=== PATIENT | male | born 1960 | race Caucasian/White ===

== ENCOUNTER 2017-03-09 10:45 | Emergency (ER) | payer MEDICARE, MEDICAID, SELFPAY ==
[2017-03-09 10:49] VITALS: BMI 40.3
--- NOTE | 2017-03-09 10:55 | CT_ITS ---
CT head/brain wo con Ordering Physician: Aubrey Barry MD Patient Age: 56 years: Male HISTORY: ITS.REASON: pinpoint pupils and lethargic . Mental status change. Pinpoint pupils. Lethargic. TECHNIQUE: Routine Axial CT head without contrast, brain and bone windows performed and sent to PACS COMPARISON :CT head without contrast 05/24/2015 FINDINGS Large extra axial slice subdural collection diffusely overlying the left cerebral hemisphere. It measures up to 17 mm maximum thickness in some areas. Is seen diffusely over the left cerebral hemisphere but most pronounced at left temporal lobe and frontal lobe just above the sylvian fissure.. . There is also small amount acute hyperdense subdural blood left extending into the anterior falx. .. Overall this subdural collection is hyperdense reflecting primarily acute blood, but there are some less dense areas here which may reflect prior subdural bleeding as well The resulting Prominent mass effect compresses entire left cerebral hemisphere,. This obliterates the sulci throughout the left cerebral hemisphere. & yields over 11 mm midline shift reflecting the transfalcine herniation. The left temporal horn is compressed/ obliterated. The left lateral ventricle is significantly compressed.. The ambient cistern remains evident but becomes asymmetric as we follow continue superior to this level on left.. Right cerebral hemisphere on, with no additional acute findings other than the stated mass effect... A which may contribute to the relative dilatation of occipital horn right lateral ventricle on today's study.. Right temporal horn unchanged. Tiny old lacunar infarct at the head of caudate on right measuring 4 mm x 2 mm, no change since previous CT. Posterior fossa. No significant change. Again the generous CSF space posterior to the cerebellar hemisphere noted, most evident the left. Prominent mucosal thickening bilateral ethmoid air cells with mild mucosal thickening sphenoid sinus and at the partially imaged maxillary sinuses. No skull fracture evident. Text notifying me to read this study received at 1138 Critical result called to KELLY Jones on 03/09/2017 11:43PM. But he had already reviewed and initiated helicopter transport. IMPRESSION 1.... Large, extensive Acute Hyperdense Subdural Hematoma overlying the left cerebral hemisphere.. Acute subdural blood is also seen between and along the anterior falx This large subdural hematoma yields severe Mass Effect upon the left cerebral hemisphere With at least 11 mm midline shift/ transfalcine herniation. (ER reviewed immediately after study completed & promptly initiated helicopter transport)
--- NOTE | 2017-03-09 10:55 | XR_ITS ---
XR chest portable Ordering Physician: Aubrey Barry MD Patient Age: 56 years: Male HISTORY: ITS.REASON: pinpoint pupils and lethargic TECHNIQUE: AP portable upright chest 11:15 AM COMPARISON :Previous portable chest 12/11/2016 FINDINGS Less than optimal inspiration and slightly lordotic chest limits this study but I see no acute findings. Mild accentuation of markings at the medial right base and elevation right hemidiaphragm is again seen is similar to previous studies reflecting some minimal scarring and possibly atelectasis. The left lung is stable unchanged. Cardiomegaly is been ana and mediastinal structures some unchanged. IMPRESSION: ---- Stable portable chest with nothing definite acute. Mild elevation right hemidiaphragm withLikely minimal scarring & atelectasis at right lung base-unchanged since previous CXR November 2016 Cardiomegaly
--- NOTE | 2017-03-09 10:55 | HMH.EDGENADL ---
ED Disposition Clinical Impression: Acute subdural hematoma, Leucocytosis Disposition: Xfer Short-Term Hosp Condition on Discharge: Serious Instructions: DI for Altered Mental Status Referrals: Roney Travis MD [Primary Care Provider] - Forms: Transfer Record - ED - Critical Care Critical Care Time: No Attestation: On 03/09/17, the high probability of a clinically significant, sudden or life threatening deterioration of the following system(s) required my full and direct attention, intervention and personal management. The time I documented below is in addition to time spent performing reported procedures but includes the following listed in this critical care notation. Medical Decision Making Vital Signs: 03/09/17 11:00 03/09/17 11:29 Pulse Rate [Right Brachial] 117 H 98 H Respiratory Rate 24 24 Blood Pressure [Right Arm] 129/93 94/59 Blood Pressure Mean [Right Arm] 105 70 Blood Pressure Source [Right Arm] Automatic Cuff Automatic Cuff Blood Pressure Position [Right Arm] Sitting Sitting 02 Sat by Pulse Oximetry 99 95 Oxygen Delivery Method Non-Rebreather Nasal Cannula Oxygen Flow Rate (LPM) 3 - Lab Data Lab Results 03/09/17 11:10: WBC 15.2 H, RBC 3.27 L, Hgb 9.5 L, Hct 32.0 L, MCV 97.8 H, MCH 29.1, MCHC 29.7 L, RDW 16.2, Plt Count 468 H, MPV 7.4, Neut % (Auto) 75.7, Lymph % (Auto) 15.0, Lane % (Auto) 7.0, Eos % (Auto) 1.6, Baso % (Auto) 0.6, Neut # (Auto) 11.5 H, Lymph # (Auto) 2.3, Lane # (Auto) 1.1 H, Eos # (Auto) 0.3, Baso # (Auto) 0.1 Result diagrams: 03/09/17 11:10 Orders (Tests/Meds): ORDERS Category Date Time Status CT head/brain wo con Stat Cat Scan 03/09/17 10:55 Taken XR chest portable Stat Exams 03/09/17 10:55 Taken Acetaminophen Stat Lab 03/09/17 11:10 Received Cardiac Enzymes Stat Lab 03/09/17 11:10 Received Complete Blood Count Auto Diff Stat Lab 03/09/17 11:10 Results Comprehensive Metabolic Panel Stat Lab 03/09/17 11:10 Received Drug Screen,Urine Stat Lab 03/09/17 10:55 Ordered Salicylate Stat Lab 03/09/17 11:10 Received - CT Data CT Scan: Head Time Received: 11:[address] Reviewed: Yes: I have reviewed the patient's CT results, I discussed the CT results w/the radiologist Preliminary Findings: Abnormal Findings Narrative: Left acute subdural hemorrhage. X-rays cardiomegaly no acute findings. - ECG Data Tracing #1 I reviewed this ECG and interpreted as documented below: Normal sinus rhythm 95/min no acute findings ECG initial impression date: 03/09/17 - Gaudencio Inquiry Pt receiving controlled substance: No Gaudencio was queried for this patient: No Medical Decision Making Narrative: I reviewed Mr. quezada CT scan and was positive for left acute subdural hemorrhage. Chest x-ray was positive for cardiomegaly no acute. His EKG was 95 bpm normal sinus with nothing acute. I contacted at 1130 discussed with at 1136 accepted the patient to [facility]. The patient remained hemodynamically stable with BP 95/56 mmhg, sat 96% 3 L NC, HR 93/min RR 28/min with no focal neurologic deficits. He remained alert and communicative with the nursing staff. Dr. Gonzalez the radiologist contacted me and informing me of 11 mm midline shift. I relayed this information to at [facility]. Patient departed [place] ED in a stable condition with the helicopter crew. General Adult HPI - General Chief complaint: Altered Mental Status Stated complaint: unresponsive Mode of Arrival: EMS Source of Information: Patient Limitations: No Limitations - History of Present Illness HPI narrative: 56 years old white male with multiple medical problems was found unresponsive in bed by the custodial staff. EMS was contacted and upon arrival there was no report given. Obtain the following vitals from the EMS staff blood pressure was 152/86mmhg, sat is 98% on nonrebreather. Sugar is 238 twice. Pupils were pinpointed ,
--- NOTE | 2017-03-09 10:59 | ED_ITS ---
ED Disposition Clinical Impression: Acute subdural hematoma, Leucocytosis Disposition: Xfer Short-Term Hosp Condition on Discharge: Serious Instructions: DI for Altered Mental Status Referrals: Roney Travis MD [Primary Care Provider] - Forms: Transfer Record - ED - Critical Care Critical Care Time: No Attestation: On 03/09/17, the high probability of a clinically significant, sudden or life threatening deterioration of the following system(s) required my full and direct attention, intervention and personal management. The time I documented below is in addition to time spent performing reported procedures but includes the following listed in this critical care notation. Medical Decision Making Vital Signs: 03/09/17 11:00 03/09/17 11:29 Pulse Rate [Right Brachial] 117 H 98 H Respiratory Rate 24 24 Blood Pressure [Right Arm] 129/93 94/59 Blood Pressure Mean [Right Arm] 105 70 Blood Pressure Source [Right Arm] Automatic Cuff Automatic Cuff Blood Pressure Position [Right Arm] Sitting Sitting 02 Sat by Pulse Oximetry 99 95 Oxygen Delivery Method Non-Rebreather Nasal Cannula Oxygen Flow Rate (LPM) 3 - Lab Data Lab Results 03/09/17 11:10: WBC 15.2 H, RBC 3.27 L, Hgb 9.5 L, Hct 32.0 L, MCV 97.8 H, MCH 29.1, MCHC 29.7 L, RDW 16.2, Plt Count 468 H, MPV 7.4, Neut % (Auto) 75.7, Lymph % (Auto) 15.0, [place] % (Auto) 7.0, Eos % (Auto) 1.6, Baso % (Auto) 0.6, Neut # (Auto) 11.5 H, Lymph # (Auto) 2.3, [place] # (Auto) 1.1 H, Eos # (Auto) 0.3 , Baso # (Auto) 0.1 Result diagrams: 03/09/17 11:10 Orders (Tests/Meds): ORDERS Category Date Time Status CT head/brain wo con Stat Cat Scan 03/09/17 10:55 Taken XR chest portable Stat Exams 03/09/17 10:55 Taken Acetaminophen Stat Lab 03/09/17 11:10 Received Cardiac Enzymes Stat Lab 03/09/17 11:10 Received Complete Blood Count Auto Diff Stat Lab 03/09/17 11:10 Results Comprehensive Metabolic Panel Stat Lab 03/09/17 11:10 Received Drug Screen,Urine Stat Lab 03/09/17 10:55 Ordered Salicylate Stat Lab 03/09/17 11:10 Received - CT Data CT Scan: Head Time Received: 11:[address] Reviewed: Yes: I have reviewed the patient's CT results, I discussed the CT results w/the radiologist Preliminary Findings: Abnormal Findings Narrative: Left acute subdural hemorrhage. X-rays cardiomegaly no acute findings. - ECG Data Tracing #1 I reviewed this ECG and interpreted as documented below: Normal sinus rhythm 95/min no acute findings ECG initial impression date: 03/09/17 - Gaudencio Inquiry Pt receiving controlled substance: No Gaudencio was queried for this patient: No Medical Decision Making Narrative: I reviewed Mr. quezada CT scan and was positive for left acute subdural hemorrhage. Chest x-ray was positive for cardiomegaly no acute. His EKG was 95 bpm normal sinus with nothing acute. I contacted at 1130 discussed with at 1136 accepted the patient to [facility]. The patient remained hemodynamically stable with BP 95/56 mmhg, sat 96% 3 L NC, HR 93/min RR 28/min with no focal neurologic deficits. He remained alert and communicative with the nursing staff. Dr. Gonzalez the radiologist contacted me and informing me of 11 mm midline shift. I relayed this information to at [facility]. Patient departed [place] ED in a stable condition with the
[2017-03-09 11:00] VITALS: BP 129/93; PULSE 117; RESP 24; O2SAT 99; BMI 42.3
[2017-03-09 11:29] VITALS: BP 94/59; PULSE 98; RESP 24; O2SAT 95
--- NOTE | 2017-03-09 11:34 | PC.NURSE ---
1105- PT TO CT WITH NURSE AND CREDIT COLLECTIONS REP. 1123- PT BACK TO ED FROM CT.
--- NOTE | 2017-03-09 11:36 | PC.NURSE ---
1136- ON PHONE WITH FOR POSSIBLE TRANSFER.
--- NOTE | 2017-03-09 11:37 | PC.NURSE ---
1137- PT ACCEPTED BY AT [facility] ED.
[2017-03-09 11:42] LABS: Basophils # 0.1 K/mm3 (0-0.2); Basophils % 0.6 % (0.1-2.0); Eosinophils # 0.3 K/mm3 (0.0-0.4); Eosinophils % 1.6 % (0.1-12.0); Hemoglobin 9.5 g/dL (14.1-18.0); Lymphocytes # 2.3 K/mm3 (0.7-4.5); Mean Corpuscular HGB Conc 29.7 g/dL (31.8-35.4); Mean Corpuscular Hemoglobin 29.1 pg (27.0-31.2); Mean Corpuscular Volume 97.8 fl (80-94); Mean Platelet Volume 7.4 fl (7.4-10.4); Monocytes # 1.1 K/mm3 (0.1-1.0); Neutrophils # 11.5 K/mm3 (1.8-7.8); Neutrophils % 75.7 % (37.0-80.0); Platelet Count 468 K/mm3 (142-424); Red Blood Count 3.27 M/mm3 (4.60-6.20); Red Cell Distribution Width 16.2 % (11.5-17.5); White Blood Count 15.2 K/mm3 (4.8-10.8)
[2017-03-09 11:43] LABS: MANUAL DIFFERENTIAL MANUAL DIFFERENTIAL (MANUAL DIFF)
[2017-03-09 12:05] VITALS: BP 94/59; PULSE 98; RESP 24; O2SAT 95
[2017-03-09 12:07] LABS: Eosinophils % 3 % (0-3); Lymphocytes % 20 % (10-50); Monocytes % 9 % (2-9); Neutrophils % 68 % (42-76); Platelet Estimate Slight Increase; RBC Morphology Normal; Total Cells Counted 100
[2017-03-09 12:16] LABS: Alanine Aminotransferase 29 U/L (12-78); Albumin Level 3.1 gm/dL (3.4-5.0); Albumin/Globulin Ratio 0.6 (1.1-1.8); Alkaline Phosphatase 100 U/L (46-116); Anion Gap 16.4 mEq/L (5-15); Aspartate Amino Transferase 33 U/L (15-37); Bilirubin,Total 0.4 mg/dL (0.2-1.0); Blood Urea Nitrogen 12 mg/dL (7-18); CKMB Relative Index 2.3 U/L (0-4.0); Calcium 8.6 mg/dL (8.5-10.1); Carbon Dioxide 26 mmol/L (21.0-32.0); Chloride 96 mmol/L (98-107); Creatine Kinase 341 U/L (39-308); Creatinine Clearance Estimated 47 mL/min (0-300); Creatinine,Serum 1.32 mg/dL (0.70-1.30); Estimated Glomerular Filt Rate 56 ml/min (>60); GFR (African American) 67 ML/MIN (>60); Globulin 5.6 gm/dl (1.3-3.2); Glucose 243 mg/dL (74-106); Potassium 4.4 mmoL/L (3.5-5.1); Salicylate 1.5 mg/dL (2.8-20.0); Sodium 134 mmol/L (136-145); Total Protein,Serum 8.7 gm/dL (6.4-8.2); Troponin I < 0.02 ng/ml (0.00-0.06)
[2017-03-09 12:18] LABS: Acetaminophen 0 ug/mL (10-30)
== END 2017-03-09 11:58 | disposition short-term general hospital (02) ==
PROVIDERS: Emergency Provider Emergency Medicine; PCP Emergency Medicine
DX: I62.01 Nontraumatic acute subdural hemorrhage (principal); D72.829 Elevated white blood cell count, unspecified
CPT/HCPCS: 70450; 71045; 80053; 80329; 82550; 82553; 84484; 85007; 85025; 93005; 96372; 99284

== ENCOUNTER → 2017-03-25 14:13 | Outpatient (POV) | payer MEDICARE, MEDICAID, SELFPAY | PROVIDERS: PCP Emergency Medicine; Visit Provider Internal Medicine | DX: Z00.00 Encounter for general adult medical examination without abnormal findings (principal) ==

== ENCOUNTER → 2017-10-14 11:22 | Outpatient (POV) | payer MEDICARE, MEDICAID, SELFPAY | PROVIDERS: PCP Emergency Medicine; Visit Provider Internal Medicine | DX: Z00.00 Encounter for general adult medical examination without abnormal findings (principal) ==

== ENCOUNTER 2017-11-10 19:42 | Observation (INO) ==
[2017-11-10 20:04] LABS: Basophils # 0.1 K/mm3 (0-0.2); Basophils % 0.4 % (0.1-2.0); Eosinophils # 0.3 K/mm3 (0.0-0.4); Eosinophils % 1.8 % (0.1-12.0); Hematocrit 31.3 % (42.0-52.0); Hemoglobin 9.8 g/dL (14.1-18.0); Lymphocytes # 1.5 K/mm3 (0.7-4.5); Lymphocytes % 10.5 K/mm3 (10-50); Mean Corpuscular HGB Conc 31.2 g/dL (31.8-35.4); Mean Corpuscular Hemoglobin 30.6 pg (27.0-31.2); Mean Corpuscular Volume 98.2 fl (80-94); Mean Platelet Volume 7.9 fl (7.4-10.4); Monocytes # 0.8 K/mm3 (0.1-1.0); Monocytes % 5.4 % (1.7-9.3); Neutrophils % 81.9 % (37.0-80.0); Platelet Count 329 K/mm3 (142-424); Red Blood Count 3.19 M/mm3 (4.60-6.20); Red Cell Distribution Width 14.5 % (11.5-17.5); White Blood Count 14.7 K/mm3 (4.8-10.8)
[2017-11-10 20:28] LABS: Albumin Level 3.2 gm/dL (3.4-5.0); Albumin/Globulin Ratio 0.7 (1.1-1.8); Anion Gap 12.3 mEq/L (5-15); Bilirubin,Total 0.2 mg/dL (0.2-1.0); Globulin 4.8 gm/dl (1.3-3.2); Potassium 4.3 mmoL/L (3.5-5.1)
--- NOTE | 2017-11-10 20:53 | Emergency Department Note ---
ED Disposition Clinical Impression: Abdominal pain Qualifiers: Abdominal location: left lower quadrant Qualified Code(s): R10.32 - Left lower quadrant pain Leucocytosis Qualifiers: Leukocytosis type: unspecified Qualified Code(s): D72.829 - Elevated white blood cell count, unspecified Disposition: Admitted as Observation Condition on Discharge: Good Instructions: DI for Acute Abdomen Referrals: Roney Travis MD [Primary Care Provider] - - Critical Care Critical Care Time: No Attestation: On 11/10/17, the high probability of a clinically significant, sudden or life threatening deterioration of the following system(s) required my full and direct attention, intervention and personal management. The time I documented below is in addition to time spent performing reported procedures but includes the following listed in this critical care notation. Medical Decision Making - Medical Records Medical records reviewed: Yes: I reviewed the patient's medical records. - Gaudencio Inquiry Pt receiving controlled substance: No Vital Signs: 11/10/17 19:43 11/10/17 20:24 11/10/17 20:30 Temperature 98.8 F Temperature Source Rectal Pulse Rate [Right Brachial] 109 H 103 H 95 H Respiratory Rate 19 18 16 Blood Pressure [Right Arm] 89/56 87/65 102/51 Blood Pressure Mean [Right Arm] 67 72 68 02 Sat by Pulse Oximetry 100 99 97 Oxygen Delivery Method Nasal Cannula Nasal Cannula Oxygen Flow Rate (LPM) 2 2 11/10/17 21:30 Temperature 98.7 F Temperature Source Oral Pulse Rate [Right Brachial] 91 H Respiratory Rate 17 Blood Pressure [Right Arm] 100/63 Blood Pressure Mean [Right Arm] 75 02 Sat by Pulse Oximetry 97 Oxygen Delivery Method Oxygen Flow Rate (LPM) - Lab Data Lab results reviewed: Yes: I reviewed the patient's lab results. Lab Results 11/10/17 19:50: WBC 14.7 H, RBC 3.19 L, Hgb 9.8 L, Hct 31.3 L, MCV 98.2 H, MCH 30.6, MCHC 31.2 L, RDW 14.5, Plt Count 329, MPV 7.9, Neut % (Auto) 81.9 H, Lymph % (Auto) 10.5, [place] % (Auto) 5.4, Eos % (Auto) 1.8, Baso % (Auto) 0.4, Neut # (Auto) 12.0 H, Lymph # (Auto) 1.5, [place] # (Auto) 0.8, Eos # (Auto) 0.3, Baso # (Auto) 0.1 11/10/17 19:50: Sodium 137, Potassium 4.3, Chloride 101, Carbon Dioxide 28, Anion Gap 12.3, BUN 15, Creatinine 2.18 H, Estimated Creat Clear 31, Estimated GFR 31 L, Est GFR ( Amer) 38 L, Glucose 108 H, Calcium 9.0, Total Bilirubin 0.2, AST 8 L, ALT 16, Alkaline Phosphatase 86, Total Protein 8.0, Albumin 3.2 L, Globulin 4.8 H, Albumin/Globulin Ratio 0.7 L, Amylase 55, Lipase 345 11/10/17 19:50: Lactate 3.3 H 11/10/17 21:00: Urine Color Yellow, Urine Appearance Clear, Urine pH 5.5, Ur Specific [place] 1.025, Urine Protein Negative, Urine Glucose (UA) Negative, Urine Ketones Negative, Urine Blood Negative, Urine Nitrate Negative, Urine Bilirubin Negative, Urine Urobilinogen 0.2, Ur Leukocyte Esterase Negative, Urine RBC None, Urine WBC 3-5, Ur Squamous Epith Cells 5-10, Urine Bacteria 1+, Hyaline Casts 3-5 Result diagrams: 11/10/17 19:50 11/10/17 19:50 Orders (Tests/Meds): ED MEDICATIONS Generic Name Dose Route Start Last Admin Trade Name Freq PRN Reason Stop Dose Admin Sodium Chloride 1,000 mls @ 999 mls/hr 11/10/17 21:45 Sod Chlor 0.9% 1000ml Bag IV 11/10/17 22:45 .Q1H1M ANSON Discontinued Medications Generic Name Dose Route Start Last Admin Trade Name Freq PRN Reason Stop Dose Admin Sodium Chloride 1,000 mls @ 999 mls/hr 11/10/17 20:15 11/10/17 20:13 Sod Chlor 0.9% 1000ml Bag IV 11/10/17 21:15 999 mls/hr .Q1H1M ANSON Administration Ondansetron HCl 4 mg 11/10/17 20:11 11/10/17 20:13 Zofran 4mg/2ml Vial IV 11/10/17 20:12 4 mg ONCE ONE Administration ORDERS Category Date Time Status CT abdomen pelvis wo con Stat Cat Scan 11/10/17 19:52 Taken Lactic Acid Follow Up (RFLX 1) Stat Lab 11/10/17 20:31 Ordered Urinalysis and Microscopic Stat Lab 11/10/17 21:00 Ordered - CT Data CT Scan: Abdomen, Pelvis Time Received: 22:[address] Reviewed: Yes: I have viewed the radiologist's interpretation Preliminary Findings: Normal/NAD Nausea/Vomiting/Diarrhea HPI - General Chief complaint: Abdominal Pain Stated complaint: abd pain Time Seen by Provider: 11/10/17 20:30 Mode of Arrival: EMS Source of Information: Patient, EMS, Medical Record Limitations: Physical Limitations Description of Symptoms (Recalled from ER Triage Doc. by RN): Brought in by EMS from [place] for c/o LLQ pain since 399, also with diarrhea. NH reported that they gave him something for the diarrhea earlier today, no c/o nausea. Also stated pt has had low BP - History of Present Illness HPI Narrative: lt lower abd pain today with reported diarrhea with no fever but low bp from ecf -pt denied any specific c/o at this time MD complaint: diarrhea, abdominal pain Onset (ago): day(s) Associated Abdominal Pain: Yes Location of pain: LLQ Severity: moderate Associated symptoms: denies other symptoms - Related Data Home Medications Medication Instructions Recorded Confirmed aripiprazole 15 mg tablet 15 mg PO HS 03/24/17 11/10/17 aspirin 81 mg tablet,delayed 81 mg PO ONCE 03/24/17 11/10/17 release atorvastatin 40 mg tablet 40 mg PO HS 03/24/17 11/10/17 bupropion HCl SR 200 mg tablet,12 150 mg PO BID 03/24/17 11/10/17 hr sustained-release docusate sodium 250 mg capsule 250 mg PO DAILYP PRN 03/24/17 11/10/17 furosemide 80 mg tablet 80 mg PO BID tab 03/24/17 11/10/17 levothyroxine 100 mcg tablet 50 mcg PO DAILY tab 03/24/17 11/10/17 loratadine 10 mg tablet 10 mg PO DAILY 03/24/17 11/10/17 losartan 25 mg tablet 25 mg PO DAILY 03/24/17 11/10/17 metformin 1,000 mg tablet 1,000 mg PO BID 03/24/17 11/10/17 tamsulosin 0.4 mg capsule 0.4 mg PO DAILY 03/24/17 11/10/17 trazodone 100 mg tablet 100 mg PO BID tab 03/24/17 11/10/17 isosorbide mononitrate ER 30 mg 30 mg PO DAILY 04/11/17 11/10/17 tablet,extended release 24 hr folic acid 0.8 mg capsule 0.8 mg PO DAILY 09/30/17 11/10/17 loperamide 2 mg capsule 2 mg PO Q4H 09/30/17 11/10/17 magnesium oxide 400 mg capsule 400 mg PO DAILY cap 09/30/17 11/10/17 potassium chloride 20 mEq oral 40 meq PO BID packet 09/30/17 11/10/17 packet spironolactone 50 mg tablet 50 mg PO BID tab 09/30/17 11/10/17 vitamin B complex tablet 1 tab PO DAILY 09/30/17 11/10/17 Acetaminophen 500 mg PO Q4HP PRN 11/10/17 11/10/17 Linagliptin [Tradjenta 5mg tablet] 5 mg PO DAILY 11/10/17 11/10/17 Omeprazole [Omeprazole 20mg 20 mg PO DAILY 11/10/17 11/10/17 Capsule] Allergies Allergy/AdvReac Type Severity Reaction Status Date / Time morphine [MORPHINE] Allergy Mild "HURTS Verified 08/05/17 18:06 STOMACH" [facility] History I have reviewed the patient's past medical history: Yes Medical History: Reports:: Anxiety, Asthma, Congestive Heart Failure, Coronary Artery Disease, Depression, Diabetes Mellitus Type 2, Gastroesophageal Reflux Disease(GERD), Hyperlipidemia, Hypertension, Lung Disease Denies:: Diabetes Mellitus Type 1, Internal Pacemaker, Seizures Other Medical History: Reports: Anemia, Hypothyroidism, Thyroid Disease, Other Comment: subdural hematoma Laterality Cases: Bilateral: Carpal Tunnel Release Other Surgeries: Yes: No Previous Surgery, Coronary Stent, EGD, Hernia Repair, Other. No: Pacemaker Amputation: No Fractures: No - Social History Smoking Status: Former smoker Alcohol Intake: never Alcohol Intake Frequency:: other Substance Use Type: denies use - Psychiatric History Expresses thoughts of harming self/others: None Suicide Plan Description: No Plan Pschychiatric History:: Reports:: Anxiety, Depression Family Hx:: Hyperlipidemia, Diabetes, Heart Attack, Kidney Disease Comment: lung disease, ROS Obtained: Yes All systems reviewed & no additional complaints - Constitutional Constitutional: Denies fever(s) - Eyes Eyes: Denies change in vision - ENT Ears, Nose, Mouth, and Throat: Denies sore throat - Cardiovascular Cardiovascular: Denies chest pain - Respiratory Respiratory: No cough - Gastrointestinal Gastrointestingal: Reports: as per HPI, abdominal pain, diarrhea. Denies: vomiting - Genitourinary Male Genitourinary: Denies hematuria - Musculoskeletal Musculoskeletal: Denies joint pain - Integumentary/Breasts Skin/Breast: Denies rash - Neurologic Neurologic: Denies seizure-like activity Physical Exam - General General appearance: in no apparent distress, obese - Head Head exam: normocephalic - Eye Eye exam: Present: PERRL, EOMI - ENT ENT exam: Present: mucous membranes dry - Neck Neck exam: Present: trachea midline - Respiratory Respiratory exam: Present: other (dec bs bilat ) - Cardiovascular Cardiovascular exam: Present: regular rate, systolic murmur - Abdominal Exam Abdominal exam: Present: soft, tenderness Abdominal tenderness: Present: LLQ - Extremities Exam Extremities exam: Absent: calf tenderness - Neurological Exam Neurological exam: Present: alert, CN II-XII intact - Psychiatric Psychiatric exam: Present: normal affect - Skin Skin exam: Absent: rash
[2017-11-10 21:04] LABS: Microscopic, Urine URINE MICROSCOPIC (MICROSCOPIC)
[2017-11-10 21:24] LABS: Appearance,Urine CLEAR (Clear); Bilirubin,Urine Negative (Negative); Blood, Urine Negative (Negative); Color,Urine YELLOW (Yellow); Glucose,Urine (UA) Negative (Negative); Ketones,Urine Negative (Negative); Leukocyte Esterase,Urine Negative (Negative); PH,Urine 5.5 (5.0-8.5); Protein,Urine Negative (Negative); Specific Gravity, Urine 1.025 (1.005-1.030); Urobilinogen,Urine 0.2 EU/dl (0.2)
[2017-11-10 21:43] LABS: Bacteria,Urine 1+ /lpf
[2017-11-11 06:22] LABS: Basophils % 0.4 % (0.1-2.0); Eosinophils # 0.2 K/mm3 (0.0-0.4); Eosinophils % 2.4 % (0.1-12.0); Hematocrit 25.4 % (42.0-52.0); Lymphocytes # 1.9 K/mm3 (0.7-4.5); Lymphocytes % 19.4 K/mm3 (10-50); Mean Corpuscular HGB Conc 31.7 g/dL (31.8-35.4); Mean Corpuscular Hemoglobin 31.5 pg (27.0-31.2); Mean Corpuscular Volume 99.6 fl (80-94); Mean Platelet Volume 8.7 fl (7.4-10.4); Monocytes # 0.7 K/mm3 (0.1-1.0); Monocytes % 6.6 % (1.7-9.3); Neutrophils # 7.1 K/mm3 (1.8-7.8); Neutrophils % 71.2 % (37.0-80.0); Platelet Count 265 K/mm3 (142-424); Red Blood Count 2.55 M/mm3 (4.60-6.20); Red Cell Distribution Width 14.5 % (11.5-17.5)
[2017-11-11 06:41] LABS: Anion Gap 10.9 mEq/L (5-15); Potassium 3.9 mmoL/L (3.5-5.1)
[2017-11-11 06:47] LABS: Calcium 7.7 mg/dL (8.5-10.1)
--- NOTE | 2017-11-11 07:55 | Pharmacy Consult Notes ---
[facility] Pharmacy VTE Monitoring - Patient Demographics Admission date: 11/10/17 Report Date: 11/11/17 Time: 07:55 Allergies/Adverse Reactions: Patient Allergies morphine [MORPHINE] Allergy (Mild, Verified 08/05/17 18:06) "HURTS STOMACH" Height: 1.57 m Weight: 99.8 kg Patient Problems: Current Active Problems Leucocytosis (Acute) Abdominal pain (Acute) - VTE Risk Labs: VTE Related Lab Results Hgb 8.0 g/dL (14.1-18.0) L 11/11/17 06:15 Hct 25.4 % (42.0-52.0) L 11/11/17 06:15 Plt Count 265 K/mm3 (142-424) 11/11/17 06:15 BUN 12 mg/dL (7-18) 11/11/17 06:15 Creatinine 1.75 mg/dL (0.70-1.30) H 11/11/17 06:15 Estimated Creat Clear 65 mL/min (0-300) 11/11/17 06:15 Was VTE Risk Assessment Performed: Yes VTE Score: 8 VTE Risk Level: Moderate Risk - Prophylaxis VTE Prophylaxis Ordered?: Yes Types of VTE Prophylaxis: TEDS Knee High Location of Applied Device: Bilateral Lower Extremeties - VTE Diagnosis Confirmed Treatment or plan recommended: Continue Current Treatment
--- NOTE | 2017-11-11 09:04 | History & Physical Report ---
*Admission Date: 11/10/17 *Chief complaint: abd pain *History of present illness: pt with abd pain and low bp at [facility] and no vomiting and had an episode of diarrhea -pt with no fever - pt c/o of intermittant lower abd pain on left - pt was seen in the ed with inc wbc, sed rate and lactic acid - pt was admitted for ivf and given abx at this time [facility] History I have reviewed the patient's past medical history: Yes Medical History: Reports:: Anxiety, Asthma, Congestive Heart Failure, Coronary Artery Disease, Depression, Diabetes Mellitus Type 2, Gastroesophageal Reflux Disease(GERD), Hyperlipidemia, Hypertension, Lung Disease Denies:: Cancer, Diabetes Mellitus Type 1, Internal Pacemaker, Seizures Other Medical History: Reports: Anemia, Hypothyroidism, Thyroid Disease, Other Laterality Cases: Bilateral: Carpal Tunnel Release Other Surgeries: Yes: No Previous Surgery, Coronary Stent, EGD, Hernia Repair, Other. No: Pacemaker Amputation: No Fractures: No - *Social History Educational Level: Completed High School Smoking Status: Former smoker Tobacco Type: cigarettes Alcohol Intake: former Alcohol Intake Frequency:: other Substance Use Type: marijuana Occupational Status: disabled Housing: [facility] Household Members: other - Psychiatric History Expresses thoughts of harming self/others: None Suicide Plan Description: No Plan Pschychiatric History:: Reports:: Anxiety, Depression *Family Hx:: Hyperlipidemia, Diabetes, Heart Attack, Kidney Disease Review of Systems - Review of Systems Review of systems:: pertinent systems reviewed and negative unless documented below - Constitutional Denies fever(s) - Eyes Denies change in vision - ENT Denies sore throat - *Cardiovascular Denies chest pain at rest - *Respiratory Denies cough - *Gastrointestinal Reports abdominal pain, Denies bright, red blood in stools, Denies nausea, Denies vomiting - *Genitourinary Denies decreased urination - *Musculoskeletal Denies joint pain - Integumentary/Breasts Denies rash - *Neurologic Denies seizure-like activity Meds Home Medications Medication Instructions Recorded Confirmed Type aripiprazole 15 mg tablet 15 mg PO HS 03/24/17 11/10/17 History aspirin 81 mg tablet,delayed 81 mg PO DAILY 03/24/17 11/11/17 History release atorvastatin 40 mg tablet 40 mg PO HS 03/24/17 11/10/17 History bupropion HCl SR 200 mg tablet,12 150 mg PO BID 03/24/17 11/10/17 History hr sustained-release docusate sodium 250 mg capsule 250 mg PO DAILY 03/24/17 11/11/17 History furosemide 80 mg tablet 80 mg PO BID tab 03/24/17 11/10/17 History loratadine 10 mg tablet 10 mg PO DAILY 03/24/17 11/10/17 History losartan 25 mg tablet 25 mg PO DAILY 03/24/17 11/10/17 History metformin 1,000 mg tablet 1,000 mg PO BID 03/24/17 11/10/17 History isosorbide mononitrate ER 30 mg 30 mg PO DAILY 04/11/17 11/10/17 History tablet,extended release 24 hr folic acid 0.8 mg capsule 0.8 mg PO DAILY 09/30/17 11/10/17 History loperamide 2 mg capsule 2 mg PO Q4HP PRN 09/30/17 11/11/17 History magnesium oxide 400 mg capsule 400 mg PO HS cap 09/30/17 11/11/17 History spironolactone 50 mg tablet 50 mg PO BID tab 09/30/17 11/10/17 History Acetaminophen 500 mg PO Q4HP PRN 11/10/17 11/10/17 History Linagliptin [Tradjenta 5mg tablet] 5 mg PO DAILY 11/10/17 11/10/17 History Omeprazole [Omeprazole 20mg 20 mg PO Q48H 11/10/17 11/11/17 History Capsule] Cyanocobalamin (Vitamin B-12) 750 mcg PO DAILY 11/11/17 11/11/17 History [Vitamin B-12] Levothyroxine Sodium 50 mcg PO DAILY 11/11/17 11/11/17 History [Levothyroxine 50mcg (0.05mg) Tab] Olopatadine HCl [Patanol] 1 drop OP BID 11/11/17 11/11/17 History Potassium Chloride [Klor-con 20 40 meq PO BID 11/11/17 11/11/17 History mEq tablet] Tamsulosin HCl [Flomax 0.4mg 0.4 mg PO DAILY 11/11/17 11/11/17 History capsule] Trazodone HCl 100 mg PO HS 11/11/17 11/11/17 History Allergies Allergy/AdvReac Type Severity Reaction Status Date / Time morphine [MORPHINE] Allergy Mild "HURTS Verified 08/05/17 18:06 STOMACH" Exam Vital signs and Labs for Last 24 Hours: Temp Pulse Resp BP Pulse Ox 97.3 F L 78 16 108/53 98 11/11/17 08:00 11/11/17 08:00 11/11/17 08:00 11/11/17 08:00 11/11/17 08:00 Laboratory Results - last 24 hr 11/10/17 19:50: WBC 14.7 H, RBC 3.19 L, Hgb 9.8 L, Hct 31.3 L, MCV 98.2 H, MCH 30.6, MCHC 31.2 L, RDW 14.5, Plt Count 329, MPV 7.9, Neut % (Auto) 81.9 H, Lymph % (Auto) 10.5, [place] % (Auto) 5.4, Eos % (Auto) 1.8, Baso % (Auto) 0.4, Neut # (Auto) 12.0 H, Lymph # (Auto) 1.5, [place] # (Auto) 0.8, Eos # (Auto) 0.3, Baso # (Auto) 0.1 11/10/17 19:50: Sodium 137, Potassium 4.3, Chloride 101, Carbon Dioxide 28, Anion Gap 12.3, BUN 15, Creatinine 2.18 H, Estimated Creat Clear 31, Estimated GFR 31 L, Est GFR ( Amer) 38 L, Glucose 108 H, Calcium 9.0, Total Bilirubin 0.2, AST 8 L, ALT 16, Alkaline Phosphatase 86, Total Protein 8.0, Albumin 3.2 L, Globulin 4.8 H, Albumin/Globulin Ratio 0.7 L, Amylase 55, Lipase 345 11/10/17 19:50: Lactate 3.3 H 11/10/17 19:50: ESR > 120 H 11/10/17 19:50: C-Reactive Protein 3.2 H 11/10/17 21:00: Urine Color Yellow, Urine Appearance Clear, Urine pH 5.5, Ur Specific [place] 1.025, Urine Protein Negative, Urine Glucose (UA) Negative, Urine Ketones Negative, Urine Blood Negative, Urine Nitrate Negative, Urine Bilirubin Negative, Urine Urobilinogen 0.2, Ur Leukocyte Esterase Negative, Urine RBC None, Urine WBC 3-5, Ur Squamous Epith Cells 5-10, Urine Bacteria 1+, Hyaline Casts 3-5 11/10/17 23:53: Lactate 2.8 H 11/11/17 01:50: Lactate 2.2 H 11/11/17 05:08: POC Glucose 115 H 11/11/17 05:30: Stool Occult Blood Negative 11/11/17 06:15: WBC 10.0 D, RBC 2.55 L, Hgb 8.0 L, Hct 25.4 L, MCV 99.6 H, MCH 31.5 H, MCHC 31.7 L, RDW 14.5, Plt Count 265, MPV 8.7, Neut % (Auto) 71.2, Lymph % (Auto) 19.4, [place] % (Auto) 6.6, Eos % (Auto) 2.4, Baso % (Auto) 0.4, Neut # (Auto) 7.1, Lymph # (Auto) 1.9, [place] # (Auto) 0.7, Eos # (Auto) 0.2, Baso # (Auto) 0.0 11/11/17 06:15: Sodium 137, Potassium 3.9, Chloride 103, Carbon Dioxide 27, Anion Gap 10.9, BUN 12, Creatinine 1.75 H, Estimated Creat Clear 65, Estimated GFR 40 L, Est GFR ( Amer) 49 L D, Glucose 100, Calcium 7.7 L D I & O for Last 24 hours: Intake & Output 11/08/17 11/09/17 11/10/17 11/11/17 11:59 11:59 11:59 11:59 Intake Total 1999 / 1999 Output Total 1100 / 1100 Balance 900 / 900 Weight 220 lb 0.341 oz - Constitutional no acute distress, obese - *Routine HEENT Exam Head: Present: normocephalic Eye: Present: EOMI, PERRL ENT: Present: mucous membranes dry - *Routine Neck Exam Present: supple - *Routine Respiratory Exam Present: decreased breath sounds - *Routine Cardiovascular Exam Present: RRR, murmur - *Routine Abdominal Exam Present: soft, tenderness - *Routine Extremities Exam Present: edema - *Routine Skin Exam Present: intact - *Routine Neurological Exam Present: alert, CN II-XII intact - Routine Psychiatric Exam Present: unable to assess Assessment and Plan (1) Elevated erythrocyte sedimentation rate Current visit: Yes Status: Acute Category: Medical Code(s): R70.0 - Elevated erythrocyte sedimentation rate (2) Abdominal pain Current visit: Yes Status: Acute Qualifiers: Abdominal location: left lower quadrant Qualified Code(s): R10.32 - Left lower quadrant pain Category: Medical Code(s): R10.9 - Unspecified abdominal pain (3) Anemia Current visit: Yes Status: Acute Qualifiers: Anemia type: unspecified type Qualified Code(s): D64.9 - Anemia, unspecified Category: Medical Code(s): D64.9 - Anemia, unspecified (4) Obesity Current visit: Yes Status: Acute Qualifiers: Body mass index: BMI 40.0-44.9 Category: Medical Code(s): E66.9 - Obesity, unspecified
--- NOTE | 2017-11-11 10:56 | Consult Report ---
*Admission Date: 11/10/17 *Chief complaint: "Not feeling well" *History of present illness: Patient is a 56-year-old white male who is a [facility] patient. He has reported history of some cognitive impairment and psychological issue. He was brought to the emergency department yesterday evening with abdominal pain. Workup in the emergency department revealed a leukocytosis. He was found to have elevated sed rate and C-reactive protein and mild elevated lactate of 3.3. He underwent CT scan without any contrast whatsoever which revealed no acute findings. Reportedly the patient was complaining localizing the symptomatology of the left lower quadrant surgical consultation was obtained this morning. Patient localizes the symptoms more towards the right lower quadrant at this time. Review of Systems - Review of Systems Review of systems:: unable to obtain - *Neurologic Denies seizure-like activity [facility] History Medical History: Reports:: Anxiety, Asthma, Congestive Heart Failure, Coronary Artery Disease, Depression, Diabetes Mellitus Type 2, Gastroesophageal Reflux Disease(GERD), Hyperlipidemia, Hypertension, Lung Disease Denies:: Cancer, Diabetes Mellitus Type 1, Internal Pacemaker, Seizures Other Medical History: Reports: Anemia, Hypothyroidism, Thyroid Disease, Other Laterality Cases: Bilateral: Carpal Tunnel Release Other Surgeries: Yes: No Previous Surgery, Coronary Stent, EGD, Hernia Repair, Other. No: Pacemaker Amputation: No Fractures: No - *Social History Educational Level: Completed High School Smoking Status: Former smoker Tobacco Type: cigarettes Alcohol Intake: former Alcohol Intake Frequency:: other Substance Use Type: marijuana Occupational Status: disabled Housing: [facility] Household Members: other - Psychiatric History Expresses thoughts of harming self/others: None Suicide Plan Description: No Plan Pschychiatric History:: Reports:: Anxiety, Depression *Family Hx:: Hyperlipidemia, Diabetes, Heart Attack, Kidney Disease Meds Home Medications Medication Instructions Recorded Confirmed Type aripiprazole 15 mg tablet 15 mg PO HS 03/24/17 11/10/17 History aspirin 81 mg tablet,delayed 81 mg PO DAILY 03/24/17 11/11/17 History release atorvastatin 40 mg tablet 40 mg PO HS 03/24/17 11/10/17 History bupropion HCl SR 200 mg tablet,12 150 mg PO BID 03/24/17 11/10/17 History hr sustained-release docusate sodium 250 mg capsule 250 mg PO DAILY 03/24/17 11/11/17 History furosemide 80 mg tablet 80 mg PO BID tab 03/24/17 11/10/17 History loratadine 10 mg tablet 10 mg PO DAILY 03/24/17 11/10/17 History losartan 25 mg tablet 25 mg PO DAILY 03/24/17 11/10/17 History metformin 1,000 mg tablet 1,000 mg PO BID 03/24/17 11/10/17 History isosorbide mononitrate ER 30 mg 30 mg PO DAILY 04/11/17 11/10/17 History tablet,extended release 24 hr folic acid 0.8 mg capsule 0.8 mg PO DAILY 09/30/17 11/10/17 History loperamide 2 mg capsule 2 mg PO Q4HP PRN 09/30/17 11/11/17 History magnesium oxide 400 mg capsule 400 mg PO HS cap 09/30/17 11/11/17 History spironolactone 50 mg tablet 50 mg PO BID tab 09/30/17 11/10/17 History Acetaminophen 500 mg PO Q4HP PRN 11/10/17 11/10/17 History Linagliptin [Tradjenta 5mg tablet] 5 mg PO DAILY 11/10/17 11/10/17 History Omeprazole [Omeprazole 20mg 20 mg PO Q48H 11/10/17 11/11/17 History Capsule] Cyanocobalamin (Vitamin B-12) 750 mcg PO DAILY 11/11/17 11/11/17 History [Vitamin B-12] Levothyroxine Sodium 50 mcg PO DAILY 11/11/17 11/11/17 History [Levothyroxine 50mcg (0.05mg) Tab] Olopatadine HCl [Patanol] 1 drop OP BID 11/11/17 11/11/17 History Potassium Chloride [Klor-con 20 40 meq PO BID 11/11/17 11/11/17 History mEq tablet] Tamsulosin HCl [Flomax 0.4mg 0.4 mg PO DAILY 11/11/17 11/11/17 History capsule] Trazodone HCl 100 mg PO HS 11/11/17 11/11/17 History Allergies Allergy/AdvReac Type Severity Reaction Status Date / Time morphine [MORPHINE] Allergy Mild "HURTS Verified 08/05/17 18:06 STOMACH" Exam Vital signs and Labs for Last 24 Hours: Temp Pulse Resp BP Pulse Ox 97.3 F L 78 16 108/53 98 11/11/17 08:00 11/11/17 08:00 11/11/17 08:00 11/11/17 08:00 11/11/17 08:00 Laboratory Results - last 24 hr 11/10/17 19:50: WBC 14.7 H, RBC 3.19 L, Hgb 9.8 L, Hct 31.3 L, MCV 98.2 H, MCH 30.6, MCHC 31.2 L, RDW 14.5, Plt Count 329, MPV 7.9, Neut % (Auto) 81.9 H, Lymph % (Auto) 10.5, [place] % (Auto) 5.4, Eos % (Auto) 1.8, Baso % (Auto) 0.4, Neut # (Auto) 12.0 H, Lymph # (Auto) 1.5, [place] # (Auto) 0.8, Eos # (Auto) 0.3, Baso # (Auto) 0.1 11/10/17 19:50: Sodium 137, Potassium 4.3, Chloride 101, Carbon Dioxide 28, Anion Gap 12.3, BUN 15, Creatinine 2.18 H, Estimated Creat Clear 31, Estimated GFR 31 L, Est GFR ( Amer) 38 L, Glucose 108 H, Calcium 9.0, Total Bilirubin 0.2, AST 8 L, ALT 16, Alkaline Phosphatase 86, Total Protein 8.0, Albumin 3.2 L, Globulin 4.8 H, Albumin/Globulin Ratio 0.7 L, Amylase 55, Lipase 345 11/10/17 19:50: Lactate 3.3 H 11/10/17 19:50: ESR > 120 H 11/10/17 19:50: C-Reactive Protein 3.2 H 11/10/17 21:00: Urine Color Yellow, Urine Appearance Clear, Urine pH 5.5, Ur Specific [place] 1.025, Urine Protein Negative, Urine Glucose (UA) Negative, Urine Ketones Negative, Urine Blood Negative, Urine Nitrate Negative, Urine Bilirubin Negative, Urine Urobilinogen 0.2, Ur Leukocyte Esterase Negative, Urine RBC None, Urine WBC 3-5, Ur Squamous Epith Cells 5-10, Urine Bacteria 1+, Hyaline Casts 3-5 11/10/17 23:53: Lactate 2.8 H 11/11/17 01:50: Lactate 2.2 H 11/11/17 05:08: POC Glucose 115 H 11/11/17 05:30: Stool Occult Blood Negative 11/11/17 06:15: WBC 10.0 D, RBC 2.55 L, Hgb 8.0 L, Hct 25.4 L, MCV 99.6 H, MCH 31.5 H, MCHC 31.7 L, RDW 14.5, Plt Count 265, MPV 8.7, Neut % (Auto) 71.2, Lymph % (Auto) 19.4, [place] % (Auto) 6.6, Eos % (Auto) 2.4, Baso % (Auto) 0.4, Neut # (Auto) 7.1, Lymph # (Auto) 1.9, [place] # (Auto) 0.7, Eos # (Auto) 0.2, Baso # (Auto) 0.0 11/11/17 06:15: Sodium 137, Potassium 3.9, Chloride 103, Carbon Dioxide 27, Anion Gap 10.9, BUN 12, Creatinine 1.75 H, Estimated Creat Clear 65, Estimated GFR 40 L, Est GFR ( Amer) 49 L D, Glucose 100, Calcium 7.7 L D 11/11/17 09:50: Troponin I < 0.02 I & O for Last 24 hours: Intake & Output 11/08/17 11/09/17 11/10/17 11/11/17 11:59 11:59 11:59 11:59 Intake Total 2000 / 2000 Output Total 1100 / 1100 Balance 900 / 900 Weight 220 lb 0.341 oz - Constitutional no acute distress - *Routine HEENT Exam Head: Present: normocephalic - *Routine Respiratory Exam Present: distant breath sounds - *Routine Cardiovascular Exam Present: Normal S1, Normal S2 - *Routine Abdominal Exam Present: soft Comments: On examination patient's abdomen is soft. He has somewhat hyperactive bowel sounds. He seems to have some tenderness in the right lower quadrant with deep palpation without guarding or rebound. Results - Labs 11/11/17 06:15 11/11/17 06:15 Laboratory Results - last 24 hr 11/10/17 19:50: WBC 14.7 H, RBC 3.19 L, Hgb 9.8 L, Hct 31.3 L, MCV 98.2 H, MCH 30.6, MCHC 31.2 L, RDW 14.5, Plt Count 329, MPV 7.9, Neut % (Auto) 81.9 H, Lymph % (Auto) 10.5, [place] % (Auto) 5.4, Eos % (Auto) 1.8, Baso % (Auto) 0.4, Neut # (Auto) 12.0 H, Lymph # (Auto) 1.5, [place] # (Auto) 0.8, Eos # (Auto) 0.3, Baso # (Auto) 0.1 11/10/17 19:50: Sodium 137, Potassium 4.3, Chloride 101, Carbon Dioxide 28, Anion Gap 12.3, BUN 15, Creatinine 2.18 H, Estimated Creat Clear 31, Estimated GFR 31 L, Est GFR ( Amer) 38 L, Glucose 108 H, Calcium 9.0, Total Bilirubin 0.2, AST 8 L, ALT 16, Alkaline Phosphatase 86, Total Protein 8.0, Albumin 3.2 L, Globulin 4.8 H, Albumin/Globulin Ratio 0.7 L, Amylase 55, Lipase 345 11/10/17 19:50: Lactate 3.3 H 11/10/17 19:50: ESR > 120 H 11/10/17 19:50: C-Reactive Protein 3.2 H 11/10/17 21:00: Urine Color Yellow, Urine Appearance Clear, Urine pH 5.5, Ur Specific [place] 1.025, Urine Protein Negative, Urine Glucose (UA) Negative, Urine Ketones Negative, Urine Blood Negative, Urine Nitrate Negative, Urine Bilirubin Negative, Urine Urobilinogen 0.2, Ur Leukocyte Esterase Negative, Urine RBC None, Urine WBC 3-5, Ur Squamous Epith Cells 5-10, Urine Bacteria 1+, Hyaline Casts 3-5 11/10/17 23:53: Lactate 2.8 H 11/11/17 01:50: Lactate 2.2 H 11/11/17 05:08: POC Glucose 115 H 11/11/17 05:30: Stool Occult Blood Negative 11/11/17 06:15: WBC 10.0 D, RBC 2.55 L, Hgb 8.0 L, Hct 25.4 L, MCV 99.6 H, MCH 31.5 H, MCHC 31.7 L, RDW 14.5, Plt Count 265, MPV 8.7, Neut % (Auto) 71.2, Lymph % (Auto) 19.4, [place] % (Auto) 6.6, Eos % (Auto) 2.4, Baso % (Auto) 0.4, Neut # (Auto) 7.1, Lymph # (Auto) 1.9, [place] # (Auto) 0.7, Eos # (Auto) 0.2, Baso # (Auto) 0.0 11/11/17 06:15: Sodium 137, Potassium 3.9, Chloride 103, Carbon Dioxide 27, Anion Gap 10.9, BUN 12, Creatinine 1.75 H, Estimated Creat Clear 65, Estimated GFR 40 L, Est GFR ( Amer) 49 L D, Glucose 100, Calcium 7.7 L D 11/11/17 09:50: Troponin I < 0.02 Assessment and Plan (1) Elevated erythrocyte sedimentation rate Current visit: Yes Status: Acute Category: Medical Code(s): R70.0 - Elevated erythrocyte sedimentation rate (2) Abdominal pain Current visit: Yes Status: Acute Qualifiers: Abdominal location: left lower quadrant Qualified Code(s): R10.32 - Left lower quadrant pain Category: Medical Code(s): R10.9 - Unspecified abdominal pain (3) Anemia Current visit: Yes Status: Acute Qualifiers: Anemia type: unspecified type Qualified Code(s): D64.9 - Anemia, unspecified Category: Medical Code(s): D64.9 - Anemia, unspecified (4) Obesity Current visit: Yes Status: Acute Qualifiers: Body mass index: BMI 40.0-44.9 Category: Medical Code(s): E66.9 - Obesity, unspecified - Assessment and plan all Dx Assessment and Plan for all problems:: I Reviewed the CT scan in great detail with the radiologist. The appendix cannot be definitively identified. Interestingly, there also appears to be some surgical changes in the anterior pelvis of uncertain etiology. It is unclear as to the etiology of the patient's symptoms or laboratory findings. Although he presented with elevation of creatinine this has shown some improvement and therefore the best plan of action may be CT scan with actual contrast including IV and oral contrast for better evaluation for any acute process. This does carry some slight increased risk for renal insult however the alternative investigative procedure may be laparoscopy under general anesthesia which carries much greater morbidity.
[2017-11-12 06:25] LABS: Basophils % 0.5 % (0.1-2.0); Eosinophils # 0.4 K/mm3 (0.0-0.4); Hematocrit 26.7 % (42.0-52.0); Hemoglobin 8.6 g/dL (14.1-18.0); Lymphocytes # 1.2 K/mm3 (0.7-4.5); Lymphocytes % 14.2 K/mm3 (10-50); Mean Corpuscular HGB Conc 32.1 g/dL (31.8-35.4); Mean Corpuscular Hemoglobin 31.2 pg (27.0-31.2); Mean Corpuscular Volume 97.2 fl (80-94); Mean Platelet Volume 8.8 fl (7.4-10.4); Monocytes # 0.5 K/mm3 (0.1-1.0); Monocytes % 5.6 % (1.7-9.3); Neutrophils # 6.1 K/mm3 (1.8-7.8); Neutrophils % 74.7 % (37.0-80.0); Platelet Count 273 K/mm3 (142-424); Red Blood Count 2.75 M/mm3 (4.60-6.20); Red Cell Distribution Width 14.4 % (11.5-17.5); White Blood Count 8.2 K/mm3 (4.8-10.8)
[2017-11-12 06:30] LABS: Anion Gap 9.8 mEq/L (5-15); Calcium 8.1 mg/dL (8.5-10.1); Potassium 3.8 mmoL/L (3.5-5.1)
--- NOTE | 2017-11-12 06:58 | Progress Note ---
Subjective Narrative: Patient resting. Doesn't seem to have any appreciable complaints. CT with contrast yesterday revealed no acute findings. Clear liquids started. Exam Vital signs and Labs for Last 24 Hours: Temp Pulse Resp BP Pulse Ox 98.8 F 91 H 14 100/51 93 L 11/12/17 04:00 11/12/17 04:00 11/12/17 04:00 11/12/17 04:00 11/12/17 04:00 Laboratory Results - last 24 hr 11/11/17 09:50: Troponin I < 0.02 11/11/17 12:22: POC Glucose 98 11/11/17 16:53: POC Glucose 113 H 11/11/17 20:38: POC Glucose 84 11/12/17 06:03: POC Glucose 108 11/12/17 06:16: WBC 8.2, RBC 2.75 L, Hgb 8.6 L, Hct 26.7 L, MCV 97.2 H, MCH 31.2, MCHC 32.1, RDW 14.4, Plt Count 273, MPV 8.8, Neut % (Auto) 74.7, Lymph % (Auto) 14.2, [place] % (Auto) 5.6, Eos % (Auto) 5.0, Baso % (Auto) 0.5, Neut # (Auto) 6.1, Lymph # (Auto) 1.2, [place] # (Auto) 0.5, Eos # (Auto) 0.4, Baso # (Auto) 0.0 11/12/17 06:16: Sodium 140, Potassium 3.8, Chloride 107, Carbon Dioxide 27, Anion Gap 9.8, BUN 5 L D, Creatinine 1.01 D, Estimated Creat Clear 112, Estimated GFR 76, Est GFR ( Amer) 92 D, Glucose 99, Calcium 8.1 L I & O for Last 24 hours: Intake & Output 11/09/17 11/10/17 11/11/17 11/12/17 11:59 11:59 11:59 11:59 Intake Total 1999 / 1999 3103 / 3103 Output Total 1100 / 1100 3500 / 3500 Balance 900 / 900 -397 / -397 Weight 220 lb 0.341 oz 218 lb 4.122 oz - Constitutional Comments: Resting. - *Routine Abdominal Exam Present: soft. Absent: tenderness Progress Note: A&P (1) Elevated erythrocyte sedimentation rate Status: Acute Current Visit: Yes (2) Abdominal pain Status: Acute Current Visit: Yes (3) Anemia Status: Acute Current Visit: Yes (4) Obesity Status: Acute Current Visit: Yes Assessment and Plan for All Diagnoses:: Advance diet.
--- NOTE | 2017-11-12 09:40 | Discharge Summary ---
General - General Admission date:: 11/10/17 Discharge date: 11/12/17 HPI HPI: pt with abd pain and low bp at [facility] and no vomiting and had an episode of diarrhea -pt with no fever - pt c/o of intermittant lower abd pain on left - pt was seen in the ed with inc wbc, sed rate and lactic acid - pt was admitted for ivf and given abx at this time Hospital Course Hospital Course: ct abd pelvis:IMPRESSION: 1. 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 2. No evidence of bowel wall thickening that would indicate underlying acute inflammatory changes or ischemic changes of the small or large bowel. 3. Coronary artery disease surgery consult- see note chest x ray:IMPRESSION: Cardiomegaly, no change with no acute finding We will transfer back to [facility] continue soft bland diet. Remove Stephens cath Objective Vital signs: Temp Pulse Resp BP Pulse Ox 97.7 F 78 22 112/60 98 11/12/17 07:55 11/12/17 07:55 11/12/17 07:55 11/12/17 07:55 11/12/17 07:55 - *Routine HEENT Exam Head: Present: normocephalic Eye: Present: EOMI ENT: Present: mucous membranes moist - *Routine Neck Exam Present: full ROM - *Routine Respiratory Exam Present: CTA bilaterally - *Routine Cardiovascular Exam Present: RRR - *Routine Abdominal Exam Present: soft, normoactive bowel sounds. Absent: tenderness, distended, rebound, guarding - *Routine Exam Comments: Stephens cath in place - *Routine Extremities Exam Present: full ROM - Routine Back/Spine/Pelvis Exam Back/Spine: Present: full ROM - *Routine Skin Exam Present: intact - *Routine Neurological Exam Present: alert, oriented X3 - Routine Psychiatric Exam Present: normal affect Results Labs on day of discharge: Labs from last 24 hours 11/12/17 11/12/17 11/12/17 06:16 06:16 06:16 WBC 8.2 RBC 2.75 L Hgb 8.6 L Hct 26.7 L MCV 97.2 H MCH 31.2 MCHC 32.1 RDW 14.4 Plt Count 273 MPV 8.8 Neut % (Auto) 74.7 Lymph % (Auto) 14.2 [place] % (Auto) 5.6 Eos % (Auto) 5.0 Baso % (Auto) 0.5 Neut # (Auto) 6.1 Lymph # (Auto) 1.2 [place] # (Auto) 0.5 Eos # (Auto) 0.4 Baso # (Auto) 0.0 Sodium 140 Potassium 3.8 Chloride 107 Carbon Dioxide 27 Anion Gap 9.8 BUN 5 L D Creatinine 1.01 D Estimated Creat Clear 112 Estimated GFR 76 Est GFR ( Amer) 92 D Glucose 99 POC Glucose Calcium 8.1 L Troponin I Lipase 227 11/12/17 11/11/17 11/11/17 06:03 20:38 16:53 WBC RBC Hgb Hct MCV MCH MCHC RDW Plt Count MPV Neut % (Auto) Lymph % (Auto) [place] % (Auto) Eos % (Auto) Baso % (Auto) Neut # (Auto) Lymph # (Auto) [place] # (Auto) Eos # (Auto) Baso # (Auto) Sodium Potassium Chloride Carbon Dioxide Anion Gap BUN Creatinine Estimated Creat Clear Estimated GFR Est GFR ( Amer) Glucose POC Glucose 108 84 113 H Calcium Troponin I Lipase 11/11/17 11/11/17 12:22 09:50 WBC RBC Hgb Hct MCV MCH MCHC RDW Plt Count MPV Neut % (Auto) Lymph % (Auto) [place] % (Auto) Eos % (Auto) Baso % (Auto) Neut # (Auto) Lymph # (Auto) [place] # (Auto) Eos # (Auto) Baso # (Auto) Sodium Potassium Chloride Carbon Dioxide Anion Gap BUN Creatinine Estimated Creat Clear Estimated GFR Est GFR ( Amer) Glucose POC Glucose 98 Calcium Troponin I < 0.02 Lipase - Additional Comments Dr. Travis rounded earlier all orders per Dr. Travis. DS: Diagnosis - Discharge Diagnosis (1) Elevated erythrocyte sedimentation rate Status: Acute (2) Abdominal pain Status: Acute (3) Anemia Status: Acute (4) Obesity Status: Acute Discharge Plan - Patient Discharge Instructions ACTIVITY: Continue current activity DIET: continue same diet - Follow up Plan Follow up with: Nahum Arellano APRN [Advanced Practice Nurse] - Disposition: Xfer [facility] Home Medications: Home Medications Medication Instructions Recorded Confirmed Type aripiprazole 15 mg tablet 15 mg PO HS 03/24/17 11/10/17 History aspirin 81 mg tablet,delayed 81 mg PO DAILY 03/24/17 11/11/17 History release atorvastatin 40 mg tablet 40 mg PO HS 03/24/17 11/10/17 History bupropion HCl SR 200 mg tablet,12 150 mg PO BID 03/24/17 11/10/17 History hr sustained-release docusate sodium 250 mg capsule 250 mg PO DAILY 03/24/17 11/11/17 History furosemide 80 mg tablet 80 mg PO BID tab 03/24/17 11/10/17 History loratadine 10 mg tablet 10 mg PO DAILY 03/24/17 11/10/17 History losartan 25 mg tablet 25 mg PO DAILY 03/24/17 11/10/17 History metformin 1,000 mg tablet 1,000 mg PO BID 03/24/17 11/10/17 History isosorbide mononitrate ER 30 mg 30 mg PO DAILY 04/11/17 11/10/17 History tablet,extended release 24 hr folic acid 0.8 mg capsule 0.8 mg PO DAILY 09/30/17 11/10/17 History loperamide 2 mg capsule 2 mg PO Q4HP PRN 09/30/17 11/11/17 History magnesium oxide 400 mg capsule 400 mg PO HS cap 09/30/17 11/11/17 History spironolactone 50 mg tablet 50 mg PO BID tab 09/30/17 11/10/17 History Acetaminophen 500 mg PO Q4HP PRN 11/10/17 11/10/17 History Linagliptin [Tradjenta 5mg tablet] 5 mg PO DAILY 11/10/17 11/10/17 History Omeprazole [Omeprazole 20mg 20 mg PO Q48H 11/10/17 11/11/17 History Capsule] Cyanocobalamin (Vitamin B-12) 750 mcg PO DAILY 11/11/17 11/11/17 History [Vitamin B-12] Levothyroxine Sodium 50 mcg PO DAILY 11/11/17 11/11/17 History [Levothyroxine 50mcg (0.05mg) Tab] Olopatadine HCl [Patanol] 1 drop OP BID 11/11/17 11/11/17 History Potassium Chloride [Klor-con 20 40 meq PO BID 11/11/17 11/11/17 History mEq tablet] Tamsulosin HCl [Flomax 0.4mg 0.4 mg PO DAILY 11/11/17 11/11/17 History capsule] Trazodone HCl 100 mg PO HS 11/11/17 11/11/17 History Prescriptions/Medication Reconciliation: Continue aripiprazole 15 mg tablet 15 mg PO HS aspirin 81 mg tablet,delayed release 81 mg PO DAILY losartan 25 mg tablet 25 mg PO DAILY docusate sodium 250 mg capsule 250 mg PO DAILY metformin 1,000 mg tablet 1,000 mg PO BID furosemide 80 mg tablet 80 mg PO BID tab atorvastatin 40 mg tablet 40 mg PO HS bupropion HCl SR 200 mg tablet,12 hr sustained-release 150 mg PO BID spironolactone 50 mg tablet 50 mg PO BID tab loperamide 2 mg capsule 2 mg PO Q4HP PRN PRN Reason: Diarrhea magnesium oxide 400 mg capsule 400 mg PO HS cap loratadine 10 mg tablet 10 mg PO DAILY isosorbide mononitrate ER 30 mg tablet,extended release 24 hr 30 mg PO DAILY folic acid 0.8 mg capsule 0.8 mg PO DAILY Acetaminophen 500 mg PO Q4HP PRN PRN Reason: PAIN/FEVER Linagliptin [Tradjenta 5mg tablet] 5 mg PO DAILY Trazodone HCl 100 mg PO HS Olopatadine HCl [Patanol] 1 drop OP BID Levothyroxine Sodium [Levothyroxine 50mcg (0.05mg) Tab] 50 mcg PO DAILY Cyanocobalamin (Vitamin B-12) [Vitamin B-12] 750 mcg PO DAILY Omeprazole [Omeprazole 20mg Capsule] 20 mg PO Q48H Tamsulosin HCl [Flomax 0.4mg capsule] 0.4 mg PO DAILY Potassium Chloride [Klor-con 20 mEq tablet] 40 meq PO BID
== END 2017-11-12 14:00 ==
LOC: ER 19:42 → 2ND 19:42
PROVIDERS: ADMIT Emergency Medicine; ATTEND Emergency Medicine
CPT/HCPCS: 36415; 71010; 71045; 74176; 74177; 80048; 80053; 81001; 82150; 82272; 82962; 83605; 83690; 84484; 85025; 85651; 86140; 96365; 96366; 96375; 99285; G0328; G0378; J2405; Q9967

== ENCOUNTER → 2018-05-18 10:46 | Outpatient (CLI) | payer MEDICARE, MEDICAID, SELFPAY ==
[2018-05-18 10:48] LABS: Adenovirus F 40/41, stool Not Detected (NotDetected); Astrovirus Not Detected (NotDetected); Campylobacter Not Detected (NotDetected); Clostridium Difficile A/B, PCR Not Detected (NotDetected); Cryptosporidium Not Detected (NotDetected); Cyclospora Cayetanesis Not Detected (NotDetected); Entamoeba histolytica Not Detected (NotDetected); Enteroaggregative E coli Not Detected (NotDetected); Enteropathogenic E coli Not Detected (NotDetected); Enterotoxigenic E coli Not Detected (NotDetected); Giardia lamblia Not Detected (NotDetected); Norovirus Not Detected (NotDetected); Plesimonas Shigalloides, PCR Not Detected (NotDetected); Rotavirus A Not Detected (NotDetected); Salmonella, PCR Not Detected (NotDetected); Sapovirus Not Detected (NotDetected); Shiga-like toxin E coli Not Detected (NotDetected); Shigella Enterovasive E coli Not Detected (NotDetected); Vibrio Cholerae Not Detected (NotDetected); Vibrio, PCR Not Detected (NotDetected); Yersinia Entercolitica, PCR Not Detected (NotDetected)
== END ==
PROVIDERS: Visit Provider Emergency Medicine
DX: R19.7 Diarrhea, unspecified (principal)
CPT/HCPCS: 87506; 87507

== ENCOUNTER 2018-11-17 16:47 | Observation (INO) ==
[2018-11-17 17:36] LABS: Basophils # 0.1 K/mm3 (0-0.2); Basophils % 0.6 % (0.1-2.0); Eosinophils # 0.2 K/mm3 (0.0-0.4); Eosinophils % 1.7 % (0.1-12.0); Hematocrit 35.6 % (42.0-52.0); Hemoglobin 10.8 g/dL (14.1-18.0); Lymphocytes # 2.3 K/mm3 (0.7-4.5); Lymphocytes % 16.4 % (10-50); Mean Corpuscular HGB Conc 30.3 g/dL (31.8-35.4); Mean Corpuscular Volume 102.4 fl (80-94); Mean Platelet Volume 7.7 fl (7.4-10.4); Monocytes # 0.9 K/mm3 (0.1-1.0); Monocytes % 6.9 % (1.7-9.3); Neutrophils # 10.1 K/mm3 (1.8-7.8); Neutrophils % 74.4 % (37.0-80.0); Platelet Count 419 K/mm3 (142-424); Red Blood Count 3.48 M/mm3 (4.60-6.20); Red Cell Distribution Width 14.5 % (11.5-17.5); White Blood Count 13.6 K/mm3 (4.8-10.8)
[2018-11-17 17:46] LABS: Alanine Aminotransferase 18 U/L (12-78); Albumin Level 3.5 gm/dL (3.4-5.0); Albumin/Globulin Ratio 0.7 (1.1-1.8); Alkaline Phosphatase 79 U/L (46-116); Amylase 87 U/L (25-115); Anion Gap 12.7 mEq/L (5-15); Aspartate Amino Transferase 13 U/L (15-37); Bilirubin,Total 0.3 mg/dL (0.2-1.0); Blood Urea Nitrogen 24 mg/dL (7-18); Calcium 9.5 mg/dL (8.5-10.1); Carbon Dioxide 30 mmol/L (21.0-32.0); Chloride 96 mmol/L (98-107); Globulin 5.1 gm/dl (1.3-3.2); Glucose 128 mg/dL (74-106); Sodium 134 mmol/L (136-145); Total Protein,Serum 8.6 gm/dL (6.4-8.2)
--- NOTE | 2018-11-17 17:57 | Emergency Department Note ---
ED Disposition Clinical Impression: Chest pain, precordial Disposition: Admitted as Observation Condition on Discharge: Good Referrals: Provider,Referral, [Primary Care Provider] - - Critical Care Critical Care Time: No Attestation: On 11/17/18, the high probability of a clinically significant, sudden or life threatening deterioration of the following system(s) required my full and direct attention, intervention and personal management. The time I documented below is in addition to time spent performing reported procedures but includes the following listed in this critical care notation. Medical Decision Making - Gaudencio Inquiry Pt receiving controlled substance: No Vital Signs: 11/17/18 16:48 11/17/18 17:17 11/17/18 18:09 Temperature 98.1 F Temperature Source Oral Pulse Rate [Left Radial] 100 H 100 H 101 H Respiratory Rate 22 Blood Pressure [Right Arm] 119/72 119/74 110/68 Blood Pressure Mean [Right Arm] 87 89 82 Blood Pressure Source [Right Arm] Automatic Cuff Automatic Cuff Blood Pressure Position [Right Arm] Sitting Sitting Sitting 02 Sat by Pulse Oximetry 94 L 96 97 Oxygen Delivery Method Nasal Cannula Room Air Oxygen Flow Rate (LPM) 2 - Lab Data Lab Results 11/17/18 17:21: WBC 13.6 H, RBC 3.48 L, Hgb 10.8 L, Hct 35.6 L, MCV 102.4 H, MCH 31.0, MCHC 30.3 L, RDW 14.5, Plt Count 419, MPV 7.7, Neut % (Auto) 74.4, Lymph % (Auto) 16.4, [place] % (Auto) 6.9, Eos % (Auto) 1.7, Baso % (Auto) 0.6, Neut # (Auto) 10.1 H, Lymph # (Auto) 2.3, [place] # (Auto) 0.9, Eos # (Auto) 0.2, Baso # (Auto) 0.1 11/17/18 17:21: Sodium 134 L, Potassium 4.7, Chloride 96 L, Carbon Dioxide 30, Anion Gap 12.7, BUN 24 H, Creatinine 1.42 H, Estimated Creat Clear 65, Estimated GFR 51 L, Est GFR ( Amer) 62, Glucose 128 H, Calcium 9.5, Total Bilirubin 0.3, AST 13 L, ALT 18, Alkaline Phosphatase 79, Troponin I < 0.02, Total Protein 8.6 H, Albumin 3.5, Globulin 5.1 H, Albumin/Globulin Ratio 0.7 L, Amylase 87, Lipase 345 Result diagrams: 11/17/18 17:21 11/17/18 17:21 Orders (Tests/Meds): ORDERS Category Date Time Status XR chest portable Stat Exams 11/17/18 16:59 Taken - Radiology Data #1 Image(s): Chest Image Reviewed: Yes I reviewed the patient's radiology image Cardiomegaly, elevated right diaphragm. No acute process. No change from prior. - ECG Data Tracing #1 EKG interpreted by Wes Meza MD: Rhythm: sinus Rate: 100 [place]: normal Ectopy: none Conduction: normal ST Segment Changes: none T Wave Changes: Nonspecific Q Waves: none No evidence of acute ischemia or injury Baseline artifact present, but I consider the EKG adequate for accurate interpretation. Prior electrocardiagrams reviewed. No change from prior tracings. - Physician Consults Physician Consulted: Dave Travis Time: 18:28 Reason -: Admission Comment/Response: Agrees to admit the patient to the hospital. We discussed the patient's clinical information, including history, exam, laboratory and radiology results and ED course. Per hospital procedure, I will write temporary bridge inpatient orders on the patient. Specific orders requested by the admitting physician: Serial cardiac enzymes General Adult HPI - General Chief complaint: PAIN Stated complaint: chest pain Time Seen by Provider: 11/17/18 17:55 Mode of Arrival: EMS Limitations: Physical Limitations Description of Symptoms (Recalled from ER Triage Doc. by RN): c/o chest pain after eating, Pt points to the upper gastric area for his area of pain - Related Data Home Medications Medication Instructions Recorded Confirmed aspirin 81 mg tablet,delayed 81 mg PO DAILY 03/24/17 10/13/18 release atorvastatin 40 mg tablet 40 mg PO HS 03/24/17 10/13/18 docusate sodium 250 mg capsule 250 mg PO DAILY 03/24/17 10/13/18 furosemide 80 mg tablet 80 mg PO BID tab 03/24/17 10/13/18 loratadine 10 mg tablet 10 mg PO DAILY 03/24/17 10/13/18 isosorbide mononitrate ER 30 mg 30 mg PO DAILY 04/11/17 10/13/18 tablet,extended release 24 hr folic acid 0.8 mg capsule 0.8 mg PO DAILY 09/30/17 10/13/18 loperamide 2 mg capsule 2 mg PO Q4HP PRN 09/30/17 10/13/18 magnesium 400 mg (as magnesium 400 mg PO HS cap 09/30/17 10/13/18 oxide) capsule spironolactone 50 mg tablet 50 mg PO BID tab 09/30/17 10/13/18 Acetaminophen 500 mg PO Q4HP PRN 11/10/17 10/13/18 Omeprazole [Omeprazole 20mg 20 mg PO Q48H 11/10/17 10/13/18 Capsule] Cyanocobalamin (Vitamin B-12) 750 mcg PO DAILY 11/11/17 10/13/18 [Vitamin B-12] Levothyroxine Sodium 50 mcg PO DAILY 11/11/17 10/13/18 [Levothyroxine 50mcg (0.05mg) Tab] Olopatadine HCl [Patanol] 1 drp OP BID 11/11/17 10/13/18 Potassium Chloride [Klor-con 20 40 meq PO BID 11/11/17 10/13/18 mEq tablet] Tamsulosin HCl [Flomax 0.4mg 0.4 mg PO DAILY 11/11/17 10/13/18 capsule] Trazodone HCl 100 mg PO HS 11/11/17 10/13/18 linagliptin 5 mg tablet 5 mg PO DAILY 03/31/18 10/13/18 metformin 1,000 mg tablet 500 mg PO BID tab 03/31/18 10/13/18 tramadol 50 mg tablet 50 mg PO BID tab 03/31/18 10/13/18 aripiprazole 5 mg tablet 15 mg PO DAILY tab 09/29/18 10/13/18 duloxetine 30 mg capsule,delayed 90 mg PO DAILY cap 09/29/18 10/13/18 release losartan 25 mg tablet 12.5 mg PO DAILY tab 09/29/18 10/13/18 Allergies Allergy/AdvReac Type Severity Reaction Status Date / Time morphine [MORPHINE] Allergy Mild "HURTS Verified 11/04/18 03:38 STOMACH" [facility] History - Hepatitis A Screen Drug use history?: No High risk sexual behaviors?: No History of sexually transmitted infection?: No Currently employed?: No Childcare worker?: No Do you have indoor plumbing?: Yes Do you have electricity?: Yes Attestation statement:: This patient has been screened for Hepatitis A risk factors. Medical History: Reports:: Anxiety, Asthma, Atherosclerotic Heart Disease, Congestive Heart Failure, Coronary Artery Disease, Depression, Diabetes Mellitus Type 2, Gastroesophageal Reflux Disease(GERD), Home Oxygen, Hyperlipidemia, Hyp ertension, Lung Disease, Osteoporosis Denies:: Cancer, Diabetes Mellitus Type 1, Internal Pacemaker, Seizures Other Medical History: Reports: Anemia, Hypothyroidism, Osteoporosis, Thyroid Disease, Other Comment: subdural hematoma Laterality Cases: Bilateral: Carpal Tunnel Release Other Surgeries: Yes: No Previous Surgery, Coronary Stent, EGD, Hernia Repair, Other. No: Pacemaker Amputation: No Fractures: No Comment: impingement syndrome rt shoulder,cts,osteoarthritis,pica,schizoaffective dz,cad, - Social History Smoking Status: Former smoker Tobacco Type: cigarettes Alcohol Intake: never Alcohol Intake Frequency:: other Substance Use Type: marijuana Occupational Status: disabled Housing: assisted Household Members: other - Psychiatric History Pschychiatric History:: Reports:: Anxiety, Depression Family Hx:: Hyperlipidemia, Diabetes, Heart Attack, Kidney Disease Comment: lung disease, ROS Obtained: Yes All systems reviewed & no additional complaints - Constitutional Constitutional: Denies fever(s) - Cardiovascular Cardiovascular: Reports chest pain, Reports diaphoresis, Reports radiating jaw, neck or arm pain - Respiratory Respiratory: Yes dyspnea - Gastrointestinal Gastrointestingal: Reports: nausea. Denies: abdominal pain, diarrhea, vomiting Physical Exam - General General appearance: alert, in no apparent distress - Head Head exam: atraumatic, normocephalic - Eye Eye exam: Present: normal appearance, EOMI - ENT ENT exam: Present: mucous membranes moist - Neck Neck exam: Present: normal inspection, trachea midline - Chest Chest inspection: Present: normal inspection, symmetric chest wall rise. Absent: tenderness - Respiratory Respiratory exam: Present: normal lung sounds bilaterally. Absent: respiratory distress - Cardiovascular Cardiovascular exam: Present: regular rate, normal rhythm, normal heart sounds - Abdominal Exam Abdominal exam: Present: soft, normal bowel sounds. Absent: distention, tenderness, guarding - Extremities Exam Extremities exam: Present: normal inspection - Neurological Exam Neurological exam: Present: alert - Psychiatric Psychiatric exam: Present: flat affect - Skin Skin exam: Present: warm, dry
--- NOTE | 2018-11-17 21:11 | History & Physical Report ---
*Admission Date: 11/17/18 *Chief complaint: chest pain *History of present illness: this wm presented to ed with chest pain pt from [facility] -chest pain after eating, Pt points to the upper gastric area for his area of pain- pt is difficult historian and was admitted for card eval and serial enz [facility] History I have reviewed the patient's past medical history: Yes Medical History: Reports:: Anxiety, Asthma, Atherosclerotic Heart Disease, Congestive Heart Failure, Coronary Artery Disease, Depression, Diabetes Mellitus Type 2, Gastroesophageal Reflux Disease(GERD), Home Oxygen, Hyperlipidemia, Hypertension, Lung Disease, Osteoporosis Denies:: Cancer, Diabetes Mellitus Type 1, Internal Pacemaker, Seizures *Have you ever received a pneumonia vaccine?: No *Have you received a flu vaccine this season?: No Other Medical History: Reports: Anemia, Hypothyroidism, Osteoporosis, Thyroid Disease, Other Laterality Cases: Bilateral: Carpal Tunnel Release Other Surgeries: Yes: No Previous Surgery, Coronary Stent, EGD, Hernia Repair, Other. No: Pacemaker Amputation: No Fractures: No - *Social History Smoking Status: Former smoker Tobacco Type: cigarettes Alcohol Intake: never Alcohol Intake Frequency:: other Substance Use Type: marijuana *Occupational Status:: disabled Housing: prison Household Members: other *Travel in the last 8 weeks: None - Psychiatric History Pschychiatric History:: Reports:: Anxiety, Depression Family Hx:: Hyperlipidemia, Diabetes, Heart Attack, Kidney Disease Review of Systems - Review of Systems Review of systems:: pertinent systems reviewed and negative unless documented below - Constitutional Denies fever(s) - Eyes Denies change in vision - ENT Denies sore throat - *Cardiovascular Reports chest pain at rest, Reports shortness of breath - *Respiratory Denies cough - *Gastrointestinal Denies abdominal pain - *Genitourinary Denies blood in urine - *Musculoskeletal Denies joint swelling - Integumentary/Breasts Denies rash - *Neurologic Denies seizure-like activity - Psychiatric Denies confusion Meds Home Medications Medication Instructions Recorded Confirmed Type aspirin 81 mg tablet,delayed 81 mg PO DAILY 03/24/17 11/17/18 History release atorvastatin 40 mg tablet 40 mg PO HS 03/24/17 11/17/18 History docusate sodium 250 mg capsule 250 mg PO DAILYP PRN 03/24/17 11/17/18 History furosemide 80 mg tablet 80 mg PO BID tab 03/24/17 11/17/18 History loratadine 10 mg tablet 10 mg PO DAILY 03/24/17 11/17/18 History isosorbide mononitrate ER 30 mg 30 mg PO DAILY 04/11/17 11/17/18 History tablet,extended release 24 hr folic acid 0.8 mg capsule 0.8 mg PO DAILY 09/30/17 11/17/18 History magnesium 400 mg (as magnesium 400 mg PO HS cap 09/30/17 11/17/18 History oxide) capsule spironolactone 50 mg tablet 50 mg PO BID tab 09/30/17 11/17/18 History Acetaminophen 500 mg PO Q4HP PRN 11/10/17 11/17/18 History Omeprazole [Omeprazole 20mg 20 mg PO Q48H 11/10/17 11/17/18 History Capsule] Cyanocobalamin (Vitamin B-12) 750 mcg PO DAILY 11/11/17 11/17/18 History [Vitamin B-12] Levothyroxine Sodium 50 mcg PO DAILY 11/11/17 11/17/18 History [Levothyroxine 50mcg (0.05mg) Tab] Potassium Chloride [Klor-con 20 40 meq PO BID 11/11/17 11/17/18 History mEq tablet] Tamsulosin HCl [Flomax 0.4mg 0.4 mg PO DAILY 11/11/17 11/17/18 History capsule] Trazodone HCl 100 mg PO HS 11/11/17 11/17/18 History tramadol 50 mg tablet 50 mg PO BID tab 03/31/18 11/17/18 History losartan 25 mg tablet 12.5 mg PO DAILY tab 09/29/18 11/17/18 History Bisacodyl [Bisacodyl 10mg Supp] 10 mg RC DAILYP PRN 11/17/18 11/17/18 History Lactulose [Lactulose 10gm/15ml 20 gm PO DAILYP PRN 11/17/18 11/18/18 History Oral Soln] Linagliptin [Tradjenta 5mg tablet] 5 mg PO DAILY 11/17/18 11/17/18 History Mag Carb/Aluminum Hydrox/Algin 30 ml PO Q4HP PRN 11/17/18 11/18/18 History [Acid Gone Antacid Liquid] Multivitamin,Ther and Minerals 1 each PO DAILY 11/17/18 11/17/18 History [Vitamin and Minerals] ARIPiprazole [Aripiprazole 15mg 15 mg PO HS 11/18/18 11/18/18 History Tablet] Duloxetine HCl 120 mg PO DAILY 11/18/18 11/18/18 History Metformin HCl 500 mg PO BID 11/18/18 11/18/18 History Allergies Allergy/AdvReac Type Severity Reaction Status Date / Time morphine [MORPHINE] Allergy Mild "HURTS Verified 11/04/18 03:38 STOMACH" Exam Vital signs and Labs for Last 24 Hours: Temp Pulse Resp BP Pulse Ox 98.6 F 93 H 20 127/97 H 94 L 11/17/18 20:02 11/17/18 20:02 11/17/18 20:02 11/17/18 20:02 11/17/18 20:02 Laboratory Results - last 24 hr 11/17/18 17:21: WBC 13.6 H, RBC 3.48 L, Hgb 10.8 L, Hct 35.6 L, MCV 102.4 H, MCH 31.0, MCHC 30.3 L, RDW 14.5, Plt Count 419, MPV 7.7, Neut % (Auto) 74.4, Lymph % (Auto) 16.4, [place] % (Auto) 6.9, Eos % (Auto) 1.7, Baso % (Auto) 0.6, Neut # (Auto) 10.1 H, Lymph # (Auto) 2.3, [place] # (Auto) 0.9, Eos # (Auto) 0.2, Baso # (Auto) 0.1 11/17/18 17:21: Sodium 134 L, Potassium 4.7, Chloride 96 L, Carbon Dioxide 30, Anion Gap 12.7, BUN 24 H, Creatinine 1.42 H, Estimated Creat Clear 65, Estimated GFR 51 L, Est GFR ( Amer) 62, Glucose 128 H, Calcium 9.5, Total Bilirubin 0.3, AST 13 L, ALT 18, Alkaline Phosphatase 79, Troponin I < 0.02, Total Protein 8.6 H, Albumin 3.5, Globulin 5.1 H, Albumin/Globulin Ratio 0.7 L, Amylase 87, Lipase 345 I & O for Last 24 hours: Intake & Output 09/11/16/18 11/17/18 11/18/18 11:59 11:59 11:59 11:59 Intake Total 120 / 120 Balance 120 / 120 Weight 200 lb 2 oz - Constitutional no acute distress, obese - *Routine HEENT Exam Head: Present: normocephalic Eye: Present: EOMI, PERRL ENT: Present: mucous membranes dry - *Routine Neck Exam Absent: JVD - *Routine Respiratory Exam Present: decreased breath sounds - *Routine Cardiovascular Exam Present: RRR, murmur, S4 - *Routine Abdominal Exam Present: soft - *Routine Extremities Exam Absent: calf tenderness - *Routine Skin Exam Present: intact - *Routine Neurological Exam Present: alert, CN II-XII intact - Routine Psychiatric Exam Present: unable to assess Assessment and Plan (1) Obesity (BMI 30-39.9) Current visit: Yes Status: Acute Category: Medical Code(s): E66.9 - Obesity, unspecified (2) Chest pain, precordial Current visit: Yes Status: Acute Category: Medical Code(s): R07.2 - Precordial pain (3) Anemia Current visit: Yes Status: Acute Qualifiers: Anemia type: unspecified type Qualified Code(s): D64.9 - Anemia, unspecified Category: Medical Code(s): D64.9 - Anemia, unspecified (4) Renal insufficiency Current visit: Yes Status: Acute Category: Medical Code(s): N28.9 - Disorder of kidney and ureter, unspecified (5) HTN (hypertension) Current visit: Yes Status: Acute Qualifiers: Hypertension type: essential hypertension Qualified Code(s): I10 - Essential (primary) hypertension Category: Medical Code(s): I10 - Essential (primary) hypertension (6) Diabetes 1.5, managed as type 2 Current visit: Yes Status: Acute Category: Medical Code(s): E13.9 - Other specified diabetes mellitus without complications
--- NOTE | 2018-11-18 07:33 | Pharmacy Consult Notes ---
[facility] Pharmacy VTE Monitoring - Patient Demographics Admission date: 11/18/18 Report Date: 11/18/18 Time: 07:33 Allergies/Adverse Reactions: Patient Allergies morphine [MORPHINE] Allergy (Mild, Verified 11/04/18 03:38) "HURTS STOMACH" Height: 1.57 m Weight: 89.868 kg Patient Problems: Current Active Problems Chest pain, precordial (Acute) - VTE Risk Labs: VTE Related Lab Results Hgb 10.8 g/dL (14.1-18.0) L 11/17/18 17:21 Hct 35.6 % (42.0-52.0) L 11/17/18 17:21 Plt Count 419 K/mm3 (142-424) 11/17/18 17:21 BUN 24 mg/dL (7-18) H 11/17/18 17:21 Creatinine 1.42 mg/dL (0.70-1.30) H 11/17/18 17:21 Estimated Creat Clear 65 mL/min (50-200) 11/17/18 17:21 Was VTE Risk Assessment Performed: Yes VTE Score: 7 VTE Risk Level: Moderate Risk Clinical Trial Participant: No - Prophylaxis VTE Prophylaxis Ordered?: Yes Types of VTE Prophylaxis: TEDS Knee High
--- NOTE | 2018-11-18 08:59 | Consult Report ---
History of Present Illness Consult date: 11/18/18 Requesting physician: Roney Travis Consult reason: chest pain Chief complaint: Chest pain Additional Medical History:: 1. Coronary artery disease status post stenting 2. Hypertension 3. Hyperlipidemia 4. Congestive heart failure 5. Diabetes 6. Chronic lung disease History of present illness: This is a 57-year-old gentleman who presented to the emergency department with complaints of chest pain. He states that this started suddenly at rest after eating. The patient states that the pain was in the center of his chest. He reports that it radiates to his right arm. It is associated with shortness of breath, diaphoresis and nausea. He denies any vomiting. He states that the pain is a 10 out of 10 pain. It occurs at rest because the patient is not am bulatory. Nothing worsens or improves the pain. He states the pain has been constant since yesterday. He denies any fever, chills, vomiting, diarrhea, PND or orthopnea. He denies any edema. The patient has ruled out for an OH. This morning he reports that he is still having the chest pain. He states that his chest pain has somewhat improved since yesterday but is still present as described above except for the pain is now moderate instead of severe. [facility] History I have reviewed the patient's past medical history: Yes Medical History: Reports:: Anxiety, Asthma, Atherosclerotic Heart Disease, Congestive Heart Failure, Coronary Artery Disease, Depression, Diabetes Mellitus Type 2, Gastroesophageal Reflux Disease(GERD), Home Oxygen, Hyperlipidemia, Hypertension, Lung Disease, Osteoporosis Denies:: Cancer, Diabetes Mellitus Type 1, Internal Pacemaker, Seizures *Have you ever received a pneumonia vaccine?: Yes *Have you received a flu vaccine this season?: Yes Other Medical History: Reports: Anemia, Hypothyroidism, Osteoporosis, Thyroid Disease, Other Laterality Cases: Bilateral: Carpal Tunnel Release Other Surgeries: Yes: No Previous Surgery, Coronary Stent, EGD, Hernia Repair, Other. No: Pacemaker Amputation: No Fractures: No - *Social History Educational Level: Completed High School Smoking Status: Former smoker Tobacco Type: cigarettes Alcohol Intake: former Alcohol Intake Frequency:: holidays/special occasions only Substance Use Type: marijuana *Occupational Status:: disabled Housing: halfway Household Members: other *Travel in the last 8 weeks: None - Psychiatric History Pschychiatric History:: Reports:: Anxiety, Depression Family Hx:: Unable to obtain Meds Home Medications Medication Instructions Recorded Confirmed Type aspirin 81 mg tablet,delayed 81 mg PO DAILY 03/24/17 11/17/18 History release atorvastatin 40 mg tablet 40 mg PO HS 03/24/17 11/17/18 History docusate sodium 250 mg capsule 250 mg PO DAILYP PRN 03/24/17 11/17/18 History furosemide 80 mg tablet 80 mg PO BID tab 03/24/17 11/17/18 History loratadine 10 mg tablet 10 mg PO DAILY 03/24/17 11/17/18 History isosorbide mononitrate ER 30 mg 30 mg PO DAILY 04/11/17 11/17/18 History tablet,extended release 24 hr folic acid 0.8 mg capsule 0.8 mg PO DAILY 09/30/17 11/17/18 History loperamide 2 mg capsule 2 mg PO Q4HP PRN 09/30/17 11/17/18 History magnesium 400 mg (as magnesium 400 mg PO HS cap 09/30/17 11/17/18 History oxide) capsule spironolactone 50 mg tablet 50 mg PO BID tab 09/30/17 11/17/18 History Acetaminophen 500 mg PO Q4HP PRN 11/10/17 11/17/18 History Omeprazole [Omeprazole 20mg 20 mg PO Q48H 11/10/17 11/17/18 History Capsule] Cyanocobalamin (Vitamin B-12) 750 mcg PO DAILY 11/11/17 11/17/18 History [Vitamin B-12] Levothyroxine Sodium 50 mcg PO DAILY 11/11/17 11/17/18 History [Levothyroxine 50mcg (0.05mg) Tab] Olopatadine HCl [Patanol] 1 drp OP BID 11/11/17 11/17/18 History Potassium Chloride [Klor-con 20 40 meq PO BID 11/11/17 11/17/18 History mEq tablet] Tamsulosin HCl [Flomax 0.4mg 0.4 mg PO DAILY 11/11/17 11/17/18 History capsule] Trazodone HCl 100 mg PO HS 11/11/17 11/17/18 History metformin 1,000 mg tablet 500 mg PO BID tab 03/31/18 11/17/18 History tramadol 50 mg tablet 50 mg PO BID tab 03/31/18 11/17/18 History aripiprazole 5 mg tablet 15 mg PO HS tab 09/29/18 11/17/18 History duloxetine 30 mg capsule,delayed 60 mg PO DAILY cap 09/29/18 11/17/18 History release losartan 25 mg tablet 12.5 mg PO DAILY tab 09/29/18 11/17/18 History Bisacodyl [Bisacodyl 10mg Supp] 10 mg RC DAILYP PRN 11/17/18 11/17/18 History Lactulose [Lactulose 10gm/15ml 10 gm PO DAILYP PRN 11/17/18 11/17/18 History Oral Soln] Linagliptin [Tradjenta 5mg tablet] 5 mg PO DAILY 11/17/18 11/17/18 History Mag Carb/Aluminum Hydrox/Algin 355 ml PO DAILY 11/17/18 11/17/18 History [Acid Gone Antacid Liquid] Multivitamin,Ther and Minerals 1 each PO DAILY 11/17/18 11/17/18 History [Vitamin and Minerals] Allergies Allergy/AdvReac Type Severity Reaction Status Date / Time morphine [MORPHINE] Allergy Mild "HURTS Verified 11/04/18 03:38 STOMACH" Review of Systems - Review of Systems Review of systems:: pertinent systems reviewed and negative unless documented below - *Cardiovascular Reports chest pain, Reports chest pain at rest, Reports chest pain with activity, Reports excessive sweating, Reports shortness of breath, Reports shortness of breath with activity - *Respiratory Reports shortness of breath, Reports shortness of breath with activity - *Gastrointestinal Reports nausea Exam Vital signs and Labs for Last 24 Hours: Temp Pulse Resp BP Pulse Ox 98.0 F 88 18 103/67 L 93 L 11/18/18 08:00 11/18/18 08:00 11/18/18 08:00 11/18/18 08:00 11/18/18 08:00 Laboratory Results - last 24 hr 11/17/18 17:21: WBC 13.6 H, RBC 3.48 L, Hgb 10.8 L, Hct 35.6 L, MCV 102.4 H, MCH 31.0, MCHC 30.3 L, RDW 14.5, Plt Count 419, MPV 7.7, Neut % (Auto) 74.4, Lymph % (Auto) 16.4, [place] % (Auto) 6.9, Eos % (Auto) 1.7, Baso % (Auto) 0.6, Neut # (Auto) 10.1 H, Lymph # (Auto) 2.3, [place] # (Auto) 0.9, Eos # (Auto) 0.2, Baso # (Auto) 0.1 11/17/18 17:21: Sodium 134 L, Potassium 4.7, Chloride 96 L, Carbon Dioxide 30, Anion Gap 12.7, BUN 24 H, Creatinine 1.42 H, Estimated Creat Clear 65, Estimated GFR 51 L, Est GFR ( Amer) 62, Glucose 128 H, Calcium 9.5, Total Billy irubin 0.3, AST 13 L, ALT 18, Alkaline Phosphatase 79, Troponin I < 0.02, Total Protein 8.6 H, Albumin 3.5, Globulin 5.1 H, Albumin/Globulin Ratio 0.7 L, Amylase 87, Lipase 345 11/17/18 20:37: POC Glucose 101 11/17/18 22:40: Troponin I < 0.02 11/18/18 01:44: Troponin I < 0.02 11/18/18 06:02: POC Glucose 140 H I & O for Last 24 hours: Intake & Output 11/15/18 11/16/18 11/17/18 11/18/18 23:59 23:59 23:59 23:59 Intake Total 120 / 120 0 / 0 Balance 120 / 120 0 / 0 Weight 200 lb 2 oz 198 lb 2 oz Narrative: His EKG is sinus rhythm with nonspecific T wave abnormalities and a rate of 100. His telemetry strip today is sinus rhythm with a rate of 93. - Constitutional no acute distress, obese, chronically ill appearing - *Routine HEENT Exam Head: Present: normocephalic, atraumatic Eye: Present: EOMI, PERRL ENT: Present: mucous membranes moist - *Routine Neck Exam Present: supple, full ROM, normal carotid upstroke. Absent: JVD, carotid bruit, lymphadenopathy - *Routine Respiratory Exam Present: decreased breath sounds, CTA bilaterally - *Routine Cardiovascular Exam Present: RRR, Normal S1, Normal S2. Absent: murmur, gallop - *Routine Abdominal Exam Present: soft, normoactive bowel sounds. Absent: tenderness, distended - *Routine Extremities Exam Present: full ROM, pulses intact, normal capillary refill. Absent: cyanosis, clubbing, edema - *Routine Skin Exam Present: intact, warm. Absent: erythema, rash - *Routine Neurological Exam Present: alert, oriented X3, CN II-XII intact - Routine Psychiatric Exam Present: normal affect, normal thought process - Detailed Eye Exam Eyelids: Left normal inspection Assessment and Plan (1) Typical angina Current visit: Yes Status: Acute Category: Medical Code(s): I20.9 - Angina pectoris, unspecified (2) Abnormal EKG Current visit: Yes Status: Acute Category: Medical Code(s): R94.31 - Abnormal electrocardiogram [ECG] [EKG] (3) SOB (shortness of breath) Current visit: No Status: Acute Category: Medical Code(s): R06.02 - Shortness of breath (4) HLD (hyperlipidemia) Current visit: No Status: Chronic Qualifiers: Hyperlipidemia type: other hyperlipidemia Category: Medical Code(s): E78.5 - Hyperlipidemia, unspecified (5) HHD (hypertensive heart disease) Current visit: No Status: Chronic Qualifiers: Heart failure presence: unspecified whether heart failure present Qualified Code(s): I11.9 - Hypertensive heart disease without heart failure Category: Medical Code(s): I11.9 - Hypertensive heart disease without heart failure (6) CAD (coronary artery disease) Current visit: No Status: Chronic Qualifiers: Coronary Disease-Associated Artery/Lesion type: unspecified vessel or lesion type [place] vs. transplanted heart: unspecified whether [place] or transplanted heart Associated angina: angina presence unspecified Qualified Code(s): I25.10 - Atherosclerotic heart disease of [place] coronary artery without angina pectoris Category: Medical Code(s): I25.10 - Atherosclerotic heart disease of [place] coronary artery without angina pectoris (7) Schizoaffective disorder Current visit: No Status: Chronic Qualifiers: Schizoaffective disorder type: other Qualified Code(s): F25.8 - Other schizoaffective disorders Category: Medical Code(s): F25.9 - Schizoaffective disorder, unspecified (8) Type 2 diabetes mellitus with complications Current visit: No Status: Chronic Category: Medical Code(s): E11.8 - Type 2 diabetes mellitus with unspecified complications (9) Heart failure, unspecified Current visit: No Status: Chronic Qualifiers: Heart failure type: combined systolic and diastolic Heart failure chronicity: chronic Qualified Code(s): I50.42 - Chronic combined systolic (congestive) and diastolic (congestive) heart failure Category: Medical Code(s): I50.9 - Heart failure, unspecified - Assessment and plan all Dx Assessment and Plan for all problems:: Plan: 1. The patient was admitted to the hospital with chest pain. The patient is describing typical angina symptoms. He has ruled out for an OH. The patient does report that he has coronary artery disease with previous stenting. The patient is unable to tell me where he had those stents or when. We will set the patient up for a Lexiscan Myoview stress test to rule out ischemia. 2. Given his shortness of breath we will also proceed with an echocardiogram to evaluate his LV function. He does have a history of congestive heart failure. 3. Coronary artery disease is present. 4. His blood pressure is on the low side. But stable. 5. The patient is tachycardic. He should be on a beta-jessie. We will stop his irbesartan and switch him over to bisoprolol 5 mg today for better heart rate control. 6. The patient LDL goal is less than 55. We will get a lipid panel. 7. The patient is diabetic. He does need aggressive control of his diabetes. Will defer this to his primary care provider. 8. Further recommendations were made pending the results of his Lexiscan Myoview stress test and echocardiogram today. Thank you for the opportunity to help participate in the care of this patient.
--- NOTE | 2018-11-18 10:09 | Progress Note ---
Internal Medicine - PN: Subj *Date: 11/18/18 *Time: 10:07 Interval history: doing better - will see card and do stress test and echo Exam Vital signs and Labs for Last 24 Hours: Temp Pulse Resp BP Pulse Ox 98.0 F 88 18 103/67 L 93 L 11/18/18 08:00 11/18/18 08:00 11/18/18 08:00 11/18/18 08:00 11/18/18 08:00 Laboratory Results - last 24 hr 11/17/18 17:21: WBC 13.6 H, RBC 3.48 L, Hgb 10.8 L, Hct 35.6 L, MCV 102.4 H, MCH 31.0, MCHC 30.3 L, RDW 14.5, Plt Count 419, MPV 7.7, Neut % (Auto) 74.4, Lymph % (Auto) 16.4, [place] % (Auto) 6.9, Eos % (Auto) 1.7, Baso % (Auto) 0.6, Neut # (Auto) 10.1 H, Lymph # (Auto) 2.3, [place] # (Auto) 0.9, Eos # (Auto) 0.2, Baso # (Auto) 0.1 11/17/18 17:21: Sodium 134 L, Potassium 4.7, Chloride 96 L, Carbon Dioxide 30, Anion Gap 12.7, BUN 24 H, Creatinine 1.42 H, Estimated Creat Clear 65, Estimated GFR 51 L, Est GFR ( Amer) 62, Glucose 128 H, Calcium 9.5, Total Bilirubin 0.3, AST 13 L, ALT 18, Alkaline Phosphatase 79, Troponin I < 0.02, Total Protein 8.6 H, Albumin 3.5, Globulin 5.1 H, Albumin/Globulin Ratio 0.7 L, Amylase 87, Lipase 345 11/17/18 20:37: POC Glucose 101 11/17/18 22:40: Troponin I < 0.02 11/18/18 01:44: Troponin I < 0.02 11/18/18 01:44: Triglycerides 255 H, Cholesterol 155, LDL Cholesterol 53, VLDL Cholesterol 51 H, HDL Cholesterol 51, Cholesterol/HDL Ratio 3.0 11/18/18 06:02: POC Glucose 140 H I & O for Last 24 hours: Intake & Output 0911/16/18 11/17/18 11/18/18 11:59 11:59 11:59 11:59 Intake Total 120 / 120 Balance 120 / 120 Weight 198 lb 2 oz - Constitutional no acute distress, obese - *Routine HEENT Exam Head: Present: normocephalic Eye: Present: EOMI, PERRL ENT: Present: mucous membranes dry - *Routine Neck Exam Absent: JVD - *Routine Respiratory Exam Present: decreased breath sounds - *Routine Cardiovascular Exam Present: RRR, murmur - *Routine Abdominal Exam Present: soft - *Routine Extremities Exam Absent: calf tenderness - *Routine Skin Exam Present: intact - *Routine Neurological Exam Present: alert, CN II-XII intact - Routine Psychiatric Exam Present: unable to assess Assessment and Plan (1) Obesity (BMI 30-39.9) Current visit: Yes Status: Acute Category: Medical Code(s): E66.9 - Obesity, unspecified (2) Chest pain, precordial Current visit: Yes Status: Acute Category: Medical Code(s): R07.2 - Precordial pain (3) Anemia Current visit: Yes Status: Acute Qualifiers: Anemia type: unspecified type Qualified Code(s): D64.9 - Anemia, unspecified Category: Medical Code(s): D64.9 - Anemia, unspecified (4) Renal insufficiency Current visit: Yes Status: Acute Category: Medical Code(s): N28.9 - Disorder of kidney and ureter, unspecified (5) HTN (hypertension) Current visit: Yes Status: Acute Qualifiers: Hypertension type: essential hypertension Qualified Code(s): I10 - Essential (primary) hypertension Category: Medical Code(s): I10 - Essential (primary) hypertension (6) Diabetes 1.5, managed as type 2 Current visit: Yes Status: Acute Category: Medical Code(s): E13.9 - Other specified diabetes mellitus without complications
--- NOTE | 2018-11-18 13:43 | Electrocardiograph Report ---
APPROVED REPORT Exam: Resting ECG HR:100 bpm ECG Measurements Heart Rate 100 AXES SD 152 P 37 QRSd 82 QRS 63 QT 308 T51 QTc 397 <Conclusion> Normal sinus rhythm Nonspecific T wave abnormality Abnormal ECG Electronically signed by : Fritz Acosta, 11/18/2018 13:42:53
--- NOTE | 2018-11-18 19:50 | Cardiology Report ---
APPROVED REPORT Exam: Pharmacologic Technologist: Katherine Bangura Ht: 5 ft 2 in Wt: 198 lbs BSA: 1.90 m2 HR: 70 bpm BP: 96/55 mmHg Indications: Chest pain Stress Test Details Test: LEXISCAN HR Resting HR: 71 bpmMax Heart Rate (APMHR): 161 bpm Max HR Achieved: 86 bpmTarget HR (85% APMHR): 136 bpm % of APMHR: 53 Recovery HR: 72 bpm BP Resting BP: 96.0/55.0 mmHg Max BP: 105.0/54.0 mmHg Recovery BP: 105.0/56.0 mmHg ECG Clinical Exercise duration: 04:08 min Highest Stage Achieved: Exercise capacity: 1.0 METs Stress ECG Conclusion Resting ECG: Normal sinus rhythm, first degree AV block Symptoms: Mild malaise Arrhythmias/Ectopy: None ST-T Changes: No significant changes Conclusion: Unremarkable Lexiscan stress. Myoview images reported separately. Test Summary REST.......Sitting REST03:44..71.... Stage 101:00..79.... Stage 201:00..81.... Stage 301:00..78.... Stage 401:00..75.86/ 50.. Stage 401:08..76.86/ 50.Stop exercise at 04:08 WAXZZXMI90:00..74.98/ 47.. ZHDGSOOF08:00..76.98/ 47.. ZWRZLPUO92:00..77.105/ 54.. VXCFMVXY16:00..75.105/ 54.. CPAHXQHO46:00..73.105/ 54.. BYGMEUTC83:00..73.105/ 54.. TLZSOPRZ69:00..75.105/ 54.. WKHBCAWT69:00..72.105/ 54.. COWTYBLQ09:43..73.105/ 56.. Electronically signed by : Jackson Ramírez, 11/18/2018 19:50:01
--- NOTE | 2018-11-19 09:05 | Progress Note ---
Subjective Date: 11/19/18 Time: 08:59 Principal diagnosis: chest pain Interval history: 57 yo WM in bed in NAD. Still relates intermittent chest pain as if someone is sitting on his chest. Unable to add further meds due to hypotension. Already on BB and imdur. Curt Myoview showed normal LVEF without ischemia. History of MARILEE to prox LAD in 06/2015. Exam Vital signs and Labs for Last 24 Hours: Temp Pulse Resp BP Pulse Ox 98.0 F 103 H 20 88/48 L 92 L 11/19/18 08:00 11/19/18 08:00 11/19/18 08:00 11/19/18 08:00 11/19/18 08:00 Laboratory Results - last 24 hr 11/18/18 01:44: Triglycerides 255 H, Cholesterol 155, LDL Cholesterol 53, VLDL Cholesterol 51 H, HDL Cholesterol 51, Cholesterol/HDL Ratio 3.0 11/18/18 11:42: POC Glucose 167 H 11/18/18 16:35: POC Glucose 108 11/18/18 20:44: POC Glucose 145 H 11/19/18 06:07: POC Glucose 132 H I & O for Last 24 hours: Intake & Output 11/16/18 11/17/18 11/18/18 11/19/18 11:59 11:59 11:59 11:59 Intake Total 120 / 120 1201 / 1201 Balance 120 / 120 1201 / 1201 Weight 198 lb 2 oz 199 lb - *Routine HEENT Exam Head: Present: normocephalic Eye: Present: EOMI, PERRL ENT: Present: mucous membranes moist - *Routine Respiratory Exam Present: CTA bilaterally. Absent: accessory muscle use, rales, rhonchi, wheezes - *Routine Cardiovascular Exam Present: RRR. Absent: murmur, gallop, rubs Progress Note: A&P (1) Obesity (BMI 30-39.9) Status: Acute Current Visit: Yes (2) Chest pain, precordial Status: Acute Current Visit: Yes (3) Anemia Status: Acute Current Visit: Yes (4) Renal insufficiency Status: Acute Current Visit: Yes (5) HTN (hypertension) Status: Acute Current Visit: Yes (6) Diabetes 1.5, managed as type 2 Status: Acute Current Visit: Yes Assessment and Plan for All Diagnoses:: Will plan to proceed with [facility] today due to continued angina class 4 chest pain. Further recommendations to follow
--- NOTE | 2018-11-19 09:11 | Progress Note ---
Internal Medicine - PN: Subj *Date: 11/19/18 *Time: 09:09 Interval history: Patient sitting up in bed voiced no complaints at this time Exam Vital signs and Labs for Last 24 Hours: Temp Pulse Resp BP Pulse Ox 98.0 F 103 H 20 88/48 L 92 L 11/19/18 08:00 11/19/18 08:00 11/19/18 08:00 11/19/18 08:00 11/19/18 08:00 Laboratory Results - last 24 hr 11/18/18 01:44: Triglycerides 255 H, Cholesterol 155, LDL Cholesterol 53, VLDL Cholesterol 51 H, HDL Cholesterol 51, Cholesterol/HDL Ratio 3.0 11/18/18 11:42: POC Glucose 167 H 11/18/18 16:35: POC Glucose 108 11/18/18 20:44: POC Glucose 145 H 11/19/18 06:07: POC Glucose 132 H I & O for Last 24 hours: Intake & Output 11/16/18 11/17/18 11/18/18 11/19/18 11:59 11:59 11:59 11:59 Intake Total 120 / 120 1201 / 1201 Balance 120 / 120 1201 / 1201 Weight 198 lb 2 oz 199 lb - Constitutional no acute distress, obese - *Routine HEENT Exam Head: Present: normocephalic Eye: Present: PERRL ENT: Present: mucous membranes moist - *Routine Neck Exam Present: supple. Absent: lymphadenopathy - *Routine Respiratory Exam Present: CTA bilaterally - *Routine Cardiovascular Exam Present: RRR - *Routine Abdominal Exam Present: soft, normoactive bowel sounds. Absent: tenderness - *Routine Extremities Exam Present: full ROM. Absent: cyanosis, clubbing, edema - *Routine Skin Exam Present: intact, warm. Absent: rash - *Routine Neurological Exam Present: alert, oriented X3 - Routine Psychiatric Exam Present: normal affect Assessment and Plan (1) Obesity (BMI 30-39.9) Current visit: Yes Status: Acute Category: Medical Code(s): E66.9 - Obesity, unspecified (2) Chest pain, precordial Current visit: Yes Status: Acute Category: Medical Code(s): R07.2 - Precordial pain (3) Anemia Current visit: Yes Status: Acute Qualifiers: Anemia type: unspecified type Qualified Code(s): D64.9 - Anemia, unspecified Category: Medical Code(s): D64.9 - Anemia, unspecified (4) Renal insufficiency Current visit: Yes Status: Acute Category: Medical Code(s): N28.9 - Disorder of kidney and ureter, unspecified (5) HTN (hypertension) Current visit: Yes Status: Acute Qualifiers: Hypertension type: essential hypertension Qualified Code(s): I10 - Essential (primary) hypertension Category: Medical Code(s): I10 - Essential (primary) hypertension (6) Diabetes 1.5, managed as type 2 Current visit: Yes Status: Acute Category: Medical Code(s): E13.9 - Other specified diabetes mellitus without complications - Assessment and plan all Dx Assessment and Plan for all problems:: Rounded with Dr. Travis all orders per Angy
[2018-11-20 07:51] LABS: Basophils # 0.1 K/mm3 (0-0.2); Basophils % 0.5 % (0.1-2.0); Eosinophils # 0.2 K/mm3 (0.0-0.4); Eosinophils % 1.7 % (0.1-12.0); Hematocrit 36.9 % (42.0-52.0); Hemoglobin 11.7 g/dL (14.1-18.0); Lymphocytes # 1.6 K/mm3 (0.7-4.5); Lymphocytes % 13.4 % (10-50); Mean Corpuscular HGB Conc 31.7 g/dL (31.8-35.4); Mean Corpuscular Volume 100.6 fl (80-94); Mean Platelet Volume 8.4 fl (7.4-10.4); Monocytes # 0.6 K/mm3 (0.1-1.0); Neutrophils # 9.4 K/mm3 (1.8-7.8); Neutrophils % 79.4 % (37.0-80.0); Platelet Count 397 K/mm3 (142-424); Red Blood Count 3.67 M/mm3 (4.60-6.20); Red Cell Distribution Width 13.8 % (11.5-17.5); White Blood Count 11.8 K/mm3 (4.8-10.8)
[2018-11-20 07:54] LABS: Anion Gap 12.4 mEq/L (5-15); Calcium 9.5 mg/dL (8.5-10.1)
--- NOTE | 2018-11-20 08:08 | Progress Note ---
Subjective Date: 11/20/18 Time: 08:05 Principal diagnosis: chest pain Interval history: 57-year-old white male in bed in no acute distress but did not. Denies any chest pain or shortness of breath. Exam Vital signs and Labs for Last 24 Hours: Temp Pulse Resp BP Pulse Ox 98.3 F 88 17 108/60 L 94 L 11/20/18 04:00 11/20/18 04:00 11/20/18 04:00 11/20/18 04:00 11/20/18 04:00 Laboratory Results - last 24 hr 11/19/18 16:28: POC Glucose 122 H 11/19/18 20:22: POC Glucose 135 H 11/20/18 07:38: WBC 11.8 H, RBC 3.67 L, Hgb 11.7 L, Hct 36.9 L, MCV 100.6 H, MCH 31.9 H, MCHC 31.7 L, RDW 13.8, Plt Count 397, MPV 8.4, Neut % (Auto) 79.4, Lymph % (Auto) 13.4, [place] % (Auto) 5.0, Eos % (Auto) 1.7, Baso % (Auto) 0.5, Neut # (Auto) 9.4 H, Lymph # (Auto) 1.6, [place] # (Auto) 0.6, Eos # (Auto) 0.2, Baso # (Auto) 0.1 11/20/18 07:38: Sodium 138, Potassium 4.4, Chloride 100, Carbon Dioxide 30, Anion Gap 12.4, BUN 27 H, Creatinine 1.46 H, Estimated Creat Clear 68, Estimated GFR 49 L, Est GFR ( Amer) 60, Glucose 136 H, Calcium 9.5 I & O for Last 24 hours: Intake & Output 11/17/18 11/18/18 11/19/18 11/20/18 11:59 11:59 11:59 11:59 Intake Total 120 / 120 1201 / 1201 480 / 480 Balance 120 / 120 1201 / 1201 480 / 480 Weight 198 lb 2 oz 199 lb 195 lb 8 oz - *Routine Respiratory Exam Present: CTA bilaterally. Absent: accessory muscle use, rales, rhonchi, wheezes - *Routine Cardiovascular Exam Present: RRR. Absent: murmur, gallop, rubs - *Routine Neurological Exam Present: alert, oriented X3, moving all extremities Progress Note: A&P (1) Obesity (BMI 30-39.9) Status: Acute Current Visit: Yes (2) Chest pain, precordial Status: Acute Current Visit: Yes (3) Anemia Status: Acute Current Visit: Yes (4) Renal insufficiency Status: Acute Current Visit: Yes (5) HTN (hypertension) Status: Acute Current Visit: Yes (6) Diabetes 1.5, managed as type 2 Status: Acute Current Visit: Yes Assessment and Plan for All Diagnoses:: 1. Coronary artery disease, stable by cardiac cath yesterday. 2. Chronic kidney disease, stage II, stable 3. Diabetes mellitus 4. Anemia.
--- NOTE | 2018-11-20 08:47 | Discharge Summary ---
General - General Admission date:: 11/17/18 Discharge date: 11/20/18 HPI HPI: this wm presented to ed with chest pain pt from [facility] -chest pain after eating, Pt points to the upper gastric area for his area of pain- pt is difficult historian and was admitted for card eval and serial enz Hospital Course Hospital Course: stress test:Conclusion: 1. The EKG portion of the Lexiscan Myoview is nondiagnostic. 2. No scintigraphic evidence of reversible ischemia seen, computer derived ejection fraction is 65% with no regional wall motion abnormality, right ventricle is normal size and contractility. 3. Normal Lexiscan Myoview study heart cath:ANGIOGRAPHIC RESULTS The left main artery Has a smooth ostial 20 to 30% stenosis The left anterior descending artery Has a stent in the ostial proximal segment which is widely patent free of in-stent restenosis with excellent proximal distal transitioning. The remaining vessel is free of disease The circumflex artery Is a small caliber non-dominant vessel with mild 10 to 20% luminal irregularities The right coronary artery Is a dominant vessel with mid vessel 30% stenoses and a distal 30% [id number] stenosis The ECHEVARRIA ventriculogram reveals Normal 65% The left ventricular end-diastolic pressure 15 mmHg IMPRESSION Coronary arteries as described above Normal ejection fraction Mildly elevated LVEDP PLAN 1. Medical management 2. Risk factor modification Cardiology recommends: 1. Coronary artery disease, stable by cardiac cath yesterday. 2. Chronic kidney disease, stage II, stable 3. Diabetes mellitus 4. Anemia. chest x ray: FINDINGS: Cardiac silhouette is probably at the upper limits of normal considering technique and hypoaerated lungs. The lungs are clear without infiltrates, suspicious nodules, or pleural effusions. No acute bony abnormalities. IMPRESSION: No acute findings. Today patient sitting up in bed eating breakfast denies any chest pain or julio c rtness of breath. Will discharge back to [facility] with cardiology follow-up. Objective Vital signs: Temp Pulse Resp BP Pulse Ox 98.0 F 81 22 100/64 L 91 L 11/20/18 08:36 11/20/18 08:36 11/20/18 08:36 11/20/18 08:36 11/20/18 08:36 no acute distress, chronically ill appearing - *Routine HEENT Exam Head: Present: normocephalic Eye: Present: PERRL ENT: Present: mucous membranes moist - *Routine Respiratory Exam Present: CTA bilaterally - *Routine Cardiovascular Exam Present: RRR - *Routine Abdominal Exam Present: soft, normoactive bowel sounds. Absent: tenderness - *Routine Extremities Exam Present: full ROM. Absent: edema - *Routine Skin Exam Present: intact - *Routine Neurological Exam Present: alert, oriented X3 - Routine Psychiatric Exam Present: normal affect Results Labs on day of discharge: Labs from last 24 hours 11/20/18 11/20/18 11/19/18 07:38 07:38 20:22 WBC 11.8 H RBC 3.67 L Hgb 11.7 L Hct 36.9 L MCV 100.6 H MCH 31.9 H MCHC 31.7 L RDW 13.8 Plt Count 397 MPV 8.4 Neut % (Auto) 79.4 Lymph % (Auto) 13.4 [place] % (Auto) 5.0 Eos % (Auto) 1.7 Baso % (Auto) 0.5 Neut # (Auto) 9.4 H Lymph # (Auto) 1.6 [place] # (Auto) 0.6 Eos # (Auto) 0.2 Baso # (Auto) 0.1 Sodium 138 Potassium 4.4 Chloride 100 Carbon Dioxide 30 Anion Gap 12.4 BUN 27 H Creatinine 1.46 H Estimated Creat Clear 68 Estimated GFR 49 L Est GFR ( Amer) 60 Glucose 136 H POC Glucose 135 H Calcium 9.5 11/19/18 16:28 WBC RBC Hgb Hct MCV MCH MCHC RDW Plt Count MPV Neut % (Auto) Lymph % (Auto) [place] % (Auto) Eos % (Auto) Baso % (Auto) Neut # (Auto) Lymph # (Auto) [place] # (Auto) Eos # (Auto) Baso # (Auto) Sodium Potassium Chloride Carbon Dioxide Anion Gap BUN Creatinine Estimated Creat Clear Estimated GFR Est GFR ( Amer) Glucose POC Glucose 122 H Calcium - Additional Comments Rounded with Dr. Travis all orders per Angy DS: Diagnosis - Discharge Diagnosis (1) Obesity (BMI 30-39.9) Status: Acute (2) Chest pain, precordial Status: Acute (3) Anemia Status: Acute (4) Renal insufficiency Status: Acute (5) HTN (hypertension) Status: Acute (6) Diabetes 1.5, managed as type 2 Status: Acute Discharge Plan - Patient Discharge Instructions ACTIVITY: Continue current activity DIET: continue same diet Patient Instructions: Angina, DI for Angina, DI for Cardiac Catheterization, DI for Surgical Site Infection, DI for Chest Pain - Follow up Plan Follow up with: Kign Nina MD [Staff Physician] - 2 weeks Roney Travis MD [Staff Physician] - 1 week (will see at assisted) Disposition: Xfer SNF Home Medications: Home Medications Medication Instructions Recorded Confirmed Type aspirin 81 mg tablet,delayed 81 mg PO DAILY 03/24/17 11/17/18 History release atorvastatin 40 mg tablet 40 mg PO HS 03/24/17 11/17/18 History docusate sodium 250 mg capsule 250 mg PO DAILYP PRN 03/24/17 11/17/18 History furosemide 80 mg tablet 80 mg PO BID tab 03/24/17 11/17/18 History loratadine 10 mg tablet 10 mg PO DAILY 03/24/17 11/17/18 History isosorbide mononitrate ER 30 mg 30 mg PO DAILY 04/11/17 11/17/18 History tablet,extended release 24 hr folic acid 0.8 mg capsule 0.8 mg PO DAILY 09/30/17 11/17/18 History magnesium 400 mg (as magnesium 400 mg PO HS cap 09/30/17 11/17/18 History oxide) capsule spironolactone 50 mg tablet 50 mg PO BID tab 09/30/17 11/17/18 History Acetaminophen 500 mg PO Q4HP PRN 11/10/17 11/17/18 History Omeprazole [Omeprazole 20mg 20 mg PO Q48H 11/10/17 11/17/18 History Capsule] Cyanocobalamin (Vitamin B-12) 750 mcg PO DAILY 11/11/17 11/17/18 History [Vitamin B-12] Levothyroxine Sodium 50 mcg PO DAILY 11/11/17 11/17/18 History [Levothyroxine 50mcg (0.05mg) Tab] Potassium Chloride [Klor-con 20 40 meq PO BID 11/11/17 11/17/18 History mEq tablet] Tamsulosin HCl [Flomax 0.4mg 0.4 mg PO DAILY 11/11/17 11/17/18 History capsule] Trazodone HCl 100 mg PO HS 11/11/17 11/17/18 History tramadol 50 mg tablet 50 mg PO BID tab 03/31/18 11/17/18 History losartan 25 mg tablet 12.5 mg PO DAILY tab 09/29/18 11/17/18 History Bisacodyl [Bisacodyl 10mg Supp] 10 mg RC DAILYP PRN 11/17/18 11/17/18 History Lactulose [Lactulose 10gm/15ml 20 gm PO DAILYP PRN 11/17/18 11/18/18 History Oral Soln] Linagliptin [Tradjenta 5mg tablet] 5 mg PO DAILY 11/17/18 11/17/18 History Mag Carb/Aluminum Hydrox/Algin 30 ml PO Q4HP PRN 11/17/18 11/18/18 History [Acid Gone Antacid Liquid] Multivitamin,Ther and Minerals 1 each PO DAILY 11/17/18 11/17/18 History [Vitamin and Minerals] ARIPiprazole [Aripiprazole 15mg 15 mg PO HS 11/18/18 11/18/18 History Tablet] Duloxetine HCl 120 mg PO DAILY 11/18/18 11/18/18 History Metformin HCl 500 mg PO BID 11/18/18 11/18/18 History Prescriptions/Medication Reconciliation: Continued aspirin 81 mg tablet,delayed release 81 mg PO DAILY docusate sodium 250 mg capsule 250 mg PO DAILYP PRN PRN Reason: Constipation furosemide 80 mg tablet 80 mg PO BID tab atorvastatin 40 mg tablet 40 mg PO HS spironolactone 50 mg tablet 50 mg PO BID tab magnesium 400 mg (as magnesium oxide) capsule 400 mg PO HS cap tramadol 50 mg tablet 50 mg PO BID tab losartan 25 mg tablet 12.5 mg PO DAILY tab loratadine 10 mg tablet 10 mg PO DAILY isosorbide mononitrate ER 30 mg tablet,extended release 24 hr 30 mg PO DAILY folic acid 0.8 mg capsule 0.8 mg PO DAILY Acetaminophen 500 mg PO Q4HP PRN PRN Reason: PAIN/FEVER Trazodone HCl 100 mg PO HS Levothyroxine Sodium [Levothyroxine 50mcg (0.05mg) Tab] 50 mcg PO DAILY Cyanocobalamin (Vitamin B-12) [Vitamin B-12] 750 mcg PO DAILY Lactulose [Lactulose 10gm/15ml Oral Soln] 20 gm PO DAILYP PRN PRN Reason: Constipation Multivitamin,Ther and Minerals [Vitamin and Minerals] 1 each PO DAILY Linagliptin [Tradjenta 5mg tablet] 5 mg PO DAILY Duloxetine HCl 120 mg PO DAILY Metformin HCl 500 mg PO BID Omeprazole [Omeprazole 20mg Capsule] 20 mg PO Q48H Tamsulosin HCl [Flomax 0.4mg capsule] 0.4 mg PO DAILY Potassium Chloride [Klor-con 20 mEq tablet] 40 meq PO BID Mag Carb/Aluminum Hydrox/Algin [Acid Gone Antacid Liquid] 30 ml PO Q4HP PRN PRN Reason: Indigestion Bisacodyl [Bisacodyl 10mg Supp] 10 mg RC DAILYP PRN PRN Reason: Constipation ARIPiprazole [Aripiprazole 15mg Tablet] 15 mg PO HS - Problem Reconciliation Problems Reviewed?: Yes
== END 2018-11-20 11:09 ==
LOC: 2ND 16:47 → ER 16:47 → 2ND 19:58
PROVIDERS: ADMIT Internal Medicine Adolescent Medicine; ATTEND Emergency Medicine
CPT/HCPCS: 36415; 71010; 71045; 78452; 80048; 80053; 80061; 82150; 82962; 83690; 84484; 85025; 93005; 93017; 93458; 99152; 99284; A9502; C1725; C1769; G0378; J2785; Q9967

== ENCOUNTER → 2018-12-09 10:52 | Outpatient (CLI) | payer MEDICARE, MEDICAID, SELFPAY | PROVIDERS: PCP Emergency Medicine; Visit Provider Urology | DX: I50.9 Heart failure, unspecified (principal); R07.89 Other chest pain; I25.10 Atherosclerotic heart disease of native coronary artery without angina pectoris | CPT/HCPCS: 93306; 93308 ==

== ENCOUNTER 2019-01-24 18:30 | Inpatient (IN) ==
[2019-01-24 19:01] LABS: Basophils # 0.1 K/mm3 (0-0.2); Basophils % 0.4 % (0.1-2.0); Eosinophils # 0.3 K/mm3 (0.0-0.4); Hematocrit 33.6 % (42.0-52.0); Hemoglobin 10.8 g/dL (14.1-18.0); Lymphocytes % 12.3 % (10-50); Mean Corpuscular Volume 100.8 fl (80-94); Mean Platelet Volume 7.4 fl (7.4-10.4); Monocytes # 0.7 K/mm3 (0.1-1.0); Monocytes % 4.6 % (1.7-9.3); Neutrophils # 12.7 K/mm3 (1.8-7.8); Neutrophils % 80.7 % (37.0-80.0); Platelet Count 406 K/mm3 (142-424); Red Blood Count 3.33 M/mm3 (4.60-6.20); Red Cell Distribution Width 14.4 % (11.5-17.5); White Blood Count 15.7 K/mm3 (4.8-10.8)
[2019-01-24 19:16] LABS: Alanine Aminotransferase 19 U/L (12-78); Albumin Level 3.3 gm/dL (3.4-5.0); Alkaline Phosphatase 89 U/L (46-116); Anion Gap 17.1 mEq/L (5-15); Aspartate Amino Transferase 14 U/L (15-37); Bilirubin,Direct 0.1 mg/dL (0.0-0.2); Bilirubin,Indirect 0.2 mg/dL (0.0-0.9); Bilirubin,Total 0.3 mg/dL (0.2-1.0); Blood Urea Nitrogen 18 mg/dL (7-18); Calcium 8.6 mg/dL (8.5-10.1); Carbon Dioxide 25 mmol/L (21.0-32.0); Chloride 93 mmol/L (98-107); Glucose 150 mg/dL (74-106); Sodium 131 mmol/L (136-145); Total Protein,Serum 8.1 gm/dL (6.4-8.2)
[2019-01-24 19:50] LABS: Eosinophils % 2 % (0-3); Lymphocytes % 6 % (10-50); Macrocytosis 1+; Monocytes % 2 % (2-9); Neutrophils % 86 % (42-76); Total Cells Counted 100
--- NOTE | 2019-01-24 20:58 | Emergency Department Note ---
ED Disposition Clinical Impression: Severe sepsis with acute organ dysfunction, Obesity (BMI 30-39.9) Anemia Qualifiers: Anemia type: unspecified type Qualified Code(s): D64.9 - Anemia, unspecified Disposition: Admitted as Observation Condition on Discharge: Good Referrals: Roney Travis MD [Primary Care Provider] - - Critical Care Critical Care Time: No Attestation: On 01/24/19, the high probability of a clinically significant, sudden or life threatening deterioration of the following system(s) required my full and direct attention, intervention and personal management. The time I documented below is in addition to time spent performing reported procedures but includes the following listed in this critical care notation. Medical Decision Making - Medical Records Medical records reviewed: Yes: I reviewed the patient's medical records. - Gaudencio Inquiry Pt receiving controlled substance: No Vital Signs: 01/24/19 18:30 01/24/19 23:00 Temperature 98.5 F Temperature Source Oral Pulse Rate [Right Radial] 102 H 106 H Respiratory Rate 18 18 Blood Pressure [Right Arm] 103/56 L 104/47 L Blood Pressure Mean [Right Arm] 71 66 02 Sat by Pulse Oximetry 98 95 Oxygen Delivery Method Room Air Room Air - Lab Data Lab results reviewed: Yes: I reviewed the patient's lab results. Lab Results 01/24/19 18:45: WBC 15.7 H, RBC 3.33 L, Hgb 10.8 L, Hct 33.6 L, MCV 100.8 H, MCH 32.3 H, MCHC 32.0, RDW 14.4, Plt Count 406, MPV 7.4, Neut % (Auto) 80.7 H, Lymph % (Auto) 12.3, [place] % (Auto) 4.6, Eos % (Auto) 2.0, Baso % (Auto) 0.4, Neut # (Auto) 12.7 H, Lymph # (Auto) 2.0, [place] # (Auto) 0.7, Eos # (Auto) 0.3, Baso # (Auto) 0.1, Total Counted 100, Neutrophils % (Manual) 86 H, Band Neutrophils % 4.0, Lymphocytes % (Manual) 6 L, Monocytes % (Manual) 2, Eosinophils % (Manual) 2, Platelet Estimate Normal, RBC Morphology Not Reportable, Macrocytosis 1+ 01/24/19 18:45: Sodium 131 L, Potassium 4.1, Chloride 93 L, Carbon Dioxide 25, Anion Gap 17.1 H, BUN 18, Creatinine 1.77 H, Estimated Creat Clear 63, Estimated GFR 39 L, Est GFR ( Amer) 48 L, Glucose 150 H, Calcium 8.6, Total Bilirubin 0.3, Direct Bilirubin 0.1, Indirect Bilirubin 0.2, AST 14 L, ALT 19, Alkaline Phosphatase 89, Troponin I < 0.02, Total Protein 8.1, Albumin 3.3 L 01/24/19 18:45: Lactate 2.9 H 01/24/19 18:45: Amylase 79 01/24/19 18:45: Lipase 327 01/24/19 21:52: Troponin I < 0.02 01/24/19 21:52: Lactate 3.6 H 01/25/19 00:30: Urine Color Yellow, Urine Appearance Clear, Urine pH 5.5, Ur Specific [place] 1.015, Urine Protein Negative, Urine Glucose (UA) Negative, Urine Ketones Negative, Urine Blood Negative, Urine Nitrate Negative, Urine Bilirubin Negative, Urine Urobilinogen 0.2, Ur Leukocyte Esterase Negative, Amorphous Sediment Trace 01/25/19 00:30: Troponin I < 0.02 01/25/19 00:30: Lactate 5.1 H Result diagrams: 01/24/19 18:45 01/24/19 18:45 Orders (Tests/Meds): ED MEDICATIONS Generic Name Dose Route Start Last Admin Trade Name Freq PRN Reason Stop Dose Admin Ertapenem 1 gm/ Sodium 50 mls @ 100 mls/hr 01/24/19 22:45 01/24/19 22:57 Chloride IV 02/07/19 22:44 100 mls/hr Q24H ANSON Administration Protocol Discontinued Medications Generic Name Dose Route Start Last Admin Trade Name Freq PRN Reason Stop Dose Admin Aspirin 324 mg 01/24/19 18:37 01/24/19 18:54 Aspirin 81mg Chewable Tablet PO 01/24/19 18:38 324 mg ONCE ONE Administration Methylprednisolone Sodium Succinate 125 mg 01/24/19 18:37 01/24/19 18:54 Solu-Medrol 125mg/2ml Vial IV 01/24/19 18:38 125 mg ONCE ONE Administration ORDERS Category Date Time Status CT abdomen pelvis wo con Stat Cat Scan 01/25/19 00:01 Taken XR chest portable Stat Exams 01/24/19 18:36 Taken Blood Culture Stat Micro 01/24/19 18:45 Received - Radiology Data #1 Image(s): Chest Image Reviewed: Yes I reviewed the patient's radiology image Preliminary Findings: Normal/NAD (nonspecific) - CT Data CT Scan: Abdomen, Pelvis Time Received: 00:[address] Reviewed: Yes: I have viewed the radiologist's interpretation Preliminary Findings: Normal/NAD - ECG Data Tracing #1 Arrhythmias present: sinus tach Ischemic changes: non-specific ST-T wave changes Resp/SOB HPI - General Chief Complaint: Shortness of Breath/Dyspnea Stated Complaint: chest pain, shortness of breath Time Seen by Provider: 01/24/19 20:00 Mode of Arrival: EMS Source of Information: Patient, EMS, Medical Record Limitations: Physical Limitations Description of Symptoms (Recalled from ER Triage Doc. by RN): pt presents to ed with c/o right sided chest pain, shortness of breath and cough/congestion. - History of Present Illness wm sent from [facility] with cough and rt sided abd pain - no fever and no rash - MD Complaint: cough Onset (ago): day(s) Severity: moderate Associated symptoms: denies other symptoms - Related Data Home oxygen amount: none Home Medications Medication Instructions Recorded Confirmed aspirin 81 mg tablet,delayed 81 mg PO DAILY 03/24/17 01/24/19 release atorvastatin 40 mg tablet 40 mg PO HS 03/24/17 01/24/19 docusate sodium 250 mg capsule 250 mg PO DAILYP PRN 03/24/17 01/24/19 furosemide 80 mg tablet 80 mg PO BID tab 03/24/17 01/24/19 loratadine 10 mg tablet 10 mg PO DAILY 03/24/17 01/24/19 isosorbide mononitrate ER 30 mg 30 mg PO DAILY 04/11/17 01/24/19 tablet,extended release 24 hr folic acid 0.8 mg capsule 0.8 mg PO DAILY 09/30/17 01/24/19 magnesium 400 mg (as magnesium 400 mg PO HS cap 09/30/17 01/24/19 oxide) capsule spironolactone 50 mg tablet 50 mg PO BID tab 09/30/17 01/24/19 Acetaminophen 500 mg PO Q4HP PRN 11/10/17 01/24/19 Omeprazole [Omeprazole 20mg 20 mg PO Q48H 11/10/17 01/24/19 Capsule] Cyanocobalamin (Vitamin B-12) 750 mcg PO DAILY 11/11/17 01/24/19 [Vitamin B-12] Levothyroxine Sodium 50 mcg PO DAILY 11/11/17 01/24/19 [Levothyroxine 50mcg (0.05mg) Tab] Potassium Chloride [Klor-con 20 40 meq PO BID 11/11/17 01/24/19 mEq tablet] Tamsulosin HCl [Flomax 0.4mg 0.4 mg PO DAILY 11/11/17 01/24/19 capsule] Trazodone HCl 100 mg PO HS 11/11/17 01/24/19 tramadol 50 mg tablet 50 mg PO BID tab 03/31/18 01/24/19 losartan 25 mg tablet 12.5 mg PO DAILY tab 09/29/18 01/24/19 Bisacodyl [Bisacodyl 10mg Supp] 10 mg RC DAILYP PRN 11/17/18 01/24/19 Lactulose [Lactulose 10gm/15ml 20 gm PO DAILYP PRN 11/17/18 01/24/19 Oral Soln] Linagliptin [Tradjenta 5mg tablet] 5 mg PO DAILY 11/17/18 01/24/19 Mag Carb/Aluminum Hydrox/Algin 30 ml PO Q4HP PRN 11/17/18 01/24/19 [Acid Gone Antacid Liquid] Multivitamin,Ther and Minerals 1 each PO DAILY 11/17/18 01/24/19 [Vitamin and Minerals] ARIPiprazole [Aripiprazole 15mg 15 mg PO HS 11/18/18 01/24/19 Tablet] Duloxetine HCl 120 mg PO DAILY 11/18/18 01/24/19 Metformin HCl 500 mg PO BID 11/18/18 01/24/19 Olopatadine HCl [Patanol] 1 drp OU BID 01/24/19 01/24/19 Sennosides [Senna] 8.6 mg PO BID 01/24/19 01/24/19 Allergies Allergy/AdvReac Type Severity Reaction Status Date / Time morphine [MORPHINE] Allergy Mild "HURTS Verified 01/24/19 18:36 STOMACH" [facility] History - Hepatitis A Screen Drug use history?: No High risk sexual behaviors?: No History of sexually transmitted infection?: No Currently employed?: No Childcare worker?: No Do you have indoor plumbing?: Yes Do you have electricity?: Yes Attestation statement:: This patient has been screened for Hepatitis A risk factors. I have reviewed the patient's past medical history: Yes Medical History: Reports:: Anxiety, Asthma, Atherosclerotic Heart Disease, Congestive Heart Failure, Coronary Artery Disease, Depression, Diabetes Mellitus Type 2, Gastroesophageal Reflux Disease(GERD), Home Oxygen, Hyperlipidemia, Hypertension, Lung Disease, Osteoporosis Denies:: Cancer, Diabetes Mellitus Type 1, Internal Pacemaker, Seizures Other Medical History: Reports: Anemia, Hypothyroidism, Osteoporosis, Thyroid Disease, Other Comment: subdural hematoma Laterality Cases: Bilateral: Carpal Tunnel Release Other Surgeries: Yes: No Previous Surgery, Coronary Stent, EGD, Hernia Repair, Other. No: Pacemaker Amputation: No Fractures: No Comment: impingement syndrome rt shoulder, cts,osteoarthritis,pica,schizoaffective dz,cad, - Social History Smoking Status: Former smoker Tobacco Type: cigarettes Alcohol Intake: never Alcohol Intake Frequency:: holidays/special occasions only Substance Use Type: marijuana Occupational Status: disabled Housing: [facility] Household Members: other - Psychiatric History Pschychiatric History:: Reports:: Anxiety, Depression Family Hx:: Unable to obtain Comment: lung disease, ROS Obtained: Yes All systems reviewed & no additional complaints - Constitutional Constitutional: Denies fever(s) - Eyes Eyes: Denies change in vision - ENT Ears, Nose, Mouth, and Throat: Denies sore throat - Cardiovascular Cardiovascular: Denies chest pain - Respiratory Respiratory: Yes as per HPI, Yes cough - Gastrointestinal Gastrointestingal: Denies: abdominal pain, vomiting - Genitourinary Male Genitourinary: Denies hematuria - Musculoskeletal Musculoskeletal: Denies joint swelling - Integumentary/Breasts Skin/Breast: Denies rash - Neurologic Neurologic: Denies headache(s), Denies loss of vision Physical Exam - General General appearance: alert - Head Head exam: normocephalic - Eye Eye exam: Present: PERRL, EOMI. Absent: scleral icterus - ENT ENT exam: Present: mucous membranes dry - Neck Neck exam: Present: trachea midline - Respiratory Respiratory exam: Present: normal lung sounds bilaterally. Absent: respiratory distress - Cardiovascular Cardiovascular exam: Present: regular rate, systolic murmur - Abdominal Exam Abdominal exam: Present: soft, tenderness. Absent: guarding, rebound, rigidity Abdominal tenderness: Present: RUQ. Absent: moderate - Extremities Exam Extremities exam: Present: full ROM - Neurological Exam Neurological exam: Present: alert, CN II-XII intact - Psychiatric Psychiatric exam: Present: normal affect - Skin Skin exam: Absent: rash
[2019-01-25 00:45] LABS: Microscopic, Urine URINE MICROSCOPIC (MICROSCOPIC)
[2019-01-25 00:53] LABS: Appearance,Urine CLEAR (Clear); Bilirubin,Urine Negative (Negative); Blood, Urine Negative (Negative); Color,Urine YELLOW (Yellow); Glucose,Urine (UA) Negative (Negative); Ketones,Urine Negative (Negative); Leukocyte Esterase,Urine Negative (Negative); PH,Urine 5.5 (5.0-8.5); Protein,Urine Negative (Negative); Specific Gravity, Urine 1.015 (1.005-1.030); Urobilinogen,Urine 0.2 EU/dl (0.2)
[2019-01-25 01:16] LABS: Amorphous Sediment,Urine Trace /lpf
[2019-01-25 06:17] LABS: Lymphocytes # 0.9 K/mm3 (0.7-4.5); Monocytes # 0.4 K/mm3 (0.1-1.0)
[2019-01-25 06:18] LABS: Anion Gap 16.1 mEq/L (5-15); Calcium 8.2 mg/dL (8.5-10.1)
[2019-01-25 06:34] LABS: Basophils % 0.1 % (0.1-2.0); Hematocrit 30.4 % (42.0-52.0); Lymphocytes % 5.5 % (10-50); Mean Corpuscular HGB Conc 32.8 g/dL (31.8-35.4); Mean Corpuscular Volume 101.4 fl (80-94); Mean Platelet Volume 7.6 fl (7.4-10.4); Monocytes % 2.5 % (1.7-9.3); Neutrophils # 14.1 K/mm3 (1.8-7.8); Neutrophils % 91.8 % (37.0-80.0); Platelet Count 378 K/mm3 (142-424); Red Cell Distribution Width 14.3 % (11.5-17.5); White Blood Count 15.3 K/mm3 (4.8-10.8)
--- NOTE | 2019-01-25 07:43 | Pharmacy Consult Notes ---
[facility] Pharm[facility] VTE Monitoring - Patient Demographics Admission date: 01/24/19 Report Date: 01/25/19 Time: 07:43 Allergies/Adverse Reactions: Patient Allergies morphine [MORPHINE] Allergy (Mild, Verified 01/24/19 18:36) "HURTS STOMACH" nitroglycerin Allergy (Mild, Verified 01/25/19 03:04) Nausea Height: 1.63 m Weight: 99.79 kg Patient Problems: Current Active Problems Anemia (Acute) Severe sepsis with acute organ dysfunction (Acute) Obesity (BMI 30-39.9) (Chronic) - VTE Risk Labs: VTE Related Lab Results Hgb 10.0 g/dL (14.1-18.0) L 01/25/19 05:29 Hct 30.4 % (42.0-52.0) L 01/25/19 05:29 Plt Count 378 K/mm3 (142-424) 01/25/19 05:29 BUN 20 mg/dL (7-18) H 01/25/19 05:29 Creatinine 1.61 mg/dL (0.70-1.30) H 01/25/19 05:29 Estimated Creat Clear 69 mL/min (50-200) 01/25/19 05:29 VTE Score: 7 VTE Risk Level: Moderate Risk - Prophylaxis VTE Prophylaxis Ordered?: Yes Types of VTE Prophylaxis: TEDS Knee High Location of Applied Device: Bilateral Lower Extremeties - VTE Diagnosis Confirmed Treatment or plan recommended: Continue Current Treatment
[2019-01-25 08:49] LABS: Lymphocytes % 5 % (10-50); Monocytes % 2 % (2-9); Neutrophils % 93 % (42-76); Total Cells Counted 100
[2019-01-25 08:50] LABS: Anisocytosis 1+; Macrocytosis 1+
--- NOTE | 2019-01-25 09:42 | History & Physical Report ---
*Admission Date: 01/24/19 *Chief complaint: cough *History of present illness: this pt was sent from [facility] with not feeling well with slight nonproductive cough and rt sided abd pain - pt is a poor historian - pt was seen in the ed and meet criteria for severe sepsis with organ dysfunction and septic shock as lactate elevated - he was given ivf and [facility] History I have reviewed the patient's past medical history: Yes Medical History: Reports:: Anxiety, Asthma, Atherosclerotic Heart Disease, Congestive Heart Failure, Congenital Heart Disease, Coronary Artery Disease, Depression, Diabetes Mellitus Type 2, Gastroesophageal Reflux Disease(GERD), Home Oxygen, Hyperlipidemia, Hypertension, Lung Disease, Osteoporosis Denies:: Cancer, Diabetes Mellitus Type 1, Internal Pacemaker, Seizures *Have you ever received a pneumonia vaccine?: Yes *Have you received a flu vaccine this season?: No Other Medical History: Reports: Anemia, Hypothyroidism, Osteoporosis, Thyroid Di sease, Other Laterality Cases: Bilateral: Carpal Tunnel Release Other Surgeries: Yes: No Previous Surgery, Coronary Stent, EGD, Hernia Repair, Other. No: Pacemaker Amputation: No Fractures: No - *Social History Educational Level: Completed High School Smoking Status: Former smoker Tobacco Type: cigarettes Alcohol Intake: former Alcohol Intake Frequency:: 3 or more drinks per day Substance Use Type: marijuana *Occupational Status:: disabled Housing: longterm Household Members: other *Travel in the last 8 weeks: None - Psychiatric History Pschychiatric History:: Reports:: Anxiety, Depression Family Hx:: Unable to obtain Review of Systems - Review of Systems Review of systems:: pertinent systems reviewed and negative unless documented below - Constitutional Denies fever(s) - Eyes Denies change in vision - ENT Denies sore throat - *Cardiovascular Denies shortness of breath - *Respiratory Denies cough - *Gastrointestinal Denies abdominal pain, Denies vomiting - *Genitourinary Denies blood in urine - *Musculoskeletal Denies joint pain, Denies neck pain - Integumentary/Breasts Denies rash - *Neurologic Denies headache(s), Denies loss of vision - Psychiatric Denies anxiety Meds Home Medications Medication Instructions Recorded Confirmed Type atorvastatin 40 mg tablet 40 mg PO HS 03/24/17 01/25/19 History docusate sodium 250 mg capsule 250 mg PO DAILYP PRN 03/24/17 01/25/19 History furosemide 80 mg tablet 80 mg PO BID tab 03/24/17 01/25/19 History loratadine 10 mg tablet 10 mg PO DAILY 03/24/17 01/25/19 History isosorbide mononitrate ER 30 mg 30 mg PO DAILY 04/11/17 01/25/19 History tablet,extended release 24 hr folic acid 0.8 mg capsule 0.8 mg PO DAILY 09/30/17 01/25/19 History magnesium 400 mg (as magnesium 400 mg PO HS cap 09/30/17 01/25/19 History oxide) capsule spironolactone 50 mg tablet 50 mg PO BID tab 09/30/17 01/25/19 History Acetaminophen 500 mg PO Q4HP PRN 11/10/17 01/24/19 History Omeprazole [Omeprazole 20mg 20 mg PO Q48H 11/10/17 01/25/19 History Capsule] Cyanocobalamin (Vitamin B-12) 750 mcg PO DAILY 11/11/17 01/25/19 History [Vitamin B-12] Levothyroxine Sodium 50 mcg PO DAILY 11/11/17 01/25/19 History [Levothyroxine 50mcg (0.05mg) Tab] Potassium Chloride [Klor-con 20 40 meq PO BID 11/11/17 01/25/19 History mEq tablet] Tamsulosin HCl [Flomax 0.4mg 0.4 mg PO DAILY 11/11/17 01/25/19 History capsule] Trazodone HCl 100 mg PO HS 11/11/17 01/25/19 History tramadol 50 mg tablet 50 mg PO BID tab 03/31/18 01/25/19 History losartan 25 mg tablet 12.5 mg PO DAILY tab 09/29/18 01/25/19 History Bisacodyl [Bisacodyl 10mg Supp] 10 mg RC DAILYP PRN 11/17/18 01/24/19 History Lactulose [Lactulose 10gm/15ml 20 gm PO DAILYP PRN 11/17/18 01/25/19 History Oral Soln] Linagliptin [Tradjenta 5mg tablet] 5 mg PO DAILY 11/17/18 01/25/19 History Mag Carb/Aluminum Hydrox/Algin 30 ml PO Q4HP PRN 11/17/18 01/25/19 History [Acid Gone Antacid Liquid] Multivitamin,Ther and Minerals 1 each PO DAILY 11/17/18 01/25/19 History [Vitamin and Minerals] ARIPiprazole [Aripiprazole 15mg 15 mg PO HS 11/18/18 01/25/19 History Tablet] Duloxetine HCl 120 mg PO DAILY 11/18/18 01/25/19 History Metformin HCl 500 mg PO BIDWM 11/18/18 01/25/19 History Olopatadine HCl [Patanol] 1 drp OU BID 01/24/19 01/25/19 History Sennosides [Senna] 8.6 mg PO BID 01/24/19 01/25/19 History Aspirin [Aspirin 81mg chewable 81 mg PO DAILY 01/25/19 01/25/19 History tab] Loperamide HCl [Anti-Diarrheal] 2 mg PO Q4HP PRN 01/25/19 01/25/19 History Allergies Allergy/AdvReac Type Severity Reaction Status Date / Time morphine [MORPHINE] Allergy Mild "HURTS Verified 01/24/19 18:36 STOMACH" nitroglycerin Allergy Mild Nausea Verified 01/25/19 03:04 Exam Vital signs and Labs for Last 24 Hours: Temp Pulse Resp BP Pulse Ox 98.5 F 105 H 22 125/59 L 95 01/25/19 08:00 01/25/19 08:00 01/25/19 08:00 01/25/19 08:00 01/25/19 08:00 Laboratory Results - last 24 hr 01/24/19 18:45: WBC 15.7 H, RBC 3.33 L, Hgb 10.8 L, Hct 33.6 L, MCV 100.8 H, MCH 32.3 H, MCHC 32.0, RDW 14.4, Plt Count 406, MPV 7.4, Neut % (Auto) 80.7 H, Lymph % (Auto) 12.3, [place] % (Auto) 4.6, Eos % (Auto) 2.0, Baso % (Auto) 0.4, Neut # (Auto) 12.7 H, Lymph # (Auto) 2.0, [place] # (Auto) 0.7, Eos # (Auto) 0.3, Baso # (Auto) 0.1, Total Counted 100, Neutrophils % (Manual) 86 H, Band Neutrophils % 4.0, Lymphocytes % (Manual) 6 L, Monocytes % (Manual) 2, Eosinophils % (Manual) 2, Platelet Estimate Normal, RBC Morphology Not Reportable, Macrocytosis 1+ 01/24/19 18:45: Sodium 131 L, Potassium 4.1, Chloride 93 L, Carbon Dioxide 25, Anion Gap 17.1 H, BUN 18, Creatinine 1.77 H, Estimated Creat Clear 63, Estimated GFR 39 L, Est GFR ( Amer) 48 L, Glucose 150 H, Calcium 8.6, Total Bilirubin 0.3, Direct Bilirubin 0.1, Indirect Bilirubin 0.2, AST 14 L, ALT 19, Alkaline Phosphatase 89, Troponin I < 0.02, Total Protein 8.1, Albumin 3.3 L 01/24/19 18:45: Lactate 2.9 H 01/24/19 18:45: Amylase 79 01/24/19 18:45: Lipase 327 01/24/19 21:52: Troponin I < 0.02 01/24/19 21:52: Lactate 3.6 H 01/25/19 00:30: Urine Color Yellow, Urine Appearance Clear, Urine pH 5.5, Ur Specific [place] 1.015, Urine Protein Negative, Urine Glucose (UA) Negative, Urine Ketones Negative, Urine Blood Negative, Urine Nitrate Negative, Urine Bilirubin Negative, Urine Urobilinogen 0.2, Ur Leukocyte Esterase Negative, Amorphous Sediment Trace 01/25/19 00:30: Troponin I < 0.02 01/25/19 00:30: Lactate 5.1 H 01/25/19 05:29: WBC 15.3 H, RBC 3.00 L, Hgb 10.0 L, Hct 30.4 L, MCV 101.4 H, MCH 33.3 H, MCHC 32.8, RDW 14.3, Plt Count 378, MPV 7.6, Neut % (Auto) 91.8 H, Lymph % (Auto) 5.5 L, [place] % (Auto) 2.5, Eos % (Auto) 0.0 L, Baso % (Auto) 0.1, Neut # (Auto) 14.1 H, Lymph # (Auto) 0.9, [place] # (Auto) 0.4, Eos # (Auto) 0.0, Baso # (Auto) 0.0, Total Counted 100, Neutrophils % (Manual) 93 H, Lymphocytes % (Manual) 5 L, Monocytes % (Manual) 2, Platelet Estimate Normal, Anisocytosis 1+, Macrocytosis 1+ 01/25/19 05:29: Sodium 131 L, Potassium 5.1 D, Chloride 97 L, Carbon Dioxide 23, Anion Gap 16.1 H, BUN 20 H, Creatinine 1.61 H, Estimated Creat Clear 69, Estimated GFR 44 L, Est GFR ( Amer) 53 L, Glucose 155 H, Calcium 8.2 L, Magnesium 1.9 01/25/19 06:13: POC Glucose 154 H I & O for Last 24 hours: Intake & Output 01/22/19 01/23/19 01/24/19 01/25/19 11:59 11:59 11:59 11:59 Intake Total 0 / 0 Balance 0 / 0 Weight 220 lb - Constitutional no acute distress, obese - *Routine HEENT Exam Head: Present: normocephalic Eye: Present: EOMI, PERRL ENT: Present: mucous membranes dry - *Routine Neck Exam Present: supple. Absent: JVD - *Routine Respiratory Exam Present: decreased breath sounds - *Routine Cardiovascular Exam Present: RRR, murmur, S4 - *Routine Abdominal Exam Present: soft. Absent: tenderness, distended, rebound - *Routine Extremities Exam Absent: calf tenderness - *Routine Skin Exam Present: intact - *Routine Neurological Exam Present: alert, oriented X3, CN II-XII intact. Absent: motor deficit, altered mental status - Routine Psychiatric Exam Present: unable to assess Assessment and Plan (1) Septic shock Current visit: Yes Status: Acute Category: Medical Code(s): A41.9 - Sepsis, unspecified organism; R65.21 - Severe sepsis with septic shock (2) Anemia Current visit: Yes Status: Acute Qualifiers: Anemia type: unspecified type Qualified Code(s): D64.9 - Anemia, unspecified Category: Medical Code(s): D64.9 - Anemia, unspecified (3) Renal insufficiency Current visit: No Status: Acute Category: Medical Code(s): N28.9 - Disorder of kidney and ureter, unspecified (4) Severe sepsis with acute organ dysfunction Current visit: Yes Status: Acute Category: Medical Code(s): A41.9 - Sepsis, unspecified organism; R65.20 - Severe sepsis without septic shock (5) Obesity (BMI 30-39.9) Current visit: Yes Status: Chronic Category: Medical Code(s): E66.9 - Obesity, unspecified (6) Schizoaffective disorder Current visit: No Status: Chronic Qualifiers: Schizoaffective disorder type: other Qualified Code(s): F25.8 - Other schizoaffective disorders Category: Medical Code(s): F25.9 - Schizoaffective disorder, unspecified (7) Hypothyroidism, unspecified Current visit: No Status: Chronic Qualifiers: Hypothyroidism type: other Qualified Code(s): E03.8 - Other specified hypothyroidism Category: Medical Code(s): E03.9 - Hypothyroidism, unspecified
[2019-01-25 15:13] LABS: Basophils % 0.2 % (0.1-2.0); Eosinophils # 0.2 K/mm3 (0.0-0.4); Eosinophils % 0.7 % (0.1-12.0); Hemoglobin 8.1 g/dL (14.1-18.0); Lymphocytes # 2.3 K/mm3 (0.7-4.5); Lymphocytes % 11.3 % (10-50); Mean Corpuscular HGB Conc 31.1 g/dL (31.8-35.4); Mean Corpuscular Volume 104.2 fl (80-94); Monocytes # 1.4 K/mm3 (0.1-1.0); Monocytes % 6.9 % (1.7-9.3); Neutrophils # 16.1 K/mm3 (1.8-7.8); Neutrophils % 80.8 % (37.0-80.0); Platelet Count 374 K/mm3 (142-424); Red Blood Count 2.49 M/mm3 (4.60-6.20); Red Cell Distribution Width 14.3 % (11.5-17.5); White Blood Count 19.9 K/mm3 (4.8-10.8)
[2019-01-25 15:18] LABS: Anion Gap 17.3 mEq/L (5-15); Calcium 7.8 mg/dL (8.5-10.1)
[2019-01-25 15:33] LABS: ABG Base Excess -5.1 mmol/L (-2.4-2.3); ABG Oxygen Saturation 95 % (90-100); ABG PCO2 34.5 mmhg (35.0-45.0); ABG PH 7.38 mmol/L (7.35-7.45); ABG PO2 80.1 mmhg (80-100); ABG TCO2 21.1 mmhg (23-27)
[2019-01-25 15:35] LABS: Allen's Test ACCEPTABLE
[2019-01-25 15:48] LABS: Eosinophils % 2 % (0-3); Lymphocytes % 11 % (10-50); Macrocytosis 1+; Monocytes % 9 % (2-9); Neutrophils % 78 % (42-76); Total Cells Counted 100
[2019-01-25 21:51] LABS: Anion Gap 14.2 mEq/L (5-15)
[2019-01-25 22:09] LABS: Basophils # 0.1 K/mm3 (0-0.2); Basophils % 0.5 % (0.1-2.0); Eosinophils # 0.2 K/mm3 (0.0-0.4); Hematocrit 31.2 % (42.0-52.0); Lymphocytes # 3.2 K/mm3 (0.7-4.5); Lymphocytes % 14.5 % (10-50); Mean Corpuscular HGB Conc 30.4 g/dL (31.8-35.4); Mean Corpuscular Volume 105.2 fl (80-94); Mean Platelet Volume 7.4 fl (7.4-10.4); Monocytes # 1.3 K/mm3 (0.1-1.0); Monocytes % 5.8 % (1.7-9.3); Neutrophils # 17.2 K/mm3 (1.8-7.8); Neutrophils % 78.3 % (37.0-80.0); Platelet Count 401 K/mm3 (142-424); Red Blood Count 2.96 M/mm3 (4.60-6.20); Red Cell Distribution Width 14.4 % (11.5-17.5); White Blood Count 21.9 K/mm3 (4.8-10.8)
[2019-01-25 22:23] LABS: Hemoglobin 9.5 g/dL (14.1-18.0)
--- NOTE | 2019-01-26 08:32 | Progress Note ---
Internal Medicine - PN: Subj *Date: 01/26/19 *Time: 08:30 Interval history: pt sitting up in bed, voiced no c/o Exam Vital signs and Labs for Last 24 Hours: Temp Pulse Resp BP Pulse Ox 98.1 F 93 H 24 109/65 L 96 01/26/19 07:49 01/26/19 07:00 01/26/19 03:47 01/26/19 07:00 01/26/19 07:00 Laboratory Results - last 24 hr 01/25/19 05:29: Total Counted 100, Neutrophils % (Manual) 93 H, Lymphocytes % (Manual) 5 L, Monocytes % (Manual) 2, Platelet Estimate Normal, Anisocytosis 1+, Macrocytosis 1+ 01/25/19 10:44: Lactate 2.1 H 01/25/19 10:57: POC Glucose 150 H 01/25/19 14:49: POC Glucose 129 H 01/25/19 15:05: WBC 19.9 H D, RBC 2.49 L, Hgb 8.1 L D, Hct 26.0 L, MCV 104.2 H, MCH 32.4 H, MCHC 31.1 L, RDW 14.3, Plt Count 374, MPV 8.0, Neut % (Auto) 80.8 H, Lymph % (Auto) 11.3, [place] % (Auto) 6.9, Eos % (Auto) 0.7, Baso % (Auto) 0.2, Neut # (Auto) 16.1 H, Lymph # (Auto) 2.3, [place] # (Auto) 1.4 H, Eos # (Auto) 0.2, Baso # (Auto) 0.0, Total Counted 100, Neutrophils % (Manual) 78 H, Lymphocytes % (Manual) 11, Monocytes % (Manual) 9, Eosinophils % (Manual) 2, Platelet Estimate Normal, Macrocytosis 1+ 01/25/19 15:05: Sodium 136, Potassium 4.3, Chloride 100, Carbon Dioxide 23, Anion Gap 17.3 H, BUN 24 H, Creatinine 2.14 H D, Estimated Creat Clear 52, Estimated GFR 32 L, Est GFR ( Amer) 38 L D, Glucose 109 H D, Calcium 7.8 L 01/25/19 15:05: Troponin I < 0.02 01/25/19 15:20: Specimen Source Left brachial, ABG pH 7.38, ABG pCO2 34.5 L, ABG pO2 80.1, ABG HCO3 20.0 L, ABG Total CO2 21.1 L, ABG O2 Saturation 95, ABG Base Excess -5.1 L, [place] Test Acceptable 01/25/19 15:36: Lactate 2.8 H 01/25/19 17:50: Lactate 3.2 H 01/25/19 20:03: POC Glucose 166 H 01/25/19 21:30: WBC 21.9 H*, RBC 2.96 L, Hgb 9.5 L D, Hct 31.2 L, MCV 105.2 H, MCH 32.0 H, MCHC 30.4 L, RDW 14.4, Plt Count 401, MPV 7.4, Neut % (Auto) 78.3, Lymph % (Auto) 14.5, [place] % (Auto) 5.8, Eos % (Auto) 1.0, Baso % (Auto) 0.5, Neut # (Auto) 17.2 H, Lymph # (Auto) 3.2, [place] # (Auto) 1.3 H, Eos # (Auto) 0.2, Baso # (Auto) 0.1 01/25/19 21:30: Sodium 135 L, Potassium 4.2, Chloride 101, Carbon Dioxide 24, Anion Gap 14.2, BUN 26 H, Creatinine 1.84 H, Estimated Creat Clear 60, Estimated GFR 38 L, Est GFR ( Amer) 46 L D, Glucose 129 H, Calcium 8.0 L, Lipase 264 01/25/19 21:30: Lactate 0.9 01/26/19 06:09: POC Glucose 110 I & O for Last 24 hours: Intake & Output 01/23/19 01/24/19 01/25/19 01/26/19 11:59 11:59 11:59 11:59 Intake Total 0 / 0 4569 / 4569 Output Total 3570 / 3570 Balance 0 / 0 999 / 999 Weight 219 lb 15.988 oz 218 lb - Constitutional no acute distress, obese - *Routine HEENT Exam Head: Present: normocephalic Eye: Present: PERRL ENT: Present: mucous membranes moist - *Routine Neck Exam Present: supple, full ROM. Absent: lymphadenopathy - *Routine Respiratory Exam Present: wheezes - *Routine Cardiovascular Exam Present: RRR - *Routine Abdominal Exam Present: soft, normoactive bowel sounds, obese. Absent: tenderness - *Routine Extremities Exam Present: full ROM. Absent: cyanosis, clubbing, edema - *Routine Skin Exam Present: warm. Absent: rash - *Routine Neurological Exam Present: alert, oriented X3 - Routine Psychiatric Exam Present: normal affect Assessment and Plan (1) Septic shock Current visit: Yes Status: Acute Category: Medical Code(s): A41.9 - Sepsis, unspecified organism; R65.21 - Severe sepsis with septic shock (2) Anemia Current visit: Yes Status: Acute Qualifiers: Anemia type: unspecified type Qualified Code(s): D64.9 - Anemia, unspecified Category: Medical Code(s): D64.9 - Anemia, unspecified (3) Renal insufficiency Current visit: No Status: Acute Category: Medical Code(s): N28.9 - Disorder of kidney and ureter, unspecified (4) Severe sepsis with acute organ dysfunction Current visit: Yes Status: Acute Category: Medical Code(s): A41.9 - Sepsis, unspecified organism; R65.20 - Severe sepsis without septic shock (5) Obesity (BMI 30-39.9) Current visit: Yes Status: Chronic Category: Medical Code(s): E66.9 - Obesity, unspecified (6) Schizoaffective disorder Current visit: No Status: Chronic Qualifiers: Schizoaffective disorder type: other Qualified Code(s): F25.8 - Other schizoaffective disorders Category: Medical Code(s): F25.9 - Schizoaffective disorder, unspecified (7) Hypothyroidism, unspecified Current visit: No Status: Chronic Qualifiers: Hypothyroidism type: other Qualified Code(s): E03.8 - Other specified hypothyroidism Category: Medical Code(s): E03.9 - Hypothyroidism, unspecified - Assessment and plan all Dx Assessment and Plan for all problems:: Rounded with Dr Travis all orders per Dr Travis
[2019-01-26 09:03] LABS: Basophils # 0.1 K/mm3 (0-0.2); Basophils % 0.6 % (0.1-2.0); Eosinophils # 0.2 K/mm3 (0.0-0.4); Eosinophils % 1.3 % (0.1-12.0); Hematocrit 31.1 % (42.0-52.0); Hemoglobin 9.6 g/dL (14.1-18.0); Lymphocytes % 13.5 % (10-50); Mean Corpuscular HGB Conc 30.8 g/dL (31.8-35.4); Mean Corpuscular Volume 104.8 fl (80-94); Mean Platelet Volume 7.4 fl (7.4-10.4); Monocytes # 0.8 K/mm3 (0.1-1.0); Monocytes % 5.3 % (1.7-9.3); Neutrophils # 11.6 K/mm3 (1.8-7.8); Neutrophils % 79.3 % (37.0-80.0); Platelet Count 356 K/mm3 (142-424); Red Blood Count 2.97 M/mm3 (4.60-6.20); Red Cell Distribution Width 14.4 % (11.5-17.5); White Blood Count 14.6 K/mm3 (4.8-10.8)
[2019-01-26 09:05] LABS: Anion Gap 11.4 mEq/L (5-15)
--- NOTE | 2019-01-26 09:17 | Pharmacy Consult Notes ---
- Pharmacy Consult Date: 01/26/19 Time: 09:13 Referring provider: DR. GALARZA Reason for Consult:: VANCOMYCIN DOSING Allergies and ADEs:: Allergies Allergy/AdvReac Type Severity Reaction Status Date / Time morphine [MORPHINE] Allergy Mild "HURTS Verified 01/24/19 18:36 STOMACH" nitroglycerin Allergy Mild Nausea Verified 01/25/19 03:04 Home Medications:: Home Medications Medication Instructions Recorded Confirmed Type atorvastatin 40 mg tablet 40 mg PO HS 03/24/17 01/25/19 History docusate sodium 250 mg capsule 250 mg PO DAILYP PRN 03/24/17 01/25/19 History furosemide 80 mg tablet 80 mg PO BID tab 03/24/17 01/25/19 History loratadine 10 mg tablet 10 mg PO DAILY 03/24/17 01/25/19 History isosorbide mononitrate ER 30 mg 30 mg PO DAILY 04/11/17 01/25/19 History tablet,extended release 24 hr folic acid 0.8 mg capsule 0.8 mg PO DAILY 09/30/17 01/25/19 History magnesium 400 mg (as magnesium 400 mg PO HS cap 09/30/17 01/25/19 History oxide) capsule spironolactone 50 mg tablet 50 mg PO BID tab 09/30/17 01/25/19 History Acetaminophen 500 mg PO Q4HP PRN 11/10/17 01/24/19 History Omeprazole [Omeprazole 20mg 20 mg PO Q48H 11/10/17 01/25/19 History Capsule] Cyanocobalamin (Vitamin B-12) 750 mcg PO DAILY 11/11/17 01/25/19 History [Vitamin B-12] Levothyroxine Sodium 50 mcg PO DAILY 11/11/17 01/25/19 History [Levothyroxine 50mcg (0.05mg) Tab] Potassium Chloride [Klor-con 20 40 meq PO BID 11/11/17 01/25/19 History mEq tablet] Tamsulosin HCl [Flomax 0.4mg 0.4 mg PO DAILY 11/11/17 01/25/19 History capsule] Trazodone HCl 100 mg PO HS 11/11/17 01/25/19 History tramadol 50 mg tablet 50 mg PO BID tab 03/31/18 01/25/19 History losartan 25 mg tablet 12.5 mg PO DAILY tab 09/29/18 01/25/19 History Bisacodyl [Bisacodyl 10mg Supp] 10 mg RC DAILYP PRN 11/17/18 01/24/19 History Lactulose [Lactulose 10gm/15ml 20 gm PO DAILYP PRN 11/17/18 01/25/19 History Oral Soln] Linagliptin [Tradjenta 5mg tablet] 5 mg PO DAILY 11/17/18 01/25/19 History Mag Carb/Aluminum Hydrox/Algin 30 ml PO Q4HP PRN 11/17/18 01/25/19 History [Acid Gone Antacid Liquid] Multivitamin,Ther and Minerals 1 each PO DAILY 11/17/18 01/25/19 History [Vitamin and Minerals] ARIPiprazole [Aripiprazole 15mg 15 mg PO HS 11/18/18 01/25/19 History Tablet] Duloxetine HCl 120 mg PO DAILY 11/18/18 01/25/19 History Metformin HCl 500 mg PO BIDWM 11/18/18 01/25/19 History Olopatadine HCl [Patanol] 1 drp OU BID 01/24/19 01/25/19 History Sennosides [Senna] 8.6 mg PO BID 01/24/19 01/25/19 History Aspirin [Aspirin 81mg chewable 81 mg PO DAILY 01/25/19 01/25/19 History tab] Loperamide HCl [Anti-Diarrheal] 2 mg PO Q4HP PRN 01/25/19 01/25/19 History Height: 1.63 m Weight: 98.883 kg Laboratory Results:: Laboratory Results - last 24 hr 01/25/19 10:44: Lactate 2.1 H 01/25/19 10:57: POC Glucose 150 H 01/25/19 14:49: POC Glucose 129 H 01/25/19 15:05: WBC 19.9 H D, RBC 2.49 L, Hgb 8.1 L D, Hct 26.0 L, MCV 104.2 H, MCH 32.4 H, MCHC 31.1 L, RDW 14.3, Plt Count 374, MPV 8.0, Neut % (Auto) 80.8 H, Lymph % (Auto) 11.3, [place] % (Auto) 6.9, Eos % (Auto) 0.7, Baso % (Auto) 0.2, Neut # (Auto) 16.1 H, Lymph # (Auto) 2.3, [place] # (Auto) 1.4 H, Eos # (Auto) 0.2, Baso # (Auto) 0.0, Total Counted 100, Neutrophils % (Manual) 78 H, Lymphocytes % (Manual) 11, Monocytes % (Manual) 9, Eosinophils % (Manual) 2, Platelet Estimate Normal, Macrocytosis 1+ 01/25/19 15:05: Sodium 136, Potassium 4.3, Chloride 100, Carbon Dioxide 23, Anion Gap 17.3 H, BUN 24 H, Creatinine 2.14 H D, Estimated Creat Clear 52, Estimated GFR 32 L, Est GFR ( Amer) 38 L D, Glucose 109 H D, Calcium 7.8 L 01/25/19 15:05: Troponin I < 0.02 01/25/19 15:20: Specimen Source Left brachial, ABG pH 7.38, ABG pCO2 34.5 L, ABG pO2 80.1, ABG HCO3 20.0 L, ABG Total CO2 21.1 L, ABG O2 Saturation 95, ABG Base Excess -5.1 L, [place] Test Acceptable 01/25/19 15:36: Lactate 2.8 H 01/25/19 17:50: Lactate 3.2 H 01/25/19 20:03: POC Glucose 166 H 01/25/19 21:30: WBC 21.9 H*, RBC 2.96 L, Hgb 9.5 L D, Hct 31.2 L, MCV 105.2 H, MCH 32.0 H, MCHC 30.4 L, RDW 14.4, Plt Count 401, MPV 7.4, Neut % (Auto) 78.3, Lymph % (Auto) 14.5, [place] % (Auto) 5.8, Eos % (Auto) 1.0, Baso % (Auto) 0.5, Neut # (Auto) 17.2 H, Lymph # (Auto) 3.2, [place] # (Auto) 1.3 H, Eos # (Auto) 0.2, Baso # (Auto) 0.1 01/25/19 21:30: Sodium 135 L, Potassium 4.2, Chloride 101, Carbon Dioxide 24, Anion Gap 14.2, BUN 26 H, Creatinine 1.84 H, Estimated Creat Clear 60, Estimated GFR 38 L, Est GFR ( Amer) 46 L D, Glucose 129 H, Calcium 8.0 L, Lipase 264 01/25/19 21:30: Lactate 0.9 01/26/19 06:09: POC Glucose 110 01/26/19 08:45: WBC 14.6 H D, RBC 2.97 L, Hgb 9.6 L, Hct 31.1 L, MCV 104.8 H, MCH 32.3 H, MCHC 30.8 L, RDW 14.4, Plt Count 356, MPV 7.4, Neut % (Auto) 79.3, Lymph % (Auto) 13.5, [place] % (Auto) 5.3, Eos % (Auto) 1.3, Baso % (Auto) 0.6, Neut # (Auto) 11.6 H, Lymph # (Auto) 2.0, [place] # (Auto) 0.8, Eos # (Auto) 0.2, Baso # (Auto) 0.1 01/26/19 08:45: Sodium 137, Potassium 4.4, Chloride 102, Carbon Dioxide 28, Anion Gap 11.4, BUN 17 D, Creatinine 1.45 H D, Estimated Creat Clear 76, Estimated GFR 50 L, Est GFR ( Amer) 60 D, Glucose 105, Calcium 8.0 L Medical History: Reports:: Anxiety, Asthma, Atherosclerotic Heart Disease, Congestive Heart Failure, Congenital Heart Disease, Coronary Artery Disease, Depression, Diabetes Mellitus Type 2, Gastroesophageal Reflux Disease(GERD), Home Oxygen, Hyperlipidemia, Hypertension, Lung Disease, Osteoporosis Denies:: Cancer, Diabetes Mellitus Type 1, Internal Pacemaker, Seizures Assessment and Plan (1) Septic shock Current visit: Yes Status: Acute Category: Medical Code(s): A41.9 - Sepsis, unspecified organism; R65.21 - Severe sepsis with septic shock (2) Anemia Current visit: Yes Status: Acute Qualifiers: Anemia type: unspecified type Qualified Code(s): D64.9 - Anemia, unspecified Category: Medical Code(s): D64.9 - Anemia, unspecified (3) Renal insufficiency Current visit: No Status: Acute Category: Medical Code(s): N28.9 - Disorder of kidney and ureter, unspecified (4) Severe sepsis with acute organ dysfunction Current visit: Yes Status: Acute Category: Medical Code(s): A41.9 - Sepsis, unspecified organism; R65.20 - Severe sepsis without septic shock (5) Obesity (BMI 30-39.9) Current visit: Yes Status: Chronic Category: Medical Code(s): E66.9 - Obesity, unspecified (6) Schizoaffective disorder Current visit: No Status: Chronic Qualifiers: Schizoaffective disorder type: other Qualified Code(s): F25.8 - Other schizoaffective disorders Category: Medical Code(s): F25.9 - Schizoaffective disorder, unspecified (7) Hypothyroidism, unspecified Current visit: No Status: Chronic Qualifiers: Hypothyroidism type: other Qualified Code(s): E03.8 - Other specified hypothyroidism Category: Medical Code(s): E03.9 - Hypothyroidism, unspecified - Assessment and plan all Dx Assessment and Plan for all problems:: BASED ON PATIENT FACTORS, RECOMMEND VANCOMYCIN 1,750MG IV EVERY 24 HOURS. PHARMACY WILL CONTINUE TO MONITOR AND ADJUST DOSE APPROPRIATE. -MAINOR EDWARDS, JENNY
--- OUTSIDE RECORDS SUMMARY | 2019-01-26 15:21 | External Medical Summary | Continuity of Care Document ---
:1960 Author Organization [facility] Address [address] [address] [address] [place] [address] Phone Care Team Providers Name Role Phone Connor Travis Primary Care Provider Provider Primary Care Provider Unavailable Connor Travis Attending Provider Kelle Primary Care Provider Kelle Attending Provider Tegan Attending Provider Eileen Attending Provider Tegan Primary Care Provider Allergies, Adverse Reactions, Alerts Allergen Type Severity Reaction Last Verified Status Updated morphine Allergy Mild "HURTS Yes Active STOMACH" nitroglycerin Allergy Mild Nausea Yes Active Medications Medication Status Dose Units Route Sig Qty Days Start Date End Ins tructions Date Loratadine Active 10 MG Oral Daily March 24, 2017 3:03pm Docusate Sodium Active 250 MG Oral Daily as March 3:03pm Furosemide Active 80 MG Oral Twice a March 3:05pm Atorvastatin Active 40 MG Oral At March bedtime 2017 nightly 3:05pm Spironolactone Active 50 MG Oral Twice a September 9:35am Losartan Active 12.5 MG Oral Daily September 10:44am Magnesium Oxide Active 400 MG Oral At September bedtime 2017 nightly 9:36am Folic Acid Active 0.8 MG Oral Daily September 30, 2017 9:37am Tramadol Hcl Active 50 MG Oral Twice a March 11:09am Isosorbide Active 30 MG Oral Daily March 3:09pm Sennosides Active 8.6 MG Oral Twice a January 8:23pm Olopatadine Hcl Active 1 DRP BOTH Twice a January 8:25pm Aspirin Active 81 MG Oral Daily January 25, 2019 8:04am Loperamide Hcl Active 2 MG Oral Every 4 January hours as 2018 needed 8:04am Acetaminophen Active 500 MG Oral Every 4 October hours 2017 needed 7:49pm Omeprazole Active 20 MG Oral Q48H November 10, 2017 8:05pm Cyanocobalamin Active 750 MCG Oral Daily October (Vitamin B-12) 2017 8:34am Levothyroxine Active 50 MCG Oral Daily October 8:34am Tamsulosin Hcl Active 0.4 MG Oral Daily November 11, 2017 8:34am Trazodone Hcl Active 100 MG Oral At October nightly 8:34am Potassium Active 40 MEQ Oral Twice a October 8:50am Lactulose Active 20 GM Oral Daily as November 6:31pm Mag Active 30 ML Oral Every 20 November Carb/Aluminum hours as 2018 Hydrox/Algin needed 6:31pm Bisacodyl Active 10 MG RECTAL Daily as November 10:56pm Linagliptin Active 5 MG Oral Daily November 17, 2018 10:56pm Multivitamin,Th Active 1 EACH Oral Daily November er And Minerals 2018 10:56pm Aripiprazole Active 15 MG Oral At November bed2018 nightly 9:28am Duloxetine Hcl Active 120 MG Oral Daily November 18, 2018 9:28am Metformin Hcl Active 500 MG Oral Twice November with 9:28am meals Problems Active Problems Medical Problem Onset Date Status Acute subdural hematoma Active Active Impingement syndrome of right Active shoulder Unilateral primary osteoarthritis, Activ e right knee Carpal tunnel syndrome, unspecified Acti ve upper limb Other specified arthritis, multiple Acti ve sites Diabetes 1.5, managed as type 2 Active SOB (shortness of breath) Active Heart failure, unspecified Active Elevated erythrocyte sedimentation Activ e rate Soft tissue disorder, unspecified Active Angina, class II Active Severe sepsis with acute organ Active dysfunction CAD (coronary artery disease) Active Subdural hematoma due to concussion Acti ve Anemia Active Anemia Active Septic shock Active HLD (hyperlipidemia) Active Hypothyroidism, unspecified Active Atherosclerotic heart disease of Active [place] coronary artery without angina pectoris Leucocytosis Active 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 Atypical chest pain Active Muscle weakness (generalized) Active Renal insufficiency Active Schizoaffective disorder Active Typical angina Active Plica syndrome of right knee Active Abnormal EKG Active Chest pain, precordial Active Pain in left wrist Active Subdural hematoma Active Abdominal pain Active HTN (hypertension) Active HHD (hypertensive heart disease) Active Obesity Active Right corneal abrasion Active Obesity (BMI 30-39.9) Active Inactive/Resolved Problems Medical Problem Onset Date Status Rhabdomyolysis Resolved Procedures Procedure Date Performed Status XR chest portable January 24, 2019 completed ECG initial Familia January 24, [address] abdomen pelvis wo con January 25, 2019 completed US gallbladder January 25, 2019 completed XR chest portable January 25, 2019 completed ECG repeat same Familia January 25, 2019 completed Blood Culture January 24, 2019 active Relevant Diagnostic Tests and/or Laboratory Data Laboratory Results Test Date/Time Result Interpretation Reference Result Perfo rming Range Comment Site White Blood January 14.6 K/mm3 4.8-10.8 Delta: 21.9 [facility], [address] [place] [address] 36 E Count 2018 on [place] KHALIL [id number] 8:45am 01/25/19-2129 Red Blood January 2.97 M/mm3 4.60-6.20 [facility], [address] [place] [address] 36 E Count 2018 [place] [address] 8:45am Hemoglobin January 9.6 g/dL 14.1-18.[address] 36 E 2018 [place] K[place] [address] 8:45am Hematocrit Mick 31.1 % 42.0-52.0 [facility], [address] [place] [address] 36 E 2018 [place] K[place] [address] 8:45am Mean Mick 104.8 fl 80-94 [facility], [address] [place] [address] E Corpuscular 2018 Tanika K[place] [address] Volume 8:45am Mean Mick 32.3 pg 27.0-31.2 [facility], [address] [place] [address] E Corpuscular 2018 Tanika KHALIL [address]11 Hemoglobin 8:45am Mean Mick 30.8 g/dL 31.8-35.4 [facility], [address] [place] [address] E Corpuscular 2018 Tanika KHALIL 71823 Hemoglobin 8:45am Concent Red Cell January 14.4 % 11.5-17.5 [facility], [address] [place] [address] E Distribution 2018 [place] KHALIL 59068 Width 8:45am Platelet Count January 356 K/mm3 142-424 [facility], [address] [place] [address] 36 E 2018 [place] K[place] 00952 8:45am Mean Platelet Mick 7.4 fl 7.4-10.4 [facility], [address] [place] [address] E Volume 2018 [place] K[place]IL 40079 8:45am Neutrophils Mick 79.3 % 37.0-80.0 [facility], [address] [place] [address] 36 E (%) (Auto) 2018 Bob KHALIL 05911 8:45am Lymphocytes Mick 13.5 % 10-50 [facility], [address] [place] [address] E (%) (Auto) 2018 Bob KHAL[place] 67758 8:45am Monocytes (%) Mick 5.3 % 1.7-9.3 [facility], [address] [place] [address] 36 E (Auto) 2018 [place] K[place] 657[address] 8:45am Eosinophils Mick 1.3 % 0.1-12.0 [facility], [address] [place] [address] 36 E (%) (Auto) 2018 Bob KHALIL 74043 8:45am Basophils (%) Mick 0.6 % 0.1-2.0 [facility], [address] [place] [address] 36 E (Auto) 2018 [place] SIM[place]AN 67992 8:45am Neutrophils # Mick 11.6 K/mm3 1.8-7.8 [facility], [address] [place] [address] 36 E (Auto) 2018 [place] SIM[place]AN 21553 8:45am Lymphocytes # Mick 2.0 K/mm3 0.7-4.5 [facility], [address] [place] [address] 36 E (Auto) 2018 [place] SIM[place]AN 37222 8:45am Monocytes # Mick 0.8 K/mm3 0.1-1.0 [facility], [address] [place] [address] 36 E (Auto) 2018 [place] SIM[place]AN 59682 8:45am Eosinophils # Mick 0.2 K/mm3 0.0-0.4 [facility], [address] [place] [address] 36 E (Auto) 2018 [place] SIM[place]AN 47458 8:45am Basophils # Mick 0.1 K/mm3 0-0.2 [facility], [address] [place] [address] E (Auto) 2018 [place] SIMRAN 42937 8:45am Differential Mick 100 [facility], [address] [place] [address] 36 E Total Cells 2018 Bob KHALIL 81105 Counted 3:05pm Neutrophils % January 78 % 42-76 [facility], [address] [place] [address] E (Manual) 2018 [place] [address] 3:05pm Band Mick 4.0 0-8 [facility], [address] [place] [address] E Neutrophils % 2018 [place] KHALIL 55578 6:45pm Lymphocytes % Mick 11 % 10-50 [facility], [address] [place] [address] 36 E (Manual) 2018 [place] [address] 3:05pm Monocytes % Mick 9 % 2-9 [facility], [address] [place] [address] E (Manual) 2018 [place] [address] 3:05pm Eosinophils % Mick 2 % 0-3 [facility], [address] [place] [address] 36 E (Manual) 2018 [place] K[place] [address]135 3:05pm Platelet Mick Normal [facility], [address] [place] [address] 36 E Estimate 2018 [place] KHALIL 08703 3:05pm Red Blood Cell Mick Not [facility], [address] [place] [address] 36 E Morphology 2018 Reportable Kathrinsusan angelo SIMRAN [address] 6:45pm Anisocytosis January 17+ [facility], [address] [place] [address] 36 E 2018 [place] K[place]IL 28928 5:29am Macrocytosis January 17+ [facility], [address] [place] [address] 36 E 2018 [place] K[place] 59078 3:05pm Urine Color Mick Yellow Yellow [facility], [address] [place] [address] 36 E 2018 [place] 82141 12:30am Urine Mick Clear Clear [facility], [address] [place] [address] 36 E Appearance 2018 [place] K[place]IL 77904 12:30am Urine pH Mick 5.5 5.0-8.5 [facility], [address] [place] [address] 36 E 2018 [place] K[place] [address]5054 12:30am Urine Specific Mick 1.015 1.005-1.03 [facility], [address] [place] [address] 36 E [place] 2018 0 [place] KHALIL [address]109 12:30am Urine Protein Mick Negative Negative [facility], [address] [place] [address] 36 E 2018 [place] KHALIL 16424 12:30am Urine Glucose Mick Negative Negative [facility], [address] [place] [address] 36 E (UA) 2018 [place] K[place] 49246 12:30am Urine Ketones Mick Negative Negative [facility], [address] [place] [address] 36 E 2018 [place] K[place] 11214 12:30am Urine Blood Mick Negative Negative [facility], [address] [place] [address] 36 E 2018 [place] KHALIL 28926 12:30am Urine Nitrate Mick Negative Negative [facility], [address] [place] [address] 36 E 2018 [place] K[place] 87403 12:30am Urine Mick Negative Negative [facility], [address] [place] [address] 36 E Bilirubin 2018 [place] K[place] 39294 12:30am Urine Mick 0.2 EU/dl [facility], [address] [place] [address] 36 E Urobilinogen 2018 Tanika KHALIL 93551 12:30am Urine Mick Negative Negative [facility], [address] [place] [address] 36 E Leukocyte 2018 [place] K[place] [address]5215 Esterase 12:30am Urine Mick Trace /lpf None [facility], [address] [place] [address] 36 E Amorphous 2018 [place] K[place] 90993 Sediment 12:30am Troponin I January < 0.02 0.00-0.06 *ALERT* [facility], [address] [place] [address] 36 E 2018 ng/ml levels of [place] Jensen 3:05pm Biotin can falsely depress Troponin results.Many dietary supplements promoted for hair,skin, and nail benefits contain biotin levels up to 650 times the recommended daily intake of biotin. In additon to dietary supplements, Biotin is occasionally prescribed for medical conditions. Sodium Level January 137 mmol/L 136-145 [facility], [address] [place] [address] 36 E 2018 [place] K[place] 97477 8:45am Potassium January 4.4 mmoL/L 3.5-5.1 [facility], [address] [place] [address] E Level 2018 [place] KHALIL 11190 8:45am Chloride Level January 102 mmol/L 98-107 [facility], [address] [place] [address] 36 E 2018 [place] K[place] 93035 8:45am Carbon Dioxide January 28 mmol/L 21.0-32.0 [facility], [address] [place] [address] 36 E Level 2018 [place] KHALIL 38236 8:45am Anion Gap January 11.4 mEq/L 5-15 [facility], [address] [place] [address] 36 E 2018 [place] KHAL[place] 17683 8:45am Blood Urea January 17 mg/dL 7-18 Delta: 26 on [facility], [address] [place] [address] 36 E Nitrogen 201801/25/19 Kelli KHALIL 89109 8:45am Creatinine January 1.45 mg/dL 0.70-1.30 Delta: 1.84 [facility], [address] [place] [address] 36 E 2018 on [place] KHALIL 76221 8:45am 01/25/19 Estimated Mick 76 mL/min 0-300 [facility], [address] [place] [address] 36 E Creatinine 2018 Bob KHALIL 02939 Clearance 8:45am Estimated GFR January 60 ML/MIN >59 Delta: 46 on [facility], [address] [place] [address] [address] ( 201801/25/19-2129 Kathrinjenny wagnerantony KHALIL [address] Ethiopian) 8:45am Estimat January 50 ml/min >59 [facility], [address] [place] [address] 36 E Glomerular 2018 Kathrinsusan angelo SIMRAN 28340 Filtration 8:45am Rate Glucose Level January 105 mg/dL 74-106 [facility], [address] [place] [address] 36 E 2018 [place] KHALIL 39830 8:45am Bedside January 113 70-110 Point-of-C ar Glucose 2018 e (RALS) 11:01am Lactate January 0.9 mmol/L 0.4-2.0 [facility], [address] [place] [address] 36 E 2018 [place] K[place] 48474 9:30pm Calcium Level January 8.0 mg/dL 8.5-10.1 [facility], [address] [place] [address] 36 E 2018 Al[place]a KHALIL 97297 8:45am Magnesium January 1.9 mg/dL 1.4-2.2 [facility], [address] [place] [address] 36 E Level 2018 [place] K[place] 93229 5:29am Total Mick 0.3 mg/dL 0.2-1.0 [facility], [address] [place] [address] 36 E Bilirubin 2018 [place] K[place] 66623 6:45pm Direct Mick 0.1 mg/dL 0.0-0.2 [facility], [address] [place] [address] 36 E Bilirubin 2018 [place] K[place] 33642 6:45pm Indirect Mick 0.2 mg/dL 0.0-0.9 [facility], [address] [place] [address] 36 E Bilirubin 2018 [place] KHALIL 81004 6:45pm Aspartate January 14 U/L 15-37 [facility], [address] [place] [address] 36 E Amino Transf 2018 Tanika KHALIL 45375 (AST/SGOT) 6:45pm Alanine January 19 U/L 12-78 [facility], [address] [place] [address] 36 E Aminotransfera 2018 Kelli KHALIL 32901 se (ALT/SGPT) 6:45pm Total Protein January 8.1 gm/dL 6.4-8.2 [facility], [address] [place] [address] 36 E 2018 [place] KHAL[place] 77675 6:45pm Albumin January 3.3 gm/dL 3.4-5.0 [facility], [address] [place] [address] 36 E 2018 [place] KHALIL 08903 6:45pm Alkaline January 89 U/L 46-116 [facility], [address] [place] [address] E Phosphatase 2018 Bob KHALIL 37465 6:45pm Amylase Level January 79 U/L 25-115 [facility], [address] [place] [address] 36 E 2018 [place] KHALIL 59786 6:45pm Lipase January 264 u/L 73-393 [facility], [address] [place] [address] 36 E 2018 [place] KHALIL 89620 9:30pm Arterial Blood Mick 7.38 mmol/L 7.35-7.45 [facility], [address] [place] [address] E pH 2018 [place] SIMRAN 76732 3:20pm Arterial Blood Mick 34.5 mmhg 35.0-45.0 [facility], [address] [place] [address] E Partial 2018 [place] [address] Pressure CO2 3:20pm Arterial Blood Mick 80.1 mmhg 80-100 [facility], [address] [place] [address] E Partial 2018 [place] [address] Pressure O2 3:20pm Arterial Blood Mick 20.0 mmhg 22.0-26.0 [facility], [address] [place] [address] E HCO3 2018 [place] SIMRAN 28647 3:20pm Arterial Blood Mick 21.1 mmhg 23-27 [facility], [address] [place] [address] E Total CO2 2018 [place] SIMRAN 59646 3:20pm Arterial Blood Mick -5.1 mmol/L -2.4-2.3 [facility], [address] [place] [address] E Base Excess 2018 Bob angelo SIMRAN 08485 3:20pm Arterial Blood Mick 95 % 90-100 [facility], [address] [place] [address] E Oxygen 2018 [place] KHALIL 873[address] Saturation 3:20pm [place] Test January Acceptable [facility], [address] [place] [address] E 2018 [place] [address] 3:20pm Blood Gas January Left Respirator y Therapy, [address] [facility] 36 E Specimen 2018 [place] [address] Source 3:20pm Diagnostic Imaging Reports Report Dictated Date/Time Dictated By Status Radiology Report January 24, 2019 Edmar Sifuentes MD completed 6:57pm [address] [place] [id number] [facility] [address] [place] [address] XRay R eport Sig oz Patient: Lalito Blakely MR#: [id number] : 1960 Acct:[id number] Age/Sex: 58 / M ADM Date: 9 Loc: SD Attending Dr: Roney Travis MD Ordering Physician: Viky Lay MD Date of Service: 01/24/19 Procedure(s): XR chest portable Accession Number(s): [id number] cc: Edmar Sifuentes MD; Roney Travis MD~ PROCEDURE: XR CHEST PORTABLE CLINICAL HISTORY: shortness of breath, chest pain COMPARISON: [facility] CT CHEST W/O CONTRAST from 10/16/2016 CXR1VP XR chest portable from 8 CXR1VP XR chest portable from 9 XR CHEST PORTABLE from 11/17/2018 FINDINGS: Cardiomegaly with prominence of the med iastinum which may in part be due to the portable supine technique There is increased density of the left chest compared to the right the which may be technical in nature. No lobar consolidation or collapse. Right hemidiaphragm is sligh tly elevated. No acute bony abnormalities. IMPRESSION: No acute findings. Dictated by: Edmar Sifuentes MD 01/25/2019 04:37 Electronically signed by Edmar Sifuentes in [place] 01/25/2019 04:37 Radiology Report January 25, 2019 Edmar Sifuentes MD completed 12:07am [address] [place] [address] [address] Scan Report Sig oz Patient: Lalito Blakely MR#: [id number] : 1960 Acct:[id number] Age/Sex: 58 / M ADM Date: 9 Loc: 2ND 216SD- Attending Dr: Roney Travis MD Ordering Physician: Roney Travis MD Date of Service: 01/25/19 Procedure(s): CT abdomen pelvis wo con Accession Number(s): [id number] cc: Edmar Sifuentes MD; Roney Travis MD~ PROCEDURE: CT ABDOMEN PELVIS WO CON CLINICAL INDICATION: abd pain Right lower quadrant pain COMPARISON: ABDPELW CT abdomen pelvis w con from 11/11/2017 TECHNIQUE: Axial images obtained with sagittal and coronal reformats. All CT scans at the facility use one or more dose reduction, viz: automated exposure cont rol, ma/kV adjustment per patient size (including targeted exams where dose is matched to indication, i.e. head), or iterative re construction technique. FINDINGS: LOWER THORAX: There are coronary artery calcifications. ABDOMEN & PELVIS: The liver, spleen, pa ncreas, gallbladder, adrenal glands, and kidneys show no acute findi ng. No intestinal obstruction or free air. No evidence of appendicit is or diverticulitis. There is mild the distention the urinary blad whit. Abdominal wall tacks are present inferiorly. No acute bony find ings. There is thoracolumbar curvature convex right. IMPRESSION: Mild distention of the urinary bladder otherwise negative CT abdomen pelvis Dictated by: Edmar Sifuentes MD 01/25/2019 05:08 Electronically signed by Edmar Sifuentes in [place] 01/25/2019 05:08 Radiology Report January 25, 2019 Edmar Sifuentes MD completed 9:12am [facility] [address] [place] [facility] [address] [place] [address] Ultrasoun d Report Sig oz Patient: Lalito Blakely MR#: [id number] : 1960 Acct:[id number] Age/Sex: 58 / M ADM Date: 9 Loc: Attending Dr: Roney Travis MD Ordering Physician: Roney Travis MD Date of Service: 01/25/19 Procedure(s): US gallbladder Accession Number(s): [id number] cc: Edmar Sifuentes MD; Roney Travis MD~ PROCEDURE: US GALLBLADDER CLINICAL INDICATION: abd pain Abdominal pain with nausea COMPARISON: CT ABDOMEN PELVIS WO CON f rom 01/25/2019 FINDINGS: Pancreas: Unremarkable/Not well seen Liver: Fatty liver. No focal liver les ions demonstrated.. There is appropriate direction of blood flow wit hin a non dilated portal vein. Right kidney: Unremarkable appearing. N o hydronephrosis. Gallbladder: No stones are evident. Th ere is no gallbladder wall thickening. Common duct is normal in di ameter. IMPRESSION: Negative gallbladder ultrasound. No st ones evident. Dictated by: Edmar Sifuentes MD 01/25/2019 09:38 Electronically signed by Edmar Sifuentes in [place] 01/25/2019 09:38 Radiology Report January 25, 2019 Luke Chau MD completed 3:29pm [facility] [address] [place] [address] [place] [address] XRay R eport Sig oz Patient: Lalito Blakely MR#: [id number] : 1960 Acct:[id number] Age/Sex: 58 / M ADM Date: 9 Loc: 2ND 216SD-[address]: Roney Travis MD Ordering Physician: Roney Travis MD Date of Service: 01/25/19 Procedure(s): XR chest portable Accession Number(s): [id number] cc: Luke Chau MD; Roney Travis MD ~ PROCEDURE: XR CHEST PORTABLE CLINICAL HISTORY: Shortness of breath COMPARISON: [facility] CT CHEST W/O CONTRAST from 10/16/2016 CXR1VP XR chest portable from 9 XR CHEST PORTABLE from 11/17/2018 XR CHEST PORTABLE from 01/24/2019 FINDINGS: The cardiomediastinal silhouette and pu lmonary vascularity are within normal limits. The lungs are clear without infiltrates , suspicious nodules, or pleural effusions. No acute bony abnormalities. IMPRESSION: No acute findings. Dictated by: Luke Chau 01/25/2019 15:42 Electronically signed by Luke Chau in [place] 01/25/2019 15:42 Advance Directives Advance Directive Response Recorded Date/Time Living Will No November 17, 2018 8: 02pm Living Will No January 25, 2019 1 :51am Chief Complaint and Reason for Visit Chief Complaint eye pain chest pain cath f/u from second floor SOB r06.02 cws Monthly Check-up Yearly H&P 1 month Sepsis,Organ Dysfunction Reason for Visit Anemia Obesity (BMI 30-39.9) Abnormal EKG Chest pain, precordial Renal insufficiency Typical angina Diabetes 1.5, managed as typ e 2 HTN (hypertension) Anemia Septic shock Severe sepsis with acute org an dysfunction Obesity (BMI 30-39.9) Encounters Encounter Location(s) Arrival/Admit Date Discharge/Depart Date Provider(s) Departed [facility] Physician November 04, November 04, 2018 nu l Emergency Group-Emergency 2018 3:33am 4:02am Room Registered [facility] Physician November 17, 2018 Roney Ryan Inpatient Group-Primary 7:57pm MD Angy Care-Angy Registered [facility] Physician November 19, 2018 [facility]-Cardiology 11:59pm MD Kelle -[place] Departed [facility] Physician December 02, 2018 December 02, 2018 Jose Alejandro earl Physician/Provi Group-Cardiology 10:06am 3:30pm Ron Benítez whit Office -[place] , [employer]SERV[employer]LYST Visit Registered [facility] Physician December 09, 2018 [facility]-Respirator 10:52am Alfredo cook Therapy , [employer]Y ANALYST Registered [facility] Physician 2018 Nahum Arellano Inpatient Group-Nursing 11:59pm , [employer]SERV[employer]Y ANALYST [place] Registered [facility] Physician January 05, Roney Ryan Inpatient Group-Nursing 2018 11:59pm MD Angy [facility] Departed [facility] Physician January 06, January 06, 2019 Brad ornelas Physician/Provi Group-Cardiology 2018 10:37am 11:31am Ron Benítez whit Office -[place] , [employer]Y ANALYST Visit Admitted [facility] Physician January 25, 2019 Roney Ryan Inpatient Group-Second 5:00pm MD Angy Floor Registered [facility] Physician January 26, Roney Ryan Inpatient Group- 2019 2:58pm MD Angy Recent Diagnosis Onset Date Anemia Obesity (BMI 30-39.9) Abnormal EKG Chest pain, precordial Renal insufficiency Typical angina Diabetes 1.5, managed as type 2 HTN (hypertension) Anemia Septic shock Severe sepsis with acute organ dysfunction Obesity (BMI 30-39.9) Assessments See care plan goals Functional Status Observation Response Date Recorded Oral Care Ability With Assistance January 25, 2019 1 :51am Bathing Ability Assistance x2 January 25, 2019 1 :51am Eating (Feeding) Ability Independent January 25 019 1:51am Toileting Ability Assistance X2 January 25, 2019 1 :51am Ambulation Ability Total Dependance January 25, 2019 1 :51am Functional status high risk for fracture December 26 9 5:15pm Oral Care Ability Needs Supervision December 26, 2018 5 :15pm Bathing Ability Assistance x2 December 26, 2018 5 :15pm Eating (Feeding) Ability Independent December 26 2 019 5:15pm Toileting Ability Unable/Dependant December 26, 2018 5 :15pm Ambulation Ability Total Dependance December 26, 2018 5 :15pm Functional status ambulatory January 06, 2019 11:37am Functional status ambulatory December 02, 2018 3 :11pm Goals Acute Goals Nursing Diagnosis: Knowledge Deficit D isease/Condition Goal(s): Education of di sease process Instruction(s): Follow provider p ani/instructions (See attached discharge education) Follow/up with primary care provider as instructed in discharge packet Nursing Diagnosis: Knowledge Deficit D isease/Condition Goal(s): Education of di sease process Instruction(s): Follow provider p ani/instructions (See attached discharge education) Follow/up with primary care provider as instructed in discharge packet Ambulatory Goals Patient verbalizes understanding of dise ase process. Patient to follow plan of care. Education provided. Immunizations Immunization Event Date Not Given Dose Chief Technologist Lot Vac cine Reason Number Number Informatio n Statement (VIS) Deta il Fluzone Quad December 6-35 Months 2016 Influenza, December unspecified 2016 formulation Mental Status Observation Response Date Recorded Comprehension Ability No Impairment January 26 1:00pm Able to Read Yes January 25, 2019 1 :51am Able to Write Yes January 25, 2019 1 :51am Ability to Follow Directions Excellent January 1:51am Eye Contact Direct Eye Contact January 25, 2019 1 :51am Oral Expression Ability No Impairment January 25 1:51am Medical Equipment No Medical Equipment Information available Insurance Providers Guarantor Lalito Blakely Address [address] [place] [address] Contact Info. Home Phone: Payer Policy Id Coverage Id Subscriber's Subscriber Effective Expi ration Name Id Date Date Medicaid [id number] Lalito [id number] Reddy Medicare [id number] Lalito [id number] May 18 Theodosis 2009 Medicare B [id number] Lalito [id number] Theodosis Self Pay Self N/A Plan of Treatment Follow up as ordered by PCP continue all care Future Tests Future scheduled test information is unavailable Pending Tests Pending diagnostic test information is unavailable Future Visits Future appointment information is unavailable Referrals to Other Providers Reason for Referral Start Provider Provider Contact Provider Address Referral Date Information Admission to [facility] January [id number] [facility] [place] Work Phone: [phone] [place] [phone] Future Procedures Future procedure information is unavailable Future Medications Future medication information is unavailable Patient Instructions DI for Corneal Abrasion DI for Eye Pain Angina DI for Angina DI for Cardiac Catheterization DI for Surgical Site Infection DI for Chest Pain How to Take Care of Your Feet If You Hav e Diabetes High Triglycerides Chronic Obstructive Pulmonary Disease Heart Failure Coronary Artery Disease Essential Hypertension Heart-Healthy Diet Balanced Diet Fat-Restricted Diet Effectiveness of Diets for Weight Loss How to Count Respirations Respiratory Failure Osteoarthritis Kidney Failure Hypothyroidism High Triglycerides Type 2 Diabetes Heart Failure Coronary Artery Disease Anemia Essential Hypertension Heart-Healthy Diet Balanced Diet Fat-Restricted Diet Effectiveness of Diets for Weight Loss DI for Arthritis High Triglycerides Type 2 Diabetes Chronic Obstructive Pulmonary Disease Heart Failure Coronary Artery Disease Essential Hypertension Heart-Healthy Diet Balanced Diet Fat-Restricted Diet Effectiveness of Diets for Weight Loss How to Count Respirations Respiratory Failure Sepsis Septic Shock Anemia DI for Sepsis -- Adult Social History Assigned Sex Male Vital Signs Vital Reading Result Reference Range Collection Date/ Time Height 157.48 cm November 04, 2018 3:33am Weight 94.80 kg November 04, 2018 3:33am Body Temperature 97.9 [degF] 97.6-99.6 November 04, 2018 4:01am Heart Rate 91 /min 60-90 November 04, 2018 4:01am Respiratory rate 17 /min 12-24 November 04, 2018 4:01am Oxygen saturation by 99 % 95-100 October 182018 Pulse oximetry 3:33am BP Systolic 113 mm[Hg] 110-140 November 04, 2018 4:01am BP Diastolic 65 mm[Hg] 60-90 November 04, 2018 4:01am BMI (Body Mass Index) 38.2 kg/m2 November 04, 2018 3:33am Height 157 cm November 20 201 9 5:00am Weight 88.67 kg November 20 201 9 5:00am Body Temperature 98.0 [degF] 97.6-99.6 November 20 8:36am Heart Rate 81 /min -November 20, 201 9 8:36am Respiratory rate 22 /min -November 20 8:36am Oxygen saturation by 91 % 95-100 November Pulse oximetry 8:36am BP Systolic 100 mm[Hg] 110-140 November 20, 201 9 8:36am BP Diastolic 64 mm[Hg] 60-November 20, 9 8:36am BMI (Body Mass Index) 35.9 kg/m2 November 5:00am Height 154.94 cm December 02 11:04am Weight 92.07 kg December 02 11:04am Heart Rate 109 /min -December 02 11:04am Oxygen saturation by 96 % 95-100 November Pulse oximetry 11:04am BP Systolic 95 mm[Hg] 110-140 December 02 11:04am BP Diastolic 65 mm[Hg] 60-December 02 11:04am BMI (Body Mass Index) 38.3 kg/m2 December 022018 11:04am Height 154.94 cm January 06, 2 019 11:14am Weight 90.71 kg January 06, 019 11:14am Heart Rate 107 /min -January 06, 2 019 11:14am Oxygen saturation by 98 % 95-100 January 062018 Pulse oximetry 11:14am BP Systolic 105 mm[Hg] 110-140 January 06, 2 019 11:14am BP Diastolic 65 mm[Hg] 60-90 January 06, 2 019 11:14am BMI (Body Mass Index) 37.8 kg/m2 December 192018 11:14am Height 163 cm January 26, 2 019 5:00am Weight 98.88 kg January 26, 2 019 5:00am Body Temperature 98.1 [degF] 97.6-99.6 January 26, 2019 7:49am Heart Rate 91 /min January 26, 2 019 1:00pm Respiratory rate 20 /min 02-09January 26, 2019 1:00pm Oxygen saturation by 98 % 95-100 January 262018 Pulse oximetry 1:00pm BP Systolic 109 mm[Hg] 110-140 January 26 1:00pm BP Diastolic 59 mm[Hg] 60-90 January 26 1:00pm BMI (Body Mass Index) 37.2 kg/m2 January 172018 5:00am Hospital Discharge Instructions Additional Instructions Erythromycin ointment to right eye 3 times a day for 3 days. Follow-up with Dr. Travis if not improved in 1 to 2 days. Additional instructions for EYE PAIN or INJURY: Return to the emergency department or see an eye doctor if severe pain, loss of vision, pus drainage, severe swelling or redness of eyelids.
--- NOTE | 2019-01-26 17:41 | Electrocardiograph Report ---
APPROVED REPORT Exam: Resting ECG HR:94 bpm ECG Measurements Heart Rate 94 AXES MA 160 P 39 QRSd 80 QRS 72 QT 320 T45 QTc 400 <Conclusion> Normal sinus rhythm Low voltage QRS Borderline ECG Electronically signed by : Braulio Barbosa, 01/26/2019 17:40:54
--- NOTE | 2019-01-26 17:49 | Electrocardiograph Report ---
APPROVED REPORT Exam: Resting ECG HR:101 bpm ECG Measurements Heart Rate 101 AXES NJ 164 P 47 QRSd 82 QRS 80 QT 306 T20 QTc 396 <Conclusion> Sinus tachycardia Otherwise normal ECG Electronically signed by : Brualio Barbosa, 01/26/2019 17:48:54
--- NOTE | 2019-01-27 05:37 | Cardiology Report ---
APPROVED REPORT EXAM: Comprehensive 2D, Doppler, and color-flow Echocardiogram Laboratory Cureman: Heidi Gomez CRT Ht: 5 ft 4 in Wt: 219lbs BSA: 2.03 BP: 125/59 mmHg Indications: sepsis, sob, cough, asthma, chf, cad, gerd, home o2, stent, sleep apnea 2D Dimensions LVOT 2.16 cm (M/F) 1.5-2.5 M-Mode Dimensions RVDd 1.64 cm (0.9-2.6)LVDd 3.83 cm (3.5-5.7) LVDs 2.75 cm (3.5-5.7)IVSd 1.58 cm (0.6-1.1) PWd 0.75 cm (0.6-1.1)EF (Teich) 55.20% FS 28.20% EDV (Teich) 63.10 mL ESV (Teich) 28.30 mL LV Diastology E/A Ratio 1.43 Mitral Valve MV A Velocity 69.00 (40-130 cm/s) Left Ventricle Left atrium is mildly enlarged, left ventricle is normal size, mild concentric left ventricular hypertrophy, visually estimated ejection fraction 50% with no regional wall motion abnormality, endocardial surfaces are very poorly visualized, repeat a study with Definity contrast is recommended. Diastolic parameters are inconclusive. Right Ventricle Right atrium and right ventricular normal size and contractility. Aortic Valve Aortic valve is minimally thickened and fibrosed, there is no aortic stenosis or aortic insufficiency. Mitral Valve Mitral valve is grossly normal, there is no mitral stenosis, there is mild mitral regurgitation. Tricuspid Valve Tricuspid valve is grossly normal, there is mild tricuspid regurgitation. Tricuspid regurgitation jet velocity is inadequate for calculation of the right ventricular systolic pressure. Pulmonic Valve Pulmonic valve is poorly visualized. Great Vessels Aortic root is normal size. Pericardium No significant pericardial effusion noted. Conclusion 1. Mildly enlarged left atrium, normal left ventricular size, mild concentric left ventricular hypertrophy, visually estimated ejection fraction 50% with no regional wall motion abnormality, diastolic parameters are inconclusive. Endocardial surfaces are very poorly visualized, repeat study with Definity contrast is recommended. 2. Mild mitral and tricuspid regurgitation. 3. No significant pericardial effusion noted. Electronically signed by : Jackson Ramírez, 01/27/2019 05:36:59
[2019-01-27 06:25] LABS: Basophils # 0.1 K/mm3 (0-0.2); Basophils % 0.5 % (0.1-2.0); Eosinophils # 0.3 K/mm3 (0.0-0.4); Hematocrit 30.8 % (42.0-52.0); Hemoglobin 9.8 g/dL (14.1-18.0); Lymphocytes # 2.1 K/mm3 (0.7-4.5); Lymphocytes % 14.6 % (10-50); Mean Corpuscular HGB Conc 31.9 g/dL (31.8-35.4); Mean Corpuscular Volume 103.2 fl (80-94); Mean Platelet Volume 8.3 fl (7.4-10.4); Monocytes # 0.8 K/mm3 (0.1-1.0); Monocytes % 5.4 % (1.7-9.3); Neutrophils # 11.2 K/mm3 (1.8-7.8); Neutrophils % 77.5 % (37.0-80.0); Platelet Count 350 K/mm3 (142-424); Red Blood Count 2.98 M/mm3 (4.60-6.20); Red Cell Distribution Width 14.4 % (11.5-17.5); White Blood Count 14.5 K/mm3 (4.8-10.8)
[2019-01-27 06:47] LABS: Anion Gap 11.9 mEq/L (5-15); Calcium 8.7 mg/dL (8.5-10.1)
--- NOTE | 2019-01-27 12:18 | Progress Note ---
Internal Medicine - PN: Subj *Date: 01/27/19 *Time: 08:30 Interval history: more alert - doing better Exam Vital signs and Labs for Last 24 Hours: Temp Pulse Resp BP Pulse Ox 98.1 F 91 H 20 86/56 L 98 01/27/19 12:00 01/27/19 12:00 01/27/19 12:00 01/27/19 12:00 01/27/19 12:00 Laboratory Results - last 24 hr 01/26/19 16:22: POC Glucose 149 H 01/26/19 21:58: POC Glucose 94 01/27/19 05:12: POC Glucose 108 01/27/19 05:50: WBC 14.5 H, RBC 2.98 L, Hgb 9.8 L, Hct 30.8 L, MCV 103.2 H, MCH 32.9 H, MCHC 31.9, RDW 14.4, Plt Count 350, MPV 8.3, Neut % (Auto) 77.5, Lymph % (Auto) 14.6, [place] % (Auto) 5.4, Eos % (Auto) 2.0, Baso % (Auto) 0.5, Neut # (Auto) 11.2 H, Lymph # (Auto) 2.1, [place] # (Auto) 0.8, Eos # (Auto) 0.3, Baso # (Auto) 0.1 01/27/19 05:50: Sodium 136, Potassium 3.9, Chloride 99, Carbon Dioxide 29, Anion Gap 11.9, BUN 14, Creatinine 1.26, Estimated Creat Clear 87, Estimated GFR 58 L, Est GFR ( Amer) 71, Glucose 101, Calcium 8.7 01/27/19 11:14: POC Glucose 118 H I & O for Last 24 hours: Intake & Output 01/25/19 01/26/19 01/27/19 01/28/19 11:59 11:59 11:59 11:59 Intake Total 0 / 0 4569 / 4569 1803 / 1803 Output Total 4170 / 4170 480 / 480 450 / 450 Balance 0 / 0 399 / 399 1323 / 1323 -450 / -450 Weight 219 lb 15.988 oz 218 lb 218 lb Microbiology Reports for the Last 24 Hours: Microbiology 01/24/19 18:45 Blood Blood Culture - Preliminary NO GROWTH AFTER 48 HOURS 01/24/19 18:45 Blood Blood Culture - Preliminary NO GROWTH AFTER 48 HOURS - Constitutional no acute distress - *Routine HEENT Exam Head: Present: normocephalic Eye: Present: EOMI, PERRL ENT: Present: mucous membranes dry - *Routine Neck Exam Absent: JVD - *Routine Respiratory Exam Present: decreased breath sounds - *Routine Cardiovascular Exam Present: RRR - *Routine Abdominal Exam Present: soft - *Routine Extremities Exam Present: full ROM - *Routine Skin Exam Present: intact - *Routine Neurological Exam Present: alert, oriented X3, CN II-XII intact - Routine Psychiatric Exam Present: normal affect Assessment and Plan (1) Septic shock Current visit: Yes Status: Acute Category: Medical Code(s): A41.9 - Sepsis, unspecified organism; R65.21 - Severe sepsis with septic shock (2) Anemia Current visit: Yes Status: Acute Qualifiers: Anemia type: unspecified type Qualified Code(s): D64.9 - Anemia, unspecified Category: Medical Code(s): D64.9 - Anemia, unspecified (3) Renal insufficiency Current visit: No Status: Acute Category: Medical Code(s): N28.9 - Disorder of kidney and ureter, unspecified (4) Severe sepsis with acute organ dysfunction Current visit: Yes Status: Acute Category: Medical Code(s): A41.9 - Sepsis, unspecified organism; R65.20 - Severe sepsis without septic shock (5) Obesity (BMI 30-39.9) Current visit: Yes Status: Chronic Category: Medical Code(s): E66.9 - Obesity, unspecified (6) Schizoaffective disorder Current visit: No Status: Chronic Qualifiers: Schizoaffective disorder type: other Qualified Code(s): F25.8 - Other schizoaffective disorders Category: Medical Code(s): F25.9 - Schizoaffective disorder, unspecified (7) Hypothyroidism, unspecified Current visit: No Status: Chronic Qualifiers: Hypothyroidism type: other Qualified Code(s): E03.8 - Other specified hypothyroidism Category: Medical Code(s): E03.9 - Hypothyroidism, unspecified
[2019-01-28 06:11] LABS: Basophils # 0.1 K/mm3 (0-0.2); Basophils % 0.4 % (0.1-2.0); Eosinophils # 0.3 K/mm3 (0.0-0.4); Eosinophils % 2.5 % (0.1-12.0); Hematocrit 30.1 % (42.0-52.0); Hemoglobin 9.7 g/dL (14.1-18.0); Lymphocytes # 1.6 K/mm3 (0.7-4.5); Lymphocytes % 11.8 % (10-50); Mean Corpuscular HGB Conc 32.3 g/dL (31.8-35.4); Mean Corpuscular Volume 99.6 fl (80-94); Monocytes # 0.5 K/mm3 (0.1-1.0); Monocytes % 3.9 % (1.7-9.3); Neutrophils % 81.5 % (37.0-80.0); Platelet Count 336 K/mm3 (142-424); Red Blood Count 3.03 M/mm3 (4.60-6.20); Red Cell Distribution Width 14.1 % (11.5-17.5); White Blood Count 13.5 K/mm3 (4.8-10.8)
[2019-01-28 08:13] LABS: Anion Gap 15.9 mEq/L (5-15); Calcium 8.2 mg/dL (8.5-10.1)
--- NOTE | 2019-01-28 09:40 | Discharge Summary ---
General - General Admission date:: 01/25/19 Discharge date: 01/28/19 HPI HPI: this pt was sent from [facility] with not feeling well with slight nonproductive cough and rt sided abd pain - pt is a poor historian - pt was seen in the ed and meet criteria for severe sepsis with organ dysfunction and septic shock as lactate elevated - he was given ivf and Hospital Course Hospital Course: 01/24:chest x ray:FINDINGS: Cardiomegaly with prominence of the mediastinum which may in part be due to the portable supine technique There is increased density of the left chest compared to the right the which may be technical in nature. No lobar consolidation or collapse. Right hemidiaphragm is slightly elevated. No acute bony abnormalities. IMPRESSION: No acute findings. ct abd pelvis:FINDINGS: LOWER THORAX: There are coronary artery calcifications. ABDOMEN & PELVIS: The liver, spleen, pancreas, gallbladder, adrenal glands, and kidneys show no acute finding. No intestinal obstruction or free air. No evidence of appendicitis or diverticulitis. There is mild the distention the urinary bladder. Abdominal wall tacks are present inferiorly. No acute bony findings. There is thoracolumbar curvature convex right. IMPRESSION: Mild distention of the urinary bladder otherwise negative CT abdomen pelvis gallbladder us: neg 01/26/19 chest x ray:FINDINGS: The cardiomediastinal silhouette and pulmonary vascularity are within normal limits. The lungs are clear without infiltrates, suspicious nodules, or pleural effusions. No acute bony abnormalities. IMPRESSION: No acute findings. echo:Conclusion 1. Mildly enlarged left atrium, normal left ventricular size, mild concentric left ventricular hypertrophy, visually estimated ejection fraction 50% with no regional wall motion abnormality, diastolic parameters are inconclusive. Endocardial surfaces are very poorly visualized, repeat study with Definity contrast is recommended. 2. Mild mitral and tricuspid regurgitation. 3. No significant pericardial effusion noted. Urine and blood cultures show no growth White blood cells continue to trend down. Patient will be discharged back to [facility] today and continue out Omnicef twice daily for 5 more days. Patient will remain on fluid restrictions while at [facility]. Today patient sitting up in bed states he feels well and eager to go back to [facility]. Objective Vital signs: Temp Pulse Resp BP Pulse Ox 98.0 F 85 18 102/52 L 98 01/28/19 07:46 01/28/19 07:46 01/28/19 07:46 01/28/19 07:46 01/28/19 07:46 no acute distress, morbidly obese, obese, chronically ill appearing - *Routine HEENT Exam Head: Present: normocephalic, scalp tenderness ENT: Present: mucous membranes moist - *Routine Neck Exam Present: full ROM - *Routine Respiratory Exam Present: decreased breath sounds, CTA bilaterally, wheezes - *Routine Cardiovascular Exam Present: RRR - *Routine Abdominal Exam Present: soft, normoactive bowel sounds, obese - *Routine Extremities Exam Present: full ROM - *Routine Skin Exam Present: intact - *Routine Neurological Exam Present: alert, oriented X3 - Routine Psychiatric Exam Present: normal affect Results Labs on day of discharge: Labs from last 24 hours 01/28/19 01/28/19 01/28/19 06:02 05:52 05:52 WBC 13.5 H RBC 3.03 L Hgb 9.7 L Hct 30.1 L MCV 99.6 H MCH 32.1 H MCHC 32.3 RDW 14.1 Plt Count 336 MPV 8.0 Neut % (Auto) 81.5 H Lymph % (Auto) 11.8 [place] % (Auto) 3.9 Eos % (Auto) 2.5 Baso % (Auto) 0.4 Neut # (Auto) 11.0 H Lymph # (Auto) 1.6 [place] # (Auto) 0.5 Eos # (Auto) 0.3 Baso # (Auto) 0.1 Sodium 137 Potassium 3.9 Chloride 98 Carbon Dioxide 27 Anion Gap 15.9 H BUN 19 H D Creatinine 1.33 H Estimated Creat Clear 77 Estimated GFR 55 L Est GFR ( Amer) 66 Glucose 103 POC Glucose 119 H Calcium 8.2 L 01/27/19 01/27/19 01/27/19 21:36 16:06 11:14 WBC RBC Hgb Hct MCV MCH MCHC RDW Plt Count MPV Neut % (Auto) Lymph % (Auto) [place] % (Auto) Eos % (Auto) Baso % (Auto) Neut # (Auto) Lymph # (Auto) [place] # (Auto) Eos # (Auto) Baso # (Auto) Sodium Potassium Chloride Carbon Dioxide Anion Gap BUN Creatinine Estimated Creat Clear Estimated GFR Est GFR ( Amer) Glucose POC Glucose 99 99 118 H Calcium Preliminary micro results at discharge 01/24/19 18:45 Blood Culture - Preliminary Blood NO GROWTH AFTER 48 HOURS 01/24/19 18:45 Blood Culture - Preliminary Blood NO GROWTH AFTER 48 HOURS - Additional Comments rounded with Dr Huerta all orders per Dr huerta DS: Diagnosis - Discharge Diagnosis (1) Septic shock Status: Acute (2) Anemia Status: Acute (3) Renal insufficiency Status: Acute (4) Severe sepsis with acute organ dysfunction Status: Acute (5) Obesity (BMI 30-39.9) Status: Chronic (6) Schizoaffective disorder Status: Chronic (7) Hypothyroidism, unspecified Status: Chronic Discharge Plan - Patient Discharge Instructions ACTIVITY: Continue current activity DIET: continue same diet Patient Instructions: Sepsis, Septic Shock, Anemia, DI for Sepsis -- Adult - Follow up Plan Disposition: [facility] Home Medications: Home Medications Medication Instructions Recorded Confirmed Type atorvastatin 40 mg tablet 40 mg PO HS 03/24/17 01/25/19 History docusate sodium 250 mg capsule 250 mg PO DAILYP PRN 03/24/17 01/25/19 History furosemide 80 mg tablet 80 mg PO BID tab 03/24/17 01/25/19 History loratadine 10 mg tablet 10 mg PO DAILY 03/24/17 01/25/19 History isosorbide mononitrate ER 30 mg 30 mg PO DAILY 04/11/17 01/25/19 History tablet,extended release 24 hr folic acid 0.8 mg capsule 0.8 mg PO DAILY 09/30/17 01/25/19 History magnesium 400 mg (as magnesium 400 mg PO HS cap 09/30/17 01/25/19 History oxide) capsule spironolactone 50 mg tablet 50 mg PO BID tab 09/30/17 01/25/19 History Acetaminophen 500 mg PO Q4HP PRN 11/10/17 01/24/19 History Omeprazole [Omeprazole 20mg 20 mg PO Q48H 11/10/17 01/25/19 History Capsule] Cyanocobalamin (Vitamin B-12) 750 mcg PO DAILY 11/11/17 01/25/19 History [Vitamin B-12] Levothyroxine Sodium 50 mcg PO DAILY 11/11/17 01/25/19 History [Levothyroxine 50mcg (0.05mg) Tab] Potassium Chloride [Klor-con 20 40 meq PO BID 11/11/17 01/25/19 History mEq tablet] Tamsulosin HCl [Flomax 0.4mg 0.4 mg PO DAILY 11/11/17 01/25/19 History capsule] Trazodone HCl 100 mg PO HS 11/11/17 01/25/19 History tramadol 50 mg tablet 50 mg PO BID tab 03/31/18 01/25/19 History losartan 25 mg tablet 12.5 mg PO DAILY tab 09/29/18 01/25/19 History Bisacodyl [Bisacodyl 10mg Supp] 10 mg RC DAILYP PRN 11/17/18 01/24/19 History Lactulose [Lactulose 10gm/15ml 20 gm PO DAILYP PRN 11/17/18 01/25/19 History Oral Soln] Linagliptin [Tradjenta 5mg tablet] 5 mg PO DAILY 11/17/18 01/25/19 History Mag Carb/Aluminum Hydrox/Algin 30 ml PO Q4HP PRN 11/17/18 01/25/19 History [Acid Gone Antacid Liquid] Multivitamin,Ther and Minerals 1 each PO DAILY 11/17/18 01/25/19 History [Vitamin and Minerals] ARIPiprazole [Aripiprazole 15mg 15 mg PO HS 11/18/18 01/25/19 History Tablet] Duloxetine HCl 120 mg PO DAILY 11/18/18 01/25/19 History Metformin HCl 500 mg PO BIDWM 11/18/18 01/25/19 History Olopatadine HCl [Patanol] 1 drp OU BID 01/24/19 01/25/19 History Sennosides [Senna] 8.6 mg PO BID 01/24/19 01/25/19 History Aspirin [Aspirin 81mg chewable 81 mg PO DAILY 01/25/19 01/25/19 History tab] Loperamide HCl [Anti-Diarrheal] 2 mg PO Q4HP PRN 01/25/19 01/25/19 History Cefdinir [Omnicef 300mg Capsule] 300 mg PO BID 5 Days #10 cap 01/28/19 Rx Prescriptions/Medication Reconciliation: New Cefdinir [Omnicef 300mg Capsule] 300 mg PO BID 5 Days #10 cap Continued docusate sodium 250 mg capsule 250 mg PO DAILYP PRN PRN Reason: Constipation furosemide 80 mg tablet 80 mg PO BID tab atorvastatin 40 mg tablet 40 mg PO HS spironolactone 50 mg tablet 50 mg PO BID tab magnesium 400 mg (as magnesium oxide) capsule 400 mg PO HS cap tramadol 50 mg tablet 50 mg PO BID tab losartan 25 mg tablet 12.5 mg PO DAILY tab loratadine 10 mg tablet 10 mg PO DAILY isosorbide mononitrate ER 30 mg tablet,extended release 24 hr 30 mg PO DAILY folic acid 0.8 mg capsule 0.8 mg PO DAILY Acetaminophen 500 mg PO Q4HP PRN PRN Reason: PAIN/FEVER Trazodone HCl 100 mg PO HS Levothyroxine Sodium [Levothyroxine 50mcg (0.05mg) Tab] 50 mcg PO DAILY Cyanocobalamin (Vitamin B-12) [Vitamin B-12] 750 mcg PO DAILY Lactulose [Lactulose 10gm/15ml Oral Soln] 20 gm PO DAILYP PRN PRN Reason: Constipation Multivitamin,Ther and Minerals [Vitamin and Minerals] 1 each PO DAILY Linagliptin [Tradjenta 5mg tablet] 5 mg PO DAILY Duloxetine HCl 120 mg PO DAILY Metformin HCl 500 mg PO BIDWM Aspirin [Aspirin 81mg chewable tab] 81 mg PO DAILY Loperamide HCl [Anti-Diarrheal] 2 mg PO Q4HP PRN PRN Reason: Diarrhea Omeprazole [Omeprazole 20mg Capsule] 20 mg PO Q48H Tamsulosin HCl [Flomax 0.4mg capsule] 0.4 mg PO DAILY Potassium Chloride [Klor-con 20 mEq tablet] 40 meq PO BID Mag Carb/Aluminum Hydrox/Algin [Acid Gone Antacid Liquid] 30 ml PO Q4HP PRN PRN Reason: Indigestion Bisacodyl [Bisacodyl 10mg Supp] 10 mg RC DAILYP PRN PRN Reason: Constipation ARIPiprazole [Aripiprazole 15mg Tablet] 15 mg PO HS Sennosides [Senna] 8.6 mg PO BID Olopatadine HCl [Patanol] 1 drp OU BID - Problem Reconciliation Problems Reviewed?: Yes
== END 2019-01-28 12:30 | DRG 871 ==
LOC: ER 18:30 → 2ND 18:30
PROVIDERS: ADMIT Emergency Medicine; ATTEND Emergency Medicine
CPT/HCPCS: 36415; 71010; 71045; 74176; 76705; 80048; 80076; 81001; 82150; 82803; 82962; 83605; 83690; 83735; 84484; 85007; 85025; 87040; 93005; 93306; 94640; 94761; 96365; 96366; 96375; 97162; 97530; 99285; J1335; J3370

== ENCOUNTER → 2019-11-12 08:19 | Outpatient (CLI) | payer MEDICARE, MEDICAID, SELFPAY ==
--- NOTE | 2019-11-12 08:25 | XR_ITS ---
PROCEDURE: XR SHOULDER LT MIN 2V CLINICAL INDICATION: Left shoulder pain COMPARISON: [id number] from 05/30/[address] CHEST W/O CONTRAST from 10/16/2016 CR XR CHEST PORTABLE from 01/25/2019 FINDINGS: There are mild osteoarthritic changes of the glenohumeral joint. No definite fracture or dislocation is evident. There is a small focus of increased density along the superior aspect of the glenoid suspicious for loose body measuring 7 mm. No fracture or dislocation. IMPRESSION: Osteoarthritis with suspected small loose body in the supra glenoid region Dictated by: Edmar Sifuentes MD 11/12/2019 16:35 Edmar Sifuentes MD in [place] 11/12/2019 16:35
== END ==
PROVIDERS: PCP Emergency Medicine; Visit Provider Orthopaedic Surgery
DX: M25.512 Pain in left shoulder (principal)
CPT/HCPCS: 73030

== ENCOUNTER 2020-01-22 06:15 | Emergency (ER) | payer MEDICARE, MEDICAID, SELFPAY ==
[2020-01-22 05:56] VITALS: BP 134/72; PULSE 89; RESP 17; TEMP 36.7; O2SAT 98; BMI 31.3
--- NOTE | 2020-01-22 06:02 | XR_ITS ---
PROCEDURE: XR CHEST PORTABLE CLINICAL HISTORY: fall Pain COMPARISON: CT [facility] CT CHEST W/O CONTRAST from 10/16/2016 CR XR CHEST PORTABLE from 11/17/2018 CR XR CHEST PORTABLE from 01/24/2019 CR XR CHEST PORTABLE from 01/25/2019 FINDINGS: There is prominence of the heart and mediastinum. There are low lung volumes. There is elevation the right hemidiaphragm. Coronary artery stent noted on the left. No acute bony abnormalities. IMPRESSION: Poor inspiration with enlarged heart and prominent mediastinum likely due to the poor inspiration. No definite acute finding Dictated by: Edmar Sifuentes MD 01/22/2020 07:06 Edmar Sifuentes MD in [place] 01/22/2020 07:06
--- NOTE | 2020-01-22 06:02 | XR_ITS ---
PROCEDURE: XR PELVIS 1-2V CLINICAL INDICATION: fall Posttraumatic pain COMPARISON: CR PELAP PELVIS AP ONLY from 07/17/2014 TECHNIQUE: XR Pelvis AP View FINDINGS: No fracture or dislocation is evident. No significant degenerative change. Sclerotic focus overlies the left ischial region and may be due to a bone island. Multiple surgical tacks are present in the lower abdominal area IMPRESSION: No acute findings. Dictated by: Edmar Sifuentes MD 01/22/2020 07:04 Edmar Sifuentes MD in [place] 01/22/2020 07:04
--- NOTE | 2020-01-22 06:02 | CT_ITS ---
PROCEDURE: CT HEAD/BRAIN WO CON CLINICAL INDICATION: unwitnessed fall Head injury with headache/pain, contusion, abrasion or hematoma COMPARISON: CT HDWO CT HEAD W/O CONTRAST from 06/03/[address] head/brain wo con from 03/09/2017 TECHNIQUE: Axial images obtained. All CT scans at the facility use one or more dose reduction, viz: automated exposure control, ma/kV adjustment per patient size (including targeted exams where dose is matched to indication, i.e. head), or iterative reconstruction technique. FINDINGS: No midline shift, mass effect, intracranial hemorrhage, hydrocephalus, or extra-axial fluid collection is evident. There is generalized atrophy with hypoattenuation of the periventricular white matter consistent with microangiopathic changes. There is prominence of the subdural space along the retro cerebellar region left greater than right consistent with subdural hygroma not significantly changed. No evidence of acute intracranial hemorrhage. The ventricles are somewhat prominent but may be related to the volume loss from the generalized atrophy. Normal pressure hydrocephalus is also consideration. The calvarium has an unremarkable appearance. No mastoid effusion. Mucosal thickening noted in the sphenoid sinus possibly due to retention cysts with an air-fluid level in the left aspect of the sphenoid sinus. IMPRESSION: 1. No acute intracranial findings. 2. Resolved left-sided subdural hematoma compared to 03/09/2017. 3. Subdural hygroma in the posterior fossa not significantly changed. 4. Ventriculomegaly possibly due to the volume loss/atrophy versus normal pressure hydrocephalus. Dictated by: Edmar Sifuentes MD 01/22/2020 06:50 Edmar Sifuentes MD in [facility] 01/22/2020 06:50
--- NOTE | 2020-01-22 06:02 | XR_ITS ---
PROCEDURE: XR FOOT RT MIN 3V CLINICAL INDICATION: fall Posttraumatic pain COMPARISON: No exams were available for comparison FINDINGS: There is diffuse osteopenia No obvious fracture or dislocation. Other findings:None. IMPRESSION: Diffuse osteopenia otherwise negative Dictated by: Edmar Sifuentes MD 01/22/2020 07:03 Edmar Sifuentes MD in [facility] 01/22/2020 07:03
--- NOTE | 2020-01-22 06:02 | CT_ITS ---
PROCEDURE: CT CERVICAL SPINE WO CON CLINICAL INDICATION: unwitnessed fall Neck injury with pain, contusion/abrasion or hematoma, cervical sprain/strain the COMPARISON: CT CSWO CT CERVICAL SPINE W/O CONT from 06/03/2015 TECHNIQUE: Axial images obtained with sagittal and coronal reformats. All CT scans at the facility use one or more dose reduction, viz: automated exposure control, ma/kV adjustment per patient size (including targeted exams where dose is matched to indication, i.e. head), or iterative reconstruction technique. Axial spiral CT scanning performed of the cervical spine beginning at the base of the skull and continuing to the upper T-spine. 3-D multiplanar reconstruction with 3-D manipulation of volumetric data set in image rendering was completed by the radiologist and/or technologist with the supervision of the radiologist on independent workstation. FINDINGS: Patient's head is tilted toward the right during image acquisition. There is reversal/straightening of the cervical lordosis. There is normal alignment. No acute fracture or dislocation. There is mild multilevel cervical spondylosis with degenerative disc disease at C5-C6 and C6-C7. There is near complete opacification of the sphenoid sinus on the right with an air-fluid level in the left sphenoid sinus. IMPRESSION: No acute fracture. Cervical spondylosis Sphenoid sinus disease Dictated by: Edmar Sifuentes MD 01/22/2020 06:53 Edmar Sifuentes MD in [facility] 01/22/2020 06:53
[2020-01-22 06:22] LABS: Basophils # 0.1 K/mm3 (0-0.2); Basophils % 0.6 % (0.1-2.0); Eosinophils # 0.3 K/mm3 (0.0-0.4); Hematocrit 36.9 % (42.0-52.0); Hemoglobin 11.6 g/dL (14.1-18.0); Lymphocytes # 1.8 K/mm3 (0.7-4.5); Lymphocytes % 10.8 % (10-50); Mean Corpuscular HGB Conc 31.3 g/dL (31.8-35.4); Mean Corpuscular Hemoglobin 31.3 pg (27.0-31.2); Mean Corpuscular Volume 99.9 fl (80-94); Monocytes # 0.7 K/mm3 (0.1-1.0); Monocytes % 4.4 % (1.7-9.3); Neutrophils # 13.9 K/mm3 (1.8-7.8); Neutrophils % 82.2 % (37.0-80.0); Platelet Count 419 K/mm3 (142-424); Red Blood Count 3.69 M/mm3 (4.60-6.20); Red Cell Distribution Width 15.5 % (11.5-17.5); White Blood Count 16.8 K/mm3 (4.8-10.8)
[2020-01-22 06:23] LABS: MANUAL DIFFERENTIAL MANUAL DIFFERENTIAL (MANUAL DIFF)
[2020-01-22 06:27] LABS: Chloride 97 mmol/L (98-107); Potassium 4.8 mmoL/L (3.5-5.1); Sodium 137 mmol/L (136-145)
--- NOTE | 2020-01-22 06:27 | PC.NURSE ---
pt to RAD
[2020-01-22 06:30] LABS: Alanine Aminotransferase 24 U/L (12-78); Albumin Level 4.5 g/dl (3.5-5.0); Albumin/Globulin Ratio 1.2 (1.1-1.8); Alkaline Phosphatase 119 U/L (38-126); Anion Gap 12.8 mEq/L (5-15); Aspartate Amino Transferase 24 U/L (17-59); Bilirubin,Total 0.4 mg/dl (0.2-1.3); Blood Urea Nitrogen 18 mg/dl (9-20); Calcium 9.9 mg/dl (8.4-10.2); Carbon Dioxide 32 mmol/L (22.0-30.0); Creatinine Clearance Estimated 77 mL/min (50-200); Estimated Glomerular Filt Rate 56 ml/min (>60); GFR (African American) 68 ML/MIN (>60); Globulin 3.8 g/dL (1.3-3.2); Glucose 142 mg/dl (74-100); Total Protein,Serum 8.3 g/dl (6.3-8.2)
[2020-01-22 06:53] LABS: Eosinophils % 6 % (0-3); Lymphocytes % 10 % (10-50); Monocytes % 8 % (2-9); Neutrophils % 75 % (42-76); Platelet Estimate Slight Increase; RBC Morphology Normal; Total Cells Counted 100
--- NOTE | 2020-01-22 06:53 | PC.NURSE ---
report given to rosey curtis
--- NOTE | 2020-01-22 07:29 | HMH.EDFALL ---
ED Disposition Clinical Impression: Obesity (BMI 30-39.9), Cervical spondylolysis, Subdural hygroma, Cerebral ventriculomegaly Fall Qualifiers: Encounter type: initial encounter Qualified Code(s): W19.XXXA - Unspecified fall, initial encounter Head contusion Qualifiers: Encounter type: initial encounter Contusion of head detail: scalp Qualified Code(s): S00.03XA - Contusion of scalp, initial encounter Cervical strain, acute Qualifiers: Encounter type: initial encounter Qualified Code(s): S16.1XXA - Strain of muscle, fascia and tendon at neck level, initial encounter Contusion of foot, right Qualifiers: Encounter type: initial encounter Qualified Code(s): S90.31XA - Contusion of right foot, initial encounter Leucocytosis Qualifiers: Leukocytosis type: unspecified Qualified Code(s): D72.829 - Elevated white blood cell count, unspecified Schizoaffective disorder Qualifiers: Schizoaffective disorder type: unspecified Qualified Code(s): F25.9 - Schizoaffective disorder, unspecified Sphenoid sinusitis Qualifiers: Chronicity: unspecified Qualified Code(s): J32.3 - Chronic sphenoidal sinusitis Osteopenia Qualifiers: Osteopenia location: foot Laterality: right Qualified Code(s): M85.871 - Other specified disorders of bone density and structure, right ankle and foot Atherosclerotic heart disease of [place] coronary artery without angina pectoris Qualifiers: [place] vs. transplanted heart: [place] heart Qualified Code(s): I25.10 - Atherosclerotic heart disease of [place] coronary artery without angina pectoris Disposition: Xfer SNF Condition on Discharge: Good Instructions: How to Prevent Falls Additional Instructions: resume prev orders Referrals: Roney Travis MD [Primary Care Provider] - - Critical Care Critical Care Time: No Attestation: On 01/22/20, the high probability of a clinically significant, sudden or life threatening deterioration of the following system(s) required my full and direct attention, intervention and personal management. The time I documented below is in addition to time spent performing reported procedures but includes the following listed in this critical care notation. Medical Decision Making - Medical Records Medical records reviewed: Yes: I reviewed the patient's medical records. - Gaudencio Inquiry Pt receiving controlled substance: No Vital Signs: 01/22/20 05:56 Temperature 98.1 F Temperature Source Oral Pulse Rate [Right Brachial] 89 Respiratory Rate 17 Blood Pressure [Right Arm] 134/72 Blood Pressure Mean [Right Arm] 92 Blood Pressure Source [Right Arm] Automatic Cuff Blood Pressure Position [Right Arm] Sitting 02 Sat by Pulse Oximetry 98 Oxygen Delivery Method Room Air - Lab Data Lab results reviewed: Yes: I reviewed the patient's lab results. Lab Results 01/22/20 06:15: WBC 16.8 H, RBC 3.69 L, Hgb 11.6 L, Hct 36.9 L, MCV 99.9 H, MCH 31.3 H, MCHC 31.3 L, RDW 15.5, Plt Count 419, MPV 8.0, Neut % (Auto) 82.2 H, Lymph % (Auto) 10.8, Banks % (Auto) 4.4, Eos % (Auto) 2.0, Baso % (Auto) 0.6, Neut # (Auto) 13.9 H, Lymph # (Auto) 1.8, [place] # (Auto) 0.7, Eos # (Auto) 0.3, Baso # (Auto) 0.1, Total Counted 100, Neutrophils % (Manual) 75, Band Neutrophils % 1.0, Lymphocytes % (Manual) 10, Monocytes % (Manual) 8, Eosinophils % (Manual) 6 H, Platelet Estimate Slight increase, RBC Morphology Normal 01/22/20 06:15: Sodium 137, Potassium 4.8, Chloride 97 L, Carbon Dioxide 32 H, Anion Gap 12.8, BUN 18, Creatinine 1.30 H, Estimated Creat Clear 77, Estimated GFR 56 L, Est GFR ( Amer) 68, Glucose 142 H, Calcium 9.9, Total Bilirubin 0.4, AST 24, ALT 24, Alkaline Phosphatase 119, Total Protein 8.3 H, Albumin 4.5, Globulin 3.8 H, Albumin/Globulin Ratio 1.2 Result diagrams: 01/22/20 06:15 01/22/20 06:15 Orders (Tests/Meds): ED MEDICATIONS Generic Name Dose Route Start Last Admin Trade Name Freq PRN Reason Stop Dose Admin Sodium Chloride 1,000 mls @ 999 mls/hr
[2020-01-22 07:32] VITALS: BP 139/79; PULSE 89; RESP 20; O2SAT 98
--- NOTE | 2020-01-22 08:09 | PC.NURSE ---
laure notified of transport back to [facility]
[2020-01-22 08:37] VITALS: BP 149/130; PULSE 59; RESP 22; O2SAT 94
--- NOTE | 2020-01-22 08:56 | PC.NURSE ---
called [facility] for transport , advised they would be on their way in a few minutes
[2020-01-22 09:14] VITALS: BP 134/88; PULSE 89; RESP 18; TEMP 36.6; O2SAT 98
== END 2020-01-22 09:15 ==
PROVIDERS: Emergency Provider Emergency Medicine; PCP Emergency Medicine
DX: S00.03XA Contusion of scalp, initial encounter (principal); S16.1XXA Strain of muscle, fascia and tendon at neck level, initial encounter; S90.31XA Contusion of right foot, initial encounter; W06.XXXA Fall from bed, initial encounter; Y92.129 Unspecified place in nursing home as the place of occurrence of the external cause; M43.02 Spondylolysis, cervical region; G96.08 Other cranial cerebrospinal fluid leak; G93.89 Other specified disorders of brain; M85.871 Other specified disorders of bone density and structure, right ankle and foot; F25.9 Schizoaffective disorder, unspecified; J32.3 Chronic sphenoidal sinusitis; Z87.891 Personal history of nicotine dependence; I25.10 Atherosclerotic heart disease of native coronary artery without angina pectoris; E11.9 Type 2 diabetes mellitus without complications; I10 Essential (primary) hypertension; K21.9 Gastro-esophageal reflux disease without esophagitis; E03.9 Hypothyroidism, unspecified; E78.5 Hyperlipidemia, unspecified; M81.0 Age-related osteoporosis without current pathological fracture; Z79.899 Other long term (current) drug therapy; Z88.5 Allergy status to narcotic agent
CPT/HCPCS: 70450; 71045; 72125; 72170; 73630; 80053; 85007; 85025; 96365; 99284

== ENCOUNTER 2020-02-23 11:37 | Inpatient (IN) | payer MEDICARE, MEDICAID, SELFPAY ==
[2020-02-23] VITALS (18 sets, daily range): BP systolic 102–134; BP diastolic 60–86; PULSE 94–111; RESP 18–32; TEMP 36.3–39.1; O2SAT 90–100; BMI 396412.7; BMI 39.6; BMI 33.2
--- NOTE | 2020-02-23 11:39 | ECG_ITS ---
APPROVED REPORT Exam: Resting ECG HR:111 bpm ECG Measurements Heart Rate 111 AXES NE 140 P 43 QRSd 74 QRS 74 QT 268 T 52 QTc 364 Conclusion Sinus tachycardia Otherwise normal ECG Electronically signed by : Fritz Acosta, 02/23/2020 17:10:07
--- NOTE | 2020-02-23 11:40 | XR_ITS ---
PROCEDURE: XR CHEST PORTABLE CLINICAL HISTORY: cough COMPARISON: CT CHWO CT CHEST W/O CONTRAST from 10/16/2016 CR XR CHEST PORTABLE from 01/24/2019 CR XR CHEST PORTABLE from 01/25/2019 CR XR CHEST PORTABLE from 01/22/2020 FINDINGS: Mild cardiomegaly without failure. Hypoventilation. No definite lobar consolidation or collapse. No acute bony abnormalities. IMPRESSION: Cardiomegaly with hypoventilation, no acute finding Dictated by: Edmar Sifuentes MD 02/23/2020 13:27 Edmar Sifuentes MD in [facility] 02/23/2020 13:27
--- NOTE | 2020-02-23 11:52 | HMH.EDGENADL ---
ED Disposition Clinical Impression: Hyperkalemia Acute renal failure Qualifiers: Acute renal failure type: unspecified Qualified Code(s): N17.9 - Acute kidney failure, unspecified Pneumonia Qualifiers: Pneumonia type: due to unspecified organism Laterality: unspecified laterality Lung location: unspecified part of lung Qualified Code(s): J18.9 - Pneumonia, unspecified organism Disposition: Admitted As Inpatient Condition on Discharge: Serious Referrals: PCP,No [Non-Staff] - Time of Disposition: 15:48 - Critical Care Critical Care Time: Yes Attestation: On , the high probability of a clinically significant, sudden or life threatening deterioration of the following system(s) required my full and direct attention, intervention and personal management. The time I documented below is in addition to time spent performing reported procedures but includes the following listed in this critical care notation. Total Critical Care Time: 40 Vital system(s) involved:: Metabolic Failure, Renal Failure My critical care processes included: Assessment & monitoring of V/S, Initial and Re-exams, Data Review/Interpretation, Coordinating Care, Medication Orders and management, Documentation Medical Decision Making - Medical Records Medical records reviewed: Yes: I reviewed the patient's medical records. - Gaudencio Inquiry Pt receiving controlled substance: No Vital Signs: 02/23/20 11:37 02/23/20 12:29 02/23/20 12:30 Temperature 102.3 F H Temperature Source Rectal Pulse Rate [Apical] 111 H 109 H 107 H Respiratory Rate 32 H Blood Pressure [Right Arm] 117/73 108/75 L 126/85 Blood Pressure Mean [Right Arm] 87 86 98 Blood Pressure Source [Right Arm] Automatic Cuff Automatic Cuff Automatic Cuff Blood Pressure Position [Right Arm] Sitting Sitting Sitting 02 Sat by Pulse Oximetry 95 95 97 Oxygen Delivery Method Nasal Cannula Room Air Room Air Oxygen Flow Rate (LPM) 2 02/23/20 13:00 02/23/20 13:28 02/23/20 14:00 Temperature Temperature Source Pulse Rate [Apical] 104 H 101 H 99 H Respiratory Rate Blood Pressure [Right Arm] 114/78 128/78 121/76 Blood Pressure Mean [Right Arm] 90 94 91 Blood Pressure Source [Right Arm] Automatic Cuff Automatic Cuff Automatic Cuff Blood Pressure Position [Right Arm] Sitting Sitting Sitting 02 Sat by Pulse Oximetry 96 92 L 90 L Oxygen Delivery Method Room Air Room Air Nasal Cannula Oxygen Flow Rate (LPM) 4 02/23/20 14:03 02/23/20 14:30 02/23/20 15:00 Temperature 99.5 F Temperature Source Oral Pulse Rate [Apical] 99 H 98 H Respiratory Rate Blood Pressure [Right Arm] 118/70 127/71 Blood Pressure Mean [Right Arm] 86 89 Blood Pressure Source [Right Arm] Automatic Cuff Automatic Cuff Blood Pressure Position [Right Arm] Sitting Sitting 02 Sat by Pulse Oximetry 97 Oxygen Delivery Method Nasal Cannula Oxygen Flow Rate (LPM) 2 02/23/20 15:30 Temperature Temperature Source Pulse Rate [Apical] 97 H Respiratory Rate Blood Pressure [Right Arm] 129/74 Blood Pressure Mean [Right Arm] 92 Blood Pressure Source [Right Arm] Automatic Cuff Blood Pressure Position [Right Arm] Sitting 02 Sat by Pulse Oximetry 98 Oxygen Delivery Method Nasal Cannula Oxygen Flow Rate (LPM) 2 - Lab Data Lab Results 02/23/20 11:40: WBC 15.6 H, RBC 3.82 L, Hgb 12.7 L, Hct 39.6 L, MCV 103.5 H, MCH 33.2 H, MCHC 32.0, RDW 14.5, Plt Count 414, MPV 8.3, Neut % (Auto) 83.4 H, Lymph % (Auto) 11.5, [place] % (Auto) 4.4, Eos % (Auto) 0.2, Baso % (Auto) 0.6, Neut # (Auto) 13.0 H, Lymph # (Auto) 1.8, [place] # (Auto) 0.7, Eos # (Auto) 0.0, Baso # (Auto) 0.1, Total Counted 100, Neutrophils % (Manual) 76, Band Neutrophils % 4.0, Lymphocytes % (Manual) 17, Monocytes % (Manual) 3, Platelet Estimate Normal, Anisocytosis 1+, Macrocytosis 1+ 02/23/20 11:40: VBG pH 7.34, VBG pCO2 49.0, VBG pO2 189.7 H, VBG HCO3 25.6, VBG Total CO2 27.1 H, VBG O2 Saturation 99.4 H, VBG Base Excess -0.2 02/23/20 11:40: Sodium 155
[2020-02-23 11:54] LABS: Basophils # 0.1 K/mm3 (0-0.2); Basophils % 0.6 % (0.1-2.0); Eosinophils % 0.2 % (0.1-12.0); Hematocrit 39.6 % (42.0-52.0); Hemoglobin 12.7 g/dL (14.1-18.0); Lymphocytes # 1.8 K/mm3 (0.7-4.5); Lymphocytes % 11.5 % (10-50); Mean Corpuscular Hemoglobin 33.2 pg (27.0-31.2); Mean Corpuscular Volume 103.5 fl (80-94); Mean Platelet Volume 8.3 fl (7.4-10.4); Monocytes # 0.7 K/mm3 (0.1-1.0); Monocytes % 4.4 % (1.7-9.3); Neutrophils % 83.4 % (37.0-80.0); Platelet Count 414 K/mm3 (142-424); Red Blood Count 3.82 M/mm3 (4.60-6.20); Red Cell Distribution Width 14.5 % (11.5-17.5); White Blood Count 15.6 K/mm3 (4.8-10.8)
[2020-02-23 11:57] LABS: MANUAL DIFFERENTIAL MANUAL DIFFERENTIAL (MANUAL DIFF)
[2020-02-23 12:00] LABS: Chloride 117 mmol/L (98-107)
[2020-02-23 12:03] LABS: Alanine Aminotransferase 18 U/L (12-78); Alkaline Phosphatase 93 U/L (38-126); Aspartate Amino Transferase 25 U/L (17-59); Bilirubin,Total 0.5 mg/dl (0.2-1.3); Blood Urea Nitrogen 51 mg/dl (9-20); Creatinine Clearance Estimated 32 mL/min (50-200); Estimated Glomerular Filt Rate 20 ml/min (>60); GFR (African American) 24 ML/MIN (>60)
[2020-02-23 12:04] LABS: Anion Gap 15.6 mEq/L (5-15); Calcium 10.9 mg/dl (8.4-10.2); Carbon Dioxide 29 mmol/L (22.0-30.0); Globulin 5.2 g/dL (1.3-3.2); Glucose 154 mg/dl (74-100); Lactic Acid 1.2 mmol/L (0.7-2.1); Total Protein,Serum 10.2 g/dl (6.3-8.2)
--- NOTE | 2020-02-23 12:05 | PC.NURSE ---
pt with rad
[2020-02-23 12:07] LABS: Anisocytosis 1+; Lymphocytes % 17 % (10-50); Macrocytosis 1+; Monocytes % 3 % (2-9); Neutrophils % 76 % (42-76); Platelet Estimate Normal; Total Cells Counted 100
[2020-02-23 12:09] LABS: Potassium 6.6 mmoL/L (3.5-5.1); Sodium 155 mmol/L (136-145)
--- NOTE | 2020-02-23 12:11 | PC.NURSE ---
KELLY MCMULLEN notified of critical Na and K
--- NOTE | 2020-02-23 12:12 | CT_ITS ---
PROCEDURE: CT HEAD/BRAIN WO CON CLINICAL INDICATION: AMS Altered mental status, altered level of consciousness, confusion, disorientation COMPARISON: CT CT HEAD/BRAIN WO CON from 01/22/2020 TECHNIQUE: Axial images obtained. All CT scans at the facility use one or more dose reduction, viz: automated exposure control, ma/kV adjustment per patient size (including targeted exams where dose is matched to indication, i.e. head), or iterative reconstruction technique. FINDINGS: No midline shift, mass effect, intracranial hemorrhage, hydrocephalus, or extra-axial fluid collection is evident. There is generalized atrophy with hypoattenuation of the periventricular white matter consistent with microangiopathic changes.. There is ventriculomegaly which may be due to ex vacuo dilatation from the atrophy. The calvarium has an unremarkable appearance. No mastoid effusion. No sinus air-fluid level. IMPRESSION: No acute intracranial finding Dictated by: Edmar Sifuentes MD 02/23/2020 12:32 Edmar Sifuentes MD in [facility] 02/23/2020 12:32
--- NOTE | 2020-02-23 12:14 | PC.NURSE ---
notified RT of VBG order
[2020-02-23 12:26] LABS: VBG Base Excess -0.2 mmol/L (-2.4-2.3); VBG HCO3 25.6 mmol/L (23-30); VBG Oxygen Saturation 99.4 % (50-70); VBG PH 7.34 mmol/L (7.31-7.41); VBG PO2 189.7 mmol/L (28-40); VBG Total CO2 27.1 mmol/L (23-27)
--- NOTE | 2020-02-23 12:27 | PC.NURSE ---
Pt returned from rad
[2020-02-23 12:30] LABS: Coronavirus 19 IgG Antibody Negative (Negative); Coronavirus 19 IgM Antibody Negative (Negative)
[2020-02-23 12:35] LABS: Procalcitonin 0.265 ng/mL (0.0-2.0)
--- NOTE | 2020-02-23 13:33 | CT_ITS ---
PROCEDURE: CT ABDOMEN PELVIS WO CON CLINICAL INDICATION: renal failure COMPARISON: CT CT ABDOMEN PELVIS WO CON from 01/25/2019 TECHNIQUE: Axial images obtained with sagittal and coronal reformats. All CT scans at the facility use one or more dose reduction, viz: automated exposure control, ma/kV adjustment per patient size (including targeted exams where dose is matched to indication, i.e. head), or iterative reconstruction technique. FINDINGS: LOWER THORAX: Coronary artery stent noted ABDOMEN & PELVIS: There is increased density within the posterior aspect of the gallbladder and may be due to stones and/or sludge. The liver, spleen, adrenal glands and pancreas have an unremarkable appearance. No renal or ureteral calculi. No hydronephrosis. The right lateral abdominal wall is incompletely included on the exam. No evidence of appendicitis. No intestinal obstruction or free air. Stephens catheter is present. Urinary bladder wall is thickened but may be due to nondistention. No acute bony findings. IMPRESSION: Stephens catheter is present within contracted urinary bladder with mildly thickened wall nonspecific. No hydronephrosis or other acute anomaly. Dictated by: Edmar Sifuentes MD 02/24/2020 10:00 Edmar Sifuentes MD in [facility] 02/24/2020 10:00
--- NOTE | 2020-02-23 14:00 | PC.NURSE ---
pt is more alert at this time, was able to answer yes/no questions. notified ER
[2020-02-23 14:01] LABS: Microscopic, Urine URINE MICROSCOPIC (MICROSCOPIC)
[2020-02-23 14:06] LABS: Appearance,Urine CLEAR (Clear); Bilirubin,Urine Negative (Negative); Blood, Urine 2+ (Negative); Color,Urine YELLOW (Yellow); Glucose,Urine (UA) Negative (Negative); Ketones,Urine Negative (Negative); Leukocyte Esterase,Urine Negative (Negative); Nitrate,Urine Negative (Negative); PH,Urine 5.5 (5.0-8.5); Protein,Urine 3+ (Negative); Specific Gravity, Urine >= 1.030 (1.005-1.030); Urobilinogen,Urine 0.2 EU/dl (0.2)
--- NOTE | 2020-02-23 14:23 | PC.NURSE ---
pt gone to radiology
[2020-02-23 14:41] LABS: Chloride 119 mmol/L (98-107)
[2020-02-23 14:45] LABS: Anion Gap 14.3 mEq/L (5-15); Blood Urea Nitrogen 51 mg/dl (9-20); Calcium 10.2 mg/dl (8.4-10.2); Carbon Dioxide 28 mmol/L (22.0-30.0); Creatinine Clearance Estimated 33 mL/min (50-200); Estimated Glomerular Filt Rate 21 ml/min (>60); GFR (African American) 25 ML/MIN (>60); Glucose 132 mg/dl (74-100)
[2020-02-23 14:48] LABS: Potassium 6.3 mmoL/L (3.5-5.1); Sodium 155 mmol/L (136-145)
--- NOTE | 2020-02-23 15:09 | PC.NURSE ---
critical lab values called to dr shine
--- NOTE | 2020-02-23 15:40 | PC.NURSE ---
dr shine speaking with dr huerta
--- NOTE | 2020-02-23 15:46 | PC.NURSE ---
no answer with care management, notified house builder of admission
--- NOTE | 2020-02-23 17:05 | PC.NURSE ---
notified second floor that pt is ready for admission
--- NOTE | 2020-02-23 17:43 | PC.NURSE ---
pt turned onto his R side at this time
--- NOTE | 2020-02-23 17:53 | PC.NURSE ---
report given to rosey best
--- NOTE | 2020-02-23 18:49 | PC.NURSE ---
admission was limited because patient mental status is not completely intact
--- NOTE | 2020-02-23 20:19 | PC.NURSE ---
patient did well upon arrival to floor at 1800. drank two glasses of water. oriented to place and name. able to voice discomfort. mumbled speech. requested chicken noodle soup. appear to be in no distress. kirby noted through out. on 2 l nasal cannula. bolus from er hung, and calcium gluconate was finishing up. no complaints vitals stable. report given to aung currie
[2020-02-23 23:09] LABS: Chloride 121 mmol/L (98-107); Potassium 5.8 mmoL/L (3.5-5.1)
[2020-02-23 23:12] LABS: Anion Gap 10.8 mEq/L (5-15); Blood Urea Nitrogen 42 mg/dl (9-20); Carbon Dioxide 29 mmol/L (22.0-30.0); Creatinine Clearance Estimated 37 mL/min (50-200); Estimated Glomerular Filt Rate 26 ml/min (>60); GFR (African American) 32 ML/MIN (>60)
[2020-02-23 23:13] LABS: Calcium 9.4 mg/dl (8.4-10.2); Glucose 114 mg/dl (74-100)
[2020-02-23 23:16] LABS: Sodium 155 mmol/L (136-145)
[2020-02-24] VITALS (7 sets, daily range): BP systolic 92–125; BP diastolic 48–79; PULSE 50–102; RESP 16–20; TEMP 36.8–37.2; O2SAT 93–100; BMI 33.3
--- NOTE | 2020-02-24 04:39 | PC.NURSE ---
no acute changes. pt refused to take HS meds. 2LNC in use at this time. iv patent and infusing per order. akers draining yellow urine. pt has slept through shift with no complaints. call light in reach. bed in lowest position. vss. will continue to monitor pt condition.
--- NOTE | 2020-02-24 07:51 | HMH.PHAVTE ---
[facility] Pharmacy VTE Monitoring - Patient Demographics Admission date: 02/23/20 Report Date: 02/24/20 Time: 07:51 Allergies/Adverse Reactions: Patient Allergies morphine [MORPHINE] Allergy (Mild, Verified 11/12/19 09:08) HURTS STOMACH nitroglycerin Allergy (Mild, Verified 11/12/19 09:08) Nausea Height: 1.6 m Weight: 85.139 kg Patient Problems: Current Active Problems Hyperkalemia (Acute) Acute renal failure (Acute) Pneumonia (Acute) - VTE Risk Labs: VTE Related Lab Results Hgb 12.7 g/dL (14.1-18.0) L 02/23/20 11:40 Hct 39.6 % (42.0-52.0) L 02/23/20 11:40 Plt Count 414 K/mm3 (142-424) 02/23/20 11:40 BUN 42 mg/dl (9-20) H 02/23/20 23:00 Creatinine 2.50 mg/dl (0.66-1.25) H 02/23/20 23:00 Estimated Creat Clear 37 mL/min (50-200) 02/23/20 23:00 Was VTE Risk Assessment Performed: Yes VTE Score: 5 VTE Risk Level: Low Risk - Prophylaxis VTE Prophylaxis Ordered?: Yes Types of VTE Prophylaxis: TEDS Knee High Location of Applied Device: Bilateral Lower Extremeties
--- NOTE | 2020-02-24 08:20 | CA_ITS ---
APPROVED REPORT EXAM: Comprehensive 2D, Doppler, and color-flow Echocardiogram Bacteriology Research Assistant: Ashli Abdalla RT(R) Ht: 5 ft 3 in Wt: 187lbs BSA: 1.88 BP: 117/73 mmHg Indications: ex smoker, HTN, hyperlipidemia, pneumonia, renal failure, fever, CAD, home o2, CHF, obesity 2D Dimensions LVOT 1.99 cm (M/F) 1.5-2.5 M-Mode Dimensions RVDd 2.22 cm (0.9-2.6) LA Diam 3.16 cm (1.9-4.0) LVDd 4.90 cm (3.5-5.7) Ao Diam 2.34 cm (2.0-3.7) LVDs 3.65 cm (3.5-5.7) IVSd 1.00 cm (0.6-1.1) PWd 0.91 cm (0.6-1.1) EF (Teich) 50.10% FS 25.50% EDV (Teich) 112.80 mL ESV (Teich) 56.30 mL LV Diastology E Decel Time 207.00 (160-240 msec) E/A Ratio 1.0 MED E' 9.20 (< 7 cm/sec) E'/MED E' Ratio 8.12 (>14) LAT E' 8.60 (<10 cm/sec) E/LAT E' Ratio 8.69 (>14) Mitral Valve MV E Max Antoine. 75.00 (40-130 cm/s) MV A Velocity 75.00 (40-130 cm/s) E/A Ratio 0.99 MV Decel. Time 207.00 (160-240 ms) MV PHT 61.00 ms Left Ventricle Left atrium is mildly enlarged, left ventricle is normal size, mild concentric left ventricular hypertrophy, visually estimated ejection fraction 55% with no regional wall motion abnormality, grade 1 diastolic dysfunction seen without tissue Doppler evidence of raise left atrial pressure. Right Ventricle Right atrium is normal size, right ventricle is mildly enlarged with normal contractility. Aortic Valve Aortic valve is minimally thickened and fibrosed, there is no aortic stenosis or aortic insufficiency. Mitral Valve Mitral valve is grossly normal, there is mild mitral regurgitation. Tricuspid Valve Tricuspid valve grossly normal, there is mild tricuspid regurgitation, tricuspid regurgitation jet velocity is inadequate for calculation of the right ventricular systolic pressure. Pulmonic Valve Pulmonic valve is poorly visualized. Great Vessels Aortic root is normal size. Pericardium No significant pericardial effusion noted. Conclusion 1. Normal left ventricular size, mild concentric left ventricular hypertrophy, visually estimated ejection fraction 55% with no regional wall motion abnormality, grade 1 diastolic dysfunction seen without tissue Doppler evidence of raise left atrial pressure. 2. Mildly enlarged right ventricle with normal contractility. 3. Mild mitral and tricuspid regurgitation. 4. No significant pericardial effusion noted. Electronically signed by : Jackson Ramírez, 02/24/2020 13:13:21
--- NOTE | 2020-02-24 09:17 | SW/DCPLANNER ---
Addendum entered by Stacy Hui 02/28/20 15:11: COVID is negative and has been faxed to [facility]. Addendum entered by Stacy Hui 02/28/20 10:04: I have informed Alena with [facility] that this patient will discharge back today once COVID results. Original Note: This patient currently resides at [facility]. I have spoke with Alena from [place] and she has stated that patient is [facility] level of care. I will continue to follow up with Alena until patient is medically stable for discharge.
--- NOTE | 2020-02-24 10:08 | HMH.HP ---
*Admission Date: 02/23/20 *Chief complaint: ams *History of present illness: 59-year-old male sent from [place] presenting to the emergency department with rhonchi, cough,and fever. Per nursing at group home he was not responding to questions when asked and seems he is off. nurse states he was just staring at her and was not answering. Per ed When EMS arrived he was febrile to 101. pt wears o2 at group home. Patient uses a wheelchair. Has a history of aspiration pneumonia and is noncompliant with diet. Pt admitted for more evaluation and cardiology consult for chf. [facility] History I have reviewed the patient's past medical history: Yes Medical History: Reports:: Anxiety, Asthma, Atherosclerotic Heart Disease, Congestive Heart Failure, Congenital Heart Disease, Coronary Artery Disease, Depression, Diabetes Mellitus Type 2, Gastroesophageal Reflux Disease(GERD), Home Oxygen, Hyperlipidemia, Hypertension, Lung Disease, Osteoporosis Denies:: Cancer, Diabetes Mellitus Type 1, Internal Pacemaker, Seizures *Have you ever received a pneumonia vaccine?: Yes *Have you received a flu vaccine this season?: Yes Other Medical History: Reports: Anemia, Hypothyroidism, Osteoporosis, Thyroid Disease, Other Laterality Cases: Bilateral: Carpal Tunnel Release Other Surgeries: Yes: No Previous Surgery, Colonoscopy, Coronary Stent, EGD, Hernia Repair, Other. No: Pacemaker Amputation: No Fractures: No - *Social History Smoking Status: Former smoker Tobacco Type: cigarettes Alcohol Intake: never Alcohol Intake Frequency:: 3 or more drinks per day Substance Use Type: marijuana *Occupational Status:: unemployed Housing: group home Household Members: other *Travel in the last 8 weeks: None - Psychiatric History Pschychiatric History:: Reports:: Anxiety, Depression Family Hx:: Unable to obtain Review of Systems - Review of Systems Review of systems:: pertinent systems reviewed and negative unless documented below - Constitutional Denies body ache(s) - Eyes Denies blurry vision - ENT Denies bleeding gums, Denies sore throat - *Cardiovascular Denies chest pain at rest - *Respiratory Reports chest congestion, Reports cough - *Gastrointestinal Denies abdominal pain - *Genitourinary Denies difficulty urinating - *Musculoskeletal Denies joint pain - Integumentary/Breasts Denies rash - *Neurologic Denies abnormal hearing - Psychiatric Denies lack of enjoyment - Endocrine Denies excessive sweating - Hematologic/Lymphatic Denies enlarged lymph nodes - Allergic/Immunologic Denies itchy eyes Meds Home Medications Medication Instructions Recorded Confirmed Type atorvastatin 40 mg tablet 40 mg PO HS 03/24/17 02/23/20 History docusate sodium 250 mg capsule 250 mg PO DAILYP PRN 03/24/17 02/23/20 History furosemide 80 mg tablet 80 mg PO BID tab 03/24/17 02/23/20 History loratadine 10 mg tablet 10 mg PO DAILY 03/24/17 02/23/20 History isosorbide mononitrate 30 mg 30 mg PO DAILY 04/11/17 02/23/20 History tablet,extended release 24 hr folic acid 0.8 mg capsule 0.8 mg PO DAILY 09/30/17 02/23/20 History magnesium oxide 400 mg PO HS cap 09/30/17 02/23/20 History spironolactone 50 mg tablet 50 mg PO BID tab 09/30/17 02/23/20 History Acetaminophen 500 mg PO Q4HP PRN 11/10/17 02/23/20 History Omeprazole [Omeprazole 20mg 20 mg PO Q48H 11/10/17 02/23/20 History Capsule] Cyanocobalamin (Vitamin B-12) 750 mcg PO DAILY 11/11/17 02/23/20 History [Vitamin B-12] Levothyroxine Sodium 50 mcg PO DAILY 11/11/17 02/23/20 History [Levothyroxine 50mcg (0.05mg) Tab] Potassium Chloride [Klor-con 20 40 meq PO BID 11/11/17 02/23/20 History mEq tablet] Tamsulosin HCl [Flomax 0.4mg 0.4 mg PO DAILY 11/11/17 02/23/20 History capsule] losartan 25 mg tablet 12.5 mg PO DAILY tab 09/29/18 02/23/20 History Bisacodyl [Bisacodyl 10mg Supp] 10 mg RC DAILYP PRN 11/17/18 02/23/20 History Lactulose [Lactulose 10gm/15ml
--- NOTE | 2020-02-24 10:27 | HMH.PHAINT ---
MEDICATION RECONCILIATION COMPLETED ON PATIENT USING MAR FROM CORRECTION. -MAINOR EDWARDS, MARCO AD
--- NOTE | 2020-02-24 11:17 | HMH.CNCARD ---
History of Present Illness Consult date: 02/24/20 Requesting physician: Narayan Velasco Consult reason: congestive heart failure Chief complaint: AMS, pneumonia, ARF, Hyperkalemia Additional Medical History:: 1. CAD A. [facility], 07/2014, 50-60% LAD lesion, 40% RCA lesion with medical therapy recommended. LVEDP is 20 mm Hg. Moderate to severe pulmonary hypertension with Pulmonary Artery Occlusion Pressure is 20 mm Hg. B. [facility] to LAD, 06/21/2015, [facility], Dr. Nina. On DAPT. Moderate to severe elevated LVEDP. C. [facility], 11/2018, ANGIOGRAPHIC RESULTS The left main artery Has a smooth ostial 20 to 30% stenosis The left anterior descending artery Has a stent in the ostial proximal segment which is widely patent free of in-stent restenosis with excellent proximal distal transitioning. The remaining vessel is free of disease The circumflex artery Is a small caliber non-dominant vessel with mild 10 to 20% luminal irregularities The right coronary artery Is a dominant vessel with mid vessel 30% stenoses and a distal 30% [id number] stenosis The ECHEVARRIA ventriculogram reveals Normal 65% The left ventricular end-diastolic pressure 15 mmHg IMPRESSION Coronary arteries as described above Normal ejection fraction Mildly elevated LVEDP 2. Obesity, morbid 3. COPD/cor pulmonale/pulmonary HTN/Pickwickian Syndrome A. Chronic oxygen therapy with CPAP use at night. 4. Hyperlipidemia 5. Schizoaffective Disorder 6. Diabetes History of present illness: In summary this is a 59-year-old male presenting to the emergency department with rhonchi and fever. Patient is awake and alert on arrival, however he is unable to respond appropriately to questions. Vital signs are stable. Tachycardic. Differential diagnoses include aspiration pneumonia, community-acquired pneumonia, sepsis. Will obtain CBC, CMP, chest x-ray, EKG, troponin profile, procalcitonin, venous lactic, Covid test, chest x-ray. Covered presumptively for aspiration pneumonia, given Rocephin and clindamycin. Receiving IV fluid bolus. Laboratory results remarkable for acute renal failure. Creatinine is 3.2, baseline within normal limits. Potassium is elevated at 6.6. No EKG changes. Patient has hypernatremia of 155. Receiving IV fluids. White blood cell count elevated at 15 K. Patient given 1 g of calcium gluconate. Given 10 units of regular insulin and [address] abdomen pelvis does not show urinary tract obstruction. Stephens catheter in place and patient has had output of greater than [address] Travis consulted for admission. He graciously excepted. On reassessment patient was clinically stable. The above per KELLY Rivers MD Patient initially sleeping upon entering the room but able to awaken with verbal and physical stimuli. Patient attempts to answer questions but responses are mumbled and largely unintelligible. [facility] History Medical History: Reports:: Anxiety, Asthma, Atherosclerotic Heart Disease, Congestive Heart Failure, Congenital Heart Disease, Coronary Artery Disease, Depression, Diabetes Mellitus Type 2, Gastroesophageal Reflux Disease(GERD), Home Oxygen, Hyperlipidemia, Hypertension, Lung Disease, Osteoporosis Denies:: Cancer, Diabetes Mellitus Type 1, Internal Pacemaker, Seizures *Have you ever received a pneumonia vaccine?: Yes *Have you received a flu vaccine this season?: Yes Other Medical History: Reports: Anemia, Hypothyroidism, Osteoporosis, Thyroid Disease, Other Laterality Cases: Bilateral: Carpal Tunnel Release Other Surgeries: Yes: No Previous Surgery, Colonoscopy, Coronary Stent, EGD, Hernia Repair, Other. No: Pacemaker Amputation: No Fractures: No - *Social History Smoking Status: Former smoker Tobacco Type: cigarettes Alcohol Intake: never Alcohol Intake Frequency:: 3 or more drinks per day Substance Use Type: marijuana *Occupational Status:: unemployed Housing: care home Household Members: other *Travel in the last 8 weeks: No
--- NOTE | 2020-02-24 20:06 | PC.NURSE ---
Pt is alert to self only. He has slept the majority of the shift. He was easy to arouse but would fall back asleep quickly. Stephens was removed. Urine was clear and pale. He has denied pain. No changes from morning assesment.
[2020-02-24 21:01] LABS: Chloride 117 mmol/L (98-107); Potassium 3.7 mmoL/L (3.5-5.1)
[2020-02-24 21:04] LABS: Anion Gap 10.7 mEq/L (5-15); Blood Urea Nitrogen 30 mg/dl (9-20); Carbon Dioxide 28 mmol/L (22.0-30.0); Creatinine Clearance Estimated 47 mL/min (50-200); Estimated Glomerular Filt Rate 34 ml/min (>60); GFR (African American) 41 ML/MIN (>60); Glucose 122 mg/dl (74-100)
[2020-02-24 21:07] LABS: Sodium 152 mmol/L (136-145)
[2020-02-25] VITALS: BP 98/62; PULSE 91; RESP 16; TEMP 37.3; O2SAT 96
[2020-02-25 04:00] VITALS: BP 108/48; PULSE 84; RESP 22; TEMP 36.9; O2SAT 100
--- NOTE | 2020-02-25 04:46 | PC.NURSE ---
new iv placed this shift. previous iv infiltrated and swelling to right hand noted. elevated extremity. using urinal to void. pt has slept off and on this shift. vss. 1 blood culture was positive for s.coccus with meca gene. placed in contact precautions related to results. call light in reach. will continue to monitor.
[2020-02-25 05:00] VITALS: BMI 33.7
--- NOTE | 2020-02-25 06:00 | XR_ITS ---
PROCEDURE: XR CHEST PORTABLE CLINICAL HISTORY: chf CHF COMPARISON: CT [facility] CT CHEST W/O CONTRAST from 10/16/2016 CR XR CHEST PORTABLE from 01/25/2019 CR XR CHEST PORTABLE from 01/22/2020 CR XR CHEST PORTABLE from 02/23/2020 FINDINGS: There is patient rotation with low lung volumes. There is mild cardiomegaly without failure. Increased density is present in the left hemithorax and may be related to overlying soft tissue attenuation. Non rotated exam may confirm. No acute bony abnormalities. IMPRESSION: Hypoventilation with cardiomegaly. Dictated by: Edmar Sifuentes MD 02/25/2020 06:13 Edmar Sifuentes MD in [place] 02/25/2020 06:13
[2020-02-25 06:31] LABS: Basophils % 0.4 % (0.1-2.0); Eosinophils # 0.3 K/mm3 (0.0-0.4); Eosinophils % 2.2 % (0.1-12.0); Hematocrit 30.7 % (42.0-52.0); Hemoglobin 9.6 g/dL (14.1-18.0); Lymphocytes # 1.5 K/mm3 (0.7-4.5); Lymphocytes % 13.2 % (10-50); Mean Corpuscular HGB Conc 31.2 g/dL (31.8-35.4); Mean Corpuscular Hemoglobin 32.6 pg (27.0-31.2); Mean Corpuscular Volume 104.5 fl (80-94); Mean Platelet Volume 8.7 fl (7.4-10.4); Monocytes # 0.7 K/mm3 (0.1-1.0); Monocytes % 5.9 % (1.7-9.3); Neutrophils # 9.1 K/mm3 (1.8-7.8); Neutrophils % 78.3 % (37.0-80.0); Platelet Count 256 K/mm3 (142-424); Red Blood Count 2.94 M/mm3 (4.60-6.20); Red Cell Distribution Width 14.4 % (11.5-17.5); White Blood Count 11.7 K/mm3 (4.8-10.8)
[2020-02-25 06:39] LABS: Alanine Aminotransferase 13 U/L (12-78); Albumin Level 3.8 g/dl (3.5-5.0); Albumin/Globulin Ratio 1.1 (1.1-1.8); Alkaline Phosphatase 64 U/L (38-126); Anion Gap 12.8 mEq/L (5-15); Aspartate Amino Transferase 23 U/L (17-59); Bilirubin,Total 0.6 mg/dl (0.2-1.3); Blood Urea Nitrogen 32 mg/dl (9-20); Carbon Dioxide 29 mmol/L (22.0-30.0); Chloride 114 mmol/L (98-107); Creatinine Clearance Estimated 47 mL/min (50-200); Estimated Glomerular Filt Rate 34 ml/min (>60); GFR (African American) 41 ML/MIN (>60); Globulin 3.6 g/dL (1.3-3.2); Glucose 106 mg/dl (74-100); Potassium 3.8 mmoL/L (3.5-5.1); Total Protein,Serum 7.4 g/dl (6.3-8.2)
[2020-02-25 06:44] LABS: Sodium 152 mmol/L (136-145)
[2020-02-25 08:00] VITALS: BP 90/42; PULSE 93; RESP 20; TEMP 37.3; O2SAT 93
--- NOTE | 2020-02-25 08:30 | PC.NURSE ---
DR GALARZA MADE AWARE OF SODIUM OF 152 AND LOW BP. NO NEW ORDERS RECEIVED.
--- NOTE | 2020-02-25 09:03 | HMH.PNCARD ---
Subjective Date: 02/25/20 Time: 09:03 Principal diagnosis: ARF, hyperkalemia, hypernatremia Interval history: 59-year-old white male in bed in no acute distress. He does complain of some left leg and right shoulder discomfort that improved with repositioning in the bed. Blood pressure remains around 100 mmHg systolic. Renal function is improving with IV fluids. Hyperkalemia, resolved Hypernatremia, improving Exam Vital signs and Labs for Last 24 Hours: Temp Pulse Resp BP Pulse Ox 99.2 F 93 H 20 90/42 L 93 L 02/25/20 08:00 02/25/20 08:00 02/25/20 08:00 02/25/20 08:00 02/25/20 08:00 Laboratory Results - last 24 hr 02/24/20 20:40: Sodium 152 H*, Potassium 3.7 D, Chloride 117 H, Carbon Dioxide 28, Anion Gap 10.7, BUN 30 H D, Creatinine 2.00 H, Estimated Creat Clear 47, Estimated GFR 34 L, Est GFR ( Amer) 41 L D, Glucose 122 H, Calcium 9.0 02/25/20 05:45: WBC 11.7 H, RBC 2.94 L, Hgb 9.6 L, Hct 30.7 L, MCV 104.5 H, MCH 32.6 H, MCHC 31.2 L, RDW 14.4, Plt Count 256 D, MPV 8.7, Neut % (Auto) 78.3, Lymph % (Auto) 13.2, [place] % (Auto) 5.9, Eos % (Auto) 2.2, Baso % (Auto) 0.4, Neut # (Auto) 9.1 H, Lymph # (Auto) 1.5, [place] # (Auto) 0.7, Eos # (Auto) 0.3, Baso # (Auto) 0.0 02/25/20 05:45: Sodium 152 H*, Potassium 3.8, Chloride 114 H, Carbon Dioxide 29, Anion Gap 12.8, BUN 32 H, Creatinine 2.00 H, Estimated Creat Clear 47, Estimated GFR 34 L, Est GFR ( Amer) 41 L, Glucose 106 H, Calcium 9.0, Total Bilirubin 0.6, AST 23, ALT 13 D, Alkaline Phosphatase 64, Total Protein 7.4 D, Albumin 3.8, Globulin 3.6 H, Albumin/Globulin Ratio 1.1 I & O for Last 24 hours: Intake & Output 02/22/20 02/23/20 02/24/20 02/25/20 11:59 11:59 11:59 11:59 Intake Total 2310 / 2310 1690 / 1690 Output Total 1200 / 1200 2100 / 2100 Balance 1110 / 1110 -410 / -410 Weight 203 lb 187 lb 11.19 oz 190 lb 4 oz Microbiology Reports for the Last 24 Hours: Microbiology 02/23/20 11:40 Blood Blood Culture - Preliminary - *Routine Respiratory Exam Present: CTA bilaterally - *Routine Cardiovascular Exam Present: RRR - *Routine Extremities Exam Absent: cyanosis, clubbing, edema - *Routine Neurological Exam Present: alert, oriented X3 Progress Note: A&P (1) Acute renal failure Status: Acute (2) Chronic heart failure with preserved ejection fraction (HFpEF) Status: Acute (3) Hyperkalemia Status: Acute (4) Hypernatremia Status: Acute (5) HHD (hypertensive heart disease) Status: Chronic (6) HLD (hyperlipidemia) Status: Chronic (7) Schizoaffective disorder Status: Chronic Assessment and Plan for All Diagnoses:: Cardiac status stable. Continue to hold diuretics and losartan until blood pressure consistently greater than 120 mmHg systolic. Then would begin reinstituting diuretics and losartan slowly if renal function has returned to baseline. Anemia, partly dilutional but consistent with patient's prior baseline. Nothing to add at this time. If patient still here on friday, then will visit again to adjust meds.
--- NOTE | 2020-02-25 09:19 | CT_ITS ---
PROCEDURE: CT CHEST WO CON CLINICAL INDICATION: chf/soa Shortness of air, congestive heart failure, acute renal failure COMPARISON: CT [facility] CT CHEST W/O CONTRAST from 10/16/2016 TECHNIQUE: Axial images obtained with sagittal and coronal reformats. All CT scans at the facility use one or more dose reduction, viz: automated exposure control, ma/kV adjustment per patient size (including targeted exams where dose is matched to indication, i.e. head), or iterative reconstruction technique. FINDINGS: HEART AND MEDIASTINAL STRUCTURES: Coronary artery stent is present. There is mild cardiomegaly. No evidence of aortic aneurysm. No mediastinal or hilar mass or adenopathy. LUNGS AND PLEURAL SPACES: There are low lung volumes with dependent changes in the lung bases. There is faint ground-glass attenuation in the upper lobes possibly due to underlying edema. Motion artifact also adds to this. No effusions. No dense lobar consolidation. There is semilunar appearance of the trachea with mild narrowing of the mainstem bronchi suggesting tracheal malacia BONY STRUCTURES: Mild wedging of T8 not significantly changed. UPPER ABDOMEN: Slight increased density within the gallbladder posteriorly and may be related to sludge and/or small stones. ADDITIONAL FINDINGS: There are low lung volumes which may also add to extension way elizabeth of the lung markings. IMPRESSION: Faint ground-glass attenuation in the upper lobes which could be related to edema and or faint infiltrate. This is felt to be accentuated by motion artifact. Possible tracheal bronchomalacia Possible sludge or gallstones. Dictated by: Edmar Sifuentes MD 02/25/2020 11:23 Edmar Sifuentes MD in [place] 02/25/2020 11:23
--- NOTE | 2020-02-25 09:21 | HMH.ACPN2 ---
Internal Medicine - PN: Subj *Date: 02/25/20 *Time: 09:21 Interval history: pt laying in bed Exam Vital signs and Labs for Last 24 Hours: Temp Pulse Resp BP Pulse Ox 99.2 F 93 H 20 90/42 L 93 L 02/25/20 08:00 02/25/20 08:00 02/25/20 08:00 02/25/20 08:00 02/25/20 08:00 Laboratory Results - last 24 hr 02/24/20 20:40: Sodium 152 H*, Potassium 3.7 D, Chloride 117 H, Carbon Dioxide 28, Anion Gap 10.7, BUN 30 H D, Creatinine 2.00 H, Estimated Creat Clear 47, Estimated GFR 34 L, Est GFR ( Amer) 41 L D, Glucose 122 H, Calcium 9.0 02/25/20 05:45: WBC 11.7 H, RBC 2.94 L, Hgb 9.6 L, Hct 30.7 L, MCV 104.5 H, MCH 32.6 H, MCHC 31.2 L, RDW 14.4, Plt Count 256 D, MPV 8.7, Neut % (Auto) 78.3, Lymph % (Auto) 13.2, [place] % (Auto) 5.9, Eos % (Auto) 2.2, Baso % (Auto) 0.4, Neut # (Auto) 9.1 H, Lymph # (Auto) 1.5, [place] # (Auto) 0.7, Eos # (Auto) 0.3, Baso # (Auto) 0.0 02/25/20 05:45: Sodium 152 H*, Potassium 3.8, Chloride 114 H, Carbon Dioxide 29, Anion Gap 12.8, BUN 32 H, Creatinine 2.00 H, Estimated Creat Clear 47, Estimated GFR 34 L, Est GFR ( Amer) 41 L, Glucose 106 H, Calcium 9.0, Total Bilirubin 0.6, AST 23, ALT 13 D, Alkaline Phosphatase 64, Total Protein 7.4 D, Albumin 3.8, Globulin 3.6 H, Albumin/Globulin Ratio 1.1 I & O for Last 24 hours: Intake & Output 02/22/20 02/23/20 02/24/20 02/25/20 11:59 11:59 11:59 11:59 Intake Total 2310 / 2310 1690 / 1690 Output Total 1200 / 1200 2100 / 2100 Balance 1110 / 1110 -410 / -410 Weight 203 lb 187 lb 11.19 oz 190 lb 4 oz Microbiology Reports for the Last 24 Hours: Microbiology 02/23/20 11:40 Blood Blood Culture - Preliminary - Constitutional no acute distress, morbidly obese - *Routine HEENT Exam Head: Present: normocephalic Eye: Present: PERRL ENT: Present: mucous membranes moist - *Routine Neck Exam Present: supple. Absent: lymphadenopathy - *Routine Respiratory Exam Present: rhonchi - *Routine Cardiovascular Exam Present: RRR - *Routine Abdominal Exam Present: soft, normoactive bowel sounds. Absent: tenderness - *Routine Extremities Exam Present: normal capillary refill. Absent: cyanosis, clubbing, edema - *Routine Skin Exam Present: warm. Absent: rash - *Routine Neurological Exam Present: alert - Routine Psychiatric Exam Present: normal affect Assessment and Plan (1) Acute renal failure Status: Acute Qualifiers: Acute renal failure type: unspecified Qualified Code(s): N17.9 - Acute kidney failure, unspecified Category: Medical Code(s): N17.9 - Acute kidney failure, unspecified (2) Chronic heart failure with preserved ejection fraction (HFpEF) Status: Acute Category: Medical Code(s): I50.32 - Chronic diastolic (congestive) heart failure (3) Hyperkalemia Status: Acute Category: Medical Code(s): E87.5 - Hyperkalemia (4) Hypernatremia Status: Acute Category: Medical Code(s): E87.0 - Hyperosmolality and hypernatremia (5) HHD (hypertensive heart disease) Status: Chronic Qualifiers: Heart failure presence: without heart failure Qualified Code(s): I11.9 - Hypertensive heart disease without heart failure Category: Medical Code(s): I11.9 - Hypertensive heart disease without heart failure (6) HLD (hyperlipidemia) Status: Chronic Qualifiers: Hyperlipidemia type: mixed hyperlipidemia Qualified Code(s): E78.2 - Mixed hyperlipidemia Category: Medical Code(s): E78.5 - Hyperlipidemia, unspecified (7) Schizoaffective disorder Status: Chronic Qualifiers: Schizoaffective disorder type: unspecified Qualified Code(s): F25.9 - Schizoaffective disorder, unspecified Category: Medical Code(s): F25.9 - Schizoaffective disorder, unspecified - Assessment and plan all Dx Assessment and Plan for all problems:: rounded with dr huerta all orders per dr huerta ct chest w/o contrast cardiology consult
[2020-02-25 13:32] VITALS: BMI 33.5
--- NOTE | 2020-02-25 13:51 | DIET.NUTRFU ---
Confirmed with Jean Paul pt is on mechanical soft diet with nectar thickened liquids there, altered dt dysphagia in the past few weeks. Pt with hx DM, appears to be well controlled. BG wnl-moderate- ~130. Will not add consistent carbohydrate diet at this time dt likely inadequate energy intakes with AMS and already restrictive diet. Diet altered to low sodium/soft mechanical/nectar thickened liquids with sugar free beverages/desserts. Note Aspiration precautions. Pt requires full assistance feeding. Cueing/encouragement and meal/supplement offers with meal refusals appreciated. Please note pt with schizoaffective disorder, no polydipsia noted at this time, will monitor. Weight is stable, renal function and electrolyte disturbances improving.
[2020-02-25 15:48] VITALS: BP 106/56; PULSE 79; RESP 18; TEMP 37.1; O2SAT 100
--- NOTE | 2020-02-25 19:00 | PC.NURSE ---
A&O TO NAME AND BIRTHDAY. PT HAS TOLERATED 2L NC WELL THROUGHOUT SHIFT. RESPIRATIONS REGULAR AND UNLABORED. LUNG SOUNDS DIMINISHED THROUGHOUT. ACTIVE BOWEL SOUNDS HEARD IN ALL 4 QUADRANTS. SOFT AND NONTENDER ABDOMEN. NO BM NOTED. PT VOIDS PER URINAL AT TIMES W CLEAR YELLOW URINE NOTED. NO EDEMA NOTED. [employer] EQUAL. +2 PULSES NOTED THROUGHOUT. NO REPORTS OF PAIN THROUGHOUT SHIFT. PT HAS RECEIVED SEVERAL ANTIBIOTICS TODAY AND TOLERATED THEM ALL WELL. BED ALARM IN PLACE TO PROMOTE SAFETY. CALL LIGHT WITHIN REACH. BED IN LOWEST POSITION. VSS. WILL CONTINUE TO MONITOR.
--- NOTE | 2020-02-26 00:29 | PC.NURSE ---
1100 -Pt c/o being unable to urinate, states I have peed all day . Pt abdomen large, unable to palpate distention of bladder. Bedside bladder scanner obtained and shows 466 cc of urine in bladder. Dr. Travis notified of this, states to insert akers and keep in over night. 1130 - 16 Fr Akers cath inserted using aseptic technique @ 1130, pt had 500 cc of clear yellow urine out at this time. 10 cc of sterile water instilled and tubing secured to pt's leg. Urine specimen sent to lab for collection per protocol.
[2020-02-26 01:34] LABS: Microscopic, Urine URINE MICROSCOPIC (MICROSCOPIC)
--- NOTE | 2020-02-26 01:34 | PC.NURSE ---
He is asleep. No signs of pain or distress.
[2020-02-26 01:37] LABS: Appearance,Urine CLEAR (Clear); Bilirubin,Urine Negative (Negative); Blood, Urine 1+ (Negative); Color,Urine YELLOW (Yellow); Glucose,Urine (UA) Negative (Negative); Ketones,Urine Negative (Negative); Leukocyte Esterase,Urine Negative (Negative); Nitrate,Urine Negative (Negative); PH,Urine 5.5 (5.0-8.5); Protein,Urine Negative (Negative); Specific Gravity, Urine 1.025 (1.005-1.030); Urobilinogen,Urine 0.2 EU/dl (0.2)
[2020-02-26 04:00] VITALS: BP 143/70; PULSE 91; RESP 19; TEMP 36.9; O2SAT 97
[2020-02-26 05:00] VITALS: BMI 34.7
--- NOTE | 2020-02-26 06:00 | XR_ITS ---
PROCEDURE: XR CHEST PORTABLE CLINICAL HISTORY: chf Congestive heart failure, renal failure COMPARISON: CR XR CHEST PORTABLE from 01/22/2020 CR XR CHEST PORTABLE from 02/23/[address] CHEST WO CON from 02/25/2020 CR XR CHEST PORTABLE from 02/25/2020 FINDINGS: Mild cardiomegaly without failure. Hypoventilation. There is prominence of the mediastinum consistent with mediastinal lipomatosis as seen on recent chest CT. The lungs are clear without infiltrates, suspicious nodules, or pleural effusions. No acute bony abnormalities. IMPRESSION: Low lung volumes with cardiomegaly. No change with no acute finding Dictated by: Edmar Sifuentes MD 02/26/2020 06:10 Edmar Sifuentes MD in [facility] 02/26/2020 06:10
[2020-02-26 06:06] LABS: Basophils % 0.4 % (0.1-2.0); Eosinophils # 0.3 K/mm3 (0.0-0.4); Hematocrit 30.6 % (42.0-52.0); Hemoglobin 9.4 g/dL (14.1-18.0); Lymphocytes # 1.3 K/mm3 (0.7-4.5); Lymphocytes % 12.6 % (10-50); Mean Corpuscular HGB Conc 30.6 g/dL (31.8-35.4); Mean Corpuscular Hemoglobin 32.8 pg (27.0-31.2); Mean Corpuscular Volume 107.1 fl (80-94); Mean Platelet Volume 8.7 fl (7.4-10.4); Monocytes # 0.5 K/mm3 (0.1-1.0); Monocytes % 4.5 % (1.7-9.3); Neutrophils # 8.1 K/mm3 (1.8-7.8); Neutrophils % 79.5 % (37.0-80.0); Platelet Count 216 K/mm3 (142-424); Red Blood Count 2.85 M/mm3 (4.60-6.20); Red Cell Distribution Width 14.3 % (11.5-17.5); White Blood Count 10.1 K/mm3 (4.8-10.8)
[2020-02-26 06:20] LABS: Anion Gap 10.8 mEq/L (5-15); Blood Urea Nitrogen 22 mg/dl (9-20); Calcium 8.6 mg/dl (8.4-10.2); Carbon Dioxide 30 mmol/L (22.0-30.0); Chloride 109 mmol/L (98-107); Creatinine Clearance Estimated 61 mL/min (50-200); Estimated Glomerular Filt Rate 44 ml/min (>60); GFR (African American) 53 ML/MIN (>60); Glucose 111 mg/dl (74-100); Potassium 3.8 mmoL/L (3.5-5.1); Sodium 146 mmol/L (136-145)
[2020-02-26 08:00] VITALS: BP 112/56; PULSE 90; RESP 20; TEMP 36.4; O2SAT 98
--- NOTE | 2020-02-26 09:41 | HMH.ACPN2 ---
Internal Medicine - PN: Subj *Date: 02/26/20 *Time: 09:41 Interval history: pt with slow improvement - more alert Exam Vital signs and Labs for Last 24 Hours: Temp Pulse Resp BP Pulse Ox 98.5 F 91 H 19 143/70 H 97 02/26/20 04:00 02/26/20 04:00 02/26/20 04:00 02/26/20 04:00 02/26/20 04:00 Laboratory Results - last 24 hr 02/26/20 01:28: Urine Color Yellow, Urine Appearance Clear, Urine pH 5.5, Ur Specific [place] 1.025, Urine Protein Negative, Urine Glucose (UA) Negative, Urine Ketones Negative, Urine Blood 1+, Urine Nitrate Negative, Urine Bilirubin Negative, Urine Urobilinogen 0.2, Ur Leukocyte Esterase Negative, Urine RBC 5-10, Urine WBC 5-10, Ur Renal Epithelial Cell 3-5 02/26/20 05:35: WBC 10.1, RBC 2.85 L, Hgb 9.4 L, Hct 30.6 L, MCV 107.1 H, MCH 32.8 H, MCHC 30.6 L, RDW 14.3, Plt Count 216, MPV 8.7, Neut % (Auto) 79.5, Lymph % (Auto) 12.6, [place] % (Auto) 4.5, Eos % (Auto) 3.0, Baso % (Auto) 0.4, Neut # (Auto) 8.1 H, Lymph # (Auto) 1.3, [place] # (Auto) 0.5, Eos # (Auto) 0.3, Baso # (Auto) 0.0 02/26/20 05:35: Sodium 146 H, Potassium 3.8, Chloride 109 H, Carbon Dioxide 30, Anion Gap 10.8, BUN 22 H D, Creatinine 1.60 H, Estimated Creat Clear 61, Estimated GFR 44 L, Est GFR ( Amer) 53 L D, Glucose 111 H, Calcium 8.6 I & O for Last 24 hours: Intake & Output 02/23/20 02/24/20 02/25/20 02/26/20 11:59 11:59 11:59 11:59 Intake Total 2310 / 2310 1840 / 1840 1705 / 1705 Output Total 1200 / 1200 2600 / 2600 1600 / 1600 Balance 1110 / 1110 -760 / -760 105 / 105 Weight 203 lb 187 lb 11.19 oz 190 lb 4 oz 196 lb 3.382 oz Microbiology Reports for the Last 24 Hours: Microbiology 02/23/20 11:40 Blood Blood Culture - Preliminary Gram Positive Cocci 02/23/20 11:40 Blood Blood Culture - Preliminary NO GROWTH AFTER 48 HOURS - Constitutional no acute distress, obese - *Routine HEENT Exam Head: Present: normocephalic Eye: Present: EOMI, PERRL ENT: Present: mucous membranes dry - *Routine Neck Exam Absent: JVD - *Routine Respiratory Exam Present: decreased breath sounds - *Routine Cardiovascular Exam Present: RRR - *Routine Abdominal Exam Present: soft - *Routine Extremities Exam Present: edema. Absent: calf tenderness - *Routine Skin Exam Present: intact - *Routine Neurological Exam Present: alert. Absent: altered mental status - Routine Psychiatric Exam Present: normal affect Assessment and Plan (1) Acute renal failure Status: Acute Qualifiers: Acute renal failure type: unspecified Qualified Code(s): N17.9 - Acute kidney failure, unspecified Category: Medical Code(s): N17.9 - Acute kidney failure, unspecified (2) Chronic heart failure with preserved ejection fraction (HFpEF) Status: Acute Category: Medical Code(s): I50.32 - Chronic diastolic (congestive) heart failure (3) Hyperkalemia Status: Acute Category: Medical Code(s): E87.5 - Hyperkalemia (4) Hypernatremia Status: Acute Category: Medical Code(s): E87.0 - Hyperosmolality and hypernatremia (5) HHD (hypertensive heart disease) Status: Chronic Qualifiers: Heart failure presence: without heart failure Qualified Code(s): I11.9 - Hypertensive heart disease without heart failure Category: Medical Code(s): I11.9 - Hypertensive heart disease without heart failure (6) HLD (hyperlipidemia) Status: Chronic Qualifiers: Hyperlipidemia type: mixed hyperlipidemia Qualified Code(s): E78.2 - Mixed hyperlipidemia Category: Medical Code(s): E78.5 - Hyperlipidemia, unspecified (7) Schizoaffective disorder Status: Chronic Qualifiers: Schizoaffective disorder type: unspecified Qualified Code(s): F25.9 - Schizoaffective disorder, unspecified Category: Medical Code(s): F25.9 - Schizoaffective disorder, unspecified (8) Anemia Status: Acute Qualifiers: Anemia type: unspecified
[2020-02-26 16:00] VITALS: BP 124/69; PULSE 78; RESP 19; TEMP 36.6; O2SAT 100
--- NOTE | 2020-02-26 17:46 | PC.NURSE ---
Pt has been pleasant and cooperative this shift. A&O X4. No complaints of pain or SOA. Pt is receiving O2 via NC @ 2 LPM with sats. >90%. Lungs CTA. Skin is C/D/I. No edema noted. Pt ambulates with stand-by assistance. F/C is patent and draining clear, yellow urine without issue. No BM this shift. 20 G peripheral IV in the RT forearm is patent and infusing 0.45% NS @ 75 ML/HR. VSS. Call light within reach. Will continue to monitor.
[2020-02-26 20:00] VITALS: BP 130/71; PULSE 98; RESP 20; TEMP 36.6; O2SAT 100
[2020-02-27 04:00] VITALS: BP 132/71; PULSE 96; RESP 18; TEMP 36.7; O2SAT 98
[2020-02-27 05:00] VITALS: BMI 34.7
--- NOTE | 2020-02-27 06:00 | XR_ITS ---
PROCEDURE: XR CHEST PORTABLE CLINICAL HISTORY: chf COMPARISON: CR XR CHEST PORTABLE from 02/23/[address] CHEST WO CON from 02/25/2020 CR XR CHEST PORTABLE from 02/25/2020 CR XR CHEST PORTABLE from 02/26/2020 FINDINGS: The patient is morbidly obese and this is a poor inspiratory effort. There are minimal left perihilar and infrahilar ill-defined opacities not definitely seen on the previous chest film. There is mild generalized cardiomegaly but there is no pulmonary congestion and there is no pleural fluid. IMPRESSION: Poor inspiration causing some crowding of vascular markings at the lung bases but there are more prominent opacities at the left base than seen on the previous chest film and early diffuse pneumonia cannot be excluded. There is no obvious evidence of congestive failure Dictated by: Dr. Lorenzo Baker MD 02/27/2020 09:30 Dr. Lorenzo Baker MD in [facility] 02/27/2020 09:30
[2020-02-27 06:17] LABS: Basophils % 0.3 % (0.1-2.0); Eosinophils # 0.3 K/mm3 (0.0-0.4); Eosinophils % 3.1 % (0.1-12.0); Hemoglobin 8.9 g/dL (14.1-18.0); Lymphocytes # 1.3 K/mm3 (0.7-4.5); Lymphocytes % 13.4 % (10-50); Mean Corpuscular HGB Conc 30.9 g/dL (31.8-35.4); Mean Corpuscular Hemoglobin 32.5 pg (27.0-31.2); Mean Corpuscular Volume 105.2 fl (80-94); Mean Platelet Volume 8.5 fl (7.4-10.4); Monocytes # 0.5 K/mm3 (0.1-1.0); Monocytes % 5.2 % (1.7-9.3); Neutrophils # 7.5 K/mm3 (1.8-7.8); Neutrophils % 77.9 % (37.0-80.0); Platelet Count 200 K/mm3 (142-424); Red Blood Count 2.73 M/mm3 (4.60-6.20); Red Cell Distribution Width 14.6 % (11.5-17.5); White Blood Count 9.6 K/mm3 (4.8-10.8)
[2020-02-27 06:27] LABS: Hematocrit 28.7 % (42.0-52.0)
[2020-02-27 06:36] LABS: Anion Gap 9.6 mEq/L (5-15); Blood Urea Nitrogen 13 mg/dl (9-20); Calcium 8.4 mg/dl (8.4-10.2); Carbon Dioxide 29 mmol/L (22.0-30.0); Chloride 108 mmol/L (98-107); Creatinine Clearance Estimated 75 mL/min (50-200); Estimated Glomerular Filt Rate 56 ml/min (>60); GFR (African American) 68 ML/MIN (>60); Glucose 109 mg/dl (74-100); Potassium 3.6 mmoL/L (3.5-5.1); Sodium 143 mmol/L (136-145)
--- NOTE | 2020-02-27 06:38 | PC.NURSE ---
No acute changes. Pt has not slept well. C/O constipation early in shift. Has had a medium BM since then. Pt remains on O2 2L NC. Lungs are diminished. Pt has been tachycardic this shift. Other VSS. Medications administered per apr. No other concerns at this time. Will continue to monitor.
[2020-02-27 08:00] VITALS: BP 135/79; PULSE 92; RESP 18; TEMP 36.4; O2SAT 100
--- NOTE | 2020-02-27 09:51 | HMH.ACPN2 ---
Internal Medicine - PN: Subj *Date: 02/27/20 *Time: 09:00 Interval history: doing ok and has improved renal function - sleeping Exam Vital signs and Labs for Last 24 Hours: Temp Pulse Resp BP Pulse Ox 97.5 F L 92 H 18 135/79 100 02/27/20 08:00 02/27/20 08:00 02/27/20 08:00 02/27/20 08:00 02/27/20 08:00 Laboratory Results - last 24 hr 02/27/20 05:45: WBC 9.6, RBC 2.73 L, Hgb 8.9 L, Hct 28.7 L, MCV 105.2 H, MCH 32.5 H, MCHC 30.9 L, RDW 14.6, Plt Count 200, MPV 8.5, Neut % (Auto) 77.9, Lymph % (Auto) 13.4, [place] % (Auto) 5.2, Eos % (Auto) 3.1, Baso % (Auto) 0.3, Neut # (Auto) 7.5, Lymph # (Auto) 1.3, [place] # (Auto) 0.5, Eos # (Auto) 0.3, Baso # (Auto) 0.0 02/27/20 05:45: Sodium 143, Potassium 3.6, Chloride 108 H, Carbon Dioxide 29, Anion Gap 9.6, BUN 13 D, Creatinine 1.30 H, Estimated Creat Clear 75, Estimated GFR 56 L, Est GFR ( Amer) 68 D, Glucose 109 H, Calcium 8.4 I & O for Last 24 hours: Intake & Output 02/24/20 02/25/20 02/26/20 02/27/20 11:59 11:59 11:59 11:59 Intake Total 2310 / 2310 1840 / 1840 2065 / 2065 2469 / 2469 Output Total 1200 / 1200 2600 / 2600 1600 / 1600 1300 / 1300 Balance 1110 / 1110 -760 / -760 465 / 465 1169 / 1169 Weight 187 lb 11.19 oz 190 lb 4 oz 196 lb 3.382 oz 196 lb 3.382 oz Microbiology Reports for the Last 24 Hours: Microbiology 02/23/20 11:40 Blood Blood Culture - Preliminary Aerococcus viridans - Constitutional no acute distress, obese - *Routine HEENT Exam Head: Present: normocephalic Eye: Present: EOMI, PERRL ENT: Present: mucous membranes dry - *Routine Neck Exam Present: supple - *Routine Respiratory Exam Present: decreased breath sounds - *Routine Cardiovascular Exam Present: RRR - *Routine Abdominal Exam Present: soft - *Routine Extremities Exam Absent: calf tenderness - *Routine Skin Exam Present: intact - *Routine Neurological Exam Present: alert, CN II-XII intact - Routine Psychiatric Exam Present: unable to assess Assessment and Plan (1) Acute renal failure Status: Acute Qualifiers: Acute renal failure type: unspecified Qualified Code(s): N17.9 - Acute kidney failure, unspecified Category: Medical Code(s): N17.9 - Acute kidney failure, unspecified (2) Chronic heart failure with preserved ejection fraction (HFpEF) Status: Acute Category: Medical Code(s): I50.32 - Chronic diastolic (congestive) heart failure (3) Hyperkalemia Status: Acute Category: Medical Code(s): E87.5 - Hyperkalemia (4) Hypernatremia Status: Acute Category: Medical Code(s): E87.0 - Hyperosmolality and hypernatremia (5) HHD (hypertensive heart disease) Status: Chronic Qualifiers: Heart failure presence: without heart failure Qualified Code(s): I11.9 - Hypertensive heart disease without heart failure Category: Medical Code(s): I11.9 - Hypertensive heart disease without heart failure (6) HLD (hyperlipidemia) Status: Chronic Qualifiers: Hyperlipidemia type: mixed hyperlipidemia Qualified Code(s): E78.2 - Mixed hyperlipidemia Category: Medical Code(s): E78.5 - Hyperlipidemia, unspecified (7) Schizoaffective disorder Status: Chronic Qualifiers: Schizoaffective disorder type: unspecified Qualified Code(s): F25.9 - Schizoaffective disorder, unspecified Category: Medical Code(s): F25.9 - Schizoaffective disorder, unspecified (8) Anemia Status: Acute Qualifiers: Anemia type: unspecified type Qualified Code(s): D64.9 - Anemia, unspecified Category: Medical Code(s): D64.9 - Anemia, unspecified
--- NOTE | 2020-02-27 11:24 | P.PN_ITS ---
Internal Medicine - PN: Subj *Date: 02/27/20 *Time: 11:24 Exam Vital signs and Labs for Last 24 Hours: Temp Pulse Resp BP Pulse Ox 97.5 F L 92 H 18 135/79 100 02/27/20 08:00 02/27/20 08:00 02/27/20 08:00 02/27/20 08:00 02/27/20 08:00 Laboratory Results - last 24 hr 02/27/20 05:45: WBC 9.6, RBC 2.73 L, Hgb 8.9 L, Hct 28.7 L, MCV 105.2 H, MCH 32.5 H, MCHC 30.9 L, RDW 14.6, Plt Count 200, MPV 8.5, Neut % (Auto) 77.9, Lymph % (Auto) 13.4, [place] % (Auto) 5.2, Eos % (Auto) 3.1, Baso % (Auto) 0.3, Neut # (Auto) 7.5, Lymph # (Auto) 1.3, [place] # (Auto) 0.5, Eos # (Auto) 0.3, Baso # (Auto) 0.0 02/27/20 05:45: Sodium 143, Potassium 3.6, Chloride 108 H, Carbon Dioxide 29, Anion Gap 9.6, BUN 13 D, Creatinine 1.30 H, Estimated Creat Clear 75, Estimated GFR 56 L, Est GFR ( Amer) 68 D, Glucose 109 H, Calcium 8.4 I & O for Last 24 hours: Intake & Output 02/24/20 02/25/20 02/26/20 02/27/20 23:59 23:59 23:59 23:59 Intake Total 3384 / 3640 2471 / 2471 2589 / 2589 240 / 240 Output Total 3300 / 3300 1000 / 1500 1100 / 1100 1300 / 1300 Balance 84 / 340 1471 / 971 1489 / 1489 -1060 / -1060 Weight 85.139 kg 86 kg 89 kg 89 kg Microbiology Reports for the Last 24 Hours: Microbiology 02/23/20 11:40 Blood Blood Culture - Preliminary Aerococcus viridans Assessment and Plan (1) Acute renal failure Status: Acute Qualifiers: Acute renal failure type: unspecified Qualified Code(s): N17.9 - Acute kidney failure, unspecified Category: Medical Code(s): N17.9 - Acute kidney failure, unspecified (2) Chronic heart failure with preserved ejection fraction (HFpEF) Status: Acute Category: Medical Code(s): I50.32 - Chronic diastolic (congestive) heart failure (3) Hyperkalemia Status: Acute Category: Medical Code(s): E87.5 - Hyperkalemia (4) Hypernatremia Status: Acute Category: Medical Code(s): E87.0 - Hyperosmolality and hypernatremia (5) HHD (hypertensive heart disease) Status: Chronic Qualifiers: Heart failure presence: without heart failure Qualified Code(s): I11.9 - Hypertensive heart disease without heart failure Category: Medical Code(s): I11.9 - Hypertensive heart disease without heart failure (6) HLD (hyperlipidemia) Status: Chronic Qualifiers: Hyperlipidemia type: mixed hyperlipidemia Qualified Code(s): E78.2 - Mixed hyperlipidemia Category: Medical Code(s): E78.5 - Hyperlipidemia, unspecified (7) Schizoaffective disorder Status: Chronic Qualifiers: Schizoaffective disorder type: unspecified Qualified Code(s): F25.9 - Schizoaffective disorder, unspecified Category: Medical Code(s): F25.9 - Schizoaffective disorder, unspecified (8) Anemia Status: Acute Qualifiers: Anemia type: unspecified type Qualified Code(s): D64.9 - Anemia, unspecified Category: Medical Code(s): D64.9 - Anemia, unspecified The patient's infection will respond to the chosen ABx?: Yes Is the patient receiving the right drug, dose, and route?: Yes Could a more targeted ABx be ordered?: No (AEROCOCCUS VIRIDANS IN 1 BLOOD CX. PATIENT AFEBRILE AND WBC DECREASED )
[2020-02-27 16:00] VITALS: BP 118/63; PULSE 82; RESP 18; TEMP 36.9; O2SAT 100
--- NOTE | 2020-02-27 17:59 | PC.NURSE ---
Pt has been pleasant and somewhat cooperative this shift. Pt is upset that he is receiving thickened liquids. A&O X4. No complaints of pain or SOA. Pt is receiving O2 via NC @ 2 LPM with sats. >90%. Lungs CTA. Skin is C/D/I. No edema noted. Pt ambulates with assistance X2 and pt sat on the side of the bed for a couple hours today. F/C is patent and draining clear, yellow urine without issue. No BM this shift. 20 G peripheral IV in the RT forearm was DC'd and a new 20 G peripheral IV was inserted in the LT AC. It is patent and infusing 0.45% NS @ 75 ML/HR. VSS. Call light within reach. Will continue to monitor.
[2020-02-27 20:00] VITALS: BP 108/58; PULSE 83; RESP 18; TEMP 36.8; O2SAT 96
[2020-02-28 04:00] VITALS: BP 110/62; PULSE 87; RESP 22; TEMP 36.9; O2SAT 94
--- NOTE | 2020-02-28 04:38 | PC.NURSE ---
no acute changes since prior assessment, pt has rested on and off this shift, has complained about his liquids having to be thickened, remains on 2L NC with O2 sats 94-96%, HR 83-87, no complaints of chest pain or SOA, lungs CTA, akers patent and draining clear yellow urine
[2020-02-28 05:00] VITALS: BMI 35.0
--- NOTE | 2020-02-28 06:00 | XR_ITS ---
PROCEDURE: XR CHEST PORTABLE CLINICAL HISTORY: chf Congestive heart failure COMPARISON: CT CT CHEST WO CON from 02/25/2020 CR XR CHEST PORTABLE from 02/25/2020 CR XR CHEST PORTABLE from 02/26/2020 CR XR CHEST PORTABLE from 02/27/2020 FINDINGS: Cardiomegaly with prominence of the mediastinum unchanged. The lungs are clear without infiltrates, suspicious nodules, or pleural effusions. No acute bony abnormalities. IMPRESSION: Cardiomegaly otherwise negative Dictated by: Edmar Sifuentes MD 02/28/2020 06:20 Edmar Sifuentes MD in [facility] 02/28/2020 06:20
--- NOTE | 2020-02-28 06:00 | PC.NURSE ---
pt refused to have labs drawn this morning
[2020-02-28 08:00] VITALS: BP 120/65; PULSE 87; RESP 18; TEMP 36.5; O2SAT 98
[2020-02-28 09:11] LABS: Basophils # 0.1 K/mm3 (0-0.2); Basophils % 0.4 % (0.1-2.0); Eosinophils # 0.3 K/mm3 (0.0-0.4); Eosinophils % 2.6 % (0.1-12.0); Hematocrit 31.2 % (42.0-52.0); Hemoglobin 9.8 g/dL (14.1-18.0); Lymphocytes # 1.1 K/mm3 (0.7-4.5); Lymphocytes % 9.5 % (10-50); Mean Corpuscular HGB Conc 31.2 g/dL (31.8-35.4); Mean Corpuscular Hemoglobin 33.6 pg (27.0-31.2); Mean Corpuscular Volume 107.5 fl (80-94); Mean Platelet Volume 8.5 fl (7.4-10.4); Monocytes # 0.4 K/mm3 (0.1-1.0); Monocytes % 3.3 % (1.7-9.3); Neutrophils # 9.8 K/mm3 (1.8-7.8); Neutrophils % 84.2 % (37.0-80.0); Platelet Count 192 K/mm3 (142-424); Red Cell Distribution Width 14.6 % (11.5-17.5); White Blood Count 11.6 K/mm3 (4.8-10.8)
--- NOTE | 2020-02-28 09:19 | HMH.DCSUM ---
General - General Admission date:: 02/23/20 Discharge date: 02/28/20 HPI HPI: 59-year-old male sent from [facility] [place] presenting to the emergency department with rhonchi, cough,and fever. [facility] he was not responding to questions when asked and seems he is off. nurse states he was just staring at her and was not answering. Per ed When EMS arrived he was febrile to 101. pt wears o2 at [facility]. Patient uses a wheelchair. Has a history of aspiration pneumonia and is noncompliant with diet. Pt admitted for more evaluation and cardiology consult for chf. Hospital Course Hospital Course: Laboratory Tests 02/23/20 02/23/20 02/23/20 11:40 11:40 11:40 WBC 15.6 H RBC 3.82 L Hgb 12.7 L Hct 39.6 L MCV 103.5 H MCH 33.2 H MCHC 32.0 RDW 14.5 Plt Count 414 MPV 8.3 Neut % (Auto) 83.4 H Lymph % (Auto) 11.5 [place] % (Auto) 4.4 Eos % (Auto) 0.2 Baso % (Auto) 0.6 Neut # (Auto) 13.0 H Lymph # (Auto) 1.8 [place] # (Auto) 0.7 Eos # (Auto) 0.0 Baso # (Auto) 0.1 Total Counted 100 Neutrophils % (Manual) 76 Band Neutrophils % 4.0 Lymphocytes % (Manual) 17 Monocytes % (Manual) 3 Platelet Estimate Normal Anisocytosis 1+ Macrocytosis 1+ VBG pH 7.34 VBG pCO2 49.0 VBG pO2 189.7 H VBG HCO3 25.6 VBG Total CO2 27.1 H VBG O2 Saturation 99.4 H VBG Base Excess -0.2 Sodium 155 H* Potassium 6.6 H* Chloride 117 H Carbon Dioxide 29 Anion Gap 15.6 H BUN 51 H Creatinine 3.20 H Estimated Creat Clear 32 Estimated GFR 20 L Est GFR ( Amer) 24 L Glucose 154 H Lactate Calcium 10.9 H Total Bilirubin 0.5 AST 25 ALT 18 Alkaline Phosphatase 93 Total Protein 10.2 H Albumin 5.0 Globulin 5.2 H Albumin/Globulin Ratio 1.0 L Procalcitonin 0.265 Urine Color Urine Appearance Urine pH Ur Specific [place] Urine Protein Urine Glucose (UA) Urine Ketones Urine Blood Urine Nitrate Urine Bilirubin Urine Urobilinogen Ur Leukocyte Esterase Urine RBC Urine WBC Ur Squamous Epith Cells Ur Renal Epithelial Cell SARS-CoV-2 IgG Ab (Rapid) SARS-CoV-2 IgM Ab (Rapid) 02/23/20 02/23/20 02/23/20 11:40 11:40 13:45 WBC RBC Hgb Hct MCV MCH MCHC RDW Plt Count MPV Neut % (Auto) Lymph % (Auto) [place] % (Auto) Eos % (Auto) Baso % (Auto) Neut # (Auto) Lymph # (Auto) [place] # (Auto) Eos # (Auto) Baso # (Auto) Total Counted Neutrophils % (Manual) Band Neutrophils % Lymphocytes % (Manual) Monocytes % (Manual) Platelet Estimate Anisocytosis Macrocytosis VBG pH VBG pCO2 VBG pO2 VBG HCO3 VBG Total CO2 VBG O2 Saturation VBG Base Excess Sodium Potassium Chloride Carbon Dioxide Anion Gap BUN Creatinine Estimated Creat Clear Estimated GFR Est GFR ( Amer) Glucose Lactate 1.2 Calcium Total Bilirubin AST ALT Alkaline Phosphatase Total Protein Albumin Globulin Albumin/Globulin Ratio Procalcitonin Urine Color Yellow Urine Appearance Clear Urine pH 5.5 Ur Specific [place] >= 1.030 Urine Protein 3+ Urine Glucose (UA) Negative Urine Ketones Negative Urine Blood 2+ Urine Nitrate Negative Urine Bilirubin Negative Urine Urobilinogen 0.2 Ur Leukocyte Esterase Negative Urine RBC 5-10 Urine WBC 3-5 Ur Squamous Epith Cells 3-5 Ur Renal Epithelial Cell SARS-CoV-2 IgG Ab (Rapid) Negative SARS-CoV-2 IgM Ab (Rapid) Negative 02/23/20 02/23/20 02/24/20 14:05 23:00 20:40 WBC RBC Hgb Hct MCV MCH MCHC RDW Plt Count MPV Neut % (Auto) Lymph % (Auto) [place] % (Auto) Eos % (Auto) Baso % (Auto) Neut # (Auto) Lymph
[2020-02-28 09:21] LABS: Chloride 109 mmol/L (98-107); Potassium 3.9 mmoL/L (3.5-5.1); Sodium 142 mmol/L (136-145)
[2020-02-28 09:24] LABS: Blood Urea Nitrogen 9 mg/dl (9-20); Carbon Dioxide 30 mmol/L (22.0-30.0); Creatinine Clearance Estimated 82 mL/min (50-200); Estimated Glomerular Filt Rate 62 ml/min (>60); GFR (African American) 74 ML/MIN (>60)
[2020-02-28 09:25] LABS: Calcium 8.7 mg/dl (8.4-10.2); Glucose 127 mg/dl (74-100)
--- NOTE | 2020-02-28 10:36 | HMH.PNCARD ---
Subjective Date: 02/28/20 Time: 10:20 Principal diagnosis: ARF, hyperkalemia, hypernatremia Interval history: This is a 59-year-old white gentleman who is in bed with no distress. He is sleeping soundly but does awaken easily. He denies any chest pain or pressure this morning. He states he is still short of breath but this is baseline for him. He denies any edema. He denies any fever, chills, nausea, vomiting, diarrhea, PND or orthopnea. His creatinine has improved significantly and is back to baseline. His hyperkalemia and hypernatremia have also improved. Blood pressure stable this morning and doing well. Exam Vital signs and Labs for Last 24 Hours: Temp Pulse Resp BP Pulse Ox 97.7 F 87 18 120/65 98 02/28/20 08:00 02/28/20 08:00 02/28/20 08:00 02/28/20 08:00 02/28/20 08:00 Laboratory Results - last 24 hr 02/28/20 08:50: WBC 11.6 H, RBC 2.90 L, Hgb 9.8 L, Hct 31.2 L, MCV 107.5 H, MCH 33.6 H, MCHC 31.2 L, RDW 14.6, Plt Count 192, MPV 8.5, Neut % (Auto) 84.2 H, Lymph % (Auto) 9.5 L, [place] % (Auto) 3.3, Eos % (Auto) 2.6, Baso % (Auto) 0.4, Neut # (Auto) 9.8 H, Lymph # (Auto) 1.1, [place] # (Auto) 0.4, Eos # (Auto) 0.3, Baso # (Auto) 0.1 02/28/20 08:50: Sodium 142, Potassium 3.9, Chloride 109 H, Carbon Dioxide 30, BUN 9 D, Creatinine 1.20, Estimated Creat Clear 82, Estimated GFR 62, Est GFR ( Amer) 74, Glucose 127 H, Calcium 8.7 I & O for Last 24 hours: Intake & Output 02/25/20 02/26/20 02/27/20 02/28/20 23:59 23:59 23:59 23:59 Intake Total 2471 / 2471 2589 / 2589 2952 / 2952 840 / 840 Output Total 1000 / 1500 1100 / 1100 2450 / 2450 600 / 600 Balance 1471 / 971 1489 / 1489 502 / 502 240 / 240 Weight 189 lb 9.561 oz 196 lb 3.382 oz 196 lb 3.382 oz 197 lb 12.074 oz Microbiology Reports for the Last 24 Hours: Microbiology 02/23/20 11:40 Blood Blood Culture - Preliminary Aerococcus viridans - Constitutional no acute distress, obese - *Routine HEENT Exam Head: Present: normocephalic, atraumatic Eye: Present: EOMI, PERRL ENT: Present: mucous membranes moist - *Routine Neck Exam Present: supple, full ROM, normal carotid upstroke. Absent: JVD, carotid bruit, lymphadenopathy - *Routine Respiratory Exam Present: CTA bilaterally - *Routine Cardiovascular Exam Present: RRR, Normal S1, Normal S2. Absent: murmur - *Routine Abdominal Exam Present: soft, normoactive bowel sounds. Absent: tenderness, distended - *Routine Extremities Exam Present: full ROM, pulses intact, normal capillary refill. Absent: cyanosis, clubbing, edema - *Routine Skin Exam Present: intact, warm. Absent: erythema, rash - *Routine Neurological Exam Present: alert, oriented X3, CN II-XII intact. Absent: sensory deficit, motor deficit Progress Note: A&P (1) Acute renal failure Status: Resolved (2) Chronic heart failure with preserved ejection fraction (HFpEF) Status: Acute (3) Hyperkalemia Status: Resolved (4) Hypernatremia Status: Resolved (5) HHD (hypertensive heart disease) Status: Chronic (6) HLD (hyperlipidemia) Status: Chronic (7) Schizoaffective disorder Status: Chronic (8) Anemia Status: Acute Assessment and Plan for All Diagnoses:: Plan: 1. The patient was admitted to the hospital and found to be in acute renal failure as well as having hyperkalemia and hypernatremia. His diuretics and losartan were discontinued. They have continued to be held at this time. His blood pressure has still been on the lower side and not above 120 systolic consistently. We will continue to hold his diuretics and losartan at discharge. Will try to restart these on an outpatient basis if his blood pressure will tolerate this and as long as his renal function stays stable. 2. His renal function has come back to baseline. His creatinine is down to 1.2 and stable. His hyper kalemia and hypernatremia have resolved. 3. His blood pressure is stable a
--- NOTE | 2020-02-28 18:42 | PC.NURSE ---
THIS RN REMOVED GIRON, PATIENT TOLERATED WELL. THIS RN PROVIDED D/C INFORMATION TO [facility] AT [facility]. NO NEW CONCERNS AT D/C.
== END 2020-02-28 17:34 | DRG 292 ==
LOC: ER 15:48 → 2ND 16:59
PROVIDERS: Family Medicine; Nurse Practitioner Family; Admitting Provider Emergency Medicine; Emergency Provider Emergency Medicine; PCP Emergency Medicine; Visit Provider Emergency Medicine
DX: I11.0 Hypertensive heart disease with heart failure (principal); E87.0 Hyperosmolality and hypernatremia; N17.9 Acute kidney failure, unspecified; E66.2 Morbid (severe) obesity with alveolar hypoventilation; I50.33 Acute on chronic diastolic (congestive) heart failure; I25.10 Atherosclerotic heart disease of native coronary artery without angina pectoris; Z95.5 Presence of coronary angioplasty implant and graft; J44.9 Chronic obstructive pulmonary disease, unspecified; Z99.81 Dependence on supplemental oxygen; E11.9 Type 2 diabetes mellitus without complications; Z79.84 Long term (current) use of oral hypoglycemic drugs; F03.90 Unspecified dementia, unspecified severity, without behavioral disturbance, psychotic disturbance, mood disturbance, and anxiety; D64.9 Anemia, unspecified; F25.9 Schizoaffective disorder, unspecified; E87.5 Hyperkalemia; Z87.891 Personal history of nicotine dependence; Z79.82 Long term (current) use of aspirin; Z88.8 Allergy status to other drugs, medicaments and biological substances; Z68.35 Body mass index [BMI] 35.0-35.9, adult
CPT/HCPCS: 36415; 70450; 71045; 71250; 74176; 80048; 80053; 81001; 82803; 83605; 84145; 85007; 85025; 86328; 87040; 87077; 87186; 93005; 93306; 94761; 96365; 96366; 96367; 96375; 99285; J0456; J0692; J1956; U0003

== ENCOUNTER 2020-04-07 02:51 | Inpatient (IN) | payer MEDICARE, MEDICAID, SELFPAY ==
[2020-04-07] VITALS (15 sets, daily range): BP systolic 102–137; BP diastolic 60–95; PULSE 85–110; RESP 16–22; TEMP 36.6–37.1; O2SAT 94–100; BMI 33.3; BMI 37.7; BMI 38.1
--- NOTE | 2020-04-07 02:52 | ECG_ITS ---
APPROVED REPORT Exam: Resting ECG HR:86 bpm ECG Measurements Heart Rate 86 AXES MO 152 P 93 QRSd 90 QRS 68 QT 348 T 41 QTc 416 Conclusion Normal sinus rhythm Normal ECG Electronically signed by : Fritz Acosta, 04/07/2020 14:54:37
--- NOTE | 2020-04-07 03:14 | CT_ITS ---
PROCEDURE: CT ABDOMEN PELVIS W CON CLINICAL INDICATION: LLQ pain COMPARISON: CT CT ABDOMEN PELVIS WO CON from 02/23/2020 TECHNIQUE: IV Contrast: 75ML Isovue 370 Oral Contrast None Axial images obtained with sagittal and coronal reformats. All CT scans at the facility use one or more dose reduction, viz: automated exposure control, ma/kV adjustment per patient size (including targeted exams where dose is matched to indication, i.e. head), or iterative reconstruction technique. Patient was unable to position optimally therefore significant bony artifact is noted. FINDINGS: LOWER THORAX: Presence of a coronary stent is visible. There are no acute cardiopulmonary CT findings. ABDOMEN & PELVIS: There is no intraperitoneal free air or free fluid. There are scattered surgical alan in the pelvis and within a prominent pannus. There is a 1.2 centimeter right renal cortical lesion with intermediate Hounsfield units. Renal ultrasound recommended for further evaluation. The solid abdominal organs have a normal appearance. There is a redundant sigmoid colon. The GI tract contains no intraluminal contrast which limits assessment, however there are no dilated loops of bowel to indicate small bowel obstruction. There is a redundant nondilated sigmoid colon. A right lower quadrant appendix is not identified as a separate structure however there are no secondary signs to suggest acute appendicitis. There is no abdominal or pelvic adenopathy. There are scattered atherosclerotic calcifications. There are focally prominent atherosclerotic calcifications at the origin of the celiac axis with suspected severe stenosis. There are scattered degenerative changes in the skeleton. 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 Indeterminate 1.2 centimeter right renal lesion. Renal ultrasound recommended. Otherwise unremarkable. Dictated by: Felicia Hay MD 04/07/2020 17:15 Felicia Hay MD in [facility] 04/07/2020 17:15
[2020-04-07 03:27] LABS: Chloride 92 mmol/L (98-107); Sodium 129 mmol/L (136-145)
[2020-04-07 03:28] LABS: Potassium 3.7 mmoL/L (3.5-5.1)
[2020-04-07 03:30] LABS: Alanine Aminotransferase 27 U/L (12-78); Alkaline Phosphatase 108 U/L (38-126); Amylase 72 U/L (30-110); Anion Gap 12.7 mEq/L (5-15); Aspartate Amino Transferase 25 U/L (17-59); Bilirubin,Total 0.4 mg/dl (0.2-1.3); Blood Urea Nitrogen 15 mg/dl (9-20); Calcium 9.3 mg/dl (8.4-10.2); Carbon Dioxide 28 mmol/L (22.0-30.0); Creatinine Clearance Estimated 71 mL/min (50-200); Estimated Glomerular Filt Rate 52 ml/min (>60); GFR (African American) 62 ML/MIN (>60); Glucose 187 mg/dl (74-100); Lipase 229 U/L (23-300)
[2020-04-07 03:31] LABS: Albumin Level 4.2 g/dl (3.5-5.0); Globulin 4.4 g/dL (1.3-3.2); Total Protein,Serum 8.6 g/dl (6.3-8.2)
[2020-04-07 03:36] LABS: Basophils # 0.2 K/mm3 (0-0.2); Basophils % 0.8 % (0.1-2.0); C-Reactive Protein 30.4 mg/L (0-4); Eosinophils # 0.4 K/mm3 (0.0-0.4); Eosinophils % 1.7 % (0.1-12.0); Hematocrit 32.7 % (42.0-52.0); Hemoglobin 10.2 g/dL (14.1-18.0); Lymphocytes # 2.2 K/mm3 (0.7-4.5); Lymphocytes % 10.8 % (10-50); Mean Corpuscular HGB Conc 31.2 g/dL (31.8-35.4); Mean Corpuscular Volume 102.4 fl (80-94); Mean Platelet Volume 7.3 fl (7.4-10.4); Monocytes % 4.7 % (1.7-9.3); Neutrophils # 16.7 K/mm3 (1.8-7.8); Platelet Count 423 K/mm3 (142-424); Red Blood Count 3.19 M/mm3 (4.60-6.20); Red Cell Distribution Width 15.4 % (11.5-17.5); White Blood Count 20.4 K/mm3 (4.8-10.8)
[2020-04-07 03:38] LABS: MANUAL DIFFERENTIAL MANUAL DIFFERENTIAL (MANUAL DIFF)
--- NOTE | 2020-04-07 03:42 | XR_ITS ---
PROCEDURE: XR CHEST AP CLINICAL HISTORY: chest pain Chest pain and congestion COMPARISON: CT CT CHEST WO CON from 02/25/2020 CR XR CHEST PORTABLE from 02/26/2020 CR XR CHEST PORTABLE from 02/27/2020 CR XR CHEST PORTABLE from 02/28/2020 FINDINGS: There are low lung volumes. There is increased prominence of the pulmonary vasculature. Cardiac and mediastinal silhouette remains enlarged but unchanged. This is consistent with prior CT finding of mediastinal lipomatosis. IMPRESSION: Pulmonary vascular congestion and low lung volumes. Dictated by: Felicia Hay MD 04/07/2020 10:49 Felicia Hya MD in [facility] 04/07/2020 10:49
[2020-04-07 03:44] LABS: Microscopic, Urine URINE MICROSCOPIC (MICROSCOPIC)
[2020-04-07 03:50] LABS: Troponin I < 0.01 ng/ml (0.00-0.034)
[2020-04-07 03:51] LABS: Procalcitonin 0.162 ng/mL (0.0-2.0)
[2020-04-07 03:53] LABS: Appearance,Urine CLEAR (Clear); Bilirubin,Urine Negative (Negative); Blood, Urine Negative (Negative); Color,Urine YELLOW (Yellow); Glucose,Urine (UA) TRACE (Negative); Ketones,Urine Negative (Negative); Leukocyte Esterase,Urine Negative (Negative); Nitrate,Urine Negative (Negative); Protein,Urine Negative (Negative); Specific Gravity, Urine 1.025 (1.005-1.030); Urobilinogen,Urine 0.2 EU/dl (0.2)
[2020-04-07 04:10] LABS: Erythrocyte Sedimentation Rate > 140 mm/hr (0-20)
[2020-04-07 04:25] LABS: Eosinophils % 1 % (0-3); Lymphocytes % 9 % (10-50); Monocytes % 8 % (2-9); Neutrophils % 79 % (42-76); Platelet Estimate Normal; Total Cells Counted 100
[2020-04-07 04:26] LABS: Macrocytosis 1+
[2020-04-07 04:33] LABS: Lactic Acid 2.6 mmol/L (0.7-2.1)
--- NOTE | 2020-04-07 04:39 | HMH.EDNVD ---
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 transplanted heart: [place] heart Qualified Code(s): I25.10 - Atherosclerotic heart disease of [place] coronary artery without angina pectoris Hypothyroidism, unspecified Qualifiers: Hypothyroidism type: acquired Qualified Code(s): E03.9 - Hypothyroidism, unspecified Schizoaffective disorder Qualifiers: Schizoaffective disorder type: unspecified Qualified Code(s): F25.9 - Schizoaffective disorder, unspecified Disposition: Admitted As Inpatient Condition on Discharge: Fair - Critical Care Critical Care Time: No Attestation: On 04/07/20, the high probability of a clinically significant, sudden or life threatening deterioration of the following system(s) required my full and direct attention, intervention and personal management. The time I documented below is in addition to time spent performing reported procedures but includes the following listed in this critical care notation. Medical Decision Making - Medical Records Medical records reviewed: Yes: I reviewed the patient's medical records. - Gaudencio Inquiry Pt receiving controlled substance: No Vital Signs: 04/07/20 02:52 04/07/20 02:56 04/07/20 03:22 Temperature 97.8 F Temperature Source Oral Pulse Rate [Right] 85 86 89 Respiratory Rate 16 16 Blood Pressure [Right Arm] 102/64 L 112/60 124/69 Blood Pressure Mean [Right Arm] 76 77 87 Blood Pressure Source [Right Arm] Automatic Cuff Blood Pressure Position [Right Arm] Sitting 02 Sat by Pulse Oximetry 97 100 96 Oxygen Delivery Method Nasal Cannula Oxygen Flow Rate (LPM) 2 04/07/20 03:52 04/07/20 04:22 04/07/20 04:30 Temperature Temperature Source Pulse Rate [Right] 90 90 92 H Respiratory Rate Blood Pressure [Right Arm] 111/62 109/70 L 109/70 L Blood Pressure Mean [Right Arm] 78 83 83 Blood Pressure Source [Right Arm] Blood Pressure Position [Right Arm] 02 Sat by Pulse Oximetry 96 97 97 Oxygen Delivery Method Nasal Cannula Oxygen Flow Rate (LPM) 2 04/07/20 05:00 04/07/20 05:30 04/07/20 06:00 Temperature Temperature Source Pulse Rate [Right] 93 H 91 H 90 Respiratory Rate Blood Pressure [Right Arm] 119/82 132/95 H 112/70 Blood Pressure Mean [Right Arm] 94 107 84 Blood Pressure Source [Right Arm] Blood Pressure Position [Right Arm] 02 Sat by Pulse Oximetry 94 L 97 97 Oxygen Delivery Method Nasal Cannula Nasal Cannula Nasal Cannula Oxygen Flow Rate (LPM) 2 2 04/07/20 06:30 Temperature Temperature Source Pulse Rate [Right] Respiratory Rate Blood Pressure [Right Arm] 128/74 Blood Pressure Mean [Right Arm] 92 Blood Pressure Source [Right Arm] Blood Pressure Position [Right Arm] 02 Sat by Pulse Oximetry Oxygen Delivery Method Oxygen Flow Rate (LPM) - Lab Data Lab results reviewed: Yes: I reviewed the patient's lab results. Lab Results 04/07/20 03:09: WBC 20.4 H*, RBC 3.19 L, Hgb 10.2 L, Hct 32.7 L, MCV 102.4 H, MCH 32.0 H, MCHC 31.2 L, RDW 15.4, Plt Count 423, MPV 7.3 L, Neut % (Auto) 82.0 H, Lymph % (Auto) 10.8, [place] % (Auto) 4.7, Eos % (Auto) 1.7, Baso % (Auto) 0.8, Neut # (Auto) 16.7 H, Lymph # (Auto) 2.2, [place] # (Auto) 1.0, Eos # (Auto) 0.4, Baso # (Auto) 0.2, Total Counted 100, Neutrophils % (Manual) 79 H, Lymphocytes % (Manual) 9 L, Monocytes % (Manual) 8, Eosinophils % (Manual) 1, Metamyelocytes % 2.0 H, Blast Cells % 1.0, Platelet Estimate Normal, RBC Morphology Not Reportable, Macrocytosis 1+, ESR > 140 H 04/07/20 03:09: Sodium 129 L, Potassium 3.7, Chloride 92 L, Carbon Dioxide 28, Anion Gap 12.7, BUN 15, Creatinine 1.40 H, Estimated Creat Clear 71, Estimated GFR 52 L, Est GFR ( Amer) 62, Glucose 187 H, Calcium 9.3, Total Bilirubin 0.4, AST 25, ALT 27, Alkaline Phosphatase 108, Troponin
[2020-04-07 04:40] LABS: Bacteria,Urine 1+ /lpf
[2020-04-07 06:09] LABS: ABG Base Excess -3.8 mmol/L (-2.4-2.3); ABG HCO3 21.6 mmhg (22.0-26.0); ABG Oxygen Saturation 98 % (90-100); ABG PH 7.36 mmol/L (7.35-7.45); ABG PO2 118.8 mmhg (80-100); ABG TCO2 22.8 mmhg (23-27)
[2020-04-07 06:10] LABS: Allen's Test Acceptable; Source Right Radial
--- NOTE | 2020-04-07 07:26 | HMH.PHAVTE ---
[facility] Pharmacy VTE Monitoring - Patient Demographics Admission date: 04/07/20 Report Date: 04/07/20 Time: 07:26 Allergies/Adverse Reactions: Patient Allergies morphine [MORPHINE] Allergy (Mild, Verified 03/04/20 15:19) HURTS STOMACH nitroglycerin Allergy (Mild, Verified 03/04/20 15:19) Nausea Height: 1.65 m Weight: 90.718 kg Patient Problems: Current Active Problems Severe sepsis with acute organ dysfunction (Acute) Obesity (BMI 30-39.9) (Chronic) Diabetes 1.5, managed as type 2 (Chronic) Schizoaffective disorder (Chronic) Hypothyroidism, unspecified (Chronic) Atherosclerotic heart disease of [place] coronary artery without angina pectoris (Chronic) - VTE Risk Labs: VTE Related Lab Results Hgb 10.2 g/dL (14.1-18.0) L 04/07/20 03:09 Hct 32.7 % (42.0-52.0) L 04/07/20 03:09 Plt Count 423 K/mm3 (142-424) 04/07/20 03:09 BUN 15 mg/dl (9-20) 04/07/20 03:09 Creatinine 1.40 mg/dl (0.66-1.25) H 04/07/20 03:09 Estimated Creat Clear 71 mL/min (50-200) 04/07/20 03:09 - Prophylaxis VTE Prophylaxis Ordered?: Yes Types of VTE Prophylaxis: TEDS Knee High Location of Applied Device: Bilateral Lower Extremeties
--- NOTE | 2020-04-07 07:29 | PC.NURSE ---
patient arrived to the floor
[2020-04-07 07:33] LABS: Troponin I < 0.01 ng/ml (0.00-0.034)
[2020-04-07 08:20] LABS: Reflex Lactic Add Lactic Reflex
--- NOTE | 2020-04-07 08:51 | SW/DCPLANNER ---
Addendum entered by Stacy [place] 04/10/20 10:29: Alena with [facility] has stated this patient does NOT need another COVID swab at this time: last COVID was negative on 04/07. Addendum entered by Stacy [place] 04/10/20 09:55: I have informed Alena with [facility] that there is a discharge order for this patient today. Addendum entered by Stacy [place] 04/10/20 09:37: I have updated Alena at [facility] regarding this patient: Cardiology will see this patient today then he could possibly discharge later this afternoon. Original Note: This patient currently resides at [facility]. I have spoke with Alena at [facility] and she has stated that patient is [facility] level of care. I will continue to follow up with Alena until patient is medically stable for discharge.
--- NOTE | 2020-04-07 08:52 | HMH.HP ---
*Admission Date: 04/07/20 *Chief complaint: ams *History of present illness: 59 yr old male presented to ed with c/o intermediate reports pt was unresponsive with crowe lips. Per ed note pt arrived A&O with O2 Sats 97%. Pt is sitting up c/o LLQ abd pain and CP earlier tonight. Labs show elevated wbc, elevated lact acid, and chest xray Pulmonary vascular congestion and low lung volumes.. pt admitted for further work up on ams and unresponsive. [facility] History I have reviewed the patient's past medical history: Yes Medical History: Reports:: Anxiety, Asthma, Atherosclerotic Heart Disease, Congestive Heart Failure, Congenital Heart Disease, Coronary Artery Disease, Depression, Diabetes Mellitus Type 2, Gastroesophageal Reflux Disease(GERD), Home Oxygen, Hyperlipidemia, Hypertension, Lung Disease, Osteoporosis Denies:: Cancer, Diabetes Mellitus Type 1, Internal Pacemaker, Seizures *Have you ever received a pneumonia vaccine?: Yes *Have you received a flu vaccine this season?: Yes Other Medical History: Reports: Anemia, Hypothyroidism, Osteoporosis, Thyroid Disease, Other Laterality Cases: Bilateral: Carpal Tunnel Release Other Surgeries: Yes: No Previous Surgery, Colonoscopy, Coronary Stent, EGD, Hernia Repair, Other. No: Pacemaker Amputation: No Fractures: No - *Social History Smoking Status: Former smoker Tobacco Type: cigarettes Alcohol Intake: never Alcohol Intake Frequency:: 3 or more drinks per day Substance Use Type: marijuana *Occupational Status:: disabled Housing: long-term Household Members: other *Travel in the last 8 weeks: None - Psychiatric History Pschychiatric History:: Reports:: Anxiety, Depression Family Hx:: Unable to obtain Review of Systems - Review of Systems Review of systems:: pertinent systems reviewed and negative unless documented below - Constitutional Denies excessive sweating - Eyes Denies blurry vision - ENT Reports difficulty swallowing, Denies change in voice - *Cardiovascular Reports chest pain, Denies shortness of breath - *Respiratory Denies chest congestion - *Gastrointestinal Denies heartburn - *Genitourinary Denies painful urination - *Musculoskeletal Denies back pain - Integumentary/Breasts Reports wounds, Denies nail changes, Denies rash - *Neurologic Denies localized weakness, Denies headache(s) - Psychiatric Denies anxiety - Endocrine Denies flushing - Hematologic/Lymphatic Denies enlarged lymph nodes Meds Home Medications Medication Instructions Recorded Confirmed Type atorvastatin 40 mg tablet 40 mg PO HS 03/24/17 04/07/20 History docusate sodium 250 mg capsule 250 mg PO DAILYP PRN 03/24/17 04/07/20 History furosemide 80 mg tablet 80 mg PO BID tab 03/24/17 04/07/20 History loratadine 10 mg tablet 10 mg PO DAILY 03/24/17 04/07/20 History isosorbide mononitrate 30 mg 30 mg PO DAILY 04/11/17 04/07/20 History tablet,extended release 24 hr folic acid 0.8 mg capsule 0.8 mg PO DAILY 09/30/17 04/07/20 History magnesium oxide 400 mg PO HS cap 09/30/17 04/07/20 History spironolactone 50 mg tablet 50 mg PO BID tab 09/30/17 04/07/20 History Acetaminophen 500 mg PO Q4HP PRN 11/10/17 04/07/20 History Omeprazole [Omeprazole 20mg 20 mg PO Q48H 11/10/17 04/07/20 History Capsule] Cyanocobalamin (Vitamin B-12) 750 mcg PO DAILY 11/11/17 04/07/20 History [Vitamin B-12] Levothyroxine Sodium 50 mcg PO DAILY 11/11/17 04/07/20 History [Levothyroxine 50mcg (0.05mg) Tab] Potassium Chloride [Klor-con 20 40 meq PO BID 11/11/17 04/07/20 History mEq tablet] Tamsulosin HCl [Flomax 0.4mg 0.4 mg PO DAILY 11/11/17 04/07/20 History capsule] losartan 25 mg tablet 12.5 mg PO DAILY tab 09/29/18 04/07/20 History Bisacodyl [Bisacodyl 10mg Supp] 10 mg RC DAILYP PRN 11/17/18 04/07/20 History Lactulose [Lactulose 10gm/15ml 20 gm PO DAILYP PRN 11/17/18 04/07/20 History Oral Soln] Mag Carb/Aluminum Hydrox/Algin 30 ml PO Q4HP PRN 11/17/18
--- NOTE | 2020-04-07 09:09 | HMH.PHAINT ---
MEDICATION RECONCILIATION COMPLETED ON PATIENT USING [facility] FROM [facility]. -MAINOR EDWARDS, MARCO AD
--- NOTE | 2020-04-07 09:14 | DIET.NUTRFU ---
This am on rounds pt with non-thickened milk, this RD thickened milk for pt and he became very upset. Pt voiced acknowledgement of his therapeutic diet at [facility] (soft mechanical with nectar thickened liquids) and stated but they dont mess with my milk and [facility]. Nahum Arellano APRN confirmed pt's statement is accurate and that he signed a waiver to be allowed thin liquids by request. Diet education provided to pt on aspiration risk, he voiced understanding. This RD observed pt drinking without s/s aspiration. Pt may have non-thickened milk and soda.
[2020-04-07 09:57] LABS: Troponin I < 0.01 ng/ml (0.00-0.034)
[2020-04-07 10:34] LABS: Lactic Acid Follow Up (RFLX 1) 2.8 mmol/L (0.7-2.1)
[2020-04-07 11:27] LABS: Reflex Lactic (2 hrs) Add Lactic Reflex
[2020-04-07 11:30] LABS: POC Glucose,Bedside 183 (70-110)
[2020-04-07 12:37] LABS: Lactic Acid Follow up (RFLX 2) 2.4 mmol/L (0.7-2.1)
[2020-04-07 15:53] LABS: POC Glucose,Bedside 139 (70-110)
--- NOTE | 2020-04-07 16:40 | PC.NURSE ---
Pt has been pleasant and cooperative this shift. A&O X4. No complaints of pain. Pt is currently on room air with sats. >90%. Pt has O2 via NC @ 2 LPM at bedside if needed. Lung sounds reveal inspiratory/expiratory wheezing. 1+ pitting edema noted to BLE. Skin is C/D/I. F/C is patent and draining clear, yellow urine at bedside to gravity. No BM thus far this shift. FSBS results have been 183 and 139. Telemetry reveals NSR. 20 G peripheral IV in the RT upper arm is patent and infusing NS @ 50 ML/HR. VSS. Call light within reach. Will continue to monitor.
[2020-04-07 22:49] LABS: POC Glucose,Bedside 124 (70-110)
[2020-04-08] VITALS (10 sets, daily range): BP systolic 92–122; BP diastolic 46–72; PULSE 61–110; RESP 16–18; TEMP 36.4–36.9; O2SAT 95–98; BMI 36.8
--- NOTE | 2020-04-08 06:11 | PC.NURSE ---
Pt is oriented to name and only. Pt has been a q2h turn this hisft. Pt has tolerated RA appropriately with 02 sats above 95. No other acute changes or complaints.
[2020-04-08 06:51] LABS: Basophils # 0.1 K/mm3 (0-0.2); Basophils % 0.7 % (0.1-2.0); Eosinophils # 0.3 K/mm3 (0.0-0.4); Eosinophils % 2.3 % (0.1-12.0); Hematocrit 30.3 % (42.0-52.0); Hemoglobin 9.3 g/dL (14.1-18.0); Lymphocytes # 2.1 K/mm3 (0.7-4.5); Lymphocytes % 13.8 % (10-50); Mean Corpuscular HGB Conc 30.8 g/dL (31.8-35.4); Mean Corpuscular Hemoglobin 31.8 pg (27.0-31.2); Mean Corpuscular Volume 103.4 fl (80-94); Mean Platelet Volume 7.6 fl (7.4-10.4); Monocytes # 0.7 K/mm3 (0.1-1.0); Monocytes % 4.9 % (1.7-9.3); Neutrophils # 11.7 K/mm3 (1.8-7.8); Neutrophils % 78.4 % (37.0-80.0); Platelet Count 359 K/mm3 (142-424); Red Blood Count 2.93 M/mm3 (4.60-6.20); Red Cell Distribution Width 15.4 % (11.5-17.5); White Blood Count 14.9 K/mm3 (4.8-10.8)
[2020-04-08 06:57] LABS: Chloride 103 mmol/L (98-107); Sodium 137 mmol/L (136-145)
[2020-04-08 06:58] LABS: Potassium 4.3 mmoL/L (3.5-5.1)
[2020-04-08 07:00] LABS: Blood Urea Nitrogen 12 mg/dl (9-20); Creatinine Clearance Estimated 91 mL/min (50-200); Estimated Glomerular Filt Rate 68 ml/min (>60); GFR (African American) 82 ML/MIN (>60)
[2020-04-08 07:01] LABS: Anion Gap 8.3 mEq/L (5-15); Calcium 8.8 mg/dl (8.4-10.2); Carbon Dioxide 30 mmol/L (22.0-30.0); Glucose 141 mg/dl (74-100)
--- NOTE | 2020-04-08 07:18 | PC.NURSE ---
[facility] called stating pt had an appointment scheduled for Friday w/ Kelle's office and Friday w/ Alyssa's office. Will pass this on to dayshift to pass on to case management
[2020-04-08 07:25] LABS: POC Glucose,Bedside 138 (70-110)
--- NOTE | 2020-04-08 09:35 | HMH.ACPN2 ---
Internal Medicine - PN: Subj *Date: 04/09/20 *Time: 07:08 Interval history: more alert today - has positive blood culture- reviewed labs and vital signs Exam Vital signs and Labs for Last 24 Hours: Temp Pulse Resp BP Pulse Ox 98.3 F 104 H 16 98/57 L 97 04/08/20 08:00 04/08/20 08:00 04/08/20 08:00 04/08/20 08:00 04/08/20 08:00 Laboratory Results - last 24 hr 04/07/20 09:08: Troponin I < 0.01 04/07/20 09:08: Lactate 2.8 H 04/07/20 11:23: POC Glucose 183 H 04/07/20 12:00: Lactate 2.4 H 04/07/20 15:38: POC Glucose 139 H 04/07/20 22:41: POC Glucose 124 H 04/08/20 06:27: WBC 14.9 H D, RBC 2.93 L, Hgb 9.3 L, Hct 30.3 L, MCV 103.4 H, MCH 31.8 H, MCHC 30.8 L, RDW 15.4, Plt Count 359, MPV 7.6, Neut % (Auto) 78.4, Lymph % (Auto) 13.8, [place] % (Auto) 4.9, Eos % (Auto) 2.3, Baso % (Auto) 0.7, Neut # (Auto) 11.7 H, Lymph # (Auto) 2.1, [place] # (Auto) 0.7, Eos # (Auto) 0.3, Baso # (Auto) 0.1 04/08/20 06:27: Sodium 137, Potassium 4.3, Chloride 103, Carbon Dioxide 30, Anion Gap 8.3, BUN 12, Creatinine 1.10 D, Estimated Creat Clear 91, Estimated GFR 68, Est GFR ( Amer) 82 D, Glucose 141 H, Calcium 8.8 04/08/20 06:32: POC Glucose 138 H I & O for Last 24 hours: Intake & Output 04/05/20 04/06/20 04/07/20 04/08/20 11:59 11:59 11:59 11:59 Intake Total 2150 / 2150 1853 / 1853 Output Total 4325 / 4325 Balance 2150 / 2150 -2472 / -2472 Weight 206 lb 6 oz 200 lb 5 oz Microbiology Reports for the Last 24 Hours: Microbiology 04/07/20 04:11 Blood Blood Culture - Preliminary 04/07/20 03:30 Urine,Catheterized Urine Culture - Preliminary NO GROWTH AFTER 24 HOURS 04/07/20 03:30 Nasopharyngeal Coronavirus COVID-19 PCR - Final - Constitutional obese - *Routine HEENT Exam Head: Present: normocephalic Eye: Present: EOMI, PERRL ENT: Present: mucous membranes dry - *Routine Neck Exam Absent: JVD - *Routine Respiratory Exam Present: decreased breath sounds - *Routine Cardiovascular Exam Present: RRR - *Routine Abdominal Exam Present: soft - *Routine Extremities Exam Absent: calf tenderness - *Routine Skin Exam Absent: rash - *Routine Neurological Exam Present: altered mental status - Routine Psychiatric Exam Present: unable to assess Assessment and Plan (1) Diabetes 1.5, managed as type 2 Status: Chronic Category: Medical Code(s): E13.9 - Other specified diabetes mellitus without complications (2) Obesity (BMI 30-39.9) Status: Chronic Category: Medical Code(s): E66.9 - Obesity, unspecified (3) Schizoaffective disorder Status: Chronic Qualifiers: Schizoaffective disorder type: unspecified Qualified Code(s): F25.9 - Schizoaffective disorder, unspecified Category: Medical Code(s): F25.9 - Schizoaffective disorder, unspecified (4) CAD (coronary artery disease) Status: Chronic Qualifiers: Coronary Disease-Associated Artery/Lesion type: [place] artery [place] vs. transplanted heart: [place] heart Associated angina: without angina Qualified Code(s): I25.10 - Atherosclerotic heart disease of [place] coronary artery without angina pectoris Category: Medical Code(s): I25.10 - Atherosclerotic heart disease of [place] coronary artery without angina pectoris (5) Coronary arteriosclerosis in [place] artery Status: Chronic Category: Medical Code(s): I25.10 - Atherosclerotic heart disease of [place] coronary artery without angina pectoris (6) HHD (hypertensive heart disease) Status: Chronic Qualifiers: Heart failure presence: without heart failure Qualified Code(s): I11.9 - Hypertensive heart disease without heart failure Category: Medical Code(s): I11.9 - Hypertensive heart disease without heart failure (7) HLD (hyperlipidemia) Status: Chronic Qualifiers: Hyperlipidemia type: mixed hyperlipidemia Qualified Code(s): E78.2 - Mixed hyperlipidemia Category: Medical Code(s):
--- NOTE | 2020-04-08 10:14 | HMH.PHACONS ---
- Pharmacy Consult Date: 04/08/20 Time: 10:14 Referring provider: DR. GALARZA Reason for Consult:: VANCOMYCIN DOSING Allergies and ADEs:: Allergies Allergy/AdvReac Type Severity Reaction Status Date / Time morphine [MORPHINE] Allergy Mild HURTS Verified 03/04/20 15:19 STOMACH nitroglycerin Allergy Mild Nausea Verified 03/04/20 15:19 Home Medications:: Home Medications Medication Instructions Recorded Confirmed Type atorvastatin 40 mg tablet 40 mg PO HS 03/24/17 04/07/20 History docusate sodium 250 mg capsule 250 mg PO DAILYP PRN 03/24/17 04/07/20 History furosemide 80 mg tablet 80 mg PO BID tab 03/24/17 04/07/20 History loratadine 10 mg tablet 10 mg PO DAILY 03/24/17 04/07/20 History isosorbide mononitrate 30 mg 30 mg PO DAILY 04/11/17 04/07/20 History tablet,extended release 24 hr folic acid 0.8 mg capsule 0.8 mg PO DAILY 09/30/17 04/07/20 History magnesium oxide 400 mg PO HS cap 09/30/17 04/07/20 History spironolactone 50 mg tablet 50 mg PO BID tab 09/30/17 04/07/20 History Acetaminophen 500 mg PO Q4HP PRN 11/10/17 04/07/20 History Omeprazole [Omeprazole 20mg 20 mg PO Q48H 11/10/17 04/07/20 History Capsule] Cyanocobalamin (Vitamin B-12) 750 mcg PO DAILY 11/11/17 04/07/20 History [Vitamin B-12] Levothyroxine Sodium 50 mcg PO DAILY 11/11/17 04/07/20 History [Levothyroxine 50mcg (0.05mg) Tab] Potassium Chloride [Klor-con 20 40 meq PO BID 11/11/17 04/07/20 History mEq tablet] Tamsulosin HCl [Flomax 0.4mg 0.4 mg PO DAILY 11/11/17 04/07/20 History capsule] losartan 25 mg tablet 12.5 mg PO DAILY tab 09/29/18 04/07/20 History Bisacodyl [Bisacodyl 10mg Supp] 10 mg RC DAILYP PRN 11/17/18 04/07/20 History Lactulose [Lactulose 10gm/15ml 20 gm PO DAILYP PRN 11/17/18 04/07/20 History Oral Soln] Mag Carb/Aluminum Hydrox/Algin 30 ml PO Q4HP PRN 11/17/18 04/07/20 History [Acid Gone Antacid Liquid] Multivitamin,Ther and Minerals 1 each PO DAILY 11/17/18 04/07/20 History [Vitamin and Minerals] ARIPiprazole [Aripiprazole 15mg 15 mg PO HS 11/18/18 04/07/20 History Tablet] Duloxetine HCl 120 mg PO DAILY 11/18/18 04/07/20 History Sennosides [Senna] 8.6 mg PO BID 01/24/19 04/07/20 History Aspirin [Aspirin 81mg chewable 81 mg PO DAILY 01/25/19 04/07/20 History tab] Loperamide HCl [Anti-Diarrheal] 2 mg PO Q4HP PRN 01/25/19 04/07/20 History tramadol 50 mg tablet 50 mg PO BID #60 tab 12/16/19 04/07/20 Rx Olopatadine HCl 1 drp OU BID 02/24/20 04/07/20 History Trazodone HCl 100 mg PO HS 02/24/20 04/07/20 History Albuterol Sulfate [Albuterol 2 puffs IH Q6HP PRN 04/07/20 04/07/20 History Sulfate Hfa] Insulin Regular, Human [Novolin R] 0 unit SQ ACHS 04/07/20 04/07/20 History Linagliptin [Tradjenta 5mg tablet] 5 mg PO DAILY 04/07/20 04/07/20 History clindamycin HCL [Clindamycin HCl] 300 mg PO BID 04/07/20 04/07/20 History Height: 1.57 m Weight: 90.86 kg Laboratory Results:: Laboratory Results - last 24 hr 04/07/20 09:08: Lactate 2.8 H 04/07/20 11:23: POC Glucose 183 H 04/07/20 12:00: Lactate 2.4 H 04/07/20 15:38: POC Glucose 139 H 04/07/20 22:41: POC Glucose 124 H 04/08/20 06:27: WBC 14.9 H D, RBC 2.93 L, Hgb 9.3 L, Hct 30.3 L, MCV 103.4 H, MCH 31.8 H, MCHC 30.8 L, RDW 15.4, Plt Count 359, MPV 7.6, Neut % (Auto) 78.4, Lymph % (Auto) 13.8, [place] % (Auto) 4.9, Eos % (Auto) 2.3, Baso % (Auto) 0.7, Neut # (Auto) 11.7 H, Lymph # (Auto) 2.1, [place] # (Auto) 0.7, Eos # (Auto) 0.3, Baso # (Auto) 0.1 04/08/20 06:27: Sodium 137, Potassium 4.3, Chloride 103, Carbon Dioxide 30, Anion Gap 8.3, BUN 12, Creatinine 1.10 D, Estimated Creat Clear 91, Estimated GFR 68, Est GFR ( Amer) 82 D, Glucose 141 H, Calcium 8.8 04/08/20 06:32: POC Glucose 138 H Medical History: Reports:: Anxiety, Asthma, Atherosclerotic Heart Disease, Congestive Heart Failure, Congenital Heart Disease, Coronary Artery Disease, Depression, Diabetes Mellitus Type 2, Gastroesophageal Reflux Disease(GERD), Home Oxygen,
[2020-04-08 10:59] LABS: POC Glucose,Bedside 125 (70-110)
[2020-04-08 16:02] LABS: POC Glucose,Bedside 112 (70-110)
--- NOTE | 2020-04-08 16:10 | PC.NURSE ---
Pt has been pleasant and cooperative this shift. A&O X4. No complaints of pain. Pt is currently on room air with sats. >90%. Pt has O2 via NC @ 2 LPM at bedside if needed. Lung sounds reveal inspiratory/expiratory wheezing. 1+ pitting edema noted to BLE. Skin is C/D/I. F/C is patent and draining clear, yellow urine at bedside to gravity. No BM thus far this shift. Pt has been turned/repositioned Q2H this shift. FSBS results have been 125 and 112. Telemetry reveals NSR. 20 G peripheral IV in the RT upper arm is patent and infusing NS @ 50 ML/HR. VSS. Call light within reach. Will continue to monitor.
[2020-04-08 22:47] LABS: POC Glucose,Bedside 130 (70-110)
[2020-04-09] VITALS: BP 121/68; PULSE 90; PULSE 91; RESP 17; TEMP 37.2; O2SAT 95
[2020-04-09 04:00] VITALS: BP 98/60; PULSE 100; PULSE 96; RESP 18; TEMP 37.3; O2SAT 94
--- NOTE | 2020-04-09 05:39 | PC.NURSE ---
Pt has been A&O this shift. Pt has been pleasant, but restless this shift. Pt has been a q2h turn and oral care this shift. Expiratory wheezing noted bilaterally t/o. Active bowel sounds in all 4 quads, no BM noted. Stephens cath is draining clear, bright yellow urine w/ a strong odor per gravity. No other acute changes or complaints at this time.
[2020-04-09 05:44] VITALS: BMI 37.5
[2020-04-09 06:42] LABS: POC Glucose,Bedside 132 (70-110)
[2020-04-09 08:00] VITALS: BP 95/88; PULSE 102; PULSE 110; RESP 16; TEMP 36.8; O2SAT 96
[2020-04-09 08:27] VITALS: PULSE 102; RESP 16; O2SAT 96
--- NOTE | 2020-04-09 08:48 | HMH.ACPN2 ---
Internal Medicine - PN: Subj *Date: 04/10/20 *Time: 06:21 Interval history: pt with more alert today- on abx - Exam Vital signs and Labs for Last 24 Hours: Temp Pulse Resp BP Pulse Ox 98.3 F 102 H 16 95/88 L 96 04/09/20 08:00 04/09/20 08:27 04/09/20 08:27 04/09/20 08:00 04/09/20 08:27 Laboratory Results - last 24 hr 04/08/20 10:46: POC Glucose 125 H 04/08/20 15:54: POC Glucose 112 H 04/08/20 21:18: POC Glucose 130 H 04/09/20 06:06: POC Glucose 132 H I & O for Last 24 hours: Intake & Output 04/06/20 04/07/20 04/08/20 04/09/20 11:59 11:59 11:59 11:59 Intake Total 2150 / 2150 1853 / 1853 2867 / 2867 Output Total 5525 / 5525 1950 / 1950 Balance 2150 / 2150 -3672 / -3672 917 / 917 Weight 206 lb 6 oz 200 lb 5 oz 204 lb 3 oz Microbiology Reports for the Last 24 Hours: Microbiology 04/07/20 04:11 Blood Blood Culture - Preliminary Gram Positive Cocci Gram Positive Cocci#2 04/07/20 03:30 Urine,Catheterized Urine Culture - Final NO GROWTH AFTER 48 HOURS 04/07/20 04:11 Blood Blood Culture - Preliminary NO GROWTH AFTER 48 HOURS - Constitutional obese - *Routine HEENT Exam Head: Present: normocephalic Eye: Present: EOMI, PERRL ENT: Present: mucous membranes dry - *Routine Neck Exam Absent: JVD - *Routine Respiratory Exam Present: decreased breath sounds - *Routine Cardiovascular Exam Present: RRR, murmur, S4 - *Routine Abdominal Exam Present: soft. Absent: tenderness - *Routine Extremities Exam Absent: calf tenderness - *Routine Skin Exam Present: intact - *Routine Neurological Exam Present: alert - Routine Psychiatric Exam Present: unable to assess Assessment and Plan (1) Diabetes 1.5, managed as type 2 Status: Chronic Category: Medical Code(s): E13.9 - Other specified diabetes mellitus without complications (2) Obesity (BMI 30-39.9) Status: Chronic Category: Medical Code(s): E66.9 - Obesity, unspecified (3) Schizoaffective disorder Status: Chronic Qualifiers: Schizoaffective disorder type: unspecified Qualified Code(s): F25.9 - Schizoaffective disorder, unspecified Category: Medical Code(s): F25.9 - Schizoaffective disorder, unspecified (4) CAD (coronary artery disease) Status: Chronic Qualifiers: Coronary Disease-Associated Artery/Lesion type: [place] artery [place] vs. transplanted heart: [place] heart Associated angina: without angina Qualified Code(s): I25.10 - Atherosclerotic heart disease of [place] coronary artery without angina pectoris Category: Medical Code(s): I25.10 - Atherosclerotic heart disease of [place] coronary artery without angina pectoris (5) Coronary arteriosclerosis in [place] artery Status: Chronic Category: Medical Code(s): I25.10 - Atherosclerotic heart disease of [place] coronary artery without angina pectoris (6) HHD (hypertensive heart disease) Status: Chronic Qualifiers: Heart failure presence: without heart failure Qualified Code(s): I11.9 - Hypertensive heart disease without heart failure Category: Medical Code(s): I11.9 - Hypertensive heart disease without heart failure (7) HLD (hyperlipidemia) Status: Chronic Qualifiers: Hyperlipidemia type: mixed hyperlipidemia Qualified Code(s): E78.2 - Mixed hyperlipidemia Category: Medical Code(s): E78.5 - Hyperlipidemia, unspecified (8) HTN (hypertension) Status: Chronic Qualifiers: Hypertension type: essential hypertension Qualified Code(s): I10 - Essential (primary) hypertension Category: Medical Code(s): I10 - Essential (primary) hypertension (9) Obesity Status: Chronic Qualifiers: Obesity type: due to excess calories Obesity classification: adult class 2 (BMI 35 - 39.9) Serious obesity comorbidity presence: unspecified whether serious comor
[2020-04-09 09:33] LABS: Basophils # 0.1 K/mm3 (0-0.2); Basophils % 0.6 % (0.1-2.0); Eosinophils # 0.3 K/mm3 (0.0-0.4); Eosinophils % 2.4 % (0.1-12.0); Hemoglobin 8.6 g/dL (14.1-18.0); Lymphocytes # 1.9 K/mm3 (0.7-4.5); Lymphocytes % 14.3 % (10-50); Mean Corpuscular HGB Conc 31.9 g/dL (31.8-35.4); Mean Corpuscular Hemoglobin 32.1 pg (27.0-31.2); Mean Corpuscular Volume 100.8 fl (80-94); Mean Platelet Volume 8.6 fl (7.4-10.4); Monocytes # 0.7 K/mm3 (0.1-1.0); Monocytes % 5.1 % (1.7-9.3); Neutrophils # 10.4 K/mm3 (1.8-7.8); Neutrophils % 77.6 % (37.0-80.0); Platelet Count 325 K/mm3 (142-424); Red Blood Count 2.68 M/mm3 (4.60-6.20); Red Cell Distribution Width 15.8 % (11.5-17.5); White Blood Count 13.4 K/mm3 (4.8-10.8)
[2020-04-09 10:09] LABS: Chloride 103 mmol/L (98-107); Potassium 4.3 mmoL/L (3.5-5.1); Sodium 133 mmol/L (136-145)
[2020-04-09 10:12] LABS: Anion Gap 7.3 mEq/L (5-15); Blood Urea Nitrogen 14 mg/dl (9-20); Calcium 8.7 mg/dl (8.4-10.2); Carbon Dioxide 27 mmol/L (22.0-30.0); Creatinine Clearance Estimated 78 mL/min (50-200); Estimated Glomerular Filt Rate 56 ml/min (>60); GFR (African American) 68 ML/MIN (>60); Glucose 144 mg/dl (74-100)
[2020-04-09 11:15] LABS: POC Glucose,Bedside 140 (70-110)
[2020-04-09 16:00] VITALS: BP 83/45; PULSE 102; RESP 20; TEMP 37.1; O2SAT 99
[2020-04-09 16:13] LABS: POC Glucose,Bedside 145 (70-110)
--- NOTE | 2020-04-09 16:23 | PC.NURSE ---
Pt has been pleasant and cooperative this shift. A&O X4. No complaints of pain. Pt is currently on room air with sats. >90%. Pt has O2 via NC @ 2 LPM at bedside if needed. Lung sounds reveal expiratory wheezing. No edema noted. Skin is C/D/I. F/C DC'd this shift. Pt uses the urinal to void clear, yellow urine without issue. Pt also uses the bedpan and had 1 large, soft, brown BM this shift. Pt has been turned/repositioned Q2H. FSBS results have been 140 and 145. Telemetry DC'd this shift. Pt got OOB with the mechanical lift today and sat up in the recliner for several hours. 20 G peripheral IV in the RT upper arm is patent and infusing NS @ 50 ML/HR. VSS. Call light within reach. Will continue to monitor.
[2020-04-09 20:00] VITALS: BP 122/57; PULSE 100; RESP 16; TEMP 37.3; O2SAT 98
[2020-04-09 20:40] LABS: POC Glucose,Bedside 132 (70-110)
[2020-04-10] VITALS: BP 110/56; PULSE 94; RESP 19; TEMP 36.9; O2SAT 91
--- NOTE | 2020-04-10 03:31 | PC.NURSE ---
Pt. able to state name, , and place; cannot state year. RA t/o shift with o2 sat low 90's. Intermittent nonproductive cough noted with inspiratory crackles to bilat lungs. C/o soa upon movement.
[2020-04-10 03:55] VITALS: BP 114/66; PULSE 91; RESP 18; TEMP 36.9; O2SAT 91
[2020-04-10 04:52] VITALS: BMI 37.0
[2020-04-10 05:17] LABS: POC Glucose,Bedside 158 (70-110)
[2020-04-10 07:08] LABS: Chloride 99 mmol/L (98-107); Sodium 136 mmol/L (136-145)
[2020-04-10 07:09] LABS: Basophils # 0.1 K/mm3 (0-0.2); Basophils % 0.5 % (0.1-2.0); Eosinophils # 0.4 K/mm3 (0.0-0.4); Eosinophils % 2.1 % (0.1-12.0); Hematocrit 31.2 % (42.0-52.0); Lymphocytes # 1.7 K/mm3 (0.7-4.5); Mean Corpuscular HGB Conc 31.6 g/dL (31.8-35.4); Mean Corpuscular Hemoglobin 32.5 pg (27.0-31.2); Mean Platelet Volume 7.6 fl (7.4-10.4); Monocytes # 0.9 K/mm3 (0.1-1.0); Monocytes % 5.5 % (1.7-9.3); Neutrophils # 13.6 K/mm3 (1.8-7.8); Neutrophils % 81.8 % (37.0-80.0); Platelet Count 359 K/mm3 (142-424); Red Blood Count 3.03 M/mm3 (4.60-6.20); Red Cell Distribution Width 15.6 % (11.5-17.5); White Blood Count 16.7 K/mm3 (4.8-10.8)
[2020-04-10 07:11] LABS: Blood Urea Nitrogen 12 mg/dl (9-20); Calcium 9.5 mg/dl (8.4-10.2); Carbon Dioxide 30 mmol/L (22.0-30.0); Creatinine Clearance Estimated 72 mL/min (50-200); Estimated Glomerular Filt Rate 52 ml/min (>60); GFR (African American) 62 ML/MIN (>60); Glucose 138 mg/dl (74-100)
[2020-04-10 07:12] LABS: Hemoglobin 9.9 g/dL (14.1-18.0); MANUAL DIFFERENTIAL MANUAL DIFFERENTIAL (MANUAL DIFF)
[2020-04-10 08:00] VITALS: BP 120/76; PULSE 105; RESP 18; TEMP 36.3; O2SAT 92
[2020-04-10 08:44] LABS: Eosinophils % 2 % (0-3); Lymphocytes % 14 % (10-50); Monocytes % 1 % (2-9); Neutrophils % 83 % (42-76); Platelet Estimate Normal; RBC Morphology Normal; Total Cells Counted 100
--- NOTE | 2020-04-10 09:41 | HMH.DCSUM ---
General - General Admission date:: 04/07/20 Discharge date: 04/10/20 HPI HPI: 59 yr old male presented to ed with c/o snf reports pt was unresponsive with crowe lips. Per ed note pt arrived A&O with O2 Sats 97%. Pt is sitting up c/o LLQ abd pain and CP earlier tonight. Labs show elevated wbc, elevated lact acid, and chest xray Pulmonary vascular congestion and low lung volumes.. pt admitted for further work up on ams and unresponsive. Hospital Course Hospital Course: Laboratory Tests 04/07/20 04/07/20 04/07/20 03:09 03:09 03:30 WBC 20.4 H* RBC 3.19 L Hgb 10.2 L Hct 32.7 L MCV 102.4 H MCH 32.0 H MCHC 31.2 L RDW 15.4 Plt Count 423 MPV 7.3 L Neut % (Auto) 82.0 H Lymph % (Auto) 10.8 [place] % (Auto) 4.7 Eos % (Auto) 1.7 Baso % (Auto) 0.8 Neut # (Auto) 16.7 H Lymph # (Auto) 2.2 [place] # (Auto) 1.0 Eos # (Auto) 0.4 Baso # (Auto) 0.2 Total Counted 100 Neutrophils % (Manual) 79 H Lymphocytes % (Manual) 9 L Monocytes % (Manual) 8 Eosinophils % (Manual) 1 Metamyelocytes % 2.0 H Blast Cells % 1.0 Platelet Estimate Normal RBC Morphology Not Reportable Macrocytosis 1+ ESR > 140 H Specimen Source O2 % ABG pH ABG pCO2 ABG pO2 ABG HCO3 ABG Total CO2 ABG O2 Saturation ABG Base Excess [place] Test Sodium 129 L Potassium 3.7 Chloride 92 L Carbon Dioxide 28 Anion Gap 12.7 BUN 15 Creatinine 1.40 H Estimated Creat Clear 71 Estimated GFR 52 L Est GFR ( Amer) 62 Glucose 187 H POC Glucose Lactate Calcium 9.3 Total Bilirubin 0.4 AST 25 ALT 27 Alkaline Phosphatase 108 Troponin I < 0.01 C-Reactive Protein 30.4 H Total Protein 8.6 H Albumin 4.2 Globulin 4.4 H Albumin/Globulin Ratio 1.0 L Amylase 72 Lipase 229 Procalcitonin 0.162 Urine Color Yellow Urine Appearance Clear Urine pH 6.0 Ur Specific [place] 1.025 Urine Protein Negative Urine Glucose (UA) Trace Urine Ketones Negative Urine Blood Negative Urine Nitrate Negative Urine Bilirubin Negative Urine Urobilinogen 0.2 Ur Leukocyte Esterase Negative Urine RBC None Urine WBC 5-10 Ur Squamous Epith Cells 5-10 Urine Bacteria 1+ 04/07/20 04/07/20 04/07/20 04:11 05:12 06:38 WBC RBC Hgb Hct MCV MCH MCHC RDW Plt Count MPV Neut % (Auto) Lymph % (Auto) [place] % (Auto) Eos % (Auto) Baso % (Auto) Neut # (Auto) Lymph # (Auto) [place] # (Auto) Eos # (Auto) Baso # (Auto) Total Counted Neutrophils % (Manual) Lymphocytes % (Manual) Monocytes % (Manual) Eosinophils % (Manual) Metamyelocytes % Blast Cells % Platelet Estimate RBC Morphology Macrocytosis ESR Specimen Source Right radial O2 % 2 lpm nc ABG pH 7.36 ABG pCO2 39.0 ABG pO2 118.8 H ABG HCO3 21.6 L ABG Total CO2 22.8 L ABG O2 Saturation 98 ABG Base Excess -3.8 L [place] Test Acceptable Sodium Potassium Chloride Carbon Dioxide Anion Gap BUN Creatinine Estimated Creat Clear Estimated GFR Est GFR ( Amer) Glucose POC Glucose Lactate 2.6 H Calcium Total Bilirubin AST ALT Alkaline Phosphatase Troponin I < 0.01 C-Reactive Protein Total Protein Albumin Globulin Albumin/Globulin Ratio Amylase Lipase Procalcitonin Urine Color Urine Appearance Urine pH Ur Specific [place] Urine Protein Urine Glucose (UA) Urine Ketones Urine Blood Urine Nitrate Urine Bilirubin Urine Urobilinogen Ur Leukocyte Esterase Urine RBC Urine WBC Ur Squamous Epith Cells Urine Bacteria 04/07/20 04/07/20 04/07/20 09:08 09:08 11:23 WBC RBC Hgb Hct MCV MCH
--- NOTE | 2020-04-10 10:07 | HMH.CNCARD ---
History of Present Illness Consult date: 04/10/20 Requesting physician: Roney Travis Consult reason: known to you Chief complaint: LLQ pain History of present illness: This is a 59-year-old white gentleman who was admitted to the hospital from the assisted with complaints that the patient was unresponsive with crowe lips. When the patient got to the emergency department he was alert and oriented with oxygen saturations at 97%. The patient did complain of left lower quadrant abdominal pain and chest pain per his H&P. He was then admitted for further work-up of his altered mental status and unresponsiveness. The patient had a CT of his abdomen which showed severe celiac artery stenosis. During my examination of the patient today he denies any chest pain or pressure. He denies any shortness of breath or edema. He denies any fever, chills, nausea, vomiting, diarrhea, PND or orthopnea. He denies any recent weight loss or early satiety. The patient's only complaint is that he is hungry and he really wants to eat. He states that he has not had any difficulty eating up until this point. Today the patient denies any abdominal pain. [facility] History I have reviewed the patient's past medical history: Yes Medical History: Reports:: Anxiety, Asthma, Atherosclerotic Heart Disease, Congestive Heart Failure, Congenital Heart Disease, Coronary Artery Disease, Depression, Diabetes Mellitus Type 2, Gastroesophageal Reflux Disease(GERD), Home Oxygen, Hyperlipidemia, Hypertension, Lung Disease, Osteoporosis Denies:: Cancer, Diabetes Mellitus Type 1, Internal Pacemaker, MRSA, Seizures *Have you ever received a pneumonia vaccine?: Yes *Have you received a flu vaccine this season?: Yes Other Medical History: Reports: Anemia, Arthritis, Cataracts, Hypothyroidism, Osteoporosis, Sinus Problems, Thyroid Disease, Other Laterality Cases: Bilateral: Carpal Tunnel Release, Cataract Other Surgeries: Yes: No Previous Surgery, Cardiac Catheterization, Colonoscopy, Coronary Stent, EGD, Hernia Repair, Other. No: Pacemaker Amputation: No Fractures: No - *Social History Smoking Status: Former smoker Tobacco Type: cigarettes Alcohol Intake: never Alcohol Intake Frequency:: 0-2 drinks per day Substance Use Type: marijuana *Occupational Status:: other Housing: assisted Household Members: other *Travel in the last 8 weeks: None - Psychiatric History Pschychiatric History:: Reports:: Anxiety, Depression Family Hx:: Unable to obtain Meds Home Medications Medication Instructions Recorded Confirmed Type atorvastatin 40 mg tablet 40 mg PO HS 03/24/17 04/07/20 History docusate sodium 250 mg capsule 250 mg PO DAILYP PRN 03/24/17 04/07/20 History furosemide 80 mg tablet 80 mg PO BID tab 03/24/17 04/07/20 History loratadine 10 mg tablet 10 mg PO DAILY 03/24/17 04/07/20 History isosorbide mononitrate 30 mg 30 mg PO DAILY 04/11/17 04/07/20 History tablet,extended release 24 hr folic acid 0.8 mg capsule 0.8 mg PO DAILY 09/30/17 04/07/20 History magnesium oxide 400 mg PO HS cap 09/30/17 04/07/20 History spironolactone 50 mg tablet 50 mg PO BID tab 09/30/17 04/07/20 History Acetaminophen 500 mg PO Q4HP PRN 11/10/17 04/07/20 History Omeprazole [Omeprazole 20mg 20 mg PO Q48H 11/10/17 04/07/20 History Capsule] Cyanocobalamin (Vitamin B-12) 750 mcg PO DAILY 11/11/17 04/07/20 History [Vitamin B-12] Levothyroxine Sodium 50 mcg PO DAILY 11/11/17 04/07/20 History [Levothyroxine 50mcg (0.05mg) Tab] Potassium Chloride [Klor-con 20 40 meq PO BID 11/11/17 04/07/20 History mEq tablet] Tamsulosin HCl [Flomax 0.4mg 0.4 mg PO DAILY 11/11/17 04/07/20 History capsule] losartan 25 mg tablet 12.5 mg PO DAILY tab 09/29/18 04/07/20 History Bisacodyl [Bisacodyl 10mg Supp] 10 mg RC DAILYP PRN 11/17/18 04/07/20 History Lactulose [Lactulose 10gm/15ml 20 gm PO DAILYP PRN 11/17/18 04/07/20 History Oral Soln] Mag Carb/Aluminum Hydrox/Algin 30 ml PO Q4HP PRN 10
[2020-04-10 12:13] LABS: POC Glucose,Bedside 155 (70-110)
== END 2020-04-10 12:37 | DRG 392 ==
LOC: ER 03:16 → 2ND 07:15
PROVIDERS: Admitting Provider Emergency Medicine; Emergency Provider Emergency Medicine; PCP Emergency Medicine; Visit Provider Emergency Medicine
DX: I77.4 Celiac artery compression syndrome (principal); E78.5 Hyperlipidemia, unspecified; I25.10 Atherosclerotic heart disease of native coronary artery without angina pectoris; I11.0 Hypertensive heart disease with heart failure; I50.9 Heart failure, unspecified; E03.9 Hypothyroidism, unspecified; Z99.81 Dependence on supplemental oxygen; D64.9 Anemia, unspecified; Z95.5 Presence of coronary angioplasty implant and graft; Z87.891 Personal history of nicotine dependence; F25.9 Schizoaffective disorder, unspecified; Z88.5 Allergy status to narcotic agent; Z88.8 Allergy status to other drugs, medicaments and biological substances; Z79.4 Long term (current) use of insulin; Z79.51 Long term (current) use of inhaled steroids; Z79.82 Long term (current) use of aspirin; E11.9 Type 2 diabetes mellitus without complications; M81.0 Age-related osteoporosis without current pathological fracture
CPT/HCPCS: 36415; 71045; 74177; 80048; 80053; 81001; 82150; 82803; 82962; 83605; 83690; 84145; 84484; 85007; 85025; 85651; 86140; 87040; 87077; 87086; 87186; 93005; 96365; 96366; 96367; 96375; 99285; J1956; J2405; J3370; Q9967; U0003

== ENCOUNTER → 2020-04-28 10:40 | Outpatient (CLI) | payer MEDICARE, MEDICAID, SELFPAY ==
--- NOTE | 2020-04-28 10:41 | US_ITS ---
PROCEDURE: US KIDNEY CLINICAL INDICATION: R93.5 - Abnormal findings on diagnostic imaging of other abdominal regions, including retroperitoneum COMPARISON: CT ABDPELW CT abdomen pelvis w con from 11/11/[address] ABDOMEN PELVIS WO CON from 01/25/[address] ABDOMEN PELVIS W CON from 04/07/2020 FINDINGS: The right kidney is 9 x 6 x 5 cm in the left kidney is 10 by by [address] scan demonstrated a new indeterminate 1.2 cm right renal lesion.. This area is not well delineated. The exam somewhat limited due to patient's body habitus. The region of interest does demonstrate an area of decreased echogenicity with a small focus of increased echogenicity anteriorly and may represent a complex cyst. Follow-up suggested to confirm stability. IMPRESSION: Previously noted renal lesion on the right is felt to be due to a complex cyst. The degree of certainty however is limited due to limitations of the exam. Would recommend a [address] follow-up with renal protocol without and with contrast to confirm short term stability Dictated by: Edmar Sifuentes MD 04/28/2020 17:25 Edmar Sifuentes MD in [place] 04/28/2020 17:25
== END ==
PROVIDERS: PCP Emergency Medicine; Visit Provider Nurse Practitioner Family
DX: R93.5 Abnormal findings on diagnostic imaging of other abdominal regions, including retroperitoneum (principal)
CPT/HCPCS: 76770

== ENCOUNTER 2020-06-01 11:17 | Emergency (ER) | payer MEDICARE, MEDICAID, SELFPAY ==
[2020-06-01] VITALS (9 sets, daily range): BP systolic 90–116; BP diastolic 50–77; PULSE 75–98; RESP 14–26; TEMP 36.8; O2SAT 91–99; BMI 36.6
--- NOTE | 2020-06-01 11:00 | ECG_ITS ---
APPROVED REPORT Exam: Resting ECG HR:101 bpm ECG Measurements Heart Rate 101 AXES FL 154 P 30 QRSd 86 QRS 78 QT 300 T 60 QTc 389 Conclusion Sinus tachycardia Otherwise normal ECG Electronically signed by : Fritz Acosta, 06/04/2020 07:35:13
--- NOTE | 2020-06-01 11:21 | XR_ITS ---
PROCEDURE: XR CHEST PORTABLE CLINICAL HISTORY: soa Shortness of breath COMPARISON: CT CT CHEST WO CON from 02/25/2020 CR XR CHEST PORTABLE from 02/27/2020 CR XR CHEST PORTABLE from 02/28/2020 CR XR CHEST AP from 04/07/2020 FINDINGS: Cardiomegaly without failure. Mildly prominent mediastinum. The lungs are clear without infiltrates, suspicious nodules, or pleural effusions. No acute bony abnormalities. IMPRESSION: No change with no acute finding Dictated by: Edmar Sifuentes MD 06/01/2020 12:13 Edmar Sifuentes MD in [place] 06/01/2020 12:13
[2020-06-01 11:33] LABS: Basophils # 0.1 K/mm3 (0-0.2); Basophils % 0.4 % (0.1-2.0); Eosinophils # 0.3 K/mm3 (0.0-0.4); Eosinophils % 1.9 % (0.1-12.0); Hematocrit 33.4 % (42.0-52.0); Hemoglobin 10.6 g/dL (14.1-18.0); Lymphocytes # 1.9 K/mm3 (0.7-4.5); Lymphocytes % 11.3 % (10-50); Mean Corpuscular HGB Conc 31.8 g/dL (31.8-35.4); Mean Corpuscular Hemoglobin 31.3 pg (27.0-31.2); Mean Corpuscular Volume 98.2 fl (80-94); Mean Platelet Volume 7.5 fl (7.4-10.4); Monocytes # 0.7 K/mm3 (0.1-1.0); Monocytes % 4.4 % (1.7-9.3); Neutrophils # 13.7 K/mm3 (1.8-7.8); Platelet Count 406 K/mm3 (142-424); Red Cell Distribution Width 14.5 % (11.5-17.5); White Blood Count 16.7 K/mm3 (4.8-10.8)
--- NOTE | 2020-06-01 11:33 | HMH.EDCP ---
ED Disposition Clinical Impression: Chest pain Disposition: Xfer [facility] Hospital Condition on Discharge: Good Referrals: PCP,No [Non-Staff] - - Critical Care Critical Care Time: No Attestation: On 06/01/20, the high probability of a clinically significant, sudden or life threatening deterioration of the following system(s) required my full and direct attention, intervention and personal management. The time I documented below is in addition to time spent performing reported procedures but includes the following listed in this critical care notation. Medical Decision Making - Medical Records Medical records reviewed: Yes: I reviewed the patient's medical records. - Gaudencio Inquiry Pt receiving controlled substance: No Vital Signs: 06/01/20 11:17 06/01/20 12:00 06/01/20 12:45 Temperature 98.3 F Temperature Source Oral Pulse Rate 95 H 92 H Pulse Rate [Right] 98 H Respiratory Rate 18 26 H 24 Blood Pressure 90/58 L 92/55 L Blood Pressure [Right Arm] 94/50 L Blood Pressure Mean [Right Arm] 64 02 Sat by Pulse Oximetry 97 91 L 92 L Oxygen Delivery Method Nasal Cannula Oxygen Flow Rate (LPM) 2 06/01/20 13:00 06/01/20 13:30 06/01/20 14:30 Temperature Temperature Source Pulse Rate 94 H 92 H 90 Pulse Rate [Right] Respiratory Rate 19 17 24 Blood Pressure 107/61 L 116/64 109/77 L Blood Pressure [Right Arm] Blood Pressure Mean [Right Arm] 02 Sat by Pulse Oximetry 99 95 98 Oxygen Delivery Method Oxygen Flow Rate (LPM) 06/01/20 15:00 Temperature Temperature Source Pulse Rate 92 H Pulse Rate [Right] Respiratory Rate 14 Blood Pressure 104/67 L Blood Pressure [Right Arm] Blood Pressure Mean [Right Arm] 02 Sat by Pulse Oximetry 97 Oxygen Delivery Method Oxygen Flow Rate (LPM) - Lab Data Lab Results 06/01/20 11:15: WBC 16.7 H, RBC 3.40 L, Hgb 10.6 L, Hct 33.4 L, MCV 98.2 H, MCH 31.3 H, MCHC 31.8, RDW 14.5, Plt Count 406, MPV 7.5, Neut % (Auto) 82.0 H, Lymph % (Auto) 11.3, [place] % (Auto) 4.4, Eos % (Auto) 1.9, Baso % (Auto) 0.4, Neut # (Auto) 13.7 H, Lymph # (Auto) 1.9, [place] # (Auto) 0.7, Eos # (Auto) 0.3, Baso # (Auto) 0.1, Total Counted 100, Neutrophils % (Manual) 78 H, Lymphocytes % (Manual) 13, Monocytes % (Manual) 8, Eosinophils % (Manual) 1, Platelet Estimate Normal, RBC Morphology Normal 06/01/20 11:15: Sodium 129 L, Potassium 4.6, Chloride 94 L, Carbon Dioxide 26, Anion Gap 13.6, BUN 22 H, Creatinine 1.50 H, Estimated Creat Clear 73, Estimated GFR 48 L, Est GFR ( Amer) 58 L, Glucose 165 H, Calcium 10.0, Magnesium 2.0, Troponin I < 0.01, NT-Pro-B Natriuret Pep 36.8 06/01/20 11:18: D-Dimer 0.61 H 06/01/20 11:22: VBG pH 7.34, VBG pCO2 46.7, VBG pO2 77.0 H, VBG HCO3 24.7, VBG Total CO2 26.1, VBG O2 Saturation 94.5 H, VBG Base Excess -1.1 06/01/20 14:40: Troponin I < 0.01 Result diagrams: 06/01/20 11:15 06/01/20 11:15 Orders (Tests/Meds): ORDERS Category Date Time Status Troponin I Q3H Lab 06/01/20 17:30 Ordered Medical Decision Narrative: 59-year-old male presents with chest pain as above. He is in no acute distress nontoxic-appearing comfortable in the bed. He is on his home oxygen requirement. EKG showed no evidence of ST or T wave changes. Cardiac work-up was initiated. I doubt pulmonary embolism aortic dissection pneumothorax or other emergent etiology. D-dimer was negative as well per years criteria and age-adjusted D-dimer criteria for pulmonary embolism Troponin was negative patient very stable in the emergency department. He does have history of hypotension and his blood pressure has been stable on multiple rechecks in the emergency department. It appears that he is mildly dehydrated recommended p.o. fluid replacement. I discussed case with his primary care physician and they are agreeable to recommend that he go back to the skilled nursing. Chest Pain HPI - General Chief Complaint: Chest Pain Stated Complaint: CHEST PAIN Ti
[2020-06-01 11:34] LABS: Chloride 94 mmol/L (98-107); Potassium 4.6 mmoL/L (3.5-5.1); Sodium 129 mmol/L (136-145)
[2020-06-01 11:37] LABS: Anion Gap 13.6 mEq/L (5-15); Blood Urea Nitrogen 22 mg/dl (9-20); Carbon Dioxide 26 mmol/L (22.0-30.0); Creatinine Clearance Estimated 73 mL/min (50-200); Estimated Glomerular Filt Rate 48 ml/min (>60); GFR (African American) 58 ML/MIN (>60); Glucose 165 mg/dl (74-100)
[2020-06-01 11:41] LABS: MANUAL DIFFERENTIAL MANUAL DIFFERENTIAL (MANUAL DIFF)
[2020-06-01 11:44] LABS: VBG Base Excess -1.1 mmol/L (-2.4-2.3); VBG HCO3 24.7 mmol/L (23-30); VBG Oxygen Saturation 94.5 % (50-70); VBG PCO2 46.7 mmol/L (35-51); VBG PH 7.34 mmol/L (7.31-7.41); VBG Total CO2 26.1 mmol/L (23-27)
[2020-06-01 11:47] LABS: NT Pro Brain Natriuretic Pep. 36.8 pg/mL (0-125)
[2020-06-01 11:50] LABS: Troponin I < 0.01 ng/ml (0.00-0.034)
[2020-06-01 11:56] LABS: Eosinophils % 1 % (0-3); Lymphocytes % 13 % (10-50); Monocytes % 8 % (2-9); Neutrophils % 78 % (42-76); Total Cells Counted 100
[2020-06-01 11:57] LABS: Platelet Estimate Normal; RBC Morphology Normal
[2020-06-01 12:13] LABS: D-Dimer 0.61 ug/mL (0.0-0.5)
--- NOTE | 2020-06-01 12:30 | PC.NURSE ---
Dr Newman speaking with Dr burt
[2020-06-01 15:17] LABS: Troponin I < 0.01 ng/ml (0.00-0.034)
--- NOTE | 2020-06-01 16:00 | PC.NURSE ---
KAMAR Betancourt calling report to [place] at this time.
--- NOTE | 2020-06-01 16:01 | PC.NURSE ---
[facility] called for transport back to [place].
--- NOTE | 2020-06-01 16:02 | PC.NURSE ---
REPORT CALLED TO [facility]
--- NOTE | 2020-06-01 16:20 | PC.NURSE ---
[facility] at bedside.
== END 2020-06-01 16:26 ==
PROVIDERS: Emergency Provider Emergency Medicine; PCP Emergency Medicine
DX: R07.9 Chest pain, unspecified (principal); F41.8 Other specified anxiety disorders; E11.65 Type 2 diabetes mellitus with hyperglycemia; K21.9 Gastro-esophageal reflux disease without esophagitis; E78.5 Hyperlipidemia, unspecified; I10 Essential (primary) hypertension; E03.9 Hypothyroidism, unspecified; Z87.891 Personal history of nicotine dependence; Z88.5 Allergy status to narcotic agent; Z79.899 Other long term (current) drug therapy; I50.9 Heart failure, unspecified
CPT/HCPCS: 71045; 80048; 82803; 83735; 83880; 84484; 85007; 85025; 85378; 93005; 99283

== ENCOUNTER → 2020-06-12 09:55 | Outpatient (CLI) | payer MEDICARE, MEDICAID, SELFPAY | PROVIDERS: PCP Emergency Medicine; Visit Provider Internal Medicine Pulmonary Disease | DX: R06.09 Other forms of dyspnea (principal) | CPT/HCPCS: 94010 ==

== ENCOUNTER → 2020-06-27 20:12 | Outpatient (CLI) | payer MEDICARE, MEDICAID, SELFPAY | PROVIDERS: PCP Emergency Medicine; Visit Provider Specialist | DX: G47.33 Obstructive sleep apnea (adult) (pediatric) (principal); R09.02 Hypoxemia | CPT/HCPCS: 95811 ==

== ENCOUNTER → 2020-08-03 09:43 | Outpatient (CLI) | payer MEDICARE, MEDICAID, SELFPAY ==
--- NOTE | 2020-08-03 09:57 | CT_ITS ---
PROCEDURE: CT ABDOMEN PELVIS WO/W CON CLINICAL INDICATION: Follow-up renal mass COMPARISON: CT CT ABDOMEN PELVIS W CON from 04/07/2020 TECHNIQUE: IV Contrast: 75ML Isovue 370 Oral Contrast None Axial images obtained with sagittal and coronal reformats. All CT scans at the facility use one or more dose reduction, viz: automated exposure control, ma/kV adjustment per patient size (including targeted exams where dose is matched to indication, i.e. head), or iterative reconstruction technique. FINDINGS: There is some scar versus atelectasis in the lung bases. Without IV contrast portion of the study shows no renal ureteral or bladder calculi. No CT evidence of obstructive uropathy. With IV contrast portion of the study shows mild diffuse fatty infiltration of the liver. No focal liver or splenic lesions. A few small calcifications again noted in the spleen. Gallbladder pancreas and adrenal glands are normal. 1.2 cm low-attenuation lesion on the upper pole of the right kidney again noted most consistent with a complex cyst. Repeat CT abdomen in 3 months recommended for continued close follow-up. Left kidney is normal. No upper abdominal lymphadenopathy. Some mild calcification of the abdominal aorta without aneurysm. There is no distended large or small bowel or bowel wall thickening. No free intraperitoneal air or fluid. Bladder is normal. Several surgical clips noted in the pelvis. Prostate gland and seminal vesicles appear normal. No inguinal or femoral hernia. No enlarged iliac or inguinal chain lymph nodes. Moderate amount of stool throughout the colon. Mild diffuse degenerative changes of the lumbar spine are present. No acute bony abnormality. IMPRESSION: Unchanged 1.2 cm complex cystic lesion on the upper pole of the right kidney, likely a complex cyst. Repeat CT abdomen in 3 months recommended for continued close follow-up. Some diffuse fatty infiltration of the liver. No free intraperitoneal air or fluid. Mild calcification of the abdominal aorta without aneurysm. Dictated by: Luis Villagomez MD 08/03/2020 12:18 Luis Villagomez MD in [place] 08/03/2020 12:18
[2020-08-03 10:48] LABS: Blood Urea Nitrogen 14 mg/dl (9-20); Estimated Glomerular Filt Rate 68 ml/min (>60); GFR (African American) 82 ML/MIN (>60)
== END ==
PROVIDERS: PCP Emergency Medicine; Visit Provider Physician Assistant
DX: E66.09 Other obesity due to excess calories (principal); E78.2 Mixed hyperlipidemia; I11.9 Hypertensive heart disease without heart failure; I25.10 Atherosclerotic heart disease of native coronary artery without angina pectoris; I73.9 Peripheral vascular disease, unspecified; I77.4 Celiac artery compression syndrome; N28.9 Disorder of kidney and ureter, unspecified; R06.02 Shortness of breath; Z68.35 Body mass index [BMI] 35.0-35.9, adult
CPT/HCPCS: 36415; 74178; 82565; 84520; Q9967

== ENCOUNTER → 2020-09-13 12:51 | Outpatient (CLI) | payer MEDICARE, MEDICAID, SELFPAY ==
--- NOTE | 2020-09-13 13:06 | FL_ITS ---
PROCEDURE: FL BARIUM SWALLOW MODIFIED CLINICAL INDICATION: DYSPHAGIA COMPARISON: No exams were available for comparison TECHNIQUE: Patient administered varying consistencies of barium contrast, while viewed in lateral position under real-time fluoroscopy with cine recording. FLUOROSCOPY TIME:2 minutes and 36 seconds The study was performed in conjunction with speech pathologist. Please see that report & recommendations. FINDINGS: Patient was given varying consistencies of barium. No obvious aspiration or penetration. The exam is somewhat limited secondary to patient's body habitus positioning with artifact from air within the sinuses.. IMPRESSION: Limited exam. No obvious aspiration or penetration. Please see speech pathologist report and recommendations. Dictated by: Edmar Sifuentes MD 09/13/2020 16:15 Edmar Sifuentes MD in [place] 09/13/2020 16:15
--- NOTE | 2020-09-13 14:22 | HMH.SLMBS2 ---
Speech & Language Evaluation Speech/Language Mod Barium Swallow Start: 09/13/20 13:56 Freq: once Status: Complete Protocol: Document 09/13/20 13:56 ASHLYN (Rec: 09/13/20 14:22 ASHLYN [id number]) General Information General Current Food Consistancy Regular,Chopped Meats,[place] Liquids Dentition Poor Dentition Oxygen Status Nasal Cannula Patient Orientation Person Ability to Follow Directions Good Communication Ability Mild Impairment MBS Recommendations Diet Dietary Recommendations Regular,Chopped Meats,Thin Liquids Treatment/Strategies Strategy/Precaution Recommend Sitting Upright (90 deg),No Straw,Small Bites and Sips, Alternate Liquids/Solids Mod Barium Swallow Impressions Summary and Impressions Oral Phase Impression No Impairment (WFL) Oral Phase Summary Mr. Blakely was given the following consistencies: nectar, thins via straw and open cup, pudding, mechanical soft, regular, and pill with thin wash. No oral phase impairments were noted. Pharyngeal Phase Impression Minimal Impairment Pharyngeal Phase Summary Penetration into laryngeal vestibule was noted with thin liquids via straw however no aspiration noted. Speech/Language MBS Assessment/Goals/Plan Assessment Date of Evaluation: 09/13/20 Evaluation Type Initial Certification Assessment/Problems Dysphagia Does Patient Qualify for Service No Qualify/Failure Comment Patient to follow up with VIDEO EDITING INTERN at SNF to determine ST needs. Plan Pt/Guardian verbally ack understanding Yes of dx/prognosis/goals G -code Required No Mod Barium Swallow Setup Exam Setup Radiologist Edmar Sifuentes Level of Consciousness Awake,Alert,Appropriate, Follows Commands Position (degrees) 90 Mod Barium Swallow-Lat View Textures Lateral View Food Presentation Thin Liquid via Cup,Thin Liquid via Straw,[place] Liquid via Cup,[place] Liquid via Straw,Ground Food- Regular, Barium Tablet,Regular Food, Pudding Oral Phase Labial Closure No Impairment (WFL) Bolus Formation Pooling L/R No Impairment (WFL) Bolus Formation under Tongue No Impairment (WFL) Bolus Formation Scatt
== END ==
PROVIDERS: PCP Emergency Medicine; Visit Provider Emergency Medicine
DX: R13.10 Dysphagia, unspecified (principal)
CPT/HCPCS: 70371; 92611

== ENCOUNTER 2020-10-12 05:21 | Emergency (ER) | payer MEDICARE, MEDICAID, SELFPAY ==
[2020-10-12] VITALS (7 sets, daily range): BP systolic 109–128; BP diastolic 73–82; PULSE 72–99; RESP 15–16; TEMP 36.6; O2SAT 85–98; BMI 35.2
--- NOTE | 2020-10-12 04:56 | PC.NURSE ---
RECEIVED REPORT FROM PAULINO AT [facility]
[2020-10-12 05:35] LABS: POC Glucose,Bedside 206 (70-110)
[2020-10-12 05:50] LABS: Basophils # 0.1 K/mm3 (0-0.2); Basophils % 0.7 % (0.1-2.0); Eosinophils # 0.3 K/mm3 (0.0-0.4); Eosinophils % 2.2 % (0.1-12.0); Hematocrit 36.6 % (42.0-52.0); Hemoglobin 11.6 g/dL (14.1-18.0); Lymphocytes # 1.9 K/mm3 (0.7-4.5); Lymphocytes % 13.4 % (10-50); Mean Corpuscular HGB Conc 31.7 g/dL (31.8-35.4); Mean Corpuscular Hemoglobin 31.8 pg (27.0-31.2); Mean Corpuscular Volume 100.4 fl (80-94); Mean Platelet Volume 8.5 fl (7.4-10.4); Monocytes # 0.6 K/mm3 (0.1-1.0); Monocytes % 4.1 % (1.7-9.3); Neutrophils # 11.1 K/mm3 (1.8-7.8); Neutrophils % 79.6 % (37.0-80.0); Platelet Count 382 K/mm3 (142-424); Red Blood Count 3.64 M/mm3 (4.60-6.20); Red Cell Distribution Width 15.5 % (11.5-17.5)
[2020-10-12 05:55] LABS: Alanine Aminotransferase 33 U/L (12-78); Albumin Level 4.1 g/dl (3.5-5.0); Alkaline Phosphatase 101 U/L (38-126); Anion Gap 16.2 mEq/L (5-15); Aspartate Amino Transferase 33 U/L (17-59); Bilirubin,Total 0.4 mg/dl (0.2-1.3); Blood Urea Nitrogen 18 mg/dl (9-20); Carbon Dioxide 33 mmol/L (22.0-30.0); Chloride 92 mmol/L (98-107); Creatinine Clearance Estimated 76 mL/min (50-200); Estimated Glomerular Filt Rate 56 ml/min (>60); GFR (African American) 68 ML/MIN (>60); Globulin 4.2 g/dL (1.3-3.2); Glucose 208 mg/dl (74-100); Potassium 4.2 mmoL/L (3.5-5.1); Sodium 137 mmol/L (136-145); Total Protein,Serum 8.3 g/dl (6.3-8.2)
[2020-10-12 06:05] LABS: Microscopic, Urine URINE MICROSCOPIC (MICROSCOPIC)
[2020-10-12 06:07] LABS: Troponin I < 0.01 ng/ml (0.00-0.034)
--- NOTE | 2020-10-12 06:07 | HMH.EDAMS ---
ED Disposition Clinical Impression: Altered mental status Qualifiers: Altered mental status type: unspecified Qualified Code(s): R41.82 - Altered mental status, unspecified Disposition: Home, Self-Care Condition on Discharge: Good Instructions: DI for Altered Mental Status Additional Instructions: resume prev orders Referrals: Provider,Referral, [Referring] - - Critical Care Critical Care Time: No Attestation: On 10/12/20, the high probability of a clinically significant, sudden or life threatening deterioration of the following system(s) required my full and direct attention, intervention and personal management. The time I documented below is in addition to time spent performing reported procedures but includes the following listed in this critical care notation. Medical Decision Making - Medical Records Medical records reviewed: Yes: I reviewed the patient's medical records. - Gaudencio Inquiry Pt receiving controlled substance: No Vital Signs: 10/12/20 04:56 10/12/20 05:25 10/12/20 05:30 Temperature 97.9 F Temperature Source Oral Pulse Rate 99 H 94 H Pulse Rate [Right Brachial] 72 Respiratory Rate 16 Blood Pressure 126/74 128/73 Blood Pressure [Right Arm] 128/73 Blood Pressure Mean 91 Blood Pressure Mean [Right Arm] 91 Blood Pressure Source Blood Pressure Source [Right Arm] Automatic Cuff Blood Pressure Position Blood Pressure Position [Right Arm] Sitting 02 Sat by Pulse Oximetry 96 95 85 L Oxygen Delivery Method Room Air 10/12/20 05:34 10/12/20 05:37 10/12/20 06:00 Temperature Temperature Source Pulse Rate 74 91 H 91 H Pulse Rate [Right Brachial] Respiratory Rate 15 Blood Pressure 126/74 109/76 L 118/82 Blood Pressure [Right Arm] Blood Pressure Mean 82 89 Blood Pressure Mean [Right Arm] Blood Pressure Source Automatic Cuff Blood Pressure Source [Right Arm] Blood Pressure Position Sitting Blood Pressure Position [Right Arm] 02 Sat by Pulse Oximetry 98 88 L 93 L Oxygen Delivery Method Room Air - Lab Data Lab results reviewed: Yes: I reviewed the patient's lab results. Lab Results 10/12/20 05:27: POC Glucose 206 H 10/12/20 05:30: WBC 14.0 H, RBC 3.64 L, Hgb 11.6 L, Hct 36.6 L, MCV 100.4 H, MCH 31.8 H, MCHC 31.7 L, RDW 15.5, Plt Count 382, MPV 8.5, Neut % (Auto) 79.6, Lymph % (Auto) 13.4, [place] % (Auto) 4.1, Eos % (Auto) 2.2, Baso % (Auto) 0.7, Neut # (Auto) 11.1 H, Lymph # (Auto) 1.9, [place] # (Auto) 0.6, Eos # (Auto) 0.3, Baso # (Auto) 0.1 10/12/20 05:30: Sodium 137, Potassium 4.2, Chloride 92 L, Carbon Dioxide 33 H, Anion Gap 16.2 H, BUN 18, Creatinine 1.30 H, Estimated Creat Clear 76, Estimated GFR 56 L, Est GFR ( Amer) 68, Glucose 208 H, Calcium 9.0, Total Bilirubin 0.4, AST 33, ALT 33, Alkaline Phosphatase 101, Troponin I < 0.01, Total Protein 8.3 H, Albumin 4.1, Globulin 4.2 H, Albumin/Globulin Ratio 1.0 L 10/12/20 05:47: Urine Color Yellow, Urine Appearance Clear, Urine pH 6.0, Ur Specific [place] 1.025, Urine Protein Negative, Urine Glucose (UA) Negative, Urine Ketones Negative, Urine Blood Trace-i, Urine Nitrate Negative, Urine Bilirubin Negative, Urine Urobilinogen 0.2, Ur Leukocyte Esterase Negative, Urine RBC Occasional, Urine WBC 3-5, Ur Squamous Epith Cells Occasional, Urine Bacteria None Result diagrams: 10/12/20 05:30 10/12/20 05:30 Orders (Tests/Meds): ORDERS Category Date Time Status Troponin I Q3H Lab 10/12/20 08:45 Ordered Troponin I Q3H Lab 10/12/20 11:45 Ordered Medical Decision Narrative: stable vital signs and exam with stable labs Altered Mental Status HPI - General Chief Complaint: Altered Mental Status Stated Complaint: altered mental status Time Seen by Provider: 10/12/20 05:25 Mode of Arrival: EMS Source of Information: Patient, EMS, Medical Record Limitations: Physical Limitations Description of Symptoms (Recalled from ER Triage Doc. by RN): PT SENT TO ED TO BE EVALUATED
[2020-10-12 06:12] LABS: Appearance,Urine CLEAR (Clear); Bilirubin,Urine Negative (Negative); Blood, Urine TRACE-I (Negative); Color,Urine YELLOW (Yellow); Glucose,Urine (UA) Negative (Negative); Ketones,Urine Negative (Negative); Leukocyte Esterase,Urine Negative (Negative); Nitrate,Urine Negative (Negative); Protein,Urine Negative (Negative); Specific Gravity, Urine 1.025 (1.005-1.030); Urobilinogen,Urine 0.2 EU/dl (0.2)
[2020-10-12 06:34] LABS: RBC,Urine Occasional #/hpf (0-3); Squamous Epithelial Cell,Urine Occasional #/hpf (0-5)
--- NOTE | 2020-10-12 07:09 | PC.NURSE ---
called dietary to order a breakfast tray
--- NOTE | 2020-10-12 08:05 | PC.NURSE ---
ATTEMPTED TO CALL REPORT TO [facility]. NO ANSWER FROM NURSE. UNIT SEC. STATES SHE WILL NOTIFY NURSE AND CALL BACK
--- NOTE | 2020-10-12 08:46 | PC.NURSE ---
D/TRISHA WITH INSTRUCTIONS TO [facility].
== END 2020-10-12 08:48 | disposition home or self-care (01) ==
PROVIDERS: Emergency Provider Emergency Medicine; PCP Emergency Medicine
DX: R41.82 Altered mental status, unspecified (principal); I25.10 Atherosclerotic heart disease of native coronary artery without angina pectoris; E11.9 Type 2 diabetes mellitus without complications; K21.9 Gastro-esophageal reflux disease without esophagitis; E78.5 Hyperlipidemia, unspecified; I10 Essential (primary) hypertension; E03.9 Hypothyroidism, unspecified; F41.9 Anxiety disorder, unspecified; M81.0 Age-related osteoporosis without current pathological fracture; Z88.5 Allergy status to narcotic agent; F25.9 Schizoaffective disorder, unspecified; Z79.899 Other long term (current) drug therapy
CPT/HCPCS: 80053; 81001; 82962; 84484; 85025; 99283

== ENCOUNTER → 2020-10-19 09:29 | Outpatient (CLI) | payer MEDICARE, MEDICAID, SELFPAY ==
--- NOTE | 2020-10-19 09:29 | CT_ITS ---
PROCEDURE: CT ABDOMEN PELVIS WO/W CON CLINICAL INDICATION: renal lesion Follow-up renal lesion COMPARISON: CT CTAC CTA-CHEST from 07/26/2015 MR ABC MRI-ABD W/WO from 12/27/[address] abdomen pelvis w con from 11/11/[address] ABDOMEN PELVIS W CON from 04/07/[address] ABDOMEN PELVIS WO/W CON from 08/03/2020 TECHNIQUE: IV Contrast: 75ML Isovue 370 Oral Contrast None Axial images obtained with sagittal and coronal reformats. All CT scans at the facility use one or more dose reduction, viz: automated exposure control, ma/kV adjustment per patient size (including targeted exams where dose is matched to indication, i.e. head), or iterative reconstruction technique. FINDINGS: LOWER THORAX: The right hemidiaphragm is elevated. Coronary artery calcifications and/or stents are noted. ABDOMEN & PELVIS: Diffuse fatty liver infiltration. Gallbladder is somewhat distended. No focal liver lesion apparent. The spleen pancreas, and adrenal glands have an unremarkable appearance. There is an exophytic I so density projecting off the anterior aspect of the right kidney measuring 11 mm. This is not significantly changed. No calcification of the nodule. No new abnormalities evident of the kidneys. No renal or ureteral calculi. No hydronephrosis. No intestinal obstruction or free air. No evidence of appendicitis or diverticulitis. There are few colonic diverticula. There is mild thickening of the urinary bladder wall. Postsurgical changes are present involving the abdominal wall. No acute bony anomalies. IMPRESSION: No interval change 11 mm right renal nodule suggesting a right renal cyst. Suggest 9 month follow-up to confirm 1 year continued stability. Dictated by: Edmar Sfiuentes MD 10/24/2020 09:20 Edmar Sifuentes MD in [place] 10/24/2020 09:20
== END ==
PROVIDERS: PCP Emergency Medicine; Visit Provider Physician Assistant
DX: E66.9 Obesity, unspecified (principal); E78.5 Hyperlipidemia, unspecified; I11.9 Hypertensive heart disease without heart failure; I25.10 Atherosclerotic heart disease of native coronary artery without angina pectoris; I73.9 Peripheral vascular disease, unspecified; I77.4 Celiac artery compression syndrome; N28.9 Disorder of kidney and ureter, unspecified; R06.02 Shortness of breath; Z68.35 Body mass index [BMI] 35.0-35.9, adult
CPT/HCPCS: 74178; Q9967

== ENCOUNTER 2021-02-08 10:44 | Inpatient (IN) | payer MEDICARE, MEDICAID, SELFPAY ==
[2021-02-08] VITALS (19 sets, daily range): BP systolic 112–127; BP diastolic 64–91; PULSE 87–112; RESP 15–20; TEMP 37.3–38.3; O2SAT 92–97; BMI 31.6; BMI 31.7
--- NOTE | 2021-02-08 10:51 | XR_ITS ---
PROCEDURE INFORMATION: Exam: XR Chest Exam date and time: 02/08/2021 10:51 AM Age: 60 years old Clinical indication: Other: AMS, weakness TECHNIQUE: Imaging protocol: XR of the chest. Views: 1 view. COMPARISON: CR XR CHEST PORTABLE 06/01/2020 11:49 AM FINDINGS: Lungs: Unremarkable. No consolidation. Pleural spaces: Unremarkable. No pleural effusion. No pneumothorax. Heart/Mediastinum: The heart is enlarged. Bones/joints: Unremarkable. IMPRESSION: 1. No acute findings. 2. Cardiomegaly.
--- NOTE | 2021-02-08 11:07 | ECG_ITS ---
APPROVED REPORT Exam: Resting ECG HR:110 bpm ECG Measurements Heart Rate 110 AXES DC 146 P 20 QRSd 76 QRS 83 QT 298 T 1 QTc 403 Conclusion Sinus tachycardia RSR' or QR pattern in V1 suggests right ventricular conduction delay T wave abnormality, consider inferior ischemia Abnormal ECG Electronically signed by : Fritz Acosta MD 02/09/2021 12:36:56
--- NOTE | 2021-02-08 11:13 | HMH.EDGENADL ---
ED Disposition Clinical Impression: Healthcare-associated pneumonia, Delirium, TAURUS (acute kidney injury) Sepsis Qualifiers: Sepsis type: sepsis due to unspecified organism Sepsis acute organ dysfunction status: with acute organ dysfunction Severe sepsis acute organ dysfunction type: acute renal failure Acute renal failure type: unspecified Severe sepsis shock status: without septic shock Qualified Code(s): A41.9 - Sepsis, unspecified organism Disposition: Admitted As Inpatient Condition on Discharge: Serious - Critical Care Critical Care Time: No Attestation: On 02/08/21, the high probability of a clinically significant, sudden or life threatening deterioration of the following system(s) required my full and direct attention, intervention and personal management. The time I documented below is in addition to time spent performing reported procedures but includes the following listed in this critical care notation. Medical Decision Making - Gaudencio Inquiry Pt receiving controlled substance: No Vital Signs: 02/08/21 10:44 02/08/21 11:00 02/08/21 11:30 Temperature 101.0 F H Temperature Source Axillary Pulse Rate 108 H 109 H Pulse Rate [Right] 101 H Respiratory Rate 20 15 Blood Pressure 119/83 119/73 Blood Pressure [Right Arm] 119/90 Blood Pressure Mean 92 88 Blood Pressure Mean [Right Arm] 99 Blood Pressure Source [Right Arm] Automatic Cuff Blood Pressure Position [Right Arm] Sitting 02 Sat by Pulse Oximetry 97 96 97 Oxygen Delivery Method Nasal Cannula Nasal Cannula Nasal Cannula Oxygen Flow Rate (LPM) 2 02/08/21 12:00 02/08/21 12:30 02/08/21 13:00 Temperature Temperature Source Pulse Rate 87 112 H 109 H Pulse Rate [Right] Respiratory Rate 16 15 Blood Pressure 119/90 126/82 121/83 Blood Pressure [Right Arm] Blood Pressure Mean 99 96 91 Blood Pressure Mean [Right Arm] Blood Pressure Source [Right Arm] Blood Pressure Position [Right Arm] 02 Sat by Pulse Oximetry 97 93 L 93 L Oxygen Delivery Method Nasal Cannula Nasal Cannula Nasal Cannula Oxygen Flow Rate (LPM) 02/08/21 13:30 02/08/21 14:00 02/08/21 14:30 Temperature Temperature Source Pulse Rate 109 H 108 H 105 H Pulse Rate [Right] Respiratory Rate 15 16 18 Blood Pressure 123/78 116/81 116/88 Blood Pressure [Right Arm] Blood Pressure Mean 84 92 94 Blood Pressure Mean [Right Arm] Blood Pressure Source [Right Arm] Blood Pressure Position [Right Arm] 02 Sat by Pulse Oximetry 95 96 96 Oxygen Delivery Method Nasal Cannula Nasal Cannula Oxygen Flow Rate (LPM) 02/08/21 15:00 02/08/21 15:31 02/08/21 16:00 Temperature Temperature Source Pulse Rate 104 H 107 H 108 H Pulse Rate [Right] Respiratory Rate 18 17 16 Blood Pressure 112/78 118/91 H 112/86 Blood Pressure [Right Arm] Blood Pressure Mean 87 100 92 Blood Pressure Mean [Right Arm] Blood Pressure Source [Right Arm] Blood Pressure Position [Right Arm] 02 Sat by Pulse Oximetry 97 96 96 Oxygen Delivery Method Nasal Cannula Nasal Cannula Oxygen Flow Rate (LPM) - Lab Data Lab Results 02/08/21 11:00: WBC 17.0 H, RBC 4.55 L, Hgb 14.5, Hct 47.6, MCV 104.6 H, MCH 31.9 H, MCHC 30.5 L, RDW 14.8, Plt Count 382, MPV 8.4, Neut % (Auto) 81.0 H, Lymph % (Auto) 11.6, [place] % (Auto) 5.7, Eos % (Auto) 0.9, Baso % (Auto) 0.9, Neut # (Auto) 13.8 H, Lymph # (Auto) 2.0, [place] # (Auto) 1.0, Eos # (Auto) 0.2, Baso # (Auto) 0.2, Total Counted 100, Neutrophils % (Manual) 84 H, Lymphocytes % (Manual) 13, Monocytes % (Manual) 3, Platelet Estimate Normal, Macrocytosis 1+ 02/08/21 11:00: Sodium 149 H, Potassium 5.1, Chloride 107, Carbon Dioxide 29, Anion Gap 18.1 H, BUN 77 H, Creatinine 2.80 H, Estimated Creat Clear 33, Estimated GFR 23 L, Est GFR ( Amer) 28 L, Glucose 187 H, Calcium 10.0, Total Bilirubin 0.8, AST 57, ALT 41, Alkaline Phosphatase 101, Troponin I 0.01, Total Protein 8.9 H, Albumin 4.8, Globulin 4.1 H, Albumin/
[2021-02-08 11:20] LABS: Coronavirus 19, PCR Not Detected (NotDetected); Influenza A, PCR Not Detected (NotDetected); Influenza B, PCR Not Detected (NotDetected)
[2021-02-08 11:30] LABS: Chloride 107 mmol/L (98-107); Potassium 5.1 mmoL/L (3.5-5.1); Sodium 149 mmol/L (136-145)
[2021-02-08 11:32] LABS: Microscopic, Urine URINE MICROSCOPIC (MICROSCOPIC)
[2021-02-08 11:32] LABS: Blood Urea Nitrogen 77 mg/dl (9-20); Creatinine Clearance Estimated 33 mL/min (50-200); Estimated Glomerular Filt Rate 23 ml/min (>60); GFR (African American) 28 ML/MIN (>60)
[2021-02-08 11:33] LABS: Appearance,Urine CLEAR (Clear); Blood, Urine TRACE-L (Negative); Color,Urine YELLOW (Yellow); Glucose,Urine (UA) Negative (Negative); Ketones,Urine Negative (Negative); Leukocyte Esterase,Urine 1+ (Negative); Nitrate,Urine Negative (Negative); PH,Urine 5.5 (5.0-8.5); Protein,Urine Negative (Negative); Specific Gravity, Urine >= 1.030 (1.005-1.030); Urobilinogen,Urine 0.2 EU/dl (0.2)
[2021-02-08 11:33] LABS: Alanine Aminotransferase 41 U/L (12-78); Albumin Level 4.8 g/dl (3.5-5.0); Albumin/Globulin Ratio 1.2 (1.1-1.8); Alkaline Phosphatase 101 U/L (38-126); Anion Gap 18.1 mEq/L (5-15); Aspartate Amino Transferase 57 U/L (17-59); Bilirubin,Total 0.8 mg/dl (0.2-1.3); Carbon Dioxide 29 mmol/L (22.0-30.0); Globulin 4.1 g/dL (1.3-3.2); Glucose 187 mg/dl (74-100); Total Protein,Serum 8.9 g/dl (6.3-8.2)
[2021-02-08 11:41] LABS: Basophils # 0.2 K/mm3 (0-0.2); Basophils % 0.9 % (0.1-2.0); Eosinophils # 0.2 K/mm3 (0.0-0.4); Eosinophils % 0.9 % (0.1-12.0); Hematocrit 47.6 % (42.0-52.0); Hemoglobin 14.5 g/dL (14.1-18.0); Lymphocytes % 11.6 % (10-50); Mean Corpuscular HGB Conc 30.5 g/dL (31.8-35.4); Mean Corpuscular Hemoglobin 31.9 pg (27.0-31.2); Mean Corpuscular Volume 104.6 fl (80-94); Mean Platelet Volume 8.4 fl (7.4-10.4); Monocytes % 5.7 % (1.7-9.3); Neutrophils # 13.8 K/mm3 (1.8-7.8); Platelet Count 382 K/mm3 (142-424); Red Blood Count 4.55 M/mm3 (4.60-6.20); Red Cell Distribution Width 14.8 % (11.5-17.5)
[2021-02-08 11:42] LABS: NT Pro Brain Natriuretic Pep. 432 pg/mL (0-125)
--- NOTE | 2021-02-08 11:43 | CT_ITS ---
PROCEDURE INFORMATION: Exam: CT Abdomen And Pelvis Without Contrast Exam date and time: 02/08/2021 11:43 AM Age: 60 years old Clinical indication: Abdominal pain; Other: Diffuse; Patient HX: Fever, abdo tenderness TECHNIQUE: Imaging protocol: Computed tomography of the abdomen and pelvis without contrast. Radiation optimization: All CT scans at this facility use at least one of these dose optimization techniques: automated exposure control; mA and/or kV adjustment per patient size (includes targeted exams where dose is matched to clinical indication); or iterative reconstruction. COMPARISON: CT ABDOMEN PELVIS WO/W CON 10/19/2020 10:19 AM FINDINGS: Liver: The liver is normal in appearance, without evidence of mass or intrahepatic bile duct dilatation. Gallbladder and bile ducts: The gallbladder is normal appearance, without evidence of gallbladder wall thickening or pericholecystic fluid. Pancreas: The pancreas is normal in appearance, without evidence of mass, cyst, peripancreatic inflammatory change, or pancreatic duct dilatation. Spleen: The spleen is normal in appearance. Adrenal glands: Both adrenal glands are normal in appearance, without evidence of mass or focal abnormality. Kidneys and ureters: There is bilateral renal atrophy. Otherwise, the kidneys are normal in appearance, without evidence of nephrolithiasis or hydronephrosis. Stomach and bowel: The stomach is normal in appearance, without evidence of mass or wall thickening. The small bowel is normal in appearance, without evidence of wall thickening, perienteric inflammatory change, or small bowel obstruction. There are several diverticula in the sigmoid colon. There is no evidence of diverticulitis. Appendix: No evidence of appendicitis. Intraperitoneal space: Unremarkable. No free air. No significant fluid collection. Vasculature: Unremarkable. No abdominal aortic aneurysm. Lymph nodes: Unremarkable. No enlarged lymph nodes. Urinary bladder: The urinary bladder is nondistended. There is a Stephens catheter in place. Reproductive: Unremarkable as visualized. Bones/joints: Unremarkable. No acute fracture. Soft tissues: Unremarkable. IMPRESSION: 1. No acute findings. 2. Diverticulosis, without evidence of acute diverticulitis.
--- NOTE | 2021-02-08 11:44 | CT_ITS ---
PROCEDURE INFORMATION: Exam: CT Head Without Contrast Exam date and time: 02/08/2021 11:44 AM Age: 60 years old Clinical indication: Altered mental status/memory loss. TECHNIQUE: Imaging protocol: Computed tomography of the head without contrast. Radiation optimization: All CT scans at this facility use at least one of these dose optimization techniques: automated exposure control; mA and/or kV adjustment per patient size (includes targeted exams where dose is matched to clinical indication); or iterative reconstruction. COMPARISON: CT HEAD/BRAIN WO CON 02/23/2020 12:11 PM FINDINGS: Brain: There is low attenuation abnormality in the periventricular white matter consistent with chronic microvascular ischemic changes. There are chronic lacunar infarcts. There is moderate cerebral atrophy. Cerebral ventricles: There is ventriculomegaly, similar to prior study. Paranasal sinuses: Visualized sinuses are unremarkable. No fluid levels. Mastoid air cells: Visualized mastoid air cells are well aerated. Bones/joints: Unremarkable. No acute fracture. Soft tissues: Unremarkable. IMPRESSION: 1. There is low attenuation abnormality in the periventricular white matter consistent with chronic microvascular ischemic changes. If an acute infarct is a clinical concern, follow-up MRI with diffusion imaging is recommended. 2. There are chronic lacunar infarcts. 3. There is ventriculomegaly, similar to prior study. Please correlate with any clinical symptoms of normal pressure hydrocephalus. 4. There is moderate cerebral atrophy.
[2021-02-08 11:45] LABS: MANUAL DIFFERENTIAL MANUAL DIFFERENTIAL (MANUAL DIFF)
[2021-02-08 11:49] LABS: Bilirubin,Urine 1+ (Negative)
[2021-02-08 11:50] LABS: Amorphous Sediment,Urine 1+ /lpf; Bacteria,Urine 1+ /lpf
[2021-02-08 11:56] LABS: Troponin I 0.01 ng/ml (0.00-0.034)
--- NOTE | 2021-02-08 12:06 | PC.NURSE ---
Pt to CT
[2021-02-08 12:08] LABS: Lymphocytes % 13 % (10-50); Macrocytosis 1+; Monocytes % 3 % (2-9); Neutrophils % 84 % (42-76); Total Cells Counted 100
[2021-02-08 12:09] LABS: Platelet Estimate Normal
--- NOTE | 2021-02-08 12:22 | PC.NURSE ---
Pt returned from CT
--- NOTE | 2021-02-08 12:34 | PC.NURSE ---
Rectal temp 101.3, reported to MD and pt medicated with tylenol supp. PT repositioned at this time also, heavy blankets removed and sheet placed on pt.
--- NOTE | 2021-02-08 12:36 | PC.NURSE ---
Notified resp of ABG
[2021-02-08 13:14] LABS: ABG Base Excess -3.6 mmol/L (-2.4-2.3); ABG HCO3 20.8 mmhg (22.0-26.0); ABG Oxygen Saturation 98 % (90-100); ABG PCO2 35.7 mmhg (35.0-45.0); ABG PH 7.38 mmol/L (7.35-7.45); ABG PO2 118.6 mmhg (80-100); ABG TCO2 21.9 mmhg (23-27); Allen's Test acceptable; Oxygen 3 lpm %
[2021-02-08 13:15] LABS: Source Right Radial
--- NOTE | 2021-02-08 13:17 | PC.NURSE ---
on the phone with Jey
--- NOTE | 2021-02-08 13:24 | CT_ITS ---
PROCEDURE INFORMATION: Exam: CT Chest Without Contrast; Diagnostic Exam date and time: 02/08/2021 1:24 PM Age: 60 years old Clinical indication: Patient HX: Fever, R/O pneumonia TECHNIQUE: Imaging protocol: Diagnostic computed tomography of the chest without contrast. Radiation optimization: All CT scans at this facility use at least one of these dose optimization techniques: automated exposure control; mA and/or kV adjustment per patient size (includes targeted exams where dose is matched to clinical indication); or iterative reconstruction. COMPARISON: CT CHEST WO CON 02/25/2020 9:41 AM FINDINGS: Lungs: Interstitial prominence, chronic granulomatous disease, and stable 2 mm noncalcified left lower lobe nodule. For patients at low risk (minimal or absent history of smoking and of other known risk factors), no routine follow-up is indicated. For patients at high risk (history of smoking or of other known risk factors), consider optional CT Chest at 12 months. (Reference: [facility]). Mild asymmetric lower lobe airspace disease, right greater than left. Pleural spaces: No pleural effusion. Heart: Coronary artery calcification. Aorta: Ectasia of the thoracic aorta. Lymph nodes: No pathologically enlarged lymph nodes. Diaphragm: Hypoinflation with asymmetric elevation of the right hemidiaphragm. Small hiatal hernia. Upper abdomen: Fatty infiltration of the liver. High attenuation bile in the gallbladder. Splenic granulomata. Questionable wall thickening in the nondistended stomach. Bones/joints: Osteopenia with chronic thoracic spine compression fractures. Degenerative change. Stable 13 x 9 mm periarticular calcification in the left shoulder. Soft tissues: Prominent mediastinal and epicardial fat. Gynecomastia. IMPRESSION: 1. Interstitial prominence , chronic granulomatous disease, and mild asymmetric lower lobe airspace disease. 2. Additional findings as described above.
--- NOTE | 2021-02-08 13:32 | PC.NURSE ---
spoke with Dr. Velasco. Going to obtain chest CT at this time
--- NOTE | 2021-02-08 13:41 | PC.NURSE ---
Pt to CT
[2021-02-08 15:02] LABS: Troponin I 0.01 ng/ml (0.00-0.034)
--- NOTE | 2021-02-08 15:56 | PC.NURSE ---
message left for DR Velasco to call back
--- NOTE | 2021-02-08 16:06 | PC.NURSE ---
Notified house of admission
--- NOTE | 2021-02-08 16:14 | HMH.PHACONS ---
- Pharmacy Consult Date: 02/08/21 Time: 16:15 Referring provider: DR. IRENE Reason for Consult:: VANCOMYCIN DOSING Allergies and ADEs:: Allergies Allergy/AdvReac Type Severity Reaction Status Date / Time morphine [MORPHINE] Allergy Mild HURTS Verified 01/25/21 14:16 STOMACH nitroglycerin Allergy Mild Nausea Verified 01/25/21 14:16 Home Medications:: Home Medications Medication Instructions Recorded Confirmed Type atorvastatin 40 mg tablet 40 mg PO HS 03/24/17 02/08/21 History docusate sodium 250 mg capsule 250 mg PO DAILYP PRN 03/24/17 02/08/21 History furosemide 80 mg tablet 80 mg PO BID tab 03/24/17 02/08/21 History loratadine 10 mg tablet 10 mg PO DAILY 03/24/17 02/08/21 History isosorbide mononitrate 30 mg 30 mg PO DAILY 04/11/17 02/08/21 History tablet,extended release 24 hr folic acid 0.8 mg capsule 0.8 mg PO DAILY 09/30/17 02/08/21 History magnesium oxide 400 mg PO HS cap 09/30/17 02/08/21 History spironolactone 50 mg tablet 50 mg PO BID tab 09/30/17 02/08/21 History Acetaminophen 500 mg PO Q4HP PRN 11/10/17 02/08/21 History Omeprazole [Omeprazole 20mg 20 mg PO Q48H 11/10/17 02/08/21 History Capsule] Cyanocobalamin (Vitamin B-12) 750 mcg PO DAILY 11/11/17 02/08/21 History [Vitamin B-12] Levothyroxine Sodium 50 mcg PO DAILY 11/11/17 02/08/21 History [Levothyroxine 50mcg (0.05mg) Tab] Potassium Chloride [Klor-con 20 40 meq PO BID 11/11/17 02/08/21 History mEq tablet] losartan 25 mg tablet 12.5 mg PO DAILY tab 09/29/18 02/08/21 History Bisacodyl [Bisacodyl 10mg Supp] 10 mg RC DAILYP PRN 11/17/18 02/08/21 History Lactulose [Lactulose 10gm/15ml 20 gm PO DAILYP PRN 11/17/18 02/08/21 History Oral Soln] Mag Carb/Aluminum Hydrox/Algin 30 ml PO Q4HP PRN 11/17/18 02/08/21 History [Acid Gone Antacid Liquid] Multivitamin,Ther and Minerals 1 each PO DAILY 11/17/18 02/08/21 History [Vitamin and Minerals] Duloxetine HCl 120 mg PO DAILY 11/18/18 02/08/21 History Sennosides [Senna] 8.6 mg PO BID 01/24/19 02/08/21 History Aspirin [Aspirin 81mg chewable 81 mg PO DAILY 01/25/19 02/08/21 History tab] Loperamide HCl [Anti-Diarrheal] 2 mg PO Q4HP PRN 01/25/19 02/08/21 History Olopatadine HCl 1 drp OU BID 02/24/20 02/08/21 History Trazodone HCl 100 mg PO HS 02/24/20 02/08/21 History Linagliptin [Tradjenta 5mg tablet] 5 mg PO DAILY 04/07/20 02/08/21 History tamsulosin 0.4 mg capsule 0.4 mg PO DAILY 04/24/20 02/08/21 History albuterol sulfate 90 mcg/actuation 1 inh INHALATION QID PRN #8.5 g 06/20/20 02/08/21 Rx aerosol inhaler Tiotropium [place] [Spiriva 2 puff INHALATION DAILY 10/12/20 02/08/21 History Respimat] metformin 500 mg tablet 500 mg PO BID 10/30/20 02/08/21 History gabapentin 100 mg capsule 100 mg PO TID #90 cap 11/24/20 02/08/21 Rx tramadol 50 mg tablet 50 mg PO TID #90 tab 12/01/20 02/08/21 Rx Height: 1.65 m Weight: 86.581 kg Laboratory Results:: Laboratory Results - last 24 hr 02/08/21 11:00: WBC 17.0 H, RBC 4.55 L, Hgb 14.5, Hct 47.6, MCV 104.6 H, MCH 31.9 H, MCHC 30.5 L, RDW 14.8, Plt Count 382, MPV 8.4, Neut % (Auto) 81.0 H, Lymph % (Auto) 11.6, [place] % (Auto) 5.7, Eos % (Auto) 0.9, Baso % (Auto) 0.9, Neut # (Auto) 13.8 H, Lymph # (Auto) 2.0, [place] # (Auto) 1.0, Eos # (Auto) 0.2, Baso # (Auto) 0.2, Total Counted 100, Neutrophils % (Manual) 84 H, Lymphocytes % (Manual) 13, Monocytes % (Manual) 3, Platelet Estimate Normal, Macrocytosis 1+ 02/08/21 11:00: Sodium 149 H, Potassium 5.1, Chloride 107, Carbon Dioxide 29, Anion Gap 18.1 H, BUN 77 H, Creatinine 2.80 H, Estimated Creat Clear 33, Estimated GFR 23 L, Est GFR ( Amer) 28 L, Glucose 187 H, Calcium 10.0, Total Bilirubin 0.8, AST 57, ALT 41, Alkaline Phosphatase 101, Troponin I 0.01, Total Protein 8.9 H, Albumin 4.8, Globulin 4.1 H, Albumin/Globulin Ratio 1.2 02/08/21 11:00: Lactate 1.0 02/08/21 11:00: SARS-CoV-2 (PCR) Not detected, Influenza A Untype (PCR) Not detected, Influenza Type B (PCR) Not detected
--- NOTE | 2021-02-08 16:36 | PC.NURSE ---
Called report to Katherine Walter RN
--- NOTE | 2021-02-08 16:45 | PC.NURSE ---
Fluids boluses not given per MD orders. Pt has not been hypotenisve.
--- NOTE | 2021-02-08 17:35 | PC.NURSE ---
pt arrived to the floor at this time
[2021-02-08 17:44] LABS: Troponin I < 0.01 ng/ml (0.00-0.034)
--- NOTE | 2021-02-08 18:00 | PC.WOUNDNOTE ---
Stage II noted to coccyx Rash noted to right side of back
[2021-02-08 18:31] LABS: POC Glucose,Bedside 152 (70-110)
--- NOTE | 2021-02-08 19:27 | PC.NURSE ---
PT IS RESTING IN BED. PT HAS NOT BEEN COHERENT SINCE ARRIVING TO THE FLOOR. PT WILL OPEN HIS EYES AND GIVE DIRECT EYE CONTACT BUT HAS NOT BEEN ANSWERING ANY QUESTIONS. RESPONSIVE TO PAIN. LUNG SOUNDS HAVE SCATTERED RHONCHI. ABDOMEN SOFT/NON TENDER WITH ACTIVE BOWEL SOUNDS. ORDERS GIVEN FROM TO HOLD DIURETICS THIS EVENING AND IF PT IS UNABLE TO TAKE PO MEDS HIS TYLENOL CAN BE ADMINISTERED RECTALLY FOR FEVER. REPORT HAND OFF TO FAITH SHORT RN.
--- NOTE | 2021-02-08 20:03 | HMH.HP ---
*Admission Date: 02/08/21 *Chief complaint: fever and pneumonia *History of present illness: Patient is a 60-year-old male, [facility] resident, knitted through the emergency room earlier today staff noted fever and altered mental status. Patient's work-up in the ER was as follows - Radiology Data #1 Image(s): Chest Image Reviewed: Yes I reviewed the patient's radiology image, Yes I have reviewed radiologist's interpretation PROCEDURE INFORMATION: Exam: XR Chest Exam date and time: 02/08/2021 10:51 AM Age: 60 years old Clinical indication: Other: AMS, weakness TECHNIQUE: Imaging protocol: XR of the chest. Views: 1 view. COMPARISON: CR XR CHEST PORTABLE 06/01/2020 11:49 AM FINDINGS: Lungs: Unremarkable. No consolidation. Pleural spaces: Unremarkable. No pleural effusion. No pneumothorax. Heart/Mediastinum: The heart is enlarged. Bones/joints: Unremarkable. IMPRESSION: 1. No acute findings. 2. Cardiomegaly. - CT Data CT Scan: Head, Abdomen, Pelvis Time Received: 13:[address] Reviewed: Yes: I have viewed the radiologist's interpretation Findings Narrative: PROCEDURE INFORMATION: Exam: CT Head Without Contrast Exam date and time: 02/08/2021 11:44 AM Age: 60 years old Clinical indication: Altered mental status/memory loss. TECHNIQUE: Imaging protocol: Computed tomography of the head without contrast. Radiation optimization: All CT scans at this facility use at least one of these dose optimization techniques: automated exposure control; mA and/or kV adjustment per patient size (includes targeted exams where dose is matched to clinical indication); or iterative reconstruction. COMPARISON: CT HEAD/BRAIN WO CON 02/23/2020 12:11 PM FINDINGS: Brain: There is low attenuation abnormality in the periventricular white matter consistent with chronic microvascular ischemic changes. There are chronic lacunar infarcts. There is moderate cerebral atrophy. Cerebral ventricles: There is ventriculomegaly, similar to prior study. Paranasal sinuses: Visualized sinuses are unremarkable. No fluid levels. Mastoid air cells: Visualized mastoid air cells are well aerated. Bones/joints: Unremarkable. No acute fracture. Soft tissues: Unremarkable. IMPRESSION: 1. There is low attenuation abnormality in the periventricular white matter consistent with chronic microvascular ischemic changes. If an acute infarct is a clinical concern, follow-up MRI with diffusion imaging is recommended. 2. There are chronic lacunar infarcts. 3. There is ventriculomegaly, similar to prior study. Please correlate with any clinical symptoms of normal pressure hydrocephalus. 4. There is moderate cerebral atrophy. Exam: CT Abdomen And Pelvis Without Contrast Exam date and time: 02/08/2021 11:43 AM COMPARISON: CT ABDOMEN PELVIS WO/W CON 10/19/2020 10:19 AM FINDINGS: Liver: The liver is normal in appearance, without evidence of mass or intrahepatic bile duct dilatation. Gallbladder and bile ducts: The gallbladder is normal appearance, without evidence of gallbladder wall thickening or pericholecystic fluid. Pancreas: The pancreas is normal in appearance, without evidence of mass, cyst, peripancreatic inflammatory change, or pancreatic duct dilatation. Spleen: The spleen is normal in appearance. Adrenal glands: Both adrenal glands are normal in appearance, without evidence of mass or focal abnormality. Kidneys and ureters: There is bilateral renal atrophy. Otherwise, the kidneys are normal in appearance, without evidence of nephrolithiasis or hydronephrosis. Stomach and bowel: The stomach is normal in appearance, without evidence of mass or wall thickening. The small bowel is normal in appearance, without evidence of wall thickening, perienteric inflammatory change, or small bowel ob
[2021-02-08 20:35] LABS: ABG Base Excess -2.8 mmol/L (-2.4-2.3); ABG Oxygen Saturation 98 % (90-100); ABG PCO2 36.4 mmhg (35.0-45.0); ABG PO2 96.1 mmhg (80-100); ABG TCO2 23.1 mmhg (23-27)
[2021-02-08 20:36] LABS: Allen's Test Acceptable; Oxygen 2 lpm %; Source Right Radial
[2021-02-08 21:31] LABS: Magnesium 3.6 mg/dl (1.6-2.3)
[2021-02-08 22:31] LABS: POC Glucose,Bedside 161 (70-110)
[2021-02-09] VITALS (10 sets, daily range): BP systolic 101–117; BP diastolic 61–71; PULSE 66–106; RESP 16–24; TEMP 37.5–38.5; O2SAT 92–98; BMI 28.3
--- NOTE | 2021-02-09 06:00 | XR_ITS ---
PROCEDURE INFORMATION: Exam: XR Chest Exam date and time: 02/09/2021 6:00 AM Age: 60 years old Clinical indication: Condition or disease; Lung condition and disease; Pneumonia TECHNIQUE: Imaging protocol: XR of the chest. Views: 1 view. COMPARISON: CT CHEST WO CON 02/08/2021 1:39 PM FINDINGS: Lungs: Unremarkable. No consolidation. Pleural spaces: Unremarkable. No pleural effusion. No pneumothorax. Heart/Mediastinum: Unremarkable. No cardiomegaly. Bones/joints: Unremarkable. IMPRESSION: No acute findings.
[2021-02-09 06:10] LABS: Basophils # 0.2 K/mm3 (0-0.2); Basophils % 0.8 % (0.1-2.0); Chloride 113 mmol/L (98-107); Eosinophils # 0.4 K/mm3 (0.0-0.4); Eosinophils % 1.8 % (0.1-12.0); Hematocrit 43.3 % (42.0-52.0); Lymphocytes # 2.1 K/mm3 (0.7-4.5); Lymphocytes % 9.9 % (10-50); Mean Corpuscular Hemoglobin 32.1 pg (27.0-31.2); Mean Platelet Volume 8.9 fl (7.4-10.4); Monocytes # 1.4 K/mm3 (0.1-1.0); Monocytes % 6.2 % (1.7-9.3); Neutrophils # 17.6 K/mm3 (1.8-7.8); Neutrophils % 81.3 % (37.0-80.0); Platelet Count 331 K/mm3 (142-424); Red Blood Count 4.04 M/mm3 (4.60-6.20); Red Cell Distribution Width 14.9 % (11.5-17.5); White Blood Count 21.7 K/mm3 (4.8-10.8)
[2021-02-09 06:11] LABS: Potassium 4.2 mmoL/L (3.5-5.1)
[2021-02-09 06:13] LABS: Blood Urea Nitrogen 75 mg/dl (9-20); Creatinine Clearance Estimated 38 mL/min (50-200); Estimated Glomerular Filt Rate 30 ml/min (>60); GFR (African American) 37 ML/MIN (>60)
[2021-02-09 06:14] LABS: Anion Gap 17.2 mEq/L (5-15); Carbon Dioxide 25 mmol/L (22.0-30.0); Glucose 163 mg/dl (74-100)
[2021-02-09 06:35] LABS: POC Glucose,Bedside 140 (70-110)
[2021-02-09 06:42] LABS: MANUAL DIFFERENTIAL MANUAL DIFFERENTIAL (MANUAL DIFF)
[2021-02-09 06:43] LABS: Thyroid Stimulating Hormone 1.08 uIU/mL (0.465-4.68)
[2021-02-09 06:51] LABS: Sodium 151 mmol/L (136-145)
[2021-02-09 07:19] LABS: Eosinophils % 2 % (0-3); Lymphocytes % 12 % (10-50); Monocytes % 5 % (2-9); Neutrophils % 81 % (42-76); Platelet Estimate Normal; Total Cells Counted 100
[2021-02-09 07:20] LABS: Hypochromasia 2+; Macrocytosis 2+
--- NOTE | 2021-02-09 07:49 | PC.NURSE ---
0654am sodium level called to Dr. Rubio with no new orders noted at this time repeated and verified.
--- NOTE | 2021-02-09 08:25 | PC.NURSE ---
pt unable to follow commands PO meds cannot be administered at this time.
--- NOTE | 2021-02-09 08:28 | HMH.PHAVTE ---
[facility] Pharmacy VTE Monitoring - Patient Demographics Admission date: 02/09/21 Report Date: 02/09/21 Time: 08:28 Allergies/Adverse Reactions: Patient Allergies morphine [MORPHINE] Allergy (Mild, Verified 01/25/21 14:16) HURTS STOMACH nitroglycerin Allergy (Mild, Verified 01/25/21 14:16) Nausea Height: 1.65 m Weight: 77.111 kg Patient Problems: Current Active Problems Altered mental status (Acute) Healthcare-associated pneumonia (Acute) Sepsis (Acute) Delirium (Acute) TAURUS (acute kidney injury) (Acute) Pneumonia (Acute) Hypertension with goal to be determined (Chronic) Extreme obesity (Chronic) Post-traumatic subdural hematoma (Chronic) Renal insufficiency (Chronic) HTN (hypertension) (Chronic) HLD (hyperlipidemia) (Chronic) HHD (hypertensive heart disease) (Chronic) CAD (coronary artery disease) (Chronic) Hypothyroidism, unspecified (Chronic) Muscle weakness (generalized) (Chronic) - VTE Risk Labs: VTE Related Lab Results Hgb 13.0 g/dL (14.1-18.0) L D 02/09/21 05:34 Hct 43.3 % (42.0-52.0) 02/09/21 05:34 Plt Count 331 K/mm3 (142-424) 02/09/21 05:34 BUN 75 mg/dl (9-20) H 02/09/21 05:34 Creatinine 2.20 mg/dl (0.66-1.25) H D 02/09/21 05:34 Estimated Creat Clear 38 mL/min (50-200) 02/09/21 05:34 Was VTE Risk Assessment Performed: Yes VTE Score: 6 VTE Risk Level: Moderate Risk Clinical Trial Participant: No - Prophylaxis VTE Prophylaxis Ordered?: Yes Types of VTE Prophylaxis: TEDS Knee High Location of Applied Device: Not Applicable
--- NOTE | 2021-02-09 09:15 | HMH.ACPN2 ---
Internal Medicine - PN: Subj *Date: 02/10/21 *Time: 06:38 Interval history: doing better - more alert - labs better Exam Vital signs and Labs for Last 24 Hours: Temp Pulse Resp BP Pulse Ox 99.5 F 101 H 17 105/62 L 94 L 02/09/21 08:00 02/09/21 08:00 02/09/21 08:00 02/09/21 08:00 02/09/21 08:00 Laboratory Results - last 24 hr 02/08/21 11:00: WBC 17.0 H, RBC 4.55 L, Hgb 14.5, Hct 47.6, MCV 104.6 H, MCH 31.9 H, MCHC 30.5 L, RDW 14.8, Plt Count 382, MPV 8.4, Neut % (Auto) 81.0 H, Lymph % (Auto) 11.6, [place] % (Auto) 5.7, Eos % (Auto) 0.9, Baso % (Auto) 0.9, Neut # (Auto) 13.8 H, Lymph # (Auto) 2.0, [place] # (Auto) 1.0, Eos # (Auto) 0.2, Baso # (Auto) 0.2, Total Counted 100, Neutrophils % (Manual) 84 H, Lymphocytes % (Manual) 13, Monocytes % (Manual) 3, Platelet Estimate Normal, Macrocytosis 1+ 02/08/21 11:00: Sodium 149 H, Potassium 5.1, Chloride 107, Carbon Dioxide 29, Anion Gap 18.1 H, BUN 77 H, Creatinine 2.80 H, Estimated Creat Clear 33, Estimated GFR 23 L, Est GFR ( Amer) 28 L, Glucose 187 H, Calcium 10.0, Total Bilirubin 0.8, AST 57, ALT 41, Alkaline Phosphatase 101, Troponin I 0.01, Total Protein 8.9 H, Albumin 4.8, Globulin 4.1 H, Albumin/Globulin Ratio 1.2 02/08/21 11:00: Lactate 1.0 02/08/21 11:00: SARS-CoV-2 (PCR) Not detected, Influenza A Untype (PCR) Not detected, Influenza Type B (PCR) Not detected 02/08/21 11:00: NT-Pro-B Natriuret Pep 432 H 02/08/21 11:25: Urine Color Yellow, Urine Appearance Clear, Urine pH 5.5, Ur Specific [place] >= 1.030, Urine Protein Negative, Urine Glucose (UA) Negative, Urine Ketones Negative, Urine Blood Trace-l, Urine Nitrate Negative, Urine Bilirubin 1+ A, Urine Urobilinogen 0.2, Ur Leukocyte Esterase 1+ A, Urine RBC 3-5, Urine WBC 3-5, Ur Squamous Epith Cells 5-10, Amorphous Sediment 1+, Urine Bacteria 1+ 02/08/21 12:35: Specimen Source Right radial, O2 % 3 lpm, ABG pH 7.38, ABG pCO2 35.7, ABG pO2 118.6 H, ABG HCO3 20.8 L, ABG Total CO2 21.9 L, ABG O2 Saturation 98, ABG Base Excess -3.6 L, [place] Test acceptable 02/08/21 14:00: Troponin I 0.01 02/08/21 16:47: Troponin I < 0.01 02/08/21 18:24: POC Glucose 152 H 02/08/21 20:16: Specimen Source Right radial, O2 % 2 lpm, ABG pH 7.40, ABG pCO2 36.4, ABG pO2 96.1, ABG HCO3 22.0, ABG Total CO2 23.1, ABG O2 Saturation 98, ABG Base Excess -2.8 L, [place] Test Acceptable 02/08/21 21:10: Magnesium 3.6 H 02/08/21 22:04: POC Glucose 161 H 02/09/21 05:34: WBC 21.7 H* D, RBC 4.04 L, Hgb 13.0 L D, Hct 43.3, MCV 107.0 H, MCH 32.1 H, MCHC 30.0 L, RDW 14.9, Plt Count 331, MPV 8.9, Neut % (Auto) 81.3 H, Lymph % (Auto) 9.9 L, [place] % (Auto) 6.2, Eos % (Auto) 1.8, Baso % (Auto) 0.8, Neut # (Auto) 17.6 H, Lymph # (Auto) 2.1, [place] # (Auto) 1.4 H, Eos # (Auto) 0.4, Baso # (Auto) 0.2, Total Counted 100, Neutrophils % (Manual) 81 H, Lymphocytes % (Manual) 12, Monocytes % (Manual) 5, Eosinophils % (Manual) 2, Platelet Estimate Normal, RBC Morphology Not Reportable, Hypochromasia 2+, Macrocytosis 2+ 02/09/21 05:34: Sodium 151 H*, Potassium 4.2, Chloride 113 H, Carbon Dioxide 25, Anion Gap 17.2 H, BUN 75 H, Creatinine 2.20 H D, Estimated Creat Clear 38, Estimated GFR 30 L, Est GFR ( Amer) 37 L D, Glucose 163 H, Calcium 9.0, TSH 1.08 02/09/21 06:16: POC Glucose 140 H I & O for Last 24 hours: Intake & Output 02/06/21 02/07/21 02/08/21 02/09/21 11:59 11:59 11:59 11:59 Intake Total 1477 / 1477 Output Total 775 / 775 Balance 702 / 702 Weight 190 lb 14.052 oz 170 lb - Constitutional no acute distress - *Routine HEENT Exam Head: Present: normocephalic Eye: Present: EOMI, PERRL ENT: Present: mucous membranes dry - *Routine Neck Exam Absent: JVD - *Routine Respiratory Exam Present: decreased breath sounds - *Routine Cardiovascular Exam Present: RRR - *Routine Abdominal Exam Present: soft - *Routine Extremities Exam Absent: calf tenderness - *Routine Skin Exam Present: intact - *Routine Neurological Exam Present: altered mental sta
--- NOTE | 2021-02-09 10:38 | SW/DCPLANNER ---
This patient currently resides at [facility]. I spoke with Alena from [place] this AM to confirm that patient is [facility] level of care. Discharge date is unknown at this time.
[2021-02-09 12:57] LABS: POC Glucose,Bedside 199 (70-110)
--- NOTE | 2021-02-09 17:59 | PC.NURSE ---
pt has remained non-verbal t/o shift, he has opened his eyes and traced movement t/o the room. still requires 2lnc for o2 support.he was not able to take PO medications this shift.
[2021-02-09 20:05] LABS: POC Glucose,Bedside 164 (70-110)
--- NOTE | 2021-02-09 20:23 | PC.NURSE ---
pt will open eyes when calls name but little to no verbal response, po meds held due to lethargy and pt noted with difficulty swallowing when using wet mouth swabs for mouth care, insulin held for fsbs 153 at 2100 due to pt not eating anything at this time. will continue to monitor
[2021-02-10] VITALS (9 sets, daily range): BP systolic 103–135; BP diastolic 57–71; PULSE 84–99; RESP 18–25; TEMP 36.9–38.2; O2SAT 93–98; BMI 29.2
[2021-02-10 00:24] LABS: POC Glucose,Bedside 153 (70-110)
--- NOTE | 2021-02-10 06:49 | PC.NURSE ---
Pt seems more alert this morning, pt has yelled out few times and when approaching pt he will look at you and acknowledge his name, will continue to monitor, rash on backside appears better, bottom still with pressure dressing and some redness noted, f/c patent to bsd, no other issues or concerns noted, VSS
[2021-02-10 06:54] LABS: POC Glucose,Bedside 180 (70-110)
--- NOTE | 2021-02-10 07:25 | HMH.ACPN2 ---
Internal Medicine - PN: Subj *Date: 02/11/21 *Time: 04:37 Interval history: more alert and no focal changes - labs pending Exam Vital signs and Labs for Last 24 Hours: Temp Pulse Resp BP Pulse Ox 99.2 F 99 H 20 135/69 98 02/10/21 04:00 02/10/21 06:37 02/10/21 04:00 02/10/21 04:00 02/10/21 06:37 Laboratory Results - last 24 hr 02/09/21 12:00: POC Glucose 199 H 02/09/21 16:39: POC Glucose 164 H 02/09/21 20:17: POC Glucose 153 H 02/10/21 06:28: POC Glucose 180 H I & O for Last 24 hours: Intake & Output 02/07/21 02/08/21 02/09/21 02/10/21 11:59 11:59 11:59 11:59 Intake Total 1477 / 1477 60 / 60 Output Total 775 / 775 1000 / 1000 Balance 702 / 702 -940 / -940 Weight 190 lb 14.052 oz 169 lb 12.095 oz 175 lb 4 oz Microbiology Reports for the Last 24 Hours: Microbiology 02/08/21 11:25 Urine,Catheterized Urine Culture - Preliminary NO GROWTH AFTER 24 HOURS - Constitutional no acute distress - *Routine HEENT Exam Head: Present: normocephalic Eye: Present: EOMI, PERRL ENT: Present: mucous membranes dry - *Routine Neck Exam Absent: JVD - *Routine Respiratory Exam Present: decreased breath sounds - *Routine Cardiovascular Exam Present: RRR, murmur - *Routine Abdominal Exam Present: soft - *Routine Extremities Exam Absent: calf tenderness - *Routine Skin Exam Present: intact - *Routine Neurological Exam Present: altered mental status more alert but no focal changes - Routine Psychiatric Exam Present: unable to assess Assessment and Plan (1) TAURUS (acute kidney injury) Status: Acute Category: Medical Code(s): N17.9 - Acute kidney failure, unspecified (2) Healthcare-associated pneumonia Status: Acute Category: Medical Code(s): J18.9 - Pneumonia, unspecified organism (3) Sepsis Status: Acute Qualifiers: Sepsis type: sepsis due to unspecified organism Sepsis acute organ dysfunction status: with acute organ dysfunction Severe sepsis acute organ dysfunction type: acute renal failure Acute renal failure type: unspecified Severe sepsis shock status: without septic shock Qualified Code(s): A41.9 - Sepsis, unspecified organism; R65.20 - Severe sepsis without septic shock; N17.9 - Acute kidney failure, unspecified Category: Medical Code(s): A41.9 - Sepsis, unspecified organism (4) Altered mental status Status: Acute Qualifiers: Altered mental status type: unspecified Qualified Code(s): R41.82 - Altered mental status, unspecified Category: Medical Code(s): R41.82 - Altered mental status, unspecified (5) Pneumonia Status: Acute Qualifiers: Pneumonia type: due to unspecified organism Laterality: unspecified laterality Lung location: unspecified part of lung Qualified Code(s): J18.9 - Pneumonia, unspecified organism Category: Medical Code(s): J18.9 - Pneumonia, unspecified organism (6) CAD (coronary artery disease) Status: Chronic Qualifiers: Coronary Disease-Associated Artery/Lesion type: [place] artery [place] vs. transplanted heart: [place] heart Associated angina: without angina Qualified Code(s): I25.10 - Atherosclerotic heart disease of [place] coronary artery without angina pectoris Category: Medical Code(s): I25.10 - Atherosclerotic heart disease of [place] coronary artery without angina pectoris (7) Extreme obesity Status: Chronic Category: Medical Code(s): E66.8 - Other obesity (8) HHD (hypertensive heart disease) Status: Chronic Qualifiers: Heart failure presence: without heart failure Qualified Code(s): I11.9 - Hypertensive heart disease without heart failure Category: Medical Code(s): I11.9 - Hypertensive heart disease without heart failure (9) HLD (hyperlipidemia) Status: Chronic Qualifiers: Hyperlipidemia type: mixed hyperlipidemia Qualified Code(s): E78.2 - Mixed hyperlipidemia Category: M
[2021-02-10 08:17] LABS: Basophils # 0.2 K/mm3 (0-0.2); Basophils % 1.2 % (0.1-2.0); Eosinophils # 0.5 K/mm3 (0.0-0.4); Eosinophils % 2.7 % (0.1-12.0); Hematocrit 40.8 % (42.0-52.0); Hemoglobin 12.1 g/dL (14.1-18.0); Lymphocytes % 11.7 % (10-50); Mean Corpuscular HGB Conc 29.6 g/dL (31.8-35.4); Mean Corpuscular Hemoglobin 32.4 pg (27.0-31.2); Mean Corpuscular Volume 109.5 fl (80-94); Mean Platelet Volume 9.1 fl (7.4-10.4); Monocytes # 0.8 K/mm3 (0.1-1.0); Monocytes % 4.4 % (1.7-9.3); Platelet Count 266 K/mm3 (142-424); Red Blood Count 3.73 M/mm3 (4.60-6.20); Red Cell Distribution Width 14.9 % (11.5-17.5); White Blood Count 17.4 K/mm3 (4.8-10.8)
[2021-02-10 08:24] LABS: MANUAL DIFFERENTIAL MANUAL DIFFERENTIAL (MANUAL DIFF)
[2021-02-10 08:32] LABS: Chloride 119 mmol/L (98-107); Potassium 4.1 mmoL/L (3.5-5.1)
[2021-02-10 08:35] LABS: Anion Gap 17.1 mEq/L (5-15); Blood Urea Nitrogen 59 mg/dl (9-20); Calcium 8.7 mg/dl (8.4-10.2); Carbon Dioxide 20 mmol/L (22.0-30.0); Creatinine Clearance Estimated 57 mL/min (50-200); Estimated Glomerular Filt Rate 47 ml/min (>60); GFR (African American) 57 ML/MIN (>60); Glucose 182 mg/dl (74-100)
[2021-02-10 08:44] LABS: Sodium 152 mmol/L (136-145)
[2021-02-10 11:23] LABS: POC Glucose,Bedside 172 (70-110)
[2021-02-10 11:25] LABS: Eosinophils % 3 % (0-3); Lymphocytes % 11 % (10-50); Monocytes % 5 % (2-9); Neutrophils % 80 % (42-76); Platelet Estimate Normal; Total Cells Counted 100
[2021-02-10 11:26] LABS: Hypochromasia 1+; Macrocytosis 2+
[2021-02-10 16:18] LABS: POC Glucose,Bedside 155 (70-110)
[2021-02-10 20:44] LABS: POC Glucose,Bedside 170 (70-110)
--- NOTE | 2021-02-10 22:01 | PC.NURSE ---
helped turn in bed
--- NOTE | 2021-02-10 23:24 | PC.NURSE ---
Temp is 98.5 F after administration of tylenol supp.
[2021-02-11] VITALS (19 sets, daily range): BP systolic 60–123; BP diastolic 38–70; PULSE 75–94; RESP 16–24; TEMP 36.6–38.2; O2SAT 90–99
[2021-02-11 06:48] LABS: POC Glucose,Bedside 145 (70-110)
--- NOTE | 2021-02-11 07:17 | PC.NURSE ---
Pts temp has been 100.4- 100.8. Medicated per APR. After tylenol temp was 98.5. IV infusing per order. FSBS ACHS. Pt is on RA. Pts speech has become more clear and coherent towards end of my shift. Pt has had good PO fluid intake. Voiding per akers (see I&O). No acute episodes or complaints my shift. Call light in reach. Bed alarm on for safety.
--- NOTE | 2021-02-11 09:32 | HMH.ACPN2 ---
Internal Medicine - PN: Subj *Date: 02/12/21 *Time: 10:01 Interval history: improved - more alert -labs pending - is eating and drinking but still not back to baseline Exam Vital signs and Labs for Last 24 Hours: Temp Pulse Resp BP Pulse Ox 99.9 F H 81 19 123/70 94 L 02/11/21 08:00 02/11/21 08:00 02/11/21 08:00 02/11/21 08:00 02/11/21 08:00 Laboratory Results - last 24 hr 02/10/21 08:10: Total Counted 100, Neutrophils % (Manual) 80 H, Lymphocytes % (Manual) 11, Monocytes % (Manual) 5, Eosinophils % (Manual) 3, Basophils % (Manual) 1.0, Platelet Estimate Normal, Hypochromasia 1+, Macrocytosis 2+ 02/10/21 11:09: POC Glucose 172 H 02/10/21 16:08: POC Glucose 155 H 02/10/21 20:31: POC Glucose 170 H 02/11/21 06:28: POC Glucose 145 H I & O for Last 24 hours: Intake & Output 02/08/21 02/09/21 02/10/21 02/11/21 11:59 11:59 11:59 11:59 Intake Total 1477 / 1477 60 / 60 2670 / 2670 Output Total 775 / 775 1000 / 1000 1350 / 1350 Balance 702 / 702 -940 / -940 1320 / 1320 Weight 190 lb 14.052 oz 169 lb 12.095 oz 175 lb 4 oz 180 lb 3 oz Microbiology Reports for the Last 24 Hours: Microbiology 02/08/21 11:25 Urine,Catheterized Urine Culture - Preliminary 02/08/21 11:00 Blood Blood Culture - Preliminary NO GROWTH AFTER 48 HOURS 02/08/21 11:00 Blood Blood Culture - Preliminary NO GROWTH AFTER 48 HOURS - Constitutional no acute distress, obese - *Routine HEENT Exam Head: Present: normocephalic Eye: Present: EOMI, PERRL ENT: Present: mucous membranes dry - *Routine Neck Exam Absent: JVD - *Routine Respiratory Exam Present: decreased breath sounds - *Routine Cardiovascular Exam Present: RRR. Absent: murmur - *Routine Abdominal Exam Present: soft - *Routine Extremities Exam Absent: calf tenderness - *Routine Skin Exam Present: intact - *Routine Neurological Exam Present: alert, CN II-XII intact. Absent: motor deficit - Routine Psychiatric Exam Present: cooperative Assessment and Plan (1) TAURUS (acute kidney injury) Status: Acute Category: Medical Code(s): N17.9 - Acute kidney failure, unspecified (2) Healthcare-associated pneumonia Status: Acute Category: Medical Code(s): J18.9 - Pneumonia, unspecified organism (3) Sepsis Status: Acute Qualifiers: Sepsis type: sepsis due to unspecified organism Sepsis acute organ dysfunction status: with acute organ dysfunction Severe sepsis acute organ dysfunction type: acute renal failure Acute renal failure type: unspecified Severe sepsis shock status: without septic shock Qualified Code(s): A41.9 - Sepsis, unspecified organism; R65.20 - Severe sepsis without septic shock; N17.9 - Acute kidney failure, unspecified Category: Medical Code(s): A41.9 - Sepsis, unspecified organism (4) Altered mental status Status: Acute Qualifiers: Altered mental status type: unspecified Qualified Code(s): R41.82 - Altered mental status, unspecified Category: Medical Code(s): R41.82 - Altered mental status, unspecified (5) Pneumonia Status: Acute Qualifiers: Pneumonia type: due to unspecified organism Laterality: unspecified laterality Lung location: unspecified part of lung Qualified Code(s): J18.9 - Pneumonia, unspecified organism Category: Medical Code(s): J18.9 - Pneumonia, unspecified organism (6) CAD (coronary artery disease) Status: Chronic Qualifiers: Coronary Disease-Associated Artery/Lesion type: [place] artery [place] vs. transplanted heart: [place] heart Associated angina: without angina Qualified Code(s): I25.10 - Atherosclerotic heart disease of [place] coronary artery without angina pectoris Category: Medical Code(s): I25.10 - Atherosclerotic heart disease of [place] coronary artery without angina pectoris (7) Extreme obesity Status: Chronic Category: Medical Code(s): E66.8 - [place]
[2021-02-11 10:13] LABS: Basophils # 0.1 K/mm3 (0-0.2); Basophils % 0.6 % (0.1-2.0); Eosinophils # 0.5 K/mm3 (0.0-0.4); Eosinophils % 3.6 % (0.1-12.0); Hematocrit 32.2 % (42.0-52.0); Hemoglobin 9.9 g/dL (14.1-18.0); Lymphocytes % 14.5 % (10-50); Mean Corpuscular HGB Conc 30.7 g/dL (31.8-35.4); Mean Corpuscular Hemoglobin 32.9 pg (27.0-31.2); Mean Corpuscular Volume 107.3 fl (80-94); Mean Platelet Volume 9.2 fl (7.4-10.4); Monocytes # 0.6 K/mm3 (0.1-1.0); Monocytes % 4.3 % (1.7-9.3); Neutrophils # 10.6 K/mm3 (1.8-7.8); Platelet Count 241 K/mm3 (142-424); Red Cell Distribution Width 14.9 % (11.5-17.5); White Blood Count 13.8 K/mm3 (4.8-10.8)
[2021-02-11 10:23] LABS: Chloride 115 mmol/L (98-107); Potassium 4.1 mmoL/L (3.5-5.1); Sodium 144 mmol/L (136-145)
[2021-02-11 10:26] LABS: Anion Gap 13.1 mEq/L (5-15); Blood Urea Nitrogen 35 mg/dl (9-20); Calcium 7.8 mg/dl (8.4-10.2); Carbon Dioxide 20 mmol/L (22.0-30.0); Creatinine Clearance Estimated 74 mL/min (50-200); Estimated Glomerular Filt Rate 61 ml/min (>60); GFR (African American) 74 ML/MIN (>60); Glucose 159 mg/dl (74-100)
--- NOTE | 2021-02-11 11:48 | HMH.ACPN ---
Internal Medicine - PN: Subj *Date: 02/11/21 *Time: 11:48 Exam Vital signs and Labs for Last 24 Hours: Temp Pulse Resp BP Pulse Ox 99.9 F H 92 H 19 123/70 95 02/11/21 08:00 02/11/21 10:36 02/11/21 08:00 02/11/21 08:00 02/11/21 10:36 Laboratory Results - last 24 hr 02/10/21 16:08: POC Glucose 155 H 02/10/21 20:31: POC Glucose 170 H 02/11/21 06:28: POC Glucose 145 H 02/11/21 10:00: WBC 13.8 H, RBC 3.00 L, Hgb 9.9 L, Hct 32.2 L, MCV 107.3 H, MCH 32.9 H, MCHC 30.7 L, RDW 14.9, Plt Count 241, MPV 9.2, Neut % (Auto) 77.0, Lymph % (Auto) 14.5, [place] % (Auto) 4.3, Eos % (Auto) 3.6, Baso % (Auto) 0.6, Neut # (Auto) 10.6 H, Lymph # (Auto) 2.0, [place] # (Auto) 0.6, Eos # (Auto) 0.5 H, Baso # (Auto) 0.1 02/11/21 10:00: Sodium 144, Potassium 4.1, Chloride 115 H, Carbon Dioxide 20 L, Anion Gap 13.1, BUN 35 H D, Creatinine 1.20, Estimated Creat Clear 74, Estimated GFR 61, Est GFR ( Amer) 74 D, Glucose 159 H, Calcium 7.8 L I & O for Last 24 hours: Intake & Output 02/08/21 02/09/21 02/10/21 02/11/21 23:59 23:59 23:59 23:59 Intake Total 0 / 0 1477 / 1537 540 / 540 2190 / 2190 Output Total 775 / 775 1800 / 2000 550 / 550 Balance 0 / -400 702 / 762 -1260 / -1460 1640 / 1640 Weight 86.581 kg 77 kg 79.492 kg 81.732 kg Microbiology Reports for the Last 24 Hours: Microbiology 02/08/21 11:25 Urine,Catheterized Urine Culture - Preliminary 02/08/21 11:00 Blood Blood Culture - Preliminary NO GROWTH AFTER 48 HOURS 02/08/21 11:00 Blood Blood Culture - Preliminary NO GROWTH AFTER 48 HOURS Assessment and Plan (1) TAURUS (acute kidney injury) Status: Acute Category: Medical Code(s): N17.9 - Acute kidney failure, unspecified (2) Healthcare-associated pneumonia Status: Acute Category: Medical Code(s): J18.9 - Pneumonia, unspecified organism (3) Sepsis Status: Acute Qualifiers: Sepsis type: sepsis due to unspecified organism Sepsis acute organ dysfunction status: with acute organ dysfunction Severe sepsis acute organ dysfunction type: acute renal failure Acute renal failure type: unspecified Severe sepsis shock status: without septic shock Qualified Code(s): A41.9 - Sepsis, unspecified organism; R65.20 - Severe sepsis without septic shock; N17.9 - Acute kidney failure, unspecified Category: Medical Code(s): A41.9 - Sepsis, unspecified organism (4) Altered mental status Status: Acute Qualifiers: Altered mental status type: unspecified Qualified Code(s): R41.82 - Altered mental status, unspecified Category: Medical Code(s): R41.82 - Altered mental status, unspecified (5) Pneumonia Status: Acute Qualifiers: Pneumonia type: due to unspecified organism Laterality: unspecified laterality Lung location: unspecified part of lung Qualified Code(s): J18.9 - Pneumonia, unspecified organism Category: Medical Code(s): J18.9 - Pneumonia, unspecified organism (6) CAD (coronary artery disease) Status: Chronic Qualifiers: Coronary Disease-Associated Artery/Lesion type: [place] artery [place] vs. transplanted heart: [place] heart Associated angina: without angina Qualified Code(s): I25.10 - Atherosclerotic heart disease of [place] coronary artery without angina pectoris Category: Medical Code(s): I25.10 - Atherosclerotic heart disease of [place] coronary artery without angina pectoris (7) Extreme obesity Status: Chronic Category: Medical Code(s): E66.8 - Other obesity (8) HHD (hypertensive heart disease) Status: Chronic Qualifiers: Heart failure presence: without heart failure Qualified Code(s): I11.9 - Hypertensive heart disease without heart failure Category: Medical Code(s): I11.9 - Hypertensive heart disease without heart failure (9) HLD (hyperlipidemia) Status: Chronic Qualifiers: Hyperlipidemia type: mixed hyperlipidemia Qualified Code(s):
[2021-02-11 12:10] LABS: POC Glucose,Bedside 159 (70-110)
[2021-02-11 17:09] LABS: POC Glucose,Bedside 130 (70-110)
--- NOTE | 2021-02-11 18:47 | PC.NURSE ---
Pt has been pleasant and cooperative this shift. A&O X4. No complaints of pain or SOA. Pt is on room air with sats. >90%. Lung sounds reveal inspiratory/expiratory rhonchi. No edema noted. Stage 2 ulceration noted to coccyx and covered with pressure-relief dressing. Pt has been turned Q2H this shift. F/C is patent and draining clear, yellow urine at bedside to gravity. No BM thus far this shift. Appetite is poor and pt only eats about 25% of every meal. FSBS results have been 159 and 130. 20 G peripheral IV in the LT AC is patent and infusing 0.45% NS @ 125 ML/HR. B/P has been low this shift. Other VSS. Call light within reach. Will continue to monitor.
--- NOTE | 2021-02-11 22:02 | ECG_ITS ---
APPROVED REPORT Exam: Resting ECG HR:87 bpm ECG Measurements Heart Rate 87 AXES NC 158 P 80 QRSd 68 QRS 61 QT 334 T 37 QTc 401 Conclusion Normal sinus rhythm Low voltage QRS Borderline ECG Electronically signed by : Fritz Acosta MD 02/17/2021 09:50:58
--- NOTE | 2021-02-11 22:03 | XR_ITS ---
PROCEDURE INFORMATION: Exam: XR Chest Exam date and time: 02/11/2021 10:03 PM Age: 60 years old Clinical indication: Other: Hypotension TECHNIQUE: Imaging protocol: XR of the chest. Views: 1 view. COMPARISON: CR XR CHEST PORTABLE 02/09/2021 5:38 AM FINDINGS: Lungs: Low lung volumes, limiting evaluation of lung bases. No focal consolidation. Pulmonary vascular congestion without overt pulmonary edema. Pleural spaces: No large pleural effusion. No pneumothorax. Heart/Mediastinum: Cardiomediastinal silhouette is unchanged, accounting for differences in technique. Global cardiomegaly again noted. Bones/joints: No acute osseous abnormality. Soft tissues: Unremarkable. IMPRESSION: 1. No evidence of acute cardiopulmonary process, noting low lung volumes limit evaluation of the lung bases. 2. Pulmonary vascular congestion without overt pulmonary edema. 3. Global cardiomegaly.
[2021-02-11 22:19] LABS: ABG Base Excess -11.1 mmol/L (-2.4-2.3); ABG HCO3 14.9 mmhg (22.0-26.0); ABG Oxygen Saturation 75 % (90-100); ABG PCO2 29.2 mmhg (35.0-45.0); ABG PH 7.33 mmol/L (7.35-7.45); ABG TCO2 15.8 mmhg (23-27)
[2021-02-11 22:20] LABS: Allen's Test Y; Oxygen r/a %; Source R/R
[2021-02-11 22:22] LABS: ABG PO2 41.2 mmhg (80-100)
--- NOTE | 2021-02-11 22:25 | CT_ITS ---
PROCEDURE INFORMATION: Exam: CTA Chest With Contrast Exam date and time: 02/11/2021 10:25 PM Age: 60 years old Clinical indication: Shortness of breath and other: Hypotension RO pe; Additional info: Stat RO pe TECHNIQUE: Imaging protocol: Computed tomographic angiography of the chest with contrast. 3D rendering (Not supervised by radiologist): MIP and/or 3D reconstructed images were created by the technologist. Radiation optimization: All CT scans at this facility use at least one of these dose optimization techniques: automated exposure control; mA and/or kV adjustment per patient size (includes targeted exams where dose is matched to clinical indication); or iterative reconstruction. Contrast material: ISOVUE 370; Contrast volume: 70 ml; Contrast route: INTRAVENOUS (IV); COMPARISON: CT CHEST WO CON 02/08/2021 1:39 PM FINDINGS: Limitations: Respiratory motion artifact degrades images, limiting sensitivity of exam. Pulmonary arteries: No evidence of large pulmonary emboli (saddle/lobar). Respiratory motion artifact limits evaluation for definitive exclusion of most pulmonary emboli (segmental/subsegmental). Aorta: No aortic dissection or aneurysm. Other arteries: Mild amount of calcified and non-calcified arterial atherosclerosis. 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 Few calcified pulmonary granulomata compatible with chronic sequelae of prior granulomatous disease, unchanged. Subsegmental atelectasis/scarring in the right lung apex, unchanged. Noncalcified 4-5 mm nodule in the lingula and left lower lobe are stable since at least 10/16/2016 and likely benign. No further follow-up imaging is necessary (Reference: [place]). No new or enlarging pulmonary nodules. Pleural spaces: No pneumothorax. No pleural effusion. Intra-thoracic, extra-pleural fat noted along the posterior lower lobes. Heart: Prominent pericardial fat pad. No cardiomegaly. No significant pericardial effusion. Three vessel coronary artery disease, unchanged. Interatrial septal lipomatous hypertrophy, unchanged. Lymph nodes: No enlarged lymph nodes by CT criteria. Diaphragm: Elevated right hemidiaphragm, unchanged. Intraperitoneal space: No emergent findings or suspicious mass lesions in the visualized upper abdomen. Bones/joints: No acute fracture or malalignment. Soft tissues: Gynecomastia. IMPRESSION: 1. No acute findings. No evidence of large pulmonary emboli. Technically suboptimal study for definitive exclusion of most smaller pulmonary emboli (segmental/subsegmental). 2. Prominent pericardial fat pad and mediastinal lipomatosis. No evidence of cardiomegaly. 3. Additional chronic ancillary findings are stable, as detailed above. REFERENCES: Scott Kumari, et al. Guidelines for Management of Incidental Pulmonary Nodules Detected on CT Images: From the Fleischner Society 2017. Radiology. 2017;284(1):228-243.
--- NOTE | 2021-02-11 22:38 | PC.NURSE ---
Off unit to CT
--- NOTE | 2021-02-11 22:39 | PC.NURSE ---
patient took down via stretcher to Radiology @ this time
--- NOTE | 2021-02-11 23:00 | PC.NURSE ---
back to room from CT
--- NOTE | 2021-02-11 23:00 | PC.NURSE ---
patient back up to floor @ this time.
[2021-02-12] VITALS (15 sets, daily range): BP systolic 85–105; BP diastolic 43–60; PULSE 80–100; RESP 20–26; TEMP 36.6–37; O2SAT 94–100; BMI 31.0
[2021-02-12 01:22] LABS: POC Glucose,Bedside 132 (70-110)
[2021-02-12 06:55] LABS: Chloride 116 mmol/L (98-107); Potassium 3.7 mmoL/L (3.5-5.1); Sodium 144 mmol/L (136-145)
[2021-02-12 06:58] LABS: Anion Gap 12.7 mEq/L (5-15); Blood Urea Nitrogen 34 mg/dl (9-20); Calcium 7.6 mg/dl (8.4-10.2); Carbon Dioxide 19 mmol/L (22.0-30.0); Creatinine Clearance Estimated 65 mL/min (50-200); Estimated Glomerular Filt Rate 51 ml/min (>60); GFR (African American) 62 ML/MIN (>60); Glucose 128 mg/dl (74-100)
[2021-02-12 07:31] LABS: Vancomycin,Trough 17.3 ug/mL (5.0-10.0)
--- NOTE | 2021-02-12 07:33 | PC.NURSE ---
At 2150 patient was noted to be pale, diaphoretic, and clammy. Patient awakens briefly to verbal stimuli. Oriented only to self. Patient then returns to sleep with snoring respirations and apnea noted. BP manually is 60/44. No tachycardia noted. Patient was noted to have had a large hard BM. Dr. Travis updated and orders received. Recheck BP and monitor. EKG and CXR and ABG completed. Lab unable to obtain labs. Dr. Travis up to assess patient, attempts lab draw and was also unable to, labs canceled at that time. Patient placed on monitor with frequent vitals. CT PE protocol completed. Upon return to floor patient remains hypotensive. Dr. Travis updated and order for fluid bolus received. Bolus given. Patient's bp responded to bolus and raised to recent baseline. Patient arouses with verbal stimuli but remains confused and falls back to sleep quickly.
--- NOTE | 2021-02-12 07:41 | PC.NURSE ---
Patient status unchanged. Awakens to verbal stimuli briefly, remains confused. SR on monitor. BP stable in 90s at this time. Adequate urine output. Turned as tolerated for pressure relief.
[2021-02-12 07:55] LABS: Basophils # 0.1 K/mm3 (0-0.2); Basophils % 0.7 % (0.1-2.0); Eosinophils # 0.4 K/mm3 (0.0-0.4); Eosinophils % 3.9 % (0.1-12.0); Hematocrit 29.3 % (42.0-52.0); Lymphocytes # 1.8 K/mm3 (0.7-4.5); Lymphocytes % 16.4 % (10-50); Mean Corpuscular HGB Conc 30.1 g/dL (31.8-35.4); Mean Corpuscular Volume 109.8 fl (80-94); Mean Platelet Volume 9.2 fl (7.4-10.4); Monocytes # 0.4 K/mm3 (0.1-1.0); Monocytes % 3.7 % (1.7-9.3); Neutrophils # 8.2 K/mm3 (1.8-7.8); Neutrophils % 75.3 % (37.0-80.0); Platelet Count 199 K/mm3 (142-424); Red Blood Count 2.67 M/mm3 (4.60-6.20); Red Cell Distribution Width 15.2 % (11.5-17.5); White Blood Count 10.9 K/mm3 (4.8-10.8)
[2021-02-12 08:01] LABS: Hemoglobin 8.8 g/dL (14.1-18.0)
--- NOTE | 2021-02-12 08:51 | HMH.ACPN2 ---
Internal Medicine - PN: Subj *Date: 02/12/21 *Time: 08:10 Interval history: pt alert and talking this am. Exam Vital signs and Labs for Last 24 Hours: Temp Pulse Resp BP Pulse Ox 98.2 F 95 H 20 97/46 L 97 02/12/21 08:00 02/12/21 08:00 02/12/21 08:00 02/12/21 08:00 02/12/21 08:00 Laboratory Results - last 24 hr 02/11/21 10:00: WBC 13.8 H, RBC 3.00 L, Hgb 9.9 L, Hct 32.2 L, MCV 107.3 H, MCH 32.9 H, MCHC 30.7 L, RDW 14.9, Plt Count 241, MPV 9.2, Neut % (Auto) 77.0, Lymph % (Auto) 14.5, [place] % (Auto) 4.3, Eos % (Auto) 3.6, Baso % (Auto) 0.6, Neut # (Auto) 10.6 H, Lymph # (Auto) 2.0, [place] # (Auto) 0.6, Eos # (Auto) 0.5 H, Baso # (Auto) 0.1 02/11/21 10:00: Sodium 144, Potassium 4.1, Chloride 115 H, Carbon Dioxide 20 L, Anion Gap 13.1, BUN 35 H D, Creatinine 1.20, Estimated Creat Clear 74, Estimated GFR 61, Est GFR ( Amer) 74 D, Glucose 159 H, Calcium 7.8 L 02/11/21 11:49: POC Glucose 159 H 02/11/21 17:01: POC Glucose 130 H 02/11/21 21:46: POC Glucose 132 H 02/11/21 22:02: Specimen Source R/r, O2 % r/a, ABG pH 7.33 L, ABG pCO2 29.2 L, ABG pO2 41.2 L, ABG HCO3 14.9 L, ABG Total CO2 15.8 L, ABG O2 Saturation 75 L*, ABG Base Excess -11.1 L, [place] Test Y 02/12/21 06:23: Sodium 144, Potassium 3.7, Chloride 116 H, Carbon Dioxide 19 L, Anion Gap 12.7, BUN 34 H, Creatinine 1.40 H, Estimated Creat Clear 65, Estimated GFR 51 L, Est GFR ( Amer) 62, Glucose 128 H, Calcium 7.6 L 02/12/21 06:23: Vancomycin Trough 17.3 H 02/12/21 06:23: WBC 10.9 H, RBC 2.67 L, Hgb 8.8 L D, Hct 29.3 L, MCV 109.8 H, MCH 33.0 H, MCHC 30.1 L, RDW 15.2, Plt Count 199, MPV 9.2, Neut % (Auto) 75.3, Lymph % (Auto) 16.4, [place] % (Auto) 3.7, Eos % (Auto) 3.9, Baso % (Auto) 0.7, Neut # (Auto) 8.2 H, Lymph # (Auto) 1.8, [place] # (Auto) 0.4, Eos # (Auto) 0.4, Baso # (Auto) 0.1 I & O for Last 24 hours: Intake & Output 02/09/21 02/10/21 02/11/21 02/12/21 11:59 11:59 11:59 11:59 Intake Total 1477 / 1477 60 / 60 2670 / 2670 7788 / 7788 Output Total 775 / 775 1000 / 1000 1350 / 1350 850 / 850 Balance 702 / 702 -940 / -940 1320 / 1320 6938 / 6938 Weight 169 lb 12.095 oz 175 lb 4 oz 180 lb 3 oz 186 lb 8 oz Microbiology Reports for the Last 24 Hours: Microbiology 02/08/21 11:25 Urine,Catheterized Urine Culture - Preliminary - Constitutional no acute distress, obese, chronically ill appearing - *Routine HEENT Exam Head: Present: normocephalic Eye: Present: PERRL ENT: Present: mucous membranes moist - *Routine Neck Exam Present: supple. Absent: lymphadenopathy - *Routine Respiratory Exam Present: rhonchi - *Routine Cardiovascular Exam Present: RRR - *Routine Abdominal Exam Present: soft, normoactive bowel sounds. Absent: tenderness - *Routine Extremities Exam Absent: cyanosis, clubbing, edema - *Routine Skin Exam Present: warm. Absent: rash - *Routine Neurological Exam Present: alert Assessment and Plan (1) TAURUS (acute kidney injury) Status: Acute Category: Medical Code(s): N17.9 - Acute kidney failure, unspecified (2) Healthcare-associated pneumonia Status: Acute Category: Medical Code(s): J18.9 - Pneumonia, unspecified organism (3) Sepsis Status: Acute Qualifiers: Sepsis type: sepsis due to unspecified organism Sepsis acute organ dysfunction status: with acute organ dysfunction Severe sepsis acute organ dysfunction type: acute renal failure Acute renal failure type: unspecified Severe sepsis shock status: without septic shock Qualified Code(s): A41.9 - Sepsis, unspecified organism; R65.20 - Severe sepsis without septic shock; N17.9 - Acute kidney failure, unspecified Category: Medical Code(s): A41.9 - Sepsis, unspecified organism (4) Altered mental status Status: Acute Qualifiers: Altered mental status type: unspecified Qualified Code(s): R41.82 - Altered mental status, unspecified Category: Medical Code(s): R41.82 - Altered mental status, unspecified (5) P
--- NOTE | 2021-02-12 08:57 | HMH.PULMCON ---
*Admission Date: 02/09/21 *Reason for consult:: Hypoxic respiratory failure *History of present illness: is a 60-year-old male no significant smoking history was seen in the pulmonary clinic around June 2019 and was discharged on Spiriva inhaler presented to the hospital with fevers and altered mentation, admitting to needing oxygen supplementation to maintain his saturations and pulmonary was called for further management. [facility] History Medical History: Reports:: Anxiety, Asthma, Atherosclerotic Heart Disease, Cardiomyopathy, Congestive Heart Failure, Chronic Obstructive Pulmonary Disease (COPD), Congenital Heart Disease, Coronary Artery Disease, Depression, Diabetes Mellitus Type 2, Gastroesophageal Reflux Disease(GERD), Home Oxygen, Hyperlipidemia, Hypertension, Lung Disease, Osteoporosis, Peripheral Artery Disease, Peripheral Vascular Disease Denies:: Cancer, Diabetes Mellitus Type 1, Internal Pacemaker, MRSA, Seizures *Have you ever received a pneumonia vaccine?: Yes *Have you received a flu vaccine this season?: Yes Other Medical History: Reports: Anemia, Arthritis, Cataracts, Hypothyroidism, Osteoporosis, Sinus Problems, Thyroid Disease, Other (bph,) Laterality Cases: Bilateral: Carpal Tunnel Release Other Surgeries: Yes: No Previous Surgery, Cardiac Catheterization, Colonoscopy, Coronary Stent, EGD, Hernia Repair, Other. No: Pacemaker Amputation: No Fractures: No - *Social History Smoking Status: Former smoker Tobacco Type: cigarettes Alcohol Intake: former Alcohol Intake Frequency:: 0-2 drinks per day Substance Use Type: denies use *Occupational Status:: disabled Housing: shelter Household Members: caregiver *Travel in the last 8 weeks: None - Psychiatric History Pschychiatric History:: Reports:: Anxiety, Depression Family Hx:: Unable to obtain ROS - Cons Denies body ache(s), Denies chills - ENT Denies bleeding gums - Card Reports shortness of breath with activity - Resp Respiratory: Denies cough, Denies pain on inspiration, Denies pain with cough, Denies cough with sputum production, Reports snoring - GI Gastrointestingal: Denies: abdominal pain - Psych Denies thoughts of hurting/killing others, Denies thoughts of hurting/killing yourself Meds Home Medications Medication Instructions Recorded Confirmed Type atorvastatin 40 mg tablet 40 mg PO HS 03/24/17 02/08/21 History furosemide 80 mg tablet 80 mg PO 1100,1700 tab 03/24/17 02/09/21 History loratadine 10 mg tablet 10 mg PO 1100 03/24/17 02/09/21 History isosorbide mononitrate 30 mg 30 mg PO DAILY 04/11/17 02/08/21 History tablet,extended release 24 hr folic acid 0.8 mg capsule 0.8 mg PO 1100 09/30/17 02/09/21 History magnesium oxide 400 mg PO HS cap 09/30/17 02/08/21 History spironolactone 50 mg tablet 50 mg PO 1100,1999 tab 09/30/17 02/09/21 History Acetaminophen 500 mg PO Q4HP PRN 11/10/17 02/08/21 History Omeprazole [Omeprazole 20mg 20 mg PO Q48H 11/10/17 02/08/21 History Capsule] Cyanocobalamin (Vitamin B-12) 750 mcg PO DAILY 11/11/17 02/08/21 History [Vitamin B-12] Levothyroxine Sodium 50 mcg PO DAILY 11/11/17 02/08/21 History [Levothyroxine 50mcg (0.05mg) Tab] Potassium Chloride [Klor-con 20 40 meq PO BID 11/11/17 02/08/21 History mEq tablet] losartan 25 mg tablet 12.5 mg PO DAILY tab 09/29/18 02/08/21 History Bisacodyl [Bisacodyl 10mg Supp] 10 mg RC DAILYP PRN 11/17/18 02/08/21 History Mag Carb/Aluminum Hydrox/Algin 30 ml PO Q4HP PRN 11/17/18 02/08/21 History [Acid Gone Antacid Liquid] Duloxetine HCl 120 mg PO DAILY 11/18/18 02/08/21 History Sennosides [Senna] 8.6 mg PO 1100,199901/24/19 02/09/21 History Aspirin [Aspirin 81mg chewable 81 mg PO DAILY 01/25/19 02/08/21 History tab] Loperamide HCl [Anti-Diarrheal] 2 mg PO Q4HP PRN 01/25/19 02/08/21 History Trazodone HCl 100 mg PO HS 02/24/20 02/08/21 History Linagliptin [Tradjenta 5mg tablet] 5 mg PO 1100 04/07/20 02/09/21 History tamsulosin
--- NOTE | 2021-02-12 10:49 | SW/DCPLANNER ---
SENT UPDATES TO [facility] ON THIS PATIENT.. PATIENT IS A LONGSTANDING RESIDENT THERE AND THE PLAN IS FOR HIM TO DISCHARGE BACK TO HIS ASSISTED BED AT [facility] PENDING NO SETBACKS THIS EVENING...
--- NOTE | 2021-02-12 11:01 | HMH.CNCARD ---
History of Present Illness Consult date: 02/12/21 Requesting physician: Roney Travis Consult reason: congestive heart failure Chief complaint: sleepy History of present illness: This is a 60-year-old white gentleman who presented to the emergency department from [facility] with altered mental status. The patient was noticed to have a fever on arrival. The patient was diagnosed with healthcare associated pneumonia and started on IV antibiotics. The patient denies any chest pain or pressure. He denies any shortness of breath or edema. He denies any fever, chills, nausea, vomiting, diarrhea, PND or orthopnea. When I walk in the room the patient is lying flat. His only complaint today is that he is sleepy and he wants to continue to be able to sleep. Cardiology was consulted because the patient does have a history of congestive heart failure. [place] History I have reviewed the patient's past medical history: Yes Medical History: Reports:: Anxiety, Asthma, Atherosclerotic Heart Disease, Cardiomyopathy, Congestive Heart Failure, Chronic Obstructive Pulmonary Disease (COPD), Congenital Heart Disease, Coronary Artery Disease, Depression, Diabetes Mellitus Type 2, Gastroesophageal Reflux Disease(GERD), Home Oxygen, Hyperlipidemia, Hypertension, Lung Disease, Osteoporosis, Peripheral Artery Disease, Peripheral Vascular Disease Denies:: Cancer, Diabetes Mellitus Type 1, Internal Pacemaker, MRSA, Seizures *Have you ever received a pneumonia vaccine?: Yes *Have you received a flu vaccine this season?: Yes Other Medical History: Reports: Anemia, Arthritis, Cataracts, Hypothyroidism, Osteoporosis, Sinus Problems, Thyroid Disease, Other (bph,) Laterality Cases: Bilateral: Carpal Tunnel Release Other Surgeries: Yes: No Previous Surgery, Cardiac Catheterization, Colonoscopy, Coronary Stent, EGD, Hernia Repair, Other. No: Pacemaker Amputation: No Fractures: No - *Social History Smoking Status: Former smoker Tobacco Type: cigarettes Alcohol Intake: former Alcohol Intake Frequency:: 0-2 drinks per day Substance Use Type: denies use *Occupational Status:: disabled Housing: long-term Household Members: caregiver *Travel in the last 8 weeks: None - Psychiatric History Pschychiatric History:: Reports:: Anxiety, Depression Family Hx:: Unable to obtain Meds Home Medications Medication Instructions Recorded Confirmed Type atorvastatin 40 mg tablet 40 mg PO HS 03/24/17 02/08/21 History furosemide 80 mg tablet 80 mg PO 1100,1700 tab 03/24/17 02/09/21 History loratadine 10 mg tablet 10 mg PO 1100 03/24/17 02/09/21 History isosorbide mononitrate 30 mg 30 mg PO DAILY 04/11/17 02/08/21 History tablet,extended release 24 hr folic acid 0.8 mg capsule 0.8 mg PO 1100 09/30/17 02/09/21 History magnesium oxide 400 mg PO HS cap 09/30/17 02/08/21 History spironolactone 50 mg tablet 50 mg PO 1099,1999 tab 09/30/17 02/09/21 History Acetaminophen 500 mg PO Q4HP PRN 11/10/17 02/08/21 History Omeprazole [Omeprazole 20mg 20 mg PO Q48H 11/10/17 02/08/21 History Capsule] Cyanocobalamin (Vitamin B-12) 750 mcg PO DAILY 11/11/17 02/08/21 History [Vitamin B-12] Levothyroxine Sodium 50 mcg PO DAILY 11/11/17 02/08/21 History [Levothyroxine 50mcg (0.05mg) Tab] Potassium Chloride [Klor-con 20 40 meq PO BID 11/11/17 02/08/21 History mEq tablet] losartan 25 mg tablet 12.5 mg PO DAILY tab 09/29/18 02/08/21 History Bisacodyl [Bisacodyl 10mg Supp] 10 mg RC DAILYP PRN 11/17/18 02/08/21 History Mag Carb/Aluminum Hydrox/Algin 30 ml PO Q4HP PRN 11/17/18 02/08/21 History [Acid Gone Antacid Liquid] Duloxetine HCl 120 mg PO DAILY 11/18/18 02/08/21 History Sennosides [Senna] 8.6 mg PO 1100,199901/24/19 02/09/21 History Aspirin [Aspirin 81mg chewable 81 mg PO DAILY 01/25/19 02/08/21 History tab] Loperamide HCl [Anti-Diarrheal] 2 mg PO Q4HP PRN 01/25/19 02/08/21 History Trazodone HCl 100 mg PO HS 02/24/20 02/08/21 History Linagliptin [Tradje
[2021-02-12 11:33] LABS: POC Glucose,Bedside 130 (70-110)
[2021-02-12 11:52] LABS: POC Glucose,Bedside 160 (70-110)
[2021-02-12 12:25] LABS: Vancomycin,Peak 35.4 ug/ml (11-39)
--- NOTE | 2021-02-12 13:07 | PC.NURSE ---
Pt refused both breakfast and lunch tray, offered food alternatives/ supplements. Pt refused these as well.
--- NOTE | 2021-02-12 15:44 | HMH.PHACONS ---
- Pharmacy Consult Date: 02/12/21 Time: 15:45 Referring provider: DR. REGAN Reason for Consult:: VANCOMYCIN LEVELS Allergies and ADEs:: Allergies Allergy/AdvReac Type Severity Reaction Status Date / Time morphine [MORPHINE] Allergy Mild HURTS Verified 01/25/21 14:16 STOMACH nitroglycerin Allergy Mild Nausea Verified 01/25/21 14:16 Home Medications:: Home Medications Medication Instructions Recorded Confirmed Type atorvastatin 40 mg tablet 40 mg PO HS 03/24/17 02/08/21 History furosemide 80 mg tablet 80 mg PO 1100,1700 tab 03/24/17 02/09/21 History loratadine 10 mg tablet 10 mg PO 1100 03/24/17 02/09/21 History isosorbide mononitrate 30 mg 30 mg PO DAILY 04/11/17 02/08/21 History tablet,extended release 24 hr folic acid 0.8 mg capsule 0.8 mg PO 1100 09/30/17 02/09/21 History magnesium oxide 400 mg PO HS cap 09/30/17 02/08/21 History spironolactone 50 mg tablet 50 mg PO 1100,2000 tab 09/30/17 02/09/21 History Acetaminophen 500 mg PO Q4HP PRN 11/10/17 02/08/21 History Omeprazole [Omeprazole 20mg 20 mg PO Q48H 11/10/17 02/08/21 History Capsule] Cyanocobalamin (Vitamin B-12) 750 mcg PO DAILY 11/11/17 02/08/21 History [Vitamin B-12] Levothyroxine Sodium 50 mcg PO DAILY 11/11/17 02/08/21 History [Levothyroxine 50mcg (0.05mg) Tab] Potassium Chloride [Klor-con 20 40 meq PO BID 11/11/17 02/08/21 History mEq tablet] losartan 25 mg tablet 12.5 mg PO DAILY tab 09/29/18 02/08/21 History Bisacodyl [Bisacodyl 10mg Supp] 10 mg RC DAILYP PRN 11/17/18 02/08/21 History Mag Carb/Aluminum Hydrox/Algin 30 ml PO Q4HP PRN 11/17/18 02/08/21 History [Acid Gone Antacid Liquid] Duloxetine HCl 120 mg PO DAILY 11/18/18 02/08/21 History Sennosides [Senna] 8.6 mg PO 1099,199901/24/19 02/09/21 History Aspirin [Aspirin 81mg chewable 81 mg PO DAILY 01/25/19 02/08/21 History tab] Loperamide HCl [Anti-Diarrheal] 2 mg PO Q4HP PRN 01/25/19 02/08/21 History Trazodone HCl 100 mg PO HS 02/24/20 02/08/21 History Linagliptin [Tradjenta 5mg tablet] 5 mg PO 1100 04/07/20 02/09/21 History tamsulosin 0.4 mg capsule 0.4 mg PO 1100 04/24/20 02/09/21 History Tiotropium [place] [Spiriva 2 puff INHALATION DAILY 10/12/20 02/08/21 History Respimat] metformin 500 mg tablet 500 mg PO BID 10/30/20 02/08/21 History gabapentin 100 mg capsule 100 mg PO TID #90 cap 11/24/20 02/08/21 Rx tramadol 50 mg tablet 50 mg PO TID #90 tab 12/01/20 02/08/21 Rx Albuterol Sulfate [Albuterol 1 inh INHALATION QIDP PRN 02/09/21 02/09/21 History Sulfate Hfa] Docusate Calcium 240 mg PO DAILYP PRN 02/09/21 02/09/21 History Lactulose 20 gm PO DAILYP PRN 02/09/21 02/09/21 History Multivitamin with Folic Acid 400 mcg PO 109902/09/21 02/09/21 History [Tab-A-Laron Tablet] Olopatadine HCl 1 drp OP 02/09/21 02/09/21 History guaiFENesin [Diabetic Tussin] 200 mg PO Q4HP PRN 02/09/21 02/09/21 History Height: 1.65 m Weight: 84.595 kg Laboratory Results:: Laboratory Results - last 24 hr 02/11/21 17:01: POC Glucose 130 H 02/11/21 21:46: POC Glucose 132 H 02/11/21 22:02: Specimen Source R/r, O2 % r/a, ABG pH 7.33 L, ABG pCO2 29.2 L, ABG pO2 41.2 L, ABG HCO3 14.9 L, ABG Total CO2 15.8 L, ABG O2 Saturation 75 L*, ABG Base Excess -11.1 L, [place] Test Y 02/12/21 06:23: Sodium 144, Potassium 3.7, Chloride 116 H, Carbon Dioxide 19 L, Anion Gap 12.7, BUN 34 H, Creatinine 1.40 H, Estimated Creat Clear 65, Estimated GFR 51 L, Est GFR ( Amer) 62, Glucose 128 H, Calcium 7.6 L 02/12/21 06:23: Vancomycin Trough 17.3 H 02/12/21 06:23: WBC 10.9 H, RBC 2.67 L, Hgb 8.8 L D, Hct 29.3 L, MCV 109.8 H, MCH 33.0 H, MCHC 30.1 L, RDW 15.2, Plt Count 199, MPV 9.2, Neut % (Auto) 75.3, Lymph % (Auto) 16.4, [place] % (Auto) 3.7, Eos % (Auto) 3.9, Baso % (Auto) 0.7, Neut # (Auto) 8.2 H, Lymph # (Auto) 1.8, [place] # (Auto) 0.4, Eos # (Auto) 0.4, Baso # (Auto) 0.1 02/12/21 06:23: POC Glucose 130 H 02/12/21 11:00: Vancomycin Peak 35.4 02/12/21 11:37: POC Glucose 160 H Medi
[2021-02-12 17:28] LABS: POC Glucose,Bedside 114 (70-110)
--- NOTE | 2021-02-12 19:18 | PC.NURSE ---
akers catheter removed as per provider order; size small condom catheter applied. No acute events throughout shift
[2021-02-12 22:01] LABS: POC Glucose,Bedside 155 (70-110)
[2021-02-13] VITALS (8 sets, daily range): BP systolic 90–105; BP diastolic 44–59; PULSE 79–92; RESP 18–22; TEMP 36.7–36.8; O2SAT 95–97; BMI 31.2
[2021-02-13 06:02] LABS: Basophils # 0.1 K/mm3 (0-0.2); Basophils % 0.6 % (0.1-2.0); Eosinophils # 0.4 K/mm3 (0.0-0.4); Eosinophils % 3.9 % (0.1-12.0); Hematocrit 29.9 % (42.0-52.0); Hemoglobin 9.1 g/dL (14.1-18.0); Lymphocytes # 1.6 K/mm3 (0.7-4.5); Lymphocytes % 15.3 % (10-50); Mean Corpuscular HGB Conc 30.3 g/dL (31.8-35.4); Mean Corpuscular Hemoglobin 33.1 pg (27.0-31.2); Mean Corpuscular Volume 109.5 fl (80-94); Mean Platelet Volume 9.4 fl (7.4-10.4); Monocytes # 0.4 K/mm3 (0.1-1.0); Monocytes % 3.3 % (1.7-9.3); Neutrophils # 8.2 K/mm3 (1.8-7.8); Neutrophils % 76.9 % (37.0-80.0); Platelet Count 185 K/mm3 (142-424); Red Blood Count 2.73 M/mm3 (4.60-6.20); Red Cell Distribution Width 15.3 % (11.5-17.5); White Blood Count 10.6 K/mm3 (4.8-10.8)
[2021-02-13 06:13] LABS: Chloride 115 mmol/L (98-107); Sodium 139 mmol/L (136-145)
[2021-02-13 06:14] LABS: Potassium 4.2 mmoL/L (3.5-5.1)
[2021-02-13 06:16] LABS: Blood Urea Nitrogen 17 mg/dl (9-20); Creatinine Clearance Estimated 92 mL/min (50-200); Estimated Glomerular Filt Rate 76 ml/min (>60); GFR (African American) 92 ML/MIN (>60)
[2021-02-13 06:17] LABS: Anion Gap 11.2 mEq/L (5-15); Calcium 7.9 mg/dl (8.4-10.2); Carbon Dioxide 17 mmol/L (22.0-30.0); Glucose 119 mg/dl (74-100)
[2021-02-13 07:10] LABS: POC Glucose,Bedside 120 (70-110)
--- NOTE | 2021-02-13 07:44 | PC.NURSE ---
patient rested well. vss on ra. Denies pain. turn q2 for pressure relief. condom cath in place for incontinence
[2021-02-13 09:07] LABS: ABG Base Excess -8.3 mmol/L (-2.4-2.3); ABG HCO3 16.9 mmhg (22.0-26.0); ABG Oxygen Saturation 97 % (90-100); ABG PCO2 29.4 mmhg (35.0-45.0); ABG PH 7.38 mmol/L (7.35-7.45); ABG PO2 84.8 mmhg (80-100); ABG TCO2 17.8 mmhg (23-27)
[2021-02-13 09:10] LABS: Allen's Test acceptable; Lactate Arterial 1.1 mmol/L (0.4-2.0); Oxygen r/a %; Source rr
--- NOTE | 2021-02-13 09:21 | HMH.PULMPN ---
Internal Medicine - PN: Subj *Date: 02/27/21 *Time: 16:38 Interval history: No acute respiratory vents overnight. Patient continued to remain on room air. Exam - Constitutional Constitutional:: Present: no acute distress, comfortable - HENMT Exam HENMT: Present: normocephalic, atraumatic - Eye Exam Eyes:: Present: normal appearance both eyes and related structures - Neck Exam Neck:: Present: normal visual inspection - Respiratory Exam Respiratory:: Present: able to speak in complete sentences, no respiratory distress, normal respiratory effort. Absent: wheezing - Cardiovascular Exam Cardiac:: Present: S1, S2 - GI Exam GI:: Present: soft - Skin Exam Skin: Present: warm, no rash - Neurological Exam Neurological: Present: alert, awake, normal cognition - Extremities Exam Extremities: Present: no cyanosis, no clubbing, no edema Comments: Bilateral lower extremity muscular atrophy noted Assessment and Plan (1) Healthcare-associated pneumonia Status: Acute Category: Medical Code(s): J18.9 - Pneumonia, unspecified organism (2) TAURUS (acute kidney injury) Status: Acute Category: Medical Code(s): N17.9 - Acute kidney failure, unspecified (3) Sepsis Status: Acute Qualifiers: Sepsis type: sepsis due to unspecified organism Sepsis acute organ dysfunction status: with acute organ dysfunction Severe sepsis acute organ dysfunction type: acute renal failure Acute renal failure type: unspecified Severe sepsis shock status: without septic shock Qualified Code(s): A41.9 - Sepsis, unspecified organism; R65.20 - Severe sepsis without septic shock; N17.9 - Acute kidney failure, unspecified Category: Medical Code(s): A41.9 - Sepsis, unspecified organism (4) Altered mental status Status: Acute Qualifiers: Altered mental status type: unspecified Qualified Code(s): R41.82 - Altered mental status, unspecified Category: Medical Code(s): R41.82 - Altered mental status, unspecified (5) Pneumonia Status: Acute Qualifiers: Pneumonia type: due to unspecified organism Laterality: unspecified laterality Lung location: unspecified part of lung Qualified Code(s): J18.9 - Pneumonia, unspecified organism Category: Medical Code(s): J18.9 - Pneumonia, unspecified organism (6) CAD (coronary artery disease) Status: Chronic Qualifiers: Coronary Disease-Associated Artery/Lesion type: [place] artery [place] vs. transplanted heart: [place] heart Associated angina: with other forms of angina Qualified Code(s): I25.118 - Atherosclerotic heart disease of [place] coronary artery with other forms of angina pectoris Category: Medical Code(s): I25.10 - Atherosclerotic heart disease of [place] coronary artery without angina pectoris (7) HHD (hypertensive heart disease) Status: Chronic Qualifiers: Heart failure presence: without heart failure Qualified Code(s): I11.9 - Hypertensive heart disease without heart failure Category: Medical Code(s): I11.9 - Hypertensive heart disease without heart failure (8) HLD (hyperlipidemia) Status: Chronic Qualifiers: Hyperlipidemia type: mixed hyperlipidemia Qualified Code(s): E78.2 - Mixed hyperlipidemia Category: Medical Code(s): E78.5 - Hyperlipidemia, unspecified (9) HTN (hypertension) Status: Chronic Qualifiers: Hypertension type: primary hypertension Qualified Code(s): I10 - Essential (primary) hypertension Category: Medical Code(s): I10 - Essential (primary) hypertension (10) Hypothyroidism, unspecified Status: Chronic Qualifiers: Hypothyroidism type: acquired Qualified Code(s): E03.9 - Hypothyroidism, unspecified Category: Medical Code(s): E03.9 - Hypothyroidism, unspecified (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
--- NOTE | 2021-02-13 10:52 | P.DS_ITS ---
General - General Admission date:: 02/08/21 Discharge date: 02/13/21 HPI HPI: Patient is a 60-year-old male, skilled nursing resident, knitted through the emergency room earlier today staff noted fever and altered mental status. Patient's work-up in the ER was as follows - Radiology Data #1 Image(s): Chest Image Reviewed: Yes I reviewed the patient's radiology image, Yes I have reviewed radiologist's interpretation PROCEDURE INFORMATION: Exam: XR Chest Exam date and time: 02/08/2021 10:51 AM Age: 60 years old Clinical indication: Other: AMS, weakness TECHNIQUE: Imaging protocol: XR of the chest. Views: 1 view. COMPARISON: CR XR CHEST PORTABLE 06/01/2020 11:49 AM FINDINGS: Lungs: Unremarkable. No consolidation. Pleural spaces: Unremarkable. No pleural effusion. No pneumothorax. Heart/Mediastinum: The heart is enlarged. Bones/joints: Unremarkable. IMPRESSION: 1. No acute findings. 2. Cardiomegaly. - CT Data CT Scan: Head, Abdomen, Pelvis Time Received: 13:[address] Reviewed: Yes: I have viewed the radiologist's interpretation Findings Narrative: PROCEDURE INFORMATION: Exam: CT Head Without Contrast Exam date and time: 02/08/2021 11:44 AM Age: 60 years old Clinical indication: Altered mental status/memory loss. TECHNIQUE: Imaging protocol: Computed tomography of the head without contrast. Radiation optimization: All CT scans at this facility use at least one of these dose optimization techniques: automated exposure control; mA and/or kV adjustment per patient size (includes targeted exams where dose is matched to clinical indication); or iterative reconstruction. COMPARISON: CT HEAD/BRAIN WO CON 02/23/2020 12:11 PM FINDINGS: Brain: There is low attenuation abnormality in the periventricular white matter consistent with chronic microvascular ischemic changes. There are chronic lacunar infarcts. There is moderate cerebral atrophy. Cerebral ventricles: There is ventriculomegaly, similar to prior study. Paranasal sinuses: Visualized sinuses are unremarkable. No fluid levels. Mastoid air cells: Visualized mastoid air cells are well aerated. Bones/joints: Unremarkable. No acute fracture. Soft tissues: Unremarkable. IMPRESSION: 1. There is low attenuation abnormality in the periventricular white matter consistent with chronic microvascular ischemic changes. If an acute infarct is a clinical concern, follow-up MRI with diffusion imaging is recommended. 2. There are chronic lacunar infarcts. 3. There is ventriculomegaly, similar to prior study. Please correlate with any clinical symptoms of normal pressure hydrocephalus. 4. There is moderate cerebral atrophy. Exam: CT Abdomen And Pelvis Without Contrast Exam date and time: 02/08/2021 11:43 AM COMPARISON: CT ABDOMEN PELVIS WO/W CON 10/19/2020 10:19 AM FINDINGS: Liver: The liver is normal in appearance, without evidence of mass or intrahepatic bile duct dilatation. Gallbladder and bile ducts: The gallbladder is normal appearance, without evidence of gallbladder wall thickening or pericholecystic fluid. Pancreas: The pancreas is normal in appearance, without evidence of mass, cyst, peripancreatic inflammatory change, or pancreatic duct dilatation. Spleen: The spleen is normal in appearance. Adrenal glands: Both adre
--- NOTE | 2021-02-13 13:30 | DIET.NUTRFU ---
Patient continues on MSOFT diet, dependent on staff for meal intake. Meal intake fluctuates 25-50% of most meals. He does like the glucerna, which is provided BID and normally consumed at 100%. Maintaining weight at 84kg. Plans to discharge back to [place] today
[2021-02-13 19:56] LABS: POC Glucose,Bedside 153 (70-110)
== END 2021-02-13 17:25 | DRG 871 ==
LOC: ER 16:09 → 2ND 17:39
PROVIDERS: Internal Medicine Pulmonary Disease; Nurse Practitioner Family; Admitting Provider Family Medicine; Emergency Provider Emergency Medicine; Visit Provider Emergency Medicine
DX: A41.9 Sepsis, unspecified organism (principal); J18.9 Pneumonia, unspecified organism; I42.9 Cardiomyopathy, unspecified; N17.9 Acute kidney failure, unspecified; E87.0 Hyperosmolality and hypernatremia; I50.32 Chronic diastolic (congestive) heart failure; J44.0 Chronic obstructive pulmonary disease with (acute) lower respiratory infection; R65.20 Severe sepsis without septic shock; I25.10 Atherosclerotic heart disease of native coronary artery without angina pectoris; I11.0 Hypertensive heart disease with heart failure; Z79.4 Long term (current) use of insulin; Z87.891 Personal history of nicotine dependence; Z99.81 Dependence on supplemental oxygen; Z20.822 Contact with and (suspected) exposure to COVID-19; E11.51 Type 2 diabetes mellitus with diabetic peripheral angiopathy without gangrene; M81.0 Age-related osteoporosis without current pathological fracture; E03.9 Hypothyroidism, unspecified; Z95.5 Presence of coronary angioplasty implant and graft; N40.0 Benign prostatic hyperplasia without lower urinary tract symptoms; E66.9 Obesity, unspecified; Z68.31 Body mass index [BMI] 31.0-31.9, adult; Z79.84 Long term (current) use of oral hypoglycemic drugs; Y95 Nosocomial condition
CPT/HCPCS: 36415; 70450; 71045; 71250; 71275; 74176; 80048; 80053; 80202; 81001; 82803; 82962; 83605; 83735; 83880; 84443; 84484; 85007; 85025; 87040; 87086; 93005; 94640; 94760; 96365; 96367; 99285; C9803; J0456; J1956; Q9967; U0003; U0005

== ENCOUNTER → 2021-02-19 12:59 | Outpatient (CLI) | payer MEDICARE, MEDICAID, SELFPAY ==
--- NOTE | 2021-02-19 13:43 | MR_ITS ---
FINAL REPORT CLINICAL HISTORY: altered mental status, abnormal ct brain FINDINGS: Multi planar MR imaging was obtained through the brain without contrast. The midline structures appear intact. There is no evidence of Chiari malformation. On T2 and flair axial images there is abnormal signal in the periventricular white matter. There is moderate ventriculomegaly out of proportion to the cortical atrophy. On diffusion-weighted images there is no evidence of restricted diffusion. The visualized paranasal sinuses demonstrate normal signal voids. The seventh and eighth nerve root complexes are intact. IMPRESSION: Atrophy. Moderate ventriculomegaly out of proportion to the cortical atrophy. Cannot exclude an element of communicating hydrocephalus. No acute intracranial abnormality. Reviewed, Interpreted and Dictated by Lm Stallworth MD Transcribed by Lew Escobedo Authenticated by Lm Stallworth MD on 02/19/2021 04:58:46 PM [facility]
== END ==
PROVIDERS: PCP Emergency Medicine; Visit Provider Emergency Medicine
DX: R41.82 Altered mental status, unspecified (principal); Z87.820 Personal history of traumatic brain injury
CPT/HCPCS: 70551

== ENCOUNTER → 2021-02-26 07:24 | Outpatient (CLI) | payer MEDICARE, MEDICAID, SELFPAY ==
--- NOTE | 2021-02-26 07:24 | NM_ITS ---
APPROVED REPORT Exam: Nuclear Stress Test Indication: SOB, Abnormal EKG, HTN, CAD, High cholesterol Patient Location: Outpatient Stress Tech: Lynne Locke [place] Tech:Abigail Pino, ARRT, RT (R)(N) Ht: 5 ft 2 in Wt: 155 lbs HR: 92 bpm BP: 26/69 mmHg BSA: 1.72 m2 BMI: 28.3 History: SOB, Abnormal EKG, HTN, CAD, High cholesterol Procedure: Patient received a 0.4 mg of intravenous Lexiscan, resting heart rate 92 bpm, resting blood pressure 126/69 mmHg, with Lexiscan maximum heart rate achived was 102 bpm which is Less than 85 % of the maximum predicted heart rate and blood pressure was 126/69 mmHg. With Lexiscan, patient denied any complaint of chest pain. Electrocardiogram Resting electrocardiogram showed sinus rhythm, with Lexiscan there is less than 1.[address] segment depression or from the baseline EKG. The EKG portion of the Lexiscan is nondiagnostic. Cardiac Stress and Resting SPECT Images: Cardiac Stress and Resting SPECT images were obtained using technetium 99m Myoview 31.9 mCi stress and 10.80 mCi at rest. Patient unable to lay on stomach for prone images. Gated SPECT analysis of segmental wall motion and calculation of the ejection fraction also done. Cardiac stress and rest SPECT images showed partial reversible defect involving the anterior apical wall, consistent with mixed ischemia and scar, completely dry ejection fraction is 65% with mild anterior apical wall hypokinesis, right ventricle is mildly enlarged with normal contractility. There is transient ischemic dilatation of the left ventricle seen, raising the concerns for presence of multivessel coronary artery disease. Conclusion: 1. The EKG portion of the Lexiscan is nondiagnostic. 2. Scintigraphic evidence of mixed ischemia and scar involving the anterior apical wall, compared to ejection fraction is 65% with segmental wall motion abnormality described above, blood ventricle is mildly enlarged with normal contractility, there is transient ischemic dilatation of the left ventricle seen, raising the concerns of presence of multivessel coronary artery disease. 3. Abnormal Lexiscan Myoview study. Electronically signed by : Jackson Ramírez MD 02/26/2021 12:47:51
--- NOTE | 2021-02-26 09:06 | HMH.ITSHM ---
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 []DULOXETINE VITAMIN B12 BISACODYL ASA ALBUTEROL ABILIFY TRAMADOL TAMSULOSIN SPIRONOLACTONE METFORMIN LOSARTAN LORATADINE TRAZODONE LEVOFLOXACIN ISOSORBIDE GUAIFENSIN GABAPENTIN FUROSEMIDE FOLIC ACID ATORVASTATIN SPIRIVA OMEPRAZOLE OLOPATADINE LOPERAMIDE LINAGLIPTIN LEVOTHYROXINE INSULIN
--- NOTE | 2021-02-26 09:42 | CA_ITS ---
APPROVED REPORT Exam: Pharmacologic Technologist: Lynne Locke, Ht: 5 ft 4 in HR: 94 bpm BP: 126/69 mmHg Medical History Medications: Omeprazole,,,,, Isosorbide,,,,, Aspirin,,,,, Metformin,,,,, Gabapentin,,,,, Flomax,,,,, INSULIN,,,,, Lipitor,,,,, Tramadol,,,,, CoZAAR,,,,, SpirOnolactone,,,,, Trazodone,,,,, Stress Test Details Test: LEXISCAN HR Resting HR: 92 bpm Max Heart Rate (APMHR): 158.363471 bpm Max HR Achieved: 102 bpm Target HR (85% APMHR): 134.566132 bpm % of APMHR: 64.56 Recovery HR: 93 bpm BP Resting BP: 126/69 mmHg Max BP: 126/69 mmHg Recovery BP: 119.0/66.0 mmHg ECG Resting ECG: NSR Clinical Reason for Termination: Completed Protocol Exercise duration: 04:01 min Highest Stage Achieved: Exercise capacity: 1.0 METs Stress ECG Conclusion Symptoms: None Arrhythmias/Ectopy: None ST-T Changes: <1.5mm ST Segment changes Conclusion: Non-Diagnostic Electronically signed by : Jackson Ramírez MD 02/26/2021 12:39:07
== END ==
PROVIDERS: PCP Emergency Medicine; Visit Provider Nurse Practitioner Family
DX: E66.09 Other obesity due to excess calories (principal); E78.2 Mixed hyperlipidemia; I11.9 Hypertensive heart disease without heart failure; I25.10 Atherosclerotic heart disease of native coronary artery without angina pectoris; I73.9 Peripheral vascular disease, unspecified; I77.1 Stricture of artery; N28.9 Disorder of kidney and ureter, unspecified; R06.02 Shortness of breath; R07.89 Other chest pain; R60.9 Edema, unspecified
CPT/HCPCS: 78452; 93017; A9502; J2785

== ENCOUNTER → 2021-03-07 02:12 | Outpatient (CLI) | payer MEDICARE, MEDICAID, SELFPAY ==
[2021-03-07 03:12] LABS: Basophils # 0.1 K/mm3 (0-0.2); Basophils % 0.9 % (0.1-2.0); Eosinophils # 0.4 K/mm3 (0.0-0.4); Eosinophils % 2.6 % (0.1-12.0); Hemoglobin 9.7 g/dL (14.1-18.0); Lymphocytes # 2.2 K/mm3 (0.7-4.5); Lymphocytes % 15.9 % (10-50); Mean Corpuscular HGB Conc 30.3 g/dL (31.8-35.4); Mean Corpuscular Hemoglobin 32.3 pg (27.0-31.2); Mean Corpuscular Volume 106.5 fl (80-94); Monocytes # 0.9 K/mm3 (0.1-1.0); Monocytes % 6.6 % (1.7-9.3); Neutrophils # 10.4 K/mm3 (1.8-7.8); Platelet Count 409 K/mm3 (142-424); Red Blood Count 3.01 M/mm3 (4.60-6.20); Red Cell Distribution Width 16.4 % (11.5-17.5)
[2021-03-07 03:13] LABS: Chloride 101 mmol/L (98-107); Sodium 133 mmol/L (136-145)
[2021-03-07 03:16] LABS: Blood Urea Nitrogen 7 mg/dl (9-20)
[2021-03-07 03:17] LABS: Calcium 8.7 mg/dl (8.4-10.2); Carbon Dioxide 33 mmol/L (22.0-30.0); Estimated Glomerular Filt Rate 98 ml/min (>60); GFR (African American) 119 ML/MIN (>60); Glucose 97 mg/dl (74-100)
== END ==
PROVIDERS: Visit Provider Emergency Medicine
DX: Z20.822 Contact with and (suspected) exposure to COVID-19 (principal)
CPT/HCPCS: 80048; 85025; C9803; U0003; U0005

== ENCOUNTER → 2021-03-07 02:20 | Outpatient (CLI) | payer MEDICARE, MEDICAID, SELFPAY | PROVIDERS: Visit Provider Emergency Medicine | DX: Z20.822 Contact with and (suspected) exposure to COVID-19 (principal) ==

== ENCOUNTER 2021-03-09 07:27 | Day surgery (SDC) | payer MEDICARE, MEDICAID, SELFPAY ==
[2021-03-09] VITALS (12 sets, daily range): BP systolic 124–169; BP diastolic 71–93; PULSE 88–105; RESP 13–21; O2SAT 90–100; BMI 29.2
--- NOTE | 2021-03-09 07:04 | IR_ITS ---
APPROVED REPORT Patient Location: Outpatient Upholsterer Apprentice: JUAN ANTONIO Manriquez RT (R) PROCEDURES Left heart catheterization Left ventriculogram Selective coronary angiogram Informed consent was obtained prior to the procedure. COMPLICATIONS None Estimated Blood Loss: Less than 10 mls TECHNIQUE One percent lidocaine used to anesthetize the right anterior aspect of the wrist. The right radial artery was accessed via the Seldinger technique. A 6 Armenian sheath was placed in the right radial artery. 2.5 mg of verapamil, 800 mcg of nitroglycerin, 1mg Lidocaine and 5000 U Heparin were given through the arterial sheath. The Poppa catheter was also used to perform left heart catheterization, left ventriculogram and selective coronary angiogram. At the end of the procedure the sheath was removed good hemostasis was achieved using Traclet band, patient was transferred to the postop holding area in stable condition. ANGIOGRAPHIC RESULTS The left main artery Normal The left anterior descending artery Has a stent in the proximal segment which is widely patent free of in-stent restenosis with excellent proximal distal transitioning with remaining LAD having mild 10% luminal regularities The circumflex artery Nondominant mild 10% luminal irregularities The right coronary artery Is a large dominant vessel has proximal 10 to 20% stenoses with a mid vessel 30% stenosis and distal 20% stenoses The ECHEVARRIA ventriculogram reveals Preserved at 60% The left ventricular end-diastolic pressure Severe to critically elevated at 40 to 45 mmHg IMPRESSION Widely patent coronary arteries as described above Severe to critically elevated LVEDP consistent with diastolic dysfunction Normal ejection fraction PLAN 1. Treatment of diastolic dysfunction which is the etiology for patient's angina 2. Standard therapy for ischemic heart disease Electronically signed by : King Nina MD 03/09/2021 10:36:55
--- NOTE | 2021-03-09 08:46 | XR_ITS ---
FINAL REPORT CLINICAL HISTORY: R/O PNEUMONIA COMPARISON: 03/14/2020 FINDINGS: SINGLE VIEW CHEST The heart is normal in size. The mediastinum is unremarkable. The lungs are clear. There is no pneumothorax. IMPRESSION: No acute cardiopulmonary process. Reviewed, Interpreted and Dictated by Finesse Matta III, MD Transcribed by Yarelis Chappell Authenticated by Finesse Matta III, MD on 03/09/2021 10:32:37 AM [facility]
== END 2021-03-09 13:25 ==
LOC: CATHLAB 07:31
PROVIDERS: PCP Emergency Medicine; Visit Provider Internal Medicine
DX: E78.2 Mixed hyperlipidemia (principal); I11.0 Hypertensive heart disease with heart failure; I25.118 Atherosclerotic heart disease of native coronary artery with other forms of angina pectoris; I50.42 Chronic combined systolic (congestive) and diastolic (congestive) heart failure; I70.203 Unspecified atherosclerosis of native arteries of extremities, bilateral legs; N28.9 Disorder of kidney and ureter, unspecified; R06.02 Shortness of breath; R94.30 Abnormal result of cardiovascular function study, unspecified; E11.9 Type 2 diabetes mellitus without complications; Z79.899 Other long term (current) drug therapy; Z79.4 Long term (current) use of insulin; Z99.81 Dependence on supplemental oxygen; I42.9 Cardiomyopathy, unspecified; F25.9 Schizoaffective disorder, unspecified; Z88.5 Allergy status to narcotic agent
CPT/HCPCS: 71045; 93458; 99152; C1725; C1769; J1644; Q9967

== ENCOUNTER → 2021-06-04 13:07 | Outpatient (CLI) | payer MEDICARE, MEDICAID, SELFPAY ==
--- NOTE | 2021-06-04 13:11 | CA_ITS ---
APPROVED REPORT EXAM: Comprehensive 2D, Doppler, and color-flow Echocardiogram Senior Investment Manager: LION Wooten, RVS Ht: 5 ft 3 in Wt: 187lbs BSA: 1.88 BP: 134/72 mmHg Indications: SOA, CHF, COPD, wheelchair bound, Class II obesity Echo Enhancing Agent Comments: Technically limited exam patient scanned upright in wheelchair, extreme chest circumference. 2D Dimensions IVSd 1.03 cm LVEF (Visual) 73.80 % PWd 1.09 cm LA Volume 29.00 mL LVDd 5.06 cm LA Volume Index 15.40 mL/m2 (M/F) 16-34 LVDs 2.89 cm Aortic Root 3.32 cm LVOT 1.93 cm (M/F) 1.5-2.5 M-Mode Dimensions LA Diam 3.24 cm (1.9-4.0) Ao Diam 3.74 cm (2.0-3.7) EPSs 0.38 cm TAPSE 2.83 (<1.7) LV Diastology E Decel Time 180.00 (160-240 msec) E/A Ratio 0.77 MED E' 4.90 (< 7 cm/sec) MED A' 9.80 cm/s E'/MED E' Ratio 12.06 (>14) LAT E' 4.00 (<10 cm/sec) LAT A' 9.20 cm/s E/LAT E' Ratio 14.77 (>14) Aortic Valve LVOT Max 99.00 (70-110 cm/s) LVOT VTI 15.31 cm AoV Peak Antoine. 121.00 (50-130 cm/s) AO Peak GR. 5.90 mmHg AO Mean GR. 3.00 (<5 mmHg) AO VTI 19.18 (18-25 cm) RASHEED (VTI) 2.34 (2.5-4.5 cm2) Mitral Valve MV A Velocity 76.00 (40-130 cm/s) E/A Ratio 0.77 MV Decel. Time 180.00 (160-240 ms) MV Mean Gr. 1.20 (<2mmHg) Pulmonary Valve PV Peak Velocity 105.00 (50-150 cm/s) Tricuspid Valve TR P. Velocity 110.00 cm/s RAP Estimate 10.00 mmHg RVSP 14.90 mmHg Left Ventricle Left atrium is mildly enlarged, left ventricle is normal size, mild concentric left ventricular hypertrophy, estimated ejection fraction 55% with no regional wall motion abnormality, Doppler evidence of impaired LV relaxation seen. Right Ventricle Right atrium and right ventricle are mildly enlarged with normal contractility. Aortic Valve Aortic valve is minimally thickened and fibrosed, there is no aortic stenosis or aortic insufficiency. Mitral Valve Mitral valve is grossly normal, there is trace mitral regurgitation. Tricuspid Valve Tricuspid valve is grossly normal, there is trace tricuspid regurgitation, tricuspid regurgitation jet velocity is inadequate for calculation of the right ventricular systolic pressure. Pulmonic Valve Pulmonic valve is poorly visualized. Great Vessels Aortic root is normal size. Inferior vena cava is poorly visualized. Pericardium No significant pericardial effusion noted. Conclusion 1. Technically difficult study because of the patient factors and poor acoustic windows. 2. Normal left ventricular size, preserved left ventricular systolic function, estimated ejection fraction 55% with no regional wall motion abnormality, Doppler evidence of impaired LV relaxation seen. 3. Mildly enlarged right ventricle with normal contractility. 4. Trace mitral and tricuspid regurgitation. 5. No significant pericardial effusion noted. 6. Inferior vena cava is poorly visualized. Electronically signed by : Jackson Ramírez MD 06/04/2021 21:39:07
== END ==
PROVIDERS: PCP Emergency Medicine; Visit Provider Internal Medicine
DX: R06.02 Shortness of breath (principal)
CPT/HCPCS: 93306

== ENCOUNTER 2021-09-13 00:36 | Emergency (ER) | payer MEDICARE, MEDICAID, SELFPAY ==
[2021-09-13] VITALS (8 sets, daily range): BP systolic 105–125; BP diastolic 59–84; PULSE 83–96; RESP 10–26; TEMP 36.8–37.2; O2SAT 90–94; BMI 43.9
--- NOTE | 2021-09-13 00:33 | ECG_ITS ---
APPROVED REPORT Exam: Resting ECG HR:92 bpm ECG Measurements Heart Rate 92 AXES OR 164 P 43 QRSd 88 QRS 82 QT 332 T 67 QTc 381 Conclusion SINUS RHYTHM NORMAL ECG UNCONFIRMED REPORT Electronically signed by : Fritz Acosta MD 09/13/2021 21:05:41
--- NOTE | 2021-09-13 00:49 | XR_ITS ---
PROCEDURE INFORMATION: Exam: XR Chest Exam date and time: 09/13/2021 1:46 AM Age: 60 years old Clinical indication: Sternal or substernal pain; Additional info: Cp TECHNIQUE: Imaging protocol: Radiologic exam of the chest. Views: 1 view. COMPARISON: CR XR CHEST PORTABLE 03/09/2021 9:01 AM FINDINGS: Lungs: No focal consolidation. Pleural spaces: No pleural effusion. No pneumothorax. Heart/Mediastinum: Stable cardiomediastinal silhouette. Bones/joints: No acute osseous findings. IMPRESSION: No focal consolidation.
[2021-09-13 00:55] LABS: Coronavirus 19, PCR Not Detected (NotDetected); Influenza A, PCR Not Detected (NotDetected); Influenza B, PCR Not Detected (NotDetected)
[2021-09-13 00:57] LABS: Basophils # 0.1 K/mm3 (0-0.2); Basophils % 0.7 % (0.1-2.0); Eosinophils # 0.5 K/mm3 (0.0-0.4); Eosinophils % 3.4 % (0.1-12.0); Hematocrit 37.5 % (42.0-52.0); Hemoglobin 11.6 g/dL (14.1-18.0); Lymphocytes # 2.1 K/mm3 (0.7-4.5); Mean Corpuscular HGB Conc 30.9 g/dL (31.8-35.4); Mean Corpuscular Hemoglobin 31.5 pg (27.0-31.2); Mean Corpuscular Volume 101.8 fl (80-94); Mean Platelet Volume 8.2 fl (7.4-10.4); Monocytes # 0.8 K/mm3 (0.1-1.0); Monocytes % 6.2 % (1.7-9.3); Neutrophils # 9.6 K/mm3 (1.8-7.8); Neutrophils % 73.7 % (37.0-80.0); Platelet Count 348 K/mm3 (142-424); Red Blood Count 3.69 M/mm3 (4.60-6.20); Red Cell Distribution Width 15.7 % (11.5-17.5); White Blood Count 13.1 K/mm3 (4.8-10.8)
[2021-09-13 01:01] LABS: Chloride 99 mmol/L (98-107); Potassium 3.9 mmoL/L (3.5-5.1); Sodium 136 mmol/L (136-145)
[2021-09-13 01:03] LABS: Blood Urea Nitrogen 12 mg/dl (9-20); Creatinine Clearance Estimated 59 mL/min (50-200); Estimated Glomerular Filt Rate 76 ml/min (>60); GFR (African American) 92 ML/MIN (>60)
[2021-09-13 01:04] LABS: Alanine Aminotransferase 28 U/L (12-78); Albumin/Globulin Ratio 1.1 (1.1-1.8); Alkaline Phosphatase 106 U/L (38-126); Anion Gap 12.9 mEq/L (5-15); Aspartate Amino Transferase 29 U/L (17-59); Bilirubin,Total 0.5 mg/dl (0.2-1.3); Calcium 8.9 mg/dl (8.4-10.2); Carbon Dioxide 28 mmol/L (22.0-30.0); Globulin 3.8 g/dL (1.3-3.2); Glucose 200 mg/dl (74-100); Total Protein,Serum 7.8 g/dl (6.3-8.2)
[2021-09-13 01:13] LABS: NT Pro Brain Natriuretic Pep. 17.3 pg/mL (0-125)
[2021-09-13 01:18] LABS: Troponin I < 0.01 ng/ml (0.00-0.034)
--- NOTE | 2021-09-13 01:20 | HMH.EDGENADL ---
ED Disposition Clinical Impression: Chest pain Disposition: Home, Self-Care Condition on Discharge: Good Additional Instructions: At this time was felt you are safe to be discharged home. If new or worsening symptoms please do not hesitate to return the emergency department. Please follow-up routinely with your family doctor. Referrals: Roney Travis MD [Primary Care Provider] - - Critical Care Critical Care Time: No Attestation: On 09/13/21, the high probability of a clinically significant, sudden or life threatening deterioration of the following system(s) required my full and direct attention, intervention and personal management. The time I documented below is in addition to time spent performing reported procedures but includes the following listed in this critical care notation. Medical Decision Making - Gaudencio Inquiry Pt receiving controlled substance: No Vital Signs: 09/13/21 00:36 09/13/21 01:04 09/13/21 01:34 Temperature 98.9 F Temperature Source Oral Pulse Rate 96 H 94 H Pulse Rate [Apical] 90 Respiratory Rate 18 19 10 L Blood Pressure 105/60 L 113/59 L Blood Pressure [Right Arm] 106/59 L Blood Pressure Mean [Right Arm] 74 Blood Pressure Source [Right Arm] Automatic Cuff Blood Pressure Position [Right Arm] Sitting 02 Sat by Pulse Oximetry 91 L 90 L 90 L Oxygen Delivery Method Room Air Room Air Room Air 09/13/21 02:34 09/13/21 03:04 09/13/21 03:30 Temperature Temperature Source Pulse Rate 85 83 88 Pulse Rate [Apical] Respiratory Rate 26 H 18 19 Blood Pressure 105/70 L 119/71 125/84 Blood Pressure [Right Arm] Blood Pressure Mean [Right Arm] Blood Pressure Source [Right Arm] Blood Pressure Position [Right Arm] 02 Sat by Pulse Oximetry 92 L 91 L 91 L Oxygen Delivery Method Room Air Room Air Room Air - Lab Data Lab results reviewed: Yes: I reviewed the patient's lab results. Lab Results 09/13/21 00:50: WBC 13.1 H, RBC 3.69 L, Hgb 11.6 L, Hct 37.5 L, MCV 101.8 H, MCH 31.5 H, MCHC 30.9 L, RDW 15.7, Plt Count 348, MPV 8.2, Neut % (Auto) 73.7, Lymph % (Auto) 16.0, Dale % (Auto) 6.2, Eos % (Auto) 3.4, Baso % (Auto) 0.7, Neut # (Auto) 9.6 H, Lymph # (Auto) 2.1, Dale # (Auto) 0.8, Eos # (Auto) 0.5 H, Baso # (Auto) 0.1 09/13/21 00:50: Sodium 136, Potassium 3.9, Chloride 99, Carbon Dioxide 28, Anion Gap 12.9, BUN 12, Creatinine 1.00, Estimated Creat Clear 59, Estimated GFR 76, Est GFR ( Amer) 92, Glucose 200 H, Calcium 8.9, Total Bilirubin 0.5, AST 29, ALT 28, Alkaline Phosphatase 106, Troponin I < 0.01, NT-Pro-B Natriuret Pep 17.3, Total Protein 7.8, Albumin 4.0, Globulin 3.8 H, Albumin/Globulin Ratio 1.1 09/13/21 00:50: SARS-CoV-2 (PCR) Not detected, Influenza A Untype (PCR) Not detected, Influenza Type B (PCR) Not detected 09/13/21 00:50: D-Dimer 0.77 H 09/13/21 03:33: Troponin I < 0.01 09/13/21 03:56: Specimen Source Left radial, O2 % 21, ABG pH 7.37, ABG pCO2 48.2 H, ABG pO2 76.2 L, ABG HCO3 27.0 H, ABG Total CO2 28.5 H, ABG O2 Saturation 95, ABG Base Excess 1.6, Edmar Test Acceptable Result diagrams: 09/13/21 00:50 09/13/21 00:50 Orders (Tests/Meds): ED MEDICATIONS Generic Name Dose Route Start Last Admin Trade Name Freq PRN Reason Stop Dose Admin Sodium Chloride 1,000 mls @ 999 mls/hr 09/13/21 01:00 09/13/21 00:51 Sod Chlor 0.9% 1000ml Bag IV 09/13/21 02:00 999 mls/hr .Q1H1M ANSON Administration Discontinued Medications Generic Name Dose Route Start Last Admin Trade Name Freq PRN Reason Stop Dose Admin Aspirin 324 mg 09/13/21 00:50 09/13/21 00:51 Aspirin 81mg Chewable Tablet PO 09/13/21 00:51 324 mg ONCE ONE Administration Iopamidol 75 ml 09/13/21 02:25 09/13/21 02:28 Iopamidol-370 (76%);100ml Bottle IV 09/13/21 02:26 75 ml ONCE ONE Administration Nitroglycerin 0.4 mg 09/13/21 00:50 09/13/21 00:51 Nitroglycerin 0.4mg Sl Tablet SL 09/13/21 00:51 0.4 mg ONCE ONE Administration Sodium C
--- NOTE | 2021-09-13 01:36 | PC.NURSE ---
RAD at BS for XRAY
[2021-09-13 01:43] LABS: D-Dimer 0.77 ug/mL (0.0-0.5)
--- NOTE | 2021-09-13 01:46 | CT_ITS ---
PROCEDURE INFORMATION: Exam: CTA Chest With Contrast Exam date and time: 09/13/2021 2:09 AM Age: 60 years old Clinical indication: Abnormal findings; Abnormal diagnostic tests; Elevated d-dimer; Additional info: Acute onset chest pain, elevated d-dimer TECHNIQUE: Imaging protocol: Computed tomographic angiography of the chest with contrast. 3D rendering (Not supervised by radiologist): MIP and/or 3D reconstructed images were created by the technologist. Radiation optimization: All CT scans at this facility use at least one of these dose optimization techniques: automated exposure control; mA and/or kV adjustment per patient size (includes targeted exams where dose is matched to clinical indication); or iterative reconstruction. Contrast material: ISOVUE; Contrast volume: 75 ml; Contrast route: INTRAVENOUS (IV); COMPARISON: CT ANGIO CHEST PE PROTOCOL 02/11/2021 10:50 PM FINDINGS: Pulmonary arteries: The study is technically limited secondary to respiratory motion artifact and/or suboptimal timing of the bolus without definite evidence of major pulmonary embolism. Aorta: No thoracic aortic aneurysm. Lungs: Nonspecific bibasilar opacities, favoring atelectasis or pneumonia. Pleural spaces: No pneumothorax. No pleural effusion. Heart: Coronary artery disease. No pericardial effusion. Lymph nodes: No axillary or significant intrathoracic lymphadenopathy by size criteria. Spleen: Few calcified granulomas in the spleen. Bones/joints: No acute fracture. Soft tissues: No discreet soft tissue mass. IMPRESSION: 1. Limited study without evidence of major pulmonary embolism. 2. Nonspecific bibasilar opacities, favoring atelectasis or pneumonia. Recommend imaging follow-up until complete resolution.
--- NOTE | 2021-09-13 02:14 | PC.NURSE ---
PT ASSISTED IN CT WITH MOVING FROM BED TO CT TABLE. IV INITIATED PER ROBERT RT REQUEST. PT TOLERATED WELL.
--- NOTE | 2021-09-13 03:48 | PC.NURSE ---
RT at to obtain ABG
[2021-09-13 04:03] LABS: ABG Base Excess 1.6 mmol/L (-2.4-2.3); ABG Oxygen Saturation 95 % (90-100); ABG PCO2 48.2 mmhg (35.0-45.0); ABG PH 7.37 mmol/L (7.35-7.45); ABG PO2 76.2 mmhg (80-100); ABG TCO2 28.5 mmhg (23-27)
[2021-09-13 04:04] LABS: Allen's Test Acceptable; Oxygen 21 %; Source Left Radial
[2021-09-13 04:45] LABS: Troponin I < 0.01 ng/ml (0.00-0.034)
--- NOTE | 2021-09-13 05:35 | ECG_ITS ---
APPROVED REPORT Exam: Resting ECG HR:82 bpm ECG Measurements Heart Rate 82 AXES OR 169 P 60 QRSd 97 QRS 82 QT 368 T 72 QTc 406 Conclusion SINUS RHYTHM NORMAL ECG UNCONFIRMED REPORT Electronically signed by : Fritz Acosta MD 09/13/2021 21:05:36
--- NOTE | 2021-09-13 05:47 | PC.NURSE ---
Gave report to Allie cueto [place]. Pending transfer from [place].
== END 2021-09-13 06:42 | disposition home or self-care (01) ==
PROVIDERS: Emergency Provider Emergency Medicine; PCP Emergency Medicine
DX: R07.9 Chest pain, unspecified (principal); Z86.79 Personal history of other diseases of the circulatory system; I25.10 Atherosclerotic heart disease of native coronary artery without angina pectoris; G47.33 Obstructive sleep apnea (adult) (pediatric); Z79.82 Long term (current) use of aspirin; Z79.899 Other long term (current) drug therapy; Z79.84 Long term (current) use of oral hypoglycemic drugs; Z79.4 Long term (current) use of insulin; J44.9 Chronic obstructive pulmonary disease, unspecified; E11.9 Type 2 diabetes mellitus without complications; Z99.81 Dependence on supplemental oxygen; I10 Essential (primary) hypertension; E78.5 Hyperlipidemia, unspecified; M81.0 Age-related osteoporosis without current pathological fracture
CPT/HCPCS: 71045; 71275; 80053; 82803; 83880; 84484; 85025; 85378; 93005; 96365; 99284; C9803; Q9967; U0003; U0005

== ENCOUNTER → 2021-10-04 19:57 | Outpatient (CLI) | payer MEDICARE, MEDICAID, SELFPAY | PROVIDERS: PCP Emergency Medicine; Visit Provider Specialist | DX: G47.31 Primary central sleep apnea; R09.02 Hypoxemia; I50.42 Chronic combined systolic (congestive) and diastolic (congestive) heart failure; Z99.81 Dependence on supplemental oxygen | CPT/HCPCS: 95811 ==

== ENCOUNTER → 2022-01-24 13:06 | Outpatient (CLI) | payer MEDICARE, MEDICAID, SELFPAY ==
--- NOTE | 2022-01-24 13:06 | MR_ITS ---
FINAL REPORT CLINICAL HISTORY: Back pain, leg weakness FINDINGS: Multiplanar MR imaging of the lumbar spine was performed without contrast. On the sagittal T2-weighted images, disc degeneration is seen at multiple levels. The vertebral alignment is normal. There is no evidence of fracture. No bony mass is identified. The conus has an unremarkable appearance. No significant canal stenosis is identified. T11-12: An annular bulge is present. No significant central canal stenosis or neural foraminal narrowing. T12-L1: An annular bulge is present. No significant canal stenosis or neural foraminal narrowing. L1-2: No significant central canal stenosis or neuroforaminal narrowing. L2-3: No significant central canal stenosis or neuroforaminal narrowing. L3-4: An annular bulge is present. No significant central canal stenosis or neuroforaminal narrowing. L4-5: An annular bulge and facet arthropathy are present. There is a left posterolateral annular tear. There is no significant canal stenosis or neural foraminal narrowing. L5-S1: An annular bulge and facet arthropathy are present. There is mild left neural foraminal narrowing. IMPRESSION: Multilevel degenerative disc disease and spondylosis. Posterolateral annular tear at L4-5. Reviewed, Interpreted and Dictated by Finesse Matta III, MD Transcribed by Yarelis Chappell Authenticated and . [facility]
--- NOTE | 2022-01-24 13:19 | XR_ITS ---
FINAL REPORT CLINICAL HISTORY: Leg weakness, back pain FINDINGS: LUMBAR SPINE Four views demonstrate no acute fracture. There are mild degenerative changes with small osteophytes. There is no malalignment. IMPRESSION: No acute process. Reviewed, Interpreted and Dictated by Finesse Matta III, MD Transcribed by Yarelis Chappell Authenticated and [facility]
== END ==
PROVIDERS: PCP Emergency Medicine; Visit Provider Specialist
DX: M54.9 Dorsalgia, unspecified (principal); R29.898 Other symptoms and signs involving the musculoskeletal system; M54.50 Low back pain, unspecified
CPT/HCPCS: 72100; 72148; 76376

== ENCOUNTER → 2022-05-23 10:03 | Outpatient (CLI) | payer MEDICARE, MEDICAID, SELFPAY ==
[2022-05-23 11:10] LABS: Basophils # 0.1 K/mm3 (0-0.2); Basophils % 0.5 % (0.1-2.0); Eosinophils # 0.3 K/mm3 (0.0-0.4); Eosinophils % 2.2 % (0.1-12.0); Hematocrit 44.5 % (42.0-52.0); Hemoglobin 13.6 g/dL (14.1-18.0); Lymphocytes # 1.5 K/mm3 (0.7-4.5); Lymphocytes % 11.6 % (10-50); Mean Corpuscular HGB Conc 30.5 g/dL (31.8-35.4); Mean Corpuscular Hemoglobin 31.7 pg (27.0-31.2); Mean Corpuscular Volume 104.1 fl (80-94); Mean Platelet Volume 7.6 fl (7.4-10.4); Monocytes # 0.9 K/mm3 (0.1-1.0); Monocytes % 6.9 % (1.7-9.3); Neutrophils # 10.2 K/mm3 (1.8-7.8); Neutrophils % 78.9 % (37.0-80.0); Platelet Count 282 K/mm3 (142-424); Red Blood Count 4.28 M/mm3 (4.60-6.20)
[2022-05-23 11:43] LABS: Creatine Kinase 139 U/L (55-170)
[2022-05-23 11:45] LABS: Alanine Aminotransferase 33 U/L (12-78); Albumin Level 4.1 g/dl (3.5-5.0); Alkaline Phosphatase 113 U/L (38-126); Anion Gap 16.1 mEq/L (5-15); Aspartate Amino Transferase 36 U/L (17-59); Bilirubin,Indirect 0.5 mg/dL (0.0-0.9); Bilirubin,Total 0.5 mg/dl (0.2-1.3); Bilirubin,Unconjugated 0.5 mg/dL (0.0-1.1); Blood Urea Nitrogen 11 mg/dl (9-20); Calcium 8.8 mg/dl (8.4-10.2); Carbon Dioxide 30 mmol/L (22.0-30.0); Chloride 92 mmol/L (98-107); Chol/HDL Ratio 3.5 (1-3.5); Cholesterol 148 mg/dl (140-200); Estimated Glomerular Filt Rate 85 ml/min (>60); GFR (African American) 103 ML/MIN (>60); Glucose 171 mg/dl (74-100); HDL Cholesterol 42 mg/dl (40-60); Potassium 4.1 mmoL/L (3.5-5.1); Sodium 134 mmol/L (136-145); Total Protein,Serum 7.6 g/dl (6.3-8.2); Triglycerides 351 mg/dl (30-150); VLDL Cholesterol 70 mg/dL (0-40)
[2022-05-23 11:56] LABS: Direct LDL Cholesterol 60.81 mg/dL (100-129)
[2022-05-23 12:15] LABS: Thyroid Stimulating Hormone 1.21 uIU/mL (0.465-4.68)
[2022-05-23 12:50] LABS: Vitamin B12 923 pg/mL (239-931)
[2022-05-23 12:53] LABS: Folate > 20.00 ng/mL
[2022-05-24 14:12] LABS: Aldolase 6.2 U/L (3.3-10.3)
== END ==
PROVIDERS: Specialist; PCP Emergency Medicine; Visit Provider Nurse Practitioner
DX: R06.02 Shortness of breath; I25.118 Atherosclerotic heart disease of native coronary artery with other forms of angina pectoris; I11.0 Hypertensive heart disease with heart failure; I50.42 Chronic combined systolic (congestive) and diastolic (congestive) heart failure; R29.898 Other symptoms and signs involving the musculoskeletal system; R53.1 Weakness; E11.9 Type 2 diabetes mellitus without complications; E78.2 Mixed hyperlipidemia; I77.4 Celiac artery compression syndrome; N28.9 Disorder of kidney and ureter, unspecified; Z79.4 Long term (current) use of insulin
CPT/HCPCS: 36415; 80048; 80061; 80076; 82085; 82550; 82607; 82746; 84443; 85025

== ENCOUNTER 2023-01-08 08:49 | Inpatient (IN) | payer MEDICARE, MEDICAID, SELFPAY ==
[2023-01-08] VITALS (15 sets, daily range): BP systolic 108–137; BP diastolic 66–93; PULSE 80–100; RESP 18–26; TEMP 36.8–37.2; O2SAT 91–97; BMI 38.8; BMI 33.3
--- NOTE | 2023-01-08 08:21 | ECG_ITS ---
APPROVED REPORT Exam: Resting ECG HR:100 bpm ECG Measurements Heart Rate 100 AXES NE 160 P 23 QRSd 95 QRS 85 QT 300 T 30 QTc 357 Conclusion SINUS TACHYCARDIA NONSPECIFIC T-WAVE ABNORMALITY ABNORMAL RHYTHM ECG UNCONFIRMED REPORT Electronically signed by : Fritz Acosta MD 01/08/2023 17:10:46
--- NOTE | 2023-01-08 08:37 | CT_ITS ---
FINAL REPORT CLINICAL HISTORY: collapsed at breakfast, now GCS 6, stroke protocol COMPARISON: 02/19/2021 FINDINGS: Axial images of the head were obtained without contrast. Coronal reformatted images were also obtained. This study was performed with techniques to keep radiation doses as low as reasonably achievable (ALARA). Individualized dose reduction techniques using automated exposure control or adjustment of mA and/or kV according to the patient's size were employed. There is generalized age-appropriate atrophy. Periventricular low-attenuation areas are seen consistent with mild chronic ischemic changes. There is moderate ventriculomegaly which is stable. There is no evidence of intracranial hemorrhage or mass. There are several chronic lacunar infarcts. There is no evidence of acute infarct. There is no evidence of shift of the midline structures. No skull abnormality is seen on the bone window images. IMPRESSION: Atrophy and mild periventricular chronic ischemic changes. No acute intracranial abnormality identified. Reviewed, Interpreted and Dictated by Finesse Matta III, MD Transcribed by Yarelis Chappell Authenticated and [facility]
--- NOTE | 2023-01-08 08:37 | CT_ITS ---
FINAL REPORT TECHNIQUE: Thin section axial CT with IV contrast supplemented with multiplanar reconstruction under CT angiogram protocol. This study was performed with techniques to keep radiation doses as low as reasonably achievable (ALARA). Individualized dose reduction techniques using automated exposure control or adjustment of mA and/or kV according to the patient''s size were employed. NASCET criteria was utilized during interpretation. CLINICAL HISTORY: collapsed at breakfast, now GCS 6, stroke protocol FINDINGS: Aortic arch: Arch shows no significant narrowing. Great vessel origins are widely patent. Right carotid: There is calcified plaque at the carotid bulb without stenosis. The more distal ICA is patent. Left carotid: There is calcified plaque of the carotid bulb without stenosis. The more distal ICA is patent. Vertebral: Right vertebral artery is dominant. No significant stenosis is present. IMPRESSION: Calcified plaque at the carotid bulbs bilaterally without stenosis. Reviewed, Interpreted and Dictated by Finesse Matta III, MD Transcribed by Yarelis Chappell Authenticated and [facility]
--- NOTE | 2023-01-08 08:37 | CT_ITS ---
FINAL REPORT CLINICAL HISTORY: collapsed at breakfast, apneic, now GCS 6 COMPARISON: 09/13/2021 FINDINGS: Thin section axial CT images of the chest were obtained with contrast. 3D reformatted images were also obtained. This study was performed with techniques to keep radiation doses as low as reasonably achievable (ALARA). Individualized dose reduction techniques using automated exposure control or adjustment of mA and/or kV according to the patient's size were employed. The smaller lower lobe branches are suboptimally visualized secondary to motion artifact. There is no evidence of pulmonary embolism. There is no evidence of thoracic aortic aneurysm or dissection. There is no evidence of mediastinal or hilar mass or adenopathy. There is no evidence of pulmonary mass or nodule. There is mild bibasilar atelectasis. Limited images of the upper abdomen demonstrate a partially imaged probable cyst in the right kidney. IMPRESSION: No evidence of pulmonary embolism. Mild bibasilar atelectasis. Reviewed, Interpreted and Dictated by Finesse Matta III, MD Transcribed by Faith Wolfe Authenticated and . [facility]
--- NOTE | 2023-01-08 08:37 | CT_ITS ---
FINAL REPORT TECHNIQUE: Thin section axial CT with IV contrast supplemented with multiplanar reconstruction under CT angiogram protocol. 3-D reconstructions were performed. This study was performed with techniques to keep radiation doses as low as reasonably achievable (ALARA). Individualized dose reduction techniques using automated exposure control or adjustment of mA and/or kV according to the patient''s size were employed. CLINICAL HISTORY: collapsed at breakfast, now GCS 6, stroke protocol FINDINGS: The distal vertebral, basilar and distal internal carotid arteries have an unremarkable appearance. No aneurysm is seen. Major intracranial vessels are patent without significant stenosis. IMPRESSION: No significant stenosis identified. Reviewed, Interpreted and Dictated by Finesse Matta III, MD Transcribed by Yarelis Chappell Authenticated and [facility]
--- NOTE | 2023-01-08 08:40 | PC.NURSE ---
RADIOLOGY NOTIFIED OF STROKE PROTOCOL
--- NOTE | 2023-01-08 08:44 | HMH.EDGENADL ---
Discharge Plan Disposition Patient Disposition: Admitted Condition: Fair Prescriptions Prescriptions: No Action atorvastatin [Lipitor] 40 mg tablet 40 mg PO HS losartan [Cozaar] 25 mg tablet 12.5 mg PO DAILY magnesium oxide 400 mg capsule 400 mg PO HS folic acid 0.8 mg capsule 0.8 mg PO 1100 tamsulosin [Flomax] 0.4 mg capsule 0.4 mg PO 1100 insulin lispro protamin-lispro [Humalog Mix 75-25 KwikPen] 100 unit/mL (75-25) insulin pen 17 unit SQ BID Vraylar 1.5 mg capsule 1.5 mg PO DAILY levetiracetam [Keppra] 500 mg tablet 500 mg PO BID Qty: 60 11RF metformin 500 mg tablet 500 mg PO BID albuterol sulfate 90 mcg/actuation HFA aerosol inhaler 2 inh IH QID PRN (Reason: shortness of breath or wheezing) 90 Days Qty: 8.5 2RF spironolactone 50 mg tablet 50 mg PO DAILY Qty: 90 3RF Tradjenta 5 mg tablet 5 mg PO DAILY Spiriva Respimat 1.25 mcg/actuation mist 2 puff inhalation DAILY multivitamin Tablet 1 tab PO DAILY Acid Gone Antacid 95-358 mg/15 mL suspension 30 ml PO QPCHS sennosides 8.6 mg tablet 8.6 mg PO BID insulin glargine [Lantus U-100 Insulin] 100 unit/mL solution 15 unit SQ DAILY polyethylene glycol 3350 17 gram powder in packet 17 g PO DAILY guaifenesin [Diabetic Tussin EX] 100 mg/5 mL liquid 200 mg PO Q4H PRN bisacodyl 5 mg tablet 5 mg PO HS duloxetine 30 mg capsule,delayed release(DR/EC) 30 mg PO DAILY isosorbide mononitrate 30 mg tablet extended release 24 hr 30 mg PO DAILY furosemide [Lasix] 40 mg tablet 40 mg PO DAILY Qty: 30 3RF tramadol 50 mg tablet 50 mg PO QID Qty: 120 2RF gabapentin 400 mg capsule 400 mg PO TID 30 Days Qty: 90 5RF Paxlovid 300 mg (150 mg x 2)-100 mg tablets,dose pack See Rx Instructions PO .COMPLEX Qty: 30 0RF Rx Instructions: take TWO 150 mg tablets of nirmatrelvir with ONE 100 mg tablet of ritonavir twice daily for 5 days PO loperamide 2 MG capsule 2 mg PO Q4HP PRN (Reason: Diarrhea) aspirin 81 MG tablet,chewable 81 mg PO DAILY docusate calcium 240 MG capsule 240 mg PO DAILYP PRN (Reason: Constipation) lactulose 10 GM/15 ML solution 20 g PO DAILYP PRN (Reason: Constipation) acetaminophen 500 MG tablet 500 mg PO Q4HP PRN (Reason: As Needed For Fever Or Pain) omeprazole 20 MG capsule,delayed release(DR/EC) 20 mg PO Q48H cyanocobalamin (vitamin B-12) 500 MCG tablet 750 mcg PO DAILY levothyroxine 50 MCG tablet 50 mcg PO DAILY bisacodyl 10 MG suppository 10 mg RC DAILYP PRN (Reason: Constipation) duloxetine 60 mg capsule,delayed release(DR/EC) 60 mg PO DAILY trazodone 100 MG tablet 100 mg PO HS Referrals Follow up/Referrals: Roney Travis MD [Primary Care Provider] - See instructions Clinical Impressions Clinical Impression: AMS (altered mental status), TAURUS (acute kidney injury), Aspiration into airway Discharge ED Provider: Rabia Putnam General Adult HPI General Chief complaint: Weakness Stated complaint: Difficulty breathing, COVID+ 5days, unresponsive Time Seen by Provider: 01/08/23 08:50 Mode of Arrival: EMS Limitations: No Limitations Description of Symptoms (Recalled from ER Triage Doc. by RN): PT FROM [facility], PT UNRESPONSIVE IN DINING BARAJAS, CPR STARTED AND LARGE AMOUNT OF FOOD/MUCUS EXPELLED, CPR STOPPED, PT AWAKE. SLOW TO RESPOND. PT WITH EYES OPEN ON ARRIVAL, CAN TELL STAFF HIS NAME. PT IS COVID +, DAY #5. 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
[2023-01-08 08:49] LABS: POC Glucose,Bedside 167 (70-110)
[2023-01-08 08:50] LABS: VBG HCO3 27.3 mmol/L (23-30); VBG PH 7.37 mmol/L (7.31-7.41); VBG Total CO2 28.7 mmol/L (23-27)
[2023-01-08 08:51] LABS: Basophils # 0.1 K/mm3 (0-0.2); Basophils % 0.4 % (0.1-2.0); Eosinophils % 0.2 % (0.1-12.0); Hematocrit 47.5 % (42.0-52.0); Hemoglobin 14.9 g/dL (14.1-18.0); Lymphocytes # 1.1 K/mm3 (0.7-4.5); Lymphocytes % 6.8 % (10-50); Mean Corpuscular HGB Conc 31.4 g/dL (31.8-35.4); Mean Corpuscular Hemoglobin 33.1 pg (27.0-31.2); Mean Corpuscular Volume 105.3 fl (80-94); Mean Platelet Volume 8.3 fl (7.4-10.4); Monocytes # 0.9 K/mm3 (0.1-1.0); Monocytes % 5.4 % (1.7-9.3); Neutrophils # 14.4 K/mm3 (1.8-7.8); Neutrophils % 87.2 % (37.0-80.0); Platelet Count 366 K/mm3 (142-424); Red Blood Count 4.51 M/mm3 (4.60-6.20); Red Cell Distribution Width 14.4 % (11.5-17.5); White Blood Count 16.5 K/mm3 (4.8-10.8)
--- NOTE | 2023-01-08 08:52 | PC.NURSE ---
RADIOLOGY NOTIFIED AGAIN OF STROKE PROTOCOL
--- NOTE | 2023-01-08 08:53 | PC.NURSE ---
PT TO CT AT THIS TIME
[2023-01-08 08:59] LABS: MANUAL DIFFERENTIAL MANUAL DIFFERENTIAL (MANUAL DIFF)
[2023-01-08 09:05] LABS: Alanine Aminotransferase 27 U/L (12-78); Alkaline Phosphatase 121 U/L (38-126); Aspartate Amino Transferase 33 U/L (17-59); Bilirubin,Total 0.6 mg/dl (0.2-1.3); Blood Urea Nitrogen 49 mg/dl (9-20); Calcium 9.3 mg/dl (8.4-10.2); Carbon Dioxide 28 mmol/L (22.0-30.0); Chloride 104 mmol/L (98-107); Creatinine Clearance Estimated 41 mL/min (50-200); Estimated Glomerular Filt Rate 29 ml/min (>60); GFR (African American) 35 ML/MIN (>60); Glucose 193 mg/dl (74-100)
[2023-01-08 09:06] LABS: Lactic Acid 2.1 mmol/L (0.7-2.1)
[2023-01-08 09:07] LABS: Lipase 83 U/L (23-300)
[2023-01-08 09:08] LABS: INR 0.99 (0.9-1.1); Prothrombin Time 10.7 seconds (10.1-12.5)
--- NOTE | 2023-01-08 09:08 | PC.NURSE ---
Pt returned from RAD
[2023-01-08 09:16] LABS: Albumin Level 4.8 g/dl (3.5-5.0); Potassium 4.6 mmoL/L (3.5-5.1); Sodium 146 mmol/L (136-145); Total Protein,Serum 9.8 g/dl (6.3-8.2)
[2023-01-08 09:17] LABS: Anion Gap 18.6 mEq/L (5-15)
[2023-01-08 09:20] LABS: Lymphocytes % 13 % (10-50); Monocytes % 4 % (2-9); Neutrophils % 83 % (42-76); Total Cells Counted 100
[2023-01-08 09:21] LABS: Macrocytosis 1+; Platelet Estimate Normal
[2023-01-08 09:23] LABS: T4 (Thyroxine) 9.4 ug/dl (5.53-11.0)
[2023-01-08 09:24] LABS: Troponin I < 0.01 ng/ml (0.00-0.034)
--- NOTE | 2023-01-08 09:27 | PC.NURSE ---
Collect urine sample and 1 set of blood cultures, Lab notified for 2nd set.
[2023-01-08 09:33] LABS: Microscopic, Urine URINE MICROSCOPIC (MICROSCOPIC)
[2023-01-08 09:34] LABS: Appearance,Urine CLEAR (Clear); Blood, Urine 1+ (Negative); Color,Urine YELLOW (Yellow); Glucose,Urine (UA) Negative (Negative); Ketones,Urine TRACE (Negative); Leukocyte Esterase,Urine Negative (Negative); Nitrate,Urine Negative (Negative); PH,Urine 5.5 (5.0-8.5); Protein,Urine 1+ (Negative); Urobilinogen,Urine 0.2 EU/dl (0.2)
[2023-01-08 09:37] LABS: Bilirubin,Urine 2+ (Negative)
[2023-01-08 09:37] LABS: Thyroid Stimulating Hormone 1.02 uIU/mL (0.465-4.68)
--- NOTE | 2023-01-08 09:37 | EXP.PHA.CONS ---
Pharmacy Consult Date: 01/08/23 Time: 09:37 Referring provider: DR. PERALES Reason for Consult:: VANCOMYCIN DOSING Allergies Allergy/AdvReac Type Severity Reaction Status Date / Time morphine [MORPHINE] Allergy Mild HURTS Verified 11/21/22 09:48 STOMACH nitroglycerin AdvReac Mild Nausea Verified 11/21/22 09:48 Home Medications Medication Instructions Recorded Confirmed Type atorvastatin 40 mg tablet (Lipitor) 40 mg PO HS Cholesterol 03/24/17 11/21/22 History isosorbide mononitrate 30 mg 30 mg PO DAILY ANGINA 04/11/17 11/21/22 History tablet,extended release 24 hr folic acid 0.8 mg capsule 0.8 mg PO 1100 Supplement 09/30/17 11/21/22 History magnesium oxide 400 mg PO HS Supplement 09/30/17 11/21/22 History acetaminophen 500 mg tablet 500 mg PO Q4HP PRN As Needed For 11/10/17 11/21/22 History Fever Or Pain omeprazole 20 mg capsule,delayed 20 mg PO Q48H GERD 11/10/17 11/21/22 History release cyanocobalamin (vitamin B-12) 500 750 mcg PO DAILY Supplement 11/11/17 11/21/22 History mcg tablet levothyroxine 50 mcg tablet 50 mcg PO DAILY HYPOTHYROIDISM 11/11/17 11/21/22 History losartan 25 mg tablet (Cozaar) 12.5 mg PO DAILY Hypertension 09/29/18 11/21/22 History bisacodyl 10 mg rectal suppository 10 mg IA DAILYP PRN Constipation 11/17/18 11/21/22 History aspirin 81 mg chewable tablet 81 mg PO DAILY Heart Health 01/25/19 11/21/22 History loperamide 2 mg capsule 2 mg PO Q4HP PRN Diarrhea 01/25/19 11/21/22 History trazodone 100 mg tablet 100 mg PO HS SLEEP 02/24/20 11/21/22 History tamsulosin 0.4 mg capsule (Flomax) 0.4 mg PO 1100 URINARY RETENTION 04/24/20 11/21/22 History metformin 500 mg tablet 500 mg PO BID . 10/30/20 11/21/22 History docusate calcium 240 mg capsule 240 mg PO DAILYP PRN Constipation 02/09/21 11/21/22 History lactulose 10 gram/15 mL oral 20 g PO DAILYP PRN Constipation 02/09/21 11/21/22 History solution furosemide 40 mg tablet (Lasix) 40 mg PO DAILY #30 tabs 03/20/21 11/21/22 Rx albuterol sulfate 90 mcg/actuation 2 inh inhalation QID PRN shortness 08/29/21 11/21/22 Rx aerosol inhaler of breath or wheezing 90 days #8.5 grams duloxetine 60 mg capsule,delayed 60 mg PO DAILY MOOD 10/17/21 11/21/22 History release linagliptin 5 mg tablet (Tradjenta) 5 mg PO DAILY 10/17/21 11/21/22 History tiotropium bromide 1.25 2 puff inhalation DAILY 10/17/21 11/21/22 History mcg/actuation mist for inhalation (Spiriva Respimat) spironolactone 50 mg tablet 50 mg PO DAILY #90 tabs 11/29/21 11/21/22 Rx cariprazine 1.5 mg capsule 1.5 mg PO DAILY 01/08/22 11/21/22 History (Vraylar) insulin lispro protamine-lispro 17 unit SQ BID 01/08/22 11/21/22 History 100 unit/mL (75-25) subcutaneous pen (Humalog Mix 75-25 KwikPen) levetiracetam 500 mg tablet 500 mg PO BID Upper motor neuron 05/20/22 11/21/22 Rx (Keppra) lesion, spasticity #60 tabs aluminum hydrox-magnesium carb 95 30 ml PO QPCHS 11/21/22 11/21/22 History mg-358 mg/15 mL oral suspension (Acid Gone Antacid) bisacodyl 5 mg tablet 5 mg PO HS 11/21/22 11/21/22 History duloxetine 30 mg capsule,delayed 30 mg PO DAILY 11/21/22 11/21/22 History release guaifenesin 100 mg/5 mL oral 200 mg PO Q4H PRN 11/21/22 11/21/22 History liquid (Diabetic Tussin EX) insulin glargine 100 unit/mL 15 unit SQ DAILY 11/21/22 11/21/22 History subcutaneous solution (Lantus U-100 Insulin) multivitamin 1 tab PO DAILY 11/21/22 11/21/22 History polyethylene glycol 3350 17 gram 17 g PO DAILY 11/21/22 11/21/22 History oral powder packet sennosides 8.6 mg tablet 8.6 mg PO BID 11/21/22 11/21/22 History tramadol 50 mg tablet 50 mg PO QID #120 tabs 11/26/22 Rx gabapentin 400 mg capsule 400 mg PO TID 30 days #90 caps 12/26/22 Rx nirmatrelvir 300 mg (150 mg See Rx Instructions PO .COMPLEX 01/03/23 Rx x2)-ritonavir 100 mg tablet,dose #30 tabs pack (Paxlovid) New Prescriptions to Start Prescriptions: Height: 1.52 m Weight: 90.265 kg Labor
--- NOTE | 2023-01-08 09:41 | PC.NURSE ---
first set of blood cx obtained. Called lab to have them come obtain second set.
[2023-01-08 09:49] LABS: Bacteria,Urine 1+ /lpf; Hyaline Casts,Urine Occasional #/lpf (0)
--- NOTE | 2023-01-08 09:49 | PC.NURSE ---
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
--- NOTE | 2023-01-08 10:03 | PC.NURSE ---
LAB at to obtain second set of cultures
--- NOTE | 2023-01-08 10:50 | PC.NURSE ---
called care management for MRI approval, Lisette Dave RN approved, MRI advised.
--- NOTE | 2023-01-08 11:16 | PC.NURSE ---
DR PERALES SPEAKING WITH DR SALOMON FOR ADMISSION
--- NOTE | 2023-01-08 11:17 | PC.NURSE ---
Dr. Putnam s/w Dr. Go for admission
--- NOTE | 2023-01-08 12:11 | PC.NURSE ---
REPORT GIVEN TO KAMAR TIRADO
--- NOTE | 2023-01-08 12:32 | PC.NURSE ---
arrived by stretcher to floor from ED
--- NOTE | 2023-01-08 12:44 | PC.NURSE ---
Addendum entered by Soila Rai RN 01/08/23 12:45: no family present, but call light within reach Original Note: admitted pt to 218 from ED, pt has 20G left forearm present and wearing 2LNC with oxygen saturations 97%
[2023-01-08 12:45] LABS: Reflex Lactic Add Lactic Reflex
--- NOTE | 2023-01-08 12:49 | PC.NURSE ---
clarified that our pharmacy ordered the vanc dose that is ordered and they did, it is okay to give the ordered vanc on emar
[2023-01-08 12:50] LABS: Troponin I < 0.01 ng/ml (0.00-0.034)
--- NOTE | 2023-01-08 13:16 | P.CONPHA_ITS ---
Pharmacy Intervention Comments: Med reconciliation completed using list from [facility]. No insulin was listed on [place] MAR
--- NOTE | 2023-01-08 13:16 | HMH.PHAINT1 ---
Pharmacy Intervention Comments: Med reconciliation completed using list from [facility]. No insulin was listed on [place] MAR
[2023-01-08 13:57] LABS: Lactic Acid Follow Up (RFLX 1) 2.3 mmol/L (0.7-2.1)
--- NOTE | 2023-01-08 14:48 | HMH.PTEV ---
Physical Therapy Evaluation Rehab PT IP Evaluation Start: 01/08/23 11:32 Freq: ONCE Status: Active Protocol: Document 01/08/23 14:42 PHOGINNA (Rec: 01/08/23 14:48 PHORNE [id number]) Subjective/History History History 62 yowm adm to [facility] with aspiration PNA, sepsis, and TAURUS. 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 Currently no history available regarding his prior level of mobility for transfers to his w/c. Subjective Subjective Pt reports no new c/o at this time.Minimal movement of B UE and no movement of B LE. New diagnosis of cancer in past 12 No months? Rehab PT IP Eval Objective Appearance Patient Behavior Passive,Sedated Patient Orientation Person Difficulty following instructions moderate Speech Pattern Clear Ambulation Patient Able to Ambulate No Balance Ability to Arise Unable Sitting Balance Leans or slides in chair Dynamic Sitting Balance Ability Zero Transfers Bed Transfer Ability Total/Dependent (100%) Chair Transfer Ability Total/Dependent (100%) Rehab PT IP prob,goals,plan Problems Date of Evaluation: 01/08/23 PT IP Problems Bed Mobility,Transfers Rehab Potential Rehab Potential Fair Plan PT Intervention Plan Bed Mobility,Transfers, Therapeutic Exercise PT Plan Frequency Daily Duration LOS Discharge Goals Bed Transfer Ability Maximum x 2 (75% assist) Discharge Plan PT Discharge Plan pt is currently most appropriate to return to SNF with possible rehab placement if his baseline mobility is higher than dependent level of assist. Eval Complexity Eval Charge Codes 49977 - High Complexity
[2023-01-08 15:04] LABS: Troponin I < 0.01 ng/ml (0.00-0.034)
--- NOTE | 2023-01-08 15:15 | HMH.OTEV ---
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 According to nursing facility, the patient was eating breakfast in the dining [place]nandez when he suddenly stopped breathing. They laid him down on the ground to initiate CPR, and they noted that he expelled a large amount of food/mucus. They note that he has been altered and minimally responsive since then. Last known normal effectively around 7:30 AM. Typically, the patient is alert and conversational according to medical record review. According to facility, patient is also on day 5 of COVID-19. EMS brings the patient in, who noted that he was stable in room on his home nasal cannula. They do note that he is altered with suspected gaze preference to the right. I can sit. Patient is a resident at [place]. w/c bound. Unable to actively move B LE, however
--- NOTE | 2023-01-08 15:37 | CARE MANAGER ---
Spoke with Jean Paul. Patient is currently [facility] level of care there and is dependent in mobility. KAMAR Dunn
[2023-01-08 15:45] LABS: Reflex Lactic (2 hrs) Add Lactic Reflex
--- NOTE | 2023-01-08 16:08 | EXP.HP ---
History of Present Illness *Admission Date: 01/08/23 *Reason for visit:: aspiration, choking event *History of present illness: Patient is a poor historian. Able to answer simple questions but most of history obtained from ER and nursing documentation Mr. Blakely is a 62-year-old male who resides [facility]. He was found to be unresponsive in the dining hernandez. CPR was started and a large amount of food and mucus were expelled. He slowly woke up and regained consciousness but was not back to baseline. EMS called, patient brought in on supplemental oxygen. Wears 2 L nasal cannula at baseline. Has had COVID, diagnosed 5 days ago. Tolerating Paxlovid in the outpatient setting. Initial workup in the ER with scans of his head out of concern for focal/unilateral deficits. No acute stroke identified. Labs concerning for TAURUS. Noted to have leukocytosis. Technically meeting sepsis criteria with tachycardia, tachypnea, leukocytosis. Patient initiated on broad-spectrum antibiotics and cultures obtained. Medicine consulted for admission. On arrival to the floor, patient is alert and interactive. Slow to respond but answers questions appropriately. O2 sats appropriate on 2 L nasal cannula oxygen. Denies any chest pain or shortness of breath. No nausea at this time. Unable to give any history of event. [facility] Disclaimer: The information contained in this section may have been updated after the patient was seen, as this information can be updated by other users. 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 CAD (coronary artery disease) CAD (coronary atherosclerotic disease) Celiac artery stenosis Chronic heart failure with preserved ejection fraction (HFpEF) Chronic subdural hematoma Chronic subdural hematoma Coronary arteriosclerosis in lime artery Dyspnea on exertion Edema Extreme obesity Heart failure, NYHA class 2 HHD (hypertensive heart disease) HLD (hyperlipidemia) Hypertension with goal to be determined Hypertensive heart disease without heart failure Impingement syndrome of both shoulders Intolerance to BiPAP/CPAP Obesity Obesity, Class II, BMI 35-39.9, isolated (see actual BMI) Osteopenia Other hyperlipidemia Pain in left wrist Post-traumatic subdural hematoma Pulmonary emphysema Renal insufficiency Renal insufficiency Renal lesion SOB (shortness of breath) Soft tissue disorder, unspecified Subdural hematoma Subdural hematoma due to concussion Synovial plica syndrome of left knee Type 2 diabetes mellitus with pressure callus Surgical History History of arthroscopy of shoulder History of carpal tunnel release Family History Diabetes Cancer Social History Smoking Status: Former smoker tobacco type: cigarettes alcohol intake: never substance use type: denies use current occupational status: disabled Travel in the last 8 weeks: None caregiver/support person: Yes household members: caregiver housing: halfway caffeine: No Review of Systems Review of Systems Review of systems (narrative): 14 point review of systems performed, pertinent positives and negatives as per [facility] Meds Home Medications and Allergies Home Medications Medication Instructions Recorded Confirmed Type atorvastatin 40 mg tablet (Lipitor) 40 mg PO HS Cholesterol 03/24/17 01/08/23 History isosorbide mononitrate 30 mg 30 mg PO DAILY Chest Pain 04/11/17 01/08/23 History tablet,extended release 24 hr folic acid 0.8 mg capsule 0.8 mg PO DAILY Supplement 09/30/17 01/08/23 History magnesium oxide 400 mg PO HS Supplement 09/30/17 01/08/23 History acetaminophen 500 mg tablet 500 mg PO Q4HP PRN Fever Or Pain 11/10/17 01/08/23 History omeprazole
[2023-01-08 16:14] LABS: POC Glucose,Bedside 143 (70-110)
[2023-01-08 17:35] LABS: Lactic Acid Follow up (RFLX 2) 3.2 mmol/L (0.7-2.1)
--- NOTE | 2023-01-08 19:35 | PC.NURSE ---
Pt O2 continuously dropping into 70s. On assessment, pt is asleep and snoring. When pt woken up, O2 >90%. Pt placed on venti mask to sleep by RT at this time.
[2023-01-08 21:05] LABS: POC Glucose,Bedside 138 (70-110)
[2023-01-09] VITALS (18 sets, daily range): BP systolic 90–124; BP diastolic 46–77; PULSE 80–98; RESP 15–24; TEMP 37.2–38.3; O2SAT 90–96; BMI 33.5
[2023-01-09 06:32] LABS: POC Glucose,Bedside 174 (70-110)
--- NOTE | 2023-01-09 07:46 | EXP.ACUTE.PN ---
Subjective *Date: 01/09/23 *Time: 14:35 Interval history: Patient had fever this morning 201. Is stable on 2 L nasal cannula after removing Ventimask that he wore overnight. White cell count improving. Tolerating p.o. intake. No nausea or vomiting. Denies any chest pain or shortness of breath. Medical Exam Vital signs and Labs for Last 24 Hours: Vital Signs Temp Pulse Pulse Resp BP BP Pulse Ox 01/09/23 07:41 101.0 F H 01/09/23 06:31 01/09/23 06:00 99.9 F H 97 H 24 122/46 L 90 L 01/09/23 05:00 01/09/23 06:14 96 H 01/09/23 06:14 93 H 01/09/23 06:14 91 L 01/09/23 00:00 90 01/09/23 04:00 90 01/09/23 04:00 96 H 18 115/72 93 L 01/09/23 03:00 01/09/23 02:00 95 H 24 121/71 92 L 01/09/23 01:04 90 L 01/09/23 00:00 86 24 102/51 L 94 L 01/09/23 00:52 01/09/23 00:00 99.1 F 01/09/23 00:01 90 01/09/23 00:01 87 01/08/23 23:00 01/08/23 20:00 91 L 01/08/23 22:00 99 H 19 137/67 94 L 01/08/23 20:00 88 18 119/66 91 L 01/08/23 21:00 01/08/23 20:00 80 01/08/23 19:49 99.0 F 01/08/23 18:13 01/08/23 18:00 90 25 H 110/67 92 L 01/08/23 17:00 01/08/23 16:00 93 L 01/08/23 16:00 90 01/08/23 16:00 98.5 F 01/08/23 15:00 01/08/23 12:40 90 01/08/23 14:00 86 24 127/71 94 L 01/08/23 13:00 01/08/23 13:00 89 24 127/82 93 L 01/08/23 12:40 88 18 124/93 H 96 01/08/23 12:15 98.2 F 92 H 20 125/79 01/08/23 11:30 96 H 20 118/71 96 01/08/23 11:00 86 20 116/74 92 L 01/08/23 10:31 88 22 108/68 L 96 01/08/23 09:45 90 25 H 114/75 93 L 01/08/23 09:31 90 26 H 114/75 96 01/08/23 08:30 100 H 26 H 123/82 94 L 01/08/23 08:30 98.6 F 99 H 20 120/82 95 O2 Del Method O2 Flow Rate FiO2 01/09/23 07:41 01/09/23 06:31 Venturi Mask 01/09/23 06:00 Venturi Mask 15 50 01/09/23 05:00 Venturi Mask 01/09/23 06:14 01/09/23 06:14 01/09/23 06:14 Venturi Mask 50 01/09/23 00:00 01/09/23 04:00 01/09/23 04:00 Venturi Mask 15 50 01/09/23 03:00 Room Air 01/09/23 02:00 Venturi Mask 15 50 01/09/23 01:04 Venturi Mask 15 50 01/09/23 00:00 Venturi Mask 15 50 01/09/23 00:52 Venturi Mask 01/09/23 00:00 01/09/23 00:01 01/09/23 00:01 01/08/23 23:00 Venturi Mask 01/08/23 20:00 Venturi Mask 15 50 01/08/23 22:00 Venturi Mask 50 01/08/23 20:00 Venturi Mask 15 50 01/08/23 21:00 Venturi Mask 01/08/23 20:00 01/08/23 19:49 01/08/23 18:13 Nasal Cannula 2 01/08/23 18:00 Nasal Cannula 2 01/08/23 17:00 Nasal Cannula 2 01/08/23 16:00 Nasal Cannula 2 01/08/23 16:00 01/08/23 16:00 01/08/23 15:00 Nasal Cannula 2 01/08/23 12:40 01/08/23 14:00 Nasal Cannula 2 01/08/23 13:00 Nasal Cannula 2 01/08/23 13:00 Nasal Cannula 2 01/08/23 12:40 Nasal Cannula 2 01/08/23 12:15 Nasal Cannula 2 01/08/23 11:30 01/08/23 11:00 01/08/23 10:31 01/08/23 09:45 01/08/23 09:31 Nasal Cannula 2 01/08/23 08:30 Nasal Cannula 2 01/08/23 08:30 Nasal Cannula 2 Intake and Output 01/08/23 01/08/23 01/09/23 15:59 23:59 07:59 Intake Total 616 / 616 0 / 0 Output Total 0 / 0 Balance 616 / 616 0 / 0 Intake: Intake, Oral Amount 480 / 480 0 / 0 Intake, Total IV Amount 136 / 136 Levofloxacin/D5w 750 mg/150 ml 136 / 136 750 mg In 150 ml @ 100 mls/hr IV Q48H [facility] Rx#:[id number] Output: Output, Urine Amount 0 / 0 Other: Number of Unmeasured Voids 1 Number of Bowel Movements 1 1 Weight 82.554 kg 82.544 kg Patient Weight 01/09/23 23:59 Weight 82.544 kg Laboratory Results - last 24 hr 01/08/23 08:20: WBC 16.5 H, RBC 4.51 L, Hgb 14.9, Hct 47.5, MCV 105.3 H, MCH 33.1 H, MC
[2023-01-09 08:23] LABS: Adenovirus,PCR Not Detected (NotDetected); Coronavirus 19, PCR Not Detected (NotDetected); Coronavirus 229E Not Detected (NotDetected); Coronavirus NL63 Not Detected (NotDetected); Coronavirus OC43 Not Detected (NotDetected); Coronovirus HKU1,PCR Not Detected (NotDetected); Human Metapneumovirus Not Detected (NotDetected); Influenza A, PCR Not Detected (NotDetected); Influenza AH1, 2009 Not Detected (NotDetected); Influenza AH1, PCR Not Detected (NotDetected); Influenza AH3,PCR Not Detected (NotDetected); Influenza B, PCR Not Detected (NotDetected); Parainfluenza 1, PCR Not Detected (NotDetected); Parainfluenza 2, PCR Not Detected (NotDetected); Parainfluenza 3, PCR Not Detected (NotDetected); Parainfluenza 4, PCR Not Detected (NotDetected); Respiratory Syncytial Virus Not Detected (NotDetected); Rhinovirus/Enterovirus Not Detected (NotDetected)
[2023-01-09 08:33] LABS: Basophils # 0.1 K/mm3 (0-0.2); Basophils % 0.4 % (0.1-2.0); Eosinophils # 0.1 K/mm3 (0.0-0.4); Hematocrit 41.4 % (42.0-52.0); Lymphocytes # 1.3 K/mm3 (0.7-4.5); Lymphocytes % 10.1 % (10-50); Mean Corpuscular HGB Conc 31.4 g/dL (31.8-35.4); Mean Corpuscular Hemoglobin 33.2 pg (27.0-31.2); Mean Corpuscular Volume 105.7 fl (80-94); Mean Platelet Volume 8.4 fl (7.4-10.4); Monocytes # 0.6 K/mm3 (0.1-1.0); Monocytes % 4.3 % (1.7-9.3); Neutrophils # 10.8 K/mm3 (1.8-7.8); Neutrophils % 84.3 % (37.0-80.0); Platelet Count 276 K/mm3 (142-424); Red Blood Count 3.91 M/mm3 (4.60-6.20); Red Cell Distribution Width 14.4 % (11.5-17.5); White Blood Count 12.9 K/mm3 (4.8-10.8)
[2023-01-09 08:49] LABS: Alanine Aminotransferase 22 U/L (12-78); Albumin Level 4.2 g/dl (3.5-5.0); Alkaline Phosphatase 95 U/L (38-126); Anion Gap 13.4 mEq/L (5-15); Aspartate Amino Transferase 34 U/L (17-59); Bilirubin,Total 0.5 mg/dl (0.2-1.3); Blood Urea Nitrogen 39 mg/dl (9-20); Calcium 8.7 mg/dl (8.4-10.2); Carbon Dioxide 31 mmol/L (22.0-30.0); Chloride 106 mmol/L (98-107); Chol/HDL Ratio 6.7 (1-3.5); Cholesterol 193 mg/dl (140-200); Creatinine Clearance Estimated 54 mL/min (50-200); Estimated Glomerular Filt Rate 44 ml/min (>60); GFR (African American) 53 ML/MIN (>60); Globulin 4.4 g/dL (1.3-3.2); Glucose 173 mg/dl (74-100); HDL Cholesterol 29 mg/dl (40-60); Magnesium 3.1 mg/dl (1.6-2.3); Potassium 4.4 mmoL/L (3.5-5.1); Sodium 146 mmol/L (136-145); Total Protein,Serum 8.6 g/dl (6.3-8.2); Triglycerides 327 mg/dl (30-150); VLDL Cholesterol 65 mg/dL (0-40)
[2023-01-09 09:00] LABS: Direct LDL Cholesterol 100.36 mg/dL (100-129)
--- NOTE | 2023-01-09 09:11 | EXP.PHA.CONS ---
Pharmacy Consult Date: 01/09/23 Time: 09:11 Referring provider: DR. SALOMON Reason for Consult:: VANCOMYCIN DOSING CHANGE Allergies Allergy/AdvReac Type Severity Reaction Status Date / Time morphine [MORPHINE] Allergy Mild HURTS Verified 11/21/22 09:48 STOMACH nitroglycerin AdvReac Mild Nausea Verified 11/21/22 09:48 Home Medications Medication Instructions Recorded Confirmed Type atorvastatin 40 mg tablet (Lipitor) 40 mg PO HS Cholesterol 03/24/17 01/08/23 History isosorbide mononitrate 30 mg 30 mg PO DAILY Chest Pain 04/11/17 01/08/23 History tablet,extended release 24 hr folic acid 0.8 mg capsule 0.8 mg PO DAILY Supplement 09/30/17 01/08/23 History magnesium oxide 400 mg PO HS Supplement 09/30/17 01/08/23 History acetaminophen 500 mg tablet 500 mg PO Q4HP PRN Fever Or Pain 11/10/17 01/08/23 History omeprazole 20 mg capsule,delayed 20 mg PO Q48H GERD 11/10/17 01/08/23 History release levothyroxine 50 mcg tablet 50 mcg PO DAILY Thyroid 11/11/17 01/08/23 History losartan 25 mg tablet (Cozaar) 12.5 mg PO DAILY Hypertension 09/29/18 01/08/23 History bisacodyl 10 mg rectal suppository 10 mg ID DAILYP PRN Constipation 11/17/18 01/08/23 History aspirin 81 mg chewable tablet 81 mg PO DAILY Heart Health 01/25/19 01/08/23 History loperamide 2 mg capsule 2 mg PO Q4HP PRN Diarrhea 01/25/19 01/08/23 History trazodone 100 mg tablet 100 mg PO HS sleep 02/24/20 01/08/23 History tamsulosin 0.4 mg capsule (Flomax) 0.4 mg PO DAILY urinary retention 04/24/20 01/08/23 History metformin 500 mg tablet 500 mg PO BID 10/30/20 01/08/23 History docusate calcium 240 mg capsule 240 mg PO DAILYP PRN Constipation 02/09/21 01/08/23 History lactulose 10 gram/15 mL oral 20 g PO DAILYP PRN Constipation 02/09/21 01/08/23 History solution furosemide 40 mg tablet (Lasix) 40 mg PO DAILY #30 tabs 03/20/21 01/08/23 Rx albuterol sulfate 90 mcg/actuation 2 inh inhalation QID PRN shortness 08/29/21 01/08/23 Rx aerosol inhaler of breath or wheezing 90 days #8.5 grams duloxetine 60 mg capsule,delayed 60 mg PO DAILY mood 10/17/21 01/08/23 History release linagliptin 5 mg tablet (Tradjenta) 5 mg PO DAILY 10/17/21 01/08/23 History tiotropium bromide 1.25 2 puff inhalation DAILY 10/17/21 01/08/23 History mcg/actuation mist for inhalation (Spiriva Respimat) spironolactone 50 mg tablet 50 mg PO DAILY #90 tabs 11/29/21 01/08/23 Rx aluminum hydrox-magnesium carb 95 30 ml PO Q4HP PRN GI upset 11/21/22 01/08/23 History mg-358 mg/15 mL oral suspension (Acid Gone Antacid) bisacodyl 5 mg tablet 10 mg PO DAILYP PRN Constipation 11/21/22 01/08/23 History duloxetine 30 mg capsule,delayed 30 mg PO DAILY mood 11/21/22 01/08/23 History release guaifenesin 100 mg/5 mL oral 200 mg PO Q4HP PRN Cough 11/21/22 01/08/23 History liquid (Diabetic Tussin EX) multivitamin 1 tab PO DAILY 11/21/22 01/08/23 History polyethylene glycol 3350 17 gram 17 g PO DAILY 11/21/22 01/08/23 History oral powder packet tramadol 50 mg tablet 50 mg PO QID #120 tabs 11/26/22 01/08/23 Rx gabapentin 400 mg capsule 400 mg PO TID 30 days #90 caps 12/26/22 01/08/23 Rx cariprazine 3 mg capsule (Vraylar) 3 mg PO DAILY 01/08/23 01/08/23 History cyanocobalamin (vitamin B-12) 250 750 mcg PO DAILY 01/08/23 01/08/23 History mcg tablet (Vitamin B-12) levetiracetam 500 mg tablet 500 mg PO BID 01/08/23 01/08/23 History (Keppra) nirmatrelvir 300 mg (150 mg 3 tab PO BID 01/08/23 01/08/23 History x2)-ritonavir 100 mg tablet,dose pack (Paxlovid) sennosides 8.6 mg-docusate sodium 2 tab-cap PO BID 01/08/23 01/08/23 History 50 mg tablet (Senexon-S) New Prescriptions to Start Prescriptions: Height: 1.57 m Weight: 82.544 kg Laboratory Results:: Laboratory Results - last 24 hr 01/08/23 08:20: Total Counted 100, Neutrophils % (Manual) 83 H, Lymphocytes % (Manual) 13, Monocytes % (Manual) 4, Platelet Estimate Normal, RBC Morphology Not Reportable, Macrocytosis 1+, PT 10.
[2023-01-09 09:14] LABS: Hemoglobin 13.1 g/dL (14.1-18.0)
[2023-01-09 09:19] LABS: Thyroid Stimulating Hormone 1.31 uIU/mL (0.465-4.68)
[2023-01-09 10:49] LABS: Hemoglobin A1C 5.7 % (4.0-6.0)
[2023-01-09 11:26] LABS: POC Glucose,Bedside 168 (70-110)
--- NOTE | 2023-01-09 12:08 | DIET.NUTRFU ---
RD consulted secondary to low kiko score of 11, currently on diabetic diet. refused to eat breakfast this morning. Not meeting nutritional needs. Started glucerna with tray to help meet nutritional needs if consumed. Provider indicated he passed bedside swallow study. Lives at [place]. Will continue to monitor meal intake
[2023-01-09 16:55] LABS: POC Glucose,Bedside 136 (70-110)
--- OUTSIDE RECORDS SUMMARY | 2023-01-09 20:40 | XMS_ITS | Continuity of Care Document ---
Author Name Unknown Organization [address] [place] [address] [place] [address] [address] [place] [address] Phone Care Team Providers Care Grain Unloader Name Role Phone Gutierrez Johnson DPM Unavailable Unavailable Allergies, Adverse Reactions, Alerts Substance Reaction Status Criticality No Known Allergies Active No Inform ation Medications Medication Instructions Dosage Effective Dates (start - stop) Status Comments nitroglycerin 0.4 mg sublingual tablet - Active Aspir-81 81 mg tablet,delayed release - Active furosemide 80 mg tablet - Active Procedures Procedure Date DEBRIDEMENT OF NAIL(S) BY ANY METHOD(S); 6 OR MORE Diabetic Foot Exam Performed Limited Oral Eval Prob Focused DEBRIDEMENT OF NAIL(S) BY ANY METHOD(S); 6 OR MORE REMOVE IMPACTED EAR WAX DEBRIDEMENT OF NAIL(S) BY ANY METHOD(S); 6 OR MORE Diabetic Foot Exam Performed Ophthalmological services, E/M Bridger Quintero nt,Comprehensive,1 or more visits DEBRIDEMENT OF NAIL(S) BY ANY METHOD(S); 6 OR MORE Prophylaxis - Adult DEBRIDEMENT OF NAIL(S) BY ANY METHOD(S); 6 OR MORE Resin Composite One Surface Anterior Mar DEBRIDEMENT OF NAIL(S) BY ANY METHOD(S); 6 OR MORE
--- NOTE | 2023-01-09 22:15 | PC.NURSE ---
During patient care rounds, patient stated that his left arm was hurting him. Upon inspection, left forearm IV appeared to be infiltrated with Levaquin running. Stopped infusion and removed IV from arm. Contacted [facility] pharmacy and spoke with Dudley. No antidotes for infiltrated medicine. Arm elevated and warm compress in place. New IV started in right AC, to which patent tolerated placement well.
[2023-01-10] VITALS: BP 101/63; PULSE 80; PULSE 85; RESP 20; TEMP 36.9; O2SAT 97
[2023-01-10 04:00] VITALS: BP 125/66; BP 136/80; PULSE 77; PULSE 78; PULSE 80; RESP 16; RESP 20; TEMP 36.5; O2SAT 95; O2SAT 97; BMI 33.5
[2023-01-10 05:20] VITALS: PULSE 75; PULSE 78; O2SAT 97
[2023-01-10 07:10] LABS: Basophils # 0.1 K/mm3 (0-0.2); Basophils % 0.5 % (0.1-2.0); Eosinophils # 0.2 K/mm3 (0.0-0.4); Eosinophils % 2.4 % (0.1-12.0); Hemoglobin 11.8 g/dL (14.1-18.0); Lymphocytes # 1.4 K/mm3 (0.7-4.5); Lymphocytes % 14.8 % (10-50); Mean Corpuscular HGB Conc 31.8 g/dL (31.8-35.4); Mean Corpuscular Volume 106.7 fl (80-94); Mean Platelet Volume 8.6 fl (7.4-10.4); Monocytes # 0.5 K/mm3 (0.1-1.0); Monocytes % 4.6 % (1.7-9.3); Neutrophils # 7.6 K/mm3 (1.8-7.8); Neutrophils % 77.8 % (37.0-80.0); Platelet Count 244 K/mm3 (142-424); Red Blood Count 3.47 M/mm3 (4.60-6.20); Red Cell Distribution Width 14.6 % (11.5-17.5); White Blood Count 9.8 K/mm3 (4.8-10.8)
[2023-01-10 07:22] LABS: Alanine Aminotransferase 39 U/L (12-78); Albumin Level 4.2 g/dl (3.5-5.0); Albumin/Globulin Ratio 1.1 (1.1-1.8); Alkaline Phosphatase 80 U/L (38-126); Anion Gap 17.8 mEq/L (5-15); Aspartate Amino Transferase 46 U/L (17-59); Bilirubin,Total 0.4 mg/dl (0.2-1.3); Blood Urea Nitrogen 32 mg/dl (9-20); Calcium 8.2 mg/dl (8.4-10.2); Carbon Dioxide 24 mmol/L (22.0-30.0); Chloride 101 mmol/L (98-107); Creatinine Clearance Estimated 62 mL/min (50-200); Estimated Glomerular Filt Rate 51 ml/min (>60); GFR (African American) 62 ML/MIN (>60); Globulin 3.7 g/dL (1.3-3.2); Glucose 290 mg/dl (74-100); Magnesium 2.5 mg/dl (1.6-2.3); Potassium 3.8 mmoL/L (3.5-5.1); Sodium 139 mmol/L (136-145); Total Protein,Serum 7.9 g/dl (6.3-8.2)
[2023-01-10 07:45] VITALS: BP 140/73; PULSE 82; RESP 18; TEMP 37.2; O2SAT 98
[2023-01-10 08:00] VITALS: PULSE 80
--- NOTE | 2023-01-10 10:11 | EXP.DC.SUM ---
General Admission date:: 01/09/23 Discharge date: 01/10/23 HPI HPI HPI: Patient is a poor historian. Able to answer simple questions but most of history obtained from ER and nursing documentation Mr. Blakely is a 62-year-old male who resides [facility]. He was found to be unresponsive in the dining hernandez. CPR was started and a large amount of food and mucus were expelled. He slowly woke up and regained consciousness but was not back to baseline. EMS called, patient brought in on supplemental oxygen. Wears 2 L nasal cannula at baseline. Has had COVID, diagnosed 5 days ago. Tolerating Paxlovid in the outpatient setting. Initial workup in the ER with scans of his head out of concern for focal/unilateral deficits. No acute stroke identified. Labs concerning for TAURUS. Noted to have leukocytosis. Technically meeting sepsis criteria with tachycardia, tachypnea, leukocytosis. Patient initiated on broad-spectrum antibiotics and cultures obtained. Medicine consulted for admission. On arrival to the floor, patient is alert and interactive. Slow to respond but answers questions appropriately. O2 sats appropriate on 2 L nasal cannula oxygen. Denies any chest pain or shortness of breath. No nausea at this time. Unable to give any history of event. Hospital Course Hospital Course Hospital Course: 62-year-old male who resides at a long-term. Multiple comorbidities. Had an aspiration event while eating today. Proceeded to vomit what he was choking on as he was responded to by staff. Brought to the ER for further evaluation. Patient was initially altered. Admitted for aspiration event, concern for sepsis and TAURUS. Patient has shown improvement during admission. Kidney function normalized. Stable on oxygen. Desats mainly at night due to sleep apnea. Tolerating p.o. intake. Will continue antibiotics to complete empiric course. Stable for discharge back to nursing facility. Sepsis Aspiration Acute hypoxemic respiratory failure COVID-19, diagnosed 5 days prior to admission. -Cultures obtained on arrival. Imaging of chest did not show significant consolidation. White cell count was elevated on arrival but improved over 48 hours to normal level on day of discharge at 9.8. Was initiated on empiric antibiotics. Will transition to levofloxacin to complete 7-day course. Treated with DuoNebs and Spiriva during admission. Continue breathing treatments per home regimen at discharge. Continue supplemental oxygen as needed. Goal saturation greater 90%. Required 2 to 4 L at night because of his sleep apnea and intolerance of the mask. Repeat comprehensive panel obtained that was negative for all analytes including COVID. Tylenol 500 mg as needed for fever. Stable to discharge back to long-term. Tolerating good p.o. intake. Sepsis and pneumonia resolving. TAURUS Suspected secondary to prerenal with BUN of 49 creatinine to 2.3 on admission. Labs showing improvement with BUN of 32 and creatinine 1.4 on morning of discharge. Recommend repeat CBC, CMP, magnesium in 1 week Schizoaffective disorder: Continue Cymbalta 90 mg daily, gabapentin 400 mg tid, Keppra 500mg twice daily, Vraylar 3 mg daily Hypertension: Blood pressures have been normal during hospitalization. Held losartan in the setting of TAURUS. Reevaluate need for ARB therapy over the next 1 to 2 weeks. Hypothyroid: TSH well-controlled at 1.3, continue levothyroxine 50 mcg daily Diabetes: A1c normal at 5.7. Discontinue diabetes meds during hospitalization. Reevaluate need for metformin in the outpatient setting. Recommend repeat A1c in 3 months. Obesity and debility complicate all aspects of his care Continue trazodone 100 mg nightly for sleep Continue tamsulosin 0.4 mg daily for BPH Continue bowel regimen from long-term Stable for discharge back to [facility]. Exam Data for Last 24 hours Vital signs and Labs for Last 24 Hours: Temp Pulse Resp B
--- OUTSIDE RECORDS SUMMARY | 2023-01-10 10:40 | XMS_ITS | Continuity of Care Document ---
Author Name Unknown Organization [address] [place] [address] [place] [address] [address] [place] [address] Phone Care Team Providers Care Sheriff Deputy Name Role Phone Gutierrez Johnson DPM Unavailable [...]
== END 2023-01-10 12:45 | DRG 871 ==
LOC: ER 11:28 → 2ND 12:02
PROVIDERS: Admitting Provider Internal Medicine Adolescent Medicine; Emergency Provider Emergency Medicine; PCP Emergency Medicine; Visit Provider Internal Medicine Adolescent Medicine
DX: A41.9 Sepsis, unspecified organism (principal); J96.21 Acute and chronic respiratory failure with hypoxia; U07.1 COVID-19; N17.9 Acute kidney failure, unspecified; F25.9 Schizoaffective disorder, unspecified; I10 Essential (primary) hypertension; T17.908A Unspecified foreign body in respiratory tract, part unspecified causing other injury, initial encounter; I25.10 Atherosclerotic heart disease of native coronary artery without angina pectoris; J43.9 Emphysema, unspecified; G47.33 Obstructive sleep apnea (adult) (pediatric); E11.628 Type 2 diabetes mellitus with other skin complications; E03.9 Hypothyroidism, unspecified; Z99.3 Dependence on wheelchair; I73.9 Peripheral vascular disease, unspecified; E66.9 Obesity, unspecified; E78.5 Hyperlipidemia, unspecified; E11.9 Type 2 diabetes mellitus without complications; Z68.35 Body mass index [BMI] 35.0-35.9, adult; Z87.891 Personal history of nicotine dependence; M19.09 Primary osteoarthritis, other specified site; E11.51 Type 2 diabetes mellitus with diabetic peripheral angiopathy without gangrene; Z79.84 Long term (current) use of oral hypoglycemic drugs
CPT/HCPCS: 36415; 70450; 70496; 70498; 71275; 80053; 80061; 81001; 82803; 82962; 83036; 83605; 83690; 83735; 84436; 84443; 84484; 85007; 85025; 85610; 85730; 87040; 87086; 87632; 87635; 93005; 94640; 94761; 97163; 97165; 97530; 99291; J1956; J2543; Q9967

== ENCOUNTER 2023-02-21 12:49 | Outpatient (CLI) | payer MEDICARE, MEDICAID, SELFPAY | END 2023-02-21 23:59 | PROVIDERS: PCP Internal Medicine; Visit Provider Internal Medicine Pulmonary Disease | DX: R06.09 Other forms of dyspnea (principal) ==

== ENCOUNTER 2023-03-10 08:01 | Inpatient (IN) | payer MEDICARE, MEDICAID, SELFPAY ==
[2023-03-10] VITALS (27 sets, daily range): BP systolic 117–160; BP diastolic 57–82; PULSE 86–129; RESP 17–33; TEMP 36.7–39.2; O2SAT 92–100; BMI 31.3; BMI 32.3
--- NOTE | 2023-03-10 08:06 | XR_ITS ---
FINAL REPORT CLINICAL HISTORY: Shortness of breath COMPARISON: 09/13/2021 FINDINGS: The heart size is normal. The mediastinum is normal. There is no focal infiltrate or edema. There are no pleural effusions. There is no pneumothorax. There is no osseous abnormality. IMPRESSION: No acute cardiopulmonary process Reviewed, Interpreted and Dictated by Lm Stallworth MD Transcribed by Faith Wolfe Authenticated and [facility]
--- NOTE | 2023-03-10 08:07 | ECG_ITS ---
APPROVED REPORT Exam: Resting ECG HR:103 bpm ECG Measurements Heart Rate 103 AXES CO 174 P 68 QRSd 104 QRS 73 QT 302 T 42 QTc 362 Conclusion SINUS TACHYCARDIA INCOMPLETE RIGHT BUNDLE BRANCH BLOCK [90+ ms QRS DURATION, TERMINAL R IN V1/V2, 40+ ms S IN I/aVL/V4/V5/V6] NONSPECIFIC T-WAVE ABNORMALITY ABNORMAL RHYTHM ECG UNCONFIRMED REPORT Electronically signed by : Fritz Acosta MD 03/10/2023 17:28:11
--- NOTE | 2023-03-10 08:08 | PC.NURSE ---
Notified RT of VBG order
--- NOTE | 2023-03-10 08:09 | ED_ITS ---
Discharge Plan Disposition Patient Disposition: Admitted Condition: Fair Prescriptions Prescriptions: No Action atorvastatin [Lipitor] 40 mg tablet 40 mg PO HS losartan [Cozaar] 25 mg tablet 12.5 mg PO DAILY magnesium oxide 400 mg capsule 400 mg PO HS folic acid 0.8 mg capsule 0.8 mg PO DAILY tamsulosin [Flomax] 0.4 mg capsule 0.4 mg PO DAILY metformin 500 mg tablet 500 mg PO BID albuterol sulfate 90 mcg/actuation HFA aerosol inhaler 2 inh IH QID PRN (Reason: shortness of breath or wheezing) 90 Days Qty: 8.5 2RF spironolactone 50 mg tablet 50 mg PO DAILY Qty: 90 3RF Tradjenta 5 mg tablet 5 mg PO DAILY Spiriva Respimat 1.25 mcg/actuation mist 2 puff inhalation DAILY multivitamin Tablet 1 tab PO DAILY Acid Gone Antacid 95-358 mg/15 mL suspension 30 ml PO Q4HP PRN (Reason: GI upset) polyethylene glycol 3350 17 gram powder in packet 17 g PO DAILY bisacodyl 5 mg tablet 10 mg PO DAILYP PRN (Reason: Constipation) duloxetine 30 mg capsule,delayed release(DR/EC) 30 mg PO DAILY isosorbide mononitrate 30 mg tablet extended release 24 hr 30 mg PO DAILY furosemide [Lasix] 40 mg tablet 40 mg PO DAILY Qty: 30 3RF bisacodyl 10 mg suppository 10 mg [place] DAILY PRN (Reason: Constipation) guaifenesin [Diabetic Tussin EX] 100 mg/5 mL liquid 200 mg PO Q4H PRN (Reason: cough) insulin lispro protamin-lispro [Humalog Mix 75-25 KwikPen] 100 unit/mL (75-25) insulin pen 17 unit SQ BID insulin glargine [Lantus Solostar U-100 Insulin] 100 unit/mL (3 mL) insulin pen 15 unit SQ HS mecobalamin (vitamin B12) 1,000 mcg tablet,chewable 750 mcg PO DAILY gabapentin 400 mg capsule 400 mg PO TID 30 Days Qty: 90 5RF tramadol 50 mg tablet 50 mg PO QID Qty: 120 2RF loperamide 2 MG capsule 2 mg PO Q4HP PRN (Reason: Diarrhea) aspirin 81 MG tablet,chewable 81 mg PO DAILY docusate calcium 240 MG capsule 240 mg PO DAILYP PRN (Reason: Constipation) lactulose 10 GM/15 ML solution 20 g PO DAILYP PRN (Reason: Constipation) sennosides-docusate sodium [Senexon-S] 8.6-50 mg Tablet 2 tab-cap PO BID cyanocobalamin (vitamin B-12) [Vitamin B-12] 250 mcg Tablet 750 mcg PO DAILY Vraylar 3 mg Capsule 3 mg PO DAILY levetiracetam [Keppra] 500 mg tablet 500 mg PO BID acetaminophen 500 MG tablet 500 mg PO Q4HP PRN (Reason: Fever Or Pain) omeprazole 20 MG capsule,delayed release(DR/EC) 20 mg PO Q48H levothyroxine 50 MCG tablet 50 mcg PO DAILY duloxetine 60 mg capsule,delayed release(DR/EC) 60 mg PO DAILY trazodone 100 MG tablet 100 mg PO HS Referrals Follow up/Referrals: Provider,Referral, MD [Primary Care Provider] - See instructions Clinical Impressions Clinical Impression: Acute on chronic respiratory failure with hypoxia and hypercapnia, Right lower lobe pneumonia, Sepsis, Constipation Discharge ED Provider: Rabia Putnam General Adult HPI General Chief complaint: Shortness of Breath/Dyspnea Stated complaint: SOA Time Seen by Provider: 03/10/23 08:05 History of Present Illness HPI narrative: This patient is a 62-year-old male with extensive past medical history including 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 According to nursing facility report, he was satting 78% on his home 2 L nasal cannula this morning upon the rounding. Unclear if he wore his BiPAP last night. Per EMS, upon their arrival he was hypoxic on 3 L nasal cannula, but he improved with increasing to 4 L nasal cannula. His oxygen saturation then maintained between 90 to 92%. Fingerstick glucose was noted to be within normal limits. He had progressively improving mental status during transport and upon arrival. Patient currently complains of chest and abdominal pain, but otherwise history is difficult to obtain given his baseline mental status. He is oriented to person and place but not time. Related Data Home Medications Medication Instructions Recorded Confirmed atorvastatin 40 mg tablet (Lipitor) 40 mg PO HS Cholesterol 03/24/17 03/10/23 isosorbide mononitrate 30 mg 30 mg PO DAILY Chest Pain 04/11/17 03/10/23 tablet,extended release 24 hr folic acid 0.8 mg capsule 0.8 mg PO DAILY Supplement 09/30/17 03/10/23 magnesium oxide 400 mg PO HS Supplement 09/30/17 03/10/23 acetaminophen 500 mg tablet 500 mg PO Q4HP PRN Fever Or Pain 11/10/17 03/10/23 omeprazole 20 mg capsule,delayed 20 mg PO Q48H GERD 11/10/17 03/10/23 release levothyroxine 50 mcg tablet 50 mcg PO DAILY Thyroid 11/11/17 03/10/23 losartan 25 mg tablet (Cozaar) 12.5 mg PO DAILY Hypertension 09/29/18 03/10/23 aspirin 81 mg chewable tablet 81 mg PO DAILY Heart Health 01/25/19 03/10/23 loperamide 2 mg capsule 2 mg PO Q4HP PRN Diarrhea 01/25/19 03/10/23 trazodone 100 mg tablet 100 mg PO HS sleep 02/24/20 03/10/23 tamsulosin 0.4 mg capsule (Flomax) 0.4 mg PO DAILY urinary retention 04/24/20 03/10/23 metformin 500 mg tablet 500 mg PO BID 10/30/20 03/10/23 docusate calcium 240 mg capsule 240 mg PO DAILYP PRN Constipation 02/09/21 03/10/23 lactulose 10 gram/15 mL oral 20 g PO DAILYP PRN Constipation 02/09/21 03/10/23 solution duloxetine 60 mg capsule,delayed 60 mg PO DAILY mood 10/17/21 03/10/23 release linagliptin 5 mg tablet (Tradjenta) 5 mg PO DAILY 10/17/21 03/10/23 tiotropium bromide 1.25 2 puff inhalation DAILY 10/17/21 03/10/23 mcg/actuation mist for inhalation (Spiriva Respimat) aluminum hydrox-magnesium carb 95 30 ml PO Q4HP PRN GI upset 11/21/22 03/10/23 mg-358 mg/15 mL oral suspension (Acid Gone Antacid) bisacodyl 5 mg tablet 10 mg PO DAILYP PRN Constipation 11/21/22 03/10/23 duloxetine 30 mg capsule,delayed 30 mg PO DAILY mood 11/21/22 03/10/23 release multivitamin 1 tab PO DAILY 11/21/22 03/10/23 polyethylene glycol 3350 17 gram 17 g PO DAILY 11/21/22 03/10/23 oral powder packet cariprazine 3 mg capsule (Vraylar) 3 mg PO DAILY 01/08/23 03/10/23 cyanocobalamin (vitamin B-12) 250 750 mcg PO DAILY 01/08/23 03/10/23 mcg tablet (Vitamin B-12) levetiracetam 500 mg tablet 500 mg PO BID seizure 01/08/23 03/10/23 (Keppra) sennosides 8.6 mg-docusate sodium 2 tab-cap PO BID 01/08/23 03/10/23 50 mg tablet (Senexon-S) bisacodyl 10 mg rectal suppository 10 mg [place] DAILY PRN Constipation 01/28/23 03/10/23 guaifenesin 100 mg/5 mL oral 200 mg PO Q4H PRN cough 01/28/23 03/10/23 liquid (Diabetic Tussin EX) insulin glargine 100 unit/mL (3 15 unit SQ HS 01/29/23 03/10/23 mL) subcutaneous pen (Lantus Solostar U-100 Insulin) insulin lispro protamine-lispro 17 unit SQ BID 01/29/23 03/10/23 100 unit/mL (75-25) subcutaneous pen (Humalog Mix 75-25 KwikPen) mecobalamin (vitamin B12) 1,000 750 mcg PO DAILY 01/29/23 03/10/23 mcg chewable tablet Previous Rx's Medication Instructions Recorded furosemide 40 mg tablet (Lasix) 40 mg PO DAILY #30 tabs 03/20/21 albuterol sulfate 90 mcg/actuation 2 inh inhalation QID PRN shortness 08/29/21 aerosol inhaler of breath or wheezing 90 days #8.5 grams spironolactone 50 mg tablet 50 mg PO DAILY #90 tabs 11/29/21 gabapentin 400 mg capsule 400 mg PO TID 30 days #90 caps 02/13/23 tramadol 50 mg tablet 50 mg PO QID #120 tabs 02/26/23 Allergies Allergy/AdvReac Type Severity Reaction Status Date / Time morphine [MORPHINE] Allergy Mild HURTS Verified 03/10/23 08:10 STOMACH nitroglycerin AdvReac Mild Nausea Verified 03/10/23 08:10 [facility] Disclaimer: The information contained in this section may have been updated after the patient was seen, as this information can be updated by other users. 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 CAD (coronary artery disease) CAD (coronary atherosclerotic disease) Celiac artery stenosis Chronic heart failure with preserved ejection fraction (HFpEF) Chronic subdural hematoma Chronic subdural hematoma Coronary arteriosclerosis in [place] artery Dyspnea on exertion Edema Extreme obesity Heart failure, NYHA class 2 HHD (hypertensive heart disease) HLD (hyperlipidemia) Hypertension with goal to be determined Hypertensive heart disease without heart failure Impingement syndrome of both shoulders Intolerance to BiPAP/CPAP Obesity Obesity, Class II, BMI 35-39.9, isolated (see actual BMI) Osteopenia Other hyperlipidemia Pain in left wrist Post-traumatic subdural hematoma Pulmonary emphysema Renal insufficiency Renal insufficiency Renal lesion SOB (shortness of breath) Soft tissue disorder, unspecified Subdural hematoma Subdural hematoma due to concussion Synovial plica syndrome of left knee Type 2 diabetes mellitus with pressure callus Surgical History History of arthroscopy of shoulder History of carpal tunnel release Family History Other Cancer Diabetes Social History Smoking Status: Current every day smoker tobacco type: cigarettes alcohol intake: never substance use type: denies use current occupational status: disabled Travel in the last 8 weeks: None caregiver/support person: Yes household members: caregiver housing: [facility] caffeine: No ROS Obtained: Yes unobtainable due to mental status Physical Exam General General appearance: obtunded and obese Comment: Sleeping but arouses to voice. In no acute distress. Head Head exam: atraumatic and normocephalic Eye Eye exam: Present normal appearance, PERRL and EOMI ENT ENT exam: Present normal exam, normal oropharynx, mucous membranes moist and normal external ear exam Neck Neck exam: Present normal inspection, full ROM and trachea midline; Absent tenderness Chest Chest inspection: Present normal inspection and symmetric chest wall rise; Absent tenderness Respiratory Respiratory exam: Present wheezes, prolonged expiratory phase and other (Diminished breath sounds bilaterally with faint wheezing. Prolonged expiratory phase noted.); Absent respiratory distress, stridor or accessory muscle use Cardiovascular Cardiovascular exam: Present normal rhythm and tachycardia Abdominal Exam Abdominal exam: Present soft; Absent distention, tenderness or guarding Extremities Exam Extremities exam: Present full ROM, normal capillary refill and other (chronic atrophy to BLE); Absent tenderness or edema Back Exam Back exam: Present normal inspection and full ROM; Absent tenderness Neurological Exam Neurological exam: Present CN II-XII intact and motor sensory deficit (chronic BLE spastic paralysis, at baseline); Absent oriented X3 (oriented to person and place but not time) Skin Skin exam: Present warm and dry Medical Decision Making Medical Records Medical records reviewed: Yes I reviewed the patient's medical records. Gaudencio Inquiry Pt receiving controlled substance: No Vital Signs: 03/10/23 08:11 03/10/23 09:16 03/10/23 10:21 Temperature 98.0 F Temperature Source Axillary Pulse Rate 129 H 121 H Pulse Rate [Right Brachial] 103 H Respiratory Rate 28 H 24 Blood Pressure 155/64 H 121/58 L Blood Pressure [Right Arm] 160/82 H Blood Pressure Mean [Right Arm] 108 Blood Pressure Source Blood Pressure Source [Right Arm] Automatic Cuff Blood Pressure Position Blood Pressure Position [Right Arm] Sitting 02 Sat by Pulse Oximetry 95 98 97 Oxygen Delivery Method Nasal Cannula BiPAP BiPAP Oxygen Flow Rate (LPM) 2 03/10/23 10:32 03/10/23 11:00 03/10/23 11:30 Temperature 102.5 F H Temperature Source Axillary Pulse Rate 124 H 122 H 117 H Pulse Rate [Right Brachial] Respiratory Rate 32 H 28 H Blood Pressure 120/57 L 130/67 141/76 H Blood Pressure [Right Arm] Blood Pressure Mean [Right Arm] Blood Pressure Source Automatic Cuff Blood Pressure Source [Right Arm] Blood Pressure Position Sitting Blood Pressure Position [Right Arm] 02 Sat by Pulse Oximetry 96 96 96 Oxygen Delivery Method BiPAP BiPAP BiPAP Oxygen Flow Rate (LPM) 03/10/23 11:00 03/10/23 11:32 03/10/23 12:00 Temperature Temperature Source Pulse Rate 122 H 120 H 117 H Pulse Rate [Right Brachial] Respiratory Rate Blood Pressure 130/67 141/76 H 141/69 H Blood Pressure [Right Arm] Blood Pressure Mean [Right Arm] Blood Pressure Source Blood Pressure Source [Right Arm] Blood Pressure Position Blood Pressure Position [Right Arm] 02 Sat by Pulse Oximetry 96 96 97 Oxygen Delivery Method BiPAP BiPAP BiPAP Oxygen Flow Rate (LPM) 03/10/23 12:30 03/10/23 13:00 Temperature 102.4 F H Temperature Source Axillary Pulse Rate 112 H 107 H Pulse Rate [Right Brachial] Respiratory Rate 26 H Blood Pressure 141/76 H 130/73 Blood Pressure [Right Arm] Blood Pressure Mean [Right Arm] Blood Pressure Source Blood Pressure Source [Right Arm] Blood Pressure Position Blood Pressure Position [Right Arm] 02 Sat by Pulse Oximetry 95 96 Oxygen Delivery Method BiPAP BiPAP Oxygen Flow Rate (LPM) Lab Data Lab results reviewed: Yes I reviewed the patient's lab results. Lab Results 03/10/23 08:01: WBC 19.0 H, RBC 3.93 L, Hgb 13.3 L, Hct 41.7 L, MCV 106.0 H, MCH 33.8 H, MCHC 31.9, RDW 14.9, Plt Count 361, MPV 7.8, Neut % (Auto) 86.1 H, Lymph % (Auto) 8.9 L, Maury % (Auto) 3.6, Eos % (Auto) 1.1, Baso % (Auto) 0.4, Neut # (Auto) 16.4 H, Lymph # (Auto) 1.7, Maury # (Auto) 0.7, Eos # (Auto) 0.2, Baso # (Auto) 0.1, Total Counted 100, Neutrophils % (Manual) 83 H, Lymphocytes % (Manual) 12, Monocytes % (Manual) 3, Eosinophils % (Manual) 2, Platelet Estimate Normal, Macrocytosis 2+, PT 9.8 L, INR 0.90, APTT 23.7, Sodium 141, Potassium 3.7, Chloride 100, Carbon Dioxide 30, Anion Gap 13.7, BUN 23 H, Creatinine 1.20, Estimated Creat Clear 80, Estimated GFR 61, Est GFR ( Amer) 74, Glucose 108 H, Calcium 9.2, Total Bilirubin 0.4, AST 26, ALT 23, Alkaline Phosphatase 94, Troponin I < 0.01, NT-Pro-B Natriuret Pep 71.9, Total Protein 8.4 H, Albumin 4.2, Globulin 4.2 H, Albumin/Globulin Ratio 1.0 L, Lipase 107 03/10/23 08:06: VBG pH 7.23 L, VBG pCO2 67.5 H, VBG pO2 29.3, VBG HCO3 27.4, VBG Total CO2 29.5 H, VBG O2 Saturation 44.8 L, VBG Base Excess -0.2 03/10/23 08:18: SARS-CoV-2 (PCR) Not detected, Influenza A Untype (PCR) Not detected, Influenza Type B (PCR) Not detected 03/10/23 09:00: Lactate 3.8 H 03/10/23 09:50: Urine Color Yellow, Urine Appearance Clear, Urine pH 6.0, Ur Specific [place] 1.025, Urine Protein Negative, Urine Glucose (UA) Negative, Urine Ketones Negative, Urine Blood Negative, Urine Nitrate Negative, Urine Bilirubin Negative, Urine Urobilinogen 0.2, Ur Leukocyte Esterase Negative, Urine RBC None, Urine WBC 3-5, Ur Squamous Epith Cells 3-5, Urine Bacteria Trace 03/10/23 09:58: VBG pH 7.27 L, VBG pCO2 48.2, VBG pO2 32.7, VBG HCO3 21.8 L, VBG Total CO2 23.3, VBG O2 Saturation 55.8, VBG Base Excess -5.1 L 03/10/23 12:01: Lactate 1.7, Troponin I < 0.01 03/10/23 08:01 03/10/23 08:01 Orders (Tests/Meds): ED MEDICATIONS Generic Name Dose Route Start Last Admin Trade Name Freq PRN Reason Stop Dose Admin Albuterol/Ipratropium 3 ml 03/10/23 18:00 Ipratropium/Albuterol 3 Ml Neb IH 04/09/23 17:59 Q6RT [facility] Heparin Sodium (Porcine) 5,000 unit 03/10/23 14:00 03/10/23 13:35 Heparin Sodium 5,000 Unit/Ml Vial SQ 04/09/23 13:59 5,000 unit Q8H [facility] Administration Vancomycin/PEG/NADA/Lysine/Water 1.75 gm in 350 mls @ 175 mls/hr 03/10/23 11:00 03/10/23 11:30 Vancomycin 1.75gm/350ml (Peg) Premix IV 03/20/23 10:59 175 mls/hr Q18H [facility] Administration Azithromycin 500 mg/ Sodium 250 mls @ 250 mls/hr 03/11/23 10:00 Chloride IV 03/21/23 09:59 Q24H [facility] Cefepime HCl 2 gm/ Sodium 100 mls @ 200 mls/hr 03/10/23 22:00 Chloride IV 03/20/23 21:59 Q12H [facility] Sodium Chloride 10 ml 03/10/23 10:11 Sodium Chloride 0.9% 10ml Syr (Rad Only) IV 04/09/23 10:10 NEEDED PRN Maintain IV Site Sodium Chloride 3 ml 03/10/23 11:24 Sodium Chloride 3% 15ml [facility] 04/09/23 11:23 ONCE PRN INDUCE SPUTUM [employer]LECTION Discontinued Medications Generic Name Dose Route Start Last Admin Trade Name Freq PRN Reason Stop Dose Admin Acetaminophen 1,000 mg 03/10/23 11:33 03/10/23 11:34 Acetaminophen 1,000mg/100ml Vial IV 03/10/23 11:34 1,000 mg ONCE ONE Administration Albuterol/Ipratropium 9 ml 03/10/23 08:07 03/10/23 08:18 Ipratropium/Albuterol 3 Ml [facility] 03/10/23 08:08 9 ml ONCE ONE Administration Lactated Ringer's 500 mls @ 999 mls/hr 03/10/23 08:37 03/10/23 08:43 Lactated Ringer's 1000 Ml Bag IV 03/10/23 09:07 999 mls/hr .Q31M ONE Administration Lactated Ringer's 500 mls @ 999 mls/hr 03/10/23 09:59 03/10/23 10:19 Lactated Ringer's 1000 Ml Bag IV 03/10/23 10:29 999 mls/hr .Q31M ONE Administration Cefepime HCl 2 gm/ Sodium 100 mls @ 200 mls/hr 03/10/23 09:59 03/10/23 10:23 Chloride IV 03/10/23 10:28 200 mls/hr ONCE ONE Administration Azithromycin 500 mg/ Sodium 250 mls @ 250 mls/hr 03/10/23 10:00 03/10/23 10 :24 Chloride IV 03/10/23 10:01 250 mls/hr ONCE ONE Administration Iopamidol 70 ml 03/10/23 10:11 03/10/23 10:12 Iopamidol-370 (76%);100ml Bottle IV 03/10/23 10:12 70 ml ONCE ONE Administration Methylprednisolone Sodium Succinate 125 mg 03/10/23 09:59 03/10/23 10:20 Methylprednisolone Sod Succ 125mg Vial IV 03/10/23 10:00 125 mg ONCE ONE Administration Miscellaneous 1 each 03/10/23 10:00 03/10/23 10:29 Vancomycin Consult Request NOTAPPLIC 04/09/23 09:59 1 each [facility] Administration Sodium Chloride 50 ml 03/10/23 10:11 03/10/23 10:12 0.9 % Sodium Chloride 50 Ml Vial IV 03/10/23 10:12 50 ml ONCE ONE Administration ORDERS Category Date Time Status CT abdomen pelvis w con Stat Cat Scan 03/10/23 09:[address] angio chest PE protocol Stat Cat Scan 03/10/23 09:[address] head/brain wo con Stat Cat Scan 03/10/23 09:04 Completed Pulmonology Consult [Consult to Pulmonology] [CONS] Cons 03/10/23 13:33 Active Routine XR chest portable Stat Exams 03/10/23 08:06 Completed Activated Partial Thrombo Time Stat Lab 03/10/23 08:01 Completed Brain Natriuretic Peptide Stat Lab 03/10/23 08:01 Completed Complete Blood Count Auto Diff AMLAB Lab 03/11/23 06:00 Ordered Complete Blood Count Auto Diff Stat Lab 03/10/23 08:01 Completed Comprehensive Metabolic Panel AMLAB Lab 03/11/23 06:00 Ordered Comprehensive Metabolic Panel Stat Lab 03/10/23 08:01 Completed Lactic Acid Stat Lab 03/10/23 09:00 Completed Lactic Acid Stat Lab 03/10/23 12:01 Completed Lipase Stat Lab 03/10/23 08:01 Completed Magnesium AMLAB Lab 03/11/23 06:00 Ordered Prothrombin Time INR Stat Lab 03/10/23 08:01 Completed Rapid PCR Covid and Flu A/B Stat Lab 03/10/23 08:18 Completed Troponin I Q3H Lab 03/10/23 12:01 Completed Troponin I Q3H Lab 03/10/23 14:15 Ordered Troponin I Stat Lab 03/10/23 08:01 Completed Urinalysis and Microscopic Stat Lab 03/10/23 09:50 Completed Blood Culture Stat Micro 03/10/23 08:55 Received Sputum Culture & Gram Stain Stat Micro 03/10/23 11:24 Received Venous Blood Gas Stat RT 03/10/23 08:06 Completed Venous Blood Gas Stat RT 03/10/23 09:58 Completed ECG initial Besson Routine Y 03/10/23 08:07 Completed ECG Data Tracing #1: I reviewed this ECG and interpreted as documented below: Sinus tachycardia with a ventricular rate of [address] changes concerning for ischemia. No significant changes noted from prior EKG. ECG initial impression date: 03/10/23 ECG initial impression time: 08:08 Medical Decision Narrative: In summary, this patient is a 62-year-old male presenting to the Emergency Department for evaluation of low oxygen saturations at his nursing facility. Differential diagnoses considered include but are not limited to COPD exacerbation, CHF exacerbation, acute on chronic respiratory failure, BiPAP noncompliance, CO2 narcosis, pneumonia, PE, ACS. Ruling out the most morbid conditions drove assessment. 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 This complicates all aspects of care by increasing patient's risk for morbidity. I reviewed patient's past medical records and noted previous evaluation in December of last year for respiratory failure and likely aspiration while eating. On exam, the patient is able to answer simple questions but does not provide complex history. He does complain of some abdominal and chest pain. He is in no acute distress with reassuring oxygen saturation on 4 L nasal cannula, up from his baseline of 2 L. Workup included CBC, CMP, troponin, BNP, VBG, lipase, chest x-ray, and EKG. EKG does not demonstrate any acute concerns when compared to prior EKG. He was given 3 DuoNebs to assess for improvement in his respiratory status. On reassessment, patient had minimal improvement. Labs demonstrated decompensated respiratory failure, so decision was made to put him on BiPAP. He has a significant leukocytosis, so lactic and blood cultures were added with concern for possible sepsis. Full sepsis bolus was not administered, as patient has respiratory failure and history of CHF. He was given 500 cc bolus of IV fluids, and I will continue to reassess for improvement. On subsequent reassessments, the patient tolerated the 500 cc bolus of IV fluids well. Given this, he was given a full liter bolus of IV fluids. With concerns for sepsis, likely related to pneumonia, he was given IV vancomycin, cefepime, and azithromycin. He was also found to be febrile, so he was given IV acetaminophen.VBG improved, but the patient remains somnolent. Given persistent altered mental status despite improvement in VBG on BiPAP as well as his respiratory failure with complaints of abdominal pain, decision was made to order CT head without contrast, CTA of the chest, and CT abdomen pelvis with IV contrast. I independently interpreted CT scans prior to the radiologist read and noted concerns for right lower lobe pneumonia without other obvious acute concern. He does have constipation. Please see their read for final interpretation. Patient was monitored in the emergency department for several hours with close monitoring of his respiratory and neurologic status. Ultimately, he was deemed to be appropriate for admission for acute on chronic hypercapnic and hypoxic respiratory failure and sepsis secondary to pneumonia. I called and had an interactive discussion with Dr. Go the hospitalist who graciously admitted t he patient for further evaluation and management. Critical Care Critical Care Time Critical Care Time: Yes Attestation: On 03/10/23, the high probability of a clinically significant, sudden or life th reatening deterioration of the following system(s) (respiratory, immunologic, cardiovascular, neurologic) required my full and direct attention, intervention and personal management. The time I documented below is in addition to time spent performing reported procedures but includes the following listed in this critical care notation. Total Time Total Critical Care Time: 30
[2023-03-10 08:13] LABS: VBG Base Excess -0.2 mmol/L (-2.4-2.3); VBG HCO3 27.4 mmol/L (23-30); VBG Oxygen Saturation 44.8 % (50-70); VBG PCO2 67.5 mmol/L (35-51); VBG PH 7.23 mmol/L (7.31-7.41); VBG PO2 29.3 mmol/L (28-40); VBG Total CO2 29.5 mmol/L (23-27)
--- NOTE | 2023-03-10 08:17 | PC.NURSE ---
male pure-wick placed on pt
[2023-03-10] MEDS: IPRATROPIUM/ALBUTEROL 3 ML NEB 9 ML IH (08:18)
[2023-03-10 08:22] LABS: Coronavirus 19, PCR Not Detected (NotDetected); Influenza A, PCR Not Detected (NotDetected); Influenza B, PCR Not Detected (NotDetected)
[2023-03-10 08:26] LABS: Basophils # 0.1 K/mm3 (0-0.2); Basophils % 0.4 % (0.1-2.0); Eosinophils # 0.2 K/mm3 (0.0-0.4); Eosinophils % 1.1 % (0.1-12.0); Hematocrit 41.7 % (42.0-52.0); Hemoglobin 13.3 g/dL (14.1-18.0); Lymphocytes # 1.7 K/mm3 (0.7-4.5); Lymphocytes % 8.9 % (10-50); Mean Corpuscular HGB Conc 31.9 g/dL (31.8-35.4); Mean Corpuscular Hemoglobin 33.8 pg (27.0-31.2); Mean Platelet Volume 7.8 fl (7.4-10.4); Monocytes # 0.7 K/mm3 (0.1-1.0); Monocytes % 3.6 % (1.7-9.3); Neutrophils # 16.4 K/mm3 (1.8-7.8); Neutrophils % 86.1 % (37.0-80.0); Platelet Count 361 K/mm3 (142-424); Red Blood Count 3.93 M/mm3 (4.60-6.20); Red Cell Distribution Width 14.9 % (11.5-17.5)
--- NOTE | 2023-03-10 08:29 | PC.NURSE ---
RT called to place pt on bipap per MD.
--- NOTE | 2023-03-10 08:31 | PC.NURSE ---
radiology called for xray.
[2023-03-10 08:32] LABS: MANUAL DIFFERENTIAL MANUAL DIFFERENTIAL (MANUAL DIFF)
[2023-03-10 08:34] LABS: Activated Partial Thrombo Time 23.7 seconds (22.8-30.6); Prothrombin Time 9.8 seconds (10.1-12.5)
--- NOTE | 2023-03-10 08:35 | PC.NURSE ---
pt placed on bipap at this time. settings per RT 04/08, rate-18 fio2-50%.
--- NOTE | 2023-03-10 08:37 | PC.NURSE ---
RT at BS to place pt on bipap
[2023-03-10] MEDS: LACTATED RINGERS 1000ML 500 ML 999 ML IV ×2 (08:43→10:19)
--- NOTE | 2023-03-10 08:43 | PC.NURSE ---
RAD at for CXR
[2023-03-10 08:56] LABS: Eosinophils % 2 % (0-3); Lymphocytes % 12 % (10-50); Macrocytosis 2+; Monocytes % 3 % (2-9); Neutrophils % 83 % (42-76); Platelet Estimate Normal; Total Cells Counted 100
--- NOTE | 2023-03-10 09:04 | CT_ITS ---
FINAL REPORT TECHNIQUE: Axial CT images were performed through the head. Coronal reformatted images were submitted. This study was performed with techniques to keep radiation doses as low as reasonably achievable (ALARA). Individualized dose reduction techniques using automated exposure control or adjustment of mA and/or kV according to the patient's size were employed. CLINICAL HISTORY: AMS COMPARISON: 01/08/2023 FINDINGS: There is moderate atrophy. There is proportional ventriculomegaly. There is abnormal decreased attenuation in the deep white matter. There is no evidence of hemorrhage. There is no mass or edema identified. There is no abnormal extra-axial fluid seen. There is lobular mucoperiosteal thickening in the sphenoid sinuses consistent with chronic sinusitis. IMPRESSION: Moderate atrophy and ventriculomegaly. Chronic microvascular ischemia. Chronic sphenoid sinusitis. Reviewed, Interpreted and Dictated by Lm Stallworth MD Transcribed by Faith Wolfe Authenticated and . [facility]
--- NOTE | 2023-03-10 09:04 | CT_ITS ---
FINAL REPORT TECHNIQUE: Postcontrast axial images of the chest were performed in a CTA protocol. This study was performed with techniques to keep radiation doses as low as reasonably achievable, (ALARA). Individualized dose reduction technique using automated exposure control or adjustment of mA and/or kV according to the patient's size were employed. CLINICAL HISTORY: respiratory failure COMPARISON: 01/08/2023 FINDINGS: Large amount of fat is seen in the medial sternum. The heart is normal in size. No adenopathy is identified. No pleural or pericardial effusion is identified. The thoracic aorta is normal in caliber with no focal aneurysm or dissection identified. There is no filling defect to suggest pulmonary embolism. There is dense airspace opacity in the right upper and lower lobes likely due to acute pneumonia. Left lung is clear. The images of the upper abdomen are unremarkable. IMPRESSION: No evidence for PE on this exam. Acute right lung pneumonia. Reviewed, Interpreted and Dictated by Lm Stallworth MD Transcribed by Serenity Renae Authenticated and [facility]
--- NOTE | 2023-03-10 09:04 | CT_ITS ---
FINAL REPORT TECHNIQUE: After the administration of intravenous contrast, axial images were obtained through the abdomen and pelvis by computed tomography. This study was performed with technique to keep radiation doses as low as reasonably achievable, (ALARA). Individualized dose reduction techniques using automated exposure control or adjustment of the MA and/or KV according to the patient's size were employed. CLINICAL HISTORY: lower abdominal pain, AMS, SIRS + FINDINGS: Abdomen: The lung bases demonstrate dense airspace infiltrate at the right lung base. The liver is normal in size and attenuation. Gallbladder is distended. The spleen is unremarkable. The adrenals are normal. The pancreas is unremarkable. There are small benign renal cysts bilaterally. The kidneys otherwise enhance appropriately. The aorta is normal in caliber. There is no free fluid or adenopathy. Pelvis: The appendix is not identified. The urinary bladder is decompressed by Stephens catheter. There is moderate stool in the colon. Mild wall thickening is seen of the inferior rectum which may be due to mild proctitis. There is no free fluid or adenopathy. IMPRESSION: Distended gallbladder. Moderate stool in the colon. Mild wall thickening of the inferior rectum which may be due to mild proctitis. Reviewed, Interpreted and Dictated by Lm Stallworth MD Transcribed by Serenity Renae Authenticated and . [facility]
--- NOTE | 2023-03-10 09:20 | PC.NURSE ---
lab called for update on pending lab results.
[2023-03-10 09:34] LABS: Alanine Aminotransferase 23 U/L (12-78); Albumin Level 4.2 g/dl (3.5-5.0); Alkaline Phosphatase 94 U/L (38-126); Anion Gap 13.7 mEq/L (5-15); Aspartate Amino Transferase 26 U/L (17-59); Bilirubin,Total 0.4 mg/dl (0.2-1.3); Blood Urea Nitrogen 23 mg/dl (9-20); Calcium 9.2 mg/dl (8.4-10.2); Carbon Dioxide 30 mmol/L (22.0-30.0); Creatinine Clearance Estimated 80 mL/min (50-200); Estimated Glomerular Filt Rate 61 ml/min (>60); GFR (African American) 74 ML/MIN (>60); Globulin 4.2 g/dL (1.3-3.2); Glucose 108 mg/dl (74-100); Lipase 107 U/L (23-300); Total Protein,Serum 8.4 g/dl (6.3-8.2)
[2023-03-10 09:40] LABS: Chloride 100 mmol/L (98-107); Potassium 3.7 mmoL/L (3.5-5.1); Sodium 141 mmol/L (136-145)
[2023-03-10 09:53] LABS: Microscopic, Urine URINE MICROSCOPIC (MICROSCOPIC)
[2023-03-10 09:53] LABS: Lactic Acid 3.8 mmol/L (0.7-2.1)
[2023-03-10 09:53] LABS: NT Pro Brain Natriuretic Pep. 71.9 pg/mL (0-125)
[2023-03-10 09:55] LABS: Troponin I < 0.01 ng/ml (0.00-0.034)
[2023-03-10 09:56] LABS: Appearance,Urine CLEAR (Clear); Bilirubin,Urine Negative (Negative); Blood, Urine Negative (Negative); Color,Urine YELLOW (Yellow); Glucose,Urine (UA) Negative (Negative); Ketones,Urine Negative (Negative); Leukocyte Esterase,Urine Negative (Negative); Nitrate,Urine Negative (Negative); Protein,Urine Negative (Negative); Specific Gravity, Urine 1.025 (1.005-1.030); Urobilinogen,Urine 0.2 EU/dl (0.2)
--- NOTE | 2023-03-10 09:57 | PC.NURSE ---
Dr. Putnam at to reevaluate pt
--- NOTE | 2023-03-10 10:04 | PC.NURSE ---
repeat vbg drawn at this time. pt going for ct scan, switched to non-rebreather for transport- sats 97%.
--- NOTE | 2023-03-10 10:08 | PC.NURSE ---
PT gone to CT via stretcher
[2023-03-10 10:11] LABS: Bacteria,Urine Trace /lpf
[2023-03-10 10:12] LABS: VBG Base Excess -5.1 mmol/L (-2.4-2.3); VBG HCO3 21.8 mmol/L (23-30); VBG Oxygen Saturation 55.8 % (50-70); VBG PCO2 48.2 mmol/L (35-51); VBG PH 7.27 mmol/L (7.31-7.41); VBG PO2 32.7 mmol/L (28-40); VBG Total CO2 23.3 mmol/L (23-27)
[2023-03-10] MEDS: IOPAMIDOL-370 (76%);100ML BOTTLE 70 ML IV (10:12)
[2023-03-10] MEDS: 0.9 % SODIUM CHLORIDE 50 ML VIAL IV (10:12)
--- NOTE | 2023-03-10 10:17 | P.CONPHA_ITS ---
Pharmacy Consult Date: 03/10/23 Time: 10:18 Referring provider: DR. PERALES Reason for Consult:: VANCOMYCIN DOSING Allergies Allergy/AdvReac Type Severity Reaction Status Date / Time morphine [MORPHINE] Allergy Mild HURTS Verified 03/10/23 08:10 STOMACH nitroglycerin AdvReac Mild Nausea Verified 03/10/23 08:10 Home Medications Medication Instructions Recorded Confirmed Type atorvastatin 40 mg tablet (Lipitor) 40 mg PO HS Cholesterol 03/24/17 03/10/23 History isosorbide mononitrate 30 mg 30 mg PO DAILY Chest Pain 04/11/17 03/10/23 History tablet,extended release 24 hr folic acid 0.8 mg capsule 0.8 mg PO DAILY Supplement 09/30/17 03/10/23 History magnesium oxide 400 mg PO HS Supplement 09/30/17 03/10/23 History acetaminophen 500 mg tablet 500 mg PO Q4HP PRN Fever Or Pain 11/10/17 03/10/23 History omeprazole 20 mg capsule,delayed 20 mg PO Q48H GERD 11/10/17 03/10/23 History release levothyroxine 50 mcg tablet 50 mcg PO DAILY Thyroid 11/11/17 03/10/23 History losartan 25 mg tablet (Cozaar) 12.5 mg PO DAILY Hypertension 09/29/18 03/10/23 History aspirin 81 mg chewable tablet 81 mg PO DAILY Heart Health 01/25/19 03/10/23 History loperamide 2 mg capsule 2 mg PO Q4HP PRN Diarrhea 01/25/19 03/10/23 History trazodone 100 mg tablet 100 mg PO HS sleep 02/24/20 03/10/23 History tamsulosin 0.4 mg capsule (Flomax) 0.4 mg PO DAILY urinary retention 04/24/20 03/10/23 History metformin 500 mg tablet 500 mg PO BID 10/30/20 03/10/23 History docusate calcium 240 mg capsule 240 mg PO DAILYP PRN Constipation 02/09/21 03/10/23 History lactulose 10 gram/15 mL oral 20 g PO DAILYP PRN Constipation 02/09/21 03/10/23 History solution furosemide 40 mg tablet (Lasix) 40 mg PO DAILY #30 tabs 03/20/21 03/10/23 Rx albuterol sulfate 90 mcg/actuation 2 inh inhalation QID PRN shortness 08/29/21 03/10/23 Rx aerosol inhaler of breath or wheezing 90 days #8.5 grams duloxetine 60 mg capsule,delayed 60 mg PO DAILY mood 10/17/21 03/10/23 History release linagliptin 5 mg tablet (Tradjenta) 5 mg PO DAILY 10/17/21 03/10/23 History tiotropium bromide 1.25 2 puff inhalation DAILY 10/17/21 03/10/23 History mcg/actuation mist for inhalation (Spiriva Respimat) spironolactone 50 mg tablet 50 mg PO DAILY #90 tabs 11/29/21 03/10/23 Rx aluminum hydrox-magnesium carb 95 30 ml PO Q4HP PRN GI upset 11/21/22 03/10/23 History mg-358 mg/15 mL oral suspension (Acid Gone Antacid) bisacodyl 5 mg tablet 10 mg PO DAILYP PRN Constipation 11/21/22 03/10/23 History duloxetine 30 mg capsule,delayed 30 mg PO DAILY mood 11/21/22 03/10/23 History release multivitamin 1 tab PO DAILY 11/21/22 03/10/23 History polyethylene glycol 3350 17 gram 17 g PO DAILY 11/21/22 03/10/23 History oral powder packet cariprazine 3 mg capsule (Vraylar) 3 mg PO DAILY 01/08/23 03/10/23 History cyanocobalamin (vitamin B-12) 250 750 mcg PO DAILY 01/08/23 03/10/23 History mcg tablet (Vitamin B-12) levetiracetam 500 mg tablet 500 mg PO BID seizure 01/08/23 03/10/23 History (Keppra) sennosides 8.6 mg-docusate sodium 2 tab-cap PO BID 01/08/23 03/10/23 History 50 mg tablet (Senexon-S) bisacodyl 10 mg rectal suppository 10 mg [place] DAILY PRN Constipation 01/28/23 03/10/23 History guaifenesin 100 mg/5 mL oral 200 mg PO Q4H PRN cough 01/28/23 03/10/23 History liquid (Diabetic Tussin EX) insulin glargine 100 unit/mL (3 15 unit SQ HS 01/29/23 03/10/23 History mL) subcutaneous pen (Lantus Solostar U-100 Insulin) insulin lispro protamine-lispro 17 unit SQ BID 01/29/23 03/10/23 History 100 unit/mL (75-25) subcutaneous pen (Humalog Mix 75-25 KwikPen) mecobalamin (vitamin B12) 1,000 750 mcg PO DAILY 01/29/23 03/10/23 History mcg chewable tablet gabapentin 400 mg capsule 400 mg PO TID 30 days #90 caps 02/13/23 03/10/23 Rx tramadol 50 mg tablet 50 mg PO QID #120 tabs 02/26/23 03/10/23 Rx New Prescriptions to Start Prescriptions: Height: 1.7 m Weight: 90.718 kg Laboratory Results:: Laboratory Results - last 24 hr 03/10/23 08:01: WBC 19.0 H, RBC 3.93 L, Hgb 13.3 L, Hct 41.7 L, MCV 106.0 H, MCH 33.8 H, MCHC 31.9, RDW 14.9, Plt Count 361, MPV 7.8, Neut % (Auto) 86.1 H, Lymph % (Auto) 8.9 L, [place] % (Auto) 3.6, Eos % (Auto) 1.1, Baso % (Auto) 0.4, Neut # (Auto) 16.4 H, Lymph # (Auto) 1.7, [place] # (Auto) 0.7, Eos # (Auto) 0.2, Baso # (Auto) 0.1, Total Counted 100, Neutrophils % (Manual) 83 H, Lymphocytes % (Manual) 12, Monocytes % (Manual) 3, Eosinophils % (Manual) 2, Platelet Estimate Normal, Macrocytosis 2+, PT 9.8 L, INR 0.90, APTT 23.7, Sodium 141, Potassium 3.7, Chloride 100, Carbon Dioxide 30, Anion Gap 13.7, BUN 23 H, Creatinine 1.20, Estimated Creat Clear 80, Estimated GFR 61, Est GFR ( Amer) 74, Glucose 108 H, Calcium 9.2, Total Bilirubin 0.4, AST 26, ALT 23, Alkaline Phosphatase 94, Troponin I < 0.01, NT-Pro-B Natriuret Pep 71.9, Total Protein 8.4 H, Albumin 4.2, Globulin 4.2 H, Albumin/Globulin Ratio 1.0 L, Lipase 107 03/10/23 08:06: VBG pH 7.23 L, VBG pCO2 67.5 H, VBG pO2 29.3, VBG HCO3 27.4, VBG Total CO2 29.5 H, VBG O2 Saturation 44.8 L, VBG Base Excess -0.2 03/10/23 08:18: SARS-CoV-2 (PCR) Not detected, Influenza A Untype (PCR) Not detected, Influenza Type B (PCR) Not detected 03/10/23 09:00: Lactate 3.8 H 03/10/23 09:50: Urine Color Yellow, Urine Appearance Clear, Urine pH 6.0, Ur Specific Richardson 1.025, Urine Protein Negative, Urine Glucose (UA) Negative, Urine Ketones Negative, Urine Blood Negative, Urine Nitrate Negative, Urine Bilirubin Negative, Urine Urobilinogen 0.2, Ur Leukocyte Esterase Negative, Urine RBC None, Urine WBC 3-5, Ur Squamous Epith Cells 3-5, Urine Bacteria Trace 03/10/23 09:58: VBG pH 7.27 L, VBG pCO2 48.2, VBG pO2 32.7, VBG HCO3 21.8 L, VBG Total CO2 23.3, VBG O2 Saturation 55.8, VBG Base Excess -5.1 L Medical History: Medical History (Updated 03/10/23 @ 09:12 by Rabia Perales DO) Anemia Arthritis of sternoclavicular joint Breathing-related sleep disorder Bronchomalacia CAD (coronary artery disease) CAD (coronary atherosclerotic disease) Celiac artery stenosis Chronic heart failure with preserved ejection fraction (HFpEF) Chronic subdural hematoma Chronic subdural hematoma Coronary arteriosclerosis in [place] artery Dyspnea on exertion Edema Extreme obesity Heart failure, NYHA class 2 HHD (hypertensive heart disease) HLD (hyperlipidemia) Hypertension with goal to be determined Hypertensive heart disease without heart failure Impingement syndrome of both shoulders Intolerance to BiPAP/CPAP Obesity Obesity, Class II, BMI 35-39.9, isolated (see actual BMI) Osteopenia Other hyperlipidemia Pain in left wrist Post-traumatic subdural hematoma Pulmonary emphysema Renal insufficiency Renal insufficiency Renal lesion SOB (shortness of breath) Soft tissue disorder, unspecified Subdural hematoma Subdural hematoma due to concussion Synovial plica syndrome of left knee Type 2 diabetes mellitus with pressure callus Assessment and Plan Assessment and plan all Dx Assessment and Plan for all problems:: Pharmacokinetic dosing service Objective: Patient: Floor: Age: 62 yo Serum creatinine: 1.2 mg/dL Height: 67.0 Inches Weight (kg): 90.7 Assessment: IBW (kg): 66.10 Dosing wt(kg): 90.7 Estimated Creatinine clearance (ml/min): 58.1 CRCL method: Cockcroft and Gault using ibw(default). Drug selected: Vancomycin Loading dose (mg): 0 Vd (liters): 77.1 (factor used: 0.85 L/kg) Ozzie (hr-1): 0.053 Half life (hrs): 13.08 Recommended dose: 1750 mg Interval: 18 hrs Infusion time (hrs): 2.0 Predicted peak (mcg/mL): 35.0 Predicted trough (mcg/mL): 14.99 Total body weight is being used for vancomycin dosing. Recommendations: Give Vancomycin 1750 mg q 18 hrs with an expected Cpeak of 35.0 mcg/ml and an expected Ctrough of 14.99 mcg/ml. ----Vanco only - ignore for aminoglycosides----- CLvanco= 4.09 L/hr AUC 0-24 /ORTEGA Data: ORTEGA 0.5 mcg/mL: AUC/ORTEGA: 1141.0 ORTEGA 1.0 mcg/mL: AUC/ORTEGA: 570.5 --------- ORTEGA 1.5 mcg/mL: AUC/ORTEGA: 380.3 ORTEGA 2.0 mcg/mL: AUC/ORTEGA: 285.2
--- NOTE | 2023-03-10 10:18 | PC.NURSE ---
PT returned from CT
[2023-03-10] MEDS: METHYLPREDNISOLONE SOD SUCC 125MG VIAL 125 MG IV (10:20)
[2023-03-10] MEDS: CEFEPIME HCL 2 GM in 0.9 % SODIUM CHLORIDE 100 ML IV ×2 (10:23→21:11)
[2023-03-10] MEDS: AZITHROMYCIN 500 MG in 0.9 % SODIUM CHLORIDE 250 ML 250 MG IV (10:24)
[2023-03-10] MEDS: VANCOMYCIN CONSULT REQUEST 1 EACH NOTAPPLIC (10:29)
--- NOTE | 2023-03-10 11:03 | PC.NURSE ---
Dr. Putnam at bedside.
[2023-03-10] MEDS: VANCOMYCIN/WATER FOR INJ (PEG) 1.75 GM/350 ML PIGGYBACK IV (11:30)
--- NOTE | 2023-03-10 11:31 | PC.NURSE ---
RT at BS to suction pt
--- NOTE | 2023-03-10 11:33 | PC.NURSE ---
RT to suction.
[2023-03-10] MEDS: ACETAMINOPHEN 1,000MG/100ML VIAL 1000 MG IV (11:34)
[2023-03-10 12:20] LABS: Lactic Acid 1.7 mmol/L (0.7-2.1)
--- NOTE | 2023-03-10 12:21 | PC.NURSE ---
radiology called in regards to wait time results on ct scan.
[2023-03-10 12:34] LABS: Troponin I < 0.01 ng/ml (0.00-0.034)
--- NOTE | 2023-03-10 12:48 | PC.NURSE ---
ct called in regards to ct abdomen results.
[2023-03-10 13:04] LABS: Reflex Lactic Add Lactic Reflex
--- NOTE | 2023-03-10 13:24 | PC.NURSE ---
Hospitalist to call back.
[2023-03-10] MEDS: HEPARIN SODIUM 5,000 UNIT/ML VIAL 5000 UNIT SQ (13:35)
--- NOTE | 2023-03-10 13:35 | PC.NURSE ---
Nurse from [place] called for update. Advised nurse pt would be getting admitted.
--- NOTE | 2023-03-10 13:38 | P.HP_ITS ---
History of Present Illness *Admission Date: 03/10/23 *Reason for visit:: confusion *History of present illness: Patient is a poor historian. Able to answer simple questions but most of history obtained from ER and nursing documentation Mr. Blakely is a 62-year-old male who resides [facility]. He has a history significant for chronic spasticity paralysis of lower extremities, wheelchair-bound, chronic respiratory failure on 2 L nasal cannula, obesity, CHF, CKD, RAJAN on BiPAP, hyperlipidemia, emphysema, diabetes, schizoaffective disorder. He presented to the ER today for evaluation due to concern for hypoxia at his [place] [facility]. According to report he was satting in the high 70s on 2 L this morning upon rounding. Suspicion that he did not wear his BiPAP last night. EMS was called and upon their arrival he was still hypoxic on 3 L nasal cannula but improved with increased to 4 L. Brought to the ER for further evaluation. Fingerstick noted to be within normal limits. Initial VBG concerning for respiratory acidosis. Imaging concerning for right lower lobe pneumonia and leukocytosis of 19. Patient meeting sepsis criteria with fever and tachycardia. Initiated on antibiotics. Started on BiPAP for hypercapnia. On arrival to the floor, patient is alert and interactive. Slow to respond, resting comfortably on BiPAP. O2 sats in the 90s. Unable to give any history of events. [facility] Disclaimer: The information contained in this section may have been updated after the patient was seen, as this information can be updated by other users. Medical History (Updated 03/10/23 @ 15:38 by Montse Sarah RN) Acute respiratory failure with hypoxia and hypercarbia Anemia Anxiety Arthritis of sternoclavicular joint BPH (benign prostatic hyperplasia) Breathing-related sleep disorder Bronchomalacia CAD (coronary artery disease) CAD (coronary atherosclerotic disease) Celiac artery stenosis Chronic heart failure with preserved ejection fraction (HFpEF) Chronic subdural hematoma Chronic subdural hematoma COPD (chronic obstructive pulmonary disease) Coronary arteriosclerosis in ute artery Depression Dyspnea on exertion Edema Extreme obesity GERD (gastroesophageal reflux disease) Heart failure, NYHA class 2 HHD (hypertensive heart disease) HLD (hyperlipidemia) Hypertension with goal to be determined Hypertensive heart disease without heart failure Hypothyroid Impingement syndrome of both shoulders Intolerance to BiPAP/CPAP Obesity Obesity, Class II, BMI 35-39.9, isolated (see actual BMI) Osteopenia Other hyperlipidemia Pain in left wrist Post-traumatic subdural hematoma Pulmonary emphysema Renal insufficiency Renal insufficiency Renal lesion Seizure SOB (shortness of breath) Soft tissue disorder, unspecified Subdural hematoma Subdural hematoma due to concussion Synovial plica syndrome of left knee Type 2 diabetes mellitus with pressure callus Surgical History (Updated 03/10/23 @ 14:03 by Montse Sarah, RN) H/O cardiac catheterization H/O heart artery stent History of arthroscopy of shoulder History of carpal tunnel release Family History Other Cancer Diabetes Social History (Updated 03/10/23 @ 14:00 by Montse Sarah, [facility]) Smoking Status: Current every day smoker tobacco type: cigarettes alcohol intake: never substance use type: denies use current occupational status: disabled Travel in the last 8 weeks: None caregiver/support person: Yes household members: caregiver housing: [facility] caffeine: No Review of Systems Review of Systems Review of systems (narrative): 14 point review of systems performed, pertinent positives and negatives as per [facility] Meds Home Medications and Allergies Home Medications Medication Instructions Recorded Confirmed Type atorvastatin 40 mg tablet (Lipitor) 40 mg PO HS 03/24/17 03/10/23 History isosorbide mononitrate 30 mg 30 mg PO DAILY 04/11/17 03/10/23 History tablet,extended release 24 hr magnesium oxide 400 mg PO HS 09/30/17 03/10/23 History acetaminophen 500 mg tablet 500 mg PO Q4H PRN Fever Or Pain 11/10/17 03/10/23 History omeprazole 20 mg capsule,delayed 20 mg PO Q48H 11/10/17 03/10/23 History release levothyroxine 50 mcg tablet 50 mcg PO DAILY 11/11/17 03/10/23 History losartan 25 mg tablet (Cozaar) 12.5 mg PO DAILY 09/29/18 03/10/23 History aspirin 81 mg chewable tablet 81 mg PO DAILY 01/25/19 03/10/23 History loperamide 2 mg capsule 2 mg PO Q4H PRN Diarrhea 01/25/19 03/10/23 History trazodone 100 mg tablet 100 mg PO HS 02/24/20 03/10/23 History tamsulosin 0.4 mg capsule (Flomax) 0.4 mg PO DAILY 04/24/20 03/10/23 History metformin 500 mg tablet 500 mg PO BIDWMEAL 10/30/20 03/10/23 History docusate calcium 240 mg capsule 240 mg PO DAILY PRN Constipation 02/09/21 03/10/23 History lactulose 10 gram/15 mL oral 30 ml PO DAILY PRN Constipation 02/09/21 03/10/23 H istory solution furosemide 40 mg tablet (Lasix) 40 mg PO DAILY #30 tabs 03/20/21 03/10/23 Rx duloxetine 60 mg capsule,delayed 60 mg PO DAILY 10/17/21 03/10/23 History release linagliptin 5 mg tablet (Tradjenta) 5 mg PO DAILY 10/17/21 03/10/23 History tiotropium bromide 1.25 2 puff inhalation DAILY 10/17/21 03/10/23 History mcg/actuation mist for inhalation (Spiriva Respimat) spironolactone 50 mg tablet 50 mg PO DAILY #90 tabs 11/29/21 03/10/23 Rx aluminum hydrox-magnesium carb 95 30 ml PO Q4H PRN GI upset 11/21/22 03/10/23 History mg-358 mg/15 mL oral suspension (Acid Gone Antacid) bisacodyl 5 mg tablet 10 mg PO DAILY PRN Constipation 11/21/22 03/10/23 History duloxetine 30 mg capsule,delayed 30 mg PO DAILY 11/21/22 03/10/23 History release polyethylene glycol 3350 17 gram 17 g PO DAILY 11/21/22 03/10/23 History oral powder packet cariprazine 3 mg capsule (Vraylar) 3 mg PO DAILY 01/08/23 03/10/23 History cyanocobalamin (vitamin B-12) 250 750 mcg PO DAILY 01/08/23 03/10/23 History mcg tablet (Vitamin B-12) levetiracetam 500 mg tablet 500 mg PO BID 01/08/23 03/10/23 History (Keppra) sennosides 8.6 mg-docusate sodium 2 tab PO BID 01/08/23 03/10/23 History 50 mg tablet (Senexon-S) bisacodyl 10 mg rectal suppository 10 mg CA DAILY PRN Constipation 01/28/23 03/10/23 History insulin glargine 100 unit/mL (3 15 unit SQ HS 01/29/23 03/10/23 History mL) subcutaneous pen (Lantus Solostar U-100 Insulin) insulin lispro protamine-lispro 17 unit SQ BID 01/29/23 03/10/23 History 100 unit/mL (75-25) subcutaneous pen (Humalog Mix 75-25 KwikPen) gabapentin 400 mg capsule 400 mg PO TID 30 days #90 caps 02/13/23 03/10/23 Rx albuterol sulfate 90 mcg/actuation 2 inh inhalation QID PRN Shortness 03/10/23 03/10/23 History aerosol inhaler Of Breath Or Wheezing folic acid 800 mcg tablet 800 mcg PO DAILY 03/10/23 03/10/23 History guaifenesin 100 mg/5 mL oral 200 mg PO Q4H PRN Cough 03/10/23 03/10/23 History liquid (Diabetic Tussin EX) multivitamin with folic acid 400 1 tab PO DAILY 03/10/23 03/10/23 History mcg tablet (Tab-A-Laron) tramadol 100 mg tablet 100 mg PO QID 03/10/23 03/10/23 History New Prescriptions to Start Prescriptions: Allergies Allergy/AdvReac Type Severity Reaction Status Date / Time morphine [MORPHINE] Allergy Mild HURTS Verified 03/10/23 08:10 STOMACH nitroglycerin AdvReac Mild Nausea Verified 03/10/23 08:10 Exam Data for Last 24 hours Vital signs and Labs for Last 24 Hours: Temp Pulse Resp BP Pulse Ox O2 Del Method O2 Flow Rate 102.4 F H 107 H 26 H 130/73 96 BiPAP 2 03/10/23 13:00 03/10/23 13:00 03/10/23 13:00 03/10/23 13:00 03/10/23 13:00 03/10/23 13:00 03/10/23 08:11 Laboratory Results - last 24 hr 03/10/23 08:01: WBC 19.0 H, RBC 3.93 L, Hgb 13.3 L, Hct 41.7 L, MCV 106.0 H, MCH 33.8 H, MCHC 31.9, RDW 14.9, Plt Count 361, MPV 7.8, Neut % (Auto) 86.1 H, Lymph % (Auto) 8.9 L, [place] % (Auto) 3.6, Eos % (Auto) 1.1, Baso % (Auto) 0.4, Neut # (Auto) 16.4 H, Lymph # (Auto) 1.7, [place] # (Auto) 0.7, Eos # (Auto) 0.2, Baso # (Auto) 0.1, Total Counted 100, Neutrophils % (Manual) 83 H, Lymphocytes % (Manual) 12, Monocytes % (Manual) 3, Eosinophils % (Manual) 2, Platelet Estimate Normal, Macrocytosis 2+, PT 9.8 L, INR 0.90, APTT 23.7, Sodium 141, Potassium 3.7, Chloride 100, Carbon Dioxide 30, Anion Gap 13.7, BUN 23 H, Creatinine 1.20, Estimated Creat Clear 80, Estimated GFR 61, Est GFR ( Amer) 74, Glucose 108 H, Calcium 9.2, Total Bilirubin 0.4, AST 26, ALT 23, Alkaline Phosphatase 94, Troponin I < 0.01, NT-Pro-B Natriuret Pep 71.9, Total Protein 8.4 H, Albumin 4.2, Globulin 4.2 H, Albumin/Globulin Ratio 1.0 L, Lipase 107 03/10/23 08:06: VBG pH 7.23 L, VBG pCO2 67.5 H, VBG pO2 29.3, VBG HCO3 27.4, VBG Total CO2 29.5 H, VBG O2 Saturation 44.8 L, VBG Base Excess -0.2 03/10/23 08:18: SARS-CoV-2 (PCR) Not detected, Influenza A Untype (PCR) Not detected, Influenza Type B (PCR) Not detected 03/10/23 09:00: Lactate 3.8 H 03/10/23 09:50: Urine Color Yellow, Urine Appearance Clear, Urine pH 6.0, Ur Specific [place] 1.025, Urine Protein Negative, Urine Glucose (UA) Negative, Urine Ketones Negative, Urine Blood Negative, Urine Nitrate Negative, Urine Bilirubin Negative, Urine Urobilinogen 0.2, Ur Leukocyte Esterase Negative, Urine RBC None, Urine WBC 3-5, Ur Squamous Epith Cells 3-5, Urine Bacteria Trace 03/10/23 09:58: VBG pH 7.27 L, VBG pCO2 48.2, VBG pO2 32.7, VBG HCO3 21.8 L, VBG Total CO2 23.3, VBG O2 Saturation 55.8, VBG Base Excess -5.1 L 03/10/23 12:01: Lactate 1.7, Troponin I < 0.01 I & O for Last 24 hours: Intake & Output 03/07/23 03/08/23 03/09/23 03/10/23 23:59 23:59 23:59 23:59 Intake Total 1700 / 1700 Output Total 875 / 875 Balance 825 / 825 Weight 90.718 kg Constitutional Constitutional: mild distress, obese, chronically ill appearing and cooperative *Routine HEENT Exam Head: Present normocephalic and atraumatic Eye: Present PERRL ENT: Present mucous membranes moist Comments: thick neck *Routine Respiratory Exam Respiratory: Present rhonchi and normal respiratory effort; Absent prolonged expiratory phase, wheezes or crackles *Routine Cardiovascular Exam Cardiovascular: Present RRR, Normal S1 and Normal S2 *Routine Abdominal Exam Abdominal: Present soft and normoactive bowel sounds *Routine Rectal Exam Rectal:: deferred *Routine Genitalia Exam Genitalia:: deferred *Routine Skin Exam Skin: Present intact; Absent cyanosis *Routine Neurological Exam Neurological: Present alert; Absent altered mental status Comments: Moving upper extremities, not moving lower extremities. Alert and oriented to person, knows he is in the hospital. Assessment and Plan *Assessment and plan (1) Sepsis: Status: Acute Category: Medical Code(s): A41.9 - Sepsis, unspecified organism (2) Hypothyroidism, unspecified: Status: Chronic Qualifiers: Hypothyroidism type: acquired Qualified Code(s): E03.9 - Hypothyroidism, unspecified Category: Medical Code(s): E03.9 - Hypothyroidism, unspecified (3) HTN (hypertension): Status: Chronic Qualifiers: Hypertension type: primary hypertension Qualified Code(s): I10 - Essential (primary) hypertension Category: Medical Code(s): I10 - Essential (primary) hypertension (4) Schizoaffective disorder: Status: Acute Category: Medical Code(s): F25.9 - Schizoaffective disorder, unspecified (5) Type 2 diabetes mellitus with pressure callus: Status: Acute Category: Medical Code(s): E11.628 - Type 2 diabetes mellitus with other skin complications; L84 - Corns and callosities (6) RAJAN treated with BiPAP: Status: Chronic Category: Medical Code(s): G47.33 - Obstructive sleep apnea (adult) (pediatric) (7) Right lower lobe pneumonia: Status: Acute Category: Medical Code(s): J18.9 - Pneumonia, unspecified organism Plan Mr. Blakely is a 62-year-old male with multiple comorbidities who presented to the ER for altered mental status. Found to be septic with pneumonia and hypercapnic respiratory failure. Discussed case with ER, request admission for IV antibiotics, monitoring of cultures, and further treatment for sepsis and respiratory failure. Medicine agreed to admit. Pulmonology consulted to assist with hypercapnic failure and evaluation of RAJAN and emphysema along with treatment of pneumonia. Problems addressed as follows: Sepsis with hypercapnic respiratory failure secondary to pneumonia - fever of 102.4, leukocytosis of 19, worsening respiratory failure, pneumonia on chest imaging. Tachycardia 104. -Personally reviewed chest imaging, right lower lobe airspace disease. -Pulmonology consulted, appreciate their recommendations. Discussed case, continue vancomycin, cefepime, azithromycin. Sputum and blood cultures pending. -Continue DuoNebs every 6 hours scheduled -Continue BiPAP. Will work to obtain records from [facility] on current settings and logs to evaluate consistency of wear and efficacy of BiPAP at [facility] -CBC, CMP, magnesium ordered for the morning. Schizoaffective disorder: Continue Cymbalta 90 mg daily, gabapentin 400 mg tid, Keppra 500mg twice daily, Vraylar 3 mg daily Hypertension: Holding losartan in the setting of sepsis Hypothyroid: TSH 1.3 in December, continue levothyroxine 50 mcg daily Diabetes: A1c 5.7 the end of December (2 months ago) -Sliding scale insulin with fingersticks ACHS -Holding metformin and insulin glargine in the setting of elevated lactate adn normoglycemia Obesity and debility complicate all aspects of his care Holding trazodone nightly for sleep due to sedation Continue tamsulosin 0.4 mg daily for BPH Continue bowel regimen from [facility] Full code Lovenox 40 mg daily N.p.o., pending speech eval.
--- NOTE | 2023-03-10 14:11 | PC.NURSE ---
Report called to KAMAR Cm
--- NOTE | 2023-03-10 14:33 | PC.NURSE ---
arrived by stretcher from ED
--- OUTSIDE RECORDS SUMMARY | 2023-03-10 14:42 | XMS_ITS | Continuity of Care Document ---
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 Name Role Phone Gutierrez Johnson DPM Unavailable [...] NAIL(S) BY ANY METHOD(S); 6 OR MORE Periodic Oral Evaluation Complete Series Of Radiographic Images N Advance Directives Directive Yes / No Effective Date File Name No Information Encounters Encounter Description Practice Location Reason(s) For Visit Diagnoses Date Provider Providers Copied on Encounter [address] [place] [address], [address] [facility] [address], [place], [place], [id number], [place] tel:[phone] [facility] Tinea unguiumType 2 diabetes w diabetic peripheral angiopath w/o gangreneLong term (current) use of oral hypoglycemic drugs 8 Skrip Gutierrez. [address] [facility], [address], [place], [place], [id number], [place]. tel:[phone] Referring Provider: Gutierrez Mitchell. [address] [place] [address], [address] [facility] [address], [place], [place], [id number], [place] tel:[phone] [facility] Encounter for dental exam and cleaning w/o abnormal findings 8 Peace Ortiz Keri. [address] [facility], [address], [place], [place], [id number], [place]. tel:[phone] [place] [address], [address] [facility] [address], [place], [place], [id number], [place] tel:[phone] [facility] Tinea unguiumType 2 diabetes w diabetic peripheral angiopath w/o gangrene 7 Skrip Gutierrez. [address] [facility], [address], [place], [place], [id number], [place]. tel:[phone] Referring Provider: Gutierrez Mitchell. [address] [place] [address], [address] [facility] [address], [place], [place], [id number], tel:[phone] [facility] ear fullness (chief complaint) Impacted cerumen, bilateral Dec- 7 Sudarshan-Hard cyndee Tanika. [address] [facility], [address], [place], [address], [place]. Referring Provider: Gutierrez Mitchell. [address] [place] [address], [address] [place] [address] [address], [place], [place], [id number], [place] tel:[phone] [facility] Tinea unguiumType 2 diabetes mellitus with hyperglycemia Sep-0 7 Skrip Gutierrez. [address] [facility], [address], [place], [place], [id number], [place]. tel:[phone] Referring Provider: Gutierrez Mitchell. [facility], [address] [place], [place] [address] [address], [place], [place], [id number], [place] tel:[phone] [facility] No Information 7 Bernadette Meyers. [address] [facility], [address], [place], [address], [place]. [facility], [address] [place], [place] [address], [place], [place], [id number], [place] tel:[phone] [facility] Type 2 diabetes mellitus without complications Age-related nuclear cataract, bilateral 7 Bernadette Meyers. [address] [facility], [address], [place], [address], [place]. [facility], [address] [place], [place] [address], [place], [id number], [place] tel:[phone] [facility] Tinea unguiumType 2 diabetes mellitus with hyperglycemia Pain in right toe(s)Pain in left toe(s) 7 Skrip Gutierrez. [address] [facility], [address], [place], [place], [id number], [place]. tel:[phone] [facility], [address] [place], [place] [address] [address], [place], [place], [id number], [place] tel:[phone] [facility] Encounter for dental exam and cleaning w/o abnormal findings 7 Oswald Ryan. [address] [facility], [address], [place], [address], [place]. tel:[phone] [facility], [address] [place], [place] [address], [place], [place], [id number], [place] tel:[phone] [facility] Mycotic Nails (chief complaint) Tinea unguiumType 2 diabetes mellitus with hyperglycemia Pain in left toe(s)Pain in right toe(s) Apr 7 Skrip Gutierrez. [address] [facility], [address], [place], [place], [id number], [place]. tel:[phone] [facility], [address] [place], [place] [address], [place], [place], [id number], tel:[phone] [facility] Dental caries, unspecified 7 Oswald Ryan. [address] [facility], [address], [place], [facility], . tel:[phone] [facility], [address] [place] [address], [place], [place], [id number], tel:[phone] [facility] Nail Pain (chief complaint) Tinea unguiumPain in right toe(s)Pain in left toe(s)Type 2 diabetes mellitus with hyperglycemia 7 Alex Whitley. [address] [facility], [address], [place], [place], [id number], . tel:[phone] [place] [address], [address] [place] [address] [address], [place], [place], [id number], tel:[phone] [facility] Encounter for dental exam and cleaning w/o abnormal findings 6 Oswald Ryan. [address] [facility], [address], [place], [facility], . tel:[phone] [place] [address], [address] [place] [address], [place], [id number], tel:[phone] [facility] No Information 6 [place], [place]. tel:[phone] Family History Family Member Type Diagnosis Age At Onset No Information Payers Payer name Insurance type Covered libertarian ID Authoriza tion(s) Medicare [facility] [id number] Medicaid [facility] [id number] Social History Type Description Quantity Date Captured Comments Alcohol Use Details Unknown Caffeine Use Details Unknown Tobacco Use Status No Information Smoking Status No Information Sex Male Chief Complaint And Reason For Visit No Information Reason For Referral Reason For Referral No Information Plan Of Treatment Date Type Action Status Patient Education Diabetes Foot Health: C are Instructio~ completed History Of Present Illness Encounter Date Complaint History Of Prese nt Illness ear fullness The symptoms are reported as being moderate. The symptoms occur constantly. He states the symptoms are chronic. i feel stopped up. i have a little trouble hearing when i have wax build up. Pt has history of cerumen impaction and itchy ears. Patient is not interested in audiology services at this time. Pt agrees to ear exam and cleaning if needed. Mycotic Nails Attending umair hernandez has requested treatment for diabetic patient with painful, thickened, discolored nails with subungual debris which are difficult to treat. This is a long standing problem in which no other therapies worked or were successful in treatment of this problem. Patient complains of pain and discomfort and is unable to reach their feet. Relief from painful nails has been achieved in the past by debridement. Nail Pain Attending umair hernandez has requested treatment for diabetic patient with painful, thickened, discolored nails with subungual debris which are difficult to treat. This is a long standing problem in which no other therapies worked or were successful in treatment of this problem. Patient complains of pain and discomfort and is unable to reach their feet. Relief from painful nails has been achieved in the past by debridement. Functional Status Date Functional Assessmen t No Information Instructions Date Instruction Additional Infor marga Debridement and redu ction of painful mycotic nails x10 performed with 5 1/2 curved jaw double spring nail clippers and powered dremel tool w/ sanding disk and application of topical antifungal. Follow up 2-3 months for diabetic foot care. Related to Tinea unguium This patient is curr ently receiving care from the cabinet worker. The primary care physician has reviewed the most current consult note and plan of care, has evaluated patient, and agrees with the medical necessity of both care delivered and the proposed plan of care. If care for this patient is to be discontinued, [facility] will be notified immediately and this order will be discontinued Related to Type 2 diabetes w diabetic peripheral angiopath w/o gangrene Debridement and redu ction of painful mycotic nails x10 performed with 5 1/2 curved jaw double spring nail clippers and powered dremel tool w/ sanding disk and application of topical antifungal. Follow up 2-3 months for diabetic foot care. Related to Tinea unguium Follow up in 6-9 mon ths or sooner if needed. Related to Impacted cerumen, bilateral Debridement and redu ction of painful mycotic nails x10 performed with 5 1/2 curved jaw double spring nail clippers and powered dremel tool w/ sanding disk and application of topical antifungal. Follow up 2-3 months for diabetic foot care. Related to Tinea unguium Follow up - We will schedule a follow up appointment in 6-9 months for a dilated fundus exam. Impression/Plan - Im plants are clear and stable in both eyes Related to Age-related nuclear cataract, bilateral Impression/Plan - No active diabetic retinopathy present in either eye. We will monitor at regular intervals. Related to Type 2 diabetes mellitus without complications Debridement and redu ction of painful mycotic nails x10 performed with 5 1/2 curved jaw double spring nail clippers and powered dremel tool w/ sanding disk and application of topical antifungal. Follow up 2-3 months for diabetic foot care. Related to Tinea unguium Debridement and redu ction of painful mycotic nails x10 performed with 5 1/2 curved jaw double spring nail clippers and powered dremel tool w/ sanding disk and application of topical antifungal. Follow up 2-3 months for diabetic foot care. Related to Tinea unguium Debridement and redu ction of painful mycotic nails x10 performed with 5 1/2 curved jaw double spring nail clippers and powered dremel tool w/ sanding disk and application of topical antifungal. Follow up 2-3 months for diabetic foot care. Related to Tinea unguium Assessments Type Assessment Date assessment Tinea unguium assessment Type 2 diabetes w diabetic perip heral angiopath w/o gangrene assessment roasterman (current) use of oral hypoglycemic drugs Patient Care Teams Name Effective Dates (start - stop) Status Members No Information
--- NOTE | 2023-03-10 14:52 | PC.NURSE ---
TECH NOTE; NURSE NOTIFIED OF TEMPERATURE FOR ADMISSION VITAL SIGNS Julian ORTIZ, SRNA
[2023-03-10 15:03] LABS: ABG Base Excess -0.3 mmol/L (-2.4-2.3); ABG HCO3 24.4 mmhg (22.0-26.0); ABG Oxygen Saturation 98 % (90-100); ABG PCO2 39.5 mmhg (35.0-45.0); ABG PH 7.41 mmol/L (7.35-7.45); ABG TCO2 25.6 mmhg (23-27)
--- NOTE | 2023-03-10 15:26 | EXP.PULM.CON ---
History of Present Illness History of present illness: Mr. Blakely is a 62-year-old male no significant smoking history, sleep apnea with AHI 89.3 from his sleep study from September 2021 [facility] resident on BiPAP therapy presented to the hospital with worsening respiratory distress and altered mentation found to be in hypercarbic respiratory failure and pulmonary was called for further evaluation and management. [facility] Disclaimer: The information contained in this section may have been updated after the patient was seen, as this information can be updated by other users. 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 CAD (coronary artery disease) CAD (coronary atherosclerotic disease) Celiac artery stenosis Chronic heart failure with preserved ejection fraction (HFpEF) Chronic subdural hematoma Chronic subdural hematoma Coronary arteriosclerosis in [place] artery Depression Dyspnea on exertion Edema Extreme obesity GERD (gastroesophageal reflux disease) Heart failure, NYHA class 2 HHD (hypertensive heart disease) HLD (hyperlipidemia) Hypertension with goal to be determined Hypertensive heart disease without heart failure Hypothyroid Impingement syndrome of both shoulders Intolerance to BiPAP/CPAP Obesity Obesity, Class II, BMI 35-39.9, isolated (see actual BMI) Osteopenia Other hyperlipidemia Pain in left wrist Post-traumatic subdural hematoma Pulmonary emphysema Renal insufficiency Renal insufficiency Renal lesion Seizure SOB (shortness of breath) Soft tissue disorder, unspecified Subdural hematoma Subdural hematoma due to concussion Synovial plica syndrome of left knee Type 2 diabetes mellitus with pressure callus Surgical History (Updated 03/10/23 @ 14:03 by Montse Sarah RN) H/O cardiac catheterization H/O heart artery stent History of arthroscopy of shoulder History of carpal tunnel release Family History Other Cancer Diabetes Social History (Updated 03/10/23 @ 14:00 by Montse Sarah, KAMAR) Smoking Status: Current every day smoker tobacco type: cigarettes alcohol intake: never substance use type: denies use current occupational status: disabled Travel in the last 8 weeks: None caregiver/support person: Yes household members: caregiver housing: [facility] caffeine: No Review of Systems Constitutional Constitutional: Reports body ache(s), Reports fatigue and Reports lethargy Eyes Eyes: Denies eye discharge, Denies dry eyes, Denies irritation and Denies itchy eyes ENT Ears, Nose, Mouth, and Throat: Denies epistaxis, Denies facial pain, Denies lip swelling and Denies throat swelling *Cardiovascular Cardiovascular: Reports dyspnea and Reports dyspnea on exertion *Respiratory Respiratory: Reports chest congestion, Reports cough, Reports dyspnea, Reports dyspnea on exertion, Denies excessive phlegm production and Denies wheezing *Gastrointestinal Gastrointestinal: Denies abdominal pain, Denies belching and Denies cramping *Musculoskeletal Musculoskeletal: Reports back pain and Reports other (No small joint swelling or Pain) Psychiatric Psychiatric: Denies homicidal ideation and Denies suicidal ideation Endocrine Endocrine: Reports fatigue and Denies heat intolerance Hematologic/Lymphatic Hematologic/Lymphatic: Denies easy bleeding and Denies lymphadenopathy Allergic/Immunologic Allergic/Immunologic: Denies itchy eyes, Denies lip swelling, Denies throat swelling and Denies wheezing Pulmonology Exam Inpatient Vital signs and Labs for Last 24 Hours: Temp Pulse Resp BP Pulse Ox O2 Del Method O2 Flow Rate 101.2 F H 99 H 31 H 131/75 97 BiPAP 15 03/10/23 14:50 03/10/23 15:00 03/10/23 15:00 03/10/23 15:00 03/10/23 15:12 03/10/23 15:12 03/10/23 14:44 FiO2 50 03/10/23 14:45 Laboratory Results - last 24 hr 03/10/23 08:01: WBC 19.0 H, RBC 3.93 L, Hgb 13.3 L, Hct 41.7 L, MCV 106.0 H, MCH 33.8 H, MCHC 31.9, RDW 14.9, Plt Count 361, MPV 7.8, Neut % (Auto) 86.1 H, Lymph % (Auto) 8.9 L, [place] % (Auto) 3.6, Eos % (Auto) 1.1, Baso % (Auto) 0.4, Neut # (Auto) 16.4 H, Lymph # (Auto) 1.7, [place] # (Auto) 0.7, Eos # (Auto) 0.2, Baso # (Auto) 0.1, Total Counted 100, Neutrophils % (Manual) 83 H, Lymphocytes % (Manual) 12, Monocytes % (Manual) 3, Eosinophils % (Manual) 2, Platelet Estimate Normal, Macrocytosis 2+, PT 9.8 L, INR 0.90, APTT 23.7, Sodium 141, Potassium 3.7, Chloride 100, Carbon Dioxide 30, Anion Gap 13.7, BUN 23 H, Creatinine 1.20, Estimated Creat Clear 80, Estimated GFR 61, Est GFR ( Amer) 74, Glucose 108 H, Calcium 9.2, Total Bilirubin 0.4, AST 26, ALT 23, Alkaline Phosphatase 94, Troponin I < 0.01, NT-Pro-B Natriuret Pep 71.9, Total Protein 8.4 H, Albumin 4.2, Globulin 4.2 H, Albumin/Globulin Ratio 1.0 L, Lipase 107 03/10/23 08:06: VBG pH 7.23 L, VBG pCO2 67.5 H, VBG pO2 29.3, VBG HCO3 27.4, VBG Total CO2 29.5 H, VBG O2 Saturation 44.8 L, VBG Base Excess -0.2 03/10/23 08:18: SARS-CoV-2 (PCR) Not detected, Influenza A Untype (PCR) Not detected, Influenza Type B (PCR) Not detected 03/10/23 09:00: Lactate 3.8 H 03/10/23 09:50: Urine Color Yellow, Urine Appearance Clear, Urine pH 6.0, Ur Specific [place] 1.025, Urine Protein Negative, Urine Glucose (UA) Negative, Urine Ketones Negative, Urine Blood Negative, Urine Nitrate Negative, Urine Bilirubin Negative, Urine Urobilinogen 0.2, Ur Leukocyte Esterase Negative, Urine RBC None, Urine WBC 3-5, Ur Squamous Epith Cells 3-5, Urine Bacteria Trace 03/10/23 09:58: VBG pH 7.27 L, VBG pCO2 48.2, VBG pO2 32.7, VBG HCO3 21.8 L, VBG Total CO2 23.3, VBG O2 Saturation 55.8, VBG Base Excess -5.1 L 03/10/23 12:01: Lactate 1.7, Troponin I < 0.01 03/10/23 15:01: ABG pH 7.41, ABG pCO2 39.5, ABG pO2 98.0, ABG HCO3 24.4, ABG Total CO2 25.6, ABG O2 Saturation 98, ABG Base Excess -0.3 I & O for Labs for Last 24 Hours: Intake & Output 03/07/23 03/08/23 03/09/23 03/10/23 23:59 23:59 23:59 23:59 Intake Total 1700 / 1700 Output Total 875 / 875 Balance 825 / 825 Weight 194 lb 9 oz Constitutional: Present moderate distress Head: Present normocephalic and atraumatic ENT: Present normal exam, normal oropharynx and mucous membranes moist Neck: Present normal inspection and full ROM Respiratory: Present respiratory distress and able to speak in complete sentences; Absent wheezes or crackles Cardiac: Present S1/S2, Tachycardia and radial pulses present GI: Present soft and distention; Absent tenderness or guarding Skin: Present intact; Absent cyanosis or jaundice Neuro: Present awake; Absent alert or oriented x 3 Extremities: Present normal inspection; Absent clubbing or cyanosis Psychiatric: Present cooperative; Absent normal affect Meds Home Medications and Allergies Home Medications Medication Instructions Recorded Confirmed Type atorvastatin 40 mg tablet (Lipitor) 40 mg PO HS 03/24/17 03/10/23 History isosorbide mononitrate 30 mg 30 mg PO DAILY 04/11/17 03/10/23 History tablet,extended release 24 hr magnesium oxide 400 mg PO HS 09/30/17 03/10/23 History acetaminophen 500 mg tablet 500 mg PO Q4H PRN Fever Or Pain 11/10/17 03/10/23 History omeprazole 20 mg capsule,delayed 20 mg PO Q48H 11/10/17 03/10/23 History release levothyroxine 50 mcg tablet 50 mcg PO DAILY 11/11/17 03/10/23 History losartan 25 mg tablet (Cozaar) 12.5 mg PO DAILY 09/29/18 03/10/23 History aspirin 81 mg chewable tablet 81 mg PO DAILY 01/25/19 03/10/23 History loperamide 2 mg capsule 2 mg PO Q4H PRN Diarrhea 01/25/19 03/10/23 History trazodone 100 mg tablet 100 mg PO HS 02/24/20 03/10/23 History tamsulosin 0.4 mg capsule (Flomax) 0.4 mg PO DAILY urinary retention 04/24/20 03/10/23 History metformin 500 mg tablet 500 mg PO BIDWMEAL 10/30/20 03/10/23 History docusate calcium 240 mg capsule 240 mg PO DAILY PRN Constipation 02/09/21 03/10/23 History lactulose 10 gram/15 mL oral 30 ml PO DAILY PRN Constipation 02/09/21 03/10/23 History solution furosemide 40 mg tablet (Lasix) 40 mg PO DAILY #30 tabs 03/20/21 03/10/23 Rx duloxetine 60 mg capsule,delayed 60 mg PO DAILY 10/17/21 03/10/23 History release linagliptin 5 mg tablet (Tradjenta) 5 mg PO DAILY 10/17/21 03/10/23 History tiotropium bromide 1.25 2 puff inhalation DAILY 10/17/21 03/10/23 History mcg/actuation mist for inhalation (Spiriva Respimat) spironolactone 50 mg tablet 50 mg PO DAILY #90 tabs 11/29/21 03/10/23 Rx aluminum hydrox-magnesium carb 95 30 ml PO Q4H PRN GI upset 11/21/22 03/10/23 History mg-358 mg/15 mL oral suspension (Acid Gone Antacid) bisacodyl 5 mg tablet 10 mg PO DAILY PRN Constipation 11/21/22 03/10/23 History duloxetine 30 mg capsule,delayed 30 mg PO DAILY 11/21/22 03/10/23 History release multivitamin 1 tab PO DAILY 11/21/22 03/10/23 History polyethylene glycol 3350 17 gram 17 g PO DAILY 11/21/22 03/10/23 History oral powder packet cariprazine 3 mg capsule (Vraylar) 3 mg PO DAILY 01/08/23 03/10/23 History cyanocobalamin (vitamin B-12) 250 750 mcg PO DAILY 01/08/23 03/10/23 History mcg tablet (Vitamin B-12) levetiracetam 500 mg tablet 500 mg PO BID 01/08/23 03/10/23 History (Keppra) sennosides 8.6 mg-docusate sodium 2 tab-cap PO BID 01/08/23 03/10/23 History 50 mg tablet (Senexon-S) bisacodyl 10 mg rectal suppository 10 mg AR DAILY PRN Constipation 01/28/23 03/10/23 History insulin glargine 100 unit/mL (3 15 unit SQ HS 12/13/23 01/22/24 History mL) subcutaneous pen (Lantus Solostar U-100 Insulin) insulin lispro protamine-lispro 17 unit SQ BID 01/29/23 03/10/23 History 100 unit/mL (75-25) subcutaneous pen (Humalog Mix 75-25 KwikPen) gabapentin 400 mg capsule 400 mg PO TID 30 days #90 caps 02/13/23 03/10/23 Rx albuterol sulfate 90 mcg/actuation 2 inh inhalation QID PRN Shortness 03/10/23 03/10/23 History aerosol inhaler Of Breath Or Wheezing folic acid 800 mcg tablet 800 mcg PO DAILY 03/10/23 03/10/23 History guaifenesin 100 mg/5 mL oral 200 mg PO Q4H PRN Cough 03/10/23 03/10/23 History liquid (Diabetic Tussin EX) tramadol 100 mg tablet 100 mg PO QID 03/10/23 03/10/23 History New Prescriptions to Start Prescriptions: Allergies Allergy/AdvReac Type Severity Reaction Status Date / Time morphine [MORPHINE] Allergy Mild HURTS Verified 03/10/23 08:10 STOMACH nitroglycerin AdvReac Mild Nausea Verified 03/10/23 08:10 Results Laboratory Findings 03/10/23 08:01 03/10/23 08:01 ABG ABG pH 7.41 mmol/L (7.35-7.45) 03/10/23 15:01 ABG pCO2 39.5 mmhg (35.0-45.0) 03/10/23 15:01 ABG pO2 98.0 mmhg (80-100) 03/10/23 15:01 ABG O2 Saturation 98 % (90-100) 03/10/23 15:01 PT/INR, D-dimer PT 9.8 seconds (10.1-12.5) L 03/10/23 08:01 INR 0.90 (0.9-1.1) 03/10/23 08:01 Abnormal lab findings: Abnormal Labs 03/10/23 03/10/23 03/10/23 08:01 08:06 09:00 WBC 19.0 H RBC 3.93 L Hgb 13.3 L Hct 41.7 L MCV 106.0 H MCH 33.8 H Neut % (Auto) 86.1 H Lymph % (Auto) 8.9 L Neut # (Auto) 16.4 H Neutrophils % (Manual) 83 H PT 9.8 L VBG pH 7.23 L VBG pCO2 67.5 H VBG HCO3 VBG Total CO2 29.5 H VBG O2 Saturation 44.8 L VBG Base Excess BUN 23 H Glucose 108 H Lactate 3.8 H Total Protein 8.4 H Globulin 4.2 H Albumin/Globulin Ratio 1.0 L 03/10/23 09:58 WBC RBC Hgb Hct MCV MCH Neut % (Auto) Lymph % (Auto) Neut # (Auto) Neutrophils % (Manual) PT VBG pH 7.27 L VBG pCO2 VBG HCO3 21.8 L VBG Total CO2 VBG O2 Saturation VBG Base Excess -5.1 L BUN Glucose Lactate Total Protein Globulin Albumin/Globulin Ratio Assessment and Plan *Assessment and plan (1) Acute respiratory failure with hypoxia and hypercarbia: Status: Acute Category: Medical Code(s): J96.01 - Acute respiratory failure with hypoxia; J96.02 - Acute respiratory failure with hypercapnia (2) Pneumonia: Status: Resolved Qualifiers: Laterality: unspecified laterality Lung location: unspecified part of lung Pneumonia type: due to unspecified organism Qualified Code(s): J18.9 - Pneumonia, unspecified organism Category: Medical Code(s): J18.9 - Pneumonia, unspecified organism Plan Mr. Blakely is a 62-year-old male no significant smoking history, sleep apnea with AHI 89.3 from his sleep study from September 2021 [facility] resident on BiPAP therapy presented to the hospital with worsening respiratory distress and altered mentation found to be in hypercarbic respiratory failure and pulmonary was called for further evaluation and management. Last followed with sleep clinic May 2022, noncompliant with BiPAP therapy at that point of time based on the notes. CTA upon admission no evidence of pulmonary embolism, noted to have right lower lobe airspace disease. He had a most recent admission in December 2022 status post questionable aspiration event, cardiac arrest CPR with food expelled from the mouth. Febrile on presentation. Neutrophilic leukocytosis. VBG on this admission, hypercarbic respiratory failure status post initiation of BiPAP in the ER with follow-up VBG showed improved hypercarbic respiratory failure. Plan: Continue vancomycin and cefepime azithromycin pending sputum culture results. Follow with ABG and will wean to nasal cannula as tolerated DuoNebs every 6 hours on as-needed basis Continue BiPAP therapy at night. Compliance report from [facility]. Speech and swallow evaluation prior to discharge # Thank you for involving pulmonary in this patient care. Will continue to follow.
--- NOTE | 2023-03-10 15:41 | HMH.PHAINT1 ---
Pharmacy Intervention Comments: Home meds verified with external pharmacy list and with MAR sent from facility.
[2023-03-10 17:07] LABS: POC Glucose,Bedside 143 (70-110)
--- NOTE | 2023-03-10 17:14 | PC.NURSE ---
spoke with MD Abbi MD stated that if pt passed bedside swallow to order diet that pt had at halfway, pt did pass so will order diet now and call and get late tray for pt, also stated to keep speech eval scheduled for am
[2023-03-10] MEDS: TRAMADOL 50MG TABLET 50 MG PO ×2 (17:59→20:35)
[2023-03-10] MEDS: IPRATROPIUM/ALBUTEROL 3 ML NEB IH ×2 (18:45→23:19)
[2023-03-10] MEDS: ATORVASTATIN 40MG TABLET 40 MG PO (20:34)
[2023-03-10] MEDS: levETIRAcetam 500 MG TABLET PO (20:34)
[2023-03-10] MEDS: GABAPENTIN 400MG CAPSULE 400 MG PO (20:34)
[2023-03-10] MEDS: SENNOSIDES 8.6MG/DOCUSATE 50MG TABLET 2 TAB PO (20:35)
[2023-03-10] MEDS: humaLOG 100 UNITS/ML 3ML VIAL (SSI) SQ (20:43)
[2023-03-10 20:53] LABS: POC Glucose,Bedside 263 (70-110)
--- NOTE | 2023-03-10 22:25 | PC.NURSE ---
Per Andre Root APRN pt can now be med surg
[2023-03-11] VITALS (12 sets, daily range): BP systolic 102–159; BP diastolic 58–95; PULSE 70–100; RESP 18–24; TEMP 36.6–36.9; O2SAT 94–98; BMI 32.3
[2023-03-11] MEDS: VANCOMYCIN/WATER FOR INJ (PEG) 1.75 GM/350 ML PIGGYBACK IV ×2 (04:06→22:54)
--- NOTE | 2023-03-11 04:16 | PC.NURSE ---
Pt alert to self only. Woke up a couple of times in the middle of the night restless, pulling at things and screaming I don't live here! RN and SRNA reassured and reoriented pt multiple times. His vitals have been stable. Tolerated bipap overnight. Stephens in place for urinary retention. Complained of pain in his legs and feet, scheduled Tramadol and Gabapentin given.
[2023-03-11] MEDS: humaLOG 100 UNITS/ML 3ML VIAL (SSI) SQ ×4 (05:13→20:47)
[2023-03-11] MEDS: IPRATROPIUM/ALBUTEROL 3 ML NEB IH (05:45)
[2023-03-11 05:55] LABS: POC Glucose,Bedside 171 (70-110)
[2023-03-11] MEDS: LEVOTHYROXINE 50MCG (0.05MG) TAB 50 MCG PO (06:01)
[2023-03-11 06:46] LABS: Basophils # 0.1 K/mm3 (0-0.2); Basophils % 0.2 % (0.1-2.0); Eosinophils % 0.1 % (0.1-12.0); Hematocrit 31.8 % (42.0-52.0); Lymphocytes # 1.8 K/mm3 (0.7-4.5); Lymphocytes % 7.2 % (10-50); Mean Corpuscular HGB Conc 32.6 g/dL (31.8-35.4); Mean Corpuscular Volume 104.3 fl (80-94); Mean Platelet Volume 7.9 fl (7.4-10.4); Monocytes # 1.1 K/mm3 (0.1-1.0); Monocytes % 4.3 % (1.7-9.3); Neutrophils # 21.7 K/mm3 (1.8-7.8); Neutrophils % 88.2 % (37.0-80.0); Platelet Count 288 K/mm3 (142-424); Red Blood Count 3.05 M/mm3 (4.60-6.20); Red Cell Distribution Width 14.9 % (11.5-17.5); White Blood Count 24.6 K/mm3 (4.8-10.8)
[2023-03-11 06:56] LABS: MANUAL DIFFERENTIAL MANUAL DIFFERENTIAL (MANUAL DIFF)
[2023-03-11 06:57] LABS: Hemoglobin 10.4 g/dL (14.1-18.0)
[2023-03-11 06:58] LABS: Alanine Aminotransferase 21 U/L (12-78); Albumin Level 3.2 g/dl (3.5-5.0); Albumin/Globulin Ratio 0.9 (1.1-1.8); Alkaline Phosphatase 71 U/L (38-126); Aspartate Amino Transferase 24 U/L (17-59); Bilirubin,Total 0.2 mg/dl (0.2-1.3); Blood Urea Nitrogen 22 mg/dl (9-20); Carbon Dioxide 28 mmol/L (22.0-30.0); Chloride 106 mmol/L (98-107); Creatinine Clearance Estimated 93 mL/min (50-200); Estimated Glomerular Filt Rate 75 ml/min (>60); GFR (African American) 91 ML/MIN (>60); Globulin 3.5 g/dL (1.3-3.2); Glucose 163 mg/dl (74-100); Sodium 139 mmol/L (136-145); Total Protein,Serum 6.7 g/dl (6.3-8.2)
[2023-03-11 07:58] LABS: Lymphocytes % 9 % (10-50); Macrocytosis 1+; Monocytes % 2 % (2-9); Neutrophils % 89 % (42-76); Platelet Estimate Normal; Total Cells Counted 100
[2023-03-11] MEDS: SENNOSIDES 8.6MG/DOCUSATE 50MG TABLET 2 TAB PO ×2 (09:01→20:48)
[2023-03-11] MEDS: ASPIRIN 81MG CHEWABLE TABLET 81 MG PO (09:01)
[2023-03-11] MEDS: TAMSULOSIN 0.4MG CAPSULE 0.400000000000000022 MG PO (09:01)
[2023-03-11] MEDS: ISOSORBIDE MONO 30MG TAB.ER.24H 30 MG PO (09:01)
[2023-03-11] MEDS: DULOXETINE 30MG CAPSULE.DR 90 MG PO (09:01)
[2023-03-11] MEDS: GABAPENTIN 400MG CAPSULE 400 MG PO ×3 (09:01→20:49)
[2023-03-11] MEDS: levETIRAcetam 500 MG TABLET PO ×2 (09:01→20:49)
[2023-03-11] MEDS: CEFEPIME HCL 2 GM in 0.9 % SODIUM CHLORIDE 100 ML IV ×2 (09:02→22:15)
[2023-03-11] MEDS: ENOXAPARIN 40MG/0.4ML SYRINGE 40 MG SQ (09:02)
[2023-03-11] MEDS: TRAMADOL 50MG TABLET 50 MG PO ×4 (09:07→20:48)
[2023-03-11] MEDS: AZITHROMYCIN 500 MG in 0.9 % SODIUM CHLORIDE 250 ML 250 MG IV (09:50)
--- NOTE | 2023-03-11 10:00 | EXP.PULM.PN ---
Subjective *Date: 03/11/23 *Time: 12:46 Interval history: No acute respiratory vents overnight. Patient more awake and engaging in conversation this morning. Pulmonology Exam Inpatient Vital signs and Labs for Last 24 Hours: Temp Pulse Resp BP Pulse Ox O2 Del Method O2 Flow Rate 98.3 F 88 24 150/95 H 98 Nasal Cannula 2 03/11/23 08:00 03/11/23 08:00 03/11/23 08:00 03/11/23 08:00 03/11/23 08:00 03/11/23 08:39 03/11/23 08:39 FiO2 35 03/11/23 02:00 Laboratory Results - last 24 hr 03/10/23 09:50: Urine Color Yellow, Urine Appearance Clear, Urine pH 6.0, Ur Specific [place] 1.025, Urine Protein Negative, Urine Glucose (UA) Negative, Urine Ketones Negative, Urine Blood Negative, Urine Nitrate Negative, Urine Bilirubin Negative, Urine Urobilinogen 0.2, Ur Leukocyte Esterase Negative, Urine RBC None, Urine WBC 3-5, Ur Squamous Epith Cells 3-5, Urine Bacteria Trace 03/10/23 09:58: VBG pH 7.27 L, VBG pCO2 48.2, VBG pO2 32.7, VBG HCO3 21.8 L, VBG Total CO2 23.3, VBG O2 Saturation 55.8, VBG Base Excess -5.1 L 03/10/23 12:01: Lactate 1.7, Troponin I < 0.01 03/10/23 14:45: Troponin I 03/10/23 15:01: ABG pH 7.41, ABG pCO2 39.5, ABG pO2 98.0, ABG HCO3 24.4, ABG Total CO2 25.6, ABG O2 Saturation 98, ABG Base Excess -0.3 03/10/23 16:44: POC Glucose 143 H 03/10/23 20:42: POC Glucose 263 H 03/11/23 05:12: POC Glucose 171 H 03/11/23 05:52: WBC 24.6 H* D, RBC 3.05 L, Hgb 10.4 L D, Hct 31.8 L, MCV 104.3 H, MCH 34.0 H, MCHC 32.6, RDW 14.9, Plt Count 288, MPV 7.9, Neut % (Auto) 88.2 H, Lymph % (Auto) 7.2 L, [place] % (Auto) 4.3, Eos % (Auto) 0.1, Baso % (Auto) 0.2, Neut # (Auto) 21.7 H, Lymph # (Auto) 1.8, [place] # (Auto) 1.1 H, Eos # (Auto) 0.0, Baso # (Auto) 0.1, Total Counted 100, Neutrophils % (Manual) 89 H, Lymphocytes % (Manual) 9 L, Monocytes % (Manual) 2, Platelet Estimate Normal, RBC Morphology Not Reportable, Macrocytosis 1+, Sodium 139, Potassium 4.0, Chloride 106, Carbon Dioxide 28, Anion Gap 9.0, BUN 22 H, Creatinine 1.00, Estimated Creat Clear 93, Estimated GFR 75, Est GFR ( Amer) 91 D, Glucose 163 H D, Calcium 8.0 L, Magnesium 2.0, Total Bilirubin 0.2, AST 24, ALT 21, Alkaline Phosphatase 71, Total Protein 6.7, Albumin 3.2 L D, Globulin 3.5 H, Albumin/Globulin Ratio 0.9 L I & O for Labs for Last 24 Hours: Intake & Output 03/08/23 03/09/23 03/10/23 03/11/23 23:59 23:59 23:59 23:59 Intake Total 1920 / 1920 700 / 700 Output Total 1175 / 1175 1100 / 1100 Balance 745 / 745 -400 / -400 Weight 194 lb 9 oz 194 lb 3.636 oz Constitutional: Present moderate distress Head: Present normocephalic and atraumatic ENT: Present normal exam, normal oropharynx and mucous membranes moist Neck: Present normal inspection and full ROM Respiratory: Present respiratory distress and able to speak in complete sentences; Absent wheezes or crackles Cardiac: Present S1/S2, Tachycardia and radial pulses present GI: Present soft and distention; Absent tenderness or guarding Skin: Present intact; Absent cyanosis or jaundice Neuro: Present alert and awake; Absent oriented x 3 Extremities: Present normal inspection; Absent clubbing or cyanosis Psychiatric: Present cooperative; Absent normal affect Assessment and Plan *Assessment and plan (1) Acute respiratory failure with hypoxia and hypercarbia: Status: Acute Category: Medical Code(s): J96.01 - Acute respiratory failure with hypoxia; J96.02 - Acute respiratory failure with hypercapnia (2) Pneumonia: Status: Resolved Qualifiers: Laterality: unspecified laterality Lung location: unspecified part of lung Pneumonia type: due to unspecified organism Qualified Code(s): J18.9 - Pneumonia, unspecified organism Category: Medical Code(s): J18.9 - Pneumonia, unspecified organism Plan Mr. Blakely is a 62-year-old male no significant smoking history, sleep apnea with AHI 89.3 from his sleep study from September 2021 [facility] resident on BiPAP therapy presented to the hospital with worsening respiratory distress and altered mentation found to be in hypercarbic respiratory failure and pulmonary was called for further evaluation and management. Last followed with sleep clinic May 2022, noncompliant with BiPAP therapy at that point of time based on the notes. CTA upon admission no evidence of pulmonary embolism, noted to have right lower lobe airspace disease. He had a most recent admission in December 2022 status post questionable aspiration event, cardiac arrest CPR with food expelled from the mouth. Febrile on presentation. Neutrophilic leukocytosis. VBG on this admission, hypercarbic respiratory failure status post initiation of BiPAP in the ER with follow-up VBG showed improved hypercarbic respiratory failure. Interval update: Follow-up ABG post admission did not show any evidence of hypoxic/hypercarbic respiratory failure. Wean to nasal cannula. Continue to receive vancomycin, cefipime and azithromycin pending culture results. Worsening leukocytosis, 24.6, neutrophilic predominant. Admits improving ox requirements. More awake and engaging in conversation. Weaned to room air this morning. Plan: -Continue oxygen supplementation as needed to maintain O2 saturation goal of 90 to 95%. Continue vancomycin and cefepime azithromycin pending sputum culture results. DuoNebs every 6 hours on as-needed basis Continue BiPAP therapy at night. Compliance report from [facility]. Speech and swallow evaluation prior to discharge # Thank you for involving pulmonary in this patient care. Will continue to follow.
--- NOTE | 2023-03-11 10:03 | PC.NURSE ---
RT called about pt's sob and 02 of 80-84 on vapotherm.
--- NOTE | 2023-03-11 10:19 | SW/DCPLANNER ---
Addendum entered by Stacy Hui 03/12/23 11:37: Per Dr Go patient will need 4 more days of IV antibiotics: Alena liriano/ Jean Paul Sloan confirmed that patient can return w/ IV vs IM or midline. Addendum entered by Stacy Hui 03/12/23 10:11: I have updated Alena liriano/ Jean Paul Sloan that patient will return today. Original Note: This patient currently resides at [facility] level of care. I will continue to follow up w/ Alena at [facility] until medically stable for discharge. Update patient information will be faxed to [facility]. Patient could potentially be ready for discharge tomorrow pending no setbacks.
[2023-03-11 10:34] LABS: POC Glucose,Bedside 262 (70-110)
--- NOTE | 2023-03-11 11:52 | P.PN_ITS ---
Subjective *Date: 03/11/23 *Time: 11:52 Interval history: Patient is on mentation this morning. On 1 L nasal cannula oxygen on rounds. No fevers overnight. Bump in white cell count today. Tolerating p.o. intake, speech evaluating. Hemodynamically stable. Medical Exam Vital signs and Labs for Last 24 Hours: Vital Signs Temp Pulse Pulse Resp BP BP Pulse Ox 03/11/23 10:08 03/11/23 08:00 98 03/11/23 08:00 98.3 F 88 24 150/95 H 98 03/11/23 08:39 03/11/23 06:39 03/11/23 05:45 91 H 03/11/23 05:45 93 H 03/11/23 05:45 97 03/11/23 05:43 96 H 22 94 L 03/11/23 04:50 90 03/11/23 04:45 03/11/23 04:00 98.4 F 85 18 159/72 H 98 03/11/23 02:41 03/11/23 02:00 03/11/23 00:00 90 03/11/23 00:23 03/10/23 23:54 86 17 118/71 94 L 03/10/23 23:00 03/10/23 23:19 93 H 03/10/23 23:19 94 H 03/10/23 21:55 96 H 25 H 125/64 03/10/23 21:32 03/10/23 20:00 100 H 03/10/23 20:49 03/10/23 20:00 98.9 F 100 H 25 H 124/68 96 03/10/23 19:54 24 94 L 03/10/23 18:45 98 H 03/10/23 18:45 98 H 03/10/23 18:45 98 03/10/23 18:41 03/10/23 18:00 97 H 20 152/80 H 92 L 03/10/23 16:00 100 H 03/10/23 16:00 98 H 32 H 117/67 95 03/10/23 17:00 03/10/23 16:00 98.2 F 03/10/23 14:45 03/10/23 15:00 99 H 31 H 131/75 97 03/10/23 15:12 97 03/10/23 15:00 03/10/23 14:44 101 H 33 H 125/72 100 03/10/23 14:50 101.2 F H 102 H 26 H 125/72 100 03/10/23 14:30 102.4 F H 104 H 24 141/72 H 03/10/23 14:00 103 H 141/72 H 96 03/10/23 13:30 105 H 139/74 97 03/10/23 13:00 107 H 130/73 96 03/10/23 13:00 102.4 F H 107 H 26 H 130/73 96 03/10/23 12:30 112 H 141/76 H 95 03/10/23 12:00 117 H 141/69 H 97 O2 Del Method O2 Flow Rate FiO2 03/11/23 10:08 Nasal Cannula 1 03/11/23 08:00 Nasal Cannula 1 03/11/23 08:00 Nasal Cannula 2 03/11/23 08:39 Nasal Cannula 2 03/11/23 06:39 Nasal Cannula 2 03/11/23 05:45 03/11/23 05:45 03/11/23 05:45 Nasal Cannula 2 03/11/23 05:43 Nasal Cannula 2 03/11/23 04:50 03/11/23 04:45 BiPAP 03/11/23 04:00 BiPAP 03/11/23 02:41 BiPAP 03/11/23 02:00 35 03/11/23 00:00 03/11/23 00:23 BiPAP 03/10/23 23:54 BiPAP 03/10/23 23:00 BiPAP 03/10/23 23:19 03/10/23 23:19 03/10/23 21:55 BiPAP 03/10/23 21:32 35 03/10/23 20:00 03/10/23 20:49 Nasal Cannula 2 03/10/23 20:00 Nasal Cannula 2 03/10/23 19:54 Nasal Cannula 2 03/10/23 18:45 03/10/23 18:45 03/10/23 18:45 Nasal Cannula 2 03/10/23 18:41 Nasal Cannula 3 03/10/23 18:00 Nasal Cannula 3 03/10/23 16:00 03/10/23 16:00 Nasal Cannula 3 03/10/23 17:00 Nasal Cannula 3 03/10/23 16:00 03/10/23 14:45 50 03/10/23 15:00 BiPAP 03/10/23 15:12 BiPAP 03/10/23 15:00 BiPAP 03/10/23 14:44 Non-Rebreather 15 03/10/23 14:50 BiPAP 03/10/23 14:30 BiPAP 03/10/23 14:00 BiPAP 03/10/23 13:30 BiPAP 03/10/23 13:00 BiPAP 03/10/23 13:00 BiPAP 03/10/23 12:30 BiPAP 03/10/23 12:00 BiPAP Intake and Output 03/10/23 03/11/23 03/11/23 23:59 07:59 15:59 Intake Total 220 / 1920 350 / 1190 840 / 1190 Output Total 300 / 1175 500 / 1100 600 / 1100 Balance -80 / 745 -150 / 90 240 / 90 Intake: Intake, Oral Amount 120 / 120 490 / 490 Intake, Total IV Amount 100 / 1800 350 / 700 350 / 700 Azithromycin 500 mg In 0.9 % 250 / 250 Sodium Chloride 250 ml @ 250 mls/hr IV ONCE ONE Rx#:[id number] Cefepime HCl 2 gm In 0.9 % 100 / 200 100 / 100 Sodium Chloride 100 ml @ 200 mls/hr IV ONCE ONE Rx#:[id number] Vancomycin/Water For Inj (Peg) 350 / 350 1.75 gm In 350 ml @ 175 mls/hr IV Q[facility] Rx#:[id number] Output: Output, Urine Amount 300 / 300 600 / 600 Output, Urine Amount (Catheter) 500 / 500 Stephens 500 / 500 Other: Number of Unmeasured Voids 0 Weight 88.1 kg Patient Weight 03/11/23 23:59 Weight 88.1 kg Laboratory Results - last 24 hr 03/10/23 12:01: Lactate 1.7, Troponin I < 0.01 03/10/23 14:45: Troponin I 03/10/23 15:01: ABG pH 7.41, ABG pCO2 39.5, ABG pO2 98.0, ABG HCO3 24.4, ABG Total CO2 25.6, ABG O2 Saturation 98, ABG Base Excess -0.3 03/10/23 16:44: POC Glucose 143 H 03/10/23 20:42: POC Glucose 263 H 03/11/23 05:12: POC Glucose 171 H 03/11/23 05:52: WBC 24.6 H* D, RBC 3.05 L, Hgb 10.4 L D, Hct 31.8 L, MCV 104.3 H , MCH 34.0 H, MCHC 32.6, RDW 14.9, Plt Count 288, MPV 7.9, Neut % (Auto) 88.2 H, Lymph % (Auto) 7.2 L, Mcdonough % (Auto) 4.3, Eos % (Auto) 0.1, Baso % (Auto) 0.2, Neut # (Auto) 21.7 H, Lymph # (Auto) 1.8, Mcdonough # (Auto) 1.1 H, Eos # (Auto) 0.0, Baso # (Auto) 0.1, Total Counted 100, Neutrophils % (Manual) 89 H, Lymphocytes % (Manual) 9 L, Monocytes % (Manual) 2, Platelet Estimate Normal, RBC Morphology Not Reportable, Macrocytosis 1+, Sodium 139, Potassium 4.0, Chloride 106, Carbon Dioxide 28, Anion Gap 9.0, BUN 22 H, Creatinine 1.00, Estimated Creat Clear 93, Estimated GFR 75, Est GFR ( Amer) 91 D, Glucose 163 H D, Calcium 8.0 L, Magnesium 2.0, Total Bilirubin 0.2, AST 24, ALT 21, Alkaline Phosphatase 71, Total Protein 6.7, Albumin 3.2 L D, Globulin 3.5 H, Albumin/Globulin Ratio 0.9 L 03/11/23 10:28: POC Glucose 262 H I & O for Labs for Last 24 Hours: Intake & Output 03/08/23 03/09/23 03/10/23 03/11/23 23:59 23:59 23:59 23:59 Intake Total 1920 / 1920 1190 / 1190 Output Total 1175 / 1175 1100 / 1100 Balance 745 / 745 90 / 90 Weight 88.252 kg 88.1 kg Constitutional: Present no acute distress, obese, chronically ill appearing and cooperative Head: Present atraumatic and normocephalic ENT: Present normal exam Respiratory: Present crackles (Right side) and normal respiratory effort; Absent rhonchi or wheezes Cardiac: Present Reg Rate and Rhythm GI: Present soft and normal bowel sounds; Absent distention or tenderness Comment:: Thin extremities, sarcopenia of legs. Skin: Present intact; Absent erythema Neuro: Present alert and awake Comment:: Movement in upper extremities, not in the lower Assessment and Plan *Assessment and plan (1) Right lower lobe pneumonia: Status: Acute Category: Medical Code(s): J18.9 - Pneumonia, unspecified organism (2) Sepsis: Status: Acute Category: Medical Code(s): A41.9 - Sepsis, unspecified organism (3) Hypothyroidism, unspecified: Status: Chronic Qualifiers: Hypothyroidism type: acquired Qualified Code(s): E03.9 - Hypothyroidism, unspecified Category: Medical Code(s): E03.9 - Hypothyroidism, unspecified (4) HTN (hypertension): Status: Chronic Qualifiers: Hypertension type: primary hypertension Qualified Code(s): I10 - Essential (primary) hypertension Category: Medical Code(s): I10 - Essential (primary) hypertension (5) Schizoaffective disorder: Status: Acute Category: Medical Code(s): F25.9 - Schizoaffective disorder, unspecified (6) Type 2 diabetes mellitus with pressure callus: Status: Acute Category: Medical Code(s): E11.628 - Type 2 diabetes mellitus with other skin complications; L84 - Corns and callosities (7) RAJAN treated with BiPAP: Status: Chronic Category: Medical Code(s): G47.33 - Obstructive sleep apnea (adult) (pediatric) Plan Mr. Blakely is a 62-year-old male with multiple comorbidities who presented to the ER for altered mental status. Found to be septic with pneumonia and hypercapnic respiratory failure. Discussed case with ER, request admission for IV antibiotics, monitoring of cultures, and further treatment for sepsis and respiratory failure. Medicine agreed to admit. Pulmonology consulted to assist with hypercapnic failure and evaluation of RAJAN and emphysema along with treatment of pneumonia. Continues to require inpatient management. Showing some clinical improvement. Anticipate discharge in the coming days. Problems addressed as follows: Sepsis with hypercapnic respiratory failure secondary to pneumonia - fever of 102.4, leukocytosis of 19, worsening respiratory failure, pneumonia on chest imaging. Tachycardia 104. - Continue vancomycin and cefepime along with azithromycin pending sputum cult ures. Pulmonology consulted, discussed case today. Continue BiPAP at night. Agrees with speech and swallow eval. Continue DuoNebs every 6 hours as needed - Improved oxygen requirement overnight. On 1 L nasal cannula this morning on rounds. Goal sat greater 90%, wean as tolerated. -White cell count increased to 24.6 from 19. Repeat CBC, CMP, magnesium ordered for the morning. Schizoaffective disorder: Continue Cymbalta 90 mg daily, gabapentin 400 mg tid, Keppra 500mg twice daily, Vraylar 3 mg daily Hypertension: Resume losartan with improvement in kidney function and resolution of sepsis symptoms Hypothyroid: TSH 1.3 in December, continue levothyroxine 50 mcg daily Diabetes: A1c 5.7 the end of December (2 months ago) -Sliding scale insulin with fingersticks ACHS -Holding metformin and insulin glargine in the setting of elevated lactate adn normoglycemia Obesity and debility complicate all aspects of his care Holding trazodone nightly for sleep due to sedation Continue tamsulosin 0.4 mg daily for BPH Continue bowel regimen from [facility] Full code Lovenox 40 mg daily Modified diet
[2023-03-11 15:59] LABS: POC Glucose,Bedside 163 (70-110)
[2023-03-11 20:16] LABS: POC Glucose,Bedside 188 (70-110)
[2023-03-11] MEDS: ATORVASTATIN 40MG TABLET 40 MG PO (20:49)
[2023-03-11] MEDS: PANTOPRAZOLE 40MG TABLET 40 MG PO (20:49)
[2023-03-12] VITALS: PULSE 80; O2SAT 95
--- NOTE | 2023-03-12 01:18 | PC.NURSE ---
Pt has not voided since indwelling cath was discontinued @ 1356 03/11/2023, bladder scanner showed 630 mL, in and out cath per protocol at 0115, was able to get 600mL out at this time, urine is dark and contains sediment with a strong odor. Pt tolerated cath well. will monitor output and plan to scan and in and out cath again @0715 if pt does not void.
[2023-03-12 04:00] VITALS: BP 125/75; PULSE 77; PULSE 78; RESP 18; TEMP 36.6; O2SAT 96; BMI 32.7
[2023-03-12 05:24] LABS: POC Glucose,Bedside 129 (70-110)
[2023-03-12] MEDS: SITAGLIPTIN 50MG TABLET 100 MG PO (06:12)
[2023-03-12] MEDS: LEVOTHYROXINE 50MCG (0.05MG) TAB 50 MCG PO (06:13)
[2023-03-12 06:52] LABS: Basophils % 0.3 % (0.1-2.0); Eosinophils # 0.3 K/mm3 (0.0-0.4); Eosinophils % 2.5 % (0.1-12.0); Hemoglobin 9.8 g/dL (14.1-18.0); Lymphocytes # 1.4 K/mm3 (0.7-4.5); Lymphocytes % 11.6 % (10-50); MANUAL DIFFERENTIAL MANUAL DIFFERENTIAL (MANUAL DIFF); Mean Corpuscular HGB Conc 31.7 g/dL (31.8-35.4); Mean Corpuscular Hemoglobin 33.7 pg (27.0-31.2); Mean Corpuscular Volume 106.2 fl (80-94); Mean Platelet Volume 8.9 fl (7.4-10.4); Monocytes # 0.7 K/mm3 (0.1-1.0); Monocytes % 5.7 % (1.7-9.3); Neutrophils # 9.7 K/mm3 (1.8-7.8); Neutrophils % 79.9 % (37.0-80.0); Platelet Count 255 K/mm3 (142-424); Red Blood Count 2.92 M/mm3 (4.60-6.20); Red Cell Distribution Width 14.9 % (11.5-17.5); White Blood Count 12.2 K/mm3 (4.8-10.8)
[2023-03-12 07:07] LABS: Anion Gap 9.1 mEq/L (5-15); Blood Urea Nitrogen 16 mg/dl (9-20); Calcium 7.6 mg/dl (8.4-10.2); Carbon Dioxide 26 mmol/L (22.0-30.0); Chloride 107 mmol/L (98-107); Creatinine Clearance Estimated 94 mL/min (50-200); Estimated Glomerular Filt Rate 97 ml/min (>60); GFR (African American) 118 ML/MIN (>60); Glucose 131 mg/dl (74-100); Potassium 4.1 mmoL/L (3.5-5.1); Sodium 138 mmol/L (136-145)
[2023-03-12 07:58] VITALS: BP 132/71; PULSE 84; RESP 20; TEMP 36.6; O2SAT 94
[2023-03-12 08:00] VITALS: PULSE 87
[2023-03-12] MEDS: ASPIRIN 81MG CHEWABLE TABLET 81 MG PO (08:25)
[2023-03-12] MEDS: DULOXETINE 30MG CAPSULE.DR 90 MG PO (08:26)
[2023-03-12] MEDS: IRBESARTAN 75MG TABLET 37.5 MG PO (08:27)
[2023-03-12] MEDS: ENOXAPARIN 40MG/0.4ML SYRINGE 40 MG SQ (08:27)
[2023-03-12] MEDS: GABAPENTIN 400MG CAPSULE 400 MG PO (08:27)
[2023-03-12] MEDS: SENNOSIDES 8.6MG/DOCUSATE 50MG TABLET 2 TAB PO (08:29)
[2023-03-12] MEDS: TRAMADOL 50MG TABLET 50 MG PO (08:29)
[2023-03-12] MEDS: ISOSORBIDE MONO 30MG TAB.ER.24H 30 MG PO (08:29)
[2023-03-12] MEDS: levETIRAcetam 500 MG TABLET PO (08:29)
[2023-03-12] MEDS: TAMSULOSIN 0.4MG CAPSULE 0.400000000000000022 MG PO (08:30)
[2023-03-12 09:06] LABS: Eosinophils % 2 % (0-3); Lymphocytes % 5 % (10-50); Monocytes % 6 % (2-9); Neutrophils % 84 % (42-76); Total Cells Counted 100
[2023-03-12 09:08] LABS: Platelet Estimate Normal
[2023-03-12 09:09] LABS: Anisocytosis 1+; Macrocytosis 1+; Rouleaux 1+
[2023-03-12 09:10] LABS: Tear Drop Cells 1+
[2023-03-12 09:21] LABS: Poikilocytosis 1+
--- NOTE | 2023-03-12 09:51 | EXP.DC.SUM ---
General Admission date:: 03/10/23 Discharge date: 03/12/23 HPI HPI HPI: Patient is a poor historian. Able to answer simple questions but most of history obtained from ER and nursing documentation Mr. Blakely is a 62-year-old male who resides [facility]. He has a history significant for chronic spasticity paralysis of lower extremities, wheelchair-bound, chronic respiratory failure on 2 L nasal cannula, obesity, CHF, CKD, RAJAN on BiPAP, hyperlipidemia, emphysema, diabetes, schizoaffective disorder. He presented to the ER today for evaluation due to concern for [facility]. According to report he was satting in the high 70s on 2 L this morning upon rounding. Suspicion that he did not wear his BiPAP last night. EMS was called and upon their arrival he was still hypoxic on 3 L nasal cannula but improved with increased to 4 L. Brought to the ER for further evaluation. Fingerstick noted to be within normal limits. Initial VBG concerning for respiratory acidosis. Imaging concerning for right lower lobe pneumonia and leukocytosis of 19. Patient meeting sepsis criteria with fever and tachycardia. Initiated on antibiotics. Started on BiPAP for hypercapnia. On arrival to the floor, patient is alert and interactive. Slow to respond, resting comfortably on BiPAP. O2 sats in the 90s. Unable to give any history of events. Hospital Course Hospital Course Hospital Course: Mr. Blakely is a 62-year-old male with multiple comorbidities who presented to the ER for altered mental status. Found to be septic with pneumonia and hypercapnic respiratory failure. Discussed case with ER, request admission for IV antibiotics, monitoring of cultures, and further treatment for sepsis and respiratory failure. Medicine agreed to admit. Pulmonology consulted to assist with hypercapnic failure and evaluation of RAJAN and emphysema along with treatment of pneumonia. Patient has done well with treatment for pneumonia and respiratory failure with use of BiPAP and antibiotics. Stable for discharge back to [facility] to complete antibiotics. Problems addressed as follows: Sepsis with hypercapnic respiratory failure secondary to pneumonia - fever of 102.4, leukocytosis of 19, worsening respiratory failure, pneumonia on chest imaging. Tachycardia 104. Showed improvement with initiation of antibiotics and treatment of his hypercapnic respiratory failure by using BiPAP. Showed response with BiPAP. Patient needs to wear his BiPAP nightly. Interrogation of machine by [employer] shows that he only wears it third of the time, less than 10 nights a month. Strongly recommend he wear it nightly where he is at high risk for readmission. Pulmonology assisted with care. Initially on vancomycin, cefepime, azithromycin during admission. Showed improvement clinically with white cell count decreased to 12 by day of discharge. Speech evaluated patient, recommend modified diet. Would benefit from repeat CBC, CMP, magnesium in 1 week. Will transition to linezolid and continue cefepime to complete 7 days of antibiotics. -Continue nasal cannula 1 to 2 L during the day if needed for O2 sats greater than 90%. Schizoaffective disorder: Continue Cymbalta 90 mg daily, gabapentin 400 mg tid, Keppra 500mg twice daily, Vraylar 3 mg daily Hypertension: continue losartan Hypothyroid: TSH 1.3 in December, continue levothyroxine 50 mcg daily Diabetes: A1c 5.7 the end of December (2 months ago). Recommend continuing only metformin at discharge. Resume trazodone nightly for sleep due upon discharge Continue tamsulosin 0.4 mg daily for BPH Continue bowel regimen from penitentiary Spent 30 minutes in discharge counseling, documentation, chart review, and direct care with patient. Exam Data for Last 24 hours Vital signs and Labs for Last 24 Hours: Temp Pulse Resp BP Pulse Ox O2 Del Method O2 Flow Rate 97.9 F 84 20 132/71 94 L Nasal Cannula 2 03/12/23 07:58 03/12/23 07:58 03/12/23 07:58 03/12/23 07:58 03/12/23 07:58 03/12/23 09:00 03/12/23 09:00 FiO2 35 03/11/23 23:38 Laboratory Results - last 24 hr 03/11/23 10:28: POC Glucose 262 H 03/11/23 15:51: POC Glucose 163 H 03/11/23 20:08: POC Glucose 188 H 03/12/23 05:17: POC Glucose 129 H 03/12/23 06:30: WBC 12.2 H D, RBC 2.92 L, Hgb 9.8 L, Hct 31.0 L, MCV 106.2 H, MCH 33.7 H, MCHC 31.7 L, RDW 14.9, Plt Count 255, MPV 8.9, Neut % (Auto) 79.9, Lymph % (Auto) 11.6, Louisa % (Auto) 5.7, Eos % (Auto) 2.5, Baso % (Auto) 0.3, Neut # (Auto) 9.7 H, Lymph # (Auto) 1.4, Louisa # (Auto) 0.7, Eos # (Auto) 0.3, Baso # (Auto) 0.0, Total Counted 100, Neutrophils % (Manual) 84 H, Band Neutrophils % 3.0, Lymphocytes % (Manual) 5 L, Monocytes % (Manual) 6, Eosinophils % (Manual) 2, Platelet Estimate Normal, Poikilocytosis 1+, Anisocytosis 1+, Macrocytosis 1+, Tear Drop Cells 1+, Rouleaux 1+, Sodium 138, Potassium 4.1, Chloride 107, Carbon Dioxide 26, Anion Gap 9.1, BUN 16 D, Creatinine 0.80, Estimated Creat Clear 94, Estimated GFR 97, Est GFR ( Amer) 118 D, Glucose 131 H, Calcium 7.6 L I & O for Last 24 hours: Intake & Output 03/09/23 03/10/23 03/11/23 03/12/23 23:59 23:59 23:59 23:59 Intake Total 1920 / 1920 2270 / 2390 600 / 600 Output Total 1175 / 1175 1475 / 1475 600 / 600 Balance 745 / 745 795 / 915 0 / 0 Weight 88.252 kg 88.1 kg 89.04 kg Microbiology Reports for the Last 24 Hours: Microbiology 03/10/23 11:24 Sputum - Expectorated Sputum Gram Stain - Final Constitutional Constitutional: no acute distress, obese and chronically ill appearing *Routine HEENT Exam Head: Present normocephalic Eye: Present EOMI and PERRL ENT: Present mucous membranes moist *Routine Neck Exam Neck: Present supple; Absent lymphadenopathy *Routine Respiratory Exam Respiratory: Present CTA bilaterally and distant breath sounds; Absent rhonchi, stridor, wheezes or crackles *Routine Cardiovascular Exam Cardiovascular: Present RRR *Routine Abdominal Exam Abdominal: Present soft and normoactive bowel sounds; Absent tenderness *Routine Extremities Exam Extremities: Absent cyanosis, clubbing or edema Comments: Sarcopenia of lower extremities, *Routine Skin Exam Skin: Present warm; Absent rash *Routine Neurological Exam Neurological: Present alert and normal speech; Absent altered mental status or moving all extremities Comments: Weak upper extremities but has function of both arms. Unable to move legs. Slow to respond to questions but answers are appropriate Results Data Completed and Pending Labs on day of discharge: Labs from last 24 hours 03/12/23 03/12/23 03/11/23 06:30 05:17 20:08 WBC 12.2 H D RBC 2.92 L Hgb 9.8 L Hct 31.0 L MCV 106.2 H MCH 33.7 H MCHC 31.7 L RDW 14.9 Plt Count 255 MPV 8.9 Neut % (Auto) 79.9 Lymph % (Auto) 11.6 Louisa % (Auto) 5.7 Eos % (Auto) 2.5 Baso % (Auto) 0.3 Neut # (Auto) 9.7 H Lymph # (Auto) 1.4 Louisa # (Auto) 0.7 Eos # (Auto) 0.3 Baso # (Auto) 0.0 Total Counted 100 Neutrophils % (Manual) 84 H Band Neutrophils % 3.0 Lymphocytes % (Manual) 5 L Monocytes % (Manual) 6 Eosinophils % (Manual) 2 Platelet Estimate Normal Poikilocytosis 1+ Anisocytosis 1+ Macrocytosis 1+ Tear Drop Cells 1+ Rouleaux 1+ Sodium 138 Potassium 4.1 Chloride 107 Carbon Dioxide 26 Anion Gap 9.1 BUN 16 D Creatinine 0.80 Estimated Creat Clear 94 Estimated GFR 97 Est GFR ( Amer) 118 D Glucose 131 H POC Glucose 129 H 188 H Calcium 7.6 L 03/11/23 03/11/23 15:51 10:28 WBC RBC Hgb Hct MCV MCH MCHC RDW Plt Count MPV Neut % (Auto) Lymph % (Auto) Louisa % (Auto) Eos % (Auto) Baso % (Auto) Neut # (Auto) Lymph # (Auto) Louisa # (Auto) Eos # (Auto) Baso # (Auto) Total Counted Neutrophils % (Manual) Band Neutrophils % Lymphocytes % (Manual) Monocytes % (Manual) Eosinophils % (Manual) Platelet Estimate Poikilocytosis Anisocytosis Macrocytosis Tear Drop Cells Rouleaux Sodium Potassium Chloride Carbon Dioxide Anion Gap BUN Creatinine Estimated Creat Clear Estimated GFR Est GFR ( Amer) Glucose POC Glucose 163 H 262 H Calcium DS: Diagnosis Discharge Diagnosis (1) Acute respiratory failure with hypoxia and hypercarbia: Status: Acute Code(s): J96.01 - Acute respiratory failure with hypoxia; J96.02 - Acute respiratory failure with hypercapnia (2) Pneumonia: Status: Resolved Code(s): J18.9 - Pneumonia, unspecified organism Qualifiers: Laterality: unspecified laterality Lung location: unspecified part of lung Pneumonia type: due to unspecified organism Qualified Code(s): J18.9 - Pneumonia, unspecified organism Meds Home Medications and Allergies Home Medications Medication Instructions Recorded Confirmed Type atorvastatin 40 mg tablet (Lipitor) 40 mg PO HS 03/24/17 03/10/23 History isosorbide mononitrate 30 mg 30 mg PO DAILY 04/11/17 03/10/23 History tablet,extended release 24 hr magnesium oxide 400 mg PO HS 09/30/17 03/10/23 History acetaminophen 500 mg tablet 500 mg PO Q4H PRN Fever Or Pain 11/10/17 03/10/23 History omeprazole 20 mg capsule,delayed 20 mg PO Q48H 11/10/17 03/10/23 History release levothyroxine 50 mcg tablet 50 mcg PO DAILY 11/11/17 03/10/23 History losartan 25 mg tablet (Cozaar) 12.5 mg PO DAILY 09/29/18 03/10/23 History aspirin 81 mg chewable tablet 81 mg PO DAILY 01/25/19 03/10/23 History loperamide 2 mg capsule 2 mg PO Q4H PRN Diarrhea 01/25/19 03/10/23 History trazodone 100 mg tablet 100 mg PO HS 02/24/20 03/10/23 History tamsulosin 0.4 mg capsule (Flomax) 0.4 mg PO DAILY 04/24/20 03/10/23 History metformin 500 mg tablet 500 mg PO BIDWMEAL 10/30/20 03/10/23 History docusate calcium 240 mg capsule 240 mg PO DAILY PRN Constipation 02/09/21 03/10/23 History lactulose 10 gram/15 mL oral 30 ml PO DAILY PRN Constipation 02/09/21 03/10/23 History solution furosemide 40 mg tablet (Lasix) 40 mg PO DAILY #30 tabs 03/20/21 03/10/23 Rx duloxetine 60 mg capsule,delayed 60 mg PO DAILY 10/17/21 03/10/23 History release linagliptin 5 mg tablet (Tradjenta) 5 mg PO DAILY 10/17/21 03/10/23 History tiotropium bromide 1.25 2 puff inhalation DAILY 10/17/21 03/10/23 History mcg/actuation mist for inhalation (Spiriva Respimat) spironolactone 50 mg tablet 50 mg PO DAILY #90 tabs 11/29/21 03/10/23 Rx aluminum hydrox-magnesium carb 95 30 ml PO Q4H PRN GI upset 11/21/22 03/10/23 History mg-358 mg/15 mL oral suspension (Acid Gone Antacid) bisacodyl 5 mg tablet 10 mg PO DAILY PRN Constipation 11/21/22 03/10/23 History duloxetine 30 mg capsule,delayed 30 mg PO DAILY 11/21/22 03/10/23 History release polyethylene glycol 3350 17 gram 17 g PO DAILY 11/21/22 03/10/23 History oral powder packet cariprazine 3 mg capsule (Vraylar) 3 mg PO DAILY 01/08/23 03/10/23 History cyanocobalamin (vitamin B-12) 250 750 mcg PO DAILY 01/08/23 03/10/23 History mcg tablet (Vitamin B-12) levetiracetam 500 mg tablet 500 mg PO BID 01/08/23 03/10/23 History (Keppra) sennosides 8.6 mg-docusate sodium 2 tab PO BID 01/08/23 03/10/23 History 50 mg tablet (Senexon-S) bisacodyl 10 mg rectal suppository 10 mg ND DAILY PRN Constipation 01/28/23 03/10/23 History insulin glargine 100 unit/mL (3 15 unit SQ HS 01/29/23 03/10/23 History mL) subcutaneous pen (Lantus Solostar U-100 Insulin) insulin lispro protamine-lispro 17 unit SQ BID 01/29/23 03/10/23 History 100 unit/mL (75-25) subcutaneous pen (Humalog Mix 75-25 KwikPen) gabapentin 400 mg capsule 400 mg PO TID 30 days #90 caps 02/13/23 03/10/23 Rx albuterol sulfate 90 mcg/actuation 2 inh inhalation QID PRN Shortness 03/10/23 03/10/23 History aerosol inhaler Of Breath Or Wheezing folic acid 800 mcg tablet 800 mcg PO DAILY 03/10/23 03/10/23 History guaifenesin 100 mg/5 mL oral 200 mg PO Q4H PRN Cough 03/10/23 03/10/23 History liquid (Diabetic Tussin EX) multivitamin with folic acid 400 1 tab PO DAILY 03/10/23 03/10/23 History mcg tablet (Tab-A-Laron) tramadol 100 mg tablet 100 mg PO QID 03/10/23 03/10/23 History cefepime 2 gram solution for 2 g IV Q12H 5 days #10 ea 03/12/23 Rx injection linezolid 600 mg tablet 600 mg PO BID 5 days #9 tabs 03/12/23 Rx New Prescriptions to Start Prescriptions: Luis Suzolid Luis Go Allergies Allergy/AdvReac Type Severity Reaction Status Date / Time morphine [MORPHINE] Allergy Mild HURTS Verified 03/10/23 08:10 STOMACH nitroglycerin AdvReac Mild Nausea Verified 03/10/23 08:10 Discharge Plan Disposition Patient Disposition: er Intermediate Care Fac Condition: Fair Discharge Order Discharge Orders: Discharge Order (Routine); Ordered 03/12/23 Ordered By: Luis Go Follow up Plan Follow up with: Salmoe Shah MD [Physician] - 03/27/23 1:00 pm Prescriptions/Medication Reconciliation: New cefepime 2 gram Recon Soln 2 g IV Q12H 5 Days Qty: 10 0RF Rx Instructions: Needs 9 doses, first dose due 03/12/23 at 10pm linezolid 600 mg tablet 600 mg PO BID 5 Days Qty: 9 0RF Rx Instructions: first dose evening of 03/12/23 Continued atorvastatin [Lipitor] 40 mg tablet 40 mg PO HS losartan [Cozaar] 25 mg tablet 12.5 mg PO DAILY magnesium oxide 400 mg capsule 400 mg PO HS tamsulosin [Flomax] 0.4 mg capsule 0.4 mg PO DAILY metformin 500 mg tablet 500 mg PO BIDWMEAL spironolactone 50 mg tablet 50 mg PO DAILY Qty: 90 3RF Tradjenta 5 mg tablet 5 mg PO DAILY Spiriva Respimat 1.25 mcg/actuation mist 2 puff inhalation DAILY Acid Gone Antacid 95-358 mg/15 mL suspension 30 ml PO Q4H PRN (Reason: GI upset) polyethylene glycol 3350 17 gram powder in packet 17 g PO DAILY bisacodyl 5 mg tablet 10 mg PO DAILY PRN (Reason: Constipation) duloxetine 30 mg capsule,delayed release(DR/EC) 30 mg PO DAILY isosorbide mononitrate 30 mg tablet extended release 24 hr 30 mg PO DAILY furosemide [Lasix] 40 mg tablet 40 mg PO DAILY Qty: 30 3RF bisacodyl 10 mg suppository 10 mg ND DAILY PRN (Reason: Constipation) insulin lispro protamin-lispro [Humalog Mix 75-25 KwikPen] 100 unit/mL (75-25) insulin pen 17 unit SQ BID insulin glargine [Lantus Solostar U-100 Insulin] 100 unit/mL (3 mL) insulin pen 15 unit SQ HS gabapentin 400 mg capsule 400 mg PO TID 30 Days Qty: 90 5RF loperamide 2 MG capsule 2 mg PO Q4H PRN (Reason: Diarrhea) aspirin 81 MG tablet,chewable 81 mg PO DAILY docusate calcium 240 MG capsule 240 mg PO DAILY PRN (Reason: Constipation) lactulose 10 GM/15 ML solution 30 ml PO DAILY PRN (Reason: Constipation) sennosides-docusate sodium [Senexon-S] 8.6-50 mg Tablet 2 tab PO BID cyanocobalamin (vitamin B-12) [Vitamin B-12] 250 mcg Tablet 750 mcg PO DAILY Vraylar 3 mg Capsule 3 mg PO DAILY levetiracetam [Keppra] 500 mg tablet 500 mg PO BID acetaminophen 500 MG tablet 500 mg PO Q4H PRN (Reason: Fever Or Pain) omeprazole 20 MG capsule,delayed release(DR/EC) 20 mg PO Q48H levothyroxine 50 MCG tablet 50 mcg PO DAILY duloxetine 60 mg capsule,delayed release(DR/EC) 60 mg PO DAILY trazodone 100 MG tablet 100 mg PO HS tramadol 100 mg Tablet 100 mg PO QID guaifenesin [Diabetic Tussin EX] 100 mg/5 mL Liquid 200 mg PO Q4H PRN (Reason: Cough) albuterol sulfate 90 mcg/actuation HFA aerosol inhaler 2 inh IH QID PRN (Reason: Shortness Of Breath Or Wheezing) folic acid 800 mcg tablet 800 mcg PO DAILY multivitamin with folic acid [Tab-A-Laron] 400 mcg Tablet 1 tab PO DAILY Problem Reconciliation Problems Reviewed?: Yes Patient Discharge Instructions ACTIVITY: Continue current activity DIET: continue same diet Patient Instructions: DI for Pneumonia -- Adult, DI for Constipation, DI for Sepsis -- Adult, DI for Respiratory Failure Providers Primary Care Provider: Provider,Referral Admit Provider: Luis Go Attending Provider: Luis Go
--- NOTE | 2023-03-12 09:54 | P.PN_ITS ---
Subjective *Date: 03/12/23 *Time: 11:44 Interval history: No acute respiratory events overnight. Pulmonology Exam Inpatient Vital signs and Labs for Last 24 Hours: Temp Pulse Resp BP Pulse Ox O2 Del Method O2 Flow Rate 97.9 F 84 20 132/71 94 L Nasal Cannula 2 03/12/23 07:58 03/12/23 07:58 03/12/23 07:58 03/12/23 07:58 03/12/23 07:58 03/12/23 09:00 03/12/23 09:00 FiO2 35 03/11/23 23:38 Laboratory Results - last 24 hr 03/11/23 10:28: POC Glucose 262 H 03/11/23 15:51: POC Glucose 163 H 03/11/23 20:08: POC Glucose 188 H 03/12/23 05:17: POC Glucose 129 H 03/12/23 06:30: WBC 12.2 H D, RBC 2.92 L, Hgb 9.8 L, Hct 31.0 L, MCV 106.2 H, MCH 33.7 H, MCHC 31.7 L, RDW 14.9, Plt Count 255, MPV 8.9, Neut % (Auto) 79.9, Lymph % (Auto) 11.6, [place]nn % (Auto) 5.7, Eos % (Auto) 2.5, Baso % (Auto) 0.3, Neut # (Auto) 9.7 H, Lymph # (Auto) 1.4, [place]nn # (Auto) 0.7, Eos # (Auto) 0.3, Baso # (Auto) 0.0, Total Counted 100, Neutrophils % (Manual) 84 H, Band Neutrophils % 3.0, Lymphocytes % (Manual) 5 L, Monocytes % (Manual) 6, Eosinophils % (Manual) 2, Platelet Estimate Normal, Poikilocytosis 1+, Anisocytosis 1+, Macrocytosis 1+, Tear Drop Cells 1+, Rouleaux 1+, Sodium 138, Potassium 4.1, Chloride 107, Carbon Dioxide 26, Anion Gap 9.1, BUN 16 D, Creatinine 0.80, Estimated Creat Clear 94, Estimated GFR 97, Est GFR ( Amer) 118 D, Glucose 131 H, Calcium 7.6 L I & O for Labs for Last 24 Hours: Intake & Output 03/09/23 03/10/23 03/11/23 03/12/23 23:59 23:59 23:59 23:59 Intake Total 1920 / 1920 2270 / 2390 600 / 600 Output Total 1175 / 1175 1475 / 1475 600 / 600 Balance 745 / 745 795 / 915 0 / 0 Weight 194 lb 9 oz 194 lb 3.636 oz 196 lb 4.8 oz Microbiology Reports for the Last 24 Hours: Microbiology 03/10/23 11:24 Sputum - Expectorated Sputum Gram Stain - Final Constitutional: Present moderate distress Head: Present normocephalic and atraumatic ENT: Present normal exam, normal oropharynx and mucous membranes moist Neck: Present normal inspection and full ROM Respiratory: Present respiratory distress and able to speak in complete sentences; Absent wheezes or crackles Cardiac: Present S1/S2, Tachycardia and radial pulses present GI: Present soft and distention; Absent tenderness or guarding Skin: Present intact; Absent cyanosis or jaundice Neuro: Present alert and awake; Absent oriented x 3 Extremities: Present normal inspection; Absent clubbing or cyanosis Psychiatric: Present cooperative; Absent normal affect Assessment and Plan *Assessment and plan (1) Acute respiratory failure with hypoxia and hypercarbia: Status: Acute Category: Medical Code(s): J96.01 - Acute respiratory failure with hypoxia; J96.02 - Acute respiratory failure with hypercapnia (2) Pneumonia: Status: Resolved Qualifiers: Laterality: unspecified laterality Lung location: unspecified part of lung Pneumonia type: due to unspecified organism Qualified Code(s): J18.9 - Pneumonia, unspecified organism Category: Medical Code(s): J18.9 - Pneumonia, unspecified organism Plan Mr. Blakely is a 62-year-old male no significant smoking history, sleep apnea with AHI 89.3 from his sleep study from September 2021 skilled nursing resident on BiPAP therapy presented to the hospital with worsening respiratory distress and altered mentation found to be in hypercarbic respiratory failure and pulmonary was called for further evaluation and management. Last followed with sleep clinic May 2022, noncompliant with BiPAP therapy at that point of time based on the notes. CTA upon admission no evidence of pulmonary embolism, noted to have right lower lobe airspace disease. He had a most recent admission in December 2022 status post questionable aspiration event, cardiac arrest CPR with food expelled from the mouth. Febrile on presentation. Neutrophilic leukocytosis. VBG on this admission, hypercarbic respiratory failure status post initiation of BiPAP in the ER with follow-up VBG showed improved hypercarbic respiratory failure and septic with subsequent ABG showed improving hypercarbic respiratory failure patient was weaned to nasal cannula. Interval update: No acute respiratory vents overnight. Significant improvement in leukocytosis. Pending culture results. Continue to remain on RA Plan: -Continue oxygen supplementation only as needed to maintain O2 saturation goal of 90 to 95%. Currently on room air -Change vancomycin to Linezolid pending MRSA swab. Plan was to follow the MRSA swab and discontinue linezolid if results negative. If positive will complete for a total of 7-day course. -Continue cefepime x 7 days and azithromycin x 5 days pending sputum culture results. -DuoNebs every 6 hours on as-needed basis -Continue BiPAP therapy 18/8, RR 16 and FiO2 of 35% at night. Compliance report from [facility]. -Follow-up with speech and swallow recommendation # Thank you for involving pulmonary in this patient care. Will continue to follow.
--- NOTE | 2023-03-12 10:37 | HMH.SLDYSPHA ---
Speech & Language Evaluation Speech/Language Dysphagia Evaluation Start: 03/12/23 10:17 Freq: ONCE Status: Active Protocol: Document 03/12/23 10:21 MINGO (Rec: 03/12/23 10:36 MINGO [id number]) Dysphagia Assess/Goals/Plan Assessment Date of Evaluation: 03/12/23 Evaluation Type Initial Certification Assessment/Problems swallowing concerns per MD order Does Patient Qualify for Service No Qualify/Failure Comment Based on observations made throughout clinical bedside swallow evaluation, mastication and manipulation of bolus, as well as swallowing appear to be within functional limits and no further skilled speech therapy services are warranted at this time. Recommendations PHYSICIAN CERTIFICATION: The specified therapy services are required, authorized, and reviewed every 30 days. Diet Recommendations Mechanical Soft Liquid Type Recommendations Normal/Thin SL Swallow Guidelines Standard Aspiration Prec.,Eat at slow rate Dysphagia Swallow Precautions/Strategies Sitting Upright (90 deg),Small Bites and Sips,Alternate Liquids/Solids Plan Pt/Guardian verbally ack understanding Yes of dx/prognosis/goals G -code Required No [employer] Goals Diet mechanical soft with Liquids Thin Liquids Education Instructions provided Discussed CSE results, aspiration precautions, and diet recommendations with pt, nursing, and care management all of which expressed understanding. Pt/Caregiver able to recall information Able to recall/restate Reinforcement needed No Speech & Language HPI History Present Illness Description of Patient Problem HEALTH AIDE pulled following information from ER documentation dated 03/10/23, 62-year-old male with extensive past medical history including chronic spastic paralysis of the lower extremities for which he is wheelchair-bound, chronic respiratory failure on 2 L nasal cannula, obesity, CHF, CKD, PAD, RAJAN on BiPAP, CAD, hypertension, hyperlipidemia, pulmonary emphysema, type 2 diabetes, schizoaffective disorder, and subdural hygroma presenting to the emergency department for evaluation with concern for low oxygen saturation at his nursing facility. CXR impressions: No acute cardiopulmonary process Chest CT impressions: No evidence for PE on this exam. Acute right lung pneumonia. Rehab Services Assessed Speech therapy Language Primary Language Lithuanian General Information General Current Food Consistancy Mechanical Soft,Thin Liquids Dentition Poor Dentition Oxygen Status Nasal Cannula Patient Orientation Person,Place Ability to Follow Directions Good Communication Ability Mild Impairment Dysphagia:Food Presentation Evaluation Food Type Pureed,Mechanical Soft,Liquid, Pudding Dysphagia Evaluation Summary Pt was seen sitting upright in his bed this AM. Nursing reports tolerating current diet and medications well. Pt reports same. He was A&O to name, birthday, and place. Regular solids were not presented during CSE 2' poor dentition. All bolus trials presented were given x3 to assess for fatigue and consistency. He was given the following with no overt s/sxs of aspiration: thin liquids ( ice chips, spoonful of water, open cup and straw sips, two consecutive sips from open cup and straw), puree (applesauce ), pudding, and mechanical soft (nutrigrain bar.) Mastication and manipulation of the solid bolus presentation were within functional limits at this time . Based on this observations accompanied with no overt s/ sxs of aspiration throughout the CSE and no signs of discomfort or distress, it is recommended pt continue on his current diet of mechanical soft and thin liquids, no further skilled speech therapy services are warranted at this time. Stroke Dysphagia Assessment PHYSICIAN CERTIFICATION: I certify the specified therapy services for Lalito Blakely are required, authorized, and reviewed every 30 days.
[2023-03-12 11:18] VITALS: BP 106/70; PULSE 90; RESP 18; TEMP 37.3; O2SAT 95
[2023-03-12] MEDS: LINEZOLID 600 MG TABLET PO (11:35)
[2023-03-12] MEDS: CEFEPIME HCL 2 GM in 0.9 % SODIUM CHLORIDE 100 ML IV (12:02)
== END 2023-03-12 13:11 | DRG 871 ==
LOC: ER 13:05 → 2ND 14:07
PROVIDERS: Internal Medicine Pulmonary Disease; Admitting Provider Internal Medicine Adolescent Medicine; Emergency Provider Emergency Medicine; Visit Provider Internal Medicine Adolescent Medicine
DX: A41.9 Sepsis, unspecified organism (principal); J18.9 Pneumonia, unspecified organism; J96.01 Acute respiratory failure with hypoxia; J96.02 Acute respiratory failure with hypercapnia; I50.30 Unspecified diastolic (congestive) heart failure; J96.11 Chronic respiratory failure with hypoxia; Z99.3 Dependence on wheelchair; Z99.81 Dependence on supplemental oxygen; E66.9 Obesity, unspecified; Z68.32 Body mass index [BMI] 32.0-32.9, adult; J43.9 Emphysema, unspecified; E11.9 Type 2 diabetes mellitus without complications; I73.9 Peripheral vascular disease, unspecified; G47.33 Obstructive sleep apnea (adult) (pediatric); I25.10 Atherosclerotic heart disease of native coronary artery without angina pectoris; I11.0 Hypertensive heart disease with heart failure; F17.210 Nicotine dependence, cigarettes, uncomplicated; G83.9 Paralytic syndrome, unspecified; Z95.5 Presence of coronary angioplasty implant and graft; Z79.4 Long term (current) use of insulin; F25.9 Schizoaffective disorder, unspecified; E11.628 Type 2 diabetes mellitus with other skin complications; L84 Corns and callosities; N40.0 Benign prostatic hyperplasia without lower urinary tract symptoms
CPT/HCPCS: 36415; 51702; 70450; 71045; 71275; 74177; 80048; 80053; 81001; 82803; 82962; 83605; 83690; 83735; 83880; 84484; 85007; 85014; 85018; 85025; 85048; 85049; 85610; 85730; 87040; 87070; 87081; 87205; 87636; 92610; 93005; 94640; 94660; 94760; 99291; J0131; J0456; Q9967

== ENCOUNTER 2023-05-01 07:10 | Inpatient (IN) | payer MEDICARE, MEDICAID, SELFPAY ==
[2023-05-01] VITALS (27 sets, daily range): BP systolic 121–149; BP diastolic 64–89; PULSE 80–101; RESP 18–22; TEMP 36.7–37.2; O2SAT 95–100; BMI 39.2; BMI 31.2; BMI 37.5
--- NOTE | 2023-05-01 07:01 | XR_ITS ---
FINAL REPORT CLINICAL HISTORY: resp failure COMPARISON: 03/10/2023 FINDINGS: A single portable view of the chest was obtained. Cardiomegaly is noted. Pulmonary vascularity is within normal limits. The mediastinum is within normal limits. No acute pulmonary abnormality is identified. The bony thorax is intact. IMPRESSION: No active cardiopulmonary disease. Reviewed, Interpreted and Dictated by Finesse Matta III, MD Transcribed by Faith Wolfe Authenticated and [facility]
--- NOTE | 2023-05-01 07:22 | ED_ITS ---
Discharge Plan Disposition Patient Disposition: Admitted Clinical Impressions Clinical Impression: COPD exacerbation, Acute respiratory failure with hypoxia and hypercarbia Discharge ED Provider: Eliseo Nunez General Adult HPI General Chief complaint: Altered Mental Status Stated complaint: altered Time Seen by Provider: 05/01/23 07:17 History of Present Illness HPI narrative: 62-year-old male history of cerebral palsy, COPD on 2 L nasal cannula at home, CHF, CKD, anxiety, schizoaffective disorder, chronic intolerance and noncompliance to BiPAP at night presenting with lethargy and decreased level of consciousness. Patient was at breakfast this morning, 04/30 and was falling asleep. Staff states that they were unable to wake him up, so they called EMS. On EMS arrival, patient was arousable, alert, answering questions, had no complaints. Was still brought to the emergency department for further evaluation. Patient denies chest pain, shortness of breath, nausea, vomiting, diaphoresis, cough, diarrhea, abdominal pain, chest pain, and any further concerns at this time. On 2 L nasal cannula which she wears at home. Related Data Home Medications Medication Instructions Recorded Confirmed atorvastatin 40 mg tablet (Lipitor) 40 mg PO HS Cholesterol 03/24/17 05/01/23 isosorbide mononitrate 30 mg 30 mg PO DAILY Chest Pain 04/11/17 05/01/23 tablet,extended release 24 hr magnesium oxide 400 mg PO HS Supplement 09/30/17 05/01/23 acetaminophen 500 mg tablet 500 mg PO Q4HP PRN Fever Or Pain 11/10/17 05/01/23 omeprazole 20 mg capsule,delayed 20 mg PO Q48H Acid Reflux 11/10/17 05/01/23 release levothyroxine 50 mcg tablet 50 mcg PO DAILYDM THYROID 11/11/17 05/01/23 losartan 25 mg tablet (Cozaar) 25 mg PO DAILY High Blood Pressure 09/29/18 05/01/23 aspirin 81 mg chewable tablet 81 mg PO DAILY Heart Disease 01/25/19 05/01/23 loperamide 2 mg capsule 2 mg PO Q4HP PRN Diarrhea 01/25/19 05/01/23 trazodone 100 mg tablet 100 mg PO HS Insomnia 02/24/20 05/01/23 tamsulosin 0.4 mg capsule (Flomax) 0.4 mg PO DAILY URINARY SYMPTOMS 04/24/20 05/01/23 metformin 500 mg tablet 500 mg PO BIDWMEAL Diabetes 10/30/20 05/01/23 docusate calcium 240 mg capsule 240 mg PO DAILYP PRN Constipation 02/09/21 05/01/23 lactulose 10 gram/15 mL oral 30 ml PO DAILYP PRN Constipation 02/09/21 05/01/23 solution duloxetine 60 mg capsule,delayed 60 mg PO DAILY MOOD 10/17/21 05/01/23 release linagliptin 5 mg tablet (Tradjenta) 5 mg PO DAILY Diabetes 10/17/21 05/01/23 tiotropium bromide 1.25 2 puff inhalation DAILY Copd 10/17/21 05/01/23 mcg/actuation mist for inhalation (Spiriva Respimat) aluminum hydrox-magnesium carb 95 30 ml PO Q4HP PRN Acid Reflux 11/21/22 05/01/23 mg-358 mg/15 mL oral suspension (Acid Gone Antacid) bisacodyl 5 mg tablet 10 mg PO DAILYP PRN Constipation 11/21/22 05/01/23 duloxetine 30 mg capsule,delayed 30 mg PO DAILY MOOD 11/21/22 05/01/23 release polyethylene glycol 3350 17 gram 17 g PO DAILY Constipation 11/21/22 05/01/23 oral powder packet cariprazine 3 mg capsule (Vraylar) 3 mg PO DAILY MOOD 01/08/23 05/01/23 cyanocobalamin (vitamin B-12) 250 750 mcg PO DAILY Supplement 01/08/23 05/01/23 mcg tablet (Vitamin B-12) sennosides 8.6 mg-docusate sodium 2 tab PO BID Constipation 01/08/23 05/01/23 50 mg tablet (Senexon-S) bisacodyl 10 mg rectal suppository 10 mg [place] DAILYP PRN Constipation 01/28/23 05/01/23 insulin glargine 100 unit/mL (3 15 unit SQ HS Diabetes 01/29/23 05/01/23 mL) subcutaneous pen (Lantus Solostar U-100 Insulin) insulin lispro protamine-lispro 17 unit SQ BID Diabetes 01/29/23 05/01/23 100 unit/mL (75-25) subcutaneous pen (Humalog Mix 75-25 KwikPen) albuterol sulfate 90 mcg/actuation 2 inh inhalation QIDP PRN 03/10/23 05/01/23 aerosol inhaler Shortness Of Breath Or Wheezing folic acid 800 mcg tablet 800 mcg PO DAILY Supplement 03/10/23 05/01/23 guaifenesin 100 mg/5 mL oral 200 mg PO Q4HP PRN Cough 03/10/23 05/01/23 liquid (Diabetic Tussin EX) multivitamin with folic acid 400 1 tab PO DAILY Supplement 03/10/23 05/01/23 mcg tablet (Tab-A-Laron) furosemide 40 mg tablet (Lasix) 40 mg PO DAILY Fluid 05/01/23 05/01/23 gabapentin 400 mg capsule 400 mg PO TID NERVE PAIN 05/01/23 05/01/23 levetiracetam 1,000 mg tablet 1,000 mg PO BID SEIZURES 05/01/23 05/01/23 (Keppra) spironolactone 50 mg tablet 50 mg PO DAILY Fluid 05/01/23 05/01/23 tramadol 100 mg tablet 100 mg PO QID MODERATE TO SEVERE 05/01/23 05/01/23 PAIN Allergies Allergy/AdvReac Type Severity Reaction Status Date / Time morphine [MORPHINE] Allergy Mild HURTS Verified 03/27/23 13:11 STOMACH nitroglycerin AdvReac Mild Nausea Verified 03/27/23 13:11 [facility] Disclaimer: The information contained in this section may have been updated after the patient was seen, as this information can be updated by other users. Medical History Acute respiratory failure with hypoxia and hypercarbia Anemia Anxiety Arthritis of sternoclavicular joint Aspiration into airway BPH (benign prostatic hyperplasia) Breathing-related sleep disorder Bronchomalacia CAD (coronary artery disease) CAD (coronary atherosclerotic disease) Celiac artery stenosis Chronic heart failure with preserved ejection fraction (HFpEF) Chronic subdural hematoma Chronic subdural hematoma COPD (chronic obstructive pulmonary disease) Coronary arteriosclerosis in [place] artery Depression Dyspnea on exertion Edema Extreme obesity GERD (gastroesophageal reflux disease) Heart failure, NYHA class 2 HHD (hypertensive heart disease) HLD (hyperlipidemia) Hypertension with goal to be determined Hypertensive heart disease without heart failure Hypothyroid Hypothyroidism, unspecified Impingement syndrome of both shoulders Intolerance to BiPAP/CPAP Obesity Obesity, Class II, BMI 35-39.9, isolated (see actual BMI) Osteopenia Other hyperlipidemia Pain in left wrist Post-traumatic subdural hematoma Pulmonary emphysema Renal insufficiency Renal insufficiency Renal lesion Right lower lobe pneumonia Seizure SOB (shortness of breath) Soft tissue disorder, unspecified Subdural hematoma Subdural hematoma due to concussion Synovial plica syndrome of left knee Type 2 diabetes mellitus with pressure callus Surgical History H/O cardiac catheterization H/O heart artery stent History of arthroscopy of shoulder History of carpal tunnel release Family History Other Cancer Diabetes Social History (Updated 03/27/23 @ 13:13 by Barbie Anderson) Smoking Status: Unknown if ever smoked alcohol intake: never substance use type: denies use current occupational status: disabled Travel in the last 8 weeks: None caregiver/support person: Yes household members: caregiver housing: [facility] caffeine: No ROS Obtained: Yes All systems reviewed & no additional complaints except as documented Physical Exam General General appearance: alert and in no apparent distress Head Head exam: atraumatic and normocephalic Eye Eye exam: Present normal appearance, PERRL and EOMI ENT ENT exam: Present mucous membranes dry Neck Neck exam: Present normal inspection, full ROM and trachea midline Respiratory Respiratory exam: Present wheezes (Bilaterally with decreased breath sounds on the left side) and other (2 L nasal cannula in place); Absent respiratory distress, stridor, accessory muscle use or prolonged expiratory phase Cardiovascular Cardiovascular exam: Present regular rate and normal rhythm Abdominal Exam Abdominal exam: Present soft; Absent distention, tenderness, guarding, rebound or rigidity Extremities Exam Extremities exam: Present other (Chronically contracted. No edema or pain); Absent edema Neurological Exam Neurological exam: Present alert, oriented X3, CN II-XII intact and normal gait; Absent motor sensory deficit Skin Skin exam: Present warm and dry; Absent diaphoresis or erythema Medical Decision Making Medical Records Medical records reviewed: Yes I reviewed the patient's medical records. Gaudencio Inquiry Pt receiving controlled substance: No Gaudencio was queried for this patient: No Vital Signs: 05/01/23 07:10 05/01/23 07:30 05/01/23 08:01 Temperature 98.6 F Temperature Source Oral Pulse Rate 84 84 Pulse Rate [Apical] 88 Respiratory Rate 20 20 22 Blood Pressure 122/75 130/81 Blood Pressure [Right Arm] 121/66 Blood Pressure Mean 90 97 Blood Pressure Mean [Right Arm] 84 Blood Pressure Source [Right Arm] Automatic Cuff Blood Pressure Position [Right Arm] Sitting 02 Sat by Pulse Oximetry 99 96 96 Oxygen Delivery Method Nasal Cannula Nasal Cannula Oxygen Flow Rate (LPM) 2 2 05/01/23 08:30 05/01/23 09:00 05/01/23 09:31 Temperature Temperature Source Pulse Rate 83 84 80 Pulse Rate [Apical] Respiratory Rate 20 18 18 Blood Pressure 139/75 145/76 H 129/69 Blood Pressure [Right Arm] Blood Pressure Mean 96 88 88 Blood Pressure Mean [Right Arm] Blood Pressure Source [Right Arm] Blood Pressure Position [Right Arm] 02 Sat by Pulse Oximetry 99 99 99 Oxygen Delivery Method BiPAP BiPAP BiPAP Oxygen Flow Rate (LPM) 05/01/23 10:00 05/01/23 10:30 05/01/23 10:37 Temperature Temperature Source Pulse Rate 86 89 84 Pulse Rate [Apical] Respiratory Rate 18 18 Blood Pressure 149/87 H 130/81 Blood Pressure [Right Arm] Blood Pressure Mean 101 93 Blood Pressure Mean [Right Arm] Blood Pressure Source [Right Arm] Blood Pressure Position [Right Arm] 02 Sat by Pulse Oximetry 99 97 Oxygen Delivery Method BiPAP BiPAP Oxygen Flow Rate (LPM) 05/01/23 10:37 05/01/23 11:00 05/01/23 11:30 Temperature Temperature Source Pulse Rate 84 92 H 92 H Pulse Rate [Apical] Respiratory Rate 18 18 Blood Pressure 136/88 132/73 Blood Pressure [Right Arm] Blood Pressure Mean 102 93 Blood Pressure Mean [Right Arm] Blood Pressure Source [Right Arm] Blood Pressure Position [Right Arm] 02 Sat by Pulse Oximetry 97 97 Oxygen Delivery Method BiPAP BiPAP Oxygen Flow Rate (LPM) 05/01/23 12:00 05/01/23 12:30 05/01/23 13:00 Temperature Temperature Source Pulse Rate 88 92 H Pulse Rate [Apical] Respiratory Rate 18 18 Blood Pressure 147/82 H 136/79 132/74 Blood Pressure [Right Arm] Blood Pressure Mean 95 93 91 Blood Pressure Mean [Right Arm] Blood Pressure Source [Right Arm] Blood Pressure Position [Right Arm] 02 Sat by Pulse Oximetry 97 99 Oxygen Delivery Method BiPAP BiPAP Oxygen Flow Rate (LPM) 05/01/23 13:30 Temperature Temperature Source Pulse Rate 98 H Pulse Rate [Apical] Respiratory Rate 18 Blood Pressure 137/78 Blood Pressure [Right Arm] Blood Pressure Mean 86 Blood Pressure Mean [Right Arm] Blood Pressure Source [Right Arm] Blood Pressure Position [Right Arm] 02 Sat by Pulse Oximetry 98 Oxygen Delivery Method BiPAP Oxygen Flow Rate (LPM) Lab Data Lab Results 05/01/23 07:00: WBC 11.9 H, RBC 4.10 L, Hgb 14.0 L, Hct 43.5, MCV 106.2 H, MCH 34.0 H, MCHC 32.1, RDW 14.8, Plt Count 317, MPV 7.9, Neut % (Auto) 73.5, Lymph % (Auto) 17.6, [place] % (Auto) 5.3, Eos % (Auto) 2.6, Baso % (Auto) 0.9, Neut # (Auto) 8.8 H, Lymph # (Auto) 2.1, [place] # (Auto) 0.6, Eos # (Auto) 0.3, Baso # (Auto) 0.1, Sodium 141, Potassium 4.3, Chloride 100, Carbon Dioxide 33 H, Anion Gap 12.3, BUN 14, Creatinine 1.30 H, Estimated GFR 56 L, Est GFR ( Amer) 67, Glucose 122 H, Calcium 9.5, Total Bilirubin 0.6, AST 36, ALT 27, Alkaline Phosphatase 111, Troponin I < 0.01, NT-Pro-B Natriuret Pep < 20.0, Total Protein 9.3 H D, Albumin 4.8, Globulin 4.5 H, Albumin/Globulin Ratio 1.1 05/01/23 07:47: VBG pH 7.28 L, VBG pCO2 64.1 H, VBG pO2 41.8 H, VBG HCO3 29.2, V BG Total CO2 31.1 H, VBG O2 Saturation 70.5 H, VBG Base Excess 2.4 H, VBG Lactic Acid 2.1 H 05/01/23 09:02: VBG pH 7.31, VBG pCO2 58.0 H, VBG pO2 42.5 H, VBG HCO3 28.7, VBG Total CO2 30.5 H, VBG O2 Saturation 73.5 H, VBG Base Excess 2.5 H, VBG Lactic Acid 2.1 H 05/01/23 09:34: Troponin I < 0.01 05/01/23 12:11: Lactate 2.0 05/01/23 12:35: VBG pH 7.39, VBG pCO2 44.0, VBG pO2 79.6 H, VBG HCO3 25.9, VBG Total CO2 27.3 H, VBG O2 Saturation 96.1 H, VBG Base Excess 0.9, VBG Lactic Acid 2.8 H 05/01/23 12:45: Troponin I < 0.01 05/01/23 07:00 05/01/23 07:00 Orders (Tests/Meds): ED MEDICATIONS Generic Name Dose Route Start Last Admin Trade Name [place] PRN Reason Stop Dose Admin Acetaminophen 650 mg 05/01/23 14:58 Acetaminophen 325mg Tab PO 05/31/23 14:57 Q4HP PRN Fever or Mild Pain (1-3) Heparin Sodium (Porcine) 5,000 unit 05/01/23 15:00 05/01/23 15:39 Heparin Sodium 5,000 Unit/Ml Vial SQ 05/31/23 14:59 5,000 unit Q8H ANSON Administration Lactated Ringer's 1,000 mls @ 100 mls/hr 05/01/23 11:30 05/01/23 15:39 Lactated Ringer's 1000 Ml Bag IV 05/31/23 11:29 100 mls/hr .Q10H ANSON Administration Ondansetron HCl 4 mg 05/01/23 14:58 Ondansetron 4mg/2ml Vial IV 05/31/23 14:57 Q8HP PRN Nausea Discontinued Medications Generic Name Dose Route Start Last Admin Trade Name Freq PRN Reason Stop Dose Admin Albuterol/Ipratropium 6 ml 05/01/23 07:01 05/01/23 07:52 Ipratropium/Albuterol 3 Ml Neb 05/01/23 07:02 6 ml ONCE ONE Administration Albuterol/Ipratropium 6 ml 05/01/23 10:02 05/01/23 10:33 Ipratropium/Albuterol 3 Ml Neb 05/01/23 10:03 6 ml ONCE ONE Administration Lactated Ringer's 500 mls @ 250 mls/hr 05/01/23 07:51 05/01/23 07:56 Lactated Ringer's 500ml IV 05/01/23 09:50 250 mls/hr .Q2H ONE Administration Magnesium Sulfate 2 gm in 50 mls @ 50 mls/hr 05/01/23 10:02 05/01/23 11:49 Magnesium Sulfate 2gm/50ml Premix IV 05/01/23 11:01 50 mls/hr ONCE ONE Administration Lactated Ringer's 500 mls @ 999 mls/hr 05/01/23 10:04 05/01/23 11:49 Lactated Ringer's 500ml IV 05/01/23 10:34 999 mls/hr .Q31M ONE Administration Ceftriaxone Sodium 2 gm/ 100 mls @ 200 mls/hr 05/01/23 13:16 05/01/23 13:28 Sodium Chloride IV 05/01/23 13:45 200 mls/hr ONCE ONE Administration Methylprednisolone Sodium Succinate 125 mg 05/01/23 07:01 05/01/23 07:52 Methylprednisolone Sod Succ 125mg Vial IV 05/01/23 07:02 125 mg ONCE ONE Administration ORDERS Category Date Time Status CXR --portable [XR chest portable] Stat Exams 05/01/23 07:01 Completed Brain Natriuretic Peptide Stat Lab 05/01/23 07:00 Completed CBC w/Auto Diff [Complete Blood Count Auto Diff] Stat Lab 05/01/23 07:00 Completed CMP [Comprehensive Metabolic Panel] Stat Lab 05/01/23 07:00 Completed Lactate Venous Routine Lab 05/01/23 09:52 Received Lactic Acid Follow Up (RFLX 1) Stat Lab 05/01/23 12:11 Completed Trop I [Troponin I] Stat Lab 05/01/23 07:00 Completed Troponin I Q3H Lab 05/01/23 09:34 Completed Troponin I Q3H Lab 05/01/23 12:45 Completed Blood Culture Stat Micro 05/01/23 08:06 Received VBG [Venous Blood Gas] Stat RT 05/01/23 07:47 Completed VBG [Venous Blood Gas] Stat RT 05/01/23 09:02 Completed Venous Blood Gas Routine RT 05/01/23 12:35 Completed HEART Score History (anamnesis): Slightly suspicious ECG: Normal Age: 45-65 years Risk factors: 3 or more risk factors Troponin: </= normal limit HEART Score: 3 Medical Decision Narrative: 62-year-old male history of cerebral palsy, COPD on 2 L nasal cannula at home, CHF, CKD, anxiety, schizoaffective disorder, chronic intolerance and noncompliance to BiPAP at night presenting with lethargy and decreased level of consciousness. Patient was at breakfast this morning, 04/30 and was falling asleep. Staff states that they were unable to wake him up, so they called EMS. On EMS arrival, patient was arousable, alert, answering questions, had no complaints. Was still brought to the emergency department for further evaluation. Patient denies chest pain, shortness of breath, nausea, vomiting, diaphoresis, cough, diarrhea, abdominal pain, chest pain, and any further concerns at this time. States that he did not wear his mask last night. On 2 L nasal cannula which she wears at home. To be noted the patient has COPD and supposed to be on nightly BiPAP, which is likely complicating care given his noncompliance. History was obtained via conversation with patient, EMS, outside hospital chart review. On arrival, patient hemodynamically stable, alert, oriented x4, appropriate, GCS 15, moving all extremities spontaneously, pupils equal and reactive to light. Full physical exam performed and significant for chronically ill-appearing male in no acute distress. Has dry mucous membranes. Nontachycardic, mildly hypertensive. Saturating 94% on 2 L nasal cannula. Lungs with bilateral wheezing, decreased breath sounds on the left side without obvious rales or rhonchi. Abdomen is soft, nontender, nondistended. Cardiac exam without focal abnormal findings. Differential includes COPD exacerbation, CO2 narcosis, hypoxemia, ACS, [place], pneumonia, pneumothorax, bronchitis, medication noncompliance, sleep deprivation, among others. Patient was given DuoNeb, Solu-Medrol, BiPAP for symptomatic management and correction of underlying abnormalities. Workup independently interpreted and significant for Patient has mild leukocytosis 11.9 without neutrophilic shift. Nonactionable chemistry other than mildly elevated creatinine 1.3. Troponin negative. VBG mildly respiratory acidosis 7.28, CO2 elevated at 64.1, appropriately oxygenating 42. Bicarb normal. Patient's lactate is mildly elevated at 2.1. Lactate likely secondary to patient's dehydration. Chest x- ray without acute cardiopulmonary or airspace disease. See radiology read for full review of final results. Independent interpretation of EKG shows sinus rhythm 75 beats a minute no ST or T wave changes concerning for acute ischemia, IL, QRS, QT intervals within normal limits. [place] normal. Heart score 3. On reevaluation, patient still resting comfortably in bed. Repeat VBG improved with pH 7.3, CO2 58, bicarb 28, lactate remains 2.1, fluids were given. 2 more DuoNebs administered. Patient was observed on BiPAP for another hour and a half. Repeat VBG at newly worsening in terms of lactic acid. pH improved 7.39, CO2 improved 44, oxygen remains appropriate, but lactic acid increased to 2.8. Given patient presentation, workup, history, this most likely represents COPD exacerbation. Hospital medicine was contacted and case was discussed at length. Patient was given ceftriaxone. Because patient high risk for clinical decompensation, deemed appropriate for inpatient admission. Results were relayed to patient who voiced understanding and patient was agreeable to inpatient admission and management. Patient was admitted to the hospital for further definitive management. Critical Care Critical Care Time Critical Care Time: Yes (respiratory) Attestation: On 05/01/23, the high probability of a clinically significant, sudden or life threatening deterioration of the following system(s) required my full and direct attention, intervention and personal management. The time I documented below is in addition to time spent performing reported procedures but includes the following listed in this critical care notation. Total Time Total Critical Care Time: 60
[2023-05-01 07:25] LABS: Basophils # 0.1 K/mm3 (0-0.2); Basophils % 0.9 % (0.1-2.0); Eosinophils # 0.3 K/mm3 (0.0-0.4); Eosinophils % 2.6 % (0.1-12.0); Hematocrit 43.5 % (42.0-52.0); Lymphocytes # 2.1 K/mm3 (0.7-4.5); Lymphocytes % 17.6 % (10-50); Mean Corpuscular HGB Conc 32.1 g/dL (31.8-35.4); Mean Corpuscular Volume 106.2 fl (80-94); Mean Platelet Volume 7.9 fl (7.4-10.4); Monocytes # 0.6 K/mm3 (0.1-1.0); Monocytes % 5.3 % (1.7-9.3); Neutrophils # 8.8 K/mm3 (1.8-7.8); Neutrophils % 73.5 % (37.0-80.0); Platelet Count 317 K/mm3 (142-424); Red Cell Distribution Width 14.8 % (11.5-17.5); White Blood Count 11.9 K/mm3 (4.8-10.8)
[2023-05-01 07:33] LABS: Alanine Aminotransferase 27 U/L (12-78); Albumin Level 4.8 g/dl (3.5-5.0); Albumin/Globulin Ratio 1.1 (1.1-1.8); Alkaline Phosphatase 111 U/L (38-126); Anion Gap 12.3 mEq/L (5-15); Aspartate Amino Transferase 36 U/L (17-59); Bilirubin,Total 0.6 mg/dl (0.2-1.3); Blood Urea Nitrogen 14 mg/dl (9-20); Calcium 9.5 mg/dl (8.4-10.2); Carbon Dioxide 33 mmol/L (22.0-30.0); Chloride 100 mmol/L (98-107); Estimated Glomerular Filt Rate 56 ml/min (>60); GFR (African American) 67 ML/MIN (>60); Globulin 4.5 g/dL (1.3-3.2); Glucose 122 mg/dl (74-100); Potassium 4.3 mmoL/L (3.5-5.1); Sodium 141 mmol/L (136-145); Total Protein,Serum 9.3 g/dl (6.3-8.2)
[2023-05-01 07:50] LABS: Troponin I < 0.01 ng/ml (0.00-0.034)
[2023-05-01] MEDS: IPRATROPIUM/ALBUTEROL 3 ML NEB 6 ML IH ×2 (07:52→10:33)
[2023-05-01] MEDS: METHYLPREDNISOLONE SOD SUCC 125MG VIAL 125 MG IV (07:52)
[2023-05-01 07:56] LABS: VBG Base Excess 2.4 mmol/L (-2.4-2.3); VBG HCO3 29.2 mmol/L (23-30); VBG Oxygen Saturation 70.5 % (50-70); VBG PCO2 64.1 mmol/L (35-51); VBG PH 7.28 mmol/L (7.31-7.41); VBG PO2 41.8 mmol/L (28-40); VBG Total CO2 31.1 mmol/L (23-27)
[2023-05-01] MEDS: RINGERS SOLUTION,LACTATED 500 ML 250 ML IV (07:56)
[2023-05-01 08:00] LABS: Lactate Venous 2.1 mmol/L (0.4-2.0)
--- NOTE | 2023-05-01 08:07 | PC.NURSE ---
Respiratory notified of VBG with lactate
--- NOTE | 2023-05-01 08:09 | PC.NURSE ---
called RT for bipap
[2023-05-01 09:03] LABS: NT Pro Brain Natriuretic Pep. < 20.0 pg/mL (0-125)
--- NOTE | 2023-05-01 09:16 | ECG_ITS ---
APPROVED REPORT Exam: Resting ECG HR:75 bpm ECG Measurements Heart Rate 75 AXES [place] 178 P 36 QRSd 97 QRS 72 QT 351 T 61 QTc 379 Conclusion SINUS RHYTHM NORMAL ECG Electronically signed by : KAITLIN PERALES, 05/02/2023 03:29:17
[2023-05-01 09:54] LABS: Lactate Venous 2.1 mmol/L (0.4-2.0); VBG Base Excess 2.5 mmol/L (-2.4-2.3); VBG HCO3 28.7 mmol/L (23-30); VBG Oxygen Saturation 73.5 % (50-70); VBG PH 7.31 mmol/L (7.31-7.41); VBG PO2 42.5 mmol/L (28-40); VBG Total CO2 30.5 mmol/L (23-27)
[2023-05-01 11:08] LABS: Troponin I < 0.01 ng/ml (0.00-0.034)
[2023-05-01] MEDS: MAGNESIUM SULFATE IN WATER 2 GM/50 ML PIGGYBACK IV (11:49)
[2023-05-01] MEDS: RINGERS SOLUTION,LACTATED 500 ML 999 ML IV (11:49)
[2023-05-01 12:00] LABS: Reflex Lactic Add Lactic Reflex
[2023-05-01 12:41] LABS: VBG Base Excess 0.9 mmol/L (-2.4-2.3); VBG HCO3 25.9 mmol/L (23-30); VBG Oxygen Saturation 96.1 % (50-70); VBG PH 7.39 mmol/L (7.31-7.41); VBG PO2 79.6 mmol/L (28-40); VBG Total CO2 27.3 mmol/L (23-27)
[2023-05-01 12:43] LABS: Lactate Venous 2.8 mmol/L (0.4-2.0)
[2023-05-01 13:27] LABS: Troponin I < 0.01 ng/ml (0.00-0.034)
[2023-05-01] MEDS: CEFTRIAXONE SODIUM 2 GM in 0.9 % SODIUM CHLORIDE 100 ML IV (13:28)
--- NOTE | 2023-05-01 14:09 | PC.NURSE ---
MANAGER CIVIL NOTIFIED OF ADMISSION
--- NOTE | 2023-05-01 14:28 | PC.NURSE ---
Gave report to Concepción GALVIN in [facility]U. Pt assigned to room 263
--- NOTE | 2023-05-01 15:15 | P.CONPHA_ITS ---
Pharmacy Intervention Comments: MEDICATION RECONCILIATION COMPLETE USING MAR FROM [facility].
--- NOTE | 2023-05-01 15:15 | HMH.PHAINT1 ---
Pharmacy Intervention Comments: MEDICATION RECONCILIATION COMPLETE USING MAR FROM [facility].
--- NOTE | 2023-05-01 15:38 | SW/DCPLANNER ---
Addendum entered by Aleja Dave RN 05/02/23 14:27: Patient discharging back to [place] today, Alena notified. Original Note: This patient currently resides at [facility] level of care. I will continue to follow up w/ Alena at [facility] until patient is medically stable for discharge. Discharge date is unknown at this time.
[2023-05-01] MEDS: HEPARIN SODIUM 5,000 UNIT/ML VIAL 5000 UNIT SQ ×2 (15:39→23:02)
[2023-05-01] MEDS: LACTATED RINGERS 1000ML 1,000 ML 100 ML IV (15:39)
[2023-05-01 18:29] LABS: POC Glucose,Bedside 222 (70-110)
--- NOTE | 2023-05-01 18:48 | EXP.HP ---
History of Present Illness *Admission Date: 05/01/23 *Reason for visit:: SOB *History of present illness: Patient is a 62-year-old male with past medical history of COPD on 2 L nasal cannula, CKD, anxiety, CHF, cerebral palsy who presents to the hospital due to lethargy and decreased level of consciousness. Patient was also reportedly found to have hypoxia and hypercarbia and was started on BiPAP. Patient was also noted to have elevated creatinine. [facility] Disclaimer: The information contained in this section may have been updated after the patient was seen, as this information can be updated by other users. Medical History Acute respiratory failure with hypoxia and hypercarbia Anemia Anxiety Arthritis of sternoclavicular joint Aspiration into airway BPH (benign prostatic hyperplasia) Breathing-related sleep disorder Bronchomalacia CAD (coronary artery disease) CAD (coronary atherosclerotic disease) [place]eli[place] artery stenosis Chronic heart failure with preserved ejection fraction (HFpEF) Chronic subdural hematoma Chronic subdural hematoma COPD (chronic obstructive pulmonary disease) Coronary arteriosclerosis in [place] artery Depression Dyspnea on exertion Edema Extreme obesity GERD (gastroesophageal reflux disease) Heart failure, NYHA class 2 HHD (hypertensive heart disease) HLD (hyperlipidemia) Hypertension with goal to be determined Hypertensive heart disease without heart failure Hypothyroid Hypothyroidism, unspecified Impingement syndrome of both shoulders Intolerance to BiPAP/CPAP Obesity Obesity, Class II, BMI 35-39.9, isolated (see actual BMI) Osteopenia Other hyperlipidemia Pain in left wrist Post-traumatic subdural hematoma Pulmonary emphysema Renal insufficiency Renal insufficiency Renal lesion Right lower lobe pneumonia Seizure SOB (shortness of breath) Soft tissue disorder, unspecified Subdural hematoma Subdural hematoma due to concussion Synovial plica syndrome of left knee Type 2 diabetes mellitus with pressure callus Surgical History H/O cardiac catheterization H/O heart artery stent History of arthroscopy of shoulder History of carpal tunnel release Family History Other Cancer Diabetes Social History Smoking Status: Unknown if ever smoked alcohol intake: never substance use type: denies use current occupational status: disabled Travel in the last 8 weeks: None caregiver/support person: Yes household members: caregiver housing: [facility] caffeine: No Review of Systems Review of Systems Review of systems:: unable to obtain Meds Home Medications and Allergies Home Medications Medication Instructions Recorded Confirmed Type atorvastatin 40 mg tablet (Lipitor) 40 mg PO HS Cholesterol 03/24/17 05/01/23 History isosorbide mononitrate 30 mg 30 mg PO DAILY Chest Pain 04/11/17 05/01/23 History tablet,extended release 24 hr magnesium oxide 400 mg PO HS Supplement 09/30/17 05/01/23 History acetaminophen 500 mg tablet 500 mg PO Q4HP PRN Fever Or Pain 11/10/17 05/01/23 History omeprazole 20 mg capsule,delayed 20 mg PO Q48H Acid Reflux 11/10/17 05/01/23 History release levothyroxine 50 mcg tablet 50 mcg PO DAILYDM THYROID 11/11/17 05/01/23 History losartan 25 mg tablet (Cozaar) 25 mg PO DAILY High Blood Pressure 09/29/18 05/01/23 History aspirin 81 mg chewable tablet 81 mg PO DAILY Heart Disease 01/25/19 05/01/23 History loperamide 2 mg capsule 2 mg PO Q4HP PRN Diarrhea 01/25/19 05/01/23 History trazodone 100 mg tablet 100 mg PO HS Insomnia 02/24/20 05/01/23 History tamsulosin 0.4 mg capsule (Flomax) 0.4 mg PO DAILY URINARY SYMPTOMS 04/24/20 05/01/23 History metformin 500 mg tablet 500 mg PO BIDWMEAL Diabetes 10/30/20 05/01/23 History docusate calcium 240 mg capsule 240 mg PO DAILYP PRN Constipation 02/09/21 05/01/23 History lactulose 10 gram/15 mL oral 30 ml PO DAILYP PRN Constipation 02/09/21 05/01/23 History solution duloxetine 60 mg capsule,delayed 60 mg PO DAILY MOOD 10/17/21 05/01/23 History release linagliptin 5 mg tablet (Tradjenta) 5 mg PO DAILY Diabetes 10/17/21 05/01/23 History tiotropium bromide 1.25 2 puff inhalation DAILY Copd 10/17/21 05/01/23 History mcg/actuation mist for inhalation (Spiriva Respimat) aluminum hydrox-magnesium carb 95 30 ml PO Q4HP PRN Acid Reflux 11/21/22 05/01/23 History mg-358 mg/15 mL oral suspension (Acid Gone Antacid) bisacodyl 5 mg tablet 10 mg PO DAILYP PRN Constipation 11/21/22 05/01/23 History duloxetine 30 mg capsule,delayed 30 mg PO DAILY MOOD 11/21/22 05/01/23 History release polyethylene glycol 3350 17 gram 17 g PO DAILY Constipation 11/21/22 05/01/23 History oral powder packet cariprazine 3 mg capsule (Vraylar) 3 mg PO DAILY MOOD 01/08/23 05/01/23 History cyanocobalamin (vitamin B-12) 250 750 mcg PO DAILY Supplement 01/08/23 05/01/23 History mcg tablet (Vitamin B-12) sennosides 8.6 mg-docusate sodium 2 tab PO BID Constipation 01/08/23 05/01/23 History 50 mg tablet (Senexon-S) bisacodyl 10 mg rectal suppository 10 mg SD DAILYP PRN Constipation 01/28/23 05/01/23 History insulin glargine 100 unit/mL (3 15 unit SQ HS Diabetes 01/29/23 05/01/23 History mL) subcutaneous pen (Lantus Solostar U-100 Insulin) insulin lispro protamine-lispro 17 unit SQ BID Diabetes 01/29/23 05/01/23 History 100 unit/mL (75-25) subcutaneous pen (Humalog Mix 75-25 KwikPen) albuterol sulfate 90 mcg/actuation 2 inh inhalation QIDP PRN 03/10/23 05/01/23 History aerosol inhaler Shortness Of Breath Or Wheezing folic acid 800 mcg tablet 800 mcg PO DAILY Supplement 03/10/23 05/01/23 History guaifenesin 100 mg/5 mL oral 200 mg PO Q4HP PRN Cough 03/10/23 05/01/23 History liquid (Diabetic Tussin EX) multivitamin with folic acid 400 1 tab PO DAILY Supplement 03/10/23 05/01/23 History mcg tablet (Tab-A-Laron) furosemide 40 mg tablet (Lasix) 40 mg PO DAILY Fluid 05/01/23 05/01/23 History gabapentin 400 mg capsule 400 mg PO TID NERVE PAIN 05/01/23 05/01/23 History levetiracetam 1,000 mg tablet 1,000 mg PO BID SEIZURES 05/01/23 05/01/23 History (Keppra) spironolactone 50 mg tablet 50 mg PO DAILY Fluid 05/01/23 05/01/23 History tramadol 100 mg tablet 100 mg PO QID MODERATE TO SEVERE 05/01/23 05/01/23 History PAIN New Prescriptions to Start Prescriptions: Allergies Allergy/AdvReac Type Severity Reaction Status Date / Time morphine [MORPHINE] Allergy Mild HURTS Verified 03/27/23 13:11 STOMACH nitroglycerin AdvReac Mild Nausea Verified 03/27/23 13:11 Exam Data for Last 24 hours Vital signs and Labs for Last 24 Hours: Temp Pulse Resp BP Pulse Ox O2 Del Method O2 Flow Rate 98.3 F 91 H 22 141/89 H 97 BiPAP 2 05/01/23 16:00 05/01/23 18:00 05/01/23 18:00 05/01/23 18:00 05/01/23 18:00 05/01/23 18:33 05/01/23 08:01 FiO2 30 05/01/23 14:43 Laboratory Results - last 24 hr 05/01/23 07:00: WBC 11.9 H, RBC 4.10 L, Hgb 14.0 L, Hct 43.5, MCV 106.2 H, MCH 34.0 H, MCHC 32.1, RDW 14.8, Plt Count 317, MPV 7.9, Neut % (Auto) 73.5, Lymph % (Auto) 17.6, [place] % (Auto) 5.3, Eos % (Auto) 2.6, Baso % (Auto) 0.9, Neut # (Auto) 8.8 H, Lymph # (Auto) 2.1, [place] # (Auto) 0.6, Eos # (Auto) 0.3, Baso # (Auto) 0.1, Sodium 141, Potassium 4.3, Chloride 100, Carbon Dioxide 33 H, Anion Gap 12.3, BUN 14, Creatinine 1.30 H, Estimated GFR 56 L, Est GFR ( Amer) 67, Glucose 122 H, Calcium 9.5, Total Bilirubin 0.6, AST 36, ALT 27, Alkaline Phosphatase 111, Troponin I < 0.01, NT-Pro-B Natriuret Pep < 20.0, Total Protein 9.3 H D, Albumin 4.8, Globulin 4.5 H, Albumin/Globulin Ratio 1.1 05/01/23 07:47: VBG pH 7.28 L, VBG pCO2 64.1 H, VBG pO2 41.8 H, VBG HCO3 29.2, VBG Total CO2 31.1 H, VBG O2 Saturation 70.5 H, VBG Base Excess 2.4 H, VBG Lactic Acid 2.1 H 05/01/23 09:02: VBG pH 7.31, VBG pCO2 58.0 H, VBG pO2 42.5 H, VBG HCO3 28.7, VBG Total CO2 30.5 H, VBG O2 Saturation 73.5 H, VBG Base Excess 2.5 H, VBG Lactic Acid 2.1 H 05/01/23 09:34: Troponin I < 0.01 05/01/23 12:11: Lactate 2.0 05/01/23 12:35: VBG pH 7.39, VBG pCO2 44.0, VBG pO2 79.6 H, VBG HCO3 25.9, VBG Total CO2 27.3 H, VBG O2 Saturation 96.1 H, VBG Base Excess 0.9, VBG Lactic Acid 2.8 H 05/01/23 12:45: Troponin I < 0.01 05/01/23 16:28: POC Glucose 222 H I & O for Last 24 hours: Intake & Output 04/28/23 04/29/23 04/30/23 05/01/23 23:59 23:59 23:59 23:59 Output Total 0 / 0 Balance 0 / 0 Weight 86.693 kg Constitutional Constitutional: moderate distress Comments: on BIPAP *Routine HEENT Exam Head: Present normocephalic Eye: Present EOMI and PERRL ENT: Present mucous membranes moist *Routine Neck Exam Neck: Present supple; Absent lymphadenopathy *Routine Respiratory Exam Respiratory: Present prolonged expiratory phase, respiratory distress, distant breath sounds and diminished air movement *Routine Cardiovascular Exam Cardiovascular: Present RRR *Routine Abdominal Exam Abdominal: Present soft and normoactive bowel sounds; Absent tenderness *Routine Rectal Exam Rectal:: deferred *Routine Genitalia Exam Genitalia:: deferred *Routine Extremities Exam Extremities: Absent cyanosis, clubbing or edema *Routine Skin Exam Skin: Present warm; Absent rash *Routine Neurological Exam Neurological: Present alert and oriented X3 Assessment and Plan *Assessment and plan (1) Acute respiratory failure with hypoxia and hypercarbia: Status: Acute Category: Medical Code(s): J96.01 - Acute respiratory failure with hypoxia; J96.02 - Acute respiratory failure with hypercapnia (2) COPD exacerbation: Status: Acute Category: Medical Code(s): J44.1 - Chronic obstructive pulmonary disease with (acute) exacerbation (3) Hypothyroid: Status: Acute Category: Medical Code(s): E03.9 - Hypothyroidism, unspecified (4) GERD (gastroesophageal reflux disease): Status: Acute Category: Medical Code(s): K21.9 - Gastro-esophageal reflux disease without esophagitis (5) CAD (coronary artery disease): Status: Acute Qualifiers: Coronary Disease-Associated Artery/Lesion type: [place] artery [place] vs. transplanted heart: [place] heart Associated angina: with other forms of angina Qualified Code(s): I25.118 - Atherosclerotic heart disease of [place] coronary artery with other forms of angina pectoris Category: Medical Code(s): I25.10 - Atherosclerotic heart disease of [place] coronary artery without angina pectoris (6) HTN (hypertension): Status: Chronic Qualifiers: Hypertension type: primary hypertension Qualified Code(s): I10 - Essential (primary) hypertension Category: Medical Code(s): I10 - Essential (primary) hypertension Plan Patient is a 62-year-old male with past medical history of COPD on 2 L nasal cannula, CKD, anxiety, CHF, cerebral palsy who presents to the hospital due to lethargy and decreased level of consciousness. Patient was also reportedly found to have hypoxia and hypercarbia and was started on BiPAP. Patient was also noted to have elevated creatinine. Assessment and plan Acute hypoxic hypercapnic respiratory failure satting less than 90% on room air Lethargy, acute encephalopathy likely secondary to hypercapnia COPD exacerbation Started on BiPAP Monitor blood gases Consult pulmonary-appreciate recommendations Start DuoNebs Steroids Start IV Levaquin Chest x-ray reviewed negative for acute cardiopulmonary process CT head performed-negative for acute neurologic process Acute kidney injury Avoid nephrotoxic medications, monitor creatinine, monitor BMP Diabetes mellitus Insulin sliding scale DVT prophylaxis-heparin
[2023-05-01] MEDS: IPRATROPIUM/ALBUTEROL 3 ML NEB IH ×2 (19:41→22:13)
[2023-05-01] MEDS: LEVOFLOXACIN/D5W 500 MG/100 ML PIGGYBACK 100 MG IV (20:17)
[2023-05-01] MEDS: METHYLPREDNISOLONE SOD SUCC 40MG VIAL 40 MG IV (20:18)
[2023-05-01] MEDS: SENNOSIDES 8.6MG/DOCUSATE 50MG TABLET 2 TAB PO (21:04)
[2023-05-01] MEDS: GABAPENTIN 400MG CAPSULE 400 MG PO (21:05)
[2023-05-01] MEDS: INSULIN GLARGINE 100 UNITS/ML 3ML FLEXPEN 15 UNIT SQ (21:05)
[2023-05-01] MEDS: ATORVASTATIN 40MG TABLET 40 MG PO (21:07)
[2023-05-01] MEDS: LEVETIRACETAM 1000 MG 1000 EACH PO (21:07)
[2023-05-01] MEDS: MAGNESIUM OXIDE 400 MG 400 EACH PO (21:08)
[2023-05-01] MEDS: TRAMADOL 100 MG 100 EACH PO (21:08)
[2023-05-01] MEDS: TRAZODONE 100 MG 100 EACH PO (21:09)
[2023-05-02] VITALS (15 sets, daily range): BP systolic 97–160; BP diastolic 54–95; PULSE 65–114; RESP 17–22; TEMP 36.6–37.2; O2SAT 94–99
[2023-05-02] MEDS: IPRATROPIUM/ALBUTEROL 3 ML NEB IH ×3 (01:32→09:40)
[2023-05-02] MEDS: METHYLPREDNISOLONE SOD SUCC 40MG VIAL 40 MG IV (03:03)
--- NOTE | 2023-05-02 05:05 | PC.NURSE ---
Patient has rested most of the shift. In shift report RN was told that patient was incontinent but did void, Patient had not voided this shift. At 2am patient was bladder scanned and found to have over 400ml in the bladder. Provider was notified and stated to achor gi akers and also stopped the patient fluids. Patient tolerated that well and a UA was sent per protocol. Patient has tolerated the bipap well through the shift and has not had any other issues.
[2023-05-02] MEDS: HEPARIN SODIUM 5,000 UNIT/ML VIAL 5000 UNIT SQ ×3 (06:03→22:15)
[2023-05-02] MEDS: LEVOTHYROXINE 50MCG (0.05MG) TAB 50 MCG PO (06:03)
[2023-05-02] MEDS: humaLOG 100 UNITS/ML 3ML VIAL (SSI) SQ ×3 (06:06→20:33)
[2023-05-02 06:57] LABS: POC Glucose,Bedside 159 (70-110)
[2023-05-02 07:32] LABS: Anion Gap 11.4 mEq/L (5-15); Blood Urea Nitrogen 19 mg/dl (9-20); Calcium 8.8 mg/dl (8.4-10.2); Carbon Dioxide 28 mmol/L (22.0-30.0); Chloride 103 mmol/L (98-107); Creatinine Clearance Estimated 92 mL/min (50-200); Estimated Glomerular Filt Rate 75 ml/min (>60); GFR (African American) 91 ML/MIN (>60); Glucose 193 mg/dl (74-100); Potassium 4.4 mmoL/L (3.5-5.1); Sodium 138 mmol/L (136-145)
[2023-05-02 07:44] LABS: Basophils % 0.1 % (0.1-2.0); Eosinophils % 0.1 % (0.1-12.0); Lymphocytes # 0.9 K/mm3 (0.7-4.5); Lymphocytes % 6.3 % (10-50); Mean Corpuscular Hemoglobin 33.4 pg (27.0-31.2); Mean Corpuscular Volume 107.9 fl (80-94); Mean Platelet Volume 8.4 fl (7.4-10.4); Monocytes # 0.4 K/mm3 (0.1-1.0); Monocytes % 2.5 % (1.7-9.3); Neutrophils # 12.7 K/mm3 (1.8-7.8); Platelet Count 286 K/mm3 (142-424); Red Blood Count 3.34 M/mm3 (4.60-6.20); Red Cell Distribution Width 14.8 % (11.5-17.5)
[2023-05-02 07:49] LABS: MANUAL DIFFERENTIAL MANUAL DIFFERENTIAL (MANUAL DIFF)
[2023-05-02 07:58] LABS: Hemoglobin 11.2 g/dL (14.1-18.0)
[2023-05-02 08:17] LABS: Lymphocytes % 2 % (10-50); Macrocytosis 1+; Monocytes % 2 % (2-9); Neutrophils % 96 % (42-76); Platelet Estimate Normal; RBC Morphology Normal; Total Cells Counted 100
[2023-05-02 08:29] LABS: Microscopic,Cath URINE MICROSCOPIC (MICROSCOPIC)
[2023-05-02] MEDS: DULOXETINE 30MG CAPSULE.DR 30 MG PO (08:47)
[2023-05-02] MEDS: SENNOSIDES 8.6MG/DOCUSATE 50MG TABLET 2 TAB PO ×2 (08:47→20:32)
[2023-05-02] MEDS: TAMSULOSIN 0.4MG CAPSULE 0.400000000000000022 MG PO (08:47)
[2023-05-02] MEDS: levETIRAcetam 500 MG TABLET 1000 MG PO ×2 (08:48→20:31)
[2023-05-02] MEDS: METFORMIN 500MG TABLET 500 MG PO ×2 (08:48→17:20)
[2023-05-02] MEDS: ASPIRIN 81MG CHEWABLE TABLET 81 MG PO (08:48)
[2023-05-02] MEDS: SPIRONOLACTONE 25MG TABLET 50 MG PO (08:48)
[2023-05-02] MEDS: IRBESARTAN 75MG TABLET 37.5 MG PO (08:48)
[2023-05-02] MEDS: LOPERAMIDE 2MG CAPSULE 2 MG PO (08:48)
[2023-05-02] MEDS: GABAPENTIN 400MG CAPSULE 400 MG PO ×3 (08:49→20:31)
[2023-05-02] MEDS: ISOSORBIDE MONO 30MG TAB.ER.24H 30 MG PO (08:49)
[2023-05-02] MEDS: DULOXETINE 30MG CAPSULE.DR 60 MG PO (08:50)
[2023-05-02] MEDS: POLYETHYLENE GLYCOL 3350 17 GM PACKET PO (08:50)
[2023-05-02 09:06] LABS: Appearance,Urine/Cath CLEAR (Clear); Bilirubin,Cath Negative (Negative); Blood, Urine/Cath Negative (Negative); Color,Urine/Cath YELLOW (Yellow); Glucose,Urine/Cath (UA) Negative (Negative); Ketones,Urine/Cath Negative (Negative); Leukocyte Esterase,Cath Negative (Negative); Nitrate,Cath Negative (Negative); Protein,Urine/Cath Negative (Negative); Urobilinogen,Cath 0.2 EU/dl (0.2)
--- NOTE | 2023-05-02 09:53 | EXP.PULM.CON ---
History of Present Illness History of present illness: Mr. Blakely is a 62-year-old male with no significant smoking history, history of diastolic heart failure peripheral vascular disease CAD sleep apnea with AHI 101 previously with multiple admissions for being noncompliant with BiPAP therapy presented with hypercarbic respiratory failure presented to the ER with altered mentation , pulmonary was called for further evaluation and management today. [facility] Disclaimer: The information contained in this section may have been updated after the patient was seen, as this information can be updated by other users. Medical History (Updated 05/02/23 @ 13:02 by Salome Shah MD) RAJAN (obstructive sleep apnea) BPH (benign prostatic hyperplasia) COPD (chronic obstructive pulmonary disease) Acute respiratory failure with hypoxia and hypercarbia Depression Anxiety Hypothyroid GERD (gastroesophageal reflux disease) Seizure Right lower lobe pneumonia Aspiration into airway Bronchomalacia CAD (coronary atherosclerotic disease) Pulmonary emphysema Dyspnea on exertion Breathing-related sleep disorder Renal insufficiency Chronic subdural hematoma Intolerance to BiPAP/CPAP Edema Renal lesion Celiac artery stenosis Chronic heart failure with preserved ejection fraction (HFpEF) Hypertensive heart disease without heart failure Hypertension with goal to be determined Heart failure, NYHA class 2 Extreme obesity Type 2 diabetes mellitus with pressure callus 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 Other hyperlipidemia Obesity, Class II, BMI 35-39.9, isolated (see actual BMI) Impingement syndrome of both shoulders Coronary arteriosclerosis in [place] artery 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 Osteopenia Renal insufficiency Obesity Anemia SOB (shortness of breath) HLD (hyperlipidemia) HHD (hypertensive heart disease) CAD (coronary artery disease) Subdural hematoma due to concussion Subdural hematoma Hypothyroidism, unspecified Pain in left wrist Soft tissue disorder, unspecified Surgical History H/O heart artery stent H/O cardiac catheterization History of carpal tunnel release History of arthroscopy of shoulder Family History Other Cancer Diabetes Social History Smoking Status: Unknown if ever smoked alcohol intake: never substance use type: denies use current occupational status: disabled Travel in the last 8 weeks: None caregiver/support person: Yes household members: caregiver housing: assisted caffeine: No Review of Systems Constitutional Constitutional: Denies body ache(s), Denies fatigue and Denies lethargy Eyes Eyes: Denies eye discharge, Denies dry eyes, Denies irritation and Denies itchy eyes ENT Ears, Nose, Mouth, and Throat: Denies epistaxis, Denies facial pain, Denies lip swelling and Denies throat swelling *Cardiovascular Cardiovascular: Reports dyspnea on exertion *Respiratory Respiratory: Reports dyspnea on exertion, Denies excessive phlegm production and Denies wheezing *Gastrointestinal Gastrointestinal: Denies abdominal pain, Denies belching and Denies cramping *Musculoskeletal Musculoskeletal: Reports back pain and Reports other (No small joint swelling or Pain) Psychiatric Psychiatric: Denies homicidal ideation and Denies suicidal ideation Endocrine Endocrine: Denies fatigue and Denies heat intolerance Hematologic/Lymphatic Hematologic/Lymphatic: Denies easy bleeding and Denies lymphadenopathy Allergic/Immunologic Allergic/Immunologic: Denies itchy eyes, Denies lip swelling, Denies throat swelling and Denies wheezing Pulmonology Exam Inpatient Vital signs and Labs for Last 24 Hours: Temp Pulse Resp BP Pulse Ox O2 Del Method O2 Flow Rate 98.3 F 80 20 149/75 H 98 BiPAP 2 05/02/23 08:00 05/02/23 09:40 05/02/23 08:00 05/02/23 08:00 05/02/23 08:00 05/02/23 08:00 05/01/23 08:01 FiO2 30 05/02/23 06:35 Laboratory Results - last 24 hr 05/01/23 09:02: VBG pH 7.31, VBG pCO2 58.0 H, VBG pO2 42.5 H, VBG HCO3 28.7, VBG Total CO2 30.5 H, VBG O2 Saturation 73.5 H, VBG Base Excess 2.5 H, VBG Lactic Acid 2.1 H 05/01/23 09:34: Troponin I < 0.01 05/01/23 12:11: Lactate 2.0 05/01/23 12:35: VBG pH 7.39, VBG pCO2 44.0, VBG pO2 79.6 H, VBG HCO3 25.9, VBG Total CO2 27.3 H, VBG O2 Saturation 96.1 H, VBG Base Excess 0.9, VBG Lactic Acid 2.8 H 05/01/23 12:45: Troponin I < 0.01 05/01/23 16:28: POC Glucose 222 H 05/01/23 21:02: POC Glucose 159 H 05/02/23 02:20: Urine Color Yellow, Urine Appearance Clear, Urine pH 7.0, Ur Specific [place] 1.020, Urine Protein Negative, Urine Glucose (UA) Negative, Urine Ketones Negative, Urine Blood Negative, Urine Nitrate Negative, Urine Bilirubin Negative, Urine Urobilinogen 0.2, Ur Leukocyte Esterase Negative 05/02/23 06:56: WBC 14.0 H, RBC 3.34 L, Hgb 11.2 L D, Hct 36.0 L, MCV 107.9 H, MCH 33.4 H, MCHC 31.0 L, RDW 14.8, Plt Count 286, MPV 8.4, Neut % (Auto) 91.0 H, Lymph % (Auto) 6.3 L, [place] % (Auto) 2.5, Eos % (Auto) 0.1, Baso % (Auto) 0.1, Neut # (Auto) 12.7 H, Lymph # (Auto) 0.9, [place] # (Auto) 0.4, Eos # (Auto) 0.0, Baso # (Auto) 0.0, Total Counted 100, Neutrophils % (Manual) 96 H, Lymphocytes % (Manual) 2 L, Monocytes % (Manual) 2, Platelet Estimate Normal, RBC Morphology Normal, Macrocytosis 1+, Sodium 138, Potassium 4.4, Chloride 103, Carbon Dioxide 28, Anion Gap 11.4, BUN 19 D, Creatinine 1.00 D, Estimated Creat Clear 92, Estimated GFR 75, Est GFR ( Amer) 91 D, Glucose 193 H D, Calcium 8.8 I & O for Labs for Last 24 Hours: Intake & Output 04/29/23 04/30/23 05/01/23 05/02/23 23:59 23:59 23:59 23:59 Intake Total 150 / 150 Output Total 0 / 0 350 / 350 Balance 0 / 150 -200 / -200 Weight 191 lb 2 oz Microbiology Reports for the Last 24 Hours: Microbiology 03/10/23 11:24 Sputum - Expectorated Sputum Gram Stain - Final Constitutional: Present moderate distress Head: Present normocephalic and atraumatic ENT: Present normal exam, normal oropharynx and mucous membranes moist Neck: Present normal inspection and full ROM Respiratory: Present able to speak in complete sentences; Absent respiratory distress, wheezes or crackles Cardiac: Present S1/S2, Tachycardia and radial pulses present GI: Present soft and distention; Absent tenderness or guarding Skin: Present intact; Absent cyanosis or jaundice Neuro: Present alert and awake; Absent oriented x 3 Extremities: Present normal inspection; Absent clubbing or cyanosis Psychiatric: Present cooperative; Absent normal affect Meds Home Medications and Allergies Home Medications Medication Instructions Recorded Confirmed Type atorvastatin 40 mg tablet (Lipitor) 40 mg PO HS Cholesterol 03/24/17 05/01/23 History isosorbide mononitrate 30 mg 30 mg PO DAILY Chest Pain 04/11/17 05/01/23 History tablet,extended release 24 hr magnesium oxide 400 mg PO HS Supplement 09/30/17 05/01/23 History acetaminophen 500 mg tablet 500 mg PO Q4HP PRN Fever Or Pain 11/10/17 05/01/23 History omeprazole 20 mg capsule,delayed 20 mg PO Q48H Acid Reflux 11/10/17 05/01/23 History release levothyroxine 50 mcg tablet 50 mcg PO DAILYDM THYROID 11/11/17 05/01/23 History losartan 25 mg tablet (Cozaar) 25 mg PO DAILY High Blood Pressure 09/29/18 05/01/23 History aspirin 81 mg chewable tablet 81 mg PO DAILY Heart Disease 01/25/19 05/01/23 History loperamide 2 mg capsule 2 mg PO Q4HP PRN Diarrhea 01/25/19 05/01/23 History trazodone 100 mg tablet 100 mg PO HS Insomnia 02/24/20 05/01/23 History tamsulosin 0.4 mg capsule (Flomax) 0.4 mg PO DAILY URINARY SYMPTOMS 04/24/20 05/01/23 History metformin 500 mg tablet 500 mg PO BIDWMEAL Diabetes 10/30/20 05/01/23 History docusate calcium 240 mg capsule 240 mg PO DAILYP PRN Constipation 02/09/21 05/01/23 History lactulose 10 gram/15 mL oral 30 ml PO DAILYP PRN Constipation 02/09/21 05/01/23 History solution duloxetine 60 mg capsule,delayed 60 mg PO DAILY MOOD 10/17/21 05/01/23 History release linagliptin 5 mg tablet (Tradjenta) 5 mg PO DAILY Diabetes 10/17/21 05/01/23 History tiotropium bromide 1.25 2 puff inhalation DAILY Copd 10/17/21 05/01/23 History mcg/actuation mist for inhalation (Spiriva Respimat) aluminum hydrox-magnesium carb 95 30 ml PO Q4HP PRN Acid Reflux 11/21/22 05/01/23 History mg-358 mg/15 mL oral suspension (Acid Gone Antacid) bisacodyl 5 mg tablet 10 mg PO DAILYP PRN Constipation 11/21/22 05/01/23 History duloxetine 30 mg capsule,delayed 30 mg PO DAILY MOOD 11/21/22 05/01/23 History release polyethylene glycol 3350 17 gram 17 g PO DAILY Constipation 11/21/22 05/01/23 History oral powder packet cariprazine 3 mg capsule (Vraylar) 3 mg PO DAILY MOOD 01/08/23 05/01/23 History cyanocobalamin (vitamin B-12) 250 750 mcg PO DAILY Supplement 01/08/23 05/01/23 History mcg tablet (Vitamin B-12) sennosides 8.6 mg-docusate sodium 2 tab PO BID Constipation 01/08/23 05/01/23 History 50 mg tablet (Senexon-S) bisacodyl 10 mg rectal suppository 10 mg CO DAILYP PRN Constipation 01/28/23 05/01/23 History insulin glargine 100 unit/mL (3 15 unit SQ HS Diabetes 01/29/23 05/01/23 History mL) subcutaneous pen (Lantus Solostar U-100 Insulin) insulin lispro protamine-lispro 17 unit SQ BID Diabetes 01/29/23 05/01/23 History 100 unit/mL (75-25) subcutaneous pen (Humalog Mix 75-25 KwikPen) albuterol sulfate 90 mcg/actuation 2 inh inhalation QIDP PRN 03/10/23 05/01/23 History aerosol inhaler Shortness Of Breath Or Wheezing folic acid 800 mcg tablet 800 mcg PO DAILY Supplement 03/10/23 05/01/23 History guaifenesin 100 mg/5 mL oral 200 mg PO Q4HP PRN Cough 03/10/23 05/01/23 History liquid (Diabetic Tussin EX) multivitamin with folic acid 400 1 tab PO DAILY Supplement 03/10/23 05/01/23 History mcg tablet (Tab-A-Laron) furosemide 40 mg tablet (Lasix) 40 mg PO DAILY Fluid 05/01/23 05/01/23 History gabapentin 400 mg capsule 400 mg PO TID NERVE PAIN 05/01/23 05/01/23 History levetiracetam 1,000 mg tablet 1,000 mg PO BID SEIZURES 05/01/23 05/01/23 History (Keppra) spironolactone 50 mg tablet 50 mg PO DAILY Fluid 05/01/23 05/01/23 History tramadol 100 mg tablet 100 mg PO QID MODERATE TO SEVERE 05/01/23 05/01/23 History PAIN New Prescriptions to Start Prescriptions: Allergies Allergy/AdvReac Type Severity Reaction Status Date / Time morphine [MORPHINE] Allergy Mild HURTS Verified 03/27/23 13:11 STOMACH nitroglycerin AdvReac Mild Nausea Verified 03/27/23 13:11 Results Laboratory Findings 05/02/23 06:56 05/02/23 06:56 Abnormal lab findings: Abnormal Labs 05/01/23 05/01/23 05/01/23 07:00 07:47 09:02 WBC 11.9 H RBC 4.10 L Hgb 14.0 L Hct MCV 106.2 H MCH 34.0 H MCHC Neut % (Auto) Lymph % (Auto) Neut # (Auto) 8.8 H Neutrophils % (Manual) Lymphocytes % (Manual) VBG pH 7.28 L VBG pCO2 64.1 H 58.0 H VBG pO2 41.8 H 42.5 H VBG Total CO2 31.1 H 30.5 H VBG O2 Saturation 70.5 H 73.5 H VBG Base Excess 2.4 H 2.5 H VBG Lactic Acid 2.1 H 2.1 H Carbon Dioxide 33 H Creatinine 1.30 H Estimated GFR 56 L Glucose 122 H POC Glucose Total Protein 9.3 H D Globulin 4.5 H 05/01/23 05/01/23 05/01/23 12:35 16:28 21:02 WBC RBC Hgb Hct MCV MCH MCHC Neut % (Auto) Lymph % (Auto) Neut # (Auto) Neutrophils % (Manual) Lymphocytes % (Manual) VBG pH VBG pCO2 VBG pO2 79.6 H VBG Total CO2 27.3 H VBG O2 Saturation 96.1 H VBG Base Excess VBG Lactic Acid 2.8 H Carbon Dioxide Creatinine Estimated GFR Glucose POC Glucose 222 H 159 H Total Protein Globulin 05/02/23 06:56 WBC 14.0 H RBC 3.34 L Hgb 11.2 L D Hct 36.0 L MCV 107.9 H MCH 33.4 H MCHC 31.0 L Neut % (Auto) 91.0 H Lymph % (Auto) 6.3 L Neut # (Auto) 12.7 H Neutrophils % (Manual) 96 H Lymphocytes % (Manual) 2 L VBG pH VBG pCO2 VBG pO2 VBG Total CO2 VBG O2 Saturation VBG Base Excess VBG Lactic Acid Carbon Dioxide Creatinine Estimated GFR Glucose 193 H D POC Glucose Total Protein Globulin Assessment and Plan *Assessment and plan (1) Acute respiratory failure with hypoxia and hypercarbia: Status: Acute Category: Medical Code(s): J96.01 - Acute respiratory failure with hypoxia; J96.02 - Acute respiratory failure with hypercapnia (2) RAJAN (obstructive sleep apnea): Status: Acute Category: Medical Code(s): G47.33 - Obstructive sleep apnea (adult) (pediatric) Plan Mr. Blakely is a 62-year-old male with no significant smoking history, history of diastolic heart failure peripheral vascular disease CAD sleep apnea with AHI 101 previously with multiple admissions for being noncompliant with BiPAP therapy presented with hypercarbic respiratory failure presented to the ER with altered mentation , pulmonary was called for further evaluation and management today. Mild neutrophilic leukocytosis upon admission. VBG upon admission showed mild hypercarbic respiratory failure with pH of 7.28 with a pCO2 of 64.1. Subsequent VBG showed significant improvement with a residual venous blood gas pH 7.39 and pCO2 44. Chest x-ray upon admission did not show any evidence of airspace disease/dense consolidative changes. On examination patient of noninvasive ventilatory therapy. Awake and alert. Following commands. Plan: Continue levofloxacin for a total of 3 days No need for steroids at this point of time. Continue albuterol/DuoNebs every 6 hours on as-needed basis Continue home on BiPAP therapy 18/8, RR 16 and FiO2 of 35% for obstructive sleep apnea Patient can be discharged from a pulmonary standpoint we will follow the patient in pulmonary clinic in 2 to 4 weeks post discharge.
[2023-05-02 10:04] LABS: Squamous Epithelial Ur./Cath Occasional #/hpf (0-5); WBC,Urine/Cath Occasional #/hpf (0-3)
[2023-05-02 12:06] LABS: VBG Base Excess 2.6 mmol/L (-2.4-2.3); VBG HCO3 26.4 mmol/L (23-30); VBG Oxygen Saturation 99.4 % (50-70); VBG PCO2 37.3 mmol/L (35-51); VBG PH 7.47 mmol/L (7.31-7.41); VBG PO2 168.3 mmol/L (28-40); VBG Total CO2 27.5 mmol/L (23-27)
[2023-05-02 12:12] LABS: Lactate Venous 3.4 mmol/L (0.4-2.0)
--- NOTE | 2023-05-02 14:08 | P.DS_ITS ---
General Admission date:: 05/01/23 Discharge date: 05/02/23 HPI HPI HPI: Patient is a 62-year-old male with past medical history of COPD on 2 L nasal cannula, CKD, anxiety, CHF, cerebral palsy who presents to the hospital due to lethargy and decreased level of consciousness. Patient was also reportedly found to have hypoxia and hypercarbia and was started on BiPAP. Patient was also noted to have elevated creatinine. Hospital Course Hospital Course Hospital Course: Patient is a 62-year-old male with past medical history of COPD on 2 L nasal cannula, CKD, anxiety, CHF, cerebral palsy who presents to the hospital due to lethargy and decreased level of consciousness. Patient was also reportedly found to have hypoxia and hypercarbia and was started on BiPAP. Patient was also noted to have elevated creatinine. Assessment and plan Acute hypoxic hypercapnic respiratory failure satting less than 90% on room air, improved, likely due to uncontrolled RAJAN - Lethargy, acute encephalopathy likely secondary to hypercapnia - improved night CPAP/ BiPAP Acute kidney injury - improved Diabetes mellitus Insulin sliding scale Exam Data for Last 24 hours Vital signs and Labs for Last 24 Hours: Temp Pulse Resp BP Pulse Ox O2 Del Method O2 Flow Rate 98.6 F 95 H 18 109/69 L 96 Nasal Cannula 2 05/02/23 12:00 05/02/23 12:00 05/02/23 12:00 05/02/23 12:00 05/02/23 12:00 05/02/23 12:00 05/02/23 12:00 FiO2 30 05/02/23 06:35 Laboratory Results - last 24 hr 05/01/23 16:28: POC Glucose 222 H 05/01/23 21:02: POC Glucose 159 H 05/02/23 02:20: Urine Color Yellow, Urine Appearance Clear, Urine pH 7.0, Ur Specific [place] 1.020, Urine Protein Negative, Urine Glucose (UA) Negative, Urine Ketones Negative, Urine Blood Negative, Urine Nitrate Negative, Urine Bilirubin Negative, Urine Urobilinogen 0.2, Ur Leukocyte Esterase Negative, Urine RBC None, Urine WBC Occasional, Ur Squamous Epith Cells Occasional, Urine Bacteria None 05/02/23 06:56: WBC 14.0 H, RBC 3.34 L, Hgb 11.2 L D, Hct 36.0 L, MCV 107.9 H, MCH 33.4 H, MCHC 31.0 L, RDW 14.8, Plt Count 286, MPV 8.4, Neut % (Auto) 91.0 H, Lymph % (Auto) 6.3 L, [place] % (Auto) 2.5, Eos % (Auto) 0.1, Baso % (Auto) 0.1, Neut # (Auto) 12.7 H, Lymph # (Auto) 0.9, [place] # (Auto) 0.4, Eos # (Auto) 0.0, Baso # (Auto) 0.0, Total Counted 100, Neutrophils % (Manual) 96 H, Lymphocytes % (Manual) 2 L, Monocytes % (Manual) 2, Platelet Estimate Normal, RBC Morphology Normal, Macrocytosis 1+, Sodium 138, Potassium 4.4, Chloride 103, Carbon Dioxide 28, Anion Gap 11.4, BUN 19 D, Creatinine 1.00 D, Estimated Creat Clear 92, Estimated GFR 75, Est GFR ( Amer) 91 D, Glucose 193 H D, Calcium 8.8 05/02/23 11:42: VBG pH 7.47 H, VBG pCO2 37.3, VBG pO2 168.3 H, VBG HCO3 26.4, VBG Total CO2 27.5 H, VBG O2 Saturation 99.4 H, VBG Base Excess 2.6 H, VBG Lactic Acid 3.4 H I & O for Last 24 hours: Intake & Output 04/29/23 04/30/23 05/01/23 05/02/23 23:59 23:59 23:59 23:59 Intake Total 510 / 510 Output Total 0 / 0 350 / 350 Balance 0 / 150 160 / 160 Weight 86.693 kg Constitutional Constitutional: no acute distress, obese and chronically ill appearing *Routine HEENT Exam Head: Present normocephalic Eye: Present EOMI and PERRL ENT: Present mucous membranes moist *Routine Neck Exam Neck: Present supple; Absent lymphadenopathy *Routine Respiratory Exam Respiratory: Present CTA bilaterally and distant breath sounds; Absent rhonchi, stridor, wheezes or crackles *Routine Cardiovascular Exam Cardiovascular: Present RRR *Routine Abdominal Exam Abdominal: Present soft and normoactive bowel sounds; Absent tenderness *Routine Extremities Exam Extremities: Absent cyanosis, clubbing or edema Comments: Sarcopenia of lower extremities, *Routine Skin Exam Skin: Present warm; Absent rash *Routine Neurological Exam Neurological: Present alert and normal speech; Absent altered mental status or moving all extremities Comments: Weak upper extremities but has function of both arms. Unable to move legs. Slow to respond to questions but answers are appropriate Results Data Completed and Pending Labs on day of discharge: Labs from last 24 hours 05/02/23 05/02/23 05/02/23 11:42 06:56 02:20 WBC 14.0 H RBC 3.34 L Hgb 11.2 L D Hct 36.0 L MCV 107.9 H MCH 33.4 H MCHC 31.0 L RDW 14.8 Plt Count 286 MPV 8.4 Neut % (Auto) 91.0 H Lymph % (Auto) 6.3 L [place] % (Auto) 2.5 Eos % (Auto) 0.1 Baso % (Auto) 0.1 Neut # (Auto) 12.7 H Lymph # (Auto) 0.9 [place] # (Auto) 0.4 Eos # (Auto) 0.0 Baso # (Auto) 0.0 Total Counted 100 Neutrophils % (Manual) 96 H Lymphocytes % (Manual) 2 L Monocytes % (Manual) 2 Platelet Estimate Normal RBC Morphology Normal Macrocytosis 1+ VBG pH 7.47 H VBG pCO2 37.3 VBG pO2 168.3 H VBG HCO3 26.4 VBG Total CO2 27.5 H VBG O2 Saturation 99.4 H VBG Base Excess 2.6 H VBG Lactic Acid 3.4 H Sodium 138 Potassium 4.4 Chloride 103 Carbon Dioxide 28 Anion Gap 11.4 BUN 19 D Creatinine 1.00 D Estimated Creat Clear 92 Estimated GFR 75 Est GFR ( Amer) 91 D Glucose 193 H D POC Glucose Calcium 8.8 Urine Color Yellow Urine Appearance Clear Urine pH 7.0 Ur Specific [place] 1.020 Urine Protein Negative Urine Glucose (UA) Negative Urine Ketones Negative Urine Blood Negative Urine Nitrate Negative Urine Bilirubin Negative Urine Urobilinogen 0.2 Ur Leukocyte Esterase Negative Urine RBC None Urine WBC Occasional Ur Squamous Epith Cells Occasional Urine Bacteria None 05/01/23 05/01/23 21:02 16:28 WBC RBC Hgb Hct MCV MCH MCHC RDW Plt Count MPV Neut % (Auto) Lymph % (Auto) [place] % (Auto) Eos % (Auto) Baso % (Auto) Neut # (Auto) Lymph # (Auto) [place] # (Auto) Eos # (Auto) Baso # (Auto) Total Counted Neutrophils % (Manual) Lymphocytes % (Manual) Monocytes % (Manual) Platelet Estimate RBC Morphology Macrocytosis VBG pH VBG pCO2 VBG pO2 VBG HCO3 VBG Total CO2 VBG O2 Saturation VBG Base Excess VBG Lactic Acid Sodium Potassium Chloride Carbon Dioxide Anion Gap BUN Creatinine Estimated Creat Clear Estimated GFR Est GFR ( Amer) Glucose POC Glucose 159 H 222 H Calcium Urine Color Urine Appearance Urine pH Ur Specific [place] Urine Protein Urine Glucose (UA) Urine Ketones Urine Blood Urine Nitrate Urine Bilirubin Urine Urobilinogen Ur Leukocyte Esterase Urine RBC Urine WBC Ur Squamous Epith Cells Urine Bacteria DS: Diagnosis Discharge Diagnosis (1) Acute respiratory failure with hypoxia and hypercarbia: Status: Acute Code(s): J96.01 - Acute respiratory failure with hypoxia; J96.02 - Acute respiratory failure with hypercapnia (2) RAJAN (obstructive sleep apnea): Status: Acute Code(s): G47.33 - Obstructive sleep apnea (adult) (pediatric) Meds Home Medications and Allergies Home Medications Medication Instructions Recorded Confirmed Type atorvastatin 40 mg tablet (Lipitor) 40 mg PO HS Cholesterol 03/24/17 05/01/23 History isosorbide mononitrate 30 mg 30 mg PO DAILY Chest Pain 04/11/17 05/01/23 History tablet,extended release 24 hr magnesium oxide 400 mg PO HS Supplement 09/30/17 05/01/23 History acetaminophen 500 mg tablet 500 mg PO Q4HP PRN Fever Or Pain 11/10/17 05/01/23 History omeprazole 20 mg capsule,delayed 20 mg PO Q48H Acid Reflux 11/10/17 05/01/23 History release levothyroxine 50 mcg tablet 50 mcg PO DAILYDM THYROID 11/11/17 05/01/23 History losartan 25 mg tablet (Cozaar) 25 mg PO DAILY High Blood Pressure 09/29/18 05/01/23 History aspirin 81 mg chewable tablet 81 mg PO DAILY Heart Disease 01/25/19 05/01/23 History loperamide 2 mg capsule 2 mg PO Q4HP PRN Diarrhea 01/25/19 05/01/23 History trazodone 100 mg tablet 100 mg PO HS Insomnia 02/24/20 05/01/23 History tamsulosin 0.4 mg capsule (Flomax) 0.4 mg PO DAILY URINARY SYMPTOMS 04/24/20 05/01/23 History metformin 500 mg tablet 500 mg PO BIDWMEAL Diabetes 10/30/20 05/01/23 History docusate calcium 240 mg capsule 240 mg PO DAILYP PRN Constipation 02/09/21 05/01/23 History lactulose 10 gram/15 mL oral 30 ml PO DAILYP PRN Constipation 02/09/21 05/01/23 History solution duloxetine 60 mg capsule,delayed 60 mg PO DAILY MOOD 10/17/21 05/01/23 History release linagliptin 5 mg tablet (Tradjenta) 5 mg PO DAILY Diabetes 10/17/21 05/01/23 History tiotropium bromide 1.25 2 puff inhalation DAILY Copd 10/17/21 05/01/23 History mcg/actuation mist for inhalation (Spiriva Respimat) aluminum hydrox-magnesium carb 95 30 ml PO Q4HP PRN Acid Reflux 11/21/22 05/01/23 History mg-358 mg/15 mL oral suspension (Acid Gone Antacid) bisacodyl 5 mg tablet 10 mg PO DAILYP PRN Constipation 11/21/22 05/01/23 History duloxetine 30 mg capsule,delayed 30 mg PO DAILY MOOD 11/21/22 05/01/23 History release polyethylene glycol 3350 17 gram 17 g PO DAILY Constipation 11/21/22 05/01/23 History oral powder packet cariprazine 3 mg capsule (Vraylar) 3 mg PO DAILY MOOD 01/08/23 05/01/23 History cyanocobalamin (vitamin B-12) 250 750 mcg PO DAILY Supplement 01/08/23 05/01/23 History mcg tablet (Vitamin B-12) sennosides 8.6 mg-docusate sodium 2 tab PO BID Constipation 01/08/23 05/01/23 History 50 mg tablet (Senexon-S) bisacodyl 10 mg rectal suppository 10 mg IA DAILYP PRN Constipation 01/28/23 05/01/23 History insulin glargine 100 unit/mL (3 15 unit SQ HS Diabetes 01/29/23 05/01/23 History mL) subcutaneous pen (Lantus Solostar U-100 Insulin) insulin lispro protamine-lispro 17 unit SQ BID Diabetes 01/29/23 05/01/23 History 100 unit/mL (75-25) subcutaneous pen (Humalog Mix 75-25 KwikPen) albuterol sulfate 90 mcg/actuation 2 inh inhalation QIDP PRN 03/10/23 05/01/23 History aerosol inhaler Shortness Of Breath Or Wheezing folic acid 800 mcg tablet 800 mcg PO DAILY Supplement 03/10/23 05/01/23 History guaifenesin 100 mg/5 mL oral 200 mg PO Q4HP PRN Cough 03/10/23 05/01/23 History liquid (Diabetic Tussin EX) multivitamin with folic acid 400 1 tab PO DAILY Supplement 03/10/23 05/01/23 History mcg tablet (Tab-A-Laron) furosemide 40 mg tablet (Lasix) 40 mg PO DAILY Fluid 05/01/23 05/01/23 History gabapentin 400 mg capsule 400 mg PO TID NERVE PAIN 05/01/23 05/01/23 History levetiracetam 1,000 mg tablet 1,000 mg PO BID SEIZURES 05/01/23 05/01/23 History (Keppra) spironolactone 50 mg tablet 50 mg PO DAILY Fluid 05/01/23 05/01/23 History tramadol 100 mg tablet 100 mg PO QID MODERATE TO SEVERE 05/01/23 05/01/23 History PAIN levofloxacin 750 mg tablet 750 mg PO DAILY 3 days #3 tabs 05/02/23 Rx New Prescriptions to Start Prescriptions: levofloxacin Reginald Louis Allergies Allergy/AdvReac Type Severity Reaction Status Date / Time morphine [MORPHINE] Allergy Mild HURTS Verified 03/27/23 13:11 STOMACH nitroglycerin AdvReac Mild Nausea Verified 03/27/23 13:11 Discharge Plan Disposition Patient Disposition: Xfer SNF Condition: Fair Discharge Order Discharge Orders: Discharge Order (Routine); Ordered 05/02/23 Ordered By: Reginald Louis Follow up Plan Follow up with: Salome Shah MD [Physician] - 2 weeks Prescriptions/Medication Reconciliation: New levofloxacin 750 mg tablet 750 mg PO DAILY 3 Days Qty: 3 0RF Continued atorvastatin [Lipitor] 40 mg tablet 40 mg PO HS losartan [Cozaar] 25 mg tablet 25 mg PO DAILY magnesium oxide 400 mg capsule 400 mg PO HS tamsulosin [Flomax] 0.4 mg capsule 0.4 mg PO DAILY metformin 500 mg tablet 500 mg PO BIDWMEAL Tradjenta 5 mg tablet 5 mg PO DAILY Spiriva Respimat 1.25 mcg/actuation mist 2 puff inhalation DAILY Acid Gone Antacid 95-358 mg/15 mL suspension 30 ml PO Q4HP PRN (Reason: Acid Reflux) polyethylene glycol 3350 17 gram powder in packet 17 g PO DAILY bisacodyl 5 mg tablet 10 mg PO DAILYP PRN (Reason: Constipation) duloxetine 30 mg capsule,delayed release(DR/EC) 30 mg PO DAILY isosorbide mononitrate 30 mg tablet extended release 24 hr 30 mg PO DAILY bisacodyl 10 mg suppository 10 mg IA DAILYP PRN (Reason: Constipation) insulin lispro protamin-lispro [Humalog Mix 75-25 KwikPen] 100 unit/mL (75-25) insulin pen 17 unit SQ BID insulin glargine [Lantus Solostar U-100 Insulin] 100 unit/mL (3 mL) insulin pen 15 unit SQ HS loperamide 2 MG capsule 2 mg PO Q4HP PRN (Reason: Diarrhea) aspirin 81 MG tablet,chewable 81 mg PO DAILY docusate calcium 240 MG capsule 240 mg PO DAILYP PRN (Reason: Constipation) lactulose 10 GM/15 ML solution 30 ml PO DAILYP PRN (Reason: Constipation) sennosides-docusate sodium [Senexon-S] 8.6-50 mg Tablet 2 tab PO BID cyanocobalamin (vitamin B-12) [Vitamin B-12] 250 mcg Tablet 750 mcg PO DAILY Vraylar 3 mg Capsule 3 mg PO DAILY furosemide [Lasix] 40 mg tablet 40 mg PO DAILY gabapentin 400 mg capsule 400 mg PO TID spironolactone 50 mg tablet 50 mg PO DAILY levetiracetam [Keppra] 1,000 mg tablet 1,000 mg PO BID tramadol 100 mg tablet 100 mg PO QID acetaminophen 500 MG tablet 500 mg PO Q4HP PRN (Reason: Fever Or Pain) omeprazole 20 MG capsule,delayed release(DR/EC) 20 mg PO Q48H levothyroxine 50 MCG tablet 50 mcg PO DAILYDM duloxetine 60 mg capsule,delayed release(DR/EC) 60 mg PO DAILY trazodone 100 MG tablet 100 mg PO HS guaifenesin [Diabetic Tussin EX] 100 mg/5 mL Liquid 200 mg PO Q4HP PRN (Reason: Cough) albuterol sulfate 90 mcg/actuation HFA aerosol inhaler 2 inh IH QIDP PRN (Reason: Shortness Of Breath Or Wheezing) folic acid 800 mcg tablet 800 mcg PO DAILY multivitamin with folic acid [Tab-A-Laron] 400 mcg Tablet 1 tab PO DAILY Problem Reconciliation Problems Reviewed?: Yes Patient Discharge Instructions ACTIVITY: Ambulate as tolerated DIET: continue same diet Providers Primary Care Provider: Provider,Referral Admit Provider: Reginald Louis Attending Provider: Reginald Louis
[2023-05-02 14:20] LABS: Lactic Acid 3.9 mmol/L (0.7-2.1)
[2023-05-02] MEDS: LEVOFLOXACIN/D5W 500 MG/100 ML PIGGYBACK 100 MG IV (15:20)
[2023-05-02 16:12] LABS: Reflex Lactic Add Lactic Reflex
[2023-05-02 16:58] LABS: Lactic Acid Follow Up (RFLX 1) 3.5 mmol/L (0.7-2.1)
[2023-05-02 17:32] LABS: POC Glucose,Bedside 100 (70-110)
[2023-05-02 18:36] LABS: Reflex Lactic (2 hrs) Add Lactic Reflex
--- NOTE | 2023-05-02 18:55 | PC.NURSE ---
PT IS RESTING IN BED. ALERT TO SELF ONLY. PT HAS BEEN AWAKE AND ALERT T/O THE SHIFT. O2 SATURATION HAS MAINTAINED 90-96% ON 2 L NC. LUNG SOUNDS DIMINISHED WITH SCATTERED WHEEZES. ABDOMEN SOFT/NON TENDER WITH HYPOACTIVE BOWEL SOUNDS. TURNED AND REPOSITIONED FREQUENTLY IN BED. WILL CONTINUE TO MONITOR.
[2023-05-02 20:04] LABS: Lactic Acid Follow up (RFLX 2) 3.3 mmol/L (0.7-2.1)
[2023-05-02 20:07] LABS: POC Glucose,Bedside 174 (70-110)
[2023-05-02] MEDS: ATORVASTATIN 40MG TABLET 40 MG PO (20:31)
[2023-05-02] MEDS: MAGNESIUM OXIDE 400MG TABLET 400 MG PO (20:31)
[2023-05-02] MEDS: PANTOPRAZOLE 40MG TABLET 40 MG PO (20:32)
[2023-05-02] MEDS: TRAZODONE 50MG TABLET 100 MG PO (20:32)
[2023-05-02] MEDS: INSULIN GLARGINE 100 UNITS/ML 3ML FLEXPEN 15 UNIT SQ (20:32)
[2023-05-02 23:34] LABS: POC Glucose,Bedside 112 (70-110)
[2023-05-03] VITALS (7 sets, daily range): BP systolic 114–120; BP diastolic 57–67; PULSE 61–95; RESP 16–18; TEMP 36.7–36.8; O2SAT 96–98; BMI 38.0
--- NOTE | 2023-05-03 03:49 | PC.NURSE ---
RESTING WELL. BIPAP IN USE. O2 SAT 98% ON BIPAP/02. PATIENT IS SLOW TO ANSWERE QUESTIONS BUT ANSWERES CORRECTLY. NSR ON TELE. HS SNACK GIVEN FSBS DROPPED FROM 174 TO 112 AFTER LANTUS 15 UNITS AND 2 UNITS S/S HUMALOG RECEIVED. WAS DIAPHORETIC.
[2023-05-03 05:16] LABS: POC Glucose,Bedside 113 (70-110)
[2023-05-03] MEDS: HEPARIN SODIUM 5,000 UNIT/ML VIAL 5000 UNIT SQ ×2 (06:02→14:37)
[2023-05-03] MEDS: METFORMIN 500MG TABLET 500 MG PO (09:18)
[2023-05-03] MEDS: SPIRONOLACTONE 25MG TABLET 50 MG PO (09:18)
[2023-05-03] MEDS: SENNOSIDES 8.6MG/DOCUSATE 50MG TABLET 2 TAB PO (09:18)
[2023-05-03] MEDS: TAMSULOSIN 0.4MG CAPSULE 0.400000000000000022 MG PO (09:18)
[2023-05-03] MEDS: GABAPENTIN 400MG CAPSULE 400 MG PO ×2 (09:18→14:37)
[2023-05-03] MEDS: IRBESARTAN 75MG TABLET 37.5 MG PO (09:18)
[2023-05-03] MEDS: ASPIRIN 81MG CHEWABLE TABLET 81 MG PO (09:18)
[2023-05-03] MEDS: POLYETHYLENE GLYCOL 3350 17 GM PACKET PO (09:19)
[2023-05-03] MEDS: ISOSORBIDE MONO 30MG TAB.ER.24H 30 MG PO (09:19)
[2023-05-03] MEDS: DULOXETINE 30MG CAPSULE.DR 90 MG PO (09:19)
[2023-05-03] MEDS: levETIRAcetam 500 MG TABLET 1000 MG PO (09:20)
[2023-05-03 09:22] LABS: Basophils # 0.1 K/mm3 (0-0.2); Basophils % 0.5 % (0.1-2.0); Eosinophils # 0.1 K/mm3 (0.0-0.4); Eosinophils % 0.7 % (0.1-12.0); Hematocrit 34.7 % (42.0-52.0); Hemoglobin 10.8 g/dL (14.1-18.0); Lymphocytes # 2.1 K/mm3 (0.7-4.5); Lymphocytes % 18.2 % (10-50); Mean Corpuscular HGB Conc 31.3 g/dL (31.8-35.4); Mean Corpuscular Volume 108.8 fl (80-94); Mean Platelet Volume 8.3 fl (7.4-10.4); Monocytes # 0.7 K/mm3 (0.1-1.0); Monocytes % 5.7 % (1.7-9.3); Neutrophils # 8.8 K/mm3 (1.8-7.8); Neutrophils % 74.9 % (37.0-80.0); Platelet Count 272 K/mm3 (142-424); Red Blood Count 3.18 M/mm3 (4.60-6.20); Red Cell Distribution Width 14.8 % (11.5-17.5); White Blood Count 11.7 K/mm3 (4.8-10.8)
[2023-05-03 09:27] LABS: Chloride 100 mmol/L (98-107)
[2023-05-03 09:28] LABS: Potassium 3.7 mmoL/L (3.5-5.1); Sodium 137 mmol/L (136-145)
[2023-05-03 09:30] LABS: Blood Urea Nitrogen 22 mg/dl (9-20); Creatinine Clearance Estimated 84 mL/min (50-200); Estimated Glomerular Filt Rate 67 ml/min (>60); GFR (African American) 82 ML/MIN (>60)
[2023-05-03 09:31] LABS: Anion Gap 8.7 mEq/L (5-15); Calcium 8.5 mg/dl (8.4-10.2); Carbon Dioxide 32 mmol/L (22.0-30.0); Glucose 124 mg/dl (74-100); Lactic Acid 1.8 mmol/L (0.7-2.1)
--- NOTE | 2023-05-03 10:09 | P.DS_ITS ---
General Admission date:: 05/01/23 Discharge date: 05/03/23 HPI HPI HPI: Patient is a 62-year-old male with past medical history of COPD on 2 L nasal cannula, CKD, anxiety, CHF, cerebral palsy who presents to the hospital due to lethargy and decreased level of consciousness. Patient was also reportedly found to have hypoxia and hypercarbia and was started on BiPAP. Patient was also noted to have elevated creatinine. Hospital Course Hospital Course Hospital Course: Patient is a 62-year-old male with past medical history of COPD on 2 L nasal cannula, CKD, anxiety, CHF, cerebral palsy who presents to the hospital due to lethargy and decreased level of consciousness. Patient was also reportedly found to have hypoxia and hypercarbia and was started on BiPAP. Patient was also noted to have elevated creatinine. Assessment and plan Acute hypoxic hypercapnic respiratory failure satting less than 90% on room air, improved, likely due to uncontrolled RAJAN - Lethargy, acute encephalopathy likely secondary to hypercapnia - improved night CPAP/ BiPAP DC on oral levofloxacin Acute kidney injury - improved Diabetes mellitus Insulin sliding scale Exam Data for Last 24 hours Vital signs and Labs for Last 24 Hours: Temp Pulse Resp BP Pulse Ox O2 Del Method O2 Flow Rate 98.0 F 61 16 119/58 L 98 Nasal Cannula 2 05/03/23 08:00 05/03/23 08:00 05/03/23 08:00 05/03/23 08:00 05/03/23 08:00 05/03/23 08:00 05/03/23 08:00 FiO2 30 05/03/23 02:00 Laboratory Results - last 24 hr 05/02/23 11:42: VBG pH 7.47 H, VBG pCO2 37.3, VBG pO2 168.3 H, VBG HCO3 26.4, VBG Total CO2 27.5 H, VBG O2 Saturation 99.4 H, VBG Base Excess 2.6 H, VBG Lactic Acid 3.4 H 05/02/23 13:45: Lactate 3.9 H 05/02/23 16:32: Lactate 3.5 H 05/02/23 17:24: POC Glucose 100 05/02/23 19:25: Lactate 3.3 H 05/02/23 19:58: POC Glucose 174 H 05/02/23 23:27: POC Glucose 112 H 05/03/23 05:06: POC Glucose 113 H 05/03/23 09:13: WBC 11.7 H, RBC 3.18 L, Hgb 10.8 L, Hct 34.7 L, MCV 108.8 H, MCH 34.0 H, MCHC 31.3 L, RDW 14.8, Plt Count 272, MPV 8.3, Neut % (Auto) 74.9, Lymph % (Auto) 18.2, [place] % (Auto) 5.7, Eos % (Auto) 0.7, Baso % (Auto) 0.5, Neut # (Auto) 8.8 H, Lymph # (Auto) 2.1, [place] # (Auto) 0.7, Eos # (Auto) 0.1, Baso # (Auto) 0.1, Sodium 137, Potassium 3.7, Chloride 100, Carbon Dioxide 32 H, Anion Gap 8.7, BUN 22 H, Creatinine 1.10, Estimated Creat Clear 84, Estimated GFR 67, Est GFR ( Amer) 82, Glucose 124 H, Lactate 1.8, Calcium 8.5 I & O for Last 24 hours: Intake & Output 04/30/23 05/01/23 05/02/23 05/03/23 23:59 23:59 23:59 23:59 Intake Total 1445 / 1445 Output Total 0 / 0 1450 / 1450 1300 / 1300 Balance 0 / 150 -5 / -5 -1300 / -1300 Weight 86.693 kg 87.861 kg Constitutional Constitutional: no acute distress, obese and chronically ill appearing Comments: his mentaion aden, he is more alert and awake *Routine HEENT Exam Head: Present normocephalic Eye: Present EOMI and PERRL ENT: Present mucous membranes moist *Routine Neck Exam Neck: Present supple; Absent lymphadenopathy *Routine Respiratory Exam Respiratory: Present CTA bilaterally and distant breath sounds; Absent rhonchi, stridor, wheezes or crackles *Routine Cardiovascular Exam Cardiovascular: Present RRR *Routine Abdominal Exam Abdominal: Present soft and normoactive bowel sounds; Absent tenderness *Routine Extremities Exam Extremities: Absent cyanosis, clubbing or edema Comments: Sarcopenia of lower extremities, *Routine Skin Exam Skin: Present warm; Absent rash *Routine Neurological Exam Neurological: Present alert and normal speech; Absent altered mental status or moving all extremities Comments: Weak upper extremities but has function of both arms. Unable to move legs. Slow to respond to questions but answers are appropriate Results Data Completed and Pending Labs on day of discharge: Labs from last 24 hours 05/03/23 05/03/23 05/02/23 09:13 05:06 23:27 WBC 11.7 H RBC 3.18 L Hgb 10.8 L Hct 34.7 L MCV 108.8 H MCH 34.0 H MCHC 31.3 L RDW 14.8 Plt Count 272 MPV 8.3 Neut % (Auto) 74.9 Lymph % (Auto) 18.2 [place] % (Auto) 5.7 Eos % (Auto) 0.7 Baso % (Auto) 0.5 Neut # (Auto) 8.8 H Lymph # (Auto) 2.1 [place] # (Auto) 0.7 Eos # (Auto) 0.1 Baso # (Auto) 0.1 VBG pH VBG pCO2 VBG pO2 VBG HCO3 VBG Total CO2 VBG O2 Saturation VBG Base Excess VBG Lactic Acid Sodium 137 Potassium 3.7 Chloride 100 Carbon Dioxide 32 H Anion Gap 8.7 BUN 22 H Creatinine 1.10 Estimated Creat Clear 84 Estimated GFR 67 Est GFR ( Amer) 82 Glucose 124 H POC Glucose 113 H 112 H Lactate 1.8 Calcium 8.5 05/02/23 05/02/23 05/02/23 19:58 19:25 17:24 WBC RBC Hgb Hct MCV MCH MCHC RDW Plt Count MPV Neut % (Auto) Lymph % (Auto) [place] % (Auto) Eos % (Auto) Baso % (Auto) Neut # (Auto) Lymph # (Auto) [place] # (Auto) Eos # (Auto) Baso # (Auto) VBG pH VBG pCO2 VBG pO2 VBG HCO3 VBG Total CO2 VBG O2 Saturation VBG Base Excess VBG Lactic Acid Sodium Potassium Chloride Carbon Dioxide Anion Gap BUN Creatinine Estimated Creat Clear Estimated GFR Est GFR ( Amer) Glucose POC Glucose 174 H 100 Lactate 3.3 H Calcium 05/02/23 05/02/23 05/02/23 16:32 13:45 11:42 WBC RBC Hgb Hct MCV MCH MCHC RDW Plt Count MPV Neut % (Auto) Lymph % (Auto) [place] % (Auto) Eos % (Auto) Baso % (Auto) Neut # (Auto) Lymph # (Auto) [place] # (Auto) Eos # (Auto) Baso # (Auto) VBG pH 7.47 H VBG pCO2 37.3 VBG pO2 168.3 H VBG HCO3 26.4 VBG Total CO2 27.5 H VBG O2 Saturation 99.4 H VBG Base Excess 2.6 H VBG Lactic Acid 3.4 H Sodium Potassium Chloride Carbon Dioxide Anion Gap BUN Creatinine Estimated Creat Clear Estimated GFR Est GFR ( Amer) Glucose POC Glucose Lactate 3.5 H 3.9 H Calcium DS: Diagnosis Discharge Diagnosis (1) Acute respiratory failure with hypoxia and hypercarbia: Status: Acute Code(s): J96.01 - Acute respiratory failure with hypoxia; J96.02 - Acute respiratory failure with hypercapnia (2) RAJAN (obstructive sleep apnea): Status: Acute Code(s): G47.33 - Obstructive sleep apnea (adult) (pediatric) Meds Home Medications and Allergies Home Medications Medication Instructions Recorded Confirmed Type atorvastatin 40 mg tablet (Lipitor) 40 mg PO HS Cholesterol 03/24/17 05/01/23 History isosorbide mononitrate 30 mg 30 mg PO DAILY Chest Pain 04/11/17 05/01/23 History tablet,extended release 24 hr magnesium oxide 400 mg PO HS Supplement 09/30/17 05/01/23 History acetaminophen 500 mg tablet 500 mg PO Q4HP PRN Fever Or Pain 11/10/17 05/01/23 History omeprazole 20 mg capsule,delayed 20 mg PO Q48H Acid Reflux 11/10/17 05/01/23 History release levothyroxine 50 mcg tablet 50 mcg PO DAILYDM THYROID 11/11/17 05/01/23 History losartan 25 mg tablet (Cozaar) 25 mg PO DAILY High Blood Pressure 09/29/18 05/01/23 History aspirin 81 mg chewable tablet 81 mg PO DAILY Heart Disease 01/25/19 05/01/23 History loperamide 2 mg capsule 2 mg PO Q4HP PRN Diarrhea 01/25/19 05/01/23 History trazodone 100 mg tablet 100 mg PO HS Insomnia 02/24/20 05/01/23 History tamsulosin 0.4 mg capsule (Flomax) 0.4 mg PO DAILY URINARY SYMPTOMS 04/24/20 05/01/23 History metformin 500 mg tablet 500 mg PO BIDWMEAL Diabetes 10/30/20 05/01/23 History docusate calcium 240 mg capsule 240 mg PO DAILYP PRN Constipation 02/09/21 05/01/23 History lactulose 10 gram/15 mL oral 30 ml PO DAILYP PRN Constipation 02/09/21 05/01/23 History solution duloxetine 60 mg capsule,delayed 60 mg PO DAILY MOOD 10/17/21 05/01/23 History release linagliptin 5 mg tablet (Tradjenta) 5 mg PO DAILY Diabetes 10/17/21 05/01/23 History tiotropium bromide 1.25 2 puff inhalation DAILY Copd 10/17/21 05/01/23 History mcg/actuation mist for inhalation (Spiriva Respimat) aluminum hydrox-magnesium carb 95 30 ml PO Q4HP PRN Acid Reflux 11/21/22 05/01/23 History mg-358 mg/15 mL oral suspension (Acid Gone Antacid) bisacodyl 5 mg tablet 10 mg PO DAILYP PRN Constipation 11/21/22 05/01/23 History duloxetine 30 mg capsule,delayed 30 mg PO DAILY MOOD 11/21/22 05/01/23 History release polyethylene glycol 3350 17 gram 17 g PO DAILY Constipation 11/21/22 05/01/23 History oral powder packet cariprazine 3 mg capsule (Vraylar) 3 mg PO DAILY MOOD 01/08/23 05/01/23 History cyanocobalamin (vitamin B-12) 250 750 mcg PO DAILY Supplement 01/08/23 05/01/23 History mcg tablet (Vitamin B-12) sennosides 8.6 mg-docusate sodium 2 tab PO BID Constipation 01/08/23 05/01/23 History 50 mg tablet (Senexon-S) bisacodyl 10 mg rectal suppository 10 mg OK DAILYP PRN Constipation 01/28/23 05/01/23 History insulin glargine 100 unit/mL (3 15 unit SQ HS Diabetes 01/29/23 05/01/23 History mL) subcutaneous pen (Lantus Solostar U-100 Insulin) insulin lispro protamine-lispro 17 unit SQ BID Diabetes 01/29/23 05/01/23 History 100 unit/mL (75-25) subcutaneous pen (Humalog Mix 75-25 KwikPen) albuterol sulfate 90 mcg/actuation 2 inh inhalation QIDP PRN 03/10/23 05/01/23 History aerosol inhaler Shortness Of Breath Or Wheezing folic acid 800 mcg tablet 800 mcg PO DAILY Supplement 03/10/23 05/01/23 History guaifenesin 100 mg/5 mL oral 200 mg PO Q4HP PRN Cough 03/10/23 05/01/23 History liquid (Diabetic Tussin EX) multivitamin with folic acid 400 1 tab PO DAILY Supplement 03/10/23 05/01/23 History mcg tablet (Tab-A-Laron) furosemide 40 mg tablet (Lasix) 40 mg PO DAILY Fluid 05/01/23 05/01/23 History gabapentin 400 mg capsule 400 mg PO TID NERVE PAIN 05/01/23 05/01/23 History levetiracetam 1,000 mg tablet 1,000 mg PO BID SEIZURES 05/01/23 05/01/23 History (Keppra) spironolactone 50 mg tablet 50 mg PO DAILY Fluid 05/01/23 05/01/23 History tramadol 100 mg tablet 100 mg PO QID MODERATE TO SEVERE 05/01/23 05/01/23 History PAIN levofloxacin 750 mg tablet 750 mg PO DAILY 3 days #3 tabs 05/02/23 Rx New Prescriptions to Start Prescriptions: levoReginald Sr Allergies Allergy/AdvReac Type Severity Reaction Status Date / Time morphine [MORPHINE] Allergy Mild HURTS Verified 03/27/23 13:11 STOMACH nitroglycerin AdvReac Mild Nausea Verified 03/27/23 13:11 Discharge Plan Disposition Patient Disposition: [facility] Condition: Fair Discharge Order Discharge Orders: Discharge Order (Routine); Ordered 05/03/23 Ordered By: Reginald Louis Follow up Plan Follow up with: Salome Shah MD [Physician] - 05/14/23 1:15 pm Prescriptions/Medication Reconciliation: New levofloxacin 750 mg tablet 750 mg PO DAILY 3 Days Qty: 3 0RF Continued atorvastatin [Lipitor] 40 mg tablet 40 mg PO HS losartan [Cozaar] 25 mg tablet 25 mg PO DAILY magnesium oxide 400 mg capsule 400 mg PO HS tamsulosin [Flomax] 0.4 mg capsule 0.4 mg PO DAILY metformin 500 mg tablet 500 mg PO BIDWMEAL Tradjenta 5 mg tablet 5 mg PO DAILY Spiriva Respimat 1.25 mcg/actuation mist 2 puff inhalation DAILY Acid Gone Antacid 95-358 mg/15 mL suspension 30 ml PO Q4HP PRN (Reason: Acid Reflux) polyethylene glycol 3350 17 gram powder in packet 17 g PO DAILY bisacodyl 5 mg tablet 10 mg PO DAILYP PRN (Reason: Constipation) duloxetine 30 mg capsule,delayed release(DR/EC) 30 mg PO DAILY isosorbide mononitrate 30 mg tablet extended release 24 hr 30 mg PO DAILY bisacodyl 10 mg suppository 10 mg OK DAILYP PRN (Reason: Constipation) insulin lispro protamin-lispro [Humalog Mix 75-25 KwikPen] 100 unit/mL (75-25) insulin pen 17 unit SQ BID insulin glargine [Lantus Solostar U-100 Insulin] 100 unit/mL (3 mL) insulin pen 15 unit SQ HS loperamide 2 MG capsule 2 mg PO Q4HP PRN (Reason: Diarrhea) aspirin 81 MG tablet,chewable 81 mg PO DAILY docusate calcium 240 MG capsule 240 mg PO DAILYP PRN (Reason: Constipation) lactulose 10 GM/15 ML solution 30 ml PO DAILYP PRN (Reason: Constipation) sennosides-docusate sodium [Senexon-S] 8.6-50 mg Tablet 2 tab PO BID cyanocobalamin (vitamin B-12) [Vitamin B-12] 250 mcg Tablet 750 mcg PO DAILY Vraylar 3 mg Capsule 3 mg PO DAILY furosemide [Lasix] 40 mg tablet 40 mg PO DAILY gabapentin 400 mg capsule 400 mg PO TID spironolactone 50 mg tablet 50 mg PO DAILY levetiracetam [Keppra] 1,000 mg tablet 1,000 mg PO BID tramadol 100 mg tablet 100 mg PO QID acetaminophen 500 MG tablet 500 mg PO Q4HP PRN (Reason: Fever Or Pain) omeprazole 20 MG capsule,delayed release(DR/EC) 20 mg PO Q48H levothyroxine 50 MCG tablet 50 mcg PO DAILYDM duloxetine 60 mg capsule,delayed release(DR/EC) 60 mg PO DAILY trazodone 100 MG tablet 100 mg PO HS guaifenesin [Diabetic Tussin EX] 100 mg/5 mL Liquid 200 mg PO Q4HP PRN (Reason: Cough) albuterol sulfate 90 mcg/actuation HFA aerosol inhaler 2 inh IH QIDP PRN (Reason: Shortness Of Breath Or Wheezing) folic acid 800 mcg tablet 800 mcg PO DAILY multivitamin with folic acid [Tab-A-Laron] 400 mcg Tablet 1 tab PO DAILY Problem Reconciliation Problems Reviewed?: Yes Patient Discharge Instructions ACTIVITY: Ambulate as tolerated DIET: continue same diet Patient Instructions: Chronic Obstructive Pulmonary Disease, DI for Shortness of Breath, How to Manage Shortness of Breath Providers Primary Care Provider: Provider,Referral Admit Provider: Reginald Louis Attending Provider: Reginald Louis
[2023-05-03 11:28] LABS: POC Glucose,Bedside 130 (70-110)
[2023-05-03] MEDS: LEVOFLOXACIN/D5W 500 MG/100 ML PIGGYBACK 100 MG IV (14:37)
[2023-05-17 21:43] LABS: POC Glucose,Bedside 183 (70-110)
== END 2023-05-03 17:20 | DRG 189 ==
LOC: ER 14:25 → ICU 14:31 → 2ND 05-02 16:21
PROVIDERS: Internal Medicine Pulmonary Disease; Admitting Provider Internal Medicine; Emergency Provider Emergency Medicine; Visit Provider Internal Medicine
DX: J96.01 Acute respiratory failure with hypoxia (principal); J44.1 Chronic obstructive pulmonary disease with (acute) exacerbation; N17.9 Acute kidney failure, unspecified; I50.32 Chronic diastolic (congestive) heart failure; J96.02 Acute respiratory failure with hypercapnia; Z99.81 Dependence on supplemental oxygen; G80.9 Cerebral palsy, unspecified; F25.9 Schizoaffective disorder, unspecified; Z91.199 Patient's noncompliance with other medical treatment and regimen due to unspecified reason; Z79.4 Long term (current) use of insulin; N40.0 Benign prostatic hyperplasia without lower urinary tract symptoms; K21.9 Gastro-esophageal reflux disease without esophagitis; I11.0 Hypertensive heart disease with heart failure; E03.9 Hypothyroidism, unspecified; E66.9 Obesity, unspecified; Z68.38 Body mass index [BMI] 38.0-38.9, adult; J43.9 Emphysema, unspecified; E78.5 Hyperlipidemia, unspecified; Z95.5 Presence of coronary angioplasty implant and graft
CPT/HCPCS: 36415; 71045; 80048; 80053; 81001; 82803; 82962; 83605; 83880; 84484; 85007; 85025; 87040; 93005; 94640; 94660; 99291; J0696; J1956; J3475

== ENCOUNTER 2023-12-27 06:30 | Emergency (ER) | payer MEDICARE, MEDICAID, SELFPAY ==
[2023-12-27] VITALS (13 sets, daily range): BP systolic 100–137; BP diastolic 51–75; PULSE 63–75; RESP 12–20; TEMP 36.7–36.9; O2SAT 88–100; BMI 31.7
--- NOTE | 2023-12-27 06:37 | ECG_ITS ---
APPROVED REPORT Exam: Resting ECG HR:76 bpm ECG Measurements Heart Rate 76 AXES CO 176 P 78 QRSd 88 QRS 87 QT 323 T 69 QTc 354 Conclusion SINUS RHYTHM NORMAL ECG Electronically signed by : ISRAEL FORTUNE, 12/28/2023 04:29:04
--- NOTE | 2023-12-27 06:37 | CT_ITS ---
PROCEDURE INFORMATION: Exam: CT Abdomen And Pelvis With Contrast Exam date and time: 12/27/2023 7:57 AM Age: 63 years old Clinical indication: Abdominal pain; Additional info: Ruq abd pain TECHNIQUE: Imaging protocol: Computed tomography of the abdomen and pelvis with contrast. 3D rendering (Not supervised by radiologist): MIP and/or 3D reconstructed images were created by the technologist. Radiation optimization: All CT scans at this facility use at least one of these dose optimization techniques: automated exposure control; mA and/or kV adjustment per patient size (includes targeted exams where dose is matched to clinical indication); or iterative reconstruction. Contrast material: ISOVUE; Contrast volume: 80 ml; Contrast route: IV; COMPARISON: CT ABDOMEN PELVIS W CON 03/10/2023 10:10 AM FINDINGS: Coronary arteries: Coronary artery calcifications are present. Liver: Mild hepatic steatosis. Gallbladder and biliary ducts: Normal. No calcified stones. No ductal dilation. Pancreas: Normal. No ductal dilation. Spleen: The spleen is normal. An accessory splenule is present. Adrenal glands: Normal. No mass. Kidneys and ureters: Exophytic cyst again noted anterior aspect of the right kidney with Hounsfield units of 54. This lesion measures 13 mm. Stomach and bowel: The visualized bowel appears nonobstructed. Moderate to large amount of fecal material in the colon. Appendix: The appendix is not identified however the right lateral abdomen is not included exam. Intraperitoneal space: Unremarkable. No free air. No significant fluid collection. Vasculature: Atherosclerotic changes of the aorta and branch vessels. Lymph nodes: Unremarkable. No enlarged lymph nodes. Urinary bladder: See Appendix finding. Asymmetric wall thickening involving the urinary bladder, greatest on the right. Reproductive: Unremarkable as visualized. Bones/joints: Unremarkable. No acute fracture. Soft tissues: Postoperative changes anterior pelvic wall mesh repair again noted. Other findings: The entirety of the abdomen has not been included on the study, specifically the right abdomen laterally. IMPRESSION: 1. Study is limited as the entirety of the abdomen has not been included on the study, specifically the right abdomen laterally. 2. Asymmetric wall thickening involving the urinary bladder, greatest on the right. This could reflect cystitis however recommend cystoscopy to exclude neoplastic involvement. 3. 13 mm complex exophytic cystic lesion right kidney again noted. Recommend nonemergent multiphasic MRI abdomen for further evaluation. COMMENTS: Consistent with the [employer]'s Incidental Findings Committee white paper (J Am Bridget Radiol 2018): Any incidental renal lesion less than 1 cm or classified as too small to characterize, or any incidental cystic renal lesion characterized as simple-appearing, is likely benign. No follow-up imaging is recommended for these lesions per consensus recommendations based on imaging criteria.
--- NOTE | 2023-12-27 06:37 | CT_ITS ---
PROCEDURE INFORMATION: Exam: CTA Chest With Contrast Exam date and time: 12/27/2023 7:57 AM Age: 63 years old Clinical indication: Cough; Additional info: Productive cough, hypoxia at fdc TECHNIQUE: Imaging protocol: Computed tomographic angiography of the chest with contrast. Exam focused on the arteries. 3D rendering (Not supervised by radiologist): MIP and/or 3D reconstructed images were created by the technologist. Radiation optimization: All CT scans at this facility use at least one of these dose optimization techniques: automated exposure control; mA and/or kV adjustment per patient size (includes targeted exams where dose is matched to clinical indication); or iterative reconstruction. Contrast material: ISOVUE 370; Contrast volume: 80 ml; Contrast route: INTRAVENOUS (IV); COMPARISON: CT ANGIO CHEST PE PROTOCOL 09/13/2021 2:09 AM FINDINGS: Pulmonary arteries: Normal. No pulmonary emboli. Aorta: Atherosclerotic changes of the aorta and branch vessels. Lungs: Stable 4 mm nodule in the left lateral lung base since August 2021. No further follow-up is recommended. (Reference: Scott). Calcified granuloma medial right lung base. No focal consolidation. Pleural spaces: Unremarkable. No pneumothorax. No pleural effusion. Heart: Unremarkable. No cardiomegaly. No pericardial effusion. Coronary arteries: There is severe atherosclerotic calcification of the coronary arteries. Lymph nodes: Unremarkable. No enlarged lymph nodes. Bones/joints: Unremarkable. No acute fracture. Soft tissues: Unremarkable. IMPRESSION: No pulmonary emboli. REFERENCES: Scott Kumari et al. Guidelines for Management of Incidental Pulmonary Nodules Detected on CT Images: From the Fleischner Society 2017. Radiology. 2017;284(1):228-243.
--- NOTE | 2023-12-27 06:40 | ED_ITS ---
Discharge Plan Prescriptions Prescriptions: No Action atorvastatin [Lipitor] 40 mg tablet 40 mg PO HS losartan [Cozaar] 25 mg tablet 25 mg PO DAILY magnesium oxide 400 mg capsule 400 mg PO HS tamsulosin [Flomax] 0.4 mg capsule 0.4 mg PO DAILY metformin 500 mg tablet 500 mg PO BIDWMEAL Tradjenta 5 mg tablet 5 mg PO DAILY Spiriva Respimat 1.25 mcg/actuation mist 2 puff inhalation DAILY Acid Gone Antacid 95-358 mg/15 mL suspension 30 ml PO Q4HP PRN (Reason: Acid Reflux) polyethylene glycol 3350 17 gram powder in packet 17 g PO DAILY bisacodyl 5 mg tablet 10 mg PO DAILYP PRN (Reason: Constipation) duloxetine 30 mg capsule,delayed release(DR/EC) 30 mg PO DAILY isosorbide mononitrate 30 mg tablet extended release 24 hr 30 mg PO DAILY bisacodyl 10 mg suppository 10 mg [place] DAILYP PRN (Reason: Constipation) insulin lispro protamin-lispro [Humalog Mix 75-25 KwikPen] 100 unit/mL (75-25) insulin pen 17 unit SQ BID insulin glargine [Lantus Solostar U-100 Insulin] 100 unit/mL (3 mL) insulin pen 15 unit SQ HS Qty: 15 5RF coQ10 (ubiquinol) [Qunol Pranav CoQ10] 100 mg capsule 100 mg PO BID Qty: 180 3RF tramadol 50 mg tablet 100 mg PO Q6H Qty: 240 2RF gabapentin 400 mg capsule 400 mg PO TID Qty: 90 5RF loperamide 2 MG capsule 2 mg PO Q4HP PRN (Reason: Diarrhea) aspirin 81 MG tablet,chewable 81 mg PO DAILY docusate calcium 240 MG capsule 240 mg PO DAILYP PRN (Reason: Constipation) lactulose 10 GM/15 ML solution 30 ml PO DAILYP PRN (Reason: Constipation) sennosides-docusate sodium [Senexon-S] 8.6-50 mg Tablet 2 tab PO BID cyanocobalamin (vitamin B-12) [Vitamin B-12] 250 mcg Tablet 750 mcg PO DAILY Vraylar 3 mg Capsule 3 mg PO DAILY furosemide [Lasix] 40 mg tablet 40 mg PO DAILY spironolactone 50 mg tablet 50 mg PO DAILY levetiracetam [Keppra] 1,000 mg tablet 1,000 mg PO BID levofloxacin 750 mg tablet 750 mg PO DAILY 3 Days Qty: 3 0RF acetaminophen 500 MG tablet 500 mg PO Q4HP PRN (Reason: Fever Or Pain) omeprazole 20 MG capsule,delayed release(DR/EC) 20 mg PO Q48H levothyroxine 50 mcg tablet 50 mcg PO DAILYDM duloxetine 60 mg capsule,delayed release(DR/EC) 60 mg PO DAILY trazodone 100 MG tablet 100 mg PO HS guaifenesin [Diabetic Tussin EX] 100 mg/5 mL Liquid 200 mg PO Q4HP PRN (Reason: Cough) albuterol sulfate 90 mcg/actuation HFA aerosol inhaler 2 inh IH QIDP PRN (Reason: Shortness Of Breath Or Wheezing) folic acid 800 mcg tablet 800 mcg PO DAILY multivitamin with folic acid [Tab-A-Laron] 400 mcg Tablet 1 tab PO DAILY Print Language Print Language: Irish Discharge ED Provider: Juan Carlos Peoples HPI General Stated Complaint: productive cough, low O2 sat Time Seen by Provider: 12/27/23 06:32 History of Present Illness HPI narrative: 63-year-old male who suffers with significant debility, history of hyperlipidemia, RAJAN, diabetes, CAD, hypertension presents to the ER from [facility] with reports of cough and hypoxia. Report from patient's bedside nurse, Gracia, from the half-way was that patient was saturating 80% on his 3 L nasal cannula. They had not attempted to increase his nasal cannula flow. Report from half-way was that patient received cough medicine for productive cough he had all night. Reportedly patient is supposed to wear BiPAP but does not like to wear it and the nurse at the facility stated I do not even know where it is . EMS reports when they arrived on scene patient was saturating 98% on his normal 3 L nasal cannula. They did not administer any medications to the patient. They stated patient complained to them about abdominal pain. Patient reports he has had a cough and slight difficulty breathing, he denies chest pain,, he denies any headache, dizziness, numbness, tingling, or new weakness. He states he does not have sore throat. He states he does have some right upper quadrant abdominal pain. Patient is oriented to self and location, disoriented to year. He is reportedly at his mental baseline at this time. He denies dysuria and states he had a normal bowel movement yesterday, no diarrhea or constipation. Related Data Home Medications ?Medication ?Instructions ?Recorded ?Confirmed atorvastatin 40 mg tablet (Lipitor) 40 mg PO HS Cholesterol 03/24/17 12/16/23 isosorbide mononitrate 30 mg 30 mg PO DAILY Chest Pain 04/11/17 12/16/23 tablet,extended release 24 hr magnesium oxide 400 mg PO HS Supplement 09/30/17 12/16/23 acetaminophen 500 mg tablet 500 mg PO Q4HP PRN Fever Or Pain 11/10/17 12/16/23 omeprazole 20 mg capsule,delayed 20 mg PO Q48H Acid Reflux 11/10/17 12/16/23 release losartan 25 mg tablet (Cozaar) 25 mg PO DAILY High Blood Pressure 09/29/18 12/16/23 aspirin 81 mg chewable tablet 81 mg PO DAILY Heart Disease 01/25/19 12/16/23 loperamide 2 mg capsule 2 mg PO Q4HP PRN Diarrhea 01/25/19 12/16/23 trazodone 100 mg tablet 100 mg PO HS Insomnia 02/24/20 12/16/23 tamsulosin 0.4 mg capsule (Flomax) 0.4 mg PO DAILY URINARY SYMPTOMS 04/24/20 12/16/23 metformin 500 mg tablet 500 mg PO BIDWMEAL Diabetes 10/30/20 12/16/23 docusate calcium 240 mg capsule 240 mg PO DAILYP PRN Constipation 02/09/21 12/16/23 lactulose 10 gram/15 mL oral 30 ml PO DAILYP PRN Constipation 02/09/21 12/16/23 solution duloxetine 60 mg capsule,delayed 60 mg PO DAILY MOOD 10/17/21 12/16/23 release linagliptin 5 mg tablet (Tradjenta) 5 mg PO DAILY Diabetes 10/17/21 12/16/23 tiotropium bromide 1.25 2 puff inhalation DAILY Copd 10/17/21 12/16/23 mcg/actuation mist for inhalation (Spiriva Respimat) aluminum hydrox-magnesium carb 95 30 ml PO Q4HP PRN Acid Reflux 11/21/22 12/16/23 mg-358 mg/15 mL oral suspension (Acid Gone Antacid) bisacodyl 5 mg tablet 10 mg PO DAILYP PRN Constipation 11/21/22 12/16/23 duloxetine 30 mg capsule,delayed 30 mg PO DAILY MOOD 11/21/22 12/16/23 release polyethylene glycol 3350 17 gram 17 g PO DAILY Constipation 11/21/22 12/16/23 oral powder packet cariprazine 3 mg capsule (Vraylar) 3 mg PO DAILY MOOD 01/08/23 12/16/23 cyanocobalamin (vitamin B-12) 250 750 mcg PO DAILY Supplement 01/08/23 12/16/23 mcg tablet (Vitamin B-12) sennosides 8.6 mg-docusate sodium 2 tab PO BID Constipation 01/08/23 12/16/23 50 mg tablet (Senexon-S) bisacodyl 10 mg rectal suppository 10 mg WV DAILYP PRN Constipation 01/28/23 12/16/23 insulin lispro protamine-lispro 17 unit SQ BID Diabetes 01/29/23 12/16/23 100 unit/mL (75-25) subcutaneous pen (Humalog Mix 75-25 KwikPen) albuterol sulfate 90 mcg/actuation 2 inh inhalation QIDP PRN 03/10/23 12/16/23 aerosol inhaler Shortness Of Breath Or Wheezing folic acid 800 mcg tablet 800 mcg PO DAILY Supplement 03/10/23 12/16/23 guaifenesin 100 mg/5 mL oral 200 mg PO Q4HP PRN Cough 03/10/23 12/16/23 liquid (Diabetic Tussin EX) multivitamin with folic acid 400 1 tab PO DAILY Supplement 03/10/23 12/16/23 mcg tablet (Tab-A-Laron) furosemide 40 mg tablet (Lasix) 40 mg PO DAILY Fluid 05/01/23 12/16/23 levetiracetam 1,000 mg tablet 1,000 mg PO BID SEIZURES 05/01/23 12/16/23 (Keppra) spironolactone 50 mg tablet 50 mg PO DAILY Fluid 05/01/23 12/16/23 levothyroxine 50 mcg tablet 50 mcg PO DAILYDM THYROID 05/26/23 12/16/23 Previous Rx's ?Medication ?Instructions ?Recorded levofloxacin 750 mg tablet 750 mg PO DAILY 3 days #3 tabs 05/02/23 insulin glargine 100 unit/mL (3 15 unit (0.15 mL) SQ HS #15 mL 07/08/23 mL) subcutaneous pen (Lantus Solostar U-100 Insulin) coQ10 (ubiquinol) 100 mg capsule 100 mg PO BID #180 caps 07/16/23 (Qunol Pranav CoQ10) tramadol 50 mg tablet 100 mg (2 x 50 mg) PO Q6H pain 10/28/23 #240 tabs gabapentin 400 mg capsule 400 mg PO TID NERVE PAIN #90 caps 11/17/23 Allergies Allergy/AdvReac Type Severity Reaction Status Date / Time morphine [MORPHINE] Allergy Mild HURTS Verified 12/16/23 15:15 STOMACH nitroglycerin AdvReac Mild Nausea Verified 12/16/23 15:15 PFSH PFS Disclaimer: The information contained in this section may have been updated after the patient was seen, as this information can be updated by other users. Medical History Schizoaffective disorder HLD (hyperlipidemia) Debility Diabetes mellitus Coronary arteriosclerosis in [place] artery Diverticulosis of large intestine without perforation or abscess without bleeding Generalized muscle weakness Other specified arthritis, multiple sites Primary osteoarthritis of right knee Typical angina RAJAN (obstructive sleep apnea) BPH (benign prostatic hyperplasia) COPD (chronic obstructive pulmonary disease) Acute respiratory failure with hypoxia and hypercarbia Depression Anxiety Hypothyroid GERD (gastroesophageal reflux disease) Seizure Right lower lobe pneumonia Bronchomalacia Pulmonary emphysema Renal insufficiency Chronic subdural hematoma Intolerance to BiPAP/CPAP Edema Renal lesion Celiac artery stenosis Chronic heart failure with preserved ejection fraction (HFpEF) Heart failure, NYHA class 2 Extreme obesity 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 Obesity, Class II, BMI 35-39.9, isolated (see actual BMI) Impingement syndrome of both shoulders 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 Osteopenia Renal insufficiency Anemia HHD (hypertensive heart disease) Subdural hematoma Surgical History H/O heart artery stent H/O cardiac catheterization History of carpal tunnel release History of arthroscopy of shoulder Family History Other Cancer Diabetes Social History Smoking Status: Unknown if ever smoked alcohol intake: never substance use type: denies use current occupational status: disabled Travel in the last 8 weeks: None caregiver/support person: Yes household members: caregiver housing: half-way caffeine: No Other Medical History Have you received the Flu Vaccine for this season: No Have you received the Pneumonia Vaccine: No ROS Obtained: Yes Systems reviewed as appropriate & no additional complaints except as documented ROS per HPI Physical Exam General General appearance: alert and in no apparent distress Head Head exam: atraumatic and normocephalic Eye Eye exam: Present PERRL and EOMI ENT ENT exam: Present mucous membranes moist Neck Neck exam: Present normal inspection and full ROM Chest Chest inspection: Present symmetric chest wall rise Respiratory Respiratory exam: Present other (Patient saturating 94% on room air on arrival); Absent normal lung sounds bilaterally (Rhonchi in bilateral lungs move with cough), respiratory distress, wheezes or stridor Cardiovascular Cardiovascular exam: Present regular rate and normal rhythm Abdominal Exam Abdominal exam: Present soft and other (Patient reports right upper quadrant pain but has no tenderness to palpation); Absent distention or tenderness Extremities Exam Extremities exam: Present full ROM; Absent tenderness or edema Neurological Exam Neurological exam: Present alert; Absent oriented X3 (Oriented to self and location, disoriented to year) or motor sensory deficit Psychiatric Psychiatric exam: Present normal affect and normal mood Skin Skin exam: Present warm and dry HEART Score HEART Score HEART Score assessment performed?: No Critical Care Critical Care Time Critical Care Time: No Medical Decision Making Medical Records Medical records reviewed: Yes I reviewed the patient's medical records. MR Comment: Cardiology note from December 10, 2023 demonstrates plan at that time was to not make any changes and return to clinic in 6 months. Review of other records demonstrates patient was admitted to our hospital in April with acute respiratory failure. Gaudencio Inquiry Pt receiving controlled substance: No Response Orders (Tests/Meds): ORDERS Category Date Time Status CT abdomen pelvis w con Stat Cat Scan 12/27/23 06:[address] angio chest PE protocol Stat Cat Scan 12/27/23 06:37 Ordered Complete Blood Count Auto Diff Stat Lab 12/27/23 06:32 Ordered Comprehensive Metabolic Panel Stat Lab 12/27/23 06:32 Ordered Lactic Acid Stat Lab 12/27/23 06:37 Ordered Lipase Stat Lab 12/27/23 06:37 Ordered NT Pro Brain Natriuretic Pep. Stat Lab 12/27/23 06:37 Ordered POC Glucose,Bedside Stat Lab 12/27/23 06:41 Ordered Prothrombin Time INR Stat Lab 12/27/23 06:37 Ordered Troponin I Q3H Lab 12/27/23 06:37 Ordered Troponin I Q3H Lab 12/27/23 09:45 Ordered Troponin I Q3H Lab 12/27/23 12:45 Ordered Troponin I Stat Lab 12/27/23 06:32 Ordered VBG [Venous Blood Gas] Stat RT 12/27/23 06:50 Ordered MDM Narrative Medical Decision Narrative: In summary, this 63-year-old male with comorbidities as described in HPI presents to the emergency department today with reported hypoxia from half-way however patient was never hypoxic with EMS or in the ER. Patient does report cough, no chest pain, reports right upper quadrant abdominal pain. On initial evaluation patient is hemodynamically stable, afebrile, he was saturating 94% on room air but was placed back on his home nasal cannula flow of 3 L, abdomen is soft without any tenderness, rebound, or guarding, lungs demonstrate rhonchi bilaterally without wheezing, no peripheral edema, patient is oriented to self and location but disoriented to year which reportedly is his baseline. Differential diagnosis includes but is not limited to ACS, PE, pneumonia, pneumothorax, viral syndrome, hypoxia, hypercarbia, noncompliance with BiPAP, half-way also stated patient received cough medicine, they report he received 10 mL of guaifenesin at 5:30 AM, however they reported to EMS that he received 2 doses. Possible medication side effect. Based on these concerns, I ordered serum labs, cardiac workup, CTA PE, CT imaging of the abdomen. ECG personally interpreted demonstrates normal sinus rhythm, rate 76, normal axis, normal [place] and QTc, no STEMI. Labs and imaging pending at the time of physician handoff, patient handed off to Dr. Morgan for further management and disposition pending workup.
[2023-12-27 07:01] LABS: VBG Base Excess 6.4 mmol/L (-2.4-2.3); VBG HCO3 32.2 mmol/L (23-30); VBG Oxygen Saturation 77.4 % (50-70); VBG PCO2 61.5 mmol/L (35-51); VBG PH 7.34 mmol/L (7.31-7.41); VBG PO2 41.3 mmol/L (28-40); VBG Total CO2 34.1 mmol/L (23-27)
[2023-12-27 07:02] LABS: Lactate Venous 2.2 mmol/L (0.4-2.0)
[2023-12-27 07:05] LABS: Basophils # 0.1 K/mm3 (0-0.2); Basophils % 0.6 % (0.1-2.0); Eosinophils # 0.4 K/mm3 (0.0-0.4); Eosinophils % 3.1 % (0.1-12.0); Hematocrit 37.7 % (42.0-52.0); Hemoglobin 12.6 g/dL (14.1-18.0); Lymphocytes # 1.7 K/mm3 (0.7-4.5); Lymphocytes % 12.6 % (10-50); Mean Corpuscular HGB Conc 33.3 g/dL (31.8-35.4); Mean Corpuscular Hemoglobin 34.5 pg (27.0-31.2); Mean Corpuscular Volume 103.5 fl (80-94); Mean Platelet Volume 7.8 fl (7.4-10.4); Monocytes # 0.6 K/mm3 (0.1-1.0); Monocytes % 4.3 % (1.7-9.3); Neutrophils # 10.8 K/mm3 (1.8-7.8); Neutrophils % 79.4 % (37.0-80.0); Platelet Count 267 K/mm3 (142-424); Red Blood Count 3.65 M/mm3 (4.60-6.20); Red Cell Distribution Width 14.1 % (11.5-17.5); White Blood Count 13.6 K/mm3 (4.8-10.8)
--- NOTE | 2023-12-27 07:08 | ED_ITS ---
Discharge Plan Disposition Patient Disposition: Home, Self-Care Condition: Fair Prescriptions Prescriptions: No Action atorvastatin [Lipitor] 40 mg tablet 40 mg PO HS losartan [Cozaar] 25 mg tablet 25 mg PO DAILY magnesium oxide 400 mg capsule 400 mg PO HS tamsulosin [Flomax] 0.4 mg capsule 0.4 mg PO DAILY metformin 500 mg tablet 500 mg PO BIDWMEAL Tradjenta 5 mg tablet 5 mg PO DAILY Spiriva Respimat 1.25 mcg/actuation mist 2 puff inhalation DAILY Acid Gone Antacid 95-358 mg/15 mL suspension 30 ml PO Q4HP PRN (Reason: Acid Reflux) polyethylene glycol 3350 17 gram powder in packet 17 g PO DAILY bisacodyl 5 mg tablet 10 mg PO DAILYP PRN (Reason: Constipation) duloxetine 30 mg capsule,delayed release(DR/EC) 30 mg PO DAILY isosorbide mononitrate 30 mg tablet extended release 24 hr 30 mg PO DAILY bisacodyl 10 mg suppository 10 mg NV DAILYP PRN (Reason: Constipation) insulin lispro protamin-lispro [Humalog Mix 75-25 KwikPen] 100 unit/mL (75-25) insulin pen 17 unit SQ BID insulin glargine [Lantus Solostar U-100 Insulin] 100 unit/mL (3 mL) insulin pen 15 unit SQ HS Qty: 15 5RF coQ10 (ubiquinol) [Qunol Pranav CoQ10] 100 mg capsule 100 mg PO BID Qty: 180 3RF tramadol 50 mg tablet 100 mg PO Q6H Qty: 240 2RF gabapentin 400 mg capsule 400 mg PO TID Qty: 90 5RF loperamide 2 MG capsule 2 mg PO Q4HP PRN (Reason: Diarrhea) aspirin 81 MG tablet,chewable 81 mg PO DAILY docusate calcium 240 MG capsule 240 mg PO DAILYP PRN (Reason: Constipation) lactulose 10 GM/15 ML solution 30 ml PO DAILYP PRN (Reason: Constipation) sennosides-docusate sodium [Senexon-S] 8.6-50 mg Tablet 2 tab PO BID cyanocobalamin (vitamin B-12) [Vitamin B-12] 250 mcg Tablet 750 mcg PO DAILY Vraylar 3 mg Capsule 3 mg PO DAILY furosemide [Lasix] 40 mg tablet 40 mg PO DAILY spironolactone 50 mg tablet 50 mg PO DAILY levetiracetam [Keppra] 1,000 mg tablet 1,000 mg PO BID levofloxacin 750 mg tablet 750 mg PO DAILY 3 Days Qty: 3 0RF acetaminophen 500 MG tablet 500 mg PO Q4HP PRN (Reason: Fever Or Pain) omeprazole 20 MG capsule,delayed release(DR/EC) 20 mg PO Q48H levothyroxine 50 mcg tablet 50 mcg PO DAILYDM duloxetine 60 mg capsule,delayed release(DR/EC) 60 mg PO DAILY trazodone 100 MG tablet 100 mg PO HS guaifenesin [Diabetic Tussin EX] 100 mg/5 mL Liquid 200 mg PO Q4HP PRN (Reason: Cough) albuterol sulfate 90 mcg/actuation HFA aerosol inhaler 2 inh IH QIDP PRN (Reason: Shortness Of Breath Or Wheezing) folic acid 800 mcg tablet 800 mcg PO DAILY multivitamin with folic acid [Tab-A-Laron] 400 mcg Tablet 1 tab PO DAILY Referrals Follow up/Referrals: Sandrita Morgan MD [Emergency Provider] - See instructions Connor Plunkett MD [Staff Physician] - See instructions Provider,ReferralMD [Primary Care Provider] - See instructions Activity Restrictions/Add. Instructions Additional Instructions/Restrictions: It is crucial that you wear your BiPAP because you will become hypoxic if you do not wear it whenever you fall asleep. We also recommend following up with urology due to thickening of your bladder and your primary care physician to continue to monitor a lung lesion noted on CT scans. Return to the emergency department for any new or worsening symptoms including worsening pain or persistent hypoxia despite wearing BiPAP. Your workup was also very consistent with constipation we recommend taking MiraLAX daily. Clinical Impressions Clinical Impression: Constipation, Apnea, sleep, Bladder wall thickening Print Language Print Language: [place] Discharge ED Provider: Sandrita Morgan General Adult HPI General Chief complaint: Upper Respiratory Infection Stated complaint: productive cough, low O2 sat Time Seen by Provider: 12/27/23 06:32 Mode of Arrival: EMS Limitations: No Limitations Description of Symptoms (Recalled from ER Triage Doc. by RN): Pt to ED from [facility] [place]. Gracia From [place] reports that pt has had a productive cough with yellow sputum most of the night , wheezing, and is now 80-84% on his 3L NC that he always wears. O2 was not titrated up. retirement also reports that pt is ordered to wear BIPAP, but he refuses and the staff does not know where it's at. Gracia reports that she gave pt cough medicine around 5:30 this morning which did not help his symptoms. She also reports that pts FSBS was 212 this morning so he recieved 15units of long acting insulin. FS 127 upon arrival. LS are clear, pt reports cough, and RUQ abdominal pain. belly is soft and non-tender with upon palpation. Related Data Home Medications ?Medication ?Instructions ?Recorded ?Confirmed atorvastatin 40 mg tablet (Lipitor) 40 mg PO HS Cholesterol 03/24/17 12/16/23 isosorbide mononitrate 30 mg 30 mg PO DAILY Chest Pain 04/11/17 12/16/23 tablet,extended release 24 hr magnesium oxide 400 mg PO HS Supplement 09/30/17 12/16/23 acetaminophen 500 mg tablet 500 mg PO Q4HP PRN Fever Or Pain 11/10/17 12/16/23 omeprazole 20 mg capsule,delayed 20 mg PO Q48H Acid Reflux 11/10/17 12/16/23 release losartan 25 mg tablet (Cozaar) 25 mg PO DAILY High Blood Pressure 09/29/18 12/16/23 aspirin 81 mg chewable tablet 81 mg PO DAILY Heart Disease 01/25/19 12/16/23 loperamide 2 mg capsule 2 mg PO Q4HP PRN Diarrhea 01/25/19 12/16/23 trazodone 100 mg tablet 100 mg PO HS Insomnia 02/24/20 12/16/23 tamsulosin 0.4 mg capsule (Flomax) 0.4 mg PO DAILY URINARY SYMPTOMS 04/24/20 12/16/23 metformin 500 mg tablet 500 mg PO BIDWMEAL Diabetes 10/30/20 12/16/23 docusate calcium 240 mg capsule 240 mg PO DAILYP PRN Constipation 02/09/21 12/16/23 lactulose 10 gram/15 mL oral 30 ml PO DAILYP PRN Constipation 02/09/21 12/16/23 solution duloxetine 60 mg capsule,delayed 60 mg PO DAILY MOOD 10/17/21 12/16/23 release linagliptin 5 mg tablet (Tradjenta) 5 mg PO DAILY Diabetes 10/17/21 12/16/23 tiotropium bromide 1.25 2 puff inhalation DAILY Copd 10/17/21 12/16/23 mcg/actuation mist for inhalation (Spiriva Respimat) aluminum hydrox-magnesium carb 95 30 ml PO Q4HP PRN Acid Reflux 11/21/22 12/16/23 mg-358 mg/15 mL oral suspension (Acid Gone Antacid) bisacodyl 5 mg tablet 10 mg PO DAILYP PRN Constipation 11/21/22 12/16/23 duloxetine 30 mg capsule,delayed 30 mg PO DAILY MOOD 11/21/22 12/16/23 release polyethylene glycol 3350 17 gram 17 g PO DAILY Constipation 11/21/22 12/16/23 oral powder packet cariprazine 3 mg capsule (Vraylar) 3 mg PO DAILY MOOD 01/08/23 12/16/23 cyanocobalamin (vitamin B-12) 250 750 mcg PO DAILY Supplement 01/08/23 12/16/23 mcg tablet (Vitamin B-12) sennosides 8.6 mg-docusate sodium 2 tab PO BID Constipation 01/08/23 12/16/23 50 mg tablet (Senexon-S) bisacodyl 10 mg rectal suppository 10 mg NV DAILYP PRN Constipation 01/28/23 12/16/23 insulin lispro protamine-lispro 17 unit SQ BID Diabetes 01/29/23 12/16/23 100 unit/mL (75-25) subcutaneous pen (Humalog Mix 75-25 KwikPen) albuterol sulfate 90 mcg/actuation 2 inh inhalation QIDP PRN 03/10/23 12/16/23 aerosol inhaler Shortness Of Breath Or Wheezing folic acid 800 mcg tablet 800 mcg PO DAILY Supplement 03/10/23 12/16/23 guaifenesin 100 mg/5 mL oral 200 mg PO Q4HP PRN Cough 03/10/23 12/16/23 liquid (Diabetic Tussin EX) multivitamin with folic acid 400 1 tab PO DAILY Supplement 03/10/23 12/16/23 mcg tablet (Tab-A-Laron) furosemide 40 mg tablet (Lasix) 40 mg PO DAILY Fluid 05/01/23 12/16/23 levetiracetam 1,000 mg tablet 1,000 mg PO BID SEIZURES 05/01/23 12/16/23 (Keppra) spironolactone 50 mg tablet 50 mg PO DAILY Fluid 05/01/23 12/16/23 levothyroxine 50 mcg tablet 50 mcg PO DAILYDM THYROID 05/26/23 12/16/23 Previous Rx's ?Medication ?Instructions ?Recorded levofloxacin 750 mg tablet 750 mg PO DAILY 3 days #3 tabs 05/02/23 insulin glargine 100 unit/mL (3 15 unit (0.15 mL) SQ HS #15 mL 07/08/23 mL) subcutaneous pen (Lantus Solostar U-100 Insulin) coQ10 (ubiquinol) 100 mg capsule 100 mg PO BID #180 caps 07/16/23 (Qunol Pranav CoQ10) tramadol 50 mg tablet 100 mg (2 x 50 mg) PO Q6H pain 10/28/23 #240 tabs gabapentin 400 mg capsule 400 mg PO TID NERVE PAIN #90 caps 11/17/23 Allergies Allergy/AdvReac Type Severity Reaction Status Date / Time morphine [MORPHINE] Allergy Mild HURTS Verified 12/16/23 15:15 STOMACH nitroglycerin AdvReac Mild Nausea [facility]16[facility]23 [facility] Dis[facility]: The information contained in this section may have been updated after the patient was seen, as this information can be updated by other users. Medical History Schizoaffective disorder HLD (hyperlipidemia) Debility Diabetes mellitus Coronary arteriosclerosis in [place] artery Diverticulosis of large intestine without perforation or abscess without bleeding Generalized muscle weakness Other specified arthritis, multiple sites Primary osteoarthritis of right knee Typical angina RAJAN (obstructive sleep apnea) BPH (benign prostatic hyperplasia) COPD (chronic obstructive pulmonary disease) Acute respiratory failure with hypoxia and hypercarbia Depression Anxiety Hypothyroid GERD (gastroesophageal reflux disease) Seizure Right lower lobe pneumonia Bronchomalacia Pulmonary emphysema Renal insufficiency Chronic subdural hematoma Intolerance to BiPAP/CPAP Edema Renal lesion Celiac artery stenosis Chronic heart failure with preserved ejection fraction (HFpEF) Heart failure, NYHA class 2 Extreme obesity 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 Obesity, Class II, BMI 35-39.9, isolated (see actual BMI) Impingement syndrome of both shoulders 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 Osteopenia Renal insufficiency Anemia HHD (hypertensive heart disease) Subdural hematoma Surgical History H/O heart artery stent H/O cardiac catheterization History of carpal tunnel release History of arthroscopy of shoulder Family History Other Cancer Diabetes Social History Smoking Status: Unknown if ever smoked alcohol intake: never substance use type: denies use current occupational status: disabled Travel in the last 8 weeks: None caregiver/support person: Yes household members: caregiver housing: [facility] caffeine: No Other Medical History Have you received the Flu Vaccine for this season: No Have you received the Pneumonia Vaccine: No ROS Obtained: Yes All systems reviewed & no additional complaints except as documented Physical Exam General General appearance: alert and in no apparent distress Respiratory Respiratory exam: Present respiratory distress; Absent accessory muscle use Cardiovascular Cardiovascular exam: Present regular rate and normal rhythm Neurological Exam Neurological exam: Present alert (Sleepier than expected but arousable with conversation) and oriented X3 Medical Decision Making Medical Records Screening: Per USPSTF and CDC recommendations, given the prevalence of disease in our region, it is our hospital?s policy to screen for HIV and viral Hepatitis for all patients aged 18 and over and those with ongoing risk factors. Gaudencio Inquiry Pt receiving controlled substance: No Vital Signs: 12/27/23 06:31 12/27/23 07:00 12/27/23 07:30 Temperature 98.2 F Temperature Source Oral Pulse Rate 72 69 Pulse Rate [Apical] 75 Respiratory Rate 16 Blood Pressure 119/73 137/67 Blood Pressure [Right Arm] 136/75 Blood Pressure Mean [Right Arm] 95 Blood Pressure Source [Right Arm] Automatic Cuff Blood Pressure Position [Right Arm] Sitting 02 Sat by Pulse Oximetry 98 96 98 Oxygen Delivery Method Nasal Cannula Nasal Cannula Nasal Cannula Oxygen Flow Rate (LPM) 3 3 12/27/23 07:46 12/27/23 08:40 12/27/23 08:40 Temperature 98.5 F Temperature Source Oral Pulse Rate 70 71 72 Pulse Rate [Apical] Respiratory Rate 12 17 12 Blood Pressure 126/72 112/65 112/65 Blood Pressure [Right Arm] Blood Pressure Mean [Right Arm] Blood Pressure Source [Right Arm] Blood Pressure Position [Right Arm] 02 Sat by Pulse Oximetry 98 99 99 Oxygen Delivery Method Nasal Cannula Nasal Cannula Nasal Cannula Oxygen Flow Rate (LPM) 3 3 12/27/23 09:01 12/27/23 09:30 12/27/23 10:00 Temperature Temperature Source Pulse Rate 66 66 66 Pulse Rate [Apical] Respiratory Rate 15 17 14 Blood Pressure 107/54 L 119/60 112/74 Blood Pressure [Right Arm] Blood Pressure Mean [Right Arm] Blood Pressure Source [Right Arm] Blood Pressure Position [Right Arm] 02 Sat by Pulse Oximetry 92 L 98 88 L Oxygen Delivery Method Nasal Cannula Room Air Nasal Cannula Oxygen Flow Rate (LPM) 12/27/23 10:30 12/27/23 11:00 Temperature Temperature Source Pulse Rate 68 Pulse Rate [Apical] Respiratory Rate 18 15 Blood Pressure 122/68 101/62 L Blood Pressure [Right Arm] Blood Pressure Mean [Right Arm] Blood Pressure Source [Right Arm] Blood Pressure Position [Right Arm] 02 Sat by Pulse Oximetry 98 Oxygen Delivery Method Simple Mask Oxygen Flow Rate (LPM) Lab Data Lab Results 12/27/23 06:40: WBC 13.6 H, RBC 3.65 L, Hgb 12.6 L, Hct 37.7 L, MCV 103.5 H, MCH 34.5 H, MCHC 33.3, RDW 14.1, Plt Count 267, MPV 7.8, Neut % (Auto) 79.4, Lymph % (Auto) 12.6, [place] % (Auto) 4.3, Eos % (Auto) 3.1, Baso % (Auto) 0.6, Neut # (Auto) 10.8 H, Lymph # (Auto) 1.7, [place] # (Auto) 0.6, Eos # (Auto) 0.4, Baso # (Auto) 0.1, PT 9.7 L, INR 0.85 L, Sodium 139, Potassium 4.7, Chloride 102, Carbon Dioxide 29, Anion Gap 12.7, BUN 14, Creatinine 1.00, Estimated Creat Clear 87, Estimated GFR 75, Est GFR ( Amer) 91, Glucose 118 H, Calcium 8.8, Total Bilirubin 0.9, AST 44, ALT 18, Alkaline Phosphatase 64, Troponin I < 0.01, Total Protein 7.9, Albumin 4.0, Globulin 3.9 H, Albumin/Globulin Ratio 1.0 L, HIV 1&2 Antibody Rapid Nonreactive 12/27/23 06:50: VBG pH 7.34, VBG pCO2 61.5 H, VBG pO2 41.3 H, VBG HCO3 32.2 H, V BG Total CO2 34.1 H, VBG O2 Saturation 77.4 H, VBG Base Excess 6.4 H, VBG Lactic Acid 2.2 H 12/27/23 08:00: Lactate 1.0 12/27/23 09:40: Urine Color Yellow, Urine Appearance Clear, Urine pH 6.0, Ur Specific [place] 1.010, Urine Glucose (UA) Negative, Urine Ketones Negative, Urine Bilirubin Negative, Urine Urobilinogen 0.2, Urine RBC Occasional, Urine WBC 20-50, Ur Squamous Epith Cells 5-10, Urine Bacteria Trace 12/27/23 : NT-Pro-B Natriuret Pep < 20.0, Lipase 162 12/27/23 06:40 12/27/23 06:40 Orders (Tests/Meds): ED MEDICATIONS Generic Name Dose Route Start Last Admin Trade Name Freq PRN Reason Stop Dose Admin Sodium Chloride 10 ml 12/27/23 08:16 12/27/23 08:17 Sodium Chloride 0.9% 10ml Syr (Rad Only) IV 01/26/24 08:15 10 ml NEEDED PRN Administration Maintain IV Site Discontinued Medications Generic Name Dose Route Start Last Admin Trade Name Freq PRN Reason Stop Dose Admin Acetaminophen 1,000 mg 12/27/23 08:43 12/27/23 08:49 Acetaminophen 500mg Tab PO 12/27/23 08:44 1,000 mg ONCE ONE Administration Iopamidol 80 ml 12/27/23 08:16 12/27/23 08:17 Iopamidol-370 (76%);100ml Bottle IV 12/27/23 08:17 80 ml ONCE ONE Administration Sodium Chloride 50 ml 12/27/23 08:16 12/27/23 08:17 0.9 % Sodium Chloride 50 Ml Vial IV 12/27/23 08:17 50 ml ONCE ONE Administration ORDERS Category Date Time Status CT abdomen pelvis w con Stat Cat Scan 12/27/23 06:[address] angio chest PE protocol Stat Cat Scan 12/27/23 06:37 Completed Complete Blood Count Auto Diff Stat Lab 12/27/23 06:40 Completed Comprehensive Metabolic Panel Stat Lab 12/27/23 06:40 Completed HIV (1&2) Antibody Rapid Stat Lab 12/27/23 06:40 Completed Hep C Ab with Reflex to RNA Stat Lab 12/27/23 06:40 Received Lactic Acid Follow Up (RFLX 1) Stat Lab 12/27/23 11:02 Ordered Lactic Acid Stat Lab 12/27/23 08:00 Completed Lipase Stat Lab 12/27/23 Completed NT Pro Brain Natriuretic Pep. Stat Lab 12/27/23 Completed POC Glucose,Bedside Stat Lab 12/27/23 06:41 Ordered Prothrombin Time INR Stat Lab 12/27/23 06:40 Completed Troponin I Stat Lab 12/27/23 06:40 Completed UA/RFX Microscopic Stat Lab 12/27/23 09:40 Completed Urine Microscopic Stat Lab 12/27/23 09:40 Completed Urine Culture Stat Micro 12/27/23 09:40 Received VBG [Venous Blood Gas] Stat RT 12/27/23 06:50 Completed HEART Score History (anamnesis): Slightly suspicious ECG: Non-specific disturbance Age: 45-65 years Risk factors: 1-2 risk factors Troponin: </= normal limit HEART Score: 3 Medical Decision Narrative: At NING from Dr. Peoples pending laboratory workup, CT scans and Heart score calculation.] Laboratory workup significant for mild leukocytosis, stable anemia, glucose appropriate, normal initial troponin, compensated mild hypercarbia likely associated with untreated sleep apnea because [facility] unsure of where bipap machine is located. I had an interactive discussion with nursing facility. Located BIPAP machine. Pt notes he does not like to wear it but likely etiology of pt's hypoxia when sleeping. During observation pt desaturated to 77% while sleeping and mouth breathing that resolved with awakening. Recommended wearing BIPAP especially while sleeping to avoid hypoxia. CT independently reviewed and significant for no saddle PE and no focal consolidations, gaseous distension without transition point with stool burden in descending colon.CT per radiology unable to visualize the appendix. On repeat evaluation and repeat abdominal exam patient has no abdominal tenderness, soft, non distended and says it feels like you're tickling me . Per radiology urinary bladder thickening so UA was ordered. Based on nontender and benign abdominal exam lower suspicion for appendicitis but based off of CT scan not definitively excluded. UA with pyuria trace bacteria nitrate negative. Urine sent for culture will not treat at this time. Patient was given referral to urology for known renal mass and bladder wall thickening. CT scan also remarkable for previously found lung mass. Recommended continued outpatient follow-up with PCP. Patient remained stable from respiratory standpoint on 3 L nasal cannula. Remains at baseline mental status tolerating p.o. and resolved abdominal pain. Deemed appropriate for discharge back to nursing facility stressed the importance of using BiPAP. Critical Care Critical Care Time Critical Care Time: No
[2023-12-27 07:21] LABS: INR 0.85 (0.9-1.1); Prothrombin Time 9.7 seconds (10.1-12.5)
--- NOTE | 2023-12-27 07:30 | PC.NURSE ---
I rounded on the pt, he is sleeping at this time. call toth in reach.
[2023-12-27 07:46] LABS: Alanine Aminotransferase 18 U/L (12-78); Alkaline Phosphatase 64 U/L (38-126); Anion Gap 12.7 mEq/L (5-15); Aspartate Amino Transferase 44 U/L (17-59); Bilirubin,Total 0.9 mg/dl (0.2-1.3); Blood Urea Nitrogen 14 mg/dl (9-20); Calcium 8.8 mg/dl (8.4-10.2); Carbon Dioxide 29 mmol/L (22.0-30.0); Chloride 102 mmol/L (98-107); Creatinine Clearance Estimated 87 mL/min (50-200); Estimated Glomerular Filt Rate 75 ml/min (>60); GFR (African American) 91 ML/MIN (>60); Globulin 3.9 g/dL (1.3-3.2); Glucose 118 mg/dl (74-100); Potassium 4.7 mmoL/L (3.5-5.1); Sodium 139 mmol/L (136-145); Total Protein,Serum 7.9 g/dl (6.3-8.2)
--- NOTE | 2023-12-27 08:02 | PC.NURSE ---
pt to CT scan via stretcher
[2023-12-27 08:04] LABS: Troponin I < 0.01 ng/ml (0.00-0.034)
[2023-12-27 08:17] LABS: Lipase 162 U/L (23-300)
[2023-12-27] MEDS: SODIUM CHLORIDE 0.9% 10ML SYR (RAD ONLY) 10 ML IV (08:17)
[2023-12-27] MEDS: IOPAMIDOL-370 (76%);100ML BOTTLE 80 ML IV (08:17)
[2023-12-27] MEDS: 0.9 % SODIUM CHLORIDE 50 ML VIAL IV (08:17)
[2023-12-27 08:27] LABS: NT Pro Brain Natriuretic Pep. < 20.0 pg/mL (0-125)
--- NOTE | 2023-12-27 08:42 | PC.NURSE ---
I rounded on the pt and pulled him up in the bed. Pt states his abd pain is 8/10 and requests something for the pain. I informed Dr. Kan and she is bedside talking to him. I took him a warm blanket because he was cold, no other needs voiced. call toth in reach.
[2023-12-27] MEDS: ACETAMINOPHEN 500MG TAB 1000 MG PO (08:49)
--- NOTE | 2023-12-27 08:58 | PC.NURSE ---
call made to [facility] to check on status of pts bipap. states that pts needs to wear bipap while sleeping. report given to TRN about possibility of bipap being lost of assisted. mitali at [facility] states that machine is in working condition in pts room.
[2023-12-27 09:46] LABS: HIV (1&2) Antibody Rapid NONREACTIVE (NONREACTIVE)
[2023-12-27 10:09] LABS: Appearance,Urine CLEAR (Clear); Bilirubin,Urine Negative (Negative); Blood, Urine 1+ (Negative); Color,Urine YELLOW (Yellow); Glucose,Urine (UA) Negative (Negative); Ketones,Urine Negative (Negative); Leukocyte Esterase,Urine 1+ (Negative); Nitrate,Urine NEGATIVE (Negative); Protein,Urine NEGATIVE (Negative); Urobilinogen,Urine 0.2 EU/dl (0.2)
[2023-12-27 10:20] LABS: Microscopic, Urine URINE MICROSCOPIC (MICROSCOPIC)
[2023-12-27 10:41] LABS: Bacteria,Urine Trace /lpf; RBC,Urine Occasional #/hpf (0-3); WBC,Urine 20-50 #/hpf (0-3)
[2023-12-27 11:02] LABS: Reflex Lactic Add Lactic Reflex
--- NOTE | 2023-12-27 11:51 | PC.NURSE ---
called kelly jamsine at [facility].
--- NOTE | 2023-12-27 12:00 | PC.NURSE ---
call made to [facility] ems service for pt transport back to [facility]
[2023-12-28 11:09] LABS: HCV Ab Non Reactive (Non Reactive)
== END 2023-12-27 12:25 | disposition home or self-care (01) ==
PROVIDERS: Emergency Medicine; Emergency Provider Student in an Organized Health Care Education/Training Program
DX: K59.00 Constipation, unspecified (principal); N32.89 Other specified disorders of bladder; G47.30 Sleep apnea, unspecified; R10.11 Right upper quadrant pain; R05.9 Cough, unspecified; R06.02 Shortness of breath
CPT/HCPCS: 71275; 74177; 80053; 81015; 82803; 83605; 83690; 83880; 84484; 85025; 85610; 86803; 87086; 87389; 93005; 99285; Q9967

== ENCOUNTER 2024-03-26 13:06 | Outpatient (CLI) | payer MEDICARE, MEDICAID, SELFPAY ==
--- NOTE | 2024-03-26 13:14 | US_ITS ---
FINAL REPORT CLINICAL HISTORY: URINARY RETENTION -- CYST FINDINGS: Limited sonographic images of the bladder were obtained. The bladder filled measures 610 mL, mildly distended which is greater than typically seen. Patient was unable to void. No obvious bladder mass identified. IMPRESSION: Patient unable to void to assess for postvoid residual. Reviewed, Interpreted and Dictated by Rachel Orta MD Transcribed by Yarelis Chappell Authenticated and . [facility]
== END 2024-03-26 23:59 | disposition home or self-care (01) ==
LOC: RAD 13:07
PROVIDERS: PCP Family Medicine; Visit Provider Urology
DX: N28.1 Cyst of kidney, acquired (principal)
CPT/HCPCS: 76857

== ENCOUNTER 2024-04-08 16:21 | Outpatient (CLI) | payer MEDICARE, MEDICAID, SELFPAY ==
[2024-04-08 16:46] LABS: Coronavirus 19, PCR Not Detected (NotDetected); Influenza A, PCR Not Detected (NotDetected); Influenza B, PCR Not Detected (NotDetected)
== END 2024-04-08 23:59 | disposition home or self-care (01) ==
LOC: LAB.DROPOF 16:26
PROVIDERS: PCP Family Medicine; Visit Provider Family Medicine
DX: A41.89 Other specified sepsis (principal)
CPT/HCPCS: 87636

== ENCOUNTER 2024-04-09 11:15 | Inpatient (IN) | payer MEDICARE, MEDICAID, SELFPAY ==
[2024-04-09] VITALS (42 sets, daily range): BP systolic 58–155; BP diastolic 36–79; PULSE 58–122; RESP 16–51; TEMP 36.6–37.5; O2SAT 87–100; BMI 37.5
--- NOTE | 2024-04-09 11:23 | ECG_ITS ---
APPROVED REPORT Exam: Resting ECG HR:108 bpm ECG Measurements Heart Rate 108 AXES QRSd 101 QRS 72 QT 409 T 61 QTc 473 Conclusion SUPRAVENTRICULAR TACHYCARDIA MODERATE T-WAVE ABNORMALITY, CONSIDER LATERAL ISCHEMIA [-0.1+ mV T-WAVE IN I/aVL/V5/V6] ABNORMAL ECG UNCONFIRMED REPORT Electronically signed by : CHRISTINE SMITH, 04/10/2024 06:26:49
--- NOTE | 2024-04-09 11:31 | XR_ITS ---
FINAL REPORT CLINICAL HISTORY: ams, fever tachy COMPARISON: 05/01/2023 FINDINGS: A portable view of the chest was obtained. Cardiac and mediastinal silhouettes are within normal limits. Lung volumes are low. There is no acute pulmonary abnormality. There is no pleural effusion or pneumothorax. IMPRESSION: No acute process on this portable exam. Reviewed, Interpreted and Dictated by Minoo Solis MD Transcribed by Tia Mandel Authenticated and . [facility]
[2024-04-09 11:38] LABS: Microscopic, Urine URINE MICROSCOPIC (MICROSCOPIC)
[2024-04-09 11:39] LABS: VBG Base Excess 2.4 mmol/L (-2.4-2.3); VBG HCO3 26.6 mmol/L (23-30); VBG Oxygen Saturation 93.3 % (50-70); VBG PCO2 40.4 mmol/L (35-51); VBG PH 7.44 mmol/L (7.31-7.41); VBG PO2 66.3 mmol/L (28-40); VBG Total CO2 27.9 mmol/L (23-27)
[2024-04-09 11:41] LABS: Appearance,Urine CLOUDY (Clear); Bilirubin,Urine Negative (Negative); Blood, Urine 2+ (Negative); Color,Urine YELLOW (Yellow); Glucose,Urine (UA) Negative (Negative); Ketones,Urine Negative (Negative); Leukocyte Esterase,Urine 2+ (Negative); Nitrate,Urine Negative (Negative); Protein,Urine 2+ (Negative); Specific Gravity, Urine >= 1.030 (1.005-1.030); Urobilinogen,Urine 0.2 EU/dl (0.2)
[2024-04-09 11:42] LABS: Basophils # 0.1 K/mm3 (0-0.2); Basophils % 0.6 % (0.1-2.0); Eosinophils # 0.1 K/mm3 (0.0-0.4); Eosinophils % 0.5 % (0.1-12.0); Hemoglobin 13.7 g/dL (14.1-18.0); Lymphocytes # 1.8 K/mm3 (0.7-4.5); Lymphocytes % 13.9 % (10-50); Mean Corpuscular HGB Conc 30.4 g/dL (31.8-35.4); Mean Corpuscular Hemoglobin 32.6 pg (27.0-31.2); Mean Corpuscular Volume 107.1 fl (80-94); Monocytes # 1.1 K/mm3 (0.1-1.0); Monocytes % 8.1 % (1.7-9.3); Neutrophils # 10.1 K/mm3 (1.8-7.8); Neutrophils % 75.8 % (37.0-80.0); Platelet Count 291 K/mm3 (142-424); Red Cell Distribution Width 13.8 % (11.5-17.5); White Blood Count 13.3 K/mm3 (4.8-10.8)
--- NOTE | 2024-04-09 11:42 | PC.NURSE ---
XR AT BEDSIDE
[2024-04-09] MEDS: PIPERACILLIN/TAZO 4.5 GM in 0.9 % SODIUM CHLORIDE 100 ML IV ×2 (11:47→17:22)
[2024-04-09] MEDS: LACTATED RINGERS 1000ML 1,980 ML 990 ML IV (11:49)
--- NOTE | 2024-04-09 11:52 | ED_ITS ---
Discharge Plan Disposition Patient Disposition: Admitted Chief Complaint: Altered Mental Status Prescriptions Prescriptions: No Action atorvastatin [Lipitor] 40 mg tablet 40 mg PO HS losartan [Cozaar] 25 mg tablet 25 mg PO DAILY magnesium oxide 400 mg capsule 400 mg PO HS tamsulosin [Flomax] 0.4 mg capsule 0.4 mg PO DAILY Qty: 30 3RF metformin 500 mg tablet 500 mg PO BIDWMEAL Tradjenta 5 mg tablet 5 mg PO DAILY Spiriva Respimat 1.25 mcg/actuation mist 2 puff inhalation DAILY Acid Gone Antacid 95-358 mg/15 mL suspension 30 ml PO Q4HP PRN (Reason: Acid Reflux) polyethylene glycol 3350 17 gram powder in packet 17 g PO DAILY bisacodyl 5 mg tablet 10 mg PO DAILYP PRN (Reason: Constipation) duloxetine 30 mg capsule,delayed release(DR/EC) 30 mg PO DAILY Vraylar 1.5 mg capsule 1.5 mg PO DAILY isosorbide mononitrate 30 mg tablet extended release 24 hr 30 mg PO DAILY bisacodyl 10 mg suppository 10 mg NV DAILYP PRN (Reason: Constipation) insulin glargine [Lantus Solostar U-100 Insulin] 100 unit/mL (3 mL) insulin pen 15 unit SQ HS Qty: 15 5RF coQ10 (ubiquinol) [Qunol Pranav CoQ10] 100 mg capsule 100 mg PO BID Qty: 180 3RF gabapentin 400 mg capsule 400 mg PO TID Qty: 90 5RF tramadol 50 mg tablet 100 mg PO Q6H Qty: 240 2RF insulin lispro protamin-lispro [Humalog Mix 75-25 KwikPen] 100 unit/mL (75-25) insulin pen 15 unit SQ QAM loperamide 2 MG capsule 2 mg PO Q4HP PRN (Reason: Diarrhea) aspirin 81 MG tablet,chewable 81 mg PO DAILY docusate calcium 240 MG capsule 240 mg PO DAILYP PRN (Reason: Constipation) lactulose 10 GM/15 ML solution 30 ml PO DAILYP PRN (Reason: Constipation) sennosides-docusate sodium [Senexon-S] 8.6-50 mg Tablet 2 tab PO BID cyanocobalamin (vitamin B-12) [Vitamin B-12] 250 mcg Tablet 750 mcg PO DAILY furosemide [Lasix] 40 mg tablet 40 mg PO DAILY spironolactone 50 mg tablet 50 mg PO DAILY levetiracetam [Keppra] 1,000 mg tablet 1,000 mg PO BID baclofen 10 mg Tablet 10 mg PO TID acetaminophen 500 MG tablet 500 mg PO Q4HP PRN (Reason: Fever Or Pain) omeprazole 20 MG capsule,delayed release(DR/EC) 20 mg PO Q48H levothyroxine 50 mcg tablet 50 mcg PO DAILYDM duloxetine 60 mg capsule,delayed release(DR/EC) 60 mg PO DAILY trazodone 100 MG tablet 100 mg PO HS guaifenesin [Diabetic Tussin EX] 100 mg/5 mL Liquid 200 mg PO Q4HP PRN (Reason: Cough) albuterol sulfate 90 mcg/actuation HFA aerosol inhaler 2 inh IH QIDP PRN (Reason: Shortness Of Breath Or Wheezing) folic acid 800 mcg tablet 800 mcg PO DAILY multivitamin with folic acid [Tab-A-Laron] 400 mcg Tablet 1 tab PO DAILY Clinical Impressions Clinical Impression: Septic shock, Acute UTI, TAURUS (acute kidney injury), Acute hypernatremia, Acute metabolic encephalopathy Instructions Patient Instructions: DI for Altered Mental Status Print Language Print Language: Bhutanese Discharge ED Provider: Eliseo Nunez General Adult HPI General Chief complaint: Altered Mental Status Stated complaint: AMS Time Seen by Provider: 04/09/24 11:25 Mode of Arrival: EMS Source of Information: Patient Limitations: No Limitations Description of Symptoms (Recalled from ER Triage Doc. by RN): pt presents to ED from [facility]. EMS report pt is normally alert and oriented. pt respondes minimally when spoken too. nurse at halfway reports pt has been acting different over the past two days. History of Present Illness HPI narrative: Please note that above description of symptoms, in this electronic medical record under categorization of recalled from ER triage doctor by RN are reflective of an initial nursing assessment, however, is not reflective of my full history and physical exam that was personally taken and clarified. Consequentially, this preceding description of symptoms, which may include the patient's categorized chief complaint in the EMR, do not reflect my personal clinical impression, and the ultimate description of history of present illness and patient stated complaints should be deferred to this section of the note. Unless stated otherwise or congruent with this section of the note, additional signs, symptoms, or incongruence should be interpreted as inaccurate with my clinical impression. Related Data Home Medications ?Medication ?Instructions ?Recorded ?Confirmed atorvastatin 40 mg tablet (Lipitor) 40 mg PO HS Cholesterol 03/24/17 04/09/24 isosorbide mononitrate 30 mg 30 mg PO DAILY Chest Pain 04/11/17 04/09/24 tablet,extended release 24 hr magnesium oxide 400 mg PO HS Supplement 09/30/17 04/09/24 acetaminophen 500 mg tablet 500 mg PO Q4HP PRN Fever Or Pain 11/10/17 04/09/24 omeprazole 20 mg capsule,delayed 20 mg PO Q48H Acid Reflux 11/10/17 04/09/24 release losartan 25 mg tablet (Cozaar) 25 mg PO DAILY High Blood Pressure 09/29/18 04/09/24 aspirin 81 mg chewable tablet 81 mg PO DAILY Heart Disease 01/25/19 04/09/24 loperamide 2 mg capsule 2 mg PO Q4HP PRN Diarrhea 01/25/19 04/09/24 trazodone 100 mg tablet 100 mg PO HS Insomnia 02/24/20 04/09/24 metformin 500 mg tablet 500 mg PO BIDWMEAL Diabetes 10/30/20 04/09/24 docusate calcium 240 mg capsule 240 mg PO DAILYP PRN Constipation 02/09/21 04/09/24 lactulose 10 gram/15 mL oral 30 ml PO DAILYP PRN Constipation 02/09/21 04/09/24 solution duloxetine 60 mg capsule,delayed 60 mg PO DAILY MOOD 10/17/21 04/09/24 release linagliptin 5 mg tablet (Tradjenta) 5 mg PO DAILY Diabetes 10/17/21 04/09/24 tiotropium bromide 1.25 2 puff inhalation DAILY Copd 10/17/21 04/09/24 mcg/actuation mist for inhalation (Spiriva Respimat) aluminum hydrox-magnesium carb 95 30 ml PO Q4HP PRN Acid Reflux 11/21/22 04/09/24 mg-358 mg/15 mL oral suspension (Acid Gone Antacid) bisacodyl 5 mg tablet 10 mg PO DAILYP PRN Constipation 11/21/22 04/09/24 duloxetine 30 mg capsule,delayed 30 mg PO DAILY MOOD 11/21/22 04/09/24 release polyethylene glycol 3350 17 gram 17 g PO DAILY Constipation 11/21/22 04/09/24 oral powder packet cyanocobalamin (vitamin B-12) 250 750 mcg PO DAILY Supplement 01/08/23 04/09/24 mcg tablet (Vitamin B-12) sennosides 8.6 mg-docusate sodium 2 tab PO BID Constipation 01/08/23 04/09/24 50 mg tablet (Senexon-S) bisacodyl 10 mg rectal suppository 10 mg NV DAILYP PRN Constipation 01/28/23 04/09/24 albuterol sulfate 90 mcg/actuation 2 inh inhalation QIDP PRN 03/10/23 04/09/24 aerosol inhaler Shortness Of Breath Or Wheezing folic acid 800 mcg tablet 800 mcg PO DAILY Supplement 03/10/23 04/09/24 guaifenesin 100 mg/5 mL oral 200 mg PO Q4HP PRN Cough 03/10/23 04/09/24 liquid (Diabetic Tussin EX) multivitamin with folic acid 400 1 tab PO DAILY Supplement 03/10/23 04/09/24 mcg tablet (Tab-A-Laron) furosemide 40 mg tablet (Lasix) 40 mg PO DAILY Fluid 05/01/23 04/09/24 levetiracetam 1,000 mg tablet 1,000 mg PO BID SEIZURES 05/01/23 04/09/24 (Keppra) spironolactone 50 mg tablet 50 mg PO DAILY Fluid 05/01/23 04/09/24 levothyroxine 50 mcg tablet 50 mcg PO DAILYDM THYROID 05/26/23 04/09/24 cariprazine 1.5 mg capsule 1.5 mg PO DAILY 02/24/24 04/09/24 (Vraylar) insulin lispro protamine-lispro 15 unit SQ QAM Diabetes 02/24/24 04/09/24 100 unit/mL (75-25) subcutaneous pen (Humalog Mix 75-25 KwikPen) baclofen 10 mg tablet 10 mg PO TID 04/09/24 04/09/24 Previous Rx's ?Medication ?Instructions ?Recorded insulin glargine 100 unit/mL (3 15 unit (0.15 mL) SQ HS #15 mL 07/08/23 mL) subcutaneous pen (Lantus Solostar U-100 Insulin) coQ10 (ubiquinol) 100 mg capsule 100 mg PO BID #180 caps 07/16/23 (Qunol Pranav CoQ10) gabapentin 400 mg capsule 400 mg PO TID NERVE PAIN #90 caps 11/17/23 tramadol 50 mg tablet 100 mg (2 x 50 mg) PO Q6H #240 tabs 02/01/24 tamsulosin 0.4 mg capsule (Flomax) 0.4 mg PO DAILY #30 caps 04/05/24 Allergies Allergy/AdvReac Type Severity Reaction Status Date / Time morphine (MORPHINE) Allergy Mild HURTS Verified 04/05/24 12:54 STOMACH nitroglycerin AdvReac Mild Nausea Verified 04/05/24 12:54 [facility] Disclaimer: The information contained in this section may have been updated after the patient was seen, as this information can be updated by other users. Medical History Cerebral palsy Poor dentition Renal cyst complex, CT December 2023 Schizoaffective disorder HLD (hyperlipidemia) Debility Diabetes mellitus Coronary arteriosclerosis in [place] artery Diverticulosis of large intestine without perforation or abscess without bleeding Generalized muscle weakness Other specified arthritis, multiple sites Primary osteoarthritis of right knee Typical angina RAJAN (obstructive sleep apnea) BPH (benign prostatic hyperplasia) COPD (chronic obstructive pulmonary disease) Acute respiratory failure with hypoxia and hypercarbia Depression Anxiety Hypothyroid GERD (gastroesophageal reflux disease) Seizure Right lower lobe pneumonia Bronchomalacia Pulmonary emphysema Renal insufficiency Chronic subdural hematoma Intolerance to BiPAP/CPAP Edema Renal lesion Celiac artery stenosis Chronic heart failure with preserved ejection fraction (HFpEF) Heart failure, NYHA class 2 Extreme obesity 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 Obesity, Class II, BMI 35-39.9, isolated (see actual BMI) Impingement syndrome of both shoulders 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 Osteopenia Renal insufficiency Anemia HHD (hypertensive heart disease) Subdural hematoma Surgical History H/O heart artery stent H/O cardiac catheterization History of carpal tunnel release History of arthroscopy of shoulder Family History Other Cancer Diabetes Social History Smoking Status: Former smoker tobacco type: cigarettes alcohol intake: never substance use type: denies use current occupational status: disabled Travel in the last 8 weeks: None caregiver/support person: Yes household members: caregiver housing: halfway caffeine: No Have you lived/traveled outside [place] in past 30 days?: No Contact w/someone who lives/traveled outside US past 30 days?: No Exposure to someone with infectious disease in past 14 days?: No Do you have a fever (greater than 100.4 F or 38 C)?: No Have you tested positive for COVID-19: No Exposed to someone with COVID-19 in past 14 days?: No Do you have a sore throat?: No Do you have a cough?: No Do you have any weakness?: No Do you have any diarrhea?: No Are you experiencing any unusual bleeding?: No Do you have any muscle aches/pain?: No Do you have any abdominal pain?: No Are you experiencing loss of taste or smell?: No Other Medical History Have you received the Flu Vaccine for this season: No Have you received the Pneumonia Vaccine: Yes (10/10/18) ROS Obtained: Yes unobtainable due to mental status Physical Exam General General appearance: alert Head Head exam: atraumatic and normocephalic Eye Eye exam: Present normal appearance, PERRL and EOMI ENT ENT exam: Present mucous membranes dry Neck Neck exam: Present normal inspection, full ROM and trachea midline Respiratory Respiratory exam: Present normal lung sounds bilaterally; Absent respiratory distress, wheezes, stridor, accessory muscle use or prolonged expiratory phase Cardiovascular Cardiovascular exam: Present normal rhythm, tachycardia and other (Pulses equal symmetric in upper and lower extremities) Abdominal Exam Abdominal exam: Present soft; Absent distention, tenderness or pulsatile mass Extremities Exam Extremities exam: Absent edema Neurological Exam Neurological exam: Present alert and other (GCS 6, protecting airway without issue. Not reacting); Absent oriented X3 or CN II-XII intact Skin Skin exam: Present warm and dry; Absent diaphoresis or erythema Medical Decision Making Medical Records Medical records reviewed: Yes I reviewed the patient's medical records. Screening: Per USPSTF and CDC recommendations, given the prevalence of disease in our region, it is our hospital?s policy to screen for HIV and viral Hepatitis for all patients aged 18 and over and those with ongoing risk factors. Gaudencio Inquiry Pt receiving controlled substance: No Gaudencio was queried for this patient: No Vital Signs: 04/09/24 11:15 04/09/24 11:19 04/09/24 11:30 Temperature 99.5 F Temperature Source Axillary Pulse Rate 122 H 106 H Pulse Rate [Left Radial] 109 H Respiratory Rate 19 Blood Pressure 115/71 94/64 L Blood Pressure [Right Arm] 115/71 Blood Pressure Mean 72 Blood Pressure Mean [Right Arm] 85 02 Sat by Pulse Oximetry 95 92 L 93 L Oxygen Delivery Method Room Air Nasal Cannula Nasal Cannula Oxygen Flow Rate (LPM) 2.5 2.5 04/09/24 12:15 04/09/24 12:30 04/09/24 12:39 Temperature Temperature Source Pulse Rate 100 H 106 H Pulse Rate [Left Radial] Respiratory Rate 24 26 H 24 Blood Pressure 93/60 L 72/45 L Blood Pressure [Right Arm] Blood Pressure Mean Blood Pressure Mean [Right Arm] 02 Sat by Pulse Oximetry 96 95 Oxygen Delivery Method Nasal Cannula Nasal Cannula Oxygen Flow Rate (LPM) 2 2 04/09/24 12:58 04/09/24 13:01 04/09/24 13:02 Temperature Temperature Source Pulse Rate 91 H 89 Pulse Rate [Left Radial] Respiratory Rate 28 H Blood Pressure 77/54 L 58/36 L 97/53 L Blood Pressure [Right Arm] Blood Pressure Mean 60 Blood Pressure Mean [Right Arm] 02 Sat by Pulse Oximetry 97 97 Oxygen Delivery Method Oxygen Flow Rate (LPM) 04/09/24 13:05 04/09/24 13:08 04/09/24 13:10 Temperature Temperature Source Pulse Rate 84 77 84 Pulse Rate [Left Radial] Respiratory Rate 29 H 29 H 25 H Blood Pressure 83/47 L 105/59 L 85/41 L Blood Pressure [Right Arm] Blood Pressure Mean Blood Pressure Mean [Right Arm] 02 Sat by Pulse Oximetry 98 99 99 Oxygen Delivery Method Nasal Cannula Nasal Cannula Nasal Cannula Oxygen Flow Rate (LPM) 2 2 2 04/09/24 13:14 04/09/24 13:15 04/09/24 13:18 Temperature Temperature Source Pulse Rate 85 85 86 Pulse Rate [Left Radial] Respiratory Rate 36 H 51 H 17 Blood Pressure 72/40 L 77/40 L 92/50 L Blood Pressure [Right Arm] Blood Pressure Mean Blood Pressure Mean [Right Arm] 02 Sat by Pulse Oximetry 97 95 97 Oxygen Delivery Method Nasal Cannula Nasal Cannula Nasal Cannula Oxygen Flow Rate (LPM) 2 2 2 04/09/24 13:20 04/09/24 13:30 04/09/24 13:35 Temperature Temperature Source Pulse Rate 78 81 83 Pulse Rate [Left Radial] Respiratory Rate 30 H 26 H 23 Blood Pressure 96/55 L 93/47 L 86/45 L Blood Pressure [Right Arm] Blood Pressure Mean Blood Pressure Mean [Right Arm] 02 Sat by Pulse Oximetry 100 98 98 Oxygen Delivery Method Nasal Cannula Nasal Cannula Nasal Cannula Oxygen Flow Rate (LPM) 2 2 2 04/09/24 13:38 04/09/24 13:40 Temperature Temperature Source Pulse Rate 85 85 Pulse Rate [Left Radial] Respiratory Rate 24 22 Blood Pressure 99/48 L 103/56 L Blood Pressure [Right Arm] Blood Pressure Mean Blood Pressure Mean [Right Arm] 02 Sat by Pulse Oximetry 98 98 Oxygen Delivery Method Nasal Cannula Nasal Cannula Oxygen Flow Rate (LPM) 2 2 Lab Data Lab Results 04/09/24 11:25: Urine Color Yellow, Urine Appearance Cloudy, Urine pH 6.0, Ur Specific [place] >= 1.030, Urine Protein 2+ A, Urine Glucose (UA) Negative, Urine Ketones Negative, Urine Blood 2+ A, Urine Nitrate Negative, Urine Bilirubin Negative, Urine Urobilinogen 0.2, Ur Leukocyte Esterase 2+ A, Urine RBC Occasional, Urine WBC 20-50, Ur Squamous Epith Cells 5-10, Ur Renal Epithelial Cell Occasional, Urine Bacteria Trace, Urine Opiates Screen Negative, Urine Methadone Screen Negative, Ur Barbituates Screen Negative, Ur Phencyclidine Scrn Negative, Ur Amphetamines Screen Negative, U Benzodiazepines Scrn Negative, Urine Cocaine Screen Negative, U Marijuana (THC) Screen Negative 04/09/24 11:31: WBC 13.3 H, RBC 4.20 L, Hgb 13.7 L, Hct 45.0, MCV 107.1 H, MCH 32.6 H, MCHC 30.4 L, RDW 13.8, Plt Count 291, MPV 10.0, Neut % (Auto) 75.8, Lymph % (Auto) 13.9, Rhea % (Auto) 8.1, Eos % (Auto) 0.5, Baso % (Auto) 0.6, N eut # (Auto) 10.1 H, Lymph # (Auto) 1.8, Rhea # (Auto) 1.1 H, Eos # (Auto) 0.1, Baso # (Auto) 0.1, PT 10.4, INR 0.94, APTT 25.4, Sodium 154 H*, Potassium 4.2, C hloride 112 H, Carbon Dioxide 31 H, Anion Gap 15.2 H, BUN 41 H, Creatinine 1.60 H, Estimated Creat Clear 71, Estimated GFR 44 L, Est GFR ( Amer) 53 L, G lucose 166 H, Lactate 1.7, Calcium 9.6, Magnesium 2.5 H, Total Bilirubin 0.6, AST 38, ALT 26, Alkaline Phosphatase 90, Troponin I < 0.01, NT-Pro-B Natriuret Pep 57.0, Total Protein 9.5 H, Albumin 4.6, Globulin 4.9 H, Albumin/Globulin Ratio 0.9 L, Lipase 137, Procalcitonin 0.281 04/09/24 11:33: VBG pH 7.44 H, VBG pCO2 40.4, VBG pO2 66.3 H, VBG HCO3 26.6, VBG Total CO2 27.9 H, VBG O2 Saturation 93.3 H, VBG Base Excess 2.4 H, VBG Lactic Acid 2.0 04/09/24 11:31 04/09/24 11:31 Orders (Tests/Meds): ED MEDICATIONS Generic Name Dose Route Start Last Admin Trade Name Freq PRN Reason Stop Dose Admin Vancomycin/PEG/NADA/Lysine/Water 1.75 gm in 350 mls @ 175 mls/hr 04/09/24 12:00 04/09/24 12:05 Vancomycin 1.75gm/350ml (Peg) Premix IV 04/09/24 13:59 175 mls/hr ONCE ONE Administration Norepinephrine/Dextrose 8 mg in 250 mls @ 1.875 mls/hr 04/09/24 13:15 04/09/24 13:52 Levophed 8mg/250ml-D5w Premix IV 05/09/24 13:14 8 mcg/min .Q24H ANSON 15 mls/hr Infusion Protocol 1 MCG/MIN Sodium Chloride 10 ml 04/09/24 12:58 04/09/24 13:01 Sodium Chloride 0.9% 10ml Syr (Rad Only) IV 05/09/24 12:57 10 ml NEEDED PRN Administration Maintain IV Site Discontinued Medications Generic Name Dose Route Start Last Admin Trade Name Galo PRN Reason Stop Dose Admin Piperacillin Sod/Tazobactam 100 mls @ 200 mls/hr 04/09/24 11:31 04/09/24 11:47 Sod 4.5 gm/ Sodium Chloride IV 04/09/24 12:00 200 mls/hr ONCE ONE Administration Lactated Ringer's 1,980 mls @ 990 mls/hr 04/09/24 11:31 04/09/24 11:49 Lactated Ringer's 1000 Ml Bag 30 ml/kg infuse over 2 hr (1980 ml) 04/09/24 13:30 990 mls/hr IV Administration .Q2H ONE Iopamidol 80 ml 04/09/24 12:58 04/09/24 13:00 Iopamidol-370 (76%);100ml Bottle IV 04/09/24 12:59 80 ml ONCE ONE Administration Miscellaneous 1 each 04/09/24 11:45 Vancomycin Consult Request NOTAPPLIC 05/09/24 11:44 CONSULT PHARMACY [facility] Sodium Chloride 50 ml 04/09/24 12:58 04/09/24 13:00 0.9 % Sodium Chloride 50 Ml Vial IV 04/09/24 12:59 50 ml ONCE ONE Administration ORDERS Category Date Time Status CT angio abdomen pelvis Stat Cat Scan 04/09/24 12:[address] angio chest PE protocol Stat Cat Scan 04/09/24 12:[address] head/brain wo con Stat Cat Scan 04/09/24 12:17 Completed XR chest portable Stat Exams 04/09/24 11:31 Completed Complete Blood Count Auto Diff Stat Lab 04/09/24 11:31 Completed Comprehensive Metabolic Panel Stat Lab 04/09/24 11:31 Completed Drug Screen,Urine Stat Lab 04/09/24 11:25 Completed Lactic Acid Stat Lab 04/09/24 11:31 Completed Lipase Stat Lab 04/09/24 11:31 Completed Magnesium Stat Lab 04/09/24 11:31 Completed NT Pro Brain Natriuretic Pep. Stat Lab 04/09/24 11:31 Completed PT INR [Prothrombin Time INR] Stat Lab 04/09/24 11:31 Completed PTT [Activated Partial Thrombo Time] Stat Lab 04/09/24 11:31 Completed Procalcitonin Stat Lab 04/09/24 11:31 Completed Troponin I Q3H Lab 04/09/24 14:45 Ordered Troponin I Q3H Lab 04/09/24 17:45 Ordered Troponin I Stat Lab 04/09/24 11:31 Completed Urinalysis and Microscopic Stat Lab 04/09/24 11:25 Completed Blood Culture Stat Micro 04/09/24 11:31 Received Urine Culture Stat Micro 04/09/24 11:25 Received Urine Culture(cathed specimen) Stat Micro 04/09/24 11:25 Received Venous Blood Gas Stat RT 04/09/24 11:33 Completed Medical Decision Narrative: Is a 63-year-old male history of hypertension, hyperlipidemia, schizoaffective disorder, type 2 diabetes, RAJAN, cerebral palsy, CHF presenting with altered mental status. Per nursing facility/EMS, patient has been in his current state for the last 48 hours or so. Patient usually interactive, conversational, however for the past 2 days he has been not interacting at all, not eating or drinking, not moving. Called EMS today. On EMS arrival, patient tachycardic and febrile. Brought to the ED for further evaluation. On my evaluation, the patient sitting up in bed, alert, GCS 6 and protecting airway. Not interacting the pain, but blinking eyes to light. Pupils are 3 mm and reactive bilaterally. Lungs are clear bilaterally anterior and posteriorly. Abdomen is soft, nontender, nondistended. No lower extremity edema that is meaningful. No evidence of trauma about the head or neck. History obtained largely with EMS. Differential includes sepsis, pneumonia, intracranial bleed, stroke, metabolic abnormality, endocrinologic abnormality, urinary tract infection, ACS, CO, psychiatric, among other. Patient given empiric antibiotics, fluid bolus. EKG independently interpreted and patient sinus tachycardia [address] changes, but T wave inversions in inferior leads consistent with potential ischemia. Normal axis. NV interval about 200 ms. QRS 101, QTc 473. Patient placed on court recording monitor and continuous pulse oximetry with initial blood pressure 115/71, 109 pulse rate and O2 sat 95% on room air. Workup initiated. Independent interpretation with leukocytosis with neutrophilia and monocyte EMEA. Patient's coags normal. Blood gas with mild alkalosis, but largely nonactionable. pH 7.44/CO2 normal at 40/bicarb normal at 26.6 with normal lactate. Chemistry most concerning about patient's workup. Hyponatremic 154 mmol/L with TAURUS creatinine 1.6 and BUN 41. Magnesium 2.5 troponin negative, BNP negative, procalcitonin 0.28. Urinalysis consistent with UTI on cath specimen blood, leukocyte esterase, white blood cells and bacteria. UDS negative. Given altered mental status, CT head was obtained. On independent interpretation, no evidence of intracranial hemorrhage or acute pathology. CT angiogram of the chest abdomen and pelvis were also ordered to rule out acute pathology. I do not appreciate any acute pathology in the chest including PE, pneumothorax, pneumonia. I also do not appreciate any intra-abdominal abnormality or obstructive uropathy. On reevaluation, patient becoming progressively hypotensive. Norepinephrine was started and uptitrated to maximal dose of 10 mcg/min. Hospital medicine was contacted and case was discussed at length, patient to be admitted for sepsis in the setting of urinary tract infection and septic shock. Sepsis reperfusion exam was performed and similar to arrival. Capillary refill intact, patient at neurologic baseline on arrival, although actually is responding to pain. Slightly improved. [employer] Scientist disclaimer Much of this encounter note is an electronic high risk case manager spoken language to printed text. Electronic high risk case manager of the spoken language may permit errors. Although I have reviewed the note, some errors may still exist. Critical Care Critical Care Time Critical Care Time: Yes (ID, cardiovascular) Attestation: On 04/09/24, the high probability of a clinically significant, sudden or life threatening deterioration of the following system(s) required my full and direct attention, intervention and personal management. The time I documented below is in addition to time spent performing reported procedures but includes the following listed in this critical care notation. Total Time Total Critical Care Time: 75
[2024-04-09 12:01] LABS: Albumin Level 4.6 g/dl (3.5-5.0); Chloride 112 mmol/L (98-107); Potassium 4.2 mmoL/L (3.5-5.1)
[2024-04-09 12:03] LABS: Lactic Acid 1.7 mmol/L (0.7-2.1)
[2024-04-09 12:04] LABS: Alanine Aminotransferase 26 U/L (12-78); Albumin/Globulin Ratio 0.9 (1.1-1.8); Alkaline Phosphatase 90 U/L (38-126); Anion Gap 15.2 mEq/L (5-15); Aspartate Amino Transferase 38 U/L (17-59); Bilirubin,Total 0.6 mg/dl (0.2-1.3); Blood Urea Nitrogen 41 mg/dl (9-20); Calcium 9.6 mg/dl (8.4-10.2); Carbon Dioxide 31 mmol/L (22.0-30.0); Creatinine Clearance Estimated 71 mL/min (50-200); Estimated Glomerular Filt Rate 44 ml/min (>60); GFR (African American) 53 ML/MIN (>60); Globulin 4.9 g/dL (1.3-3.2); Glucose 166 mg/dl (74-100); Lipase 137 U/L (23-300); Total Protein,Serum 9.5 g/dl (6.3-8.2)
[2024-04-09 12:05] LABS: Magnesium 2.5 mg/dl (1.6-2.3)
[2024-04-09] MEDS: VANCOMYCIN/WATER FOR INJ (PEG) 1.75 GM/350 ML PIGGYBACK IV (12:05)
[2024-04-09 12:10] LABS: Barbiturates Screen,Urine Negative ng/ml (<200); Benzodiazepines Screen,Urine Negative ng/ml (<200)
[2024-04-09 12:11] LABS: Amphetamine/Metha Screen,Urine Negative ng/ml (<1000)
[2024-04-09 12:12] LABS: Cocaine Screen,Urine Negative ng/ml (<300); Methadone Screen,Urine Negative ng/ml (<300)
[2024-04-09 12:13] LABS: Phencyclidine Screen,Urine Negative ng/ml (<25)
[2024-04-09 12:14] LABS: Sodium 154 mmol/L (136-145)
[2024-04-09 12:14] LABS: Opiate Screen,Urine Negative ng/ml (<300)
[2024-04-09 12:16] LABS: Troponin I < 0.01 ng/ml (0.00-0.034)
--- NOTE | 2024-04-09 12:16 | PC.NURSE ---
Dr. Nunez notified of Na of 154.
[2024-04-09 12:17] LABS: Cannabinoid Screen,Urine Negative ng/ml (<50)
--- NOTE | 2024-04-09 12:17 | CT_ITS ---
FINAL REPORT TECHNIQUE: Axial imaging of the chest is obtained after the administration of contrast. 3-D MIP reformatted images were also obtained and reviewed per PE protocol. This study was performed with techniques to keep radiation doses as low as reasonably achievable, (ALARA). Individualized dose reduction techniques using automated exposure control or adjustment of mA and/or kV according to the patient's size were employed. CLINICAL HISTORY: ams, tachycardia, hypoxemia, ramiro COMPARISON: 12/27/2023 FINDINGS: The pulmonary arteries are well filled. There is no evidence of pulmonary embolus. There is no aortic dissection. Heart size is normal. There is no mediastinal, hilar, or axillary lymphadenopathy. The lungs are clear. There is no pleural or pericardial effusion. No acute osseous abnormality. IMPRESSION: No evidence of pulmonary embolism or aortic dissection. Reviewed, Interpreted and Dictated by Minoo Solis MD Transcribed by Yarelis Chappell Authenticated and [facility]
--- NOTE | 2024-04-09 12:17 | CT_ITS ---
FINAL REPORT TECHNIQUE: Thin section axial images were obtained from skull base to vertex without contrast. Coronal reconstruction images were obtained from the axial data. Exam was performed using dose reduction techniques such as automated exposure control, adjustment of the mA and kV according to patient size, and use of iterative reconstruction technique. CLINICAL HISTORY: ams COMPARISON: 03/10/2023 FINDINGS: There is atrophy. No mass effect or midline shift. No intracranial hemorrhage. No hydrocephalus. Periventricular low density is likely related to changes of chronic small vessel ischemia. The basilar cisterns are preserved. The posterior fossa is without acute abnormality. The soft tissues are without acute abnormality. No acute osseous abnormality is identified. IMPRESSION: No acute intracranial abnormality. Atrophy and changes suggesting chronic small vessel ischemia. Reviewed, Interpreted and Dictated by Minoo Solis MD Transcribed by Yarelis Chappell Authenticated and [facility]
--- NOTE | 2024-04-09 12:17 | CT_ITS ---
FINAL REPORT TECHNIQUE: Thin section axial images were obtained through the abdomen after contrast injection per CT angiogram protocol. Multiplanar reconstruction images were obtained from the axial data. This exam was performed with techniques to keep radiation dose as low as reasonably achievable. This includes automated exposure control, adjustment of the MA and KVP, and iterative reconstruction technique. CLINICAL HISTORY: ams, tachycardia, hypoxemia, ramiro COMPARISON: CT abdomen and pelvis 12/27/2023 FINDINGS: CTA: No abdominal aortic aneurysm or aortic dissection. There is mild stenosis at the celiac origin. The superior mesenteric artery and inferior mesenteric artery are patent without stenosis. The renal arteries are patent without stenosis. The common iliac arteries and visualized portions of the internal and external iliac arteries are patent without stenosis. NONVASCULAR: The liver is homogeneous. The gallbladder is present. The spleen, adrenal glands, and pancreas are without acute abnormality. There is no hydronephrosis. There is an exophytic lesion arising from the right kidney measuring 18 mm which is not represent a simple cyst. There is a hypodense lesion in the more inferior right kidney, likely a cyst and appears unchanged from the prior study. GI tract demonstrates no evidence of small-bowel obstruction. The appendix is not seen the portions of the right abdomen are not included in the imaged field. Remaining GI tract is without acute abnormality. No lymphadenopathy or free fluid. No acute osseous abnormality. IMPRESSION: No evidence of abdominal aortic aneurysm or dissection. Patent branch vessels without significant stenosis. Reviewed, Interpreted and Dictated by Minoo Solis MD Transcribed by Faith Wolfe Authenticated and [facility]
[2024-04-09 12:18] LABS: Activated Partial Thrombo Time 25.4 seconds (22.5-28.5); INR 0.94 (0.9-1.1); Prothrombin Time 10.4 seconds (9.2-12.1)
[2024-04-09 12:20] LABS: Procalcitonin 0.281 ng/mL (0.0-2.0)
[2024-04-09 12:41] LABS: Bacteria,Urine Trace /lpf; RBC,Urine Occasional #/hpf (0-3); Renal Epithelial Cells,Urine Occasional #/lpf (0); WBC,Urine 20-50 #/hpf (0-3)
[2024-04-09] MEDS: IOPAMIDOL-370 (76%);100ML BOTTLE 80 ML IV (13:00)
[2024-04-09] MEDS: 0.9 % SODIUM CHLORIDE 50 ML VIAL IV (13:00)
[2024-04-09] MEDS: SODIUM CHLORIDE 0.9% 10ML SYR (RAD ONLY) 10 ML IV (13:01)
[2024-04-09] MEDS: NOREPINEPHRINE BITARTRATE/D5W 8 MG/250 ML PLAST..BAG 1.88 MG IV (13:03)
--- NOTE | 2024-04-09 13:07 | PC.NURSE ---
SPOKE WITH PT'S BROTHER SANDRA HEREDIA AND WILL BE SPEAKING WITH OTHER BROTHER AND WILL CALL BACK WITH UPDATE ON PT'S RESUSCITATION STATUS
--- NOTE | 2024-04-09 13:19 | PC.NURSE ---
1311hrs hours patient upgraded to KEVIN Level 2 1311hrs due to severe hypotension patient was placed on levophed at 1mcg/min and pressurized fluids delivered to the patient. 1315hrs patient infusion rate titrated up to 3mcg/min 1316hrs patient placed on waveform capnography. 1316hrs patient infusion rated titrated up again to 8mcg/min. Patient currently in a semi-fowlers position, vitals are q5mins with an goal of a MAP of 65.
--- NOTE | 2024-04-09 13:19 | PC.NURSE ---
DR LEAL SPEAKING WITH MYRIAM HEREDIA'S POA R/T CODE STATUS
--- NOTE | 2024-04-09 13:49 | P.HP_ITS ---
History of Present Illness *Admission Date: 04/09/24 *Reason for visit:: Confusion, weak *History of present illness: Mr. Blakely is a 63-year-old male with history of CP, chronic respiratory failure and is supposed to wear BiPAP at night for RAJAN but does not wear it regularly, schizoaffective disorder, diabetes, hypothyroid. He presented to the ER via EMS due to worsening confusion and fatigue over the past 48 hours. Patient is usually interactive and conversational. He has had minimal interaction and not eating or drinking over the past 2 days. EMS was called and patient was brought to the ER for evaluation. Found to be tachycardic, febrile, hypotensive. Concern for septic shock. Initial workup concerning for urinary source for his infection. Treated with sepsis bolus and broad-spectrum antibiotics. Remained hypotensive necessitating initiation of norepinephrine fo r appropriate blood pressure with MAP greater than 65. Medicine consulted for admission and further management. On arrival to the ICU, patient is not able to give much history. Is somnolent. Will make eye contact but very slow to respond with minimal answer to any questions. Appears in moderate distress. Workup concerning for sodium of 154, chloride 112, creatinine 1.6 with baseline 1.0. [facility] Disclaimer: The information contained in this section may have been updated after the patient was seen, as this information can be updated by other users. Medical History Cerebral palsy Poor dentition Renal cyst Schizoaffective disorder HLD (hyperlipidemia) Debility Diabetes mellitus Coronary arteriosclerosis in [place] artery Diverticulosis of large intestine without perforation or abscess without bleeding Generalized muscle weakness Other specified arthritis, multiple sites Primary osteoarthritis of right knee Typical angina RAJAN (obstructive sleep apnea) BPH (benign prostatic hyperplasia) COPD (chronic obstructive pulmonary disease) Acute respiratory failure with hypoxia and hypercarbia Depression Anxiety Hypothyroid GERD (gastroesophageal reflux disease) Seizure Right lower lobe pneumonia Bronchomalacia Pulmonary emphysema Renal insufficiency Chronic subdural hematoma Intolerance to BiPAP/CPAP Edema Renal lesion Celiac artery stenosis Chronic heart failure with preserved ejection fraction (HFpEF) Heart failure, NYHA class 2 Extreme obesity 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 Obesity, Class II, BMI 35-39.9, isolated (see actual BMI) Impingement syndrome of both shoulders 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 Osteopenia Renal insufficiency Anemia HHD (hypertensive heart disease) Subdural hematoma Surgical History H/O heart artery stent H/O cardiac catheterization History of carpal tunnel release History of arthroscopy of shoulder Family History Other Cancer Diabetes Social History Smoking Status: Former smoker tobacco type: cigarettes alcohol intake: never substance use type: denies use current occupational status: disabled Travel in the last 8 weeks: None caregiver/support person: Yes household members: caregiver housing: correction caffeine: No Other Medical History Have you received the Flu Vaccine for this season: No Have you received the Pneumonia Vaccine: Yes (10/10/18) Review of Systems Review of Systems Review of systems:: unable to obtain (Patient confused and poor story) Meds Home Medications and Allergies Home Medications ?Medication ?Instructions ?Recorded ?Confirmed ?Type atorvastatin 40 mg tablet (Lipitor) 40 mg PO HS Cholesterol 03/24/17 04/09/24 History isosorbide mononitrate 30 mg 30 mg PO DAILY Chest Pain 04/11/17 04/09/24 History tablet,extended release 24 hr magnesium oxide 400 mg PO HS Supplement 09/30/17 04/09/24 History acetaminophen 500 mg tablet 500 mg PO Q4HP PRN Fever Or Pain 11/10/17 04/09/24 History omeprazole 20 mg capsule,delayed 20 mg PO Q48H Acid Reflux 11/10/17 04/09/24 History release losartan 25 mg tablet (Cozaar) 25 mg PO DAILY High Blood Pressure 09/29/18 04/09/24 History aspirin 81 mg chewable tablet 81 mg PO DAILY Heart Disease 01/25/19 04/09/24 History loperamide 2 mg capsule 2 mg PO Q4HP PRN Diarrhea 01/25/19 04/09/24 History trazodone 100 mg tablet 100 mg PO HS Insomnia 02/24/20 04/09/24 History metformin 500 mg tablet 500 mg PO BIDWMEAL Diabetes 10/30/20 04/09/24 History docusate calcium 240 mg capsule 240 mg PO DAILYP PRN Constipation 02/09/21 04/09/24 History lactulose 10 gram/15 mL oral 30 ml PO DAILYP PRN Constipation 02/09/21 04/09/24 History solution duloxetine 60 mg capsule,delayed 60 mg PO DAILY MOOD 10/17/21 04/09/24 History release linagliptin 5 mg tablet (Tradjenta) 5 mg PO DAILY Diabetes 10/17/21 04/09/24 History tiotropium bromide 1.25 2 puff inhalation DAILY Copd 10/17/21 04/09/24 History mcg/actuation mist for inhalation (Spiriva Respimat) aluminum hydrox-magnesium carb 95 30 ml PO Q4HP PRN Acid Reflux 11/21/22 04/09/24 History mg-358 mg/15 mL oral suspension (Acid Gone Antacid) bisacodyl 5 mg tablet 10 mg PO DAILYP PRN Constipation 11/21/22 04/09/24 History duloxetine 30 mg capsule,delayed 30 mg PO DAILY MOOD 11/21/22 04/09/24 History release polyethylene glycol 3350 17 gram 17 g PO DAILY Constipation 11/21/22 04/09/24 History oral powder packet cyanocobalamin (vitamin B-12) 250 750 mcg PO DAILY Supplement 01/08/23 04/09/24 History mcg tablet (Vitamin B-12) sennosides 8.6 mg-docusate sodium 2 tab PO BID Constipation 01/08/23 04/09/24 History 50 mg tablet (Senexon-S) bisacodyl 10 mg rectal suppository 10 mg HI DAILYP PRN Constipation 01/28/23 04/09/24 History albuterol sulfate 90 mcg/actuation 2 inh inhalation QIDP PRN 03/10/23 04/09/24 History aerosol inhaler Shortness Of Breath Or Wheezing folic acid 800 mcg tablet 800 mcg PO DAILY Supplement 03/10/23 04/09/24 History guaifenesin 100 mg/5 mL oral 200 mg PO Q4HP PRN Cough 03/10/23 04/09/24 History liquid (Diabetic Tussin EX) multivitamin with folic acid 400 1 tab PO DAILY Supplement 03/10/23 04/09/24 History mcg tablet (Tab-A-Laron) furosemide 40 mg tablet (Lasix) 40 mg PO DAILY Fluid 05/01/23 04/09/24 History levetiracetam 1,000 mg tablet 1,000 mg PO BID SEIZURES 05/01/23 04/09/24 History (Keppra) spironolactone 50 mg tablet 50 mg PO DAILY Fluid 05/01/23 04/09/24 History levothyroxine 50 mcg tablet 50 mcg PO DAILYDM THYROID 05/26/23 04/09/24 History insulin glargine 100 unit/mL (3 15 unit (0.15 mL) SQ HS #15 mL 07/08/23 04/09/24 Rx mL) subcutaneous pen (Lantus Solostar U-100 Insulin) coQ10 (ubiquinol) 100 mg capsule 100 mg PO BID #180 caps 07/16/23 04/09/24 Rx (Qunol Pranav CoQ10) gabapentin 400 mg capsule 400 mg PO TID NERVE PAIN #90 caps 11/17/23 04/09/24 Rx tramadol 50 mg tablet 100 mg (2 x 50 mg) PO Q6H #240 tabs 02/01/24 04/09/24 Rx cariprazine 1.5 mg capsule 1.5 mg PO DAILY 02/24/24 04/09/24 History (Estefanyr) insulin lispro protamine-lispro 15 unit SQ QAM Diabetes 02/24/24 04/09/24 History 100 unit/mL (75-25) subcutaneous pen (Humalog Mix 75-25 KwikPen) tamsulosin 0.4 mg capsule (Flomax) 0.4 mg PO DAILY #30 caps 04/05/24 04/09/24 Rx baclofen 10 mg tablet 10 mg PO TID 04/09/24 04/09/24 History New Prescriptions to Start Prescriptions: Allergies Allergy/AdvReac Type Severity Reaction Status Date / Time morphine (MORPHINE) Allergy Mild HURTS Verified 04/05/24 12:54 STOMACH nitroglycerin AdvReac Mild Nausea Verified 04/05/24 12:54 Exam Data for Last 24 hours Vital signs and Labs for Last 24 Hours: Temp Pulse Resp BP Pulse Ox O2 Del Method O2 Flow Rate 99.5 F 89 28 H 97/53 L 97 Nasal Cannula 2 04/09/24 11:15 04/09/24 13:02 04/09/24 13:02 04/09/24 13:02 04/09/24 13:02 04/09/24 12:30 04/09/24 12:30 Laboratory Results - last 24 hr 04/09/24 11:25: Urine Color Yellow, Urine Appearance Cloudy, Urine pH 6.0, Ur Specific [place] >= 1.030, Urine Protein 2+ A, Urine Glucose (UA) Negative, Urine Ketones Negative, Urine Blood 2+ A, Urine Nitrate Negative, Urine Bilirubin Negative, Urine Urobilinogen 0.2, Ur Leukocyte Esterase 2+ A, Urine RBC Occasional, Urine WBC 20-50, Ur Squamous Epith Cells 5-10, Ur Renal Epithelial Cell Occasional, Urine Bacteria Trace, Urine Opiates Screen Negative, Urine Methadone Screen Negative, Ur Barbituates Screen Negative, Ur Phencyclidin e Scrn Negative, Ur Amphetamines Screen Negative, U Benzodiazepines Scrn Negative, Urine Cocaine Screen Negative, U Marijuana (THC) Screen Negative 04/09/24 11:31: WBC 13.3 H, RBC 4.20 L, Hgb 13.7 L, Hct 45.0, MCV 107.1 H, MCH 32.6 H, MCHC 30.4 L, RDW 13.8, Plt Count 291, MPV 10.0, Neut % (Auto) 75.8, Lymph % (Auto) 13.9, [place] % (Auto) 8.1, Eos % (Auto) 0.5, Baso % (Auto) 0.6, Neut # (Auto) 10.1 H, Lymph # (Auto) 1.8, [place] # (Auto) 1.1 H, Eos # (Auto) 0.1, Baso # (Auto) 0.1, PT 10.4, INR 0.94, APTT 25.4, Sodium 154 H*, Potassium 4.2, Chloride 112 H, Carbon Dioxide 31 H, Anion Gap 15.2 H, BUN 41 H, Creatinine 1.60 H, Estimated Creat Clear 71, Estimated GFR 44 L, Est GFR ( Amer) 53 L, Glucose 166 H, Lactate 1.7, Calcium 9.6, Magnesium 2.5 H, Total Bilirubin 0.6, AST 38, ALT 26, Alkaline Phosphatase 90, Troponin I < 0.01, NT-Pro-B Natriuret Pep 57.0, Total Protein 9.5 H, Albumin 4.6, Globulin 4.9 H, Albumin/Globulin Ratio 0.9 L, Lipase 137, Procalcitonin 0.281 04/09/24 11:33: VBG pH 7.44 H, VBG pCO2 40.4, VBG pO2 66.3 H, VBG HCO3 26.6, VBG Total CO2 27.9 H, VBG O2 Saturation 93.3 H, VBG Base Excess 2.4 H, VBG Lactic Acid 2.0 I & O for Last 24 hours: Intake & Output 04/06/24 04/07/24 04/08/24 04/09/24 23:59 23:59 23:59 23:59 Intake Total 6.064 / 6.064 Balance 6.064 / 6.064 Weight 108.862 kg Constitutional Constitutional: moderate distress, obese, chronically ill appearing, disheveled and somnolent *Routine HEENT Exam Head: Present normocephalic Eye: Present EOMI and PERRL ENT: Present mucous membranes moist *Routine Neck Exam Neck: Present supple; Absent lymphadenopathy *Routine Respiratory Exam Respiratory: Present prolonged expiratory phase, distant breath sounds and diminished air movement; Absent rhonchi, wheezes or crackles *Routine Cardiovascular Exam Cardiovascular: Present RRR *Routine Abdominal Exam Abdominal: Present soft and normoactive bowel sounds; Absent tenderness *Routine Rectal Exam Rectal:: deferred *Routine Genitalia Exam Genitalia:: deferred *Routine Extremities Exam Extremities: Absent cyanosis, clubbing or edema *Routine Skin Exam Skin: Present intact and warm; Absent rash *Routine Neurological Exam Neurological: Present alert, altered mental status and moving all extremities Assessment and Plan *Assessment and plan (1) Septic shock: Status: Acute Category: Medical Code(s): A41.9 - Sepsis, unspecified organism; R65.21 - Severe sepsis with septic shock (2) Acute UTI: Status: Acute Category: Medical Code(s): N39.0 - Urinary tract infection, site not specified (3) TAURUS (acute kidney injury): Status: Acute Category: Medical Code(s): N17.9 - Acute kidney failure, unspecified (4) Acute hypernatremia: Status: Acute Category: Medical Code(s): E87.0 - Hyperosmolality and hypernatremia (5) Acute metabolic encephalopathy: Status: Acute Category: Medical Code(s): G93.41 - Metabolic encephalopathy (6) Cerebral palsy: Status: Acute Category: Medical Code(s): G80.9 - Cerebral palsy, unspecified (7) HLD (hyperlipidemia): Status: Acute Qualifiers: Hyperlipidemia type: mixed hyperlipidemia Qualified Code(s): E78.2 - Mixed hyperlipidemia Category: Medical Code(s): E78.5 - Hyperlipidemia, unspecified (8) Diabetes mellitus: Status: Acute Category: Medical Code(s): E11.9 - Type 2 diabetes mellitus without complications (9) Debility: Status: Acute Category: Medical Code(s): R53.81 - Other malaise (10) RAJAN (obstructive sleep apnea): Status: Acute Category: Medical Code(s): G47.33 - Obstructive sleep apnea (adult) (pediatric) (11) GERD (gastroesophageal reflux disease): Status: Acute Category: Medical Code(s): K21.9 - Gastro-esophageal reflux disease without esophagitis (12) Depression: Status: Acute Category: Medical Code(s): F32.A - Depression, unspecified (13) CAD (coronary artery disease): Status: Acute Qualifiers: Associated angina: with other forms of angina Coronary Disease- Associated Artery/Lesion type: [place] artery [place] vs. transplanted heart: [place] heart Qualified Code(s): I25.118 - Atherosclerotic heart disease of [place] coronary artery with other forms of angina pectoris Category: Medical Code(s): I25.10 - Atherosclerotic heart disease of [place] coronary artery without angina pectoris (14) BPH (benign prostatic hyperplasia): Status: Acute Category: Medical Code(s): N40.0 - Benign prostatic hyperplasia without lower urinary tract symptoms (15) HTN (hypertension): Status: Chronic Qualifiers: Hypertension type: primary hypertension Qualified Code(s): I10 - Essential (primary) hypertension Category: Medical Code(s): I10 - Essential (primary) hypertension (16) Schizoaffective disorder: Status: Acute Category: Medical Code(s): F25.9 - Schizoaffective disorder, unspecified Plan Mr. Blakely is a [id number] male with multiple comorbidities who presented t o the ER for altered mental status. Found to be in septic shock from suspected UTI and hypernatremia. Case discussed with ER physician, request admission to the ICU for further management of his septic shock, infection, electrolyte disturbances. I agreed to admit for further care. Monitoring serial sodium levels. Currently on norepinephrine for hypotension. Cultures pending. Received broad-spectrum antibiotics in the ER along with sepsis bolus. Problems addressed as follows Septic shock Urinary tract infection Metabolic encephalopathy Hypernatremia -Patient presented with tachycardia of 122, tachypnea with respiratory rate 26. Afebrile. Workup concerning for UTI with grossly abnormal urine with 2+ leuk esterase, 20-50 white cells, trace bacteria. Chest imaging negative for pne umonia. Pro-[place] 0.28. White count elevated at 13.7. Findings consistent with septic shock as he remains hypotensive after fluid bolus. -Initiated on norepinephrine to maintain MAP greater than 65. Currently on 9 mics -Received vancomycin and Zosyn in the ER. Will continue broad-spectrum antibiotics pending blood and urine cultures. -Hypernatremia likely from dehydration and sepsis -Repeat order for sodium in 8 hours. Repeat CBC, CMP, magnesium ordered for the morning. - Chest CTA per my review with no PEs or focal consolidation TAURUS: - BUN 41, creatinine 1.6. Baseline creatinine 1.0. Potassium 4.2, magnesium 2.5. -Continue maintenance fluids with LR at 100 cc an hour Schizoaffective disorder: Continue Cymbalta 60 mg daily, holding gabapentin with TAURUS and encephalopathy. Continue Keppra 500mg twice daily, Vraylar 1.5mg daily Hypertension: Holding losartan in the setting of sepsis Hypothyroid: TSH pending. Previously well-controlled. Continue levothyroxine 50 mcg daily Diabetes: A1c 15 months ago 5.7. Repeat A1c pending. Kos 166 on arrival -Holding metformin and glargine. Continue sliding scale insulin with fingersticks ACHS. Obesity and debility complicate all aspects of his care Holding trazodone nightly for sleep due to sedation Continue tamsulosin 0.4 mg daily for BPH Continue bowel regimen from correction Full code Lovenox 40 mg daily N.p.o. pending improvement in mentation
--- NOTE | 2024-04-09 14:02 | P.CONPHA_ITS ---
Pharmacy Consult Date: 04/09/24 Time: 14:02 Referring provider: DR. SALOMON Reason for Consult:: VANCOMYCIN DOSING Allergies Allergy/AdvReac Type Severity Reaction Status Date / Time morphine (MORPHINE) Allergy Mild HURTS Verified 04/05/24 12:54 STOMACH nitroglycerin AdvReac Mild Nausea Verified 04/05/24 12:54 Home Medications ?Medication ?Instructions ?Recorded ?Confirmed ?Type atorvastatin 40 mg tablet (Lipitor) 40 mg PO HS Cholesterol 03/24/17 04/09/24 History isosorbide mononitrate 30 mg 30 mg PO DAILY Chest Pain 04/11/17 04/09/24 History tablet,extended release 24 hr magnesium oxide 400 mg PO HS Supplement 09/30/17 04/09/24 History acetaminophen 500 mg tablet 500 mg PO Q4HP PRN Fever Or Pain 11/10/17 04/09/24 History omeprazole 20 mg capsule,delayed 20 mg PO Q48H Acid Reflux 11/10/17 04/09/24 History release losartan 25 mg tablet (Cozaar) 25 mg PO DAILY High Blood Pressure 09/29/18 04/09/24 History aspirin 81 mg chewable tablet 81 mg PO DAILY Heart Disease 01/25/19 04/09/24 History loperamide 2 mg capsule 2 mg PO Q4HP PRN Diarrhea 01/25/19 04/09/24 History trazodone 100 mg tablet 100 mg PO HS Insomnia 02/24/20 04/09/24 History metformin 500 mg tablet 500 mg PO BIDWMEAL Diabetes 10/30/20 04/09/24 History docusate calcium 240 mg capsule 240 mg PO DAILYP PRN Constipation 02/09/21 04/09/24 History lactulose 10 gram/15 mL oral 30 ml PO DAILYP PRN Constipation 02/09/21 04/09/24 History solution duloxetine 60 mg capsule,delayed 60 mg PO DAILY MOOD 10/17/21 04/09/24 History release linagliptin 5 mg tablet (Tradjenta) 5 mg PO DAILY Diabetes 10/17/21 04/09/24 History tiotropium bromide 1.25 2 puff inhalation DAILY Copd 10/17/21 04/09/24 History mcg/actuation mist for inhalation (Spiriva Respimat) aluminum hydrox-magnesium carb 95 30 ml PO Q4HP PRN Acid Reflux 11/21/22 04/09/24 History mg-358 mg/15 mL oral suspension (Acid Gone Antacid) bisacodyl 5 mg tablet 10 mg PO DAILYP PRN Constipation 11/21/22 04/09/24 History duloxetine 30 mg capsule,delayed 30 mg PO DAILY MOOD 11/21/22 04/09/24 History release polyethylene glycol 3350 17 gram 17 g PO DAILY Constipation 11/21/22 04/09/24 History oral powder packet cyanocobalamin (vitamin B-12) 250 750 mcg PO DAILY Supplement 01/08/23 04/09/24 History mcg tablet (Vitamin B-12) sennosides 8.6 mg-docusate sodium 2 tab PO BID Constipation 01/08/23 04/09/24 History 50 mg tablet (Senexon-S) bisacodyl 10 mg rectal suppository 10 mg [place] DAILYP PRN Constipation 01/28/23 04/09/24 History albuterol sulfate 90 mcg/actuation 2 inh inhalation QIDP PRN 03/10/23 04/09/24 History aerosol inhaler Shortness Of Breath Or Wheezing folic acid 800 mcg tablet 800 mcg PO DAILY Supplement 03/10/23 04/09/24 History guaifenesin 100 mg/5 mL oral 200 mg PO Q4HP PRN Cough 03/10/23 04/09/24 History liquid (Diabetic Tussin EX) multivitamin with folic acid 400 1 tab PO DAILY Supplement 03/10/23 04/09/24 History mcg tablet (Tab-A-Laron) furosemide 40 mg tablet (Lasix) 40 mg PO DAILY Fluid 05/01/23 04/09/24 History levetiracetam 1,000 mg tablet 1,000 mg PO BID SEIZURES 05/01/23 04/09/24 History (Keppra) spironolactone 50 mg tablet 50 mg PO DAILY Fluid 05/01/23 04/09/24 History levothyroxine 50 mcg tablet 50 mcg PO DAILYDM THYROID 05/26/23 04/09/24 History insulin glargine 100 unit/mL (3 15 unit (0.15 mL) SQ HS #15 mL 07/08/23 04/09/24 Rx mL) subcutaneous pen (Lantus Solostar U-100 Insulin) coQ10 (ubiquinol) 100 mg capsule 100 mg PO BID #180 caps 07/16/23 04/09/24 Rx (Qunol Pranav CoQ10) gabapentin 400 mg capsule 400 mg PO TID NERVE PAIN #90 caps 11/17/23 04/09/24 Rx tramadol 50 mg tablet 100 mg (2 x 50 mg) PO Q6H #240 tabs 02/01/24 04/09/24 Rx cariprazine 1.5 mg capsule 1.5 mg PO DAILY 02/24/24 04/09/24 History (Vraylar) insulin lispro protamine-lispro 15 unit SQ QAM Diabetes 02/24/24 04/09/24 History 100 unit/mL (75-25) subcutaneous pen (Humalog Mix 75-25 KwikPen) tamsulosin 0.4 mg capsule (Flomax) 0.4 mg PO DAILY #30 caps 04/05/24 04/09/24 Rx baclofen 10 mg tablet 10 mg PO TID 04/09/24 04/09/24 History New Prescriptions to Start Prescriptions: Height: 1.7 m Weight: 108.862 kg Laboratory Results:: Laboratory Results - last 24 hr 04/09/24 11:25: Urine Color Yellow, Urine Appearance Cloudy, Urine pH 6.0, Ur Specific [place] >= 1.030, Urine Protein 2+ A, Urine Glucose (UA) Negative, Urine Ketones Negative, Urine Blood 2+ A, Urine Nitrate Negative, Urine Bilirubin Negative, Urine Urobilinogen 0.2, Ur Leukocyte Esterase 2+ A, Urine RBC Occasional, Urine WBC 20-50, Ur Squamous Epith Cells 5-10, Ur Renal Epithelial Cell Occasional, Urine Bacteria Trace, Urine Opiates Screen Negative, Urine Methadone Screen Negative, Ur Barbituates Screen Negative, Ur Phencyclidine Scrn Negative, Ur Amphetamines Screen Negative, U Benzodiazepines Scrn Negative, Urine Cocaine Screen Negative, U Marijuana (THC) Screen Negative 04/09/24 11:31: WBC 13.3 H, RBC 4.20 L, Hgb 13.7 L, Hct 45.0, MCV 107.1 H, MCH 32.6 H, MCHC 30.4 L, RDW 13.8, Plt Count 291, MPV 10.0, Neut % (Auto) 75.8, Lymph % (Auto) 13.9, [place] % (Auto) 8.1, Eos % (Auto) 0.5, Baso % (Auto) 0.6, Neut # (Auto) 10.1 H, Lymph # (Auto) 1.8, [place] # (Auto) 1.1 H, Eos # (Auto) 0.1, Baso # (Auto) 0.1, PT 10.4, INR 0.94, APTT 25.4, Sodium 154 H*, Potassium 4.2, Chloride 112 H, Carbon Dioxide 31 H, Anion Gap 15.2 H, BUN 41 H, Creatinine 1.60 H, Estimated Creat Clear 71, Estimated GFR 44 L, Est GFR ( Amer) 53 L, Glucose 166 H, Lactate 1.7, Calcium 9.6, Magnesium 2.5 H, Total Bilirubin 0.6, AST 38, ALT 26, Alkaline Phosphatase 90, Troponin I < 0.01, NT-Pro-B Natriuret Pep 57.0, Total Protein 9.5 H, Albumin 4.6, Globulin 4.9 H, Albumin/Globulin Ratio 0.9 L, Lipase 137, Procalcitonin 0.281 04/09/24 11:33: VBG pH 7.44 H, VBG pCO2 40.4, VBG pO2 66.3 H, VBG HCO3 26.6, VBG Total CO2 27.9 H, VBG O2 Saturation 93.3 H, VBG Base Excess 2.4 H, VBG Lactic Acid 2.0 Medical History: Medical History (Updated 04/09/24 @ 13:59 by Eliseo Nunez MD) Cerebral palsy Poor dentition Renal cyst Schizoaffective disorder HLD (hyperlipidemia) Debility Diabetes mellitus Coronary arteriosclerosis in [place] artery Diverticulosis of large intestine without perforation or abscess without bleeding Generalized muscle weakness Other specified arthritis, multiple sites Primary osteoarthritis of right knee Typical angina RAJAN (obstructive sleep apnea) BPH (benign prostatic hyperplasia) COPD (chronic obstructive pulmonary disease) Acute respiratory failure with hypoxia and hypercarbia Depression Anxiety Hypothyroid GERD (gastroesophageal reflux disease) Seizure Right lower lobe pneumonia Bronchomalacia Pulmonary emphysema Renal insufficiency Chronic subdural hematoma Intolerance to BiPAP/CPAP Edema Renal lesion Celiac artery stenosis Chronic heart failure with preserved ejection fraction (HFpEF) Heart failure, NYHA class 2 Extreme obesity 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 Obesity, Class II, BMI 35-39.9, isolated (see actual BMI) Impingement syndrome of both shoulders 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 Drug selected: Vancomycin Loading dose (mg): Vd (liters): 87.1 (factor used: 0.8 L/kg) Ozzie (hr-1): 0.040 Half life (hrs): 17.33 CLvanco=?? 3.484 L/hr Recommended dose: 2000 mg Interval: 24 hrs Infusion time (hrs): 2.0 Predicted peak (mcg/mL): 35.8 Predicted trough (mcg/mL): 14.85 Total body weight is being used for vancomycin dosing. Recommendations: Give Vancomycin 2000 mg q 24 hrs with an expected Cpeak of 35.8 mcg/ml and an expected Ctrough of 14.85 mcg/ml AUC 0-24 /ORTEGA Data: ORTEGA 0.5 mcg/mL:?? AUC/ORTEGA:? 1148.1 ORTEGA 1.0 mcg/mL:?? AUC/ORTEGA:? 574.1 --------- ORTEGA 1.5 mcg/mL:?? AUC/ORTEGA:? 382.7 ORTEGA 2.0 mcg/mL:?? AUC/ORTEGA:? 287.0 Thank you for the consult, will continue to follow. -MARCO A CARPENTERD
--- NOTE | 2024-04-09 14:23 | PC.NURSE ---
1421 titrated levophed infuison up to 11mcg/min
--- NOTE | 2024-04-09 14:27 | PC.NURSE ---
report called to kati henriquez on second floor
--- NOTE | 2024-04-09 15:14 | SW/DCPLANNER ---
Addendum entered by Stacy Hui 04/14/24 09:37: I have updated Karen liriano/ Jean Paul Sloan that per Dr Hopkins antibiotic has been changed from Augmentin to Bactrim for 7 days. Addendum entered by Stacy Hui 04/12/24 09:09: I have updated Karen liriano/ Jean Paul Sloan that patient will return [facility] level of care today. Original Note: This patient currently resides at [facility] level of care. I will continue to update Karen liriano/ Jean Paul until patient is medically stable for discharge. Discharge date is unknown at this time.
[2024-04-09] MEDS: ENOXAPARIN 40MG/0.4ML SYRINGE 40 MG SUBCUT (15:16)
[2024-04-09] MEDS: LACTATED RINGERS 1000ML 1,000 ML 100 ML IV (15:16)
[2024-04-09 15:37] LABS: Troponin I < 0.01 ng/ml (0.00-0.034)
[2024-04-09] MEDS: humaLOG 100 UNITS/ML 10ML VIAL (SSI) SUBCUT (15:39)
--- NOTE | 2024-04-09 15:44 | PC.NURSE ---
RESP CARE NOTE: Home BIPAP settings are per physician report at, BIPAP 18/8 cmH2O Rate 16, FIO2 at 35%.
--- NOTE | 2024-04-09 16:08 | EXP.SEPSISRE ---
[facility] Tissue Perfusion Eval Sepsis Re-Evaluation Performed: Yes Date Performed: 04/09/24 Time Performed: 15:05
[2024-04-09 16:43] LABS: Hemoglobin A1C 5.7 % (4.0-6.0)
[2024-04-09 17:29] LABS: Thyroid Stimulating Hormone 0.79 uIU/mL (0.465-4.68)
[2024-04-09 18:20] LABS: Chloride 111 mmol/L (98-107); Sodium 149 mmol/L (136-145)
[2024-04-09 18:21] LABS: Potassium 4.1 mmoL/L (3.5-5.1)
[2024-04-09 18:23] LABS: Anion Gap 16.1 mEq/L (5-15); Blood Urea Nitrogen 37 mg/dl (9-20); Carbon Dioxide 26 mmol/L (22.0-30.0); Creatinine Clearance Estimated 76 mL/min (50-200); Estimated Glomerular Filt Rate 47 ml/min (>60); GFR (African American) 57 ML/MIN (>60)
[2024-04-09 18:24] LABS: Calcium 8.8 mg/dl (8.4-10.2); Glucose 145 mg/dl (74-100)
[2024-04-09 18:37] LABS: Troponin I < 0.01 ng/ml (0.00-0.034)
[2024-04-09] MEDS: BACLOFEN 10MG TABLET 10 MG PO (20:08)
[2024-04-09] MEDS: SENNOSIDES 8.6MG/DOCUSATE 50MG TABLET 2 TAB PO (20:08)
[2024-04-09] MEDS: levETIRAcetam 500 MG TABLET 1000 MG PO (20:08)
[2024-04-09] MEDS: PANTOPRAZOLE 40MG VIAL 40 MG IV (20:08)
[2024-04-09 20:13] LABS: Coronavirus 19, PCR Not Detected (NotDetected); Influenza A, PCR Not Detected (NotDetected); Influenza B, PCR Not Detected (NotDetected)
[2024-04-10] VITALS (19 sets, daily range): BP systolic 94–145; BP diastolic 52–86; PULSE 68–94; RESP 10–29; TEMP 36.8–37.5; O2SAT 93–100; BMI 27.5
[2024-04-10] MEDS: PIPERACILLIN/TAZO 4.5 GM in 0.9 % SODIUM CHLORIDE 100 ML IV ×4 (00:17→18:09)
[2024-04-10] MEDS: LACTATED RINGERS 1000ML 1,000 ML 100 ML IV (00:17)
--- NOTE | 2024-04-10 02:00 | PC.NURSE ---
PT BLADDER SCANNED D/T LACK OF UOP. 207ML OF URINE WAS SCANNED. WILL CONTINUE TO MONITOR.
[2024-04-10] MEDS: LEVOTHYROXINE 50MCG (0.05MG) TAB 50 MCG PO (06:06)
[2024-04-10] MEDS: TIOTROPIUM 18MCG/PUFF INHALER 1 CAP IH (06:59)
[2024-04-10] MEDS: humaLOG 100 UNITS/ML 10ML VIAL (SSI) SUBCUT ×2 (07:12→20:49)
[2024-04-10 07:28] LABS: Basophils # 0.1 K/mm3 (0-0.2); Basophils % 0.6 % (0.1-2.0); Eosinophils # 0.5 K/mm3 (0.0-0.4); Eosinophils % 3.6 % (0.1-12.0); Hematocrit 36.9 % (42.0-52.0); Lymphocytes # 1.7 K/mm3 (0.7-4.5); Lymphocytes % 13.6 % (10-50); Mean Corpuscular HGB Conc 30.4 g/dL (31.8-35.4); Mean Corpuscular Hemoglobin 33.5 pg (27.0-31.2); Mean Corpuscular Volume 110.5 fl (80-94); Mean Platelet Volume 10.1 fl (7.4-10.4); Monocytes # 0.9 K/mm3 (0.1-1.0); Monocytes % 6.7 % (1.7-9.3); Neutrophils # 9.5 K/mm3 (1.8-7.8); Neutrophils % 74.6 % (37.0-80.0); Platelet Count 251 K/mm3 (142-424); Red Blood Count 3.34 M/mm3 (4.60-6.20); Red Cell Distribution Width 13.9 % (11.5-17.5); White Blood Count 12.8 K/mm3 (4.8-10.8)
--- NOTE | 2024-04-10 07:33 | P.CONPHA_ITS ---
Pharmacy Intervention Comments: HOME MEDICATION LIST VERIFIED USING LIST FROM LONG TERM
[2024-04-10 07:43] LABS: Hemoglobin 11.2 g/dL (14.1-18.0)
[2024-04-10 07:52] LABS: Albumin Level 3.8 g/dl (3.5-5.0); Chloride 113 mmol/L (98-107)
[2024-04-10 07:53] LABS: Potassium 3.9 mmoL/L (3.5-5.1)
[2024-04-10 07:55] LABS: Alanine Aminotransferase 20 U/L (12-78); Alkaline Phosphatase 67 U/L (38-126); Anion Gap 9.9 mEq/L (5-15); Aspartate Amino Transferase 29 U/L (17-59); Bilirubin,Total 0.4 mg/dl (0.2-1.3); Blood Urea Nitrogen 31 mg/dl (9-20); Carbon Dioxide 32 mmol/L (22.0-30.0); Creatinine Clearance Estimated 55 mL/min (50-200); Estimated Glomerular Filt Rate 47 ml/min (>60); GFR (African American) 57 ML/MIN (>60)
[2024-04-10 07:56] LABS: Albumin/Globulin Ratio 1.1 (1.1-1.8); Calcium 8.6 mg/dl (8.4-10.2); Globulin 3.6 g/dL (1.3-3.2); Glucose 161 mg/dl (74-100); Magnesium 2.2 mg/dl (1.6-2.3); Total Protein,Serum 7.4 g/dl (6.3-8.2)
[2024-04-10] MEDS: SENNOSIDES 8.6MG/DOCUSATE 50MG TABLET 2 TAB PO ×2 (08:04→20:52)
[2024-04-10] MEDS: FOLIC ACID 1MG TABLET 1 MG PO (08:04)
[2024-04-10] MEDS: TAMSULOSIN 0.4MG CAPSULE 0.4 MG PO (08:04)
[2024-04-10] MEDS: BACLOFEN 10MG TABLET 10 MG PO ×3 (08:04→20:50)
[2024-04-10] MEDS: DULOXETINE 30MG CAPSULE.DR 60 MG PO (08:04)
[2024-04-10] MEDS: levETIRAcetam 500 MG TABLET 1000 MG PO ×2 (08:04→20:50)
--- NOTE | 2024-04-10 08:30 | PC.NURSE ---
Report given to KAMAR Leigh at this time. Patient will be transferred to med surg unit.
[2024-04-10 08:53] LABS: Sodium 151 mmol/L (136-145)
[2024-04-10] MEDS: SODIUM CHLORIDE 0.45 % 1,000 ML 100 ML IV (10:26)
[2024-04-10] MEDS: ENOXAPARIN 40MG/0.4ML SYRINGE 40 MG SUBCUT (13:03)
[2024-04-10 13:21] LABS: POC Glucose,Bedside 112 (70-110)
[2024-04-10] MEDS: VANCOMYCIN HCL 2,000 MG in 0.9 % SODIUM CHLORIDE 250 ML 125 MG IV (14:19)
[2024-04-10 15:18] LABS: Chloride 113 mmol/L (98-107); Potassium 3.7 mmoL/L (3.5-5.1)
[2024-04-10 15:21] LABS: Anion Gap 10.7 mEq/L (5-15); Blood Urea Nitrogen 27 mg/dl (9-20); Calcium 8.6 mg/dl (8.4-10.2); Carbon Dioxide 30 mmol/L (22.0-30.0); Creatinine Clearance Estimated 69 mL/min (50-200); Estimated Glomerular Filt Rate 61 ml/min (>60); GFR (African American) 74 ML/MIN (>60); Glucose 134 mg/dl (74-100)
[2024-04-10 15:25] LABS: Sodium 150 mmol/L (136-145)
--- NOTE | 2024-04-10 15:51 | PC.NURSE ---
Pt is A&O to self. Will interact with staff at times using 2 word sentences. Has slept at intervals this shift. Turned Q2 hrs. Medication administered per apr. Call light within reach.
--- NOTE | 2024-04-10 18:35 | P.PN_ITS ---
Subjective *Date: 04/10/24 *Time: 18:35 Interval history: Patient with slight improvement in mentation today. Making eye contact, told me his name. Answering simple yes/no questions. Still confused from baseline however. Stable on 3 L oxygen. No nausea or vomiting. Will advance diet today. Remains afebrile Medical Exam Vital signs and Labs for Last 24 Hours: Vital Signs Temp Pulse Pulse Resp BP BP Pulse Ox 04/10/24 17:00 04/10/24 16:00 80 04/10/24 15:52 98.7 F 76 18 133/76 96 04/10/24 15:00 04/10/24 12:53 04/10/24 12:00 80 04/10/24 11:43 98.3 F 68 16 122/60 99 04/10/24 11:00 04/10/24 08:51 04/10/24 08:00 77 20 103/52 L 99 04/10/24 08:00 99.5 F 73 103/52 L 99 04/10/24 07:58 98 04/10/24 07:01 98 04/10/24 07:00 91 H 23 119/68 98 04/10/24 07:00 04/10/24 06:00 78 12 103/59 L 99 04/10/24 05:00 83 14 139/79 99 04/10/24 05:00 04/10/24 04:00 90 12 145/86 H 99 04/10/24 04:00 90 04/10/24 03:00 86 10 L 137/78 100 04/10/24 03:00 04/10/24 02:03 04/10/24 02:00 90 29 H 111/60 98 04/10/24 01:00 94 H 26 H 94/53 L 99 04/10/24 01:00 04/10/24 00:30 80 28 H 100 04/10/24 00:10 04/10/24 00:00 90 04/10/24 00:00 80 28 H 114/70 93 L 04/10/24 00:00 99.0 F 04/10/24 00:00 99 F 88 114/70 99 04/09/24 23:30 90 25 H 87 L 04/09/24 23:00 86 23 116/68 96 04/09/24 23:00 04/09/24 22:00 88 28 H 109/61 L 95 04/09/24 21:00 91 H 30 H 104/75 L 96 04/09/24 21:00 04/09/24 20:00 90 04/09/24 20:00 98.4 F 91 H 19 100/58 L 96 04/09/24 20:00 93 L 04/09/24 19:00 102 H 18 90/47 L 88 L 04/09/24 19:00 102 H 16 90/47 L 96 04/09/24 18:56 O2 Del Method O2 Flow Rate FiO2 04/10/24 17:00 Nasal Cannula 04/10/24 16:00 04/10/24 15:52 Nasal Cannula 2 04/10/24 15:00 Room Air 04/10/24 12:53 Nasal Cannula 2 04/10/24 12:00 04/10/24 11:43 Nasal Cannula 2 04/10/24 11:00 Nasal Cannula 2 04/10/24 08:51 Nasal Cannula 2 04/10/24 08:00 Nasal Cannula 2 04/10/24 08:00 Nasal Cannula 2 04/10/24 07:58 Nasal Cannula 2 04/10/24 07:01 Nasal Cannula 3 04/10/24 07:00 Nasal Cannula 2 04/10/24 07:00 Nasal Cannula 3 04/10/24 06:00 BiPAP 04/10/24 05:00 BiPAP 04/10/24 05:00 BiPAP 04/10/24 04:00 BiPAP 04/10/24 04:00 04/10/24 03:00 CPAP 04/10/24 03:00 BiPAP 04/10/24 02:03 35 04/10/24 02:00 BiPAP 04/10/24 01:00 BiPAP 04/10/24 01:00 BiPAP 04/10/24 00:30 BiPAP 04/10/24 00:10 35 04/10/24 00:00 04/10/24 00:00 Nasal Cannula 2 04/10/24 00:00 04/10/24 00:00 CPAP 04/09/24 23:30 Venturi Mask 3 04/09/24 23:00 Nasal Cannula 2 04/09/24 23:00 Nasal Cannula 2 04/09/24 22:00 Nasal Cannula 2 04/09/24 21:00 Nasal Cannula 2 04/09/24 21:00 Nasal Cannula 2 04/09/24 20:00 04/09/24 20:00 Nasal Cannula 2 04/09/24 20:00 Nasal Cannula 2 04/09/24 19:00 Nasal Cannula 2 04/09/24 19:00 Nasal Cannula 2 04/09/24 18:56 Nasal Cannula 2 Intake and Output 04/10/24 04/10/24 04/10/24 07:59 15:59 23:59 Intake Total 457 / 1727 1270 / 1727 Output Total 575 / 1125 550 / 1125 Balance -118 / 602 -550 / 602 1270 / 602 Intake: Intake, Oral Amount 270 / 270 Intake, Total IV Amount 457 / 1457 1000 / 1457 Lactated Ringers 1000ML 1,000 406 / 656 250 / 656 ml @ 100 mls/hr IV .Q10H [facility] Rx #:[id number] Piperacillin/Tazo 4.5 gm In 0.9 51 / 151 100 / 151 % Sodium Chloride 100 ml @ 200 mls/hr IV Q6H [facility] Rx#:[id number] Sodium Chloride 0.45 % 1,000 ml 400 / 400 @ 100 mls/hr IV .Q10H [facility] Rx#: [id number] Vancomycin HCl 2,000 mg In 0.9 250 / 250 % Sodium Chloride 250 ml @ 125 mls/hr IV Q24H [facility] Rx#:[id number] Output: Output, Urine Amount 575 / 1125 550 / 1125 Other: Number of Unmeasured Voids 0 0 0 Weight 79.515 kg 79.515 kg Patient Weight 04/10/24 23:59 Weight 79.515 kg Laboratory Results - last 24 hr 04/09/24 11:22: SARS-CoV-2 (PCR) Not detected, Influenza A Untype (PCR) Not detected, Influenza Type B (PCR) Not detected 04/09/24 17:56: Anion Gap 16.1 H, Estimated Creat Clear 76, Estimated GFR 47 L, Est GFR ( Amer) 57 L, Troponin I < 0.01 04/10/24 06:05: WBC 12.8 H, RBC 3.34 L, Hgb 11.2 L D, Hct 36.9 L, MCV 110.5 H, MCH 33.5 H, MCHC 30.4 L, RDW 13.9, Plt Count 251, MPV 10.1, Neut % (Auto) 74.6, Lymph % (Auto) 13.6, [place] % (Auto) 6.7, Eos % (Auto) 3.6, Baso % (Auto) 0.6, Neut # (Auto) 9.5 H, Lymph # (Auto) 1.7, [place] # (Auto) 0.9, Eos # (Auto) 0.5 H, Baso # (Auto) 0.1, Sodium 151 H*, Potassium 3.9, Chloride 113 H, Carbon Dioxide 32 H, Anion Gap 9.9, BUN 31 H, Creatinine 1.50 H, Estimated Creat Clear 55, Estimated GFR 47 L, Est GFR ( Amer) 57 L, Glucose 161 H, Calcium 8.6, Magnesium 2.2 D, Total Bilirubin 0.4, AST 29, ALT 20, Alkaline Phosphatase 67, Total Protein 7.4, Albumin 3.8 D, Globulin 3.6 H, Albumin/Globulin Ratio 1.1 04/10/24 13:00: POC Glucose 112 H 04/10/24 14:40: Sodium 150 H, Potassium 3.7, Chloride 113 H, Carbon Dioxide 30, Anion Gap 10.7, BUN 27 H, Creatinine 1.20, Estimated Creat Clear 69, Estimated GFR 61, Est GFR ( Amer) 74 D, Glucose 134 H, Calcium 8.6 I & O for Labs for Last 24 Hours: Intake & Output 04/07/24 04/08/24 04/09/24 04/10/24 23:59 23:59 23:59 23:59 Intake Total 155.537 / 130.670 7821 / 1727 Output Total 1125 / 1125 Balance 155.537 / 612.537 602 / 602 Weight 108.862 kg 79.515 kg Microbiology Reports for the Last 24 Hours: Microbiology 04/09/24 11:31 Blood Blood Culture - Preliminary NO GROWTH AFTER 24 HOURS 04/09/24 11:31 Blood Blood Culture - Preliminary NO GROWTH AFTER 24 HOURS 04/09/24 11:25 Urine,Catheterized Urine Culture - Preliminary Constitutional: Present mild distress, obese, chronically ill appearing and cooperative Head: Present atraumatic and normocephalic ENT: Present normal exam Respiratory: Present normal respiratory effort; Absent rhonchi, wheezes or crackles Cardiac: Present Reg Rate and Rhythm GI: Present soft and normal bowel sounds; Absent distention or tenderness Comment:: Thin extremities, sarcopenia of legs. Skin: Present intact; Absent erythema Neuro: Present alert and awake Comment:: Movement in upper extremities, no movement lower extremities. Baseline. Mild encephalopathy and confusion Assessment and Plan *Assessment and plan (1) Septic shock: Status: Acute Category: Medical Code(s): A41.9 - Sepsis, unspecified organism; R65.21 - Severe sepsis with septic shock (2) Acute UTI: Status: Acute Category: Medical Code(s): N39.0 - Urinary tract infection, site not specified (3) TAURUS (acute kidney injury): Status: Acute Category: Medical Code(s): N17.9 - Acute kidney failure, unspecified (4) Acute hypernatremia: Status: Acute Category: Medical Code(s): E87.0 - Hyperosmolality and hypernatremia (5) Acute metabolic encephalopathy: Status: Acute Category: Medical Code(s): G93.41 - Metabolic encephalopathy (6) Cerebral palsy: Status: Acute Category: Medical Code(s): G80.9 - Cerebral palsy, unspecified (7) HLD (hyperlipidemia): Status: Acute Qualifiers: Hyperlipidemia type: mixed hyperlipidemia Qualified Code(s): E78.2 - Mixed hyperlipidemia Category: Medical Code(s): E78.5 - Hyperlipidemia, unspecified (8) Diabetes mellitus: Status: Acute Category: Medical Code(s): E11.9 - Type 2 diabetes mellitus without complications (9) Debility: Status: Acute Category: Medical Code(s): R53.81 - Other malaise (10) RAJAN (obstructive sleep apnea): Status: Acute Category: Medical Code(s): G47.33 - Obstructive sleep apnea (adult) (pediatric) (11) GERD (gastroesophageal reflux disease): Status: Acute Category: Medical Code(s): K21.9 - Gastro-esophageal reflux disease without esophagitis (12) Depression: Status: Acute Category: Medical Code(s): F32.A - Depression, unspecified (13) CAD (coronary artery disease): Status: Acute Qualifiers: Coronary Disease-Associated Artery/Lesion type: [place] artery [place] vs. transplanted heart: [place] heart Associated angina: with other forms of angina Qualified Code(s): I25.118 - Atherosclerotic heart disease of [place] coronary artery with other forms of angina pectoris Category: Medical Code(s): I25.10 - Atherosclerotic heart disease of [place] coronary artery without angina pectoris (14) BPH (benign prostatic hyperplasia): Status: Acute Category: Medical Code(s): N40.0 - Benign prostatic hyperplasia without lower urinary tract symptoms (15) HTN (hypertension): Status: Chronic Qualifiers: Hypertension type: primary hypertension Qualified Code(s): I10 - Essential (primary) hypertension Category: Medical Code(s): I10 - Essential (primary) hypertension (16) Schizoaffective disorder: Status: Acute Category: Medical Code(s): F25.9 - Schizoaffective disorder, unspecified Plan Mr. Blakely is a [id number] male with multiple comorbidities who presented to the ER for altered mental status. Found to be in septic shock from suspected UTI and hypernatremia. Case discussed with ER physician, request admission to the ICU for further management of his septic shock, infection, electrolyte disturbances. I agreed to admit for further care. Seeing slight improvement in sodium. With improvement in mentation, downgraded to MedSurg. Stable off of norepinephrine for over 24 hours. Awaiting urine and blood cultures. Continues to require patient management. Problems addressed as follows: Septic shock Urinary tract infection Metabolic encephalopathy Hypernatremia -Patient presented with tachycardia of 122, tachypnea with respiratory rate 26. Afebrile. Workup concerning for UTI with grossly abnormal urine with 2+ leuk esterase, 20-50 white cells, trace bacteria. Chest imaging negative for pneumonia. -White count still elevated at 12.8, repeat CBC, CMP, magnesium ordered for the morning. -Continuevancomycin and Zosyn pending blood and urine cultures. -Hypernatremia likely from dehydration and sepsis. Slowly improving, monitoring every 12 hours today. Sodium 151 this morning. Chloride 113. 1 L half-normal saline today for free water replacement. -Repeat BMP ordered for the afternoon TAURUS: -Slight improvement in kidney function with BUN 31, creatinine 1.5. Still above baseline of 1. Potassium 3.9, magnesium 2 point -Advance diet today, will administer 1 L of half-normal saline due to free water deficit Schizoaffective disorder: Continue Cymbalta 60 mg daily, holding gabapentin with TAURUS and encephalopathy. Continue Keppra 500mg twice daily, Vraylar 1.5mg daily Hypertension: Holding losartan in the setting of sepsis Hypothyroid: TSH pending. Previously well-controlled. Continue levothyroxine 50 mcg daily Diabetes: A1c 15 months ago 5.7. Repeat A1c pending. Kos 166 on arrival -Holding metformin and glargine. Continue sliding scale insulin with fingersticks ACHS. Obesity and debility complicate all aspects of his care Holding trazodone nightly for sleep due to sedation Continue tamsulosin 0.4 mg daily for BPH Continue bowel regimen from correction Full code Lovenox 40 mg daily Mechanical soft diet
[2024-04-10] MEDS: PANTOPRAZOLE 40MG VIAL 40 MG IV (20:50)
[2024-04-10] MEDS: ATORVASTATIN 40MG TABLET 40 MG PO (20:52)
[2024-04-10] MEDS: GABAPENTIN 100MG CAPSULE 200 MG PO (20:52)
[2024-04-10 21:40] LABS: POC Glucose,Bedside 159 (70-110)
[2024-04-11] VITALS (9 sets, daily range): BP systolic 95–134; BP diastolic 49–68; PULSE 61–90; RESP 16–18; TEMP 36.5–37; O2SAT 92–99; BMI 28.5
[2024-04-11] MEDS: PIPERACILLIN/TAZO 4.5 GM in 0.9 % SODIUM CHLORIDE 100 ML IV ×5 (01:20→23:53)
[2024-04-11 04:59] LABS: POC Glucose,Bedside 147 (70-110)
[2024-04-11 04:59] LABS: POC Glucose,Bedside 184 (70-110)
[2024-04-11 04:59] LABS: POC Glucose,Bedside 167 (70-110)
[2024-04-11 04:59] LABS: POC Glucose,Bedside 134 (70-110)
--- NOTE | 2024-04-11 06:03 | PC.NURSE ---
Pt is total care, Q2 turns, and remains altered, only alert to self. Pt has tolerated 1LNC for most part of shift. However, pt did require bipap near end of shift. Blood glucose monitored and treated per APR. Alarms and seizure pads in place.
[2024-04-11 06:06] LABS: POC Glucose,Bedside 127 (70-110)
--- NOTE | 2024-04-11 09:30 | PC.NURSE ---
Labs drawn from patients IV due to multiple unsuccessful sticks. aware. Patient also turned to room air at this time
[2024-04-11] MEDS: SENNOSIDES 8.6MG/DOCUSATE 50MG TABLET 2 TAB PO ×2 (09:42→20:17)
[2024-04-11] MEDS: DULOXETINE 30MG CAPSULE.DR 60 MG PO (09:42)
[2024-04-11] MEDS: LEVOTHYROXINE 50MCG (0.05MG) TAB 50 MCG PO (09:42)
[2024-04-11] MEDS: ASPIRIN 81MG CHEWABLE TABLET 81 MG PO (09:42)
[2024-04-11] MEDS: GABAPENTIN 100MG CAPSULE 200 MG PO ×3 (09:42→20:16)
[2024-04-11] MEDS: levETIRAcetam 500 MG TABLET 1000 MG PO ×2 (09:42→20:16)
[2024-04-11] MEDS: FOLIC ACID 1MG TABLET 1 MG PO (09:43)
[2024-04-11] MEDS: BACLOFEN 10MG TABLET 10 MG PO ×3 (09:43→20:16)
[2024-04-11] MEDS: TAMSULOSIN 0.4MG CAPSULE 0.4 MG PO (09:43)
[2024-04-11 09:49] LABS: Basophils # 0.1 K/mm3 (0-0.2); Basophils % 0.6 % (0.1-2.0); Eosinophils # 0.7 K/mm3 (0.0-0.4); Eosinophils % 5.9 % (0.1-12.0); Hematocrit 37.2 % (42.0-52.0); Lymphocytes # 1.6 K/mm3 (0.7-4.5); Lymphocytes % 13.1 % (10-50); Mean Corpuscular HGB Conc 29.6 g/dL (31.8-35.4); Mean Corpuscular Hemoglobin 32.4 pg (27.0-31.2); Mean Corpuscular Volume 109.4 fl (80-94); Mean Platelet Volume 10.2 fl (7.4-10.4); Monocytes # 0.6 K/mm3 (0.1-1.0); Monocytes % 5.1 % (1.7-9.3); Neutrophils # 9.1 K/mm3 (1.8-7.8); Neutrophils % 74.6 % (37.0-80.0); Platelet Count 230 K/mm3 (142-424); Red Cell Distribution Width 13.4 % (11.5-17.5); White Blood Count 12.1 K/mm3 (4.8-10.8)
[2024-04-11 09:57] LABS: Albumin Level 3.7 g/dl (3.5-5.0); Chloride 112 mmol/L (98-107)
[2024-04-11 10:00] LABS: Alanine Aminotransferase 21 U/L (12-78); Alkaline Phosphatase 60 U/L (38-126); Aspartate Amino Transferase 31 U/L (17-59); Bilirubin,Total 0.5 mg/dl (0.2-1.3); Blood Urea Nitrogen 21 mg/dl (9-20); Calcium 8.6 mg/dl (8.4-10.2); Carbon Dioxide 35 mmol/L (22.0-30.0); Creatinine Clearance Estimated 72 mL/min (50-200); Estimated Glomerular Filt Rate 61 ml/min (>60); GFR (African American) 74 ML/MIN (>60); Globulin 3.6 g/dL (1.3-3.2); Glucose 154 mg/dl (74-100); Magnesium 2.2 mg/dl (1.6-2.3); Total Protein,Serum 7.3 g/dl (6.3-8.2)
[2024-04-11 10:28] LABS: Sodium 150 mmol/L (136-145)
[2024-04-11 10:54] LABS: POC Glucose,Bedside 158 (70-110)
[2024-04-11] MEDS: humaLOG 100 UNITS/ML 10ML VIAL (SSI) SUBCUT ×2 (10:56→16:36)
[2024-04-11] MEDS: DEXTROSE 5 % IN WATER 1,000 ML 100 ML IV (10:57)
--- NOTE | 2024-04-11 11:20 | P.PN_ITS ---
Subjective *Date: 04/11/24 *Time: 11:20 Interval history: More alert today. Weaned to room air. Continues to have elevated sodium. Interactive and joking on exam. Denies nausea or vomiting. Hemodynamically stable. Afebrile Medical Exam Vital signs and Labs for Last 24 Hours: Vital Signs Temp Pulse Pulse Resp BP Pulse Ox O2 Del Method 04/11/24 11:00 Room Air 04/11/24 10:10 95 Room Air 04/11/24 09:00 Nasal Cannula 04/11/24 08:00 70 04/11/24 08:00 97.7 F 73 18 134/68 99 Nasal Cannula 04/11/24 06:51 BiPAP 04/11/24 05:00 Nasal Cannula 04/11/24 04:00 98.2 F 84 18 113/64 96 BiPAP 04/11/24 04:00 90 04/11/24 03:00 Nasal Cannula 04/11/24 01:00 Nasal Cannula 04/11/24 00:00 98.6 F 71 18 106/49 L 97 Nasal Cannula 04/11/24 00:00 70 04/10/24 23:00 Nasal Cannula 04/10/24 21:09 Nasal Cannula 04/10/24 21:00 Nasal Cannula 04/10/24 20:00 Nasal Cannula 04/10/24 20:00 70 04/10/24 20:00 98.4 F 84 18 123/74 97 Nasal Cannula 04/10/24 18:35 Nasal Cannula 04/10/24 17:00 Nasal Cannula 04/10/24 16:00 80 04/10/24 15:52 98.7 F 76 18 133/76 96 Nasal Cannula 04/10/24 15:00 Room Air 04/10/24 12:53 Nasal Cannula 04/10/24 12:00 80 04/10/24 11:43 98.3 F 68 16 122/60 99 Nasal Cannula O2 Flow Rate FiO2 04/11/24 11:00 04/11/24 10:10 04/11/24 09:00 1 04/11/24 08:00 04/11/24 08:00 1 04/11/24 06:51 04/11/24 05:00 1 04/11/24 04:00 04/11/24 04:00 04/11/24 03:00 1 04/11/24 01:00 04/11/24 00:00 1 04/11/24 00:00 04/10/24 23:00 1 04/10/24 21:09 2 28 04/10/24 21:00 1 04/10/24 20:00 1 04/10/24 20:00 04/10/24 20:00 1 04/10/24 18:35 1 04/10/24 17:00 04/10/24 16:00 04/10/24 15:52 2 04/10/24 15:00 04/10/24 12:53 2 04/10/24 12:00 04/10/24 11:43 2 Intake and Output 04/10/24 04/11/24 04/11/24 23:59 07:59 15:59 Intake Total 1270 / 1977 250 / 250 Output Total 0 / 1125 700 / 700 Balance 1270 / 852 250 / -450 -700 / -450 Intake: Intake, Oral Amount 270 / 270 Intake, Total IV Amount 1000 / 1707 250 / 250 Lactated Ringers 1000ML 1,000 250 / 656 ml @ 100 mls/hr IV .Q10H [facility] Rx #:[id number] Piperacillin/Tazo 4.5 gm In 0.9 100 / 151 % Sodium Chloride 100 ml @ 200 mls/hr IV Q6H [facility] Rx#:[id number] Sodium Chloride 0.45 % 1,000 ml 400 / 650 250 / 250 @ 100 mls/hr IV .Q10H [facility] Rx#: [id number] Vancomycin HCl 2,000 mg In 0.9 250 / 250 % Sodium Chloride 250 ml @ 125 mls/hr IV Q24H [facility] Rx#:[id number] Output: Output, Urine Amount 0 / 1125 700 / 700 Other: Number of Unmeasured Voids 0 0 Number of Bowel Movements 1 Weight 82.372 kg Patient Weight 04/11/24 23:59 Weight 82.372 kg Laboratory Results - last 24 hr 04/09/24 15:34: POC Glucose 184 H 04/09/24 19:54: POC Glucose 134 H 04/10/24 01:23: POC Glucose 147 H 04/10/24 07:06: POC Glucose 167 H 04/10/24 13:00: POC Glucose 112 H 04/10/24 14:40: Sodium 150 H, Potassium 3.7, Chloride 113 H, Carbon Dioxide 30, Anion Gap 10.7, BUN 27 H, Creatinine 1.20, Estimated Creat Clear 69, Estimated GFR 61, Est GFR ( Amer) 74 D, Glucose 134 H, Calcium 8.6 04/10/24 20:40: POC Glucose 159 H 04/11/24 05:58: POC Glucose 127 H 04/11/24 09:35: WBC 12.1 H, RBC 3.40 L, Hgb 11.0 L, Hct 37.2 L, MCV 109.4 H, MCH 32.4 H, MCHC 29.6 L, RDW 13.4, Plt Count 230, MPV 10.2, Neut % (Auto) 74.6, Lymph % (Auto) 13.1, [place] % (Auto) 5.1, Eos % (Auto) 5.9, Baso % (Auto) 0.6, Neut # (Auto) 9.1 H, Lymph # (Auto) 1.6, [place] # (Auto) 0.6, Eos # (Auto) 0.7 H, Baso # (Auto) 0.1, Sodium 150 H, Potassium 4.0, Chloride 112 H, Carbon Dioxide 35 H, Anion Gap 7.0, BUN 21 H, Creatinine 1.20, Estimated Creat Clear 72, Estimated GFR 61, Est GFR ( Amer) 74, Glucose 154 H, Calcium 8.6, Magnesium 2.2, Total Bilirubin 0.5, AST 31, ALT 21, Alkaline Phosphatase 60, Total Protein 7.3, Albumin 3.7, Globulin 3.6 H, Albumin/Globulin Ratio 1.0 L 04/11/24 10:46: POC Glucose 158 H I & O for Labs for Last 24 Hours: Intake & Output 04/08/24 04/09/24 04/10/24 04/11/24 23:59 23:59 23:59 23:59 Intake Total 155.537 / 522.714 5625 / 1977 250 / 250 Output Total 1125 / 1125 700 / 700 Balance 155.537 / 612.537 602 / 852 -450 / -450 Weight 108.862 kg 79.515 kg 82.372 kg Microbiology Reports for the Last 24 Hours: Microbiology 04/09/24 11:25 Urine,Catheterized Urine Culture - Preliminary 04/09/24 11:31 Blood Blood Culture - Preliminary NO GROWTH AFTER 24 HOURS 04/09/24 11:31 Blood Blood Culture - Preliminary NO GROWTH AFTER 24 HOURS Constitutional: Present no acute distress, obese, chronically ill appearing and cooperative Head: Present atraumatic and normocephalic ENT: Present normal exam Respiratory: Present normal respiratory effort; Absent rhonchi, wheezes or crackles Cardiac: Present Reg Rate and Rhythm GI: Present soft and normal bowel sounds; Absent distention or tenderness Comment:: Thin extremities, sarcopenia of legs. Skin: Present intact; Absent erythema Neuro: Present alert and awake Comment:: Interactive on exam. Answering questions appropriately. Oriented to self and place Assessment and Plan *Assessment and plan (1) Septic shock: Status: Resolved Category: Medical Code(s): A41.9 - Sepsis, unspecified organism; R65.21 - Severe sepsis with septic shock (2) Acute UTI: Status: Suspected Category: Medical Code(s): N39.0 - Urinary tract infection, site not specified (3) TAURUS (acute kidney injury): Status: Acute Category: Medical Code(s): N17.9 - Acute kidney failure, unspecified (4) Acute hypernatremia: Status: Acute Category: Medical Code(s): E87.0 - Hyperosmolality and hypernatremia (5) Acute metabolic encephalopathy: Status: Acute Category: Medical Code(s): G93.41 - Metabolic encephalopathy (6) Cerebral palsy: Status: Acute Category: Medical Code(s): G80.9 - Cerebral palsy, unspecified (7) HLD (hyperlipidemia): Status: Acute Qualifiers: Hyperlipidemia type: mixed hyperlipidemia Qualified Code(s): E78.2 - Mixed hyperlipidemia Category: Medical Code(s): E78.5 - Hyperlipidemia, unspecified (8) Diabetes mellitus: Status: Acute Category: Medical Code(s): E11.9 - Type 2 diabetes mellitus without complications (9) Debility: Status: Acute Category: Medical Code(s): R53.81 - Other malaise (10) RAJAN (obstructive sleep apnea): Status: Acute Category: Medical Code(s): G47.33 - Obstructive sleep apnea (adult) (pediatric) (11) GERD (gastroesophageal reflux disease): Status: Acute Category: Medical Code(s): K21.9 - Gastro-esophageal reflux disease without esophagitis (12) Depression: Status: Acute Category: Medical Code(s): F32.A - Depression, unspecified (13) CAD (coronary artery disease): Status: Acute Qualifiers: Coronary Disease-Associated Artery/Lesion type: [place] artery [place] vs. transplanted heart: [place] heart Associated angina: with other forms of angina Qualified Code(s): I25.118 - Atherosclerotic heart disease of [place] coronary artery with other forms of angina pectoris Category: Medical Code(s): I25.10 - Atherosclerotic heart disease of [place] coronary artery without angina pectoris (14) BPH (benign prostatic hyperplasia): Status: Acute Category: Medical Code(s): N40.0 - Benign prostatic hyperplasia without lower urinary tract symptoms (15) HTN (hypertension): Status: Chronic Qualifiers: Hypertension type: primary hypertension Qualified Code(s): I10 - Essential (primary) hypertension Category: Medical Code(s): I10 - Essential (primary) hypertension (16) Schizoaffective disorder: Status: Acute Category: Medical Code(s): F25.9 - Schizoaffective disorder, unspecified Plan Mr. Blakely is a [id number] male with multiple comorbidities who presented to the ER for altered mental status. Found to be in septic shock from suspected UTI and hypernatremia. Case discussed with ER physician, request admission to the ICU for further management of his septic shock, infection, electrolyte disturbances. I agreed to admit for further care. Sodium slow to improve. Awaiting urine and blood cultures. Continues to require patient management. Problems addressed as follows: Septic shock Urinary tract infection Metabolic encephalopathy Hypernatremia -Patient presented with tachycardia of 122, tachypnea with respiratory rate 26. Afebrile. Workup concerning for UTI with grossly abnormal urine with 2+ leuk esterase, 20-50 white cells, trace bacteria. Chest imaging negative for pneumonia. -White count slowly to improve, 12 today. Hemoglobin 11. repeat CBC, CMP, magnesium ordered for the morning. -Continue Zosyn pending blood and urine cultures. Discontinue vancomycin given no staph cultures for 48 hours. -Hypernatremia slowly improving. 150 today, chloride 112, repeat ordered for this afternoon with BMP. Correcting at less than or equal to 8 mEq/day. Will administer 1 L D5W at 100 cc an hour. Tolerating p.o. liquids. TAURUS: -Resolving, BUN 21, creatinine 1.2. Appears to be his baseline. Potassium 4.0. Schizoaffective disorder: Continue Cymbalta 60 mg daily, holding gabapentin with TAURUS and encephalopathy. Continue Keppra 500mg twice daily, Vraylar 1.5mg daily Hypertension: Holding losartan in the setting of sepsis Hypothyroid: TSH pending. Previously well-controlled. Continue levothyroxine 50 mcg daily Diabetes: A1c 15 months ago 5.7. Repeat A1c pending. Kos 166 on arrival -Holding metformin and glargine. Continue sliding scale insulin with fingersticks ACHS. Obesity and debility complicate all aspects of his care Holding trazodone nightly for sleep due to sedation Continue tamsulosin 0.4 mg daily for BPH Continue bowel regimen from shelter Full code Lovenox 40 mg daily Mechanical soft diet
[2024-04-11] MEDS: ENOXAPARIN 40MG/0.4ML SYRINGE 40 MG SUBCUT (12:53)
[2024-04-11 16:38] LABS: POC Glucose,Bedside 182 (70-110)
[2024-04-11 16:42] LABS: Chloride 106 mmol/L (98-107)
[2024-04-11 16:43] LABS: Potassium 3.4 mmoL/L (3.5-5.1); Sodium 145 mmol/L (136-145)
[2024-04-11 16:45] LABS: Blood Urea Nitrogen 19 mg/dl (9-20); Creatinine Clearance Estimated 72 mL/min (50-200); Estimated Glomerular Filt Rate 61 ml/min (>60); GFR (African American) 74 ML/MIN (>60)
[2024-04-11 16:46] LABS: Anion Gap 9.4 mEq/L (5-15); Calcium 8.3 mg/dl (8.4-10.2); Carbon Dioxide 33 mmol/L (22.0-30.0); Glucose 177 mg/dl (74-100)
[2024-04-11] MEDS: TRAMADOL 50MG TABLET 100 MG PO ×2 (18:18→23:54)
[2024-04-11 20:07] LABS: POC Glucose,Bedside 122 (70-110)
[2024-04-11] MEDS: PANTOPRAZOLE 40MG VIAL 40 MG IV (20:15)
[2024-04-11] MEDS: ATORVASTATIN 40MG TABLET 40 MG PO (20:15)
[2024-04-12] VITALS: BP 111/75; PULSE 76; PULSE 80; RESP 16; TEMP 36.9; O2SAT 96
[2024-04-12 04:00] VITALS: BP 115/66; PULSE 70; PULSE 74; RESP 16; TEMP 36.8; O2SAT 99; BMI 29.1
--- NOTE | 2024-04-12 04:23 | PC.NURSE ---
Pt is alert to self, and remains on RA. Pt has communicated better with staff this shift, and seems to be more alert, Pt is able to communicate needs. Pt has c/o pain in his left hand, this nurse did remove IV to left hand and treated pt for pain per MAR. Pt has tolerated IV antibiotics well, and continues to take PO crushed in berta pudding.
[2024-04-12] MEDS: PIPERACILLIN/TAZO 4.5 GM in 0.9 % SODIUM CHLORIDE 100 ML IV ×2 (05:46→11:41)
[2024-04-12 06:02] VITALS: O2SAT 94
[2024-04-12] MEDS: TIOTROPIUM 18MCG/PUFF INHALER 1 CAP IH (06:02)
[2024-04-12 06:03] LABS: POC Glucose,Bedside 139 (70-110)
[2024-04-12] MEDS: LEVOTHYROXINE 50MCG (0.05MG) TAB 50 MCG PO (06:11)
[2024-04-12 06:58] LABS: Basophils % 0.4 % (0.1-2.0); Eosinophils # 0.6 K/mm3 (0.0-0.4); Eosinophils % 5.6 % (0.1-12.0); Hematocrit 32.9 % (42.0-52.0); Lymphocytes # 1.9 K/mm3 (0.7-4.5); Lymphocytes % 18.9 % (10-50); Mean Corpuscular HGB Conc 30.4 g/dL (31.8-35.4); Mean Corpuscular Hemoglobin 32.1 pg (27.0-31.2); Mean Corpuscular Volume 105.4 fl (80-94); Mean Platelet Volume 10.3 fl (7.4-10.4); Monocytes # 0.6 K/mm3 (0.1-1.0); Monocytes % 5.7 % (1.7-9.3); Neutrophils # 7.1 K/mm3 (1.8-7.8); Neutrophils % 68.8 % (37.0-80.0); Platelet Count 195 K/mm3 (142-424); Red Blood Count 3.12 M/mm3 (4.60-6.20); Red Cell Distribution Width 13.3 % (11.5-17.5); White Blood Count 10.3 K/mm3 (4.8-10.8)
[2024-04-12 07:02] LABS: Albumin Level 3.5 g/dl (3.5-5.0); Chloride 108 mmol/L (98-107); Potassium 3.4 mmoL/L (3.5-5.1); Sodium 144 mmol/L (136-145)
[2024-04-12 07:04] LABS: Blood Urea Nitrogen 14 mg/dl (9-20); Creatinine Clearance Estimated 88 mL/min (50-200); Estimated Glomerular Filt Rate 75 ml/min (>60); GFR (African American) 91 ML/MIN (>60)
[2024-04-12 07:05] LABS: Alanine Aminotransferase 20 U/L (12-78); Albumin/Globulin Ratio 1.1 (1.1-1.8); Alkaline Phosphatase 62 U/L (38-126); Anion Gap 9.4 mEq/L (5-15); Aspartate Amino Transferase 25 U/L (17-59); Bilirubin,Total 0.6 mg/dl (0.2-1.3); Calcium 7.8 mg/dl (8.4-10.2); Carbon Dioxide 30 mmol/L (22.0-30.0); Globulin 3.1 g/dL (1.3-3.2); Glucose 134 mg/dl (74-100); Total Protein,Serum 6.6 g/dl (6.3-8.2)
--- NOTE | 2024-04-12 07:21 | P.DS_ITS ---
General Admission date:: 04/09/24 Discharge date: 04/12/24 HPI HPI HPI: Mr. Blakely is a 63-year-old male with history of CP, chronic respiratory failure and is supposed to wear BiPAP at night for RAJAN but does not wear it regularly, schizoaffective disorder, diabetes, hypothyroid. He presented to the ER via EMS due to worsening confusion and fatigue over the past 48 hours. Patient is usually interactive and conversational. He has had minimal interaction and not eating or drinking over the past 2 days. EMS was called and patient was brought to the ER for evaluation. Found to be tachycardic, febrile, hypotensive. Concern for septic shock. Initial workup concerning for urinary source for his infection. Treated with sepsis bolus and broad-spectrum antibiotics. Remained hypotensive necessitating initiation of norepinephrine for appropriate blood pressure with MAP greater than 65. Medicine consulted for admission and further management. On arrival to the ICU, patient is not able to give much history. Is somnolent. Will make eye contact but very slow to respond with minimal answer to any questions. Appears in moderate distress. Workup concerning for sodium of 154, chloride 112, creatinine 1.6 with baseline 1.0. Hospital Course Hospital Course Hospital Course: Mr. Blakely is a 63-year-old male with multiple comorbidities who presented to the ER for altered mental status. Found to be in septic shock from suspected UTI and hypernatremia. Case discussed with ER physician, request admission to the ICU for further management of his septic shock, infection, electrolyte disturbances. I agreed to admit for further care. Patient has hyponatremia and UTI. Showed gradual improvement with antibiotics and correction of sodium. Back to baseline mentation. Sodium normalized. Transition to oral antibiotics. Stable to discharge at this time. Problems addressed as follows: Septic shock, resolved Urinary tract infection Metabolic encephalopathy, resolved Hypernatremia -Patient presented with tachycardia of 122, tachypnea with respiratory rate 26. Afebrile. Workup concerning for UTI with grossly abnormal urine with 2+ leuk esterase, 20-50 white cells, trace bacteria. Chest imaging negative for pneumonia. Started on broad-spectrum antibiotics with Zosyn. Urine culture showing . Hyponatremia was treated with IV fluids and then oral fluids after he started taking p.o. intake. Sodium gradually improved from 155-144. Chloride coming down to 108 by day of discharge. Tolerating p.o. fluids. Will make adjustments to diuretics. Corrected appropriately less than 8 mEq a day. Stable to discharge. Back to baseline mentation. TAURUS: Resolving, kidney function normalized with BUN 14, creatinine 1. Schizoaffective disorder: Treated with lower dose Cymbalta during admission. Resume home regimen of Cymbalta twice daily at discharge. Continue Keppra 500mg twice daily, Vraylar 1.5mg daily Hypertension: Resume losartan at discharge. Decrease diuretics. See med rec for full details. Hypothyroid: TSH 0.79. Well-controlled. Continue levothyroxine 50 mcg daily Diabetes: A1c very well-controlled at 5.7. Two values 15 months apart stable at 5.7. Morning glucose 134. Recommend resuming his 75/25 insulin once daily, linagliptin 5 mg daily, and metformin 500 twice daily. Discontinue insulin glargine. Held trazodone during admission, resume nightly for sleep at discharge Continue tamsulosin 0.4 mg daily for BPH Continue bowel regimen from long-term Total time spent on discharge 32 minutes in counseling, documentation, chart review, and direct care with patient. Exam Data for Last 24 hours Vital signs and Labs for Last 24 Hours: Temp Pulse Resp BP Pulse Ox O2 Del Method O2 Flow Rate 98.3 F 74 16 115/66 94 L Room Air 1 04/12/24 04:00 04/12/24 04:00 04/12/24 04:00 04/12/24 04:00 04/12/24 06:02 04/12/24 06:35 04/11/24 09:00 FiO2 35 04/11/24 20:41 Laboratory Results - last 24 hr 04/11/24 09:35: WBC 12.1 H, RBC 3.40 L, Hgb 11.0 L, Hct 37.2 L, MCV 109.4 H, MCH 32.4 H, MCHC 29.6 L, RDW 13.4, Plt Count 230, MPV 10.2, Neut % (Auto) 74.6, Lymph % (Auto) 13.1, [place] % (Auto) 5.1, Eos % (Auto) 5.9, Baso % (Auto) 0.6, Neut # (Auto) 9.1 H, Lymph # (Auto) 1.6, [place] # (Auto) 0.6, Eos # (Auto) 0.7 H, Baso # (Auto) 0.1, Sodium 150 H, Potassium 4.0, Chloride 112 H, Carbon Dioxide 35 H, Anion Gap 7.0, BUN 21 H, Creatinine 1.20, Estimated Creat Clear 72, Estimated GFR 61, Est GFR ( Amer) 74, Glucose 154 H, Calcium 8.6, Magnesium 2.2, Total Bilirubin 0.5, AST 31, ALT 21, Alkaline Phosphatase 60, Total Protein 7.3, Albumin 3.7, Globulin 3.6 H, Albumin/Globulin Ratio 1.0 L 04/11/24 10:46: POC Glucose 158 H 04/11/24 16:15: Sodium 145, Potassium 3.4 L, Chloride 106, Carbon Dioxide 33 H, Anion Gap 9.4, BUN 19, Creatinine 1.20, Estimated Creat Clear 72, Estimated GFR 61, Est GFR ( Amer) 74, Glucose 177 H, Calcium 8.3 L 04/11/24 16:30: POC Glucose 182 H 04/11/24 19:59: POC Glucose 122 H 04/12/24 05:44: POC Glucose 139 H 04/12/24 06:33: WBC 10.3, RBC 3.12 L, Hgb 10.0 L, Hct 32.9 L, MCV 105.4 H, MCH 32.1 H, MCHC 30.4 L, RDW 13.3, Plt Count 195, MPV 10.3, Neut % (Auto) 68.8, Lymph % (Auto) 18.9, [place] % (Auto) 5.7, Eos % (Auto) 5.6, Baso % (Auto) 0.4, Neut # (Auto) 7.1, Lymph # (Auto) 1.9, [place] # (Auto) 0.6, Eos # (Auto) 0.6 H, Baso # (Auto) 0.0, Sodium 144, Potassium 3.4 L, Chloride 108 H, Carbon Dioxide 30, Anion Gap 9.4, BUN 14 D, Creatinine 1.00, Estimated Creat Clear 88, Estimated GFR 75, Est GFR ( Amer) 91 D, Glucose 134 H D, Calcium 7.8 L, Total Bilirubin 0.6, AST 25, ALT 20, Alkaline Phosphatase 62, Total Protein 6.6, Albumin 3.5, Globulin 3.1, Albumin/Globulin Ratio 1.1 I & O for Last 24 hours: Intake & Output 04/09/24 04/10/24 04/11/24 04/12/24 23:59 23:59 23:59 23:59 Intake Total 155.537 / 874.821 6317 / 1977 2676 / 3196 520 / 520 Output Total 1125 / 1125 1500 / 1500 900 / 900 Balance 155.537 / 612.537 602 / 852 1176 / 1696 -380 / -380 Weight 108.862 kg 79.515 kg 82.372 kg 84.232 kg Microbiology Reports for the Last 24 Hours: Microbiology 04/09/24 11:31 Blood Blood Culture - Preliminary NO GROWTH AFTER 48 HOURS 04/09/24 11:31 Blood Blood Culture - Preliminary NO GROWTH AFTER 48 HOURS 04/09/24 11:25 Urine,Catheterized Urine Culture - Preliminary Constitutional Constitutional: no acute distress, obese, chronically ill appearing and cooperative *Routine HEENT Exam Head: Present normocephalic Eye: Present EOMI and PERRL ENT: Present mucous membranes moist *Routine Neck Exam Neck: Present supple; Absent lymphadenopathy *Routine Respiratory Exam Respiratory: Present CTA bilaterally and distant breath sounds; Absent rhonchi, stridor, wheezes or crackles *Routine Cardiovascular Exam Cardiovascular: Present RRR *Routine Abdominal Exam Abdominal: Present soft and normoactive bowel sounds; Absent tenderness *Routine Rectal Exam Patient deferred: visual exam *Routine Exam Patient deferred: penile exam *Routine Extremities Exam Extremities: Absent cyanosis, clubbing or edema Comments: Sarcopenia of lower extremities, *Routine Skin Exam Skin: Present warm; Absent rash *Routine Neurological Exam Neurological: Present alert and normal speech; Absent altered mental status or moving all extremities Comments: Weak upper extremities but has function of both arms. Unable to move legs. Slow to respond to questions but answers are appropriate Results Data Completed and Pending Labs on day of discharge: Labs from last 24 hours 04/12/24 04/12/24 04/11/24 06:33 05:44 19:59 WBC 10.3 RBC 3.12 L Hgb 10.0 L Hct 32.9 L MCV 105.4 H MCH 32.1 H MCHC 30.4 L RDW 13.3 Plt Count 195 MPV 10.3 Neut % (Auto) 68.8 Lymph % (Auto) 18.9 [place] % (Auto) 5.7 Eos % (Auto) 5.6 Baso % (Auto) 0.4 Neut # (Auto) 7.1 Lymph # (Auto) 1.9 [place] # (Auto) 0.6 Eos # (Auto) 0.6 H Baso # (Auto) 0.0 Sodium 144 Potassium 3.4 L Chloride 108 H Carbon Dioxide 30 Anion Gap 9.4 BUN 14 D Creatinine 1.00 Estimated Creat Clear 88 Estimated GFR 75 Est GFR ( Amer) 91 D Glucose 134 H D POC Glucose 139 H 122 H Calcium 7.8 L Magnesium Total Bilirubin 0.6 AST 25 ALT 20 Alkaline Phosphatase 62 Total Protein 6.6 Albumin 3.5 Globulin 3.1 Albumin/Globulin Ratio 1.1 04/11/24 04/11/24 04/11/24 16:30 16:15 10:46 WBC RBC Hgb Hct MCV MCH MCHC RDW Plt Count MPV Neut % (Auto) Lymph % (Auto) [place] % (Auto) Eos % (Auto) Baso % (Auto) Neut # (Auto) Lymph # (Auto) [place] # (Auto) Eos # (Auto) Baso # (Auto) Sodium 145 Potassium 3.4 L Chloride 106 Carbon Dioxide 33 H Anion Gap 9.4 BUN 19 Creatinine 1.20 Estimated Creat Clear 72 Estimated GFR 61 Est GFR ( Amer) 74 Glucose 177 H POC Glucose 182 H 158 H Calcium 8.3 L Magnesium Total Bilirubin AST ALT Alkaline Phosphatase Total Protein Albumin Globulin Albumin/Globulin Ratio 04/11/24 09:35 WBC 12.1 H RBC 3.40 L Hgb 11.0 L Hct 37.2 L MCV 109.4 H MCH 32.4 H MCHC 29.6 L RDW 13.4 Plt Count 230 MPV 10.2 Neut % (Auto) 74.6 Lymph % (Auto) 13.1 [place] % (Auto) 5.1 Eos % (Auto) 5.9 Baso % (Auto) 0.6 Neut # (Auto) 9.1 H Lymph # (Auto) 1.6 [place] # (Auto) 0.6 Eos # (Auto) 0.7 H Baso # (Auto) 0.1 Sodium 150 H Potassium 4.0 Chloride 112 H Carbon Dioxide 35 H Anion Gap 7.0 BUN 21 H Creatinine 1.20 Estimated Creat Clear 72 Estimated GFR 61 Est GFR ( Amer) 74 Glucose 154 H POC Glucose Calcium 8.6 Magnesium 2.2 Total Bilirubin 0.5 AST 31 ALT 21 Alkaline Phosphatase 60 Total Protein 7.3 Albumin 3.7 Globulin 3.6 H Albumin/Globulin Ratio 1.0 L Preliminary micro results at discharge 04/09/24 11:31 Blood Culture - Preliminary Blood NO GROWTH AFTER 48 HOURS 04/09/24 11:31 Blood Culture - Preliminary Blood NO GROWTH AFTER 48 HOURS 04/09/24 11:25 Urine Culture - Preliminary Urine,Catheterized DS: Diagnosis Discharge Diagnosis (1) Septic shock: Status: Resolved Code(s): A41.9 - Sepsis, unspecified organism; R65.21 - Severe sepsis with septic shock (2) Acute UTI: Status: Suspected Code(s): N39.0 - Urinary tract infection, site not specified (3) TAURUS (acute kidney injury): Status: Acute Code(s): N17.9 - Acute kidney failure, unspecified (4) Acute hypernatremia: Status: Acute Code(s): E87.0 - Hyperosmolality and hypernatremia (5) Acute metabolic encephalopathy: Status: Acute Code(s): G93.41 - Metabolic encephalopathy (6) Cerebral palsy: Status: Acute Code(s): G80.9 - Cerebral palsy, unspecified (7) HLD (hyperlipidemia): Status: Acute Code(s): E78.5 - Hyperlipidemia, unspecified Qualifiers: Hyperlipidemia type: mixed hyperlipidemia Qualified Code(s): E78.2 - Mixed hyperlipidemia (8) Diabetes mellitus: Status: Acute Code(s): E11.9 - Type 2 diabetes mellitus without complications (9) Debility: Status: Acute Code(s): R53.81 - Other malaise (10) RAJAN (obstructive sleep apnea): Status: Acute Code(s): G47.33 - Obstructive sleep apnea (adult) (pediatric) (11) GERD (gastroesophageal reflux disease): Status: Acute Code(s): K21.9 - Gastro-esophageal reflux disease without esophagitis (12) Depression: Status: Acute Code(s): F32.A - Depression, unspecified (13) CAD (coronary artery disease): Status: Acute Code(s): I25.10 - Atherosclerotic heart disease of [place] coronary artery without angina pectoris Qualifiers: Associated angina: with other forms of angina Coronary Disease- Associated Artery/Lesion type: [place] artery [place] vs. transplanted heart: [place] heart Qualified Code(s): I25.118 - Atherosclerotic heart disease of [place] coronary artery with other forms of angina pectoris (14) BPH (benign prostatic hyperplasia): Status: Acute Code(s): N40.0 - Benign prostatic hyperplasia without lower urinary tract symptoms (15) HTN (hypertension): Status: Chronic Code(s): I10 - Essential (primary) hypertension Qualifiers: Hypertension type: primary hypertension Qualified Code(s): I10 - Essential (primary) hypertension (16) Schizoaffective disorder: Status: Acute Code(s): F25.9 - Schizoaffective disorder, unspecified Meds Home Medications and Allergies Home Medications ?Medication ?Instructions ?Recorded ?Confirmed ?Type atorvastatin 40 mg tablet (Lipitor) 40 mg PO HS 03/24/17 04/09/24 History isosorbide mononitrate 30 mg 30 mg PO DAILY 04/11/17 04/09/24 History tablet,extended release 24 hr magnesium oxide 400 mg PO HS 09/30/17 04/09/24 History acetaminophen 500 mg tablet 500 mg PO Q4HP PRN Fever Or Pain 11/10/17 04/09/24 History omeprazole 20 mg capsule,delayed 20 mg PO Q48H Acid Reflux 11/10/17 04/09/24 History release losartan 25 mg tablet (Cozaar) 25 mg PO DAILY 09/29/18 04/09/24 History aspirin 81 mg chewable tablet 81 mg PO DAILY 01/25/19 04/09/24 History loperamide 2 mg capsule 2 mg PO Q4HP PRN Diarrhea 01/25/19 04/09/24 History trazodone 100 mg tablet 100 mg PO HS 02/24/20 04/09/24 History metformin 500 mg tablet 500 mg PO BIDWMEAL 10/30/20 04/09/24 History docusate calcium 240 mg capsule 240 mg PO DAILYP PRN Constipation 02/09/21 History lactulose 10 gram/15 mL oral 30 ml PO DAILYP PRN Constipation 02/09/21 04/09/24 History solution duloxetine 60 mg capsule,delayed 60 mg PO DAILY 10/17/21 04/09/24 History release linagliptin 5 mg tablet (Tradjenta) 5 mg PO DAILY 10/17/21 04/09/24 History tiotropium bromide 1.25 2 puff inhalation DAILY 10/17/21 04/09/24 History mcg/actuation mist for inhalation (Spiriva Respimat) aluminum hydrox-magnesium carb 95 30 ml PO Q4HP PRN Acid Reflux 11/21/22 04/09/24 History mg-358 mg/15 mL oral suspension (Acid Gone Antacid) bisacodyl 5 mg tablet 10 mg PO DAILYP PRN Constipation 11/21/22 04/09/24 History duloxetine 30 mg capsule,delayed 30 mg PO DAILY 11/21/22 04/09/24 History release polyethylene glycol 3350 17 gram 17 g PO DAILY 11/21/22 04/09/24 History oral powder packet cyanocobalamin (vitamin B-12) 250 750 mcg PO DAILY 01/08/23 04/09/24 History mcg tablet (Vitamin B-12) sennosides 8.6 mg-docusate sodium 2 tab PO BID 01/08/23 04/09/24 History 50 mg tablet (Senexon-S) bisacodyl 10 mg rectal suppository 10 mg PA DAILYP PRN Constipation 01/28/23 04/09/24 History albuterol sulfate 90 mcg/actuation 2 inh inhalation QIDP PRN 03/10/23 04/09/24 History aerosol inhaler Shortness Of Breath Or Wheezing folic acid 800 mcg tablet 800 mcg PO DAILY 03/10/23 04/09/24 History guaifenesin 100 mg/5 mL oral 200 mg PO Q4HP PRN Cough 03/10/23 04/09/24 History liquid (Diabetic Tussin EX) multivitamin with folic acid 400 1 tab PO DAILY 03/10/23 04/09/24 History mcg tablet (Tab-A-Laron) levetiracetam 1,000 mg tablet 1,000 mg PO BID 05/01/23 04/09/24 History (Keppra) levothyroxine 50 mcg tablet 50 mcg PO DAILYDM 05/26/23 04/09/24 History coQ10 (ubiquinol) 100 mg capsule 100 mg PO BID #180 caps 07/16/23 04/09/24 Rx (Qunol Pranav CoQ10) gabapentin 400 mg capsule 400 mg PO TID NERVE PAIN #90 caps 11/17/23 04/09/24 Rx tramadol 50 mg tablet 100 mg (2 x 50 mg) PO Q6H #240 tabs 02/01/24 04/09/24 Rx cariprazine 1.5 mg capsule 1.5 mg PO DAILY 02/24/24 04/09/24 History (Vraylar) insulin lispro protamine-lispro 15 unit SQ AM 02/24/24 04/10/24 History 100 unit/mL (75-25) subcutaneous pen (Humalog Mix 75-25 KwikPen) tamsulosin 0.4 mg capsule (Flomax) 0.4 mg PO DAILY #30 caps 04/05/24 04/09/24 Rx baclofen 10 mg tablet 10 mg PO TID 04/09/24 04/09/24 History furosemide 40 mg tablet (Lasix) 40 mg PO MOWEFR 30 days #0 tabs 04/12/24 04/09/24 Rx spironolactone 50 mg tablet 25 mg (1/2 x 50 mg) PO DAILY 30 04/12/24 04/09/24 Rx days #0 tabs New Prescriptions to Start Prescriptions: Allergies Allergy/AdvReac Type Severity Reaction Status Date / Time morphine (MORPHINE) Allergy Mild HURTS Verified 04/05/24 12:54 STOMACH nitroglycerin AdvReac Mild Nausea Verified 04/05/24 12:54 Discharge Plan Disposition Patient Disposition: er Intermediate Care Fac Condition: Fair Follow up Plan Prescriptions/Medication Reconciliation: Continued atorvastatin [Lipitor] 40 mg tablet 40 mg PO HS losartan [Cozaar] 25 mg tablet 25 mg PO DAILY magnesium oxide 400 mg capsule 400 mg PO HS tamsulosin [Flomax] 0.4 mg capsule 0.4 mg PO DAILY Qty: 30 3RF metformin 500 mg tablet 500 mg PO BIDWMEAL Tradjenta 5 mg tablet 5 mg PO DAILY Spiriva Respimat 1.25 mcg/actuation mist 2 puff inhalation DAILY Acid Gone Antacid 95-358 mg/15 mL suspension 30 ml PO Q4HP PRN (Reason: Acid Reflux) polyethylene glycol 3350 17 gram powder in packet 17 g PO DAILY bisacodyl 5 mg tablet 10 mg PO DAILYP PRN (Reason: Constipation) duloxetine 30 mg capsule,delayed release(DR/EC) 30 mg PO DAILY Rx Instructions: TOTAL DOSE 90MG Vraylar 1.5 mg capsule 1.5 mg PO DAILY isosorbide mononitrate 30 mg tablet extended release 24 hr 30 mg PO DAILY bisacodyl 10 mg suppository 10 mg PA DAILYP PRN (Reason: Constipation) coQ10 (ubiquinol) [Qunol Pranav CoQ10] 100 mg capsule 100 mg PO BID Qty: 180 3RF gabapentin 400 mg capsule 400 mg PO TID Qty: 90 5RF tramadol 50 mg tablet 100 mg PO Q6H Qty: 240 2RF insulin lispro protamin-lispro [Humalog Mix 75-25 KwikPen] 100 unit/mL (75-25) insulin pen 15 unit SQ AM loperamide 2 MG capsule 2 mg PO Q4HP PRN (Reason: Diarrhea) aspirin 81 MG tablet,chewable 81 mg PO DAILY docusate calcium 240 MG capsule 240 mg PO DAILYP PRN (Reason: Constipation) lactulose 10 GM/15 ML solution 30 ml PO DAILYP PRN (Reason: Constipation) sennosides-docusate sodium [Senexon-S] 8.6-50 mg Tablet 2 tab PO BID cyanocobalamin (vitamin B-12) [Vitamin B-12] 250 mcg Tablet 750 mcg PO DAILY levetiracetam [Keppra] 1,000 mg tablet 1,000 mg PO BID baclofen 10 mg Tablet 10 mg PO TID acetaminophen 500 MG tablet 500 mg PO Q4HP PRN (Reason: Fever Or Pain) omeprazole 20 MG capsule,delayed release(DR/EC) 20 mg PO Q48H levothyroxine 50 mcg tablet 50 mcg PO DAILYDM duloxetine 60 mg capsule,delayed release(DR/EC) 60 mg PO DAILY Rx Instructions: TOTAL DOSE 90MG trazodone 100 MG tablet 100 mg PO HS guaifenesin [Diabetic Tussin EX] 100 mg/5 mL Liquid 200 mg PO Q4HP PRN (Reason: Cough) albuterol sulfate 90 mcg/actuation HFA aerosol inhaler 2 inh IH QIDP PRN (Reason: Shortness Of Breath Or Wheezing) folic acid 800 mcg tablet 800 mcg PO DAILY multivitamin with folic acid [Tab-A-Laron] 400 mcg Tablet 1 tab PO DAILY Changed furosemide [Lasix] 40 mg tablet 40 mg PO MOWEFR 30 Days Qty: 0 0RF spironolactone 50 mg tablet 25 mg PO DAILY 30 Days Qty: 0 0RF Discontinued insulin glargine [Lantus Solostar U-100 Insulin] 100 unit/mL (3 mL) insulin pen 15 unit SQ HS Qty: 15 5RF Problem Reconciliation Problems Reviewed?: Yes Patient Discharge Instructions ACTIVITY: Continue current activity DIET: continue same diet Print Language: [place] Providers Primary Care Provider: Fritz Lamar Admit Provider: Luis Go Attending Provider: Luis Go
--- NOTE | 2024-04-12 07:27 | P.PN_ITS ---
Subjective *Date: 04/12/24 *Time: : Medical Exam Vital signs and Labs for Last 24 Hours: Vital Signs Temp Pulse Pulse Resp BP Pulse Ox O2 Del Method 04/12/24 06:35 Room Air 04/12/24 06:02 94 L Room Air 04/12/24 05:00 Room Air 04/12/24 04:00 98.3 F 74 16 115/66 99 Room Air 04/12/24 04:00 70 04/12/24 03:00 Room Air 04/12/24 01:00 Room Air 04/12/24 00:00 96 Room Air 04/12/24 00:00 98.4 F 76 16 111/75 96 Room Air 04/12/24 00:00 80 04/11/24 23:00 Room Air 04/11/24 20:57 Room Air 04/11/24 20:41 97 BiPAP 04/11/24 20:41 04/11/24 20:00 98.4 F 76 18 95/52 L 99 BiPAP 04/11/24 20:00 Room Air 04/11/24 20:00 80 04/11/24 18:54 Room Air 04/11/24 17:00 Room Air 04/11/24 16:00 90 04/11/24 16:00 98.1 F 89 18 109/57 L 95 Room Air 04/11/24 15:00 Room Air 04/11/24 13:00 Room Air 04/11/24 12:00 70 04/11/24 11:48 98.3 F 61 18 119/68 92 L Room Air 04/11/24 11:00 Room Air 04/11/24 10:10 95 Room Air 04/11/24 09:42 Room Air 04/11/24 09:00 Nasal Cannula 04/11/24 08:00 70 04/11/24 08:00 97.7 F 73 18 134/68 99 Nasal Cannula O2 Flow Rate FiO2 04/12/24 06:35 04/12/24 06:02 04/12/24 05:00 04/12/24 04:00 04/12/24 04:00 04/12/24 03:00 04/12/24 01:00 04/12/24 00:00 04/12/24 00:00 04/12/24 00:00 04/11/24 23:00 04/11/24 20:57 04/11/24 20:41 35 04/11/24 20:41 35 04/11/24 20:00 04/11/24 20:00 04/11/24 20:00 04/11/24 18:54 04/11/24 17:00 04/11/24 16:00 04/11/24 16:00 04/11/24 15:00 04/11/24 13:00 04/11/24 12:00 04/11/24 11:48 04/11/24 11:00 04/11/24 10:10 04/11/24 09:42 04/11/24 09:00 1 04/11/24 08:00 04/11/24 08:00 1 Intake and Output 04/11/24 04/11/24 04/12/24 15:59 23:59 07:59 Intake Total 960 / 3196 1466 / 3196 520 / 520 Output Total 700 / 1500 800 / 1500 900 / 900 Balance 260 / 1696 666 / 1696 -380 / -380 Intake: Intake, Oral Amount 960 / 1560 480 / 1560 120 / 120 Intake, Total IV Amount 986 / 1636 400 / 400 Dextrose 5 % in Water 1,000 ml 786 / 1086 300 / 300 @ 100 mls/hr IV .Q10H [facility] Rx#: [id number] Piperacillin/Tazo 4.5 gm In 0.9 200 / 300 100 / 100 % Sodium Chloride 100 ml @ 200 mls/hr IV Q6H [facility] Rx#:[id number] Output: Output, Urine Amount 700 / 1500 800 / 1500 900 / 900 Other: Number of Unmeasured Voids 0 0 0 Number of Bowel Movements 1 Weight 84.232 kg Patient Weight 04/12/24 23:59 Weight 84.232 kg Laboratory Results - last 24 hr 04/11/24 09:35: WBC 12.1 H, RBC 3.40 L, Hgb 11.0 L, Hct 37.2 L, MCV 109.4 H, MCH 32.4 H, MCHC 29.6 L, RDW 13.4, Plt Count 230, MPV 10.2, Neut % (Auto) 74.6, Lymph % (Auto) 13.1, [place] % (Auto) 5.1, Eos % (Auto) 5.9, Baso % (Auto) 0.6, Neut # (Auto) 9.1 H, Lymph # (Auto) 1.6, [place] # (Auto) 0.6, Eos # (Auto) 0.7 H, Baso # (Auto) 0.1, Sodium 150 H, Potassium 4.0, Chloride 112 H, Carbon Dioxide 35 H, Anion Gap 7.0, BUN 21 H, Creatinine 1.20, Estimated Creat Clear 72, Estimated GFR 61, Est GFR ( Amer) 74, Glucose 154 H, Calcium 8.6, Magnesium 2.2, Total Bilirubin 0.5, AST 31, ALT 21, Alkaline Phosphatase 60, Tot al Protein 7.3, Albumin 3.7, Globulin 3.6 H, Albumin/Globulin Ratio 1.0 L 04/11/24 10:46: POC Glucose 158 H 04/11/24 16:15: Sodium 145, Potassium 3.4 L, Chloride 106, Carbon Dioxide 33 H, Anion Gap 9.4, BUN 19, Creatinine 1.20, Estimated Creat Clear 72, Estimated GFR 61, Est GFR ( Amer) 74, Glucose 177 H, Calcium 8.3 L 04/11/24 16:30: POC Glucose 182 H 04/11/24 19:59: POC Glucose 122 H 04/12/24 05:44: POC Glucose 139 H 04/12/24 06:33: WBC 10.3, RBC 3.12 L, Hgb 10.0 L, Hct 32.9 L, MCV 105.4 H, MCH 32.1 H, MCHC 30.4 L, RDW 13.3, Plt Count 195, MPV 10.3, Neut % (Auto) 68.8, Lymph % (Auto) 18.9, [place] % (Auto) 5.7, Eos % (Auto) 5.6, Baso % (Auto) 0.4, Neut # (Auto) 7.1, Lymph # (Auto) 1.9, [place] # (Auto) 0.6, Eos # (Auto) 0.6 H, Baso # (Auto) 0.0, Sodium 144, Potassium 3.4 L, Chloride 108 H, Carbon Dioxide 30, Anion Gap 9.4, BUN 14 D, Creatinine 1.00, Estimated Creat Clear 88, Estimated GFR 75, Est GFR ( Amer) 91 D, Glucose 134 H D, Calcium 7.8 L, Total Bilirubin 0.6, AST 25, ALT 20, Alkaline Phosphatase 62, Total Protein 6.6, Albumin 3.5, Globulin 3.1, Albumin/Globulin Ratio 1.1 I & O for Labs for Last 24 Hours: Intake & Output 04/09/24 04/10/24 04/11/24 04/12/24 23:59 23:59 23:59 23:59 Intake Total 155.537 / 940.770 1068 / 1976 2676 / 3196 520 / 520 Output Total 1125 / 1125 1500 / 1500 900 / 900 Balance 155.537 / 612.537 602 / 852 1176 / 1696 -380 / -380 Weight 108.862 kg 79.515 kg 82.372 kg 84.232 kg Microbiology Reports for the Last 24 Hours: Microbiology 04/09/24 11:31 Blood Blood Culture - Preliminary NO GROWTH AFTER 48 HOURS 04/09/24 11:31 Blood Blood Culture - Preliminary NO GROWTH AFTER 48 HOURS 04/09/24 11:25 Urine,Catheterized Urine Culture - Preliminary The patient's infection will respond to the chosen ABx?: Yes Is the patient receiving the right drug, dose, and route?: Yes Could a more targeted ABx be ordered?: No (NO GROWTH BLOOD CX X 2. URINE CX PENDING)
[2024-04-12 08:00] VITALS: BP 124/63; PULSE 70; PULSE 74; RESP 18; TEMP 36.9; O2SAT 97
[2024-04-12] MEDS: GABAPENTIN 100MG CAPSULE 200 MG PO ×2 (09:24→12:37)
[2024-04-12] MEDS: BACLOFEN 10MG TABLET 10 MG PO ×2 (09:24→12:37)
[2024-04-12] MEDS: DULOXETINE 30MG CAPSULE.DR 60 MG PO (09:24)
[2024-04-12] MEDS: ASPIRIN 81MG CHEWABLE TABLET 81 MG PO (09:24)
[2024-04-12] MEDS: SENNOSIDES 8.6MG/DOCUSATE 50MG TABLET 2 TAB PO (09:24)
[2024-04-12] MEDS: levETIRAcetam 500 MG TABLET 1000 MG PO (09:24)
[2024-04-12] MEDS: FOLIC ACID 1MG TABLET 1 MG PO (09:24)
[2024-04-12] MEDS: TAMSULOSIN 0.4MG CAPSULE 0.4 MG PO (09:24)
[2024-04-12 11:37] LABS: POC Glucose,Bedside 174 (70-110)
[2024-04-12 12:00] VITALS: PULSE 70
--- NOTE | 2024-04-12 12:53 | PC.NURSE ---
contacted pt brother Abraham regarding discharge today. brother aware and agreeable. report called to [facility]. awaiting ambulance for transfer.
--- NOTE | 2024-04-13 20:39 | EXP.EVENT.NO ---
Patient discharged to nursing facility. Urine culture growing pathogens resistant to Augmentin which was prescribed on discharge. I have sent in Bactrim for 7 days. Case management consulted to let nursing facility know.
== END 2024-04-12 14:08 | DRG 689 ==
LOC: ER 14:18 → ICU 14:20 → 2ND 04-10 07:59
PROVIDERS: Nurse Practitioner Family; Admitting Provider Internal Medicine Adolescent Medicine; Emergency Provider Emergency Medicine; PCP Family Medicine; Visit Provider Internal Medicine Adolescent Medicine
DX: N39.0 Urinary tract infection, site not specified (principal); G93.41 Metabolic encephalopathy; R65.21 Severe sepsis with septic shock; E87.0 Hyperosmolality and hypernatremia; N17.9 Acute kidney failure, unspecified; Z16.11 Resistance to penicillins; Z16.23 Resistance to quinolones and fluoroquinolones; I50.32 Chronic diastolic (congestive) heart failure; J96.10 Chronic respiratory failure, unspecified whether with hypoxia or hypercapnia; G80.9 Cerebral palsy, unspecified; E11.9 Type 2 diabetes mellitus without complications; E78.2 Mixed hyperlipidemia; G47.33 Obstructive sleep apnea (adult) (pediatric); I25.118 Atherosclerotic heart disease of native coronary artery with other forms of angina pectoris; E66.9 Obesity, unspecified; J44.9 Chronic obstructive pulmonary disease, unspecified; B95.2 Enterococcus as the cause of diseases classified elsewhere; N40.0 Benign prostatic hyperplasia without lower urinary tract symptoms; I11.0 Hypertensive heart disease with heart failure; E03.9 Hypothyroidism, unspecified; B95.61 Methicillin susceptible Staphylococcus aureus infection as the cause of diseases classified elsewhere; F25.9 Schizoaffective disorder, unspecified; Z79.02 Long term (current) use of antithrombotics/antiplatelets; Z79.899 Other long term (current) drug therapy; Z79.84 Long term (current) use of oral hypoglycemic drugs; Z79.890 Hormone replacement therapy; Z79.82 Long term (current) use of aspirin; Z68.29 Body mass index [BMI] 29.0-29.9, adult; Z80.9 Family history of malignant neoplasm, unspecified; Z83.3 Family history of diabetes mellitus; Z87.891 Personal history of nicotine dependence; Z95.818 Presence of other cardiac implants and grafts
CPT/HCPCS: 36415; 70450; 71045; 71275; 74174; 80048; 80053; 80307; 81001; 82803; 82962; 83036; 83605; 83690; 83735; 83880; 84145; 84443; 84484; 85025; 85610; 85730; 87040; 87086; 87088; 87186; 87636; 93005; 94640; 94660; 94761; 99291; J1650; J2543; J3370; J3372; J7060; J7120; Q9967

== ENCOUNTER 2024-04-21 15:52 | Outpatient (CLI) | payer MEDICARE, MEDICAID, SELFPAY ==
[2024-04-21 16:12] LABS: Microscopic, Urine URINE MICROSCOPIC (MICROSCOPIC)
[2024-04-21 16:23] LABS: Basophils # 0.1 K/mm3 (0-0.2); Basophils % 0.6 % (0.1-2.0); Eosinophils # 0.5 K/mm3 (0.0-0.4); Eosinophils % 4.5 % (0.1-12.0); Hemoglobin 11.2 g/dL (14.1-18.0); Lymphocytes # 1.8 K/mm3 (0.7-4.5); Lymphocytes % 18.3 % (10-50); Mean Corpuscular HGB Conc 31.1 g/dL (31.8-35.4); Mean Corpuscular Hemoglobin 32.2 pg (27.0-31.2); Mean Corpuscular Volume 103.4 fl (80-94); Mean Platelet Volume 10.8 fl (7.4-10.4); Monocytes # 0.7 K/mm3 (0.1-1.0); Monocytes % 7.3 % (1.7-9.3); Neutrophils # 6.8 K/mm3 (1.8-7.8); Neutrophils % 67.8 % (37.0-80.0); Platelet Count 287 K/mm3 (142-424); Red Blood Count 3.48 M/mm3 (4.60-6.20); Red Cell Distribution Width 14.4 % (11.5-17.5)
[2024-04-21 18:20] LABS: Albumin Level 4.1 g/dl (3.5-5.0); Chloride 101 mmol/L (98-107); Sodium 137 mmol/L (136-145)
[2024-04-21 18:21] LABS: Potassium 4.7 mmoL/L (3.5-5.1)
[2024-04-21 18:23] LABS: Alanine Aminotransferase 32 U/L (12-78); Albumin/Globulin Ratio 1.4 (1.1-1.8); Alkaline Phosphatase 91 U/L (38-126); Anion Gap 17.7 mEq/L (5-15); Aspartate Amino Transferase 27 U/L (17-59); Bilirubin,Total 0.3 mg/dl (0.2-1.3); Blood Urea Nitrogen 13 mg/dl (9-20); Calcium 9.1 mg/dl (8.4-10.2); Carbon Dioxide 23 mmol/L (22.0-30.0); Estimated Glomerular Filt Rate 61 ml/min (>60); GFR (African American) 74 ML/MIN (>60); Globulin 2.9 g/dL (1.3-3.2); Glucose 196 mg/dl (74-100)
[2024-04-21 22:10] LABS: Appearance,Urine CLEAR (Clear); Bilirubin,Urine Negative (Negative); Blood, Urine TRACE-I (Negative); Color,Urine YELLOW (Yellow); Glucose,Urine (UA) Negative (Negative); Ketones,Urine Negative (Negative); Leukocyte Esterase,Urine 3+ (Negative); Nitrate,Urine POSITIVE (Negative); Protein,Urine TRACE (Negative); Specific Gravity, Urine >= 1.030 (1.005-1.030); Urobilinogen,Urine 0.2 EU/dl (0.2)
[2024-04-22 00:28] LABS: Bacteria,Urine 4+ /lpf; WBC,Urine 50-100 #/hpf (0-3)
== END 2024-04-21 23:59 | disposition home or self-care (01) ==
LOC: LAB.DROPOF 15:55
PROVIDERS: PCP Family Medicine; Visit Provider Family Medicine
DX: N17.9 Acute kidney failure, unspecified (principal); A41.89 Other specified sepsis; N39.0 Urinary tract infection, site not specified; B96.89 Other specified bacterial agents as the cause of diseases classified elsewhere
CPT/HCPCS: 80053; 81001; 85025; 87086; 87088; 87186

== ENCOUNTER 2024-05-11 11:04 | Outpatient (CLI) | payer MEDICARE, MEDICAID, SELFPAY ==
--- NOTE | 2024-05-11 11:10 | FL_ITS ---
FINAL REPORT CLINICAL HISTORY: DIFFICULTY SWALLOWING FT 2:19 28.35 mGy FINDINGS: MODIFIED BARIUM SWALLOW History: Dysphagia FINDINGS: Fluoroscopy was provided for the speech pathologist to evaluate the swallowing mechanism. The patient was given several different consistencies of barium while the swallow was visualized fluoroscopically. The report of the speech pathologist should be consulted prior to making dietary decisions. FLUOROSCOPY TIME: 3 minutes IMPRESSION: Modified barium swallow under fluoroscopic guidance. Please see the report of the speech pathologist for Dietary recommendations. Films reviewed , interpreted and dictated by Dr. Minoo Solis. Transcribed by Jerome Dalal PA-C. Reviewed, Interpreted and Dictated by Minoo Solis MD Transcribed by LATRICIA Dobbs Authenticated and . [facility]
--- NOTE | 2024-05-11 13:16 | HMH.SLMBS2 ---
Speech & Language Evaluation Speech/Lang Modified Barium Swallow Start: 05/11/24 12:37 Freq: once Status: Complete Protocol: Document 05/11/24 12:37 [facility] (Rec: 05/11/24 13:16 [employer] laptop) WEAVING INSTRUCTOR Evaluation Information WEAVING INSTRUCTOR Evaluation Information Date of Evaluation: 05/11/24 Time of Evaluation: 11:30 Evaluation Type Initial Certification Reason for Referral difficulty swallowing/episodes severe coughing per MD order Does Patient Qualify for Service No Qualify/Failure Comment Based on clinical observations made throughout instrumental assessment, further skilled speech services are warranted at this time d/t impaired mastication & manipulation of bolus, however pt will be receiving services at assisted facility. MBS Recommendations Plan Pt/Guardian verbally ack understanding Yes of dx/prognosis/goals Diet Dietary Recommendations Mechanical Soft,Ground Meats, Thin Liquids SL Swallow Guidelines Assist w/all meals,Standard Aspiration Prec.,Eat at slow rate,Oral Care Education Treatment/Strategies Treatment Recommendations Chewing Exercises,Base of Tongue Exercises Strategy/Precaution Recommended Sitting Upright (90 deg),Chin Tuck,Small Bites and Sips, Alternate Liquids/Solids WEAVING INSTRUCTOR Patient History Section WEAVING INSTRUCTOR Patient History Primary Medical History PMHx includes cerebral palsy, schizoaffective disorder, RAJAN, and COPD. Does Patient have Reflux or GERD? Yes Does Patient Experience Coughing or Yes Choking Episodes? Coughing or Choking Comment In penitentiary report, it was stated that pt has severe choking incidents, however this was not observed during the instrumental assessment. Does Patient Avoid Certain Food Textures Yes /Consistencies? Food Textures/Consistencies Comment Pt was placed on pureed diet in nursing facility. Does Patient Utilize Compensatory No Strategies During Meals? Compensatory Strategies Comment Not stated in nursing report and pt u/a to report. Has Patient Experienced Significant No Weight Loss? Does Pt have Hx of Recurrent Pneumonias No or Respiratory Infections? Has Patient Noticed Change in Vocal No Quality? Mod Barium Swallow Study Patient Orientation Patient Orientation Person Oral Expression Ability Moderate Impairment Ability to Follow Directions Fair Is Patient able to Perform Volitional Yes Throat Clear? Is Patient able to Perform Volitional Yes Cough? Is Patient able to Manage Secretions Yes Independently? Mod Barium Swallow Set Up Radiologist Finesse Matta Patient Presentation: Awake,Alert,Appropriate Bolus Consistencies Trialed: Thin Liquids,Pudding,Puree, Mechanical Soft,Regular,Pill ( Barium Tablet) MBSS Observations Consistency & Strategy Trial Mechanical Soft Penetration/Aspiration Scale 1 PAS Amount Neither Pharyngeal Residual 0-9% Puree Penetration/Aspiration Scale 1 PAS Amount Neither Pharyngeal Residual 0-9% Pudding Penetration/Aspiration Scale 1 PAS Amount Neither Pharyngeal Residual 0-9% Thin Penetration/Aspiration Scale 2 PAS Amount Trace Pharyngeal Residual 0-9% Mod Barium Swallow Impressions Oral Phase Summary & Impressions Oral Phase: Impression Moderate Impairment Oral Phase: Labial Closure No Impairment (WFL) Oral Phase: Bolus Formation Pooling L/R No Impairment (WFL) Oral Phase: Bolus Formation Under Tongue No Impairment (WFL) Oral Phase: Bolus Formation Scattered No Impairment (WFL) Loss Oral Phase: Mastication Rotary Chew Moderate Impairment Oral Phase: Mastication Munching Moderate Impairment Oral Phase: Mastication Lateralization Moderate Impairment Oral Phase: Lingual Movement No Impairment (WFL) Oral Phase: Residue Clearing Mild Impairment Oral Phase: Summary Pt's mastication and manipulation of bolus were weak and prolonged during mechanical soft trial 2' weakness and poor dentition. Bolus was cleared into esophagus adequately with no pharyngeal residue, however pt was became very fatigued after single bite. WEAVING INSTRUCTOR did not trial regular d/t pt's difficulty with mechanical soft trial. Pharyngeal Phase Summary & Impressions Pharyngeal Phase: Impression Mild Impairment Pharyngeal Phase: A/P Lingual Propulsion No Impairment (WFL) Spills Pharyngeal Phase: Swallow Response Delay No Impairment (WFL) Pharyngeal Phase: Base of Tongue No Impairment (WFL) Pharyngeal Phase: Epiglottic Coverage Minimal Impairment Pharyngeal Phase: Laryngeal Elevation Minimal Impairment Pharyngeal Phase: Vallecular Retention Minimal Impairment Clearing Pharyngeal Phase: Pharyngeal Wall No Impairment (WFL) Residue Clearing Pharyngeal Phase: Piriform Sinus No Impairment (WFL) Retention Pharyngeal Phase: Summary No aspiration observed throughout study on any consistency trialed. Penetration observed during thin liquid trial, which was ejected from airway during swallow. WEAVING INSTRUCTOR trialed chin tuck strategy which was effective at reducing penetration. No pharyngeal residue observed during study. Pt was impulsive during barium tablet trial and swallowed tablet with no water. Tablet became lodged in vallecula, however was cleared with liquid wash. Aspiration Aspiration? No Silent Aspiration? No WEAVING INSTRUCTOR MBSS Goals Education Instructions provided WEAVING INSTRUCTOR discussed clinical observations made throughout study with pt and caregiver who expressed understanding. WEAVING INSTRUCTOR wrote clinical observations and recommendations on nursing report for SNF WEAVING INSTRUCTOR. Patient/Caregiver Able to Recall Able to recall/restate Information Reinforcement needed No PHYSICIAN CERTIFICATION: I certify the specified therapy services for Lalito Theodosis are required, authorized, and reviewed every 30 days.
== END 2024-05-11 23:59 | disposition home or self-care (01) ==
LOC: RAD 11:05
PROVIDERS: PCP Family Medicine; Visit Provider Family Medicine
DX: R13.10 Dysphagia, unspecified (principal)
CPT/HCPCS: 74230; 92611

== ENCOUNTER 2024-05-12 08:54 | Outpatient (CLI) | payer MEDICARE, MEDICAID, SELFPAY ==
[2024-05-12 09:36] LABS: Glucose,Fasting 114 mg/dl (74-100)
[2024-05-12 10:14] LABS: Hemoglobin A1C 5.4 % (4.0-6.0)
== END 2024-05-12 23:59 | disposition home or self-care (01) ==
LOC: LAB.DROPOF 09:20
PROVIDERS: PCP Nurse Practitioner Family; Visit Provider Nurse Practitioner Family
DX: E11.9 Type 2 diabetes mellitus without complications (principal); Z79.899 Other long term (current) drug therapy
CPT/HCPCS: 36415; 82947; 83036; 83735

== ENCOUNTER 2024-05-27 08:40 | Outpatient (CLI) | payer MEDICARE, MEDICAID, SELFPAY | END 2024-05-27 23:59 | disposition home or self-care (01) | LOC: LAB.DROPOF 08:41 | PROVIDERS: PCP Family Medicine; Visit Provider Family Medicine | DX: R30.0 Dysuria (principal) ==

== ENCOUNTER 2024-05-27 16:20 | Outpatient (CLI) | payer MEDICARE, MEDICAID, SELFPAY ==
[2024-05-27 16:29] LABS: Microscopic, Urine URINE MICROSCOPIC (MICROSCOPIC)
[2024-05-27 17:18] LABS: Bilirubin,Urine Negative (Negative); Blood, Urine Negative (Negative); Color,Urine YELLOW (Yellow); Glucose,Urine (UA) Negative (Negative); Ketones,Urine Negative (Negative); Leukocyte Esterase,Urine 2+ (Negative); Nitrate,Urine POSITIVE (Negative); Protein,Urine Negative (Negative); Specific Gravity, Urine 1.025 (1.005-1.030); Urobilinogen,Urine 0.2 EU/dl (0.2)
[2024-05-27 17:23] LABS: Appearance,Urine Slightly Cloudy (Clear)
[2024-05-27 18:26] LABS: Bacteria,Urine 2+ /lpf; WBC,Urine TNTC #/hpf (0-3)
== END 2024-05-27 23:59 | disposition home or self-care (01) ==
LOC: LAB.DROPOF 16:21
PROVIDERS: PCP Family Medicine; Visit Provider Family Medicine
DX: R30.0 Dysuria (principal); B96.89 Other specified bacterial agents as the cause of diseases classified elsewhere
CPT/HCPCS: 81001; 87086; 87088; 87186

== ENCOUNTER 2024-06-22 11:06 | Outpatient (CLI) | payer MEDICARE, MEDICAID, SELFPAY ==
--- NOTE | 2024-06-22 | CA_ITS ---
APPROVED REPORT Exam: Pharmacologic Technologist: Wendy Magdaleno Ht: 5 ft 5 in Wt: 200 lbs BSA: 1.98 m2 HR: 76 bpm BP: 109/64 mmHg Stress Test Details Test: Lexiscan HR Resting HR: 76 bpm Max Heart Rate (APMHR): 155.151949 bpm Max HR Achieved: 88 bpm Target HR (85% APMHR): 131.100846 bpm % of APMHR: 56.77 Recovery HR: 82 bpm BP Resting BP: 109.0/64.0 mmHg Max BP: 134.0/67.0 mmHg Recovery BP: 123.0/58.0 mmHg ECG Resting ECG: Normal sinus rhythm Stress ECG Conclusion Symptoms: Dyspnea, tingling in hands Arrhythmias/Ectopy: - ST-T Changes: Less than [address] depression Conclusion: EKG unremarkable due to Lexiscan infusion. Electronically signed by : Aleida Burgos MD 06/23/2024 13:02:57
--- NOTE | 2024-06-22 11:15 | CA_ITS ---
APPROVED REPORT EXAM: Comprehensive 2D, Doppler, and color-flow Echocardiogram Rn Burn: Heidi Gomez CRT Ht: 5 ft 3 in Wt: 200lbs BSA: 1.93 BP: 134/72 mmHg Indications: CP, COPD, SOB, CAD-stents, HTN, HLD Echo Enhancing Agent Comments: TDS:Patient scanned in wheeelchair/upright. Large chest circumference. M-Mode Dimensions RVDd 2.57 cm (0.9-2.6) LA Diam 2.27 cm (1.9-4.0) LVDd 3.85 cm (3.5-5.7) LVDs 2.46 cm (3.5-5.7) IVSd 1.64 cm (0.6-1.1) PWd 0.75 cm (0.6-1.1) EF (Teich) 66.50% FS 36.10% EDV (Teich) 63.90 mL TAPSE 1.51 (<1.7) ESV (Teich) 21.40 mL LV Diastology E Decel Time 120 (160-240 msec) E/A Ratio 0.98 MED A' 8.90 cm/s LAT A' 7.50 cm/s Aortic Valve AO Peak GR. 3.60 mmHg Mitral Valve MV A Velocity 55.0 (40-130 cm/s) E/A Ratio 0.98 Pulmonary Valve PV Peak Velocity 85.0 (50-150 cm/s) Tricuspid Valve TR P. Velocity 123.00 cm/s RAP Estimate 10.00 mmHg RVSP 16.10 mmHg Left Ventricle The left ventricle is normal size. The left ventricular systolic function is normal. The left ventricular ejection fraction is within the normal range. There is increased LV wall thickness. There is normal LV segmental wall motion. Diastolic function is normal. LVEF is 55%. Right Ventricle The right ventricle is not well-visualized, but grossly appears at least mildly dilated with likely normal RV function. Atria The left atrium size is normal. The right atrium is not well-visualized. The interatrial septum is not well-visualized. Aortic Valve The aortic valve is mildly thickened. There is no aortic valvular stenosis. No aortic regurgitation is present. Mitral Valve The mitral valve is normal in structure. No evidence of mitral valve stenosis. There is no mitral valve regurgitation noted. Tricuspid Valve Tricuspid valve is grossly normal in structure and function. Trace tricuspid regurgitation. There is insufficient TR jet to estimate RVSP. Pulmonic Valve The pulmonary valve is normal in structure. Trace pulmonic regurgitation. Great Vessels The aortic root is normal in size. IVC is normal in size and collapses >50% with inspiration. Pericardium There is no pericardial effusion. Other Information Study Quality: Technically Difficult Conclusion Technically difficult study due to poor acoustic windows. Normal LV systolic function. RV not well-visualized, but grossly appears at least mildly dilated with likely normal RV function. No significant valvular stenosis or regurgitation. Electronically signed by : Aleida Burgos MD 06/23/2024 23:37:12
--- NOTE | 2024-06-22 12:00 | NM_ITS ---
APPROVED REPORT Exam: Nuclear Stress Test Indication: cad, htn, diabetes, c.p., sob Patient Location: Outpatient Stress Tech: Wendy Magdaleno CT Tech:JUAN ANTONIO Wang RT (R)(N)(M) Ht: 5 ft 2 in Wt: 200 lbs HR: 73 bpm BP: 109/64 mmHg BSA: 1.91 m2 TID: 1.45 BMI: 36.5 History: cad, htn, diabetes, c.p., sob Procedure: Patient received 0.4 mg of intravenous Lexiscan, resting heart rate 73 bpm, resting blood pressure 109/64 mmHg, with Lexiscan maximum heart rate achieved was 89 bpm which is % of the maximum predicted heart rate and blood pressure was 104/57 mmHg. With Lexiscan, patient denied any complaint of chest pain. Cardiac Stress and Resting SPECT Images: Cardiac Stress and Resting SPECT images were obtained using technetium 99m Myoview 32.4 mCi stress and 9.70 mCi at rest. The patient is unable to lie on his abdomen. Therefore, prone stress imaging could not be performed. This may affect the diagnostic interpretation of the study findings. Resting and stress imaging in supine positions demonstrate no evidence of fixed or reversible perfusion defects. There is increase in transient ischemic dilatation ratio (TID 1.45), suggestive of possible multivessel disease or balanced ischemia. Gated imaging demonstrates normal global and regional LV systolic function. LVEF is calculated at 64%. Conclusion: No evidence of fixed or reversible perfusion defects. There is increase in transient ischemic dilatation ratio (TID 1.45), suggestive of possible multivessel disease or balanced ischemia. Gated imaging demonstrates normal global and regional LV systolic function. LVEF is calculated at 64%. Electronically signed by : Aleida Burgos MD 06/23/2024 12:53:43
[2024-06-22] MEDS: SODIUM CHLORIDE 0.9% 10ML SYR (RAD ONLY) 10 ML IV ×2 (13:38)
[2024-06-22] MEDS: ISOTOPE MYOVIEW (PER STUDY) 1 DOSE IV (13:38)
[2024-06-22] MEDS: REGADENOSON 0.4MG/5ML SYRINGE 0.4 MG IV (13:38)
== END 2024-06-22 23:59 | disposition home or self-care (01) ==
LOC: RT 11:07
PROVIDERS: PCP Family Medicine; Visit Provider Nurse Practitioner
DX: I11.0 Hypertensive heart disease with heart failure (principal); I50.32 Chronic diastolic (congestive) heart failure; E11.9 Type 2 diabetes mellitus without complications; J44.9 Chronic obstructive pulmonary disease, unspecified; E78.5 Hyperlipidemia, unspecified; I25.118 Atherosclerotic heart disease of native coronary artery with other forms of angina pectoris; R94.39 Abnormal result of other cardiovascular function study; Z95.5 Presence of coronary angioplasty implant and graft
CPT/HCPCS: 78452; 93017; 93018; 93306; A9502; J2785

== ENCOUNTER 2024-06-23 16:07 | Outpatient (CLI) | payer MEDICARE, MEDICAID, SELFPAY ==
[2024-06-23 16:46] LABS: Microscopic, Urine URINE MICROSCOPIC (MICROSCOPIC)
[2024-06-23 17:11] LABS: Appearance,Urine CLEAR (Clear); Bilirubin,Urine Negative (Negative); Blood, Urine 3+ (Negative); Color,Urine YELLOW (Yellow); Glucose,Urine (UA) 2+ (Negative); Ketones,Urine TRACE (Negative); Leukocyte Esterase,Urine 1+ (Negative); Nitrate,Urine Negative (Negative); Protein,Urine 3+ (Negative); Specific Gravity, Urine >= 1.030 (1.005-1.030); Urobilinogen,Urine 0.2 EU/dl (0.2)
[2024-06-23 17:59] LABS: RBC,Urine TNTC #/hpf (0-3); WBC,Urine TNTC #/hpf (0-3)
[2024-06-23 18:00] LABS: Bacteria,Urine 4+ /lpf
== END 2024-06-23 23:59 | disposition home or self-care (01) ==
LOC: LAB.DROPOF 16:09
PROVIDERS: PCP Family Medicine; Visit Provider Family Medicine
DX: I50.32 Chronic diastolic (congestive) heart failure (principal); E78.5 Hyperlipidemia, unspecified; I25.118 Atherosclerotic heart disease of native coronary artery with other forms of angina pectoris; I10 Essential (primary) hypertension
CPT/HCPCS: 81001; 87086; 87088; 87186

== ENCOUNTER 2024-07-07 07:16 | Outpatient (CLI) | payer MEDICARE, MEDICAID, SELFPAY ==
[2024-07-07 08:03] LABS: Blood Urea Nitrogen 16 mg/dl (9-20); Calcium 9.1 mg/dl (8.4-10.2); Carbon Dioxide 30 mmol/L (22.0-30.0); Chloride 100 mmol/L (98-107); Estimated Glomerular Filt Rate 75 ml/min (>60); GFR (African American) 91 ML/MIN (>60); Glucose 119 mg/dl (74-100); Sodium 138 mmol/L (136-145)
[2024-07-07 08:06] LABS: NT Pro Brain Natriuretic Pep. < 20.0 pg/mL (0-125)
== END 2024-07-07 23:59 | disposition home or self-care (01) ==
PROVIDERS: PCP Nurse Practitioner Family; Visit Provider Nurse Practitioner Family
DX: I50.9 Heart failure, unspecified (principal)
CPT/HCPCS: 36415; 80048; 83880

== ENCOUNTER 2024-07-14 07:23 | Outpatient (CLI) | payer MEDICARE, MEDICAID, SELFPAY ==
[2024-07-14 08:13] LABS: Chol/HDL Ratio 3.3 (1-3.5); Cholesterol 126 mg/dl (140-200); HDL Cholesterol 38 mg/dl (40-60); Triglycerides 234 mg/dl (30-150); VLDL Cholesterol 47 mg/dL (0-40)
[2024-07-14 08:24] LABS: Direct LDL Cholesterol 57.19 mg/dL (100-129)
[2024-07-14 08:28] LABS: Valproic Acid, (Depakene) < 10.0 ug/ml (50-100)
[2024-07-14 08:45] LABS: Prostate Specific Ag, Diagnost 2.12 ng/ml (0.0-4.0)
== END 2024-07-14 23:59 | disposition home or self-care (01) ==
PROVIDERS: PCP Nurse Practitioner Family; Visit Provider Nurse Practitioner Family
DX: E78.5 Hyperlipidemia, unspecified (principal); N40.0 Benign prostatic hyperplasia without lower urinary tract symptoms; F25.9 Schizoaffective disorder, unspecified
CPT/HCPCS: 36415; 80061; 80164; 84153

== ENCOUNTER 2024-08-23 07:22 | Outpatient (CLI) | payer MEDICARE, MEDICAID, SELFPAY ==
--- OUTSIDE RECORDS SUMMARY | 2024-08-23 07:25 | XMS_ITS | Clinical Summary ---
Author Organization Healthcare Address [address] [place] [address] Care Team Providers Care Steel Rule Die Maker Apprentice Name Role Phone Roney Travis MD Primary Care Provider + [phone] Allergies Active Allergy Reactions Criticality Noted Date Comments Morphine Nausea 06/02/2008 Nitroglycerin Other - please docum ent in the comment field,Nausea,Unknown - Patient states they do not know rxn details Low 06/02/2008 Medications Acetaminophen 500 MG capsule 01/08/2017 Acti ve albuterol 108 (90 Base) MCG/ACT inhaler Inhale 2 puffs every 6 (six) hours if needed. Active Docusate Sodium (DSS) 250 MG capsule 07/30/2016 Active Lantus SoloStar 100 UNIT/ML injection pen 01/22/2022 Activ e insulin glargine-yfgn (Semglee) 100 UNIT/ML injection pen 04/03/2021 Activ e loperamide (Imodium) 2 MG capsule 12/15/2021 Active losartan (Cozaar) 25 MG tablet 01/16/2022 Active magnesium oxide (Mag-Ox) 400 MG tablet 11/05/2016 Active metFORMIN (Glucophage) 500 MG tablet 01/25/2022 Active omeprazole (PriLOSEC) [address] capsule 01/17/2022 Active spironolactone (Aldactone) 50 MG tablet 01/14/2022 Active Spiriva Respimat 1.25 MCG/ACT aerosol solution 01/30/2022 Ac tive Active Problems Problem Noted Date Diagnosed Date RAJAN (obstructive sleep apnea) 02/05/2022 Immunizations Immunization Administration Dates Next Due Influenza, Unspecified 12/30/2016 Influenza, injectable, quadrivalent, preservativ e free 03/12/2017 Influenza, seasonal, injectable 02/17/2013,02/17 Pneumococcal Polysaccharide PPV23 03/12/2017 Family History Medical History Relation Name Comments Diabetes Father Heart attack Father Hyperlipidemia Father Hypertension Father Thyroid disease Father Diabetes Mother Hyperlipidemia Mother Hypertension Mother Stroke Mother Relation Name Status Comments Father Mother Social History Tobacco Use Types Packs/Day Years Used Date Smoking Tobacco: Never Smokeless Tobacco: Never Tobacco Cessation:Counseling Given: Not Answered Alcohol Use Standard Drinks/Week Comments Yes 0 (1 standard drink = 0.6 oz pure alcohol) Alcoholic Drinks/day: Social alcohol use PHQ-2 Answer Date Recorded Patient Health Questionnaire-2 Score 2 02/05/2022 PHQ-2A Answer Date Recorded Patient Health Questionnaire-2 Score 2 02/05/2022 Sex and Gender Information Value Date Recorded Sex Assigned at Not on file Legal Sex Male 7:56 PM EDT Gender Identity Not on file Sexual Orientation Not on file Last Filed Vital Signs Vital Sign Reading Time Taken Comments Blood Pressure 133/80 02/05/2022 8:21 AM EST Pulse 88 02/05/2022 8:21 AM EST Temperature 37.5 C (99.5 F) 06/04/2018 11:36 AM EDT Respiratory Rate 24 10/14/2017 11:35 AM EDT Oxygen Saturation 91% 02/05/2022 8:21 AM EST Inhaled Oxygen Concentration - - Weight 107 kg (236 lb 12.7 oz) 05/26/2017 11:27 AM EDT Height 157.5 cm (5' 2 ) 11/28/2017 11:10 AM EDT Body Mass Index 43.31 05/26/2017 11:27 AM EDT Plan of Treatment Health Maintenance Due Date Last Done Comments [facility]-Depression Screening 1958 [facility]-Infant/Child/Adol SDOH Screenings 1960 [facility]- SDOH Screenings 1976 [facility]-Adult SDOH Screenings 1976 [facility]-DTaP,Tdap,and Td Vaccines (1 - Tdap) 1977 CT Colonography 12/23/2003 Colonoscopy 12/23/2003 FIT-DNA 12/23/2003 FIT 12/23/2003 FOBT 12/23/2003 Sigmoidoscopy 12/23/2003 [facility]-Colorectal Cancer Screening 12/23/2003 [facility]-Zoster Vaccines (1 of 2) 2008 [facility]-Pneumococcal Vaccine: 50+ Years (2 of 2 - PCV) 03/12/2018 03/12/2017, 11/17/2010 [id number] Vaccine ( season) 2023 03/28/2020, 03/07/2020 [facility]-Influenza Vaccine (#1) 10/18/202403/12, 12/30/2016, 02/17/2013, Additional history exists [facility]-RSV Vaccine: 60+ Years or (1 - 1-dose 75+ series) 2033 HPV Vaccines Aged Out No longer eligi ble based on patient's age to complete this topic [facility]-HIB Vaccines Aged Out No longer e ligible based on patient's age to complete this topic [facility]-Hepatitis A Vaccines Aged Out No longer eligible based on patient's age to complete this topic [facility]-IPV Vaccines Aged Out No longer e ligible based on patient's age to complete this topic [facility]-Rotavirus Vaccines Aged Out No lo nger eligible based on patient's age to complete this topic Insurance MEDICARE [place] Care Teams Steel Rule Die Maker Apprentice Relationship Specialty Start Date End Date Roney Travis MD [address] [place] [address] PCP - General 06/30/20
--- OUTSIDE RECORDS SUMMARY | 2024-08-23 07:25 | XMS_ITS | Clinical Summary ---
Author Organization [facility] Address [facility] [address] [place] [address] Care Team Providers Care Rn Circulating Name Role Phone Unavailable Primary Care Provider Unavailabl e Allergies Active Allergy Reactions Criticality Noted Date Comments Morphine Nausea Only 03/21/2011 Nitroglycerin Nausea Only 03/21/2011 Medications * This document contains information received from the source organization and may not represent a complete record from that organization. acetaminophen (TYLENOL) 325 mg tabletIndicati ons:pain Take 325 mg by mouth every 4 hours as needed. Indications: Pain Active aluminum & magnesium hydroxide-kaushal thicone (ANTACID) 200-200-20 mg/5 mL SuspIndication s:heartburn Take 15 mL by mouth every 4 hours as needed. Indications: HEARTBURN Active loperamide (IMODIUM A-D) 2 mg tabletIndicati ons:diarrhea Take 2 mg by mouth 4 times daily as needed. Indications: DIARRHEA Active LORazepam (ATIVAN) 1 mg tabletIndicati ons:anxiety Take 1 mg by mouth every 4 hours as needed. Indications: ANXIETY Active traZODone (DESYREL) 100 mg tabletIndicati ons:insomnia Take 100 mg by mouth nightly. Indications: INSOMNIA Active albuterol (PROVENTIL;MARICHUY TOLIN) 90 mcg/Actuation inhaler Inhale 2 Puffs into the lungs every 6 hours as needed. Active aspirin 325 mg Take 325 mg by mouth daily. Active busPIRone (BUSPAR) 5 mg tablet Take 5 mg by mouth 3 times daily. 2 Active ciprofloxacin (CIPRO) 500 mg tablet Take 500 mg by mouth 2 times daily. Active citalopram (CELEXA) 40 mg tablet Take 40 mg by mouth daily. Active levothyroxine (SYNTHROID) 50 mcg tabletIndicati ons:hypothyroi dism Take 50 mcg by mouth daily. Indications: HYPOTHYROIDISM Active omega-3 acid ethyl esters (LOVAZA) 1 gram capsule Take 1 g by mouth 2 times daily. Active telmisartan (MICARDIS) 40 mg tablet Take 40 mg by mouth daily. Active mometasone (NASONEX) 50 mcg/Actuation nasal spray 2 Sprays by Nasal route 2 times daily. Active omeprazole (PRILOSEC) 20 mg Take 20 mg by mouth every morning (before breakfast). Active simvastatin (ZOCOR) 40 mg Take 40 mg by mouth daily. Active tamsulosin (FLOMAX) 0.4 mg capsule Take 0.4 mg by mouth daily. Active ARIPiprazole (ABILIFY) 10 mg Oral TabletIndicati ons:Schizoaffe ctive disorder, depressive type (HCC) Take 1 Tab by mouth daily. 30 Tab 5 6 Active buPROPion (WELLBUTRIN SR) 200 mg Oral Tablet Sustained ReleaseIndicat ions:Schizoaff ective disorder, depressive type (HCC) Take 1 Tab by mouth 2 times daily. 60 Tab 5 6 Active Active Problems Problem Noted Date Diagnosed Date Schizoaffective disorder, depressive type 2014 Anxiety 09/21/2014 Mental retardation 09/21/2014 Immunizations Immunization Administration Dates Next Due Influenza Patient Reported 11/17/2010 Pneumococcal Polysaccharide 23 Valent 11/17/2010 Surgical History Surgery Date Site/Laterality Comments HERNIA REPAIR bilateral inguinal hernia repair FRACTURE SURGERY right wrist fracture Medical History Medical History Date Comments MRSA (methicillin resistant staph aureus) culture positive Other disorders of kidney and ureter Heartburn Hypertension Seizures (HCC) as a child Unspecified sleep apnea cpap at home via nasal prongs Thyroid disease hypothyroidism Prostate BPH Depression , schizoaffectiv e disorder Mild intellectual disability COPD (chronic obstructive pulmonary disease) (HC C) CHF (congestive heart failure) (HCC) Family History Medical History Relation Name Comments Diabetes Father High Blood Pressure Father High Cholesterol Father Stroke Father Diabetes Mother Vision Loss Mother Relation Name Status Comments Father Mother Social History Tobacco Use Types Packs/Day Years Used Date Smoking Tobacco: Former Smokeless Tobacco: Never Tobacco Cessation:Counseling Given: No Alcohol Use Standard Drinks/Week Comments Not Currently 0 (1 standard drink = 0.6 oz pur e alcohol) Sexually Active Control Partners Comments Yes Condom Female Sex and Gender Information Value Date Recorded Sex Assigned at Not on file Legal Sex Male 3:19 AM EDT Gender Identity Not on file Sexual Orientation Not on file Obstetrics History Last Filed Vital Signs Vital Sign Reading Time Taken Comments Blood Pressure 131/65 03/29/2011 10:01 AM EST Pulse 86 03/29/2011 10:01 AM EST Temperature 36.8 C (98.3 F) 03/27/2011 3:00 PM EST Respiratory Rate 28 03/29/2011 10:0 1 AM EST Oxygen Saturation 94% 03/27/2011 4:00 PM EST Inhaled Oxygen Concentration - - Weight 111.9 kg (246 lb 9.6 oz) 012 11:00 PM EST Height 157.5 cm (5' 2 ) 03/23/2011 10:4 0 PM EST Body Mass Index 45.1 03/23/2011 10:40 PM EST Plan of Treatment Health Maintenance Due Date Last Done Comments Wellness Exam Medicare 1963 Hepatitis C Screening 1976 DTaP/TDaP/Td (1 - Tdap) 1977 Cologuard 12/23/2003 Colon Cancer Screening 12/23/2003 Colonoscopy 12/23/2003 FIT 12/23/2003 Sigmoidoscopy 12/23/2003 Virtual Colonography 12/23/2003 Zoster (1 of 2) 2008 Pneumococcal Vaccine 50+ (2 of 2 - PCV) 11/18/2011 11/17/2010 COVID-19 Vaccine (1 - 2023-2 5 season) 2023 AAA Screening 12/23/2023 Influenza Vaccine (#1) 2024 11/17/2010 Hepatitis B Vaccine Aged Out No longe r eligible based on patient's age to complete this topic Meningococcal B Vaccine Aged Out No l onger eligible based on patient's age to complete this topic Insurance [place] [address] [place] [address] [place] [address] [place] Member Subscriber Plan / Payer ( fective 2015-Present) Name:Lalito Blakely Relation to Subscriber:Self Name:Lalito Blakely Payer ID:Not on file Group ID:Not on file Type:Not on file Address: [address] [place] [id number]
[2024-08-23 07:47] LABS: Alanine Aminotransferase 18 U/L (12-78); Albumin Level 4.2 g/dl (3.5-5.0); Albumin/Globulin Ratio 1.1 (1.1-1.8); Alkaline Phosphatase 82 U/L (38-126); Anion Gap 13.9 mEq/L (5-15); Aspartate Amino Transferase 25 U/L (17-59); Bilirubin,Total 0.5 mg/dl (0.2-1.3); Blood Urea Nitrogen 18 mg/dl (9-20); Calcium 9.0 mg/dl (8.4-10.2); Carbon Dioxide 30 mmol/L (22.0-30.0); Chloride 99 mmol/L (98-107); Creatinine,Serum 1.20 mg/dl (0.66-1.25); Estimated Glomerular Filt Rate 61 ml/min (>60); GFR (African American) 74 ML/MIN (>60); Globulin 3.8 g/dL (1.3-3.2); Glucose 125 mg/dl (74-100); Potassium 3.9 mmoL/L (3.5-5.1); Sodium 139 mmol/L (136-145); Total Protein,Serum 8.0 g/dl (6.3-8.2)
[2024-08-23 10:51] LABS: Hemoglobin A1C 6.9 % (4.0-6.0)
== END 2024-08-23 23:59 | disposition home or self-care (01) ==
PROVIDERS: PCP Family Medicine; Visit Provider Family Medicine
DX: E11.9 Type 2 diabetes mellitus without complications (principal)
CPT/HCPCS: 36415; 80053; 83036

== ENCOUNTER 2024-12-01 06:59 | Outpatient (CLI) | payer MEDICARE, MEDICAID, SELFPAY ==
--- OUTSIDE RECORDS SUMMARY | 2024-12-01 07:02 | XMS_ITS | Clinical Summary ---
Author Organization [facility] ystem Address [address] [place] [address] Care Team Providers Care Cigarette Packer Name Role Phone Unavailable Primary Care Provider Unavailabl e Social History Tobacco Use Types Packs/Day Years Used Date Smoking Tobacco: Never Assessed Abuse Screen Answer Date Recorded Unsafe at Home or Work/School Not on file Feels Threatened by Someone? Not on file 10/2022 Does Anyone Keep You from Co ntacting Others or Doint Things Outside the Home? Not on file 11/25/2022 Physical Sign of Abuse Present Not on file 1 Housing Stability Answer Date Recorded Current Living Arrangements Not on file 10/2022 Potentially Unsafe Housing Conditions Not on kay e 11/25/2022 Family and Community Support Answer Zeus e Recorded Help with Day-to-Day Activities Not on file 11/25/2022 Lonely or Isolated Not on file 11/25/2022 Employment Answer Date Recorded Do you want help finding or keeping work or a vijay b? Not on file 11/25/2022 Disabilities Answer Date Recorded Concentrating, Remembering, or Making Decisions Difficulty Not on file 11/25/2022 Doing Errands Independently Difficulty Not on fi le 11/25/2022 Education Answer Date Recorded Help with school or training? Not on file Preferred Language Not on file 11/25/2022 Sex and Gender Information Value Date Recorded Sex Assigned at Not on file Legal Sex Male 11:52 AM EDT Gender Identity Not on file Sexual Orientation Not on file Last Filed Vital Signs Vital Sign Reading Time Taken Comments Blood Pressure 103/61 10/28/2012 1:02 PM EDT Pulse - - Temperature - - Respiratory Rate - - Oxygen Saturation - - Inhaled Oxygen Concentration - - Weight 110 kg (242 lb) 10/28/2012 1:02 PM EDT Height 157.5 cm (5' 2 ) 10/28/2012 1:02 PM EDT Body Mass Index 44.26 10/28/2012 1:02 PM EDT Plan of Treatment Health Maintenance Due Date Last Done Comments ANNUAL PHYSICAL 1960 HEPATITIS C SCREENING 1960 TDAP/TD VACCINES (1 - Tdap) 1977 COLOGUARD 12/23/2003 COLON CANCER SCREENING 5 YEAR SIGMOIDOSCOPY 12/23/2003 COLONOSCOPY 12/23/2003 COLORECTAL CANCER SCREENING 12/23/2003 CT COLONOGRAPHY 12/23/2003 FECAL OCCULT BLOOD TEST 12/23/2003 FIT Testing (1 year) 12/23/2003 Pneumococcal Vaccine 50+ (1 of 1 - PCV) 2008 ZOSTER VACCINE (1 of 2) 2008 AAA SCREEN ONCE 12/23/2023 INFLUENZA VACCINE 09/17/2024 COVID-19 Vaccine ( - season) 2024
--- OUTSIDE RECORDS SUMMARY | 2024-12-01 07:02 | XMS_ITS | Clinical Summary ---
Author Organization Healthcare Address [address] [place] [address] Care Team Providers Care Crown Assembly Machine Set Up Mechanic Name Role Phone Roney Travis MD Primary Care Provider + [phone] Allergies Active Allergy Reactions Criticality Noted Date [...] of 2 - PCV) 03/12/2018 03/12/2017, 11/17/2010 [id number] Vaccine ( season) 2024 03/28/2020, 03/07/2020 UKY-Influenza Vaccine (#1) 10/18/202403/12, 12/30/2016, [...] this topic Insurance MEDICARE [place]ICAID-[place] Care Teams Crown Assembly Machine Set Up Mechanic Relationship Specialty Start Date End Date Roney Travis MD [address] [place] [address] PCP - General 06/30/20
--- OUTSIDE RECORDS SUMMARY | 2024-12-01 07:02 | XMS_ITS | Clinical Summary ---
Author Organization [facility] OFFICE Address [facility] [address] [place] [address] Care Team Providers Care Battery Assembler Dry Cell Name Role Phone Unavailable Primary Care Provider [...] (2 of 2 - PCV) 11/18/2011 11/17/2010 AAA Screening 12/23/2023 COVID-19 Vaccine (1 - 2023-2 5 season) 2024 Influenza Vaccine (#1) 2024 11/17/2010 Hepatitis B [...] ID:Not on file Type:Not on file Address: [facility] [address] [place] [id number]
[2024-12-01 07:33] LABS: Chloride 99 mmol/L (98-107); Potassium 4.3 mmoL/L (3.5-5.1); Sodium 138 mmol/L (136-145)
[2024-12-01 07:36] LABS: Anion Gap 13.3 mEq/L (5-15); Blood Urea Nitrogen 20 mg/dl (9-20); Calcium 8.6 mg/dl (8.4-10.2); Carbon Dioxide 30 mmol/L (22.0-30.0); Creatinine,Serum 1.20 mg/dl (0.66-1.25); Estimated Glomerular Filt Rate 61 ml/min (>60); GFR (African American) 74 ML/MIN (>60); Glucose 124 mg/dl (74-100)
[2024-12-01 07:52] LABS: Free T4 (Free Thyroxine) 1.17 ng/dl (0.78-2.19)
[2024-12-01 08:08] LABS: Thyroid Stimulating Hormone 1.43 uIU/mL (0.465-4.68)
[2024-12-01 09:00] LABS: Hemoglobin A1C 5.6 % (4.0-6.0)
== END 2024-12-01 23:59 | disposition home or self-care (01) ==
PROVIDERS: PCP Nurse Practitioner Family; Visit Provider Nurse Practitioner Family
DX: E03.9 Hypothyroidism, unspecified (principal); E11.9 Type 2 diabetes mellitus without complications
CPT/HCPCS: 36415; 80048; 80177; 83036; 84439; 84443

== ENCOUNTER 2024-12-13 16:33 | Outpatient (CLI) | payer MEDICARE, MEDICAID, SELFPAY ==
--- OUTSIDE RECORDS SUMMARY | 2024-12-13 16:36 | XMS_ITS | Clinical Summary ---
Author Organization [facility] ystem Address [address] [place] [address] Care Team Providers Care Vulnerability Researcher Name Role Phone Unavailable Primary Care Provider [...]
--- OUTSIDE RECORDS SUMMARY | 2024-12-13 16:36 | XMS_ITS | Clinical Summary ---
Author Organization Healthcare Address [address] [place] [address] Care Team Providers Care Sales Planning Analyst Name Role Phone Roney Travis MD Primary Care Provider + [phone] Allergies Active Allergy Reactions Criticality Noted Date [...] of 2 - PCV) 03/12/2018 03/12/2017, 11/17/2010 [id number] Vaccine ( season) 2024 03/28/2020, 03/07/2020 UKY-Influenza [...] patient's age to complete this topic Insurance * Guarantor: Lalito Blakely Account Type Relation to Patient Date of Phone Billing Address Personal/Family Self [address] [address] MEDICARE MEDICAID[place] Care Teams Sales Planning Analyst Relationship Specialty Start Date End Date Roney Travis MD [address] [place] [address] PCP - General 06/30/20
--- OUTSIDE RECORDS SUMMARY | 2024-12-13 16:36 | XMS_ITS | Clinical Summary ---
Author Organization [facility] OFFICE Address [facility] [address] [place] [address] Care Team Providers Care Securities Underwriter Name Role Phone Unavailable Primary Care Provider [...] AAA Screening 12/23/2023 COVID-19 Vaccine (1 - 2024-2 6 season) 2024 Influenza Vaccine (#1) 2024 11/17/2010 [...] fective 2015-Present) Name:Lalito Blakely Relation to Subscriber:Self Name:Lailto Blakely Payer ID:Not on file Group ID:Not on file Type:Not on file Address: [facility] [address] [place] [id number]
[2024-12-13 18:05] LABS: Coronavirus 19, PCR Not Detected (NotDetected); Influenza A, PCR Not Detected (NotDetected); Influenza B, PCR Not Detected (NotDetected)
== END 2024-12-13 23:59 | disposition home or self-care (01) ==
PROVIDERS: PCP Family Medicine; Visit Provider Family Medicine
DX: E87.0 Hyperosmolality and hypernatremia (principal)
CPT/HCPCS: 87631

== ENCOUNTER 2024-12-18 15:34 | Inpatient (IN) | payer MEDICARE, MEDICAID, SELFPAY ==
[2024-12-18] VITALS (11 sets, daily range): BP systolic 99–141; BP diastolic 56–81; PULSE 54–109; RESP 16–19; TEMP 36.6–38.6; O2SAT 93–100; BMI 31.5; BMI 25.2
--- NOTE | 2024-12-18 15:38 | ED_ITS ---
<Statement entered by Luca Washington MD - 12/18/24 20:29> Luca Washington MD: I was consulted by the CAROLIN, and we discussed the complexity of the problems being addressed. I approved the treatment and management plan for this patient's care in the emergency department, thus performing a substantive portion of the medical decision making. Full sepsis bolus fluids considered but given history of heart failure were deferred. Discharge Plan Disposition Patient Disposition: Admitted Condition: Fair Clinical Impressions Clinical Impression: Sepsis, Pneumonia Discharge ED Provider: Luca Washington General Adult HPI <LATRICIA Carrillo - Last Filed: 12/18/24 18:07> General Chief complaint: Shortness of Breath/Dyspnea Stated complaint: Pneumonia, Temp 100.5, Decreased LOC Time Seen by Provider: 12/18/24 15:37 Mode of Arrival: EMS Source of Information: EMS and Medical Record History of Present Illness HPI narrative: 63-year-old male presents the emergency department via EMS for decreased oxygen saturation, concern for pneumonia, patient was treated for community- acquired/outpatient pneumonia with cefdinir and azithromycin for the last 3 days, noted to have fever today over 100.5 ?F, as well as worsening oxygen requirement around 88 on 2 L nasal cannula was increased to 3 to 4 L nasal cannula, patient at baseline is nonverbal, will respond with movements to yes or no questions, appears to be at his neurological behavioral baseline according to EMS and according assisted staff. Thus review of systems is limited, upon chart review patient has past medical history consistent with cerebral palsy, chronic dysphagia, HFpEF, hypothyroidism, osteopenia, GERD, depression, BPH, ADRIA, hypertension, RAJAN, spastic paraplegia. Initial triage vitals triggering sepsis criteria With tachycardia over 100 bpm, temperature at 101.5, 97% on 4 L nasal cannula. GCS which appears to be baseline upon my examination is 11. Please note that above description of symptoms, in this electronic medical record under categorization of recalled from ER triage doctor by RN are reflective of an initial nursing assessment, however, is not reflective of my full history and physical exam that was personally taken and clarified. Consequentially, this preceding description of symptoms, which may include the patient's categorized chief complaint in the EMR, do not reflect my personal clinical impression, and the ultimate description of history of present illness and patient stated complaints should be deferred to this section of the note. Unless stated otherwise or congruent with this section of the note, additional signs, symptoms, or incongruence should be interpreted as inaccurate with my clinical impression. Onset (ago): day(s) Related Data Home Medications ?Medication ?Instructions ?Recorded ?Confirmed atorvastatin 40 mg tablet (Lipitor) 40 mg PO HS 11/30/24 isosorbide mononitrate 30 mg 30 mg PO DAILY 04/11/17 1 tablet,extended release 24 hr magnesium oxide 400 mg PO HS 09/30/17 acetaminophen 500 mg tablet 500 mg PO Q4HP PRN Fever O r Pain 11/10/17 11/30/24 omeprazole 20 mg capsule,delayed 20 mg PO Q48H Acid Re flux 11/10/17 11/30/24 release losartan 25 mg tablet (Cozaar) 25 mg PO DAILY 09/29/18 11/30/24 aspirin 81 mg chewable tablet 81 mg PO DAILY 01/25/19 11/30/24 loperamide 2 mg capsule 2 mg PO Q4HP PRN Diarrhea 11/30/24 trazodone 100 mg tablet 100 mg PO HS 02/24/20 metformin 500 mg tablet 500 mg PO BIDWMEAL 10/30/20 11/30/24 docusate calcium 240 mg capsule 240 mg PO DAILYP PRN C onstipation 02/09/21 11/30/24 lactulose 10 gram/15 mL oral 30 ml PO DAILYP PRN Const ipation 02/09/21 11/30/24 solution duloxetine 60 mg capsule,delayed 60 mg PO DAILY 11/30/24 release linagliptin 5 mg tablet (Tradjenta) 5 mg PO DAILY 09/1911/30/24 tiotropium bromide 1.25 2 puff inhalation DAILY 09/1911/30/24 mcg/actuation mist for inhalation (Spiriva Respimat) aluminum hydrox-magnesium carb 95 30 ml PO Q4HP PRN Ac id Reflux 11/21/22 11/30/24 mg-358 mg/15 mL oral suspension (Acid Gone Antacid) bisacodyl 5 mg tablet 10 mg PO DAILYP PRN Constipa tion 11/21/22 11/30/24 polyethylene glycol 3350 17 gram 17 g PO DAILY 3 11/30/24 oral powder packet bisacodyl 10 mg rectal suppository 10 mg CO DAILYP PRN Constipation 01/28/23 11/30/24 albuterol sulfate 90 mcg/actuation 2 inh inhalation QI DP PRN 03/10/23 11/30/24 aerosol inhaler Shortness Of Breath Or Wheez ing guaifenesin 100 mg/5 mL oral 200 mg PO Q4HP PRN Cough 03/10/23 11/30/24 liquid (Diabetic Tussin EX) multivitamin with folic acid 400 1 tab PO DAILY 11/30/24 mcg tablet (Tab-A-Laron) levetiracetam 1,000 mg tablet 1,000 mg PO BID 05/01/23 11/30/24 (Keppra) insulin lispro protamine-lispro 15 unit SQ AM 02/24/24 11/30/24 100 unit/mL (75-25) subcutaneous pen (Humalog Mix 75-25 KwikPen) folic acid 800 mcg tablet 0.8 mg PO DAILY 06/02/24 cyanocobalamin (vitamin B-12) 250 750 mcg PO DAILY 11/30/24 mcg tablet furosemide 40 mg tablet (Lasix) 40 mg PO .MTWTHF 07/1311/30/24 levothyroxine 50 mcg tablet 50 mcg PO QAM 07/13/24 sennosides 8.6 mg tablet (Senna 17.2 mg PO BID 5 11/30/24 Laxative) cariprazine 1.5 mg capsule 1.5 mg PO DAILY 11/30/24 (Vraylar) Previous Rx's ?Medication ?Instructions ?Recorded tamsulosin 0.4 mg capsule (Flomax) 0.4 mg PO DAILY #30 caps 04/05/24 spironolactone 50 mg tablet 25 mg (1/2 x 50 mg) PO BERT LY 30 04/12/24 days #0 tabs gabapentin 600 mg tablet 600 mg PO TID #90 tabs 12/07 tramadol 50 mg tablet 100 mg (2 x 50 mg) PO Q6H #2 40 tabs 12/07/24 Allergies Allergy/AdvReac Type Severity Reaction Status Date / Time morphine (MORPHINE) Allergy Mild HURTS Verified 11/30/24 10:48 STOMACH nitroglycerin AdvReac Mild Nausea Verified 11/30/24 10:48 [facility] <LATRICIA Carrillo - Last Filed: 12/18/24 18:07> [facility] Disclaimer: The information contained in this section may have been updated after the patient was seen, as this information can be updated by other users. Medical History Acute respiratory failure with hypoxia and hypercarbia Acute UTI Lethargy Chronic heart failure with preserved ejection fraction (HFpEF) Urinary tract infection Cerebral palsy Poor dentition Renal cyst Schizoaffective disorder HLD (hyperlipidemia) Debility Diabetes mellitus Coronary arteriosclerosis in [place] artery Diverticulosis of large intestine without perforation or abscess without bleeding Generalized muscle weakness Other specified arthritis, multiple sites Primary osteoarthritis of right knee RAJAN (obstructive sleep apnea) BPH (benign prostatic hyperplasia) COPD (chronic obstructive pulmonary disease) Acute respiratory failure with hypoxia and hypercarbia Depression Anxiety Hypothyroid GERD (gastroesophageal reflux disease) Seizure Right lower lobe pneumonia Bronchomalacia Pulmonary emphysema Renal insufficiency Chronic subdural hematoma Intolerance to BiPAP/CPAP Edema Celiac artery stenosis Heart failure, NYHA class 2 Extreme obesity 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 Obesity, Class II, BMI 35-39.9, isolated (see actual BMI) Impingement syndrome of both shoulders Arthritis of sternoclavicular joint Osteopenia Anemia HHD (hypertensive heart disease) Surgical History H/O heart artery stent H/O cardiac catheterization History of carpal tunnel release History of arthroscopy of shoulder Family History Other Cancer Diabetes Social History Smoking Status: Smoker, status unknown tobacco type: cigarettes alcohol intake: never substance use type: denies use current occupational status: disabled Travel in the last 8 weeks?: None caregiver/support person: Yes household members: caregiver housing: assisted caffeine: No Have you lived/traveled outside [place] in past 30 days?: No Contact w/someone who lives/traveled outside [place] past 30 days?: No Exposure to someone with infectious disease in past 14 days?: No Do you have a fever (greater than 100.4 F or 38 C)?: No Have you tested positive for COVID-19?: No Exposed to someone with COVID-19 in past 14 days?: No Do you have a sore throat?: No Do you have a cough?: No Do you have any weakness?: No Do you have any diarrhea?: No Are you experiencing any unusual bleeding?: No Do you have any muscle aches/pain?: No Do you have any abdominal pain?: No Are you experiencing loss of taste or smell?: No Other Medical History Have you received the Flu Vaccine for this season: No Have you received the Pneumonia Vaccine: Yes (10/10/18) <LATRICIA Carrillo - Last Filed: 12/18/24 18:07> ROS Obtained: Yes All systems reviewed & no additional complaints except as documented Physical Exam <LATRICIA Carrillo - Last Filed: 12/18/24 18:07> General General appearance: alert and in no apparent distress Comment: GCS of 11, incomprehensible sounds follows commands/obeys command Head Head exam: atraumatic and normocephalic Eye Eye exam: Present PERRL and EOMI ENT ENT exam: Present mucous membranes moist Neck Neck exam: Present normal inspection Chest Chest inspection: Present normal inspection and symmetric chest wall rise Respiratory Respiratory exam: Present wheezes and other (Mild to moderate bilateral wheezes and crackles throughout bilateral lung ulna); Absent normal lung sounds bilaterally or respiratory distress Cardiovascular Cardiovascular exam: Present regular rate and normal rhythm Abdominal Exam Abdominal exam: Present soft; Absent tenderness, guarding, rebound or rigidity Extremities Exam Extremities exam: Present normal inspection Neurological Exam Neurological exam: Present alert and other (GCS of 11, obeys commands incomprehensible sounds appears to be neurological baseline, spastic paraplegia due to cerebral palsy) Psychiatric Psychiatric exam: Present normal affect Skin Skin exam: Present warm and dry Medical Decision Making <LATRICIA Carrillo - Last Filed: 12/18/24 18:07> Medical Records Medical records reviewed: Yes I reviewed the patient's medical records. Screening: Per USPSTF and CDC recommendations, given the prevalence of disease in our region, it is our hospital?s policy to screen for HIV and viral Hepatitis for all patients aged 18 and over and those with ongoing risk factors. Gaudencio Inquiry Pt receiving controlled substance: No Gaudencio was queried for this patient: No Vital Signs: 12/18/24 15:38 12/18/24 15:46 12/18/24 15:46 Temperature 101.5 F H Temperature Source Tympanic Pulse Rate 55 L Pulse Rate [Right Radial] 100 H Respiratory Rate 18 Blood Pressure 124/56 L Blood Pressure [Right Arm] 106/80 L Blood Pressure Mean [Right Arm] 88 Blood Pressure Source Blood Pressure Source [Right Arm] Automatic Cuff Blood Pressure Position Blood Pressure Position [Right Arm] Sitting 02 Sat by Pulse Oximetry 100 97 93 L Oxygen Delivery Method Nasal Cannula Nasal Cannula Nasal Cannula Oxygen Flow Rate (LPM) 4 4 4 12/18/24 16:00 12/18/24 16:30 12/18/24 17:12 Temperature Temperature Source Pulse Rate 54 L 109 H 98 H Pulse Rate [Right Radial] Respiratory Rate Blood Pressure 105/65 L 99/59 L 105/59 L Blood Pressure [Right Arm] Blood Pressure Mean [Right Arm] Blood Pressure Source Blood Pressure Source [Right Arm] Blood Pressure Position Blood Pressure Position [Right Arm] 02 Sat by Pulse Oximetry 94 L 94 L 93 L Oxygen Delivery Method Nasal Cannula Nasal Cannula Nasal Cannula Oxygen Flow Rate (LPM) 4 4 4 12/18/24 18:02 Temperature 101.5 F H Temperature Source Oral Pulse Rate 98 H Pulse Rate [Right Radial] Respiratory Rate 16 Blood Pressure 105/59 L Blood Pressure [Right Arm] Blood Pressure Mean [Right Arm] Blood Pressure Source Automatic Cuff Blood Pressure Source [Right Arm] Blood Pressure Position Supine Blood Pressure Position [Right Arm] 02 Sat by Pulse Oximetry Oxygen Delivery Method Nasal Cannula Oxygen Flow Rate (LPM) 4 Lab Data Lab results reviewed: Yes I reviewed the patient's lab results. Lab Results 12/18/24 15:35: WBC 15.3 H, RBC 3.68 L, Hgb 12.2 L, Hct 41.0 L, MCV 111.4 H, MCH 33.2 H, MCHC 29.8 L, RDW 14.1, Plt Count 247, MPV 10.7 H, Neut % (Auto) 78.0, Lymph % (Auto) 13.6, [place] % (Auto) 7.0, Eos % (Auto) 0.3, Baso % (Auto) 0.4, N eut # (Auto) 12.0 H, Lymph # (Auto) 2.1, [place] # (Auto) 1.1 H, Eos # (Auto) 0.1, Baso # (Auto) 0.1, PT 10.9, INR 0.98, Sodium 150 H, Potassium 3.9, Chloride 110 H, Carbon Dioxide 27, Anion Gap 16.9 H, BUN 35 H, Creatinine 1.50 H, Estimated Creat Clear 69, Estimated GFR 47 L, Est GFR ( Amer) 57 L, Glucose 241 H, Calcium 9.1, Magnesium 2.2, Total Bilirubin 0.6, AST 30, ALT 23, Alkaline Phosphatase 79, Troponin I < 0.01, NT-Pro-B Natriuret Pep 173 H, Total Protein 8.5 H, Albumin 3.8, Globulin 4.7 H, Albumin/Globulin Ratio 0.8 L 12/18/24 15:43: Lactate 2.8 H 12/18/24 15:54: Urine Color Yellow, Urine Appearance Clear, Urine pH 6.0, Ur Specific [place] 1.025, Urine Protein 1+ A, Urine Glucose (UA) Negative, Urine Ketones Negative, Urine Blood 1+ A, Urine Nitrate Negative, Urine Bilirubin Negative, Urine Urobilinogen 0.2, Ur Leukocyte Esterase Trace, Urine RBC None, Urine WBC 20-50, Ur Squamous Epith Cells 10-20, Urine Bacteria 2+ 12/18/24 16:06: VBG pH 7.42 H, VBG pCO2 41.5, VBG pO2 220.3 H, VBG HCO3 26.1, V BG Total CO2 27.4 H, VBG O2 Saturation 99.5 H, VBG Base Excess 1.6, VBG Lactic Acid 3.7 H 12/18/24 15:35 12/18/24 15:35 Orders (Tests/Meds): ED MEDICATIONS Discontinued Medications Generic Name Dose Route Start Last Admin Trade Name Freq PRN Reason Stop Dose Admin Acetaminophen 650 mg 12/18/24 17:23 Acetaminophen 325mg Tab PO 01/17/25 17:22 Q4HP PRN Fever or Mild Pain (1-3) Albuterol/Ipratropium 6 ml 12/18/24 17:19 12/18/24 17:26 Ipratropium/Albuterol 3 Ml Neb 12/18/24 17:20 6 ml ONCE ONE Administration Docusate Sodium 100 mg 12/19/24 09:00 Docusate Sodium 100 Mg Capsule PO 01/18/25 08:59 DAILY [facility] Enoxaparin Sodium 40 mg 12/19/24 09:00 Enoxaparin 40mg/0.4ml Syringe SUBCUT 01/18/25 08:59 DAILY [facility] Piperacillin Sod/Tazobactam 50 mls @ 100 mls/hr 12/18/24 15:49 12/18/24 16:46 Sod 3.375 gm/ Sodium Chloride IV 12/18/24 16:18 Infused ONCE ONE Infusion Vancomycin HCl 2,000 mg/ 250 mls @ 125 mls/hr 12/18/24 17:30 Sodium Chloride IV 12/18/24 19:29 ONCE ONE Dextrose/Sodium Chloride 1,000 mls @ 100 mls/hr 12/18/24 17:30 Dextrose 5%-0.45% Nacl Iv Soln IV 12/19/24 03:29 .Q10H [facility] Insulin Human Lispro 0 unit 12/18/24 21:00 Humalog 100 Units/Ml 10ml Vial (Ssi) SUBCUT 01/17/25 20:59 ACHS [facility] Protocol Iopamidol 70 ml 12/18/24 16:58 12/18/24 16:58 Iopamidol-370 (76%);100ml Bottle IV 12/18/24 16:59 70 ml ONCE ONE Administration Miscellaneous 1 each 12/18/24 17:30 Vancomycin Consult Request NOTAPPLIC 01/17/25 17:29 CONSULT PHARMACY [facility] Sodium Chloride 10 ml 12/18/24 16:58 12/18/24 16:58 Sodium Chloride 0.9% 10ml Syr (Rad Only) IV 12/18/24 16:59 10 ml ONCE ONE Administration Sodium Chloride 50 ml 12/18/24 16:58 12/18/24 16:58 0.9 % Sodium Chloride 50 Ml Vial IV 12/18/24 16:59 50 ml ONCE ONE Administration ORDERS Category Date Time Status CT angio chest PE protocol Stat Cat Scan 12/18/24 16:23 Completed XR chest portable Stat Exams 12/18/24 15:43 Completed Complete Blood Count Auto Diff Stat Lab 12/18/24 15:35 Completed Comprehensive Metabolic Panel Stat Lab 12/18/24 15:35 Completed Full Resp Panel w/COVID ([facility]) Routine Lab 12/18/24 16:00 Received Lactic Acid Stat Lab 12/18/24 15:43 Completed Magnesium Stat Lab 12/18/24 15:35 Completed NT Pro Brain Natriuretic Pep. Stat Lab 12/18/24 15:35 Completed PT INR [Prothrombin Time INR] Stat Lab 12/18/24 15:35 Completed Troponin I Stat Lab 12/18/24 15:35 Completed UA [Urinalysis and Microscopic] Stat Lab 12/18/24 15:54 Completed Blood Culture Stat Micro 12/18/24 15:43 Received Urine Culture Stat Micro 12/18/24 15:54 Received VBG [Venous Blood Gas] Stat RT 12/18/24 16:06 Completed Medical Decision Narrative: 63-year-old male presents emergency department via EMS from nursing facility for decreased oxygen saturation fever concern for pneumonia, differential diagnose include but not limited to, pneumonia, acute on chronic hypoxemic respiratory failure, pleural effusion, pulmonary edema, COPD exacerbation, heart failure exacerbation, cardiac arrhythmia, electrolyte disturbance, sepsis, acute among others I discussed this patient's case with the attending physician Dr. Washington Will obtain basic laboratory studies, EKG, lactic acid level magnesium level proBNP PT/INR, VBG, troponin, urinalysis, full respiratory panel, blood cultures, will start the patient on IV Zosyn, pharmacy to dose IV vancomycin, will hold off on fluid bolus at this time due to concerns for pulmonary edema/pleural effusion based on the patient's lung examination. CBC notable for leukocytosis 15.3, hemoglobin hematocrit are 12.2/41, MCV is significantly elevated at 111.4, otherwise unremarkable CBC Coags within normal limits I along with the attending physician reviewed the patient's chest x-ray, consolidation/concern for fluid, versus nodules upon the patient mediastinum, will obtain CTA chest with without contrast PE protocol VBG is noted for pH 7.42, venous lactic acid level is elevated at 3.7, bicarb within normal limits, pCO2 within normal limits. Lactic acidosis at 2.8 I reviewed the patient's chest x-ray along the corresponding radiologic report, passing the left lung base marrow represent atelectasis or pneumonia mild left pleural effusion Hypernatremia is noted at 150 in the patient's CMP, BUN is elevated 35, creatinine is elevated at 1.5, hyperglycemia at 241, proBNP is elevated at 173 Initial troponin is less than 0.01, proBNP is mildly elevated 170. Urinalysis notable 1+ proteinuria 1+ hematuria, trace leukocyte esterase. I reviewed the patient's CTA chest with and without contrast PE protocol, no evidence of pulmonary embolism to the segmental level no aneurysm of the aorta no dissection of the aorta, 15 mm mass in the anterior aspect of the right kidney 52 Hounsfield units, recommend nonemergent evaluation of the mass with MRI with and without contrast. Will also give patient 6 mm DuoNeb. I discussed this patient's case with the hospitalist physician Dr. Go at approximately 5:20 PM, he is in agreement with current admission plan/treatment plan for sepsis and pneumonia, I discussed need for admission with the patient the bedside. Nursing staff also discussed with the patient's assisted facility via phone about the patient's admission status. Microscopic analysis is notable for no RBCs 20-50 WBCs, 10-20 squamous epithelial cells and 2+ bacteria. <Luca Washington MD - Last Filed: 12/18/24 15:53> Vital Signs: 12/18/24 15:38 12/18/24 15:46 12/18/24 15:46 Temperature 101.5 F H Temperature Source Tympanic Pulse Rate 55 L Pulse Rate [Right Radial] 100 H Respiratory Rate 18 Blood Pressure 124/56 L Blood Pressure [Right Arm] 106/80 L Blood Pressure Mean [Right Arm] 88 Blood Pressure Source Blood Pressure Source [Right Arm] Automatic Cuff Blood Pressure Position Blood Pressure Position [Right Arm] Sitting 02 Sat by Pulse Oximetry 100 97 93 L Oxygen Delivery Method Nasal Cannula Nasal Cannula Nasal Cannula Oxygen Flow Rate (LPM) 4 4 4 12/18/24 16:00 12/18/24 16:30 12/18/24 17:12 Temperature Temperature Source Pulse Rate 54 L 109 H 98 H Pulse Rate [Right Radial] Respiratory Rate Blood Pressure 105/65 L 99/59 L 105/59 L Blood Pressure [Right Arm] Blood Pressure Mean [Right Arm] Blood Pressure Source Blood Pressure Source [Right Arm] Blood Pressure Position Blood Pressure Position [Right Arm] 02 Sat by Pulse Oximetry 94 L 94 L 93 L Oxygen Delivery Method Nasal Cannula Nasal Cannula Nasal Cannula Oxygen Flow Rate (LPM) 4 4 4 12/18/24 18:02 Temperature 101.5 F H Temperature Source Oral Pulse Rate 98 H Pulse Rate [Right Radial] Respiratory Rate 16 Blood Pressure 105/59 L Blood Pressure [Right Arm] Blood Pressure Mean [Right Arm] Blood Pressure Source Automatic Cuff Blood Pressure Source [Right Arm] Blood Pressure Position Supine Blood Pressure Position [Right Arm] 02 Sat by Pulse Oximetry Oxygen Delivery Method Nasal Cannula Oxygen Flow Rate (LPM) 4 Lab Data Lab Results 12/18/24 15:35: WBC 15.3 H, RBC 3.68 L, Hgb 12.2 L, Hct 41.0 L, MCV 111.4 H, MCH 33.2 H, MCHC 29.8 L, RDW 14.1, Plt Count 247, MPV 10.7 H, Neut % (Auto) 78.0, Lymph % (Auto) 13.6, [place] % (Auto) 7.0, Eos % (Auto) 0.3, Baso % (Auto) 0.4, N eut # (Auto) 12.0 H, Lymph # (Auto) 2.1, [place] # (Auto) 1.1 H, Eos # (Auto) 0.1, Baso # (Auto) 0.1, PT 10.9, INR 0.98, Sodium 150 H, Potassium 3.9, Chloride 110 H, Carbon Dioxide 27, Anion Gap 16.9 H, BUN 35 H, Creatinine 1.50 H, Estimated Creat Clear 69, Estimated GFR 47 L, Est GFR ( Amer) 57 L, Glucose 241 H, Calcium 9.1, Magnesium 2.2, Total Bilirubin 0.6, AST 30, ALT 23, Alkaline Phosphatase 79, Troponin I < 0.01, NT-Pro-B Natriuret Pep 173 H, Total Protein 8.5 H, Albumin 3.8, Globulin 4.7 H, Albumin/Globulin Ratio 0.8 L 12/18/24 15:43: Lactate 2.8 H 12/18/24 15:54: Urine Color Yellow, Urine Appearance Clear, Urine pH 6.0, Ur Specific [place] 1.025, Urine Protein 1+ A, Urine Glucose (UA) Negative, Urine Ketones Negative, Urine Blood 1+ A, Urine Nitrate Negative, Urine Bilirubin Negative, Urine Urobilinogen 0.2, Ur Leukocyte Esterase Trace, Urine RBC None, Urine WBC 20-50, Ur Squamous Epith Cells 10-20, Urine Bacteria 2+ 12/18/24 16:06: VBG pH 7.42 H, VBG pCO2 41.5, VBG pO2 220.3 H, VBG HCO3 26.1, V BG Total CO2 27.4 H, VBG O2 Saturation 99.5 H, VBG Base Excess 1.6, VBG Lactic Acid 3.7 H Orders (Tests/Meds): ED MEDICATIONS Discontinued Medications Generic Name Dose Route Start Last Admin Trade Name Freq PRN Reason Stop Dose Admin Acetaminophen 650 mg 12/18/24 17:23 Acetaminophen 325mg Tab PO 01/17/25 17:22 Q4HP PRN Fever or Mild Pain (1-3) Albuterol/Ipratropium 6 ml 12/18/24 17:19 12/18/24 17:26 Ipratropium/Albuterol 3 Ml Neb IH 12/18/24 17:20 6 ml ONCE ONE Administration Docusate Sodium 100 mg 12/19/24 09:00 Docusate Sodium 100 Mg Capsule PO 01/18/25 08:59 DAILY [facility] Enoxaparin Sodium 40 mg 12/19/24 09:00 Enoxaparin 40mg/0.4ml Syringe SUBCUT 01/18/25 08:59 DAILY [facility] Piperacillin Sod/Tazobactam 50 mls @ 100 mls/hr 12/18/24 15:49 12/18/24 16:46 Sod 3.375 gm/ Sodium Chloride IV 12/18/24 16:18 Infused ONCE ONE Infusion Vancomycin HCl 2,000 mg/ 250 mls @ 125 mls/hr 12/18/24 17:30 Sodium Chloride IV 12/18/24 19:29 ONCE ONE Dextrose/Sodium Chloride 1,000 mls @ 100 mls/hr 12/18/24 17:30 Dextrose 5%-0.45% Nacl Iv Soln IV 12/19/24 03:29 .Q10H [facility] Insulin Human Lispro 0 unit 12/18/24 21:00 Humalog 100 Units/Ml 10ml Vial (Ssi) SUBCUT 01/17/25 20:59 ACHS [facility] Protocol Iopamidol 70 ml 12/18/24 16:58 12/18/24 16:58 Iopamidol-370 (76%);100ml Bottle IV 12/18/24 16:59 70 ml ONCE ONE Administration Miscellaneous 1 each 12/18/24 17:30 Vancomycin Consult Request NOTAPPLIC 01/17/25 17:29 CONSULT PHARMACY [facility] Sodium Chloride 10 ml 12/18/24 16:58 12/18/24 16:58 Sodium Chloride 0.9% 10ml Syr (Rad Only) IV 12/18/24 16:59 10 ml ONCE ONE Administration Sodium Chloride 50 ml 12/18/24 16:58 12/18/24 16:58 0.9 % Sodium Chloride 50 Ml Vial IV 12/18/24 16:59 50 ml ONCE ONE Administration ORDERS Category Date Time Status CT angio chest PE protocol Stat Cat Scan 12/18/24 16:23 Completed XR chest portable Stat Exams 12/18/24 15:43 Completed Complete Blood Count Auto Diff Stat Lab 12/18/24 15:35 Completed Comprehensive Metabolic Panel Stat Lab 12/18/24 15:35 Completed Full Resp Panel w/COVID ([facility]) Routine Lab 12/18/24 16:00 Received Lactic Acid Stat Lab 12/18/24 15:43 Completed Magnesium Stat Lab 12/18/24 15:35 Completed NT Pro Brain Natriuretic Pep. Stat Lab 12/18/24 15:35 Completed PT INR [Prothrombin Time INR] Stat Lab 12/18/24 15:35 Completed Troponin I Stat Lab 12/18/24 15:35 Completed UA [Urinalysis and Microscopic] Stat Lab 12/18/24 15:54 Completed Blood Culture Stat Micro 12/18/24 15:43 Received Urine Culture Stat Micro 12/18/24 15:54 Received VBG [Venous Blood Gas] Stat RT 12/18/24 16:06 Completed ECG Data Tracing #1: Independently inter by me rate is 110, rhythm is irregular, axis is normal, intermittent bigeminy, no ST elevation in anatomical contiguous leads, QTc 375. Critical Care <LATRICIA Carrillo - Last Filed: 12/18/24 18:07> Critical Care Time Critical Care Time: Yes Attestation: On 12/18/24, the high probability of a clinically significant, sudden or life threatening deterioration of the following system(s) required my full and direct attention, intervention and personal management. The time I documented below is in addition to time spent performing reported procedures but includes the following listed in this critical care notation. Total Time Total Critical Care Time: 30
--- NOTE | 2024-12-18 15:38 | ECG_ITS ---
APPROVED REPORT Exam: Resting ECG HR:110 bpm ECG Measurements Heart Rate 110 AXES MT 157 P 37 QRSd 98 QRS 79 QT 310 T 44 QTc 375 Conclusion SINUS TACHYCARDIA WITH FREQUENT VENTRICULAR PREMATURE COMPLEXES LOW QRS VOLTAGE IN PRECORDIAL LEADS [QRS DEFLECTION < 1.0 mV IN CHEST LEADS] NONSPECIFIC T-WAVE ABNORMALITY ABNORMAL RHYTHM ECG Intermittent bigeminy Electronically signed by : RA BRAR, 12/18/2024 22:38:58
--- NOTE | 2024-12-18 15:43 | XR_ITS ---
PROCEDURE INFORMATION: Exam: XR Chest Exam date and time: 12/18/2024 3:47 PM Age: 63 years old Clinical indication: Shortness of breath; Additional info: Shortness of air, HX of recent pna TECHNIQUE: Imaging protocol: Radiologic exam of the chest. Views: 1 view. COMPARISON: CT ANGIO CHEST PE PROTOCOL 04/09/2024 12:49 PM FINDINGS: Lungs: Opacities in the left lung base may represent atelectasis or pneumonia.. Pleural spaces: Mild left pleural effusion.. Heart/Mediastinum: Cardiomegaly Bones/joints: Unremarkable. IMPRESSION: 1. Opacities in the left lung base may represent atelectasis or pneumonia.. 2. Mild left pleural effusion..
--- OUTSIDE RECORDS SUMMARY | 2024-12-18 15:53 | XMS_ITS | Clinical Summary ---
Author Organization [facility] [employer] OFFICE Address [facility] [employer] [facility] [address] [place] [address] Care Team Providers Care Rehanger Name Role Phone Unavailable Primary Care Provider [...] ID:Not on file Type:Not on file Address: [address] [place] [id number]
--- OUTSIDE RECORDS SUMMARY | 2024-12-18 15:53 | XMS_ITS | Clinical Summary ---
Author Organization Healthcare Address [address] [place] [address] Care Team Providers Care Modeler Name Role Phone Roney Travis MD Primary Care Provider + [phone] Allergies Active Allergy Reactions Criticality Noted Date [...] of 2 - PCV) 03/12/2018 03/12/2017, 11/17/2010 [id number] Vaccine ( season) 2024 03/28/2020, 03/07/2020 UKY-Influenza [...] this topic Insurance MEDICARE [place] Care Teams Modeler Relationship Specialty Start Date End Date Roney Travis MD [address] [place] [address] PCP - General 06/30/20
--- OUTSIDE RECORDS SUMMARY | 2024-12-18 15:53 | XMS_ITS | Clinical Summary ---
Author Organization [facility] Address [address] [place] [address] Care Team Providers Care Specialty Food Products Supervisor Name Role Phone Unavailable Primary Care Provider [...]
[2024-12-18] MEDS: PIPERCILLIN/TAZO 3.375 GM in 0.9 % SODIUM CHLORIDE 50 ML IV (15:59)
--- NOTE | 2024-12-18 16:02 | PC.NURSE ---
male purewick and new clean, dry brief placed on patient
[2024-12-18 16:05] LABS: Hematocrit 41.0 % (42.0-52.0); Hemoglobin 12.2 g/dL (14.1-18.0); Immature Granulocytes % 0.7 %; Mean Corpuscular HGB Conc 29.8 g/dL (31.8-35.4); Mean Corpuscular Hemoglobin 33.2 pg (27.0-31.2); Mean Corpuscular Volume 111.4 fl (80-94); Nucleated Red Blood Cells % 0 %; Platelet Count 247 K/mm3 (142-424); Red Blood Count 3.68 M/mm3 (4.60-6.20); Red Cell Distribution Width-SD 58.2 fL; White Blood Count 15.3 K/mm3 (4.8-10.8)
--- NOTE | 2024-12-18 16:08 | PC.NURSE ---
respiratory notified of VBG in lab
[2024-12-18 16:17] LABS: INR 0.98 (0.9-1.1); Magnesium 2.2 mg/dl (1.6-2.3); Prothrombin Time 10.9 seconds (10.1-12.5)
[2024-12-18 16:17] LABS: VBG HCO3 26.1 mmol/L (23-30); VBG PCO2 41.5 mmol/L (35-51); VBG PH 7.42 mmol/L (7.31-7.41); VBG PO2 220.3 mmol/L (28-40)
[2024-12-18 16:18] LABS: Alanine Aminotransferase 23 U/L (12-78); Albumin Level 3.8 g/dl (3.5-5.0); Albumin/Globulin Ratio 0.8 (1.1-1.8); Alkaline Phosphatase 79 U/L (38-126); Anion Gap 16.9 mEq/L (5-15); Aspartate Amino Transferase 30 U/L (17-59); Bilirubin,Total 0.6 mg/dl (0.2-1.3); Blood Urea Nitrogen 35 mg/dl (9-20); Calcium 9.1 mg/dl (8.4-10.2); Carbon Dioxide 27 mmol/L (22.0-30.0); Chloride 110 mmol/L (98-107); Creatinine Clearance Estimated 69 mL/min (50-200); Creatinine,Serum 1.50 mg/dl (0.66-1.25); Estimated Glomerular Filt Rate 47 ml/min (>60); GFR (African American) 57 ML/MIN (>60); Globulin 4.7 g/dL (1.3-3.2); Glucose 241 mg/dl (74-100); Potassium 3.9 mmoL/L (3.5-5.1); Total Protein,Serum 8.5 g/dl (6.3-8.2)
[2024-12-18 16:21] LABS: Lactate Venous 3.7 mmol/L (0.4-2.0)
--- NOTE | 2024-12-18 16:23 | CT_ITS ---
PROCEDURE INFORMATION: Exam: CTA Chest With Contrast Exam date and time: 12/18/2024 4:59 PM Age: 63 years old Clinical indication: Shortness of breath; Additional info: Shortness of air TECHNIQUE: Imaging protocol: Computed tomographic angiography of the chest with contrast. Exam focused on the arteries. 3D rendering (Not supervised by radiologist): MIP and/or 3D reconstructed images were created by the technologist. Radiation optimization: All CT scans at this facility use at least one of these dose optimization techniques: automated exposure control; mA and/or kV adjustment per patient size (includes targeted exams where dose is matched to clinical indication); or iterative reconstruction. Contrast material: ISOVUE; Contrast volume: 70 ml; Contrast route: INTRAVENOUS (IV); COMPARISON: CT ANGIO CHEST PE PROTOCOL 04/09/2024 12:49 PM FINDINGS: Pulmonary arteries: No evidence of pulmonary embolus to the segmental level. Aorta: No aneurysm of the aorta. No dissection of the aorta. Lungs: Unremarkable. No consolidation. No masses. Pleural spaces: Unremarkable. No pneumothorax. No pleural effusion. Heart: Unremarkable. No cardiomegaly. No pericardial effusion. Coronary arteries: Coronary artery calcifications may indicate coronary artery disease. Lymph nodes: Unremarkable. No enlarged lymph nodes. Kidneys: 15 mm mass in the anterior aspect of the right kidney 52 Hounsfield units.. Bones/joints: Degenerative changes in the glenohumeral joints . Compression fracture of unknown age in the midthoracic vertebral bodies. Soft tissues: Unremarkable. IMPRESSION: 1. No evidence of pulmonary embolus to the segmental level. 2. No aneurysm of the aorta. 3. No dissection of the aorta. 4. 15 mm mass in the anterior aspect of the right kidney 52 Hounsfield units..Recommend nonemergent evaluation of the mass with MR without and with contrast or CT without and with contrast. MR is preferred for masses under 1.5 cm. COMMENTS: Consistent with the [employer]'s Incidental Findings Committee white paper (J Am Bridget Radiol 2018): Any incidental renal lesion less than 1 cm or classified as too small to characterize, or any incidental cystic renal lesion characterized as simple-appearing, is likely benign. No follow-up imaging is recommended for these lesions per consensus recommendations based on imaging criteria.
[2024-12-18 16:25] LABS: Sodium 150 mmol/L (136-145)
[2024-12-18 16:27] LABS: NT Pro Brain Natriuretic Pep. 173 pg/mL (0-125)
--- NOTE | 2024-12-18 16:28 | PC.NURSE ---
Ronald Matos notified of NA of 150.
[2024-12-18 16:31] LABS: Troponin I < 0.01 ng/ml (0.00-0.034)
[2024-12-18 16:45] LABS: Microscopic, Urine URINE MICROSCOPIC (MICROSCOPIC)
[2024-12-18 16:45] LABS: Adenovirus,PCR Not Detected (NotDetected); Chlamydophila Pneumoniae, PCR Not Detected (NotDetected); Coronavirus 19, PCR Not Detected (NotDetected); Coronovirus HKU1,PCR Not Detected (NotDetected); Influenza A, PCR Not Detected (NotDetected); Influenza AH1, 2009 Not Detected (NotDetected); Influenza AH1, PCR Not Detected (NotDetected); Influenza AH3,PCR Not Detected (NotDetected); Influenza B, PCR Not Detected (NotDetected); Mycoplasma Pneumoniae, PCR Not Detected (NotDetected); Parainfluenza 1, PCR Not Detected (NotDetected); Parainfluenza 2, PCR Not Detected (NotDetected); Parainfluenza 3, PCR Not Detected (NotDetected); Parainfluenza 4, PCR Not Detected (NotDetected)
[2024-12-18 16:56] LABS: Bilirubin,Urine Negative (Negative); Color,Urine YELLOW (Yellow); Glucose,Urine (UA) Negative (Negative); Ketones,Urine Negative (Negative); Leukocyte Esterase,Urine TRACE (Negative); PH,Urine 6.0 (5.0-8.5); Protein,Urine 1+ (Negative); Specific Gravity, Urine 1.025 (1.005-1.030); Urobilinogen,Urine 0.2 EU/dl (0.2)
[2024-12-18] MEDS: SODIUM CHLORIDE 0.9% 10ML SYR (RAD ONLY) 10 ML IV (16:58)
[2024-12-18] MEDS: IOPAMIDOL-370 (76%);100ML BOTTLE 70 ML IV (16:58)
[2024-12-18] MEDS: 0.9 % SODIUM CHLORIDE 50 ML VIAL IV (16:58)
[2024-12-18 17:24] LABS: Bacteria,Urine 2+ /lpf; WBC,Urine 20-50 #/hpf (0-3)
[2024-12-18] MEDS: IPRATROPIUM/ALBUTEROL 3 ML NEB 6 ML IH (17:26)
--- NOTE | 2024-12-18 17:26 | EXP.HP ---
History of Present Illness *Admission Date: 12/18/24 *Reason for visit:: Weakness, confusion *History of present illness: Mr. Blakely is a 63-year-old male with history of CP, chronic respiratory failure on 2 L nasal cannula oxygen, is supposed to wear BiPAP at night for RAJAN but does not wear it regularly, schizoaffective disorder, diabetes, hypothyroid. He presented to the ER via EMS due to worsening confusion and fatigue over the past 24 hours. He was started on treatment for community-acquired pneumonia as an outpatient at his longterm with cefdinir and azithromycin 3 days ago. Developed temperature to 100.5 today. Increased oxygen requirement at his nursing facility to 4 L with baseline normally 2 L. Patient has minimal interaction at baseline. Can feed himself. Has had worsening confusion over the past 24 hours however. Was sent to the ER for evaluation. On arrival, found to have temperature of 101.5. GCS of 11 on arrival. White count elevated at 15. Tachycardic. Meeting sepsis criteria. Chest imaging in the ER positive for left lower lobe pneumonia. Also found to be hypernatremic with sodium of 150. Has struggled with hyponatremia in the past necessitating correction with IV fluids. Medicine consulted for admission and further management. On my evaluation, he opens his eyes to voice but is slow to respond. Responses are 1-2 word answers that are very weak to hear. Is off of his baseline mentation from my previous interactions with him. Unable to obtain any significant review of systems or history from patient. [facility] Disclaimer: The information contained in this section may have been updated after the patient was seen, as this information can be updated by other users. Medical History Acute respiratory failure with hypoxia and hypercarbia Acute UTI Lethargy Chronic heart failure with preserved ejection fraction (HFpEF) Urinary tract infection Cerebral palsy Poor dentition Renal cyst Schizoaffective disorder HLD (hyperlipidemia) Debility Diabetes mellitus Coronary arteriosclerosis in red devil artery Diverticulosis of large intestine without perforation or abscess without bleeding Generalized muscle weakness Other specified arthritis, multiple sites Primary osteoarthritis of right knee RAJAN (obstructive sleep apnea) BPH (benign prostatic hyperplasia) COPD (chronic obstructive pulmonary disease) Acute respiratory failure with hypoxia and hypercarbia Depression Anxiety Hypothyroid GERD (gastroesophageal reflux disease) Seizure Right lower lobe pneumonia Bronchomalacia Pulmonary emphysema Renal insufficiency Chronic subdural hematoma Intolerance to BiPAP/CPAP Edema Celiac artery stenosis Heart failure, NYHA class 2 Extreme obesity 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 Obesity, Class II, BMI 35-39.9, isolated (see actual BMI) Impingement syndrome of both shoulders Arthritis of sternoclavicular joint Osteopenia Anemia HHD (hypertensive heart disease) Surgical History H/O heart artery stent H/O cardiac catheterization History of carpal tunnel release History of arthroscopy of shoulder Family History Other Cancer Diabetes Social History Smoking Status: Smoker, status unknown tobacco type: cigarettes alcohol intake: never substance use type: denies use current occupational status: disabled Travel in the last 8 weeks?: None caregiver/support person: Yes household members: caregiver housing: longterm caffeine: No Have you lived/traveled outside US in past 30 days?: No Contact w/someone who lives/traveled outside US past 30 days?: No Exposure to someone with infectious disease in past 14 days?: No Do you have a fever (greater than 100.4 F or 38 C)?: No Have you tested positive for COVID-19?: No Exposed to someone with COVID-19 in past 14 days?: No Do you have a sore throat?: No Do you have a cough?: No Do you have any weakness?: No Do you have any diarrhea?: No Are you experiencing any unusual bleeding?: No Do you have any muscle aches/pain?: No Do you have any abdominal pain?: No Are you experiencing loss of taste or smell?: No Other Medical History Have you received the Flu Vaccine for this season: No Have you received the Pneumonia Vaccine: Yes (10/10/18) Review of Systems Review of Systems Review of systems:: unable to obtain (Due to patient's confusion, poor historian) Meds Home Medications and Allergies Home Medications ?Medication ?Instructions ?Recorded ?Confirmed ?Type atorvastatin 40 mg tablet (Lipitor) 40 mg PO HS 03/24/17 11/30/24 History isosorbide mononitrate 30 mg 30 mg PO DAILY 04/11/17 11/30/24 History tablet,extended release 24 hr magnesium oxide 400 mg PO HS 09/30/17 11/30/24 History acetaminophen 500 mg tablet 500 mg PO Q4HP PRN Fever Or Pain 11/10/17 11/30/24 History omeprazole 20 mg capsule,delayed 20 mg PO Q48H Acid Reflux 11/10/17 11/30/24 History release losartan 25 mg tablet (Cozaar) 25 mg PO DAILY 09/29/18 11/30/24 History aspirin 81 mg chewable tablet 81 mg PO DAILY 01/25/19 11/30/24 History loperamide 2 mg capsule 2 mg PO Q4HP PRN Diarrhea 01/25/19 11/30/24 History trazodone 100 mg tablet 100 mg PO HS 02/24/20 11/30/24 History metformin 500 mg tablet 500 mg PO BIDWMEAL 10/30/20 11/30/24 History docusate calcium 240 mg capsule 240 mg PO DAILYP PRN Constipation 02/09/21 11/30/24 History lactulose 10 gram/15 mL oral 30 ml PO DAILYP PRN Constipation 02/09/21 11/30/24 History solution duloxetine 60 mg capsule,delayed 60 mg PO DAILY 10/17/21 11/30/24 History release linagliptin 5 mg tablet (Tradjenta) 5 mg PO DAILY 10/17/21 11/30/24 History tiotropium bromide 1.25 2 puff inhalation DAILY 10/17/21 11/30/24 History mcg/actuation mist for inhalation (Spiriva Respimat) aluminum hydrox-magnesium carb 95 30 ml PO Q4HP PRN Acid Reflux 11/21/22 11/30/24 History mg-358 mg/15 mL oral suspension (Acid Gone Antacid) bisacodyl 5 mg tablet 10 mg PO DAILYP PRN Constipation 11/21/22 11/30/24 History polyethylene glycol 3350 17 gram 17 g PO DAILY 11/21/22 11/30/24 History oral powder packet bisacodyl 10 mg rectal suppository 10 mg FL DAILYP PRN Constipation 01/28/23 11/30/24 History albuterol sulfate 90 mcg/actuation 2 inh inhalation QIDP PRN 03/10/23 11/30/24 History aerosol inhaler Shortness Of Breath Or Wheezing guaifenesin 100 mg/5 mL oral 200 mg PO Q4HP PRN Cough 03/10/23 11/30/24 History liquid (Diabetic Tussin EX) multivitamin with folic acid 400 1 tab PO DAILY 03/10/23 11/30/24 History mcg tablet (Tab-A-Laron) levetiracetam 1,000 mg tablet 1,000 mg PO BID 05/01/23 11/30/24 History (Keppra) insulin lispro protamine-lispro 15 unit SQ AM 02/24/24 11/30/24 History 100 unit/mL (75-25) subcutaneous pen (Humalog Mix 75-25 KwikPen) tamsulosin 0.4 mg capsule (Flomax) 0.4 mg PO DAILY #30 caps 04/05/24 11/30/24 Rx spironolactone 50 mg tablet 25 mg (1/2 x 50 mg) PO DAILY 30 04/12/24 11/30/24 Rx days #0 tabs folic acid 800 mcg tablet 0.8 mg PO DAILY 06/02/24 11/30/24 History cyanocobalamin (vitamin B-12) 250 750 mcg PO DAILY 07/13/24 11/30/24 History mcg tablet furosemide 40 mg tablet (Lasix) 40 mg PO .MTWTHF 07/13/24 11/30/24 History levothyroxine 50 mcg tablet 50 mcg PO QAM 07/13/24 11/30/24 History sennosides 8.6 mg tablet (Senna 17.2 mg PO BID 07/13/24 11/30/24 History Laxative) cariprazine 1.5 mg capsule 1.5 mg PO DAILY 11/30/24 11/30/24 History (Vraylar) gabapentin 600 mg tablet 600 mg PO TID #90 tabs 12/07/24 Rx tramadol 50 mg tablet 100 mg (2 x 50 mg) PO Q6H #240 tabs 12/07/24 Rx New Prescriptions to Start Prescriptions: Allergies Allergy/AdvReac Type Severity Reaction Status Date / Time morphine (MORPHINE) Allergy Mild HURTS Verified 11/30/24 10:48 STOMACH nitroglycerin AdvReac Mild Nausea Verified 11/30/24 10:48 Exam Data for Last 24 hours Vital signs and Labs for Last 24 Hours: Temp Pulse Resp BP Pulse Ox O2 Del Method O2 Flow Rate 101.5 F H 98 H 18 105/59 L 93 L Nasal Cannula 4 12/18/24 15:38 12/18/24 17:12 12/18/24 15:38 12/18/24 17:12 12/18/24 17:12 12/18/24 17:12 12/18/24 17:12 Laboratory Results - last 24 hr 12/18/24 15:35: WBC 15.3 H, RBC 3.68 L, Hgb 12.2 L, Hct 41.0 L, MCV 111.4 H, MCH 33.2 H, MCHC 29.8 L, RDW 14.1, Plt Count 247, MPV 10.7 H, Neut % (Auto) 78.0, Lymph % (Auto) 13.6, Saunders % (Auto) 7.0, Eos % (Auto) 0.3, Baso % (Auto) 0.4, Neut # (Auto) 12.0 H, Lymph # (Auto) 2.1, Saunders # (Auto) 1.1 H, Eos # (Auto) 0.1, Baso # (Auto) 0.1, PT 10.9, INR 0.98, Sodium 150 H, Potassium 3.9, Chloride 110 H, Carbon Dioxide 27, Anion Gap 16.9 H, BUN 35 H, Creatinine 1.50 H, Estimated Creat Clear 69, Estimated GFR 47 L, Est GFR ( Amer) 57 L, Glucose 241 H, Calcium 9.1, Magnesium 2.2, Total Bilirubin 0.6, AST 30, ALT 23, Alkaline Phosphatase 79, Troponin I < 0.01, NT-Pro-B Natriuret Pep 173 H, Total Protein 8.5 H, Albumin 3.8, Globulin 4.7 H, Albumin/Globulin Ratio 0.8 L 12/18/24 15:43: Lactate 2.8 H 12/18/24 15:54: Urine Color Yellow, Urine Appearance Clear, Urine pH 6.0, Ur Specific [place] 1.025, Urine Protein 1+ A, Urine Glucose (UA) Negative, Urine Ketones Negative, Urine Blood 1+ A, Urine Nitrate Negative, Urine Bilirubin Negative, Urine Urobilinogen 0.2, Ur Leukocyte Esterase Trace, Urine RBC None, Urine WBC 20-50, Ur Squamous Epith Cells 10-20, Urine Bacteria 2+ 12/18/24 16:06: VBG pH 7.42 H, VBG pCO2 41.5, VBG pO2 220.3 H, VBG HCO3 26.1, VBG Total CO2 27.4 H, VBG O2 Saturation 99.5 H, VBG Base Excess 1.6, VBG Lactic Acid 3.7 H I & O for Last 24 hours: Intake & Output 12/15/24 12/16/24 12/17/24 12/18/24 23:59 23:59 23:59 23:59 Intake Total 50 / 50 Balance 50 / 50 Weight 99.79 kg Constitutional Constitutional: mild distress, obese, chronically ill appearing, disheveled, cooperative and somnolent *Routine HEENT Exam Head: Present normocephalic and cushingoid faces Eye: Present EOMI and PERRL ENT: Present mucous membranes moist *Routine Neck Exam Neck: Present supple; Absent lymphadenopathy *Routine Respiratory Exam Respiratory: Present prolonged expiratory phase, rhonchi (Right lung field), crackles (Right lower lung field best heard lateral), distant breath sounds and diminished air movement; Absent wheezes *Routine Cardiovascular Exam Cardiovascular: Present RRR *Routine Abdominal Exam Abdominal: Present soft and normoactive bowel sounds; Absent tenderness *Routine Rectal Exam Rectal:: deferred *Routine Genitalia Exam Genitalia:: deferred *Routine Extremities Exam Extremities: Absent cyanosis, clubbing or edema *Routine Skin Exam Skin: Present intact and warm; Absent rash *Routine Neurological Exam Neurological: Present alert, altered mental status and moving all extremities Assessment and Plan *Assessment and plan (1) Sepsis: Status: Acute Category: Medical Code(s): A41.9 - Sepsis, unspecified organism (2) Pneumonia: Status: Acute Category: Medical Code(s): J18.9 - Pneumonia, unspecified organism (3) Chronic heart failure with preserved ejection fraction (HFpEF): Status: Acute Category: Medical Code(s): I50.32 - Chronic diastolic (congestive) heart failure (4) Cerebral palsy: Status: Acute Category: Medical Code(s): G80.9 - Cerebral palsy, unspecified (5) Debility: Status: Acute Category: Medical Code(s): R53.81 - Other malaise (6) Diabetes mellitus: Status: Acute Category: Medical Code(s): E11.9 - Type 2 diabetes mellitus without complications (7) Hypothyroid: Status: Acute Category: Medical Code(s): E03.9 - Hypothyroidism, unspecified (8) RAJAN (obstructive sleep apnea): Status: Acute Category: Medical Code(s): G47.33 - Obstructive sleep apnea (adult) (pediatric) (9) GERD (gastroesophageal reflux disease): Status: Acute Category: Medical Code(s): K21.9 - Gastro-esophageal reflux disease without esophagitis (10) Depression: Status: Acute Category: Medical Code(s): F32.A - Depression, unspecified (11) BPH (benign prostatic hyperplasia): Status: Acute Category: Medical Code(s): N40.0 - Benign prostatic hyperplasia without lower urinary tract symptoms (12) CAD (coronary artery disease): Status: Acute Qualifiers: Associated angina: with other forms of angina Coronary Disease-Associated Artery/Lesion type: red devil artery [place] vs. transplanted heart: red devil heart Qualified Code(s): I25.118 - Atherosclerotic heart disease of red devil coronary artery with other forms of angina pectoris Category: Medical Code(s): I25.10 - Atherosclerotic heart disease of red devil coronary artery without angina pectoris (13) HTN (hypertension): Status: Chronic Qualifiers: Hypertension type: primary hypertension Qualified Code(s): I10 - Essential (primary) hypertension Category: Medical Code(s): I10 - Essential (primary) hypertension (14) Complex sleep apnea syndrome: Problem Comment: Noncompliant with BiPAP therapy. 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 Status: Chronic Category: Medical (16) Hydrocephalus: Status: Chronic Category: Medical Code(s): G91.9 - Hydrocephalus, unspecified Plan Mr. Blakely is a 63-year-old male with multiple comorbidities who presented to the ER for altered mental status/hypoxia. Found to have sepsis from left lower lobe pneumonia along with hypernatremia. Discussed case with ER provider, request admission for further management including IV antibiotics of his pneumonia and sepsis. I decided to admit for further care. Initiated on D5 half-normal saline to address hypernatremia. Necessitating inpatient care. Problems addressed as follows: Sepsis Pneumonia, Left lower lobe, present on admisson Acute on chronic hypoxemic respiratory failure Metabolic encephalopathy - Meeting sepsis criteria with white count of 15.3, tachycardic above 90 consistently, fever one 1.5. Suspected UTI versus left lower lobe pneumonia. Rhonchi on exam. -Initiated on vancomycin IV 2 g and Zosyn 3.375 g every 6 hours. Continue vancomycin, pharmacy to assist with dosing. Continue Zosyn. - Repeat CBC, CMP, magnesium ordered for the morning. - Blood, urine, sputum cultures pending - GCS low on arrival at 11. Mentation is off of previous exams that I have had with him on previous admissions. Likely etiologies are his sepsis and his hypernatremia. Monitor for improvement with treatment of his acute condition - Resume home BiPAP after communicating with nursing facility - Chest x-ray that does show left lower lung opacification per my review. - Chest CT pending - Urine interestingly shows 20-50 white cells, 2+ bacteria, negative nitrite but trace leuk esterase. Has had previous urinary infections. Previous cultures with Citrobacter all sensitive to Zosyn. - DuoNebs every 6 hours scheduled Hypernatremia: Sodium 150, chloride 110. Monitor for correction 6 to 8 mEq/day. Will administer 1 L D5 half-normal saline overnight. Repeat sodium level ordered for 6 AM. Tolerating p.o. liquids. Monitoring level every 12 hours right now TAURUS: BUN 35, creatinine 1.5 on presentation. Above baseline of 1.1-1.2. Potassium 3.9. Repeat CBC, CMP, magnesium ordered for the morning. Schizoaffective disorder: Holding gabapentin, Vraylar, Cymbalta pending med reconciliation. Continue Keppra 1000 mg twice daily for seizure disorder Hypertension: Holding losartan, spironolactone, isosorbide, Lipitor in the setting of sepsis Hypothyroid: TSH 1.4 on 12/01. No change to regimen. Continue levothyroxine 50 mcg daily Diabetes: A1c 5.6 on 12/01. Well-controlled. Will hold metformin and insulin glargine at this time. Continue sliding scale insulin with fingersticks ACHS. On high intensity while on D5 half-normal IV drip as above Obesity and debility complicate all aspects of his care Holding trazodone nightly for sleep due to sedation Continue tamsulosin 0.8 mg HS for BPH Full code PLOV Mechanical soft/Diabetic diet
--- NOTE | 2024-12-18 17:30 | PC.NURSE ---
supervisor beater room contacted for bed
--- NOTE | 2024-12-18 17:42 | PC.NURSE ---
1735- report called and given to KAMAR Hillman on [facility].
--- NOTE | 2024-12-18 17:52 | PC.NURSE ---
arrived to floor by stretcher from ED
--- NOTE | 2024-12-18 19:23 | PC.NURSE ---
spoke to pritesh with pharmacy about the vanc dosing. he told me to mix 10 ml NS in each vanc vial then put back into bag and administer.
[2024-12-18] MEDS: Dex 5% in 0.45% NaCl 1,000 ML 100 ML IV (19:25)
[2024-12-18] MEDS: VANCOMYCIN HCL 2,000 MG in 0.9 % SODIUM CHLORIDE 250 ML 125 MG IV (20:10)
[2024-12-18 20:21] LABS: Reflex Lactic Add Lactic Reflex
[2024-12-18 20:24] LABS: POC Glucose,Bedside 299 gm/dL (70-110)
[2024-12-18] MEDS: TAMSULOSIN 0.4MG CAPSULE 0.8 MG PO (21:15)
[2024-12-18] MEDS: humaLOG 100 UNITS/ML 10ML VIAL (SSI) SUBCUT (21:15)
[2024-12-18 21:17] LABS: Lactic Acid Follow Up (RFLX 1) 2.5 mmol/L (0.7-2.1)
--- NOTE | 2024-12-18 22:31 | PC.NURSE ---
The patient refused bipap after the nurse and I explained the doctor ordered it and why.
[2024-12-18 22:51] LABS: Reflex Lactic (2 hrs) Add Lactic Reflex
[2024-12-18] MEDS: IPRATROPIUM/ALBUTEROL 3 ML NEB IH (23:18)
[2024-12-19] VITALS (13 sets, daily range): BP systolic 121–152; BP diastolic 66–93; PULSE 60–104; RESP 12–19; TEMP 37.1–37.8; O2SAT 93–100; BMI 26.2
[2024-12-19] MEDS: PIPERCILLIN/TAZO 3.375 GM in 0.9 % SODIUM CHLORIDE 50 ML IV ×5 (00:22→23:30)
[2024-12-19 00:39] LABS: Lactic Acid Follow up (RFLX 2) 2.8 mmol/L (0.7-2.1)
[2024-12-19] MEDS: IPRATROPIUM/ALBUTEROL 3 ML NEB IH ×4 (06:29→23:51)
[2024-12-19] MEDS: humaLOG 100 UNITS/ML 10ML VIAL (SSI) SUBCUT ×4 (06:30→21:05)
[2024-12-19 07:03] LABS: POC Glucose,Bedside 247 gm/dL (70-110)
--- NOTE | 2024-12-19 07:50 | EXP.PHA.CONS ---
Pharmacy Consult Date: 12/19/24 Time: 07:52 Referring provider: DR SALOMON Reason for Consult:: VANCOMYCIN DOSING CONSULT Allergies Allergy/AdvReac Type Severity Reaction Status Date / Time morphine (MORPHINE) Allergy Mild HURTS Verified 11/30/24 10:48 STOMACH nitroglycerin AdvReac Mild Nausea Verified 11/30/24 10:48 Home Medications ?Medication ?Instructions ?Recorded ?Confirmed ?Type atorvastatin 40 mg tablet (Lipitor) 40 mg PO HS 03/24/17 11/30/24 History isosorbide mononitrate 30 mg 30 mg PO DAILY 04/11/17 11/30/24 History tablet,extended release 24 hr magnesium oxide 400 mg PO HS 09/30/17 11/30/24 History acetaminophen 500 mg tablet 500 mg PO Q4HP PRN Fever Or Pain 11/10/17 11/30/24 History omeprazole 20 mg capsule,delayed 20 mg PO Q48H Acid Reflux 11/10/17 11/30/24 History release losartan 25 mg tablet (Cozaar) 25 mg PO DAILY 09/29/18 11/30/24 History aspirin 81 mg chewable tablet 81 mg PO DAILY 01/25/19 11/30/24 History loperamide 2 mg capsule 2 mg PO Q4HP PRN Diarrhea 01/25/19 11/30/24 History trazodone 100 mg tablet 100 mg PO HS 02/24/20 11/30/24 History metformin 500 mg tablet 500 mg PO BIDWMEAL 10/30/20 11/30/24 History docusate calcium 240 mg capsule 240 mg PO DAILYP PRN Constipation 02/09/21 11/30/24 History lactulose 10 gram/15 mL oral 30 ml PO DAILYP PRN Constipation 02/09/21 11/30/24 History solution duloxetine 60 mg capsule,delayed 60 mg PO DAILY 10/17/21 11/30/24 History release linagliptin 5 mg tablet (Tradjenta) 5 mg PO DAILY 10/17/21 11/30/24 History tiotropium bromide 1.25 2 puff inhalation DAILY 10/17/21 11/30/24 History mcg/actuation mist for inhalation (Spiriva Respimat) aluminum hydrox-magnesium carb 95 30 ml PO Q4HP PRN Acid Reflux 11/21/22 11/30/24 History mg-358 mg/15 mL oral suspension (Acid Gone Antacid) bisacodyl 5 mg tablet 10 mg PO DAILYP PRN Constipation 11/21/22 11/30/24 History polyethylene glycol 3350 17 gram 17 g PO DAILY 11/21/22 11/30/24 History oral powder packet bisacodyl 10 mg rectal suppository 10 mg DE DAILYP PRN Constipation 01/28/23 11/30/24 History albuterol sulfate 90 mcg/actuation 2 inh inhalation QIDP PRN 03/10/23 11/30/24 History aerosol inhaler Shortness Of Breath Or Wheezing guaifenesin 100 mg/5 mL oral 200 mg PO Q4HP PRN Cough 03/10/23 11/30/24 History liquid (Diabetic Tussin EX) multivitamin with folic acid 400 1 tab PO DAILY 03/10/23 11/30/24 History mcg tablet (Tab-A-Laron) levetiracetam 1,000 mg tablet 1,000 mg PO BID 05/01/23 11/30/24 History (Keppra) insulin lispro protamine-lispro 15 unit SQ AM 02/24/24 11/30/24 History 100 unit/mL (75-25) subcutaneous pen (Humalog Mix 75-25 KwikPen) tamsulosin 0.4 mg capsule (Flomax) 0.4 mg PO DAILY #30 caps 04/05/24 11/30/24 Rx spironolactone 50 mg tablet 25 mg (1/2 x 50 mg) PO DAILY 30 04/12/24 11/30/24 Rx days #0 tabs folic acid 800 mcg tablet 0.8 mg PO DAILY 06/02/24 11/30/24 History cyanocobalamin (vitamin B-12) 250 750 mcg PO DAILY 07/13/24 11/30/24 History mcg tablet furosemide 40 mg tablet (Lasix) 40 mg PO .MTWTHF 07/13/24 11/30/24 History levothyroxine 50 mcg tablet 50 mcg PO QAM 07/13/24 11/30/24 History sennosides 8.6 mg tablet (Senna 17.2 mg PO BID 07/13/24 11/30/24 History Laxative) cariprazine 1.5 mg capsule 1.5 mg PO DAILY 11/30/24 11/30/24 History (Vraylar) gabapentin 600 mg tablet 600 mg PO TID #90 tabs 12/07/24 Rx tramadol 50 mg tablet 100 mg (2 x 50 mg) PO Q6H #240 tabs 12/07/24 Rx New Prescriptions to Start Prescriptions: Height: 1.78 m Weight: 83.007 kg Laboratory Results:: Laboratory Results - last 24 hr 12/18/24 00:03: Lactate 2.8 H 12/18/24 15:35: WBC 15.3 H, RBC 3.68 L, Hgb 12.2 L, Hct 41.0 L, MCV 111.4 H, MCH 33.2 H, MCHC 29.8 L, RDW 14.1, Plt Count 247, MPV 10.7 H, Neut % (Auto) 78.0, Lymph % (Auto) 13.6, [place] % (Auto) 7.0, Eos % (Auto) 0.3, Baso % (Auto) 0.4, Neut # (Auto) 12.0 H, Lymph # (Auto) 2.1, [place] # (Auto) 1.1 H, Eos # (Auto) 0.1, Baso # (Auto) 0.1, PT 10.9, INR 0.98, Sodium 150 H, Potassium 3.9, Chloride 110 H, Carbon Dioxide 27, Anion Gap 16.9 H, BUN 35 H, Creatinine 1.50 H, Estimated Creat Clear 69, Estimated GFR 47 L, Est GFR ( Amer) 57 L, Glucose 241 H, Calcium 9.1, Magnesium 2.2, Total Bilirubin 0.6, AST 30, ALT 23, Alkaline Phosphatase 79, Troponin I < 0.01, NT-Pro-B Natriuret Pep 173 H, Total Protein 8.5 H, Albumin 3.8, Globulin 4.7 H, Albumin/Globulin Ratio 0.8 L 12/18/24 15:43: Lactate 2.8 H 12/18/24 15:54: Urine Color Yellow, Urine Appearance Clear, Urine pH 6.0, Ur Specific [place] 1.025, Urine Protein 1+ A, Urine Glucose (UA) Negative, Urine Ketones Negative, Urine Blood 1+ A, Urine Nitrate Negative, Urine Bilirubin Negative, Urine Urobilinogen 0.2, Ur Leukocyte Esterase Trace, Urine RBC None, Urine WBC 20-50, Ur Squamous Epith Cells 10-20, Urine Bacteria 2+ 12/18/24 16:00: Chlamy pneumoniae PCR Not detected, Adenovirus (PCR) Not detected, B. pertussis DNA (PCR) Not detected, Coronavirus OC43 (PCR) Not detected, Coronavirus HKU1 (PCR) Not detected, Coronavirus 229E (PCR) Not detected, SARS-CoV-2 (PCR) Not detected, Coronavirus NL63 (PCR) Not detected, Human Metapneumovir PCR Not detected, Influenza A (H1) PCR Not detected, Influ A (H1N1/09) PCR Not detected, Influenza A (H3) PCR Not detected, Influenza Type A (PCR) Not detected, Influenza Type B (PCR) Not detected, M. pneumoniae (PCR) Not detected, Parainfluenza 1 (PCR) Not detected, Parainfluenza 2 (PCR) Not detected, Parainfluenza 3 (PCR) Not detected, Parainfluenza 4 (PCR) Not detected, RSV (PCR) Not detected, Entero/Rhino (PCR) Not detected 12/18/24 16:06: VBG pH 7.42 H, VBG pCO2 41.5, VBG pO2 220.3 H, VBG HCO3 26.1, VBG Total CO2 27.4 H, VBG O2 Saturation 99.5 H, VBG Base Excess 1.6, VBG Lactic Acid 3.7 H 12/18/24 20:13: POC Glucose 299 H 12/18/24 20:48: Lactate 2.5 H 12/19/24 06:07: POC Glucose 247 H Medical History: Medical History (Updated 12/18/24 @ 17:24 by LATRICIA Carrillo) Acute respiratory failure with hypoxia and hypercarbia Acute UTI Lethargy Chronic heart failure with preserved ejection fraction (HFpEF) Urinary tract infection Cerebral palsy Poor dentition Renal cyst Schizoaffective disorder HLD (hyperlipidemia) Debility Diabetes mellitus Coronary arteriosclerosis in [place] artery Diverticulosis of large intestine without perforation or abscess without bleeding Generalized muscle weakness Other specified arthritis, multiple sites Primary osteoarthritis of right knee RAJAN (obstructive sleep apnea) BPH (benign prostatic hyperplasia) COPD (chronic obstructive pulmonary disease) Acute respiratory failure with hypoxia and hypercarbia Depression Anxiety Hypothyroid GERD (gastroesophageal reflux disease) Seizure Right lower lobe pneumonia Bronchomalacia Pulmonary emphysema Renal insufficiency Chronic subdural hematoma Intolerance to BiPAP/CPAP Edema Celiac artery stenosis Heart failure, NYHA class 2 Extreme obesity 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 Obesity, Class II, BMI 35-39.9, isolated (see actual BMI) Impingement syndrome of both shoulders Arthritis of sternoclavicular joint Osteopenia Anemia HHD (hypertensive heart disease) Assessment and Plan Assessment and plan all Dx Assessment and Plan for all problems:: Pharmacokinetic dosing service Objective: Age: 63 yo Serum creatinine: 1.5 mg/dL Height: 70.1 Inches Weight (kg): 83.007 Diagnosis: SEPSIS Assessment: IBW (kg): 73.23 Dosing wt(kg): 83.007 Estimated Creatinine clearance (ml/min): 50.9 CRCL method: Cockcroft and Gault using ibw(default). Drug selected: Vancomycin Loading dose (mg): 2000 MG Vd (liters): 58.1 (factor used: 0.7 L/kg) Ozzie (hr-1): 0.047 Half life (hrs): 14.75 CLvanco=?? 2.731 L/hr Recommended dose: 1500 mg Interval: 24 hrs Infusion time (hrs): 2.0 Predicted peak (mcg/mL): 36.4 Predicted trough (mcg/mL): 12.94 Total body weight is being used for vancomycin dosing. Recommendations: Give Vancomycin 1500 mg q 24 hrs with an expected Cpeak of 36.4 mcg/ml and an expected Ctrough of 12.94 mcg/ml TO START 12/19/24 AT 19:00, PATIENT RECEIVED ONE TIME LOADING DOSE OF VANCOMYCIN 2000 MG IV IN THE ED 12/18/24 AT 20:10. AUC 0-24 /ORTEGA Data: ORTEGA 0.5 mcg/mL:?? AUC/ORTEGA:? 1098.5 ORTEGA 1.0 mcg/mL:?? AUC/ORTEGA:? 549.2 --------- ORTEGA 1.5 mcg/mL:?? AUC/ORTEGA:? 366.2 ORTEGA 2.0 mcg/mL:?? AUC/ORTEGA:? 274.6 Thank you for the consult
[2024-12-19] MEDS: LEVOTHYROXINE 50MCG (0.05MG) TAB 50 MCG PO (08:33)
[2024-12-19] MEDS: DOCUSATE SODIUM 100 MG CAPSULE PO (08:33)
--- NOTE | 2024-12-19 09:18 | P.CONPHA_ITS ---
Pharmacy Intervention Comments: MEDICATION RECONCILIATION COMPLETE USING MAR FROM [facility] [place].
--- NOTE | 2024-12-19 09:18 | HMH.PHAINT1 ---
Pharmacy Intervention Comments: MEDICATION RECONCILIATION COMPLETE USING MAR FROM [facility].
[2024-12-19] MEDS: ACETAMINOPHEN 325MG TAB 650 MG PO ×2 (09:24→17:01)
[2024-12-19 11:10] LABS: POC Glucose,Bedside 236 gm/dL (70-110)
--- NOTE | 2024-12-19 14:30 | EXP.ACUTE.PN ---
Subjective *Date: 12/19/24 *Time: 16:20 Interval history: Somewhat more interactive today. Speaking with staff. Did not answer my questions on exam however made good eye contact and was alert and interactive. Stable on 4 L oxygen. No jenaro fever overnight, did have temperature of 99.5 however. Wore BiPAP. Medical Exam Vital signs and Labs for Last 24 Hours: Vital Signs Temp Pulse Pulse Resp BP BP Pulse Ox 12/19/24 12:00 99.0 F 92 H 18 137/71 93 L 12/19/24 12:00 100 H 12/19/24 11:50 82 12/19/24 11:50 85 12/19/24 11:50 93 L 12/19/24 11:00 12/19/24 09:00 12/19/24 08:00 100 H 12/19/24 08:00 96 12/19/24 08:00 99.8 F H 94 H 16 147/81 H 98 12/19/24 06:43 12/19/24 06:29 84 12/19/24 06:29 89 12/19/24 05:00 12/19/24 04:00 80 12/19/24 04:00 100.1 F H 100 H 18 140/82 93 L 12/19/24 03:45 12/19/24 03:00 12/19/24 01:00 EST 12/19/24 00:00 99.7 F H 104 H 16 152/93 H 95 12/18/24 23:53 91 H 17 12/18/24 23:52 12/18/24 23:50 93 H 12/18/24 23:00 12/18/24 22:34 12/18/24 21:00 12/18/24 20:00 12/18/24 20:00 97.9 F 95 H 16 141/81 H 97 12/18/24 19:10 12/18/24 18:02 101.5 F H 98 H 16 105/59 L 12/18/24 18:00 100.9 F H 99 H 16 124/68 94 L 12/18/24 18:00 93 L 12/18/24 17:12 98 H 105/59 L 93 L 12/18/24 16:30 109 H 99/59 L 94 L 12/18/24 16:00 54 L 105/65 L 94 L 12/18/24 15:46 55 L 124/56 L 93 L 12/18/24 15:46 97 12/18/24 15:38 101.5 F H 100 H 18 106/80 L 100 O2 Del Method O2 Flow Rate FiO2 12/19/24 12:00 Nasal Cannula 4 12/19/24 12:00 12/19/24 11:50 12/19/24 11:50 12/19/24 11:50 Nasal Cannula 2 12/19/24 11:00 Nasal Cannula 2 12/19/24 09:00 Nasal Cannula 2 12/19/24 08:00 12/19/24 08:00 Nasal Cannula 2 12/19/24 08:00 Room Air 12/19/24 06:43 Nasal Cannula 4 12/19/24 06:29 12/19/24 06:29 12/19/24 05:00 BiPAP 12/19/24 04:00 12/19/24 04:00 BiPAP 12/19/24 03:45 36 12/19/24 03:00 BiPAP 12/19/24 01:00 EST BiPAP 12/19/24 00:00 BiPAP 12/18/24 23:53 12/18/24 23:52 36 12/18/24 23:50 12/18/24 23:00 Nasal Cannula 4 12/18/24 22:34 Nasal Cannula 4 12/18/24 21:00 Nasal Cannula 4 12/18/24 20:00 Nasal Cannula 4 12/18/24 20:00 Room Air 12/18/24 19:10 Nasal Cannula 4 12/18/24 18:02 Nasal Cannula 4 12/18/24 18:00 Nasal Cannula 4 12/18/24 18:00 Nasal Cannula 4 12/18/24 17:12 Nasal Cannula 4 12/18/24 16:30 Nasal Cannula 4 12/18/24 16:00 Nasal Cannula 4 12/18/24 15:46 Nasal Cannula 4 12/18/24 15:46 Nasal Cannula 4 12/18/24 15:38 Nasal Cannula 4 Intake and Output 12/18/24 12/19/24 12/19/24 23:59 06:59 15:59 Intake Total 300 / 400 1150 / 1910 760 / 1910 Output Total 300 / 300 Balance 300 / 350 850 / 1610 760 / 1610 Intake: Intake, Oral Amount 100 / 760 660 / 760 Intake, Total IV Amount 300 / 300 1050 / 1150 100 / 1150 Dex 5% in 0.45% NaCl 1,000 ml @ 1000 / 1000 100 mls/hr IV .Q10H [facility] Rx#: [id number] Pipercillin/Tazo 3.375 gm In 0. 50 / 50 9 % Sodium Chloride 50 ml @ 100 mls/hr IV ONCE ONE Rx#: [id number] Pipercillin/Tazo 3.375 gm In 0. 50 / 150 100 / 150 9 % Sodium Chloride 50 ml @ 100 mls/hr IV Q6H [facility] Rx#:[id number] Vancomycin HCl 2,000 mg In 0.9 250 / 250 % Sodium Chloride 250 ml @ 125 mls/hr IV ONCE ONE Rx#:[id number] Output: Output, Urine Amount 300 / 300 Other: Number of Unmeasured Voids 0 Weight 80.104 kg 83.007 kg Patient Weight 12/19/24 22:59 Weight 83.007 kg Laboratory Results - last 24 hr 12/18/24 00:03: Lactate 2.8 H 12/18/24 15:35: WBC 15.3 H, RBC 3.68 L, Hgb 12.2 L, Hct 41.0 L, MCV 111.4 H, MCH 33.2 H, MCHC 29.8 L, RDW 14.1, Plt Count 247, MPV 10.7 H, Neut % (Auto) 78.0, Lymph % (Auto) 13.6, [place] % (Auto) 7.0, Eos % (Auto) 0.3, Baso % (Auto) 0.4, Neut # (Auto) 12.0 H, Lymph # (Auto) 2.1, [place] # (Auto) 1.1 H, Eos # (Auto) 0.1, Baso # (Auto) 0.1, PT 10.9, INR 0.98, Sodium 150 H, Potassium 3.9, Chloride 110 H, Carbon Dioxide 27, Anion Gap 16.9 H, BUN 35 H, Creatinine 1.50 H, Estimated Creat Clear 69, Estimated GFR 47 L, Est GFR ( Amer) 57 L, Glucose 241 H, Calcium 9.1, Magnesium 2.2, Total Bilirubin 0.6, AST 30, ALT 23, Alkaline Phosphatase 79, Troponin I < 0.01, NT-Pro-B Natriuret Pep 173 H, Total Protein 8.5 H, Albumin 3.8, Globulin 4.7 H, Albumin/Globulin Ratio 0.8 L 12/18/24 15:43: Lactate 2.8 H 12/18/24 15:54: Urine Color Yellow, Urine Appearance Clear, Urine pH 6.0, Ur Specific [place] 1.025, Urine Protein 1+ A, Urine Glucose (UA) Negative, Urine Ketones Negative, Urine Blood 1+ A, Urine Nitrate Negative, Urine Bilirubin Negative, Urine Urobilinogen 0.2, Ur Leukocyte Esterase Trace, Urine RBC None, Urine WBC 20-50, Ur Squamous Epith Cells 10-20, Urine Bacteria 2+ 12/18/24 16:00: Chlamy pneumoniae PCR Not detected, Adenovirus (PCR) Not detected, B. pertussis DNA (PCR) Not detected, Coronavirus OC43 (PCR) Not detected, Coronavirus HKU1 (PCR) Not detected, Coronavirus 229E (PCR) Not detected, SARS-CoV-2 (PCR) Not detected, Coronavirus NL63 (PCR) Not detected, Human Metapneumovir PCR Not detected, Influenza A (H1) PCR Not detected, Influ A (H1N1/09) PCR Not detected, Influenza A (H3) PCR Not detected, Influenza Type A (PCR) Not detected, Influenza Type B (PCR) Not detected, M. pneumoniae (PCR) Not detected, Parainfluenza 1 (PCR) Not detected, Parainfluenza 2 (PCR) Not detected, Parainfluenza 3 (PCR) Not detected, Parainfluenza 4 (PCR) Not detected, RSV (PCR) Not detected, Entero/Rhino (PCR) Not detected 12/18/24 16:06: VBG pH 7.42 H, VBG pCO2 41.5, VBG pO2 220.3 H, VBG HCO3 26.1, VBG Total CO2 27.4 H, VBG O2 Saturation 99.5 H, VBG Base Excess 1.6, VBG Lactic Acid 3.7 H 12/18/24 20:13: POC Glucose 299 H 12/18/24 20:48: Lactate 2.5 H 12/19/24 06:07: POC Glucose 247 H 12/19/24 10:45: POC Glucose 236 H I & O for Labs for Last 24 Hours: Intake & Output 12/16/24 12/17/24 12/18/24 12/19/24 23:59 23:59 23:59 22:59 Intake Total 300 / 400 1909 Output Total 300 / 300 Balance 300 / 350 1610 / 1610 Weight 80.104 kg 83.007 kg Constitutional: Present no acute distress, obese, chronically ill appearing and cooperative Head: Present atraumatic and normocephalic ENT: Present normal exam Respiratory: Present rhonchi and normal respiratory effort; Absent wheezes or crackles Cardiac: Present Reg Rate and Rhythm GI: Present soft and normal bowel sounds; Absent distention or tenderness Comment:: Thin extremities, sarcopenia of legs. Skin: Present intact; Absent erythema Neuro: Present alert and awake Comment:: Interactive on exam. Answers questions with staff. Did not answer them with me however. Assessment and Plan *Assessment and plan (1) Sepsis: Status: Acute Category: Medical Code(s): A41.9 - Sepsis, unspecified organism (2) Pneumonia: Status: Acute Category: Medical Code(s): J18.9 - Pneumonia, unspecified organism (3) Chronic heart failure with preserved ejection fraction (HFpEF): Status: Acute Category: Medical Code(s): I50.32 - Chronic diastolic (congestive) heart failure (4) Cerebral palsy: Status: Acute Category: Medical Code(s): G80.9 - Cerebral palsy, unspecified (5) Debility: Status: Acute Category: Medical Code(s): R53.81 - Other malaise (6) Diabetes mellitus: Status: Acute Category: Medical Code(s): E11.9 - Type 2 diabetes mellitus without complications (7) Hypothyroid: Status: Acute Category: Medical Code(s): E03.9 - Hypothyroidism, unspecified (8) RAJAN (obstructive sleep apnea): Status: Acute Category: Medical Code(s): G47.33 - Obstructive sleep apnea (adult) (pediatric) (9) GERD (gastroesophageal reflux disease): Status: Acute Category: Medical Code(s): K21.9 - Gastro-esophageal reflux disease without esophagitis (10) Depression: Status: Acute Category: Medical Code(s): F32.A - Depression, unspecified (11) BPH (benign prostatic hyperplasia): Status: Acute Category: Medical Code(s): N40.0 - Benign prostatic hyperplasia without lower urinary tract symptoms (12) CAD (coronary artery disease): Status: Acute Qualifiers: Associated angina: with other forms of angina Coronary Disease-Associated Artery/Lesion type: [place] artery [place] vs. transplanted heart: [place] heart Qualified Code(s): I25.118 - Atherosclerotic heart disease of [place] coronary artery with other forms of angina pectoris Category: Medical Code(s): I25.10 - Atherosclerotic heart disease of [place] coronary artery without angina pectoris (13) HTN (hypertension): Status: Chronic Qualifiers: Hypertension type: primary hypertension Qualified Code(s): I10 - Essential (primary) hypertension Category: Medical Code(s): I10 - Essential (primary) hypertension (14) Complex sleep apnea syndrome: Problem Comment: Noncompliant with BiPAP therapy. 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 Status: Chronic Category: Medical (16) Hydrocephalus: Status: Chronic Category: Medical Code(s): G91.9 - Hydrocephalus, unspecified Plan Mr. Blakely is a 63-year-old male with multiple comorbidities who presented to the ER for altered mental status/hypoxia. Found to have sepsis from left lower lobe pneumonia along with hypernatremia. Discussed case with ER provider, request admission for further management including IV antibiotics of his pneumonia and sepsis. I decided to admit for further care. Initiated on D5 half-normal saline to address hypernatremia. Necessitating inpatient care. Problems addressed as follows: Sepsis Pneumonia, Left lower lobe, present on admisson Acute on chronic hypoxemic respiratory failure Metabolic encephalopathy - Meeting sepsis criteria with white count of 15.3, tachycardic above 90 consistently, fever one 1.5. Suspected UTI versus left lower lobe pneumonia. Rhonchi on exam. -Initiated on vancomycin IV 2 g and Zosyn 3.375 g every 6 hours. Continue vancomycin, pharmacy to assist with dosing. Continue Zosyn. - Repeat CBC, CMP, magnesium ordered for the morning. -White blood cell count increased to 18, hemoglobin 11.9 (essentially stable). - Blood, urine, sputum cultures pending -GCS improving at 14. Mentation still off but improving. More verbal with staff. - Tolerated BiPAP, continue nightly per home settings - Chest CT did not show focal consolidation. Does still have rhonchi. Evaluating urine for possible UTI as source of his sepsis. - Urine interestingly shows 20-50 white cells, 2+ bacteria, negative nitrite but trace leuk esterase. Has had previous urinary infections. Previous cultures with Citrobacter all sensitive to Zosyn. - DuoNebs every 6 hours scheduled Hypernatremia: Sodium 150, chloride 110 on admission. Monitor for correction 6 to 8 mEq/day. Status post 1 L D5 half-normal. Sodium slightly improved at 149. Will administer another liter of D5W. Chlorides elevated 114. Monitoring level every 12 hours TAURUS: BUN 35, creatinine 1.5 on presentation. Above baseline of 1.1-1.2. Potassium 3.9. Kidney function stable with BUN 30, creatinine 1.4; Repeat CBC, CMP, magnesium ordered for the morning. Schizoaffective disorder: Holding gabapentin, Vraylar, Cymbalta pending med reconciliation. Continue Keppra 1000 mg twice daily for seizure disorder Hypertension: Holding losartan, spironolactone, isosorbide, Lipitor in the setting of sepsis Hypothyroid: TSH 1.4 on 12/01. No change to regimen. Continue levothyroxine 50 mcg daily Diabetes: A1c 5.6 on 12/01. Well-controlled. Will hold metformin and insulin glargine at this time. Continue sliding scale insulin with fingersticks ACHS. Continue high intensity sliding scale insulin, morning glucose 247 Obesity and debility complicate all aspects of his care Holding trazodone nightly for sleep due to sedation Continue tamsulosin 0.8 mg HS for BPH Full code PLOV Mechanical soft/Diabetic diet
--- OUTSIDE RECORDS SUMMARY | 2024-12-19 15:45 | XMS_ITS | Clinical Summary ---
Author Organization [facility] [place] OFFICE Address [facility] [address] [address] [place] [address] Care Team Providers Care Adjunct Professor Of Law Name Role Phone Unavailable Primary Care Provider [...] ID:Not on file Type:Not on file Address: [facility] [address] [place] [id number]
--- OUTSIDE RECORDS SUMMARY | 2024-12-19 15:45 | XMS_ITS ---
Author Organization Unknown ENCOUNTERS Encounter Performer Location Date Diagnosis Diagnosis Status Inpatient [facility] [address] [facility] [address] [place] [address] [id number] Emergency [place] [id number] [facility] [address] [place] [address] [id number] A Outpatient [place] [id number] [facility] [address] [place] [address] [id number] Pre Admit Luca [place] [id number] [facility] [address] [place] [address] [id number] Inpatient [facility] [address] [place] [address] [address] [place] [address] [id number] [facility] Emergency [facility] [address] [facility] [address] [place] [address] [id number] A Pre Admit [facility] [address] [facility] [address] [place] [address] [id number] Pre Admit [facility] [address] [facility] [address] [place] [address] [id number] Emergency [facility] [address] [facility] [address] [place] [address] [id number] [facility]ART[facility] Inpatient Vivienalejandra Louis [facility] [address] [facility] [address] [place] [address] [id number] [facility] Emergency [facility] [address] [facility] [address] [place] [address] [id number] A Pre Admit [facility] [address] [facility] [address] [place] [address] [id number] Inpatient [facility] [address] [facility] [address] [place] [address] [id number] [facility] Emergency [facility] [address] [facility] [address] [place] [address] [id number] A Pre Admit [facility] [address] [place] [address] [id number] Inpatient Luis Go [facility] [address] [place] [address] [id number] XIC[facility] Emergency Rabia Putnam [facility] [address] [place] [address] [id number] A Pre Admit [facility] [address] [place] [address] [id number] Emergency Luca Washington [facility] [address] [place] [address] [id number] [place] Inpatient Roney Angy [facility] [address] [place] [address] [id number] [facility] Emergency Wes Meza [facility] [address] [place] [address] [id number] AIP Emergency [facility] [address] [place] [address] [id number] [place] Emergency Kirill Newman [facility] [address] [place] [address] [id number] [facility] Outpatient Roney Travis [facility] [address] [place] [address] [id number] Inpatient Roney Angy [facility] [address] [place] [address] [id number] [facility] Emergency [facility] [address] [place] [address] [id number] Inpatient Roney Travis [facility] [address] [place] [address] [id number] XS[facility] Outpatient [facility] [address] [place] [address] [id number] Emergency Alexandra Brandon [facility] [address] [place] [address] [id number] AIP Emergency [facility] [address] [place] [address] [id number] XSNF *Note: Encounters from your own facility or health system may be excluded. Allergies, Adverse Reactions, Alerts Allergen Type Severity Identification Date morphine drug allergy 2 [id number] nitroglycerin drug allergy 2 [id number] Medications Name Date Quantity Days Supplied GPI Number
--- OUTSIDE RECORDS SUMMARY | 2024-12-19 15:45 | XMS_ITS | Clinical Summary ---
Author Organization Healthcare Address [address] [place] [address] Care Team Providers Care Parachute Officer Name Role Phone Roney Travis MD Primary Care Provider + [phone] Allergies Active Allergy Reactions Criticality Noted Date [...] of 2 - PCV) 03/12/2018 03/12/2017, 11/17/2010 [id number] Vaccine ( season) 2024 03/28/2020, 03/07/2020 UKY-Influenza [...] this topic Insurance MEDICARE [place] Care Teams Parachute Officer Relationship Specialty Start Date End Date Roney Travis MD [address] [place] [address] PCP - General 06/30/20
--- OUTSIDE RECORDS SUMMARY | 2024-12-19 15:45 | XMS_ITS | Clinical Summary ---
Author Organization [facility] Address [address] [place] [address] Care Team Providers Care Sales Clerk Name Role Phone Unavailable Primary Care Provider [...]
[2024-12-19 15:58] LABS: Hematocrit 39.2 % (42.0-52.0); Hemoglobin 11.9 g/dL (14.1-18.0); Immature Granulocytes % 0.5 %; Mean Corpuscular HGB Conc 30.4 g/dL (31.8-35.4); Mean Corpuscular Hemoglobin 33.9 pg (27.0-31.2); Mean Corpuscular Volume 111.7 fl (80-94); Nucleated Red Blood Cells % 0 %; Platelet Count 220 K/mm3 (142-424); Red Blood Count 3.51 M/mm3 (4.60-6.20); Red Cell Distribution Width-SD 57.6 fL; White Blood Count 18.2 K/mm3 (4.8-10.8)
[2024-12-19 16:13] LABS: Anion Gap 14.8 mEq/L (5-15); Blood Urea Nitrogen 30 mg/dl (9-20); Calcium 8.5 mg/dl (8.4-10.2); Carbon Dioxide 24 mmol/L (22.0-30.0); Chloride 114 mmol/L (98-107); Creatinine Clearance Estimated 62 mL/min (50-200); Creatinine,Serum 1.40 mg/dl (0.66-1.25); Estimated Glomerular Filt Rate 51 ml/min (>60); GFR (African American) 62 ML/MIN (>60); Glucose 182 mg/dl (74-100); Potassium 3.8 mmoL/L (3.5-5.1); Sodium 149 mmol/L (136-145)
[2024-12-19] MEDS: DEXTROSE 5 % IN WATER 1,000 ML 75 ML IV (16:58)
[2024-12-19 17:15] LABS: POC Glucose,Bedside 158 gm/dL (70-110)
--- NOTE | 2024-12-19 18:16 | PC.NURSE ---
pt has had a fever on and off today. has received prn tylenol twice. turned and repositioned per nursing staff. pure wick in place. he has been more talkative through out the shift. denies any pain to me.
[2024-12-19] MEDS: VANCOMYCIN/WATER FOR INJ (PEG) 1.5 GM/300 ML PIGGYBACK IV (19:42)
[2024-12-19 20:08] LABS: POC Glucose,Bedside 240 gm/dL (70-110)
[2024-12-19] MEDS: GABAPENTIN 600MG TABLET 600 MG PO (21:08)
[2024-12-19] MEDS: TAMSULOSIN 0.4MG CAPSULE 0.8 MG PO (21:08)
[2024-12-20] VITALS (12 sets, daily range): BP systolic 122–137; BP diastolic 63–90; PULSE 60–90; RESP 16–19; TEMP 36.4–36.9; O2SAT 92–100; BMI 26.8
--- NOTE | 2024-12-20 03:56 | PC.NURSE ---
Pt. is alert to name and place. Pt. aanswers questions off and on. somewhat interactive off and on. Pt. able to ask for water, voice clear. Pt. getting IV antibiotics and IVF's Pt. total care, turned and repositioned every 2 hours. Pt.on BiPAP overnight. Tolerating well. Pt. on oxygen 4 liters per NC during the day. Pt. denies pain. Call toth in reach but patient not able to use it. Pt. checked on frequently. Pt. sleeping comfortable on BiPAP. Bed in low and locked position . safety measures in place. Bed alarm on.
[2024-12-20] MEDS: PIPERCILLIN/TAZO 3.375 GM in 0.9 % SODIUM CHLORIDE 50 ML IV ×4 (05:52→23:47)
[2024-12-20] MEDS: humaLOG 100 UNITS/ML 10ML VIAL (SSI) SUBCUT ×2 (06:04→17:07)
[2024-12-20 06:06] LABS: POC Glucose,Bedside 206 gm/dL (70-110)
[2024-12-20] MEDS: IPRATROPIUM/ALBUTEROL 3 ML NEB IH ×4 (06:36→23:12)
[2024-12-20 06:41] LABS: Hematocrit 38.8 % (42.0-52.0); Hemoglobin 11.8 g/dL (14.1-18.0); Immature Granulocytes % 0.4 %; Mean Corpuscular HGB Conc 30.4 g/dL (31.8-35.4); Mean Corpuscular Hemoglobin 33.7 pg (27.0-31.2); Mean Corpuscular Volume 110.9 fl (80-94); Nucleated Red Blood Cells % 0 %; Platelet Count 191 K/mm3 (142-424); Red Blood Count 3.50 M/mm3 (4.60-6.20); Red Cell Distribution Width-SD 57.3 fL; White Blood Count 13.6 K/mm3 (4.8-10.8)
[2024-12-20 07:03] LABS: Alanine Aminotransferase 18 U/L (12-78); Albumin Level 4.0 g/dl (3.5-5.0); Albumin/Globulin Ratio 1.1 (1.1-1.8); Alkaline Phosphatase 72 U/L (38-126); Anion Gap 12.5 mEq/L (5-15); Aspartate Amino Transferase 22 U/L (17-59); Bilirubin,Total 0.6 mg/dl (0.2-1.3); Blood Urea Nitrogen 24 mg/dl (9-20); Calcium 8.1 mg/dl (8.4-10.2); Carbon Dioxide 24 mmol/L (22.0-30.0); Chloride 110 mmol/L (98-107); Creatinine Clearance Estimated 63 mL/min (50-200); Creatinine,Serum 1.40 mg/dl (0.66-1.25); Estimated Glomerular Filt Rate 51 ml/min (>60); GFR (African American) 62 ML/MIN (>60); Globulin 3.6 g/dL (1.3-3.2); Glucose 217 mg/dl (74-100); Magnesium 2.3 mg/dl (1.6-2.3); Potassium 3.5 mmoL/L (3.5-5.1); Sodium 143 mmol/L (136-145); Total Protein,Serum 7.6 g/dl (6.3-8.2)
--- NOTE | 2024-12-20 07:39 | SW/DCPLANNER ---
Addendum entered by Stacy Hui 12/22/24 14:26: Per Karen patient will return SNF level of care. Addendum entered by Stacy Hui 12/22/24 10:53: I have updated Karen Reaves that patient will return today [facility] level of care. Addendum entered by Stacy Hui 12/20/24 11:13: I have updated Karen that patient will return [facility] level of care tomorrow pending no setbacks. Original Note: Patient currently resides at [facility] of care. Updated patient information will be faxed to Karen Reaves. Discharge date is unknown at this time. CM will continue to follow up.
[2024-12-20] MEDS: LEVOTHYROXINE 50MCG (0.05MG) TAB 50 MCG PO (07:49)
[2024-12-20] MEDS: DOCUSATE SODIUM 100 MG CAPSULE PO (08:24)
[2024-12-20] MEDS: GABAPENTIN 600MG TABLET 600 MG PO ×3 (08:26→21:49)
--- NOTE | 2024-12-20 08:50 | HMH.PTEV ---
Physical Therapy Evaluation Rehab PT IP Evaluation Start: 12/18/24 18:50 Freq: ONCE Status: Active Protocol: Document 12/20/24 08:47 VIDA (Rec: 12/20/24 08:49 VIDA [id number]) Subjective/History History History Per H&P: Mr. Blakely is a 63-year-old male with history of CP, chronic respiratory failure on 2 L nasal cannula oxygen, is supposed to wear BiPAP at night for RAJAN but does not wear it regularly, schizoaffective disorder, diabetes, hypothyroid. He presented to the ER via EMS due to worsening confusion and fatigue over the past 24 hours. He was started on treatment for community-acquired pneumonia as an outpatient at his long-term with cefdinir and azithromycin 3 days ago. Developed temperature to 100.5 today. Increased oxygen requirement at his nursing facility to 4 L with baseline normally 2 L. Patient has minimal interaction at baseline. Can feed himself. Has had worsening confusion over the past 24 hours however. Was sent to the ER for evaluation. On arrival, found to have temperature of 101.5. GCS of 11 on arrival. White count elevated at 15. Tachycardic. Meeting sepsis criteria. Chest imaging in the ER positive for left lower lobe pneumonia. Also found to be hypernatremic with sodium of 150. Has struggled with hyponatremia in the past necessitating correction with IV fluids. Medicine consulted for admission and further management . Subjective Subjective Patient currently resides at [facility] level of care. Pt reports he uses a miranda lift for transfers. Pt requires total assist with all mobility at baseline. New diagnosis of No cancer in past 12 months? [facility] How much help from another person do you currently need... Turning from your Total back to your side while in a flat bed without using bedrails? Moving from lying on Total back to sitting on the side of a flat bed without using bedrails? Moving to and from a Total bed to a chair ( including a wheelchair)? Standing up from a Total chair using your arms? (e.g., wheelchair, bedside chair) Walking in hospital Total room? Climbing 3-5 steps Total with a railing? Mobility Score 6 Mobility Level [facility] Mobility 2 Bed activities/dependent transfer Mobility Calculator Rehab PT IP Eval Objective Appearance Patient Behavior Appropriate,Cooperative Speech Pattern Soft-Spoken Ambulation Patient Able to No Ambulate Balance Ability to Arise Unable Transfers Bed Transfer Ability Total/Dependent (100%) Rehab PT IP prob,goals,plan Problems Date of Evaluation: 12/20/24 Rehab Potential Rehab Potential Innapropriate for Skilled Therapy Discharge Plan PT Discharge Plan Pt presents at his baseline with mobility and is not appropriate for skilled acute care PT at this time. Eval Complexity Eval Charge Codes 12195 - Moderate Complexity PHYSICIAN CERTIFICATION: I certify the specified therapy services for Lalito Blakely are required, authorized, and reviewed every 30 days.
[2024-12-20 11:50] LABS: POC Glucose,Bedside 139 gm/dL (70-110)
--- NOTE | 2024-12-20 15:35 | PC.NURSE ---
erythema and blisters to scrotum
--- NOTE | 2024-12-20 16:24 | P.PN_ITS ---
Subjective *Date: 12/20/24 *Time: 16:46 Interval history: Appears at baseline mentation this morning. Wore BiPAP overnight. On 3 L nasal cannula this morning. No fevers. White count improving. Denies nausea or vomiting. Tolerating p.o. intake. Being fed by staff. Medical Exam Vital signs and Labs for Last 24 Hours: Vital Signs Temp Pulse Pulse Resp BP Pulse Ox O2 Del Method 12/20/24 14:47 Nasal Cannula 12/20/24 13:00 Nasal Cannula 12/20/24 12:00 80 12/20/24 12:00 98.5 F 74 16 124/68 99 Nasal Cannula 12/20/24 11:00 Nasal Cannula 12/20/24 11:00 79 12/20/24 11:00 80 12/20/24 08:05 Nasal Cannula 12/20/24 08:00 70 12/20/24 08:00 97.9 F 70 18 126/71 99 Nasal Cannula 12/20/24 06:56 BiPAP 12/20/24 06:37 70 12/20/24 06:37 71 12/20/24 06:37 12/20/24 05:00 BiPAP 12/20/24 04:00 97.6 F 74 18 137/90 100 BiPAP 12/20/24 04:00 60 12/20/24 03:00 BiPAP 12/20/24 02:55 12/20/24 01:00 BiPAP 12/20/24 00:00 90 12/19/24 23:52 81 12/19/24 23:52 84 12/19/24 23:52 97 BiPAP 12/19/24 23:43 98.7 F 82 18 129/67 100 BiPAP 12/19/24 23:00 BiPAP 12/19/24 22:35 12/19/24 21:00 Nasal Cannula 12/19/24 20:00 60 12/19/24 20:00 12 97 Nasal Cannula 12/19/24 20:00 99.1 F 83 12 121/66 97 Nasal Cannula 12/19/24 18:39 86 12/19/24 18:39 90 12/19/24 18:39 95 Nasal Cannula 12/19/24 17:00 Nasal Cannula O2 Flow Rate FiO2 12/20/24 14:47 12/20/24 13:00 2 12/20/24 12:00 12/20/24 12:00 3 12/20/24 11:00 2 12/20/24 11:00 12/20/24 11:00 12/20/24 08:05 2 12/20/24 08:00 12/20/24 08:00 12/20/24 06:56 12/20/24 06:37 12/20/24 06:37 12/20/24 06:37 36 12/20/24 05:00 12/20/24 04:00 12/20/24 04:00 12/20/24 03:00 12/20/24 02:55 36 12/20/24 01:00 12/20/24 00:00 12/19/24 23:52 12/19/24 23:52 12/19/24 23:52 36 12/19/24 23:43 12/19/24 23:00 12/19/24 22:35 36 12/19/24 21:00 2 12/19/24 20:00 12/19/24 20:00 2 12/19/24 20:00 2 12/19/24 18:39 12/19/24 18:39 12/19/24 18:39 2 12/19/24 17:00 2 Intake and Output 12/20/24 12/20/24 12/20/24 07:59 15:59 23:59 Intake Total 1340 / 2020 680 / 2020 Output Total 300 / 700 400 / 700 Balance 1040 / 1320 280 / 1320 Intake: Intake, Oral Amount 240 / 870 630 / 870 Intake, Total IV Amount 1100 / 1150 50 / 1150 Dextrose 5 % in Water 1,000 ml 1000 / 1000 @ 75 mls/hr IV .[id number] [facility] Rx# :[id number] Pipercillin/Tazo 3.375 gm In 0. 100 / 150 50 / 150 9 % Sodium Chloride 50 ml @ 100 mls/hr IV Q6H [facility] Rx#:[id number] Output: Output, Urine Amount 300 / 700 400 / 700 Other: Number of Unmeasured Voids 0 0 Weight 85.049 kg Patient Weight 12/20/24 23:59 Weight 85.049 kg Laboratory Results - last 24 hr 12/19/24 16:57: POC Glucose 158 H 12/19/24 19:56: POC Glucose 240 H 12/20/24 05:57: POC Glucose 206 H 12/20/24 05:58: WBC 13.6 H D, RBC 3.50 L, Hgb 11.8 L, Hct 38.8 L, MCV 110.9 H, MCH 33.7 H, MCHC 30.4 L, RDW 13.9, Plt Count 191, MPV 10.7 H, Neut % (Auto) 77.2, Lymph % (Auto) 14.5, Hunt % (Auto) 6.5, Eos % (Auto) 1.0, Baso % (Auto) 0.4, Neut # (Auto) 10.5 H, Lymph # (Auto) 2.0, Hunt # (Auto) 0.9, Eos # (Auto) 0.1, Baso # (Auto) 0.1, Sodium 143, Potassium 3.5, Chloride 110 H, Carbon Dioxide 24, Anion Gap 12.5, BUN 24 H, Creatinine 1.40 H, Estimated Creat Clear 63, Estimated GFR 51 L, Est GFR ( Amer) 62, Glucose 217 H, Calcium 8.1 L, Magnesium 2.3, Total Bilirubin 0.6, AST 22 D, ALT 18, Alkaline Phosphatase 72, Total Protein 7.6, Albumin 4.0, Globulin 3.6 H, Albumin/Globulin Ratio 1.1 12/20/24 11:43: POC Glucose 139 H I & O for Labs for Last 24 Hours: Intake & Output 12/17/24 12/18/24 12/19/24 12/20/24 23:59 23:59 22:59 23:59 Intake Total 300 / 400 2740 / 2980 2019 Output Total 300 / 300 700 / 700 Balance 300 / 350 2440 / 2680 1320 / 1320 Weight 80.104 kg 83.007 kg 85.049 kg Microbiology Reports for the Last 24 Hours: Microbiology 12/18/24 15:43 Blood Blood Culture - Preliminary NO GROWTH AFTER 48 HOURS 12/18/24 15:43 Blood Blood Culture - Preliminary NO GROWTH AFTER 48 HOURS 12/18/24 15:54 Urine,Clean Catch Urine Culture - Final No growth. Constitutional: Present no acute distress, obese, chronically ill appearing and cooperative Head: Present atraumatic and normocephalic ENT: Present normal exam Respiratory: Present rhonchi and normal respiratory effort; Absent wheezes or crackles Cardiac: Present Reg Rate and Rhythm GI: Present soft and normal bowel sounds; Absent distention or tenderness Comment:: Thin extremities, sarcopenia of legs. Skin: Present intact; Absent erythema Neuro: Present alert and awake Comment:: Interactive on exam. Answers questions with staff. Did not answer them with me however. Assessment and Plan *Assessment and plan (1) Sepsis: Status: Acute Category: Medical Code(s): A41.9 - Sepsis, unspecified organism (2) Pneumonia: Status: Acute Category: Medical Code(s): J18.9 - Pneumonia, unspecified organism (3) Chronic heart failure with preserved ejection fraction (HFpEF): Status: Acute Category: Medical Code(s): I50.32 - Chronic diastolic (congestive) heart failure (4) Cerebral palsy: Status: Acute Category: Medical Code(s): G80.9 - Cerebral palsy, unspecified (5) Debility: Status: Acute Category: Medical Code(s): R53.81 - Other malaise (6) Diabetes mellitus: Status: Acute Category: Medical Code(s): E11.9 - Type 2 diabetes mellitus without complications (7) Hypothyroid: Status: Acute Category: Medical Code(s): E03.9 - Hypothyroidism, unspecified (8) RAJAN (obstructive sleep apnea): Status: Acute Category: Medical Code(s): G47.33 - Obstructive sleep apnea (adult) (pediatric) (9) GERD (gastroesophageal reflux disease): Status: Acute Category: Medical Code(s): K21.9 - Gastro-esophageal reflux disease without esophagitis (10) Depression: Status: Acute Category: Medical Code(s): F32.A - Depression, unspecified (11) BPH (benign prostatic hyperplasia): Status: Acute Category: Medical Code(s): N40.0 - Benign prostatic hyperplasia without lower urinary tract symptoms (12) CAD (coronary artery disease): Status: Acute Qualifiers: Associated angina: with other forms of angina Coronary Disease- Associated Artery/Lesion type: [place] artery [place] vs. transplanted heart: [place] heart Qualified Code(s): I25.118 - Atherosclerotic heart disease of [place] coronary artery with other forms of angina pectoris Category: Medical Code(s): I25.10 - Atherosclerotic heart disease of [place] coronary artery without angina pectoris (13) HTN (hypertension): Status: Chronic Qualifiers: Hypertension type: primary hypertension Qualified Code(s): I10 - Essential (primary) hypertension Category: Medical Code(s): I10 - Essential (primary) hypertension (14) Complex sleep apnea syndrome: Problem Comment: Noncompliant with BiPAP therapy. 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 Status: Chronic Category: Medical (16) Hydrocephalus: Status: Chronic Category: Medical Code(s): G91.9 - Hydrocephalus, unspecified Plan Mr. Blakely is a 63-year-old male with multiple comorbidities who presented to the ER for altered mental status/hypoxia. Found to have sepsis from left lower lobe pneumonia along with hypernatremia. Discussed case with ER provider, request admission for further management including IV antibiotics of his pneumonia and sepsis. I decided to admit for further care. Showing improvement. Tolerated IV fluids yesterday. Will hold on IV fluids today due to normalization of sodium. Anticipate discharge in the next day or 2. Proble ms addressed as follows: Sepsis Pneumonia, Left lower lobe, present on admisson Acute on chronic hypoxemic respiratory failure Metabolic encephalopathy - Meeting sepsis criteria with white count of 15.3, tachycardic above 90 consistently, fever one 1.5. Suspected UTI versus left lower lobe pneumonia. Rhonchi on exam. -Initiated on vancomycin IV 2 g and Zosyn 3.375 g every 6 hours. Continue hi ncocin, pharmacy to assist with dosing. Continue Zosyn. - Repeat CBC, CMP, magnesium ordered for the morning. - W white count improved to 13.6. Hemoglobin stable at 11.8. - Blood, urine, sputum cultures pending -GCS improving at 15. Baseline mentation today. - Tolerated BiPAP, continue nightly per home settings; on 3 L nasal cannula during the day. Goal sats greater 90%. - Chest CT did not show focal consolidation. Does still have rhonchi. Evaluating urine for possible UTI as source of his sepsis. - Urine interestingly shows 20-50 white cells, 2+ bacteria, negative nitrite but trace leuk esterase. Has had previous urinary infections. Previous cultures with Citrobacter all sensitive to Zosyn. - DuoNebs every 6 hours scheduled Sodium improved to 143 this morning, chloride 110. Kidney function stable with BUN 24, creatinine 1.4. Hypernatremia: Sodium 150, chloride 110 on admission. Sodium improved to 143 this morning. Chloride 110. Correct between 6 and 8 mEq a day. Will hold on further IV fluids today. Monitoring level every 12 hours TAURUS: BUN improved to 24, creatinine 1.4. Slowly trending to baseline of 1.1- 1.2. Repeat CBC, CMP, magnesium ordered for the morning. Schizoaffective disorder: Holding gabapentin, Vraylar, Cymbalta pending med reconciliation. Continue Keppra 1000 mg twice daily for seizure disorder Hypertension: Holding losartan, spironolactone, isosorbide, Lipitor in the setting of sepsis Hypothyroid: TSH 1.4 on 12/01. No change to regimen. Continue levothyroxine 50 mcg daily Diabetes: A1c 5.6 on 12/01. Well-controlled. Will hold metformin and insulin glargine at this time. Continue sliding scale insulin with fingersticks ACHS. Continue high intensity sliding scale insulin, morning glucose 247 Obesity and debility complicate all aspects of his care Holding trazodone nightly for sleep due to sedation Continue tamsulosin 0.8 mg HS for BPH Full code PLOV Mechanical soft/Diabetic diet
[2024-12-20 17:21] LABS: POC Glucose,Bedside 193 gm/dL (70-110)
[2024-12-20 17:46] LABS: Anion Gap 8.4 mEq/L (5-15); Blood Urea Nitrogen 22 mg/dl (9-20); Calcium 8.1 mg/dl (8.4-10.2); Carbon Dioxide 28 mmol/L (22.0-30.0); Chloride 108 mmol/L (98-107); Creatinine Clearance Estimated 68 mL/min (50-200); Creatinine,Serum 1.30 mg/dl (0.66-1.25); Estimated Glomerular Filt Rate 55 ml/min (>60); GFR (African American) 67 ML/MIN (>60); Glucose 206 mg/dl (74-100); Potassium 3.4 mmoL/L (3.5-5.1); Sodium 141 mmol/L (136-145)
[2024-12-20] MEDS: VANCOMYCIN/WATER FOR INJ (PEG) 1.5 GM/300 ML PIGGYBACK IV (19:44)
--- NOTE | 2024-12-20 19:48 | PC.NURSE ---
PT IS RESTING IN BED. ALERT AND ORIENTED X2. EATING AND DRINKING WELL. TURNED AND REPOSITIONED IN BED. REDNESS NOTED TO BUTTOCKS. OPEN AREAS NOTED TO SCROTUM. LUNG SOUNDS DIMINISHED WITH SCATTERED RHONCHI. ABDOMEN SOFT/LARGE/NON TENDER WITH ACTIVE BOWEL SOUNDS. TOLERATED BATH AND LINEN CHANGE THIS SHIFT. O2 SATURATION HAS MAINTAINED 90-94% ON 2 L NC. WILL CONTINUE TO MONITOR.
[2024-12-20 21:46] LABS: POC Glucose,Bedside 146 gm/dL (70-110)
[2024-12-20] MEDS: TAMSULOSIN 0.4MG CAPSULE 0.8 MG PO (21:51)
[2024-12-20] MEDS: TRAMADOL 50MG TABLET 100 MG PO (21:51)
--- NOTE | 2024-12-20 23:42 | PC.NURSE ---
Patient refused bipap
[2024-12-21] VITALS (11 sets, daily range): BP systolic 108–141; BP diastolic 59–86; PULSE 57–80; RESP 18; TEMP 36.7–37.1; O2SAT 93–100; BMI 26.8
[2024-12-21] MEDS: ACETAMINOPHEN 325MG TAB 650 MG PO (00:41)
[2024-12-21 05:16] LABS: POC Glucose,Bedside 170 gm/dL (70-110)
[2024-12-21] MEDS: PIPERCILLIN/TAZO 3.375 GM in 0.9 % SODIUM CHLORIDE 50 ML IV ×3 (05:20→16:30)
[2024-12-21] MEDS: humaLOG 100 UNITS/ML 10ML VIAL (SSI) SUBCUT ×4 (05:21→21:03)
[2024-12-21 06:31] LABS: Hematocrit 35.4 % (42.0-52.0); Immature Granulocytes % 0.4 %; Mean Corpuscular HGB Conc 29.9 g/dL (31.8-35.4); Mean Corpuscular Hemoglobin 32.5 pg (27.0-31.2); Mean Corpuscular Volume 108.6 fl (80-94); Nucleated Red Blood Cells % 0 %; Platelet Count 173 K/mm3 (142-424); Red Blood Count 3.26 M/mm3 (4.60-6.20); Red Cell Distribution Width-SD 54.9 fL; White Blood Count 11.5 K/mm3 (4.8-10.8)
[2024-12-21 06:42] LABS: Hemoglobin 10.6 g/dL (14.1-18.0)
[2024-12-21] MEDS: IPRATROPIUM/ALBUTEROL 3 ML NEB IH ×2 (06:44→11:16)
[2024-12-21 06:45] LABS: Chloride 107 mmol/L (98-107)
[2024-12-21 06:46] LABS: Albumin Level 4.2 g/dl (3.5-5.0); Potassium 3.5 mmoL/L (3.5-5.1); Sodium 142 mmol/L (136-145)
[2024-12-21 06:48] LABS: Blood Urea Nitrogen 19 mg/dl (9-20); Creatinine Clearance Estimated 74 mL/min (50-200); Creatinine,Serum 1.20 mg/dl (0.66-1.25); Estimated Glomerular Filt Rate 61 ml/min (>60); GFR (African American) 74 ML/MIN (>60)
[2024-12-21 06:49] LABS: Alanine Aminotransferase 17 U/L (12-78); Albumin/Globulin Ratio 1.5 (1.1-1.8); Alkaline Phosphatase 71 U/L (38-126); Anion Gap 11.5 mEq/L (5-15); Aspartate Amino Transferase 21 U/L (17-59); Bilirubin,Total 0.6 mg/dl (0.2-1.3); Calcium 7.5 mg/dl (8.4-10.2); Carbon Dioxide 27 mmol/L (22.0-30.0); Globulin 2.8 g/dL (1.3-3.2); Glucose 164 mg/dl (74-100); Total Protein,Serum 7.0 g/dl (6.3-8.2)
[2024-12-21 06:50] LABS: Magnesium 2.5 mg/dl (1.6-2.3)
--- NOTE | 2024-12-21 07:46 | PC.NURSE ---
Pt. is alert to name and place. Pt. was interactive last night and able to answer some questions. Pt. getting IV antibiotics. Pt. refued his breathing treatment nebs and BIPAP last night. After several conversations he consented to the Nebs and BiPAP mask. Pt. is total dependant care. utrned side to side. Bed in low and locked position. Bed alarm on. Pt. checked frequently as pt. is unabl eto use the call light.
[2024-12-21] MEDS: TRAMADOL 50MG TABLET 100 MG PO ×3 (09:23→21:05)
[2024-12-21] MEDS: GABAPENTIN 600MG TABLET 600 MG PO ×3 (09:23→21:07)
[2024-12-21] MEDS: POTASSIUM CHLORIDE 20MEQ TAB 40 MEQ PO ×2 (09:23→12:17)
[2024-12-21] MEDS: LEVOTHYROXINE 50MCG (0.05MG) TAB 50 MCG PO (09:23)
[2024-12-21] MEDS: DOCUSATE SODIUM 100 MG CAPSULE PO (09:24)
--- NOTE | 2024-12-21 11:02 | XR_ITS ---
FINAL REPORT CLINICAL HISTORY: LLQ pain, no BM in 1-2 weeks FINDINGS: A single supine view the abdomen was obtained. The stomach is distended with air. The bowel gas pattern is otherwise nonspecific, nonobstructive. There is a large amount of stool in the colon. There are no pathologic calcifications. Osseous structures are within normal limits. IMPRESSION: Gaseous distention of stomach and constipation. Reviewed, Interpreted and Dictated by Minoo Solis MD Transcribed by Yarelis Chappell Authenticated and [facility]
--- NOTE | 2024-12-21 11:41 | HMH.ITSTN ---
unable to do xray at this time
[2024-12-21 12:14] LABS: POC Glucose,Bedside 178 gm/dL (70-110)
[2024-12-21] MEDS: BISACODYL 5MG TABLET 10 MG PO (12:14)
[2024-12-21] MEDS: TIOTROPIUM 18MCG/PUFF INHALER 1 CAP IH (12:14)
[2024-12-21] MEDS: POLYETHYLENE GLYCOL 3350 17 GM PACKET PO (12:14)
[2024-12-21] MEDS: TAMSULOSIN 0.4MG CAPSULE 0.4 MG PO (12:45)
[2024-12-21] MEDS: MINERAL OIL ENEMA 133ML 133 ML RC (15:52)
[2024-12-21 18:58] LABS: Vancomycin,Trough 10.5 ug/mL (5.0-10.0)
--- NOTE | 2024-12-21 19:04 | EXP.PN ---
Subjective *Date: 12/21/24 *Time: 19:04 Interval history: Patient feeling better, but having left lower quadrant abdominal pain. Has fecal impaction, on bowel regimen. Follow-up bowel movement. Exam Data for Last 24 hours Vital signs and Labs for Last 24 Hours: Temp Pulse Resp BP Pulse Ox O2 Del Method O2 Flow Rate 98.5 F 69 18 108/65 L 100 Nasal Cannula 2 12/21/24 16:00 12/21/24 16:00 12/21/24 16:00 12/21/24 16:00 12/21/24 16:00 12/21/24 18:47 12/21/24 18:47 FiO2 36 12/21/24 07:59 Laboratory Results - last 24 hr 12/20/24 21:39: POC Glucose 146 H 12/21/24 05:09: POC Glucose 170 H 12/21/24 05:35: WBC 11.5 H, RBC 3.26 L, Hgb 10.6 L D, Hct 35.4 L, MCV 108.6 H, MCH 32.5 H, MCHC 29.9 L, RDW 13.6, Plt Count 173, MPV 10.7 H, Neut % (Auto) 74.4, Lymph % (Auto) 15.8, [place] % (Auto) 7.0, Eos % (Auto) 2.1, Baso % (Auto) 0.3, Neut # (Auto) 8.5 H, Lymph # (Auto) 1.8, [place] # (Auto) 0.8, Eos # (Auto) 0.2, Baso # (Auto) 0.0, Sodium 142, Potassium 3.5, Chloride 107, Carbon Dioxide 27, Anion Gap 11.5, BUN 19, Creatinine 1.20, Estimated Creat Clear 74, Estimated GFR 61, Est GFR ( Amer) 74, Glucose 164 H D, Calcium 7.5 L, Magnesium 2.5 H, Total Bilirubin 0.6, AST 21, ALT 17, Alkaline Phosphatase 71, Total Protein 7.0, Albumin 4.2, Globulin 2.8, Albumin/Globulin Ratio 1.5 12/21/24 11:22: POC Glucose 178 H I & O for Last 24 hours: Intake & Output 12/18/24 12/19/24 12/20/24 12/21/24 23:59 22:59 23:59 23:59 Intake Total 300 / 400 2740 / 2980 2610 / 2850 1760 / 1760 Output Total 300 / 300 700 / 700 450 / 450 Balance 300 / 350 2440 / 2680 1910 / 2150 1310 / 1310 Weight 80.104 kg 83.007 kg 85.049 kg 84.907 kg Microbiology Reports for the Last 24 Hours: Microbiology 12/18/24 15:43 Blood Blood Culture - Preliminary NO GROWTH AFTER 48 HOURS 12/18/24 15:43 Blood Blood Culture - Preliminary NO GROWTH AFTER 48 HOURS Constitutional Constitutional: no acute distress *Routine HEENT Exam Head: Present normocephalic Eye: Present EOMI and PERRL ENT: Present mucous membranes moist *Routine Neck Exam Neck: Present supple; Absent lymphadenopathy *Routine Respiratory Exam Respiratory: Present CTA bilaterally *Routine Cardiovascular Exam Cardiovascular: Present RRR *Routine Abdominal Exam Abdominal: Present soft and normoactive bowel sounds; Absent tenderness *Routine Extremities Exam Extremities: Absent cyanosis, clubbing or edema *Routine Skin Exam Skin: Present warm; Absent rash *Routine Neurological Exam Neurological: Present alert and oriented X3 Assessment and Plan *Assessment and plan (1) Sepsis: Status: Acute Category: Medical Code(s): A41.9 - Sepsis, unspecified organism (2) Pneumonia: Status: Acute Category: Medical Code(s): J18.9 - Pneumonia, unspecified organism (3) Chronic heart failure with preserved ejection fraction (HFpEF): Status: Acute Category: Medical Code(s): I50.32 - Chronic diastolic (congestive) heart failure (4) Cerebral palsy: Status: Acute Category: Medical Code(s): G80.9 - Cerebral palsy, unspecified (5) Debility: Status: Acute Category: Medical Code(s): R53.81 - Other malaise (6) Diabetes mellitus: Status: Acute Category: Medical Code(s): E11.9 - Type 2 diabetes mellitus without complications (7) Hypothyroid: Status: Acute Category: Medical Code(s): E03.9 - Hypothyroidism, unspecified (8) RAAJN (obstructive sleep apnea): Status: Acute Category: Medical Code(s): G47.33 - Obstructive sleep apnea (adult) (pediatric) (9) GERD (gastroesophageal reflux disease): Status: Acute Category: Medical Code(s): K21.9 - Gastro-esophageal reflux disease without esophagitis (10) Depression: Status: Acute Category: Medical Code(s): F32.A - Depression, unspecified (11) BPH (benign prostatic hyperplasia): Status: Acute Category: Medical Code(s): N40.0 - Benign prostatic hyperplasia without lower urinary tract symptoms (12) CAD (coronary artery disease): Status: Acute Qualifiers: Coronary Disease-Associated Artery/Lesion type: [place] artery [place] vs. transplanted heart: [place] heart Associated angina: with other forms of angina Qualified Code(s): I25.118 - Atherosclerotic heart disease of [place] coronary artery with other forms of angina pectoris Category: Medical Code(s): I25.10 - Atherosclerotic heart disease of [place] coronary artery without angina pectoris (13) HTN (hypertension): Status: Chronic Qualifiers: Hypertension type: primary hypertension Qualified Code(s): I10 - Essential (primary) hypertension Category: Medical Code(s): I10 - Essential (primary) hypertension (14) Complex sleep apnea syndrome: Problem Comment: Noncompliant with BiPAP therapy. 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 Status: Chronic Category: Medical (16) Hydrocephalus: Status: Chronic Category: Medical Code(s): G91.9 - Hydrocephalus, unspecified Plan Mr. Blakely is a 63-year-old male with multiple comorbidities who presented to the ER for altered mental status/hypoxia. Found to have sepsis from left lower lobe pneumonia along with hypernatremia. Discussed case with ER provider, request admission for further management including IV antibiotics of his pneumonia and sepsis. I decided to admit for further care. Showing improvement. Tolerated IV fluids yesterday. Will hold on IV fluids today due to normalization of sodium. Anticipate discharge in the next day or 2. Problems addressed as follows: Sepsis, resolved Pneumonia, Left lower lobe, present on admisson Acute on chronic hypoxemic respiratory failure Metabolic encephalopathy, resolving - Meeting sepsis criteria with white count of 15.3, tachycardic above 90 consistently, fever one 1.5. Suspected UTI versus left lower lobe pneumonia. Rhonchi on exam. -Initiated on vancomycin IV 2 g and Zosyn 3.375 g every 6 hours. Continue vancomycin, pharmacy to assist with dosing. Continue Zosyn. - Repeat CBC, CMP, magnesium ordered for the morning. - W white count improved to 11.5, peaked at 18. - Blood, urine, sputum cultures pending -GCS improving at 15. Baseline mentation today. - Tolerated BiPAP, continue nightly per home settings; on 3 L nasal cannula during the day. Goal sats greater 90%. Continue BiPAP nightly. - Chest CT did not show focal consolidation. Does still have rhonchi. Evaluating urine for possible UTI as source of his sepsis. - Urine interestingly shows 20-50 white cells, 2+ bacteria, negative nitrite but trace leuk esterase. Has had previous urinary infections. Previous cultures with Citrobacter all sensitive to Zosyn. Urine culture normal. - DuoNebs every 6 hours scheduled #Severe constipation ? Patient has not had a bowel movement in 1 to 2 weeks, has left lower quadrant pain with fecal impaction on KUB. ? Ordered mineral oil, lactulose, MiraLAX. Patient feels like he is about to have a bowel meant, will monitor overnight. Sodium improved to 142 this morning, chloride 110. Kidney function stable with , creatinine 1.2. Hypernatremia: Sodium 150, chloride 110 on admission. Sodium improved to 142 this morning. Chloride 110. Correct between 6 and 8 mEq a day. Will hold on further IV fluids today. Monitoring level every 12 hours TAURUS: BUN improved to 24, creatinine 1.4. Slowly trending to baseline of 1.1-1.2. Repeat CBC, CMP, magnesium ordered for the morning. Schizoaffective disorder: Holding gabapentin, Vraylar, Cymbalta pending med reconciliation. Continue Keppra 1000 mg twice daily for seizure disorder Hypertension: Holding losartan, spironolactone, isosorbide, Lipitor in the setting of sepsis Hypothyroid: TSH 1.4 on 12/01. No change to regimen. Continue levothyroxine 50 mcg daily Diabetes: A1c 5.6 on 12/01. Well-controlled. Will hold metformin and insulin glargine at this time. Continue sliding scale insulin with fingersticks ACHS. Continue high intensity sliding scale insulin, morning glucose 247 Obesity and debility complicate all aspects of his care Holding trazodone nightly for sleep due to sedation Continue tamsulosin 0.8 mg HS for BPH Full code PLOV Mechanical soft/Diabetic diet
[2024-12-21] MEDS: VANCOMYCIN/WATER FOR INJ (PEG) 1.5 GM/300 ML PIGGYBACK IV (20:55)
[2024-12-21] MEDS: TAMSULOSIN 0.4MG CAPSULE 0.8 MG PO (21:06)
[2024-12-21] MEDS: PANTOPRAZOLE 40MG TABLET 40 MG PO (21:07)
[2024-12-21 21:49] LABS: POC Glucose,Bedside 182 gm/dL (70-110)
--- NOTE | 2024-12-21 23:52 | PC.NURSE ---
Patient refused bipap
[2024-12-22] VITALS (7 sets, daily range): BP systolic 125–137; BP diastolic 69–78; PULSE 72–91; RESP 16–18; TEMP 36.7–36.9; O2SAT 94–99; BMI 27.1
[2024-12-22] MEDS: PIPERCILLIN/TAZO 3.375 GM in 0.9 % SODIUM CHLORIDE 50 ML IV ×3 (00:09→12:17)
[2024-12-22] MEDS: TRAMADOL 50MG TABLET 100 MG PO ×3 (03:06→15:25)
--- NOTE | 2024-12-22 04:44 | PC.NURSE ---
Pt. is alert to name and place. Pt. is on oxygen 2 liters per N/C. Pt. has been very interactive and talkative this shift. Pt. c/o no recent bowel movement. Pt. was given several medications for bowel regime. No results yet. Pt. c/o intermittent abdominal pains. Pt. was passing gas but no stool output. Pt. refused BiPAP overnight. Pt. getting IV antibiotics tolerating well. Pt. unable to use call light, checked on frequently. Pt. slept on and off this shift. Bed in low and locked position. Bed alarm on. Safety measures in place.
[2024-12-22] MEDS: humaLOG 100 UNITS/ML 10ML VIAL (SSI) SUBCUT (05:44)
[2024-12-22 06:03] LABS: POC Glucose,Bedside 168 gm/dL (70-110)
[2024-12-22] MEDS: IPRATROPIUM/ALBUTEROL 3 ML NEB IH ×2 (06:08→12:55)
[2024-12-22] MEDS: TIOTROPIUM 18MCG/PUFF INHALER 1 CAP IH (06:14)
[2024-12-22 06:15] LABS: Hematocrit 32.3 % (42.0-52.0); Hemoglobin 10.0 g/dL (14.1-18.0); Immature Granulocytes % 0.7 %; Mean Corpuscular HGB Conc 31.0 g/dL (31.8-35.4); Mean Corpuscular Hemoglobin 33.0 pg (27.0-31.2); Mean Corpuscular Volume 106.6 fl (80-94); Nucleated Red Blood Cells % 0 %; Platelet Count 164 K/mm3 (142-424); Red Blood Count 3.03 M/mm3 (4.60-6.20); Red Cell Distribution Width-SD 52.9 fL; White Blood Count 11.0 K/mm3 (4.8-10.8)
[2024-12-22 06:19] LABS: Chloride 106 mmol/L (98-107)
[2024-12-22 06:20] LABS: Albumin Level 4.1 g/dl (3.5-5.0); Potassium 3.7 mmoL/L (3.5-5.1); Sodium 138 mmol/L (136-145)
[2024-12-22 06:22] LABS: Alanine Aminotransferase 18 U/L (12-78); Albumin/Globulin Ratio 1.6 (1.1-1.8); Alkaline Phosphatase 80 U/L (38-126); Anion Gap 9.7 mEq/L (5-15); Aspartate Amino Transferase 26 U/L (17-59); Bilirubin,Total 0.5 mg/dl (0.2-1.3); Blood Urea Nitrogen 12 mg/dl (9-20); Carbon Dioxide 26 mmol/L (22.0-30.0); Creatinine Clearance Estimated 89 mL/min (50-200); Creatinine,Serum 1.00 mg/dl (0.66-1.25); Estimated Glomerular Filt Rate 75 ml/min (>60); GFR (African American) 90 ML/MIN (>60); Globulin 2.6 g/dL (1.3-3.2); Total Protein,Serum 6.7 g/dl (6.3-8.2)
[2024-12-22 06:23] LABS: Calcium 7.9 mg/dl (8.4-10.2); Glucose 164 mg/dl (74-100)
--- NOTE | 2024-12-22 07:50 | EXP.PHA.PN ---
Subjective *Date: 12/22/24 *Time: 07:50 Medical Exam Vital signs and Labs for Last 24 Hours: Vital Signs Temp Pulse Pulse Resp BP Pulse Ox O2 Del Method 12/22/24 07:28 98.2 F 72 16 128/78 94 L Nasal Cannula 12/22/24 07:00 Nasal Cannula 12/22/24 06:09 72 12/22/24 06:09 78 12/22/24 06:09 98 Nasal Cannula 12/22/24 05:00 Nasal Cannula 12/22/24 04:00 80 12/22/24 04:00 98.4 F 76 18 137/75 97 Nasal Cannula 12/22/24 03:00 Nasal Cannula 12/22/24 01:00 Nasal Cannula 12/22/24 00:00 98.2 F 72 18 126/69 98 Nasal Cannula 12/21/24 23:00 Nasal Cannula 12/21/24 21:00 Nasal Cannula 12/21/24 20:00 18 96 Nasal Cannula 12/21/24 20:00 80 12/21/24 19:59 98.8 F 76 18 126/59 L 96 Nasal Cannula 12/21/24 18:47 Nasal Cannula 12/21/24 18:36 Nasal Cannula 12/21/24 17:00 Nasal Cannula 12/21/24 16:00 98.5 F 69 18 108/65 L 100 Nasal Cannula 12/21/24 15:00 Nasal Cannula 12/21/24 13:00 Nasal Cannula 12/21/24 12:00 70 12/21/24 12:00 98.1 F 73 18 124/62 99 Nasal Cannula 12/21/24 11:16 58 L 12/21/24 11:16 60 12/21/24 11:00 Nasal Cannula 12/21/24 09:00 Nasal Cannula 12/21/24 08:00 60 12/21/24 08:00 Nasal Cannula 12/21/24 07:59 98.2 F 67 18 130/86 100 BiPAP O2 Flow Rate FiO2 12/22/24 07:28 12/22/24 07:00 2 12/22/24 06:09 12/22/24 06:09 12/22/24 06:09 2 12/22/24 05:00 2 12/22/24 04:00 12/22/24 04:00 2 12/22/24 03:00 2 12/22/24 01:00 2 12/22/24 00:00 2 12/21/24 23:00 2 12/21/24 21:00 2 12/21/24 20:00 2 12/21/24 20:00 12/21/24 19:59 2 12/21/24 18:47 2 12/21/24 18:36 2 12/21/24 17:00 2 12/21/24 16:00 2 12/21/24 15:00 2 12/21/24 13:00 2 12/21/24 12:00 12/21/24 12:00 2 12/21/24 11:16 12/21/24 11:16 12/21/24 11:00 2 12/21/24 09:00 2 12/21/24 08:00 12/21/24 08:00 2 12/21/24 07:59 36 Intake and Output 12/21/24 12/21/24 12/22/24 15:59 23:59 07:59 Intake Total 1420 / 2000 50 / 2000 590 / 590 Output Total 200 / 450 0 / 450 Balance 1220 / 1550 50 / 1550 590 / 590 Intake: Intake, Oral Amount 1320 / 1800 240 / 240 Intake, Total IV Amount 100 / 200 50 / 200 350 / 350 Pipercillin/Tazo 3.375 gm In 0. 100 / 200 50 / 200 50 / 50 9 % Sodium Chloride 50 ml @ 100 mls/hr IV Q6H [facility] Rx#:[id number] Vancomycin/Water For Inj (Peg) 300 / 300 1.5 gm In 300 ml @ 150 mls/hr IV Q24H [facility] Rx#:[id number] Output: Output, Urine Amount 200 / 450 0 / 450 Other: Number of Unmeasured Voids 0 1 Weight 86.183 kg Patient Weight 12/22/24 23:59 Weight 86.183 kg Laboratory Results - last 24 hr 12/21/24 11:22: POC Glucose 178 H 12/21/24 18:10: Vancomycin Trough 10.5 H 12/21/24 20:41: POC Glucose 182 H 12/22/24 05:30: WBC 11.0 H, RBC 3.03 L, Hgb 10.0 L, Hct 32.3 L, MCV 106.6 H, MCH 33.0 H, MCHC 31.0 L, RDW 13.3, Plt Count 164, MPV 10.8 H, Neut % (Auto) 78.7, Lymph % (Auto) 12.0, [place] % (Auto) 5.6, Eos % (Auto) 2.7, Baso % (Auto) 0.3, Neut # (Auto) 8.7 H, Lymph # (Auto) 1.3, [place] # (Auto) 0.6, Eos # (Auto) 0.3, Baso # (Auto) 0.0, Sodium 138, Potassium 3.7, Chloride 106, Carbon Dioxide 26, Anion Gap 9.7, BUN 12 D, Creatinine 1.00, Estimated Creat Clear 89, Estimated GFR 75, Est GFR ( Amer) 90 D, Glucose 164 H, POC Glucose 168 H, Calcium 7.9 L, Total Bilirubin 0.5, AST 26, ALT 18, Alkaline Phosphatase 80, Total Protein 6.7, Albumin 4.1, Globulin 2.6, Albumin/Globulin Ratio 1.6 I & O for Labs for Last 24 Hours: Intake & Output 12/19/24 12/20/24 12/21/24 12/22/24 22:59 23:59 23:59 23:59 Intake Total 2740 / 2980 2610 / 2850 1760 / 2000 590 / 590 Output Total 300 / 300 700 / 700 450 / 450 Balance 2440 / 2680 1910 / 2150 1310 / 1550 590 / 590 Weight 83.007 kg 85.049 kg 84.907 kg 86.183 kg The patient's infection will respond to the chosen ABx?: Yes Is the patient receiving the right drug, dose, and route?: Yes Could a more targeted ABx be ordered?: No (URINE AND BLOOD CX NG)
[2024-12-22] MEDS: POLYETHYLENE GLYCOL 3350 17 GM PACKET PO (08:38)
[2024-12-22] MEDS: GABAPENTIN 600MG TABLET 600 MG PO ×2 (08:39→12:18)
[2024-12-22] MEDS: LEVOTHYROXINE 50MCG (0.05MG) TAB 50 MCG PO (08:39)
[2024-12-22] MEDS: DOCUSATE SODIUM 100 MG CAPSULE PO (08:39)
[2024-12-22 11:17] LABS: POC Glucose,Bedside 145 gm/dL (70-110)
--- NOTE | 2024-12-22 12:26 | EXP.DC.SUM ---
General Admission date:: 12/18/24 HPI HPI HPI: Mr. Blakely is a 63-year-old male with history of CP, chronic respiratory failure on 2 L nasal cannula oxygen, is supposed to wear BiPAP at night for RAJAN but does not wear it regularly, schizoaffective disorder, diabetes, hypothyroid. He presented to the ER via EMS due to worsening confusion and fatigue over the past 24 hours. He was started on treatment for community-acquired pneumonia as an outpatient at his halfway with cefdinir and azithromycin 3 days ago. Developed temperature to 100.5 today. Increased oxygen requirement at his nursing facility to 4 L with baseline normally 2 L. Patient has minimal interaction at baseline. Can feed himself. Has had worsening confusion over the past 24 hours however. Was sent to the ER for evaluation. On arrival, found to have temperature of 101.5. GCS of 11 on arrival. White count elevated at 15. Tachycardic. Meeting sepsis criteria. Chest imaging in the ER positive for left lower lobe pneumonia. Also found to be hypernatremic with sodium of 150. Has struggled with hyponatremia in the past necessitating correction with IV fluids. Medicine consulted for admission and further management. On my evaluation, he opens his eyes to voice but is slow to respond. Responses are 1-2 word answers that are very weak to hear. Is off of his baseline mentation from my previous interactions with him. Unable to obtain any significant review of systems or history from patient. Hospital Course Hospital Course Hospital Course: Mr. Blakely is a 63-year-old male with multiple comorbidities who presented to the ER for altered mental status/hypoxia. Found to have sepsis from left lower lobe pneumonia along with hypernatremia. Discussed case with ER provider, request admission for further management including IV antibiotics of his pneumonia and sepsis. Sepsis, resolved Pneumonia, Left lower lobe, present on admisson Acute on chronic hypoxemic respiratory failure Metabolic encephalopathy, resolving - Initially met sepsis criteria with white count of 15.3, tachycardic above 90 consistently, fever one 101.5. Initially confused, encephalopathic. ? UA was also grossly abnormal, but urine culture normal. - Clinically improved with IV vancomycin, Zosyn. Will transition to levofloxacin. Patient was not able to produce sputum. ? Discharged with levofloxacin 750 mg for 2 more days. #Severe constipation ? Patient has not had a bowel movement in 1 to 2 weeks, has left lower quadrant pain with fecal impaction on KUB. ? Ordered mineral oil, lactulose, MiraLAX with significant bowel movement. Increase MiraLAX to 17 g twice daily. Hypernatremia: Sodium 150, chloride 110 on admission. Sodium improved to 138 this morning with IV and oral repletion. TAURUS: Creatinine improved from 1.4-1.0 with fluid resuscitation. Schizoaffective disorder: Continue gabapentin, Vraylar, Cymbalta. Continue Keppra 1000 mg twice daily for seizure disorder Hypertension: Holding losartan, spironolactone, isosorbide, Lipitor in the setting of sepsis Hypothyroid: TSH 1.4 on 12/01. No change to regimen. Continue levothyroxine 50 mcg daily Diabetes: A1c 5.6 on 12/01. Continue home metformin. Obesity and debility complicate all aspects of his care Continue tamsulosin 0.8 mg HS for BPH Exam Data for Last 24 hours Vital signs and Labs for Last 24 Hours: Temp Pulse Resp BP Pulse Ox O2 Del Method O2 Flow Rate 98.1 F 76 16 125/78 95 Nasal Cannula 2 12/22/24 11:18 12/22/24 11:18 12/22/24 11:18 12/22/24 11:18 12/22/24 11:18 12/22/24 11:18 12/22/24 11:00 FiO2 36 12/21/24 07:59 Laboratory Results - last 24 hr 12/21/24 18:10: Vancomycin Trough 10.5 H 12/21/24 20:41: POC Glucose 182 H 12/22/24 05:30: WBC 11.0 H, RBC 3.03 L, Hgb 10.0 L, Hct 32.3 L, MCV 106.6 H, MCH 33.0 H, MCHC 31.0 L, RDW 13.3, Plt Count 164, MPV 10.8 H, Neut % (Auto) 78.7, Lymph % (Auto) 12.0, [place] % (Auto) 5.6, Eos % (Auto) 2.7, Baso % (Auto) 0.3, Neut # (Auto) 8.7 H, Lymph # (Auto) 1.3, [place] # (Auto) 0.6, Eos # (Auto) 0.3, Baso # (Auto) 0.0, Sodium 138, Potassium 3.7, Chloride 106, Carbon Dioxide 26, Anion Gap 9.7, BUN 12 D, Creatinine 1.00, Estimated Creat Clear 89, Estimated GFR 75, Est GFR ( Amer) 90 D, Glucose 164 H, POC Glucose 168 H, Calcium 7.9 L, Total Bilirubin 0.5, AST 26, ALT 18, Alkaline Phosphatase 80, Total Protein 6.7, Albumin 4.1, Globulin 2.6, Albumin/Globulin Ratio 1.6 12/22/24 11:09: POC Glucose 145 H I & O for Last 24 hours: Intake & Output 12/19/24 12/20/24 12/21/24 12/22/24 22:59 23:59 23:59 23:59 Intake Total 2740 / 2980 2610 / 2850 1760 / 2000 640 / 640 Output Total 300 / 300 700 / 700 450 / 450 0 / 0 Balance 2440 / 2680 1910 / 2150 1310 / 1550 640 / 640 Weight 83.007 kg 85.049 kg 84.907 kg 86.183 kg Constitutional Constitutional: no acute distress and chronically ill appearing *Routine HEENT Exam Head: Present normocephalic Eye: Present EOMI and PERRL ENT: Present mucous membranes moist *Routine Neck Exam Neck: Present supple; Absent lymphadenopathy *Routine Respiratory Exam Respiratory: Present CTA bilaterally *Routine Cardiovascular Exam Cardiovascular: Present RRR *Routine Abdominal Exam Abdominal: Present soft and normoactive bowel sounds; Absent tenderness *Routine Extremities Exam Extremities: Absent cyanosis, clubbing or edema *Routine Skin Exam Skin: Present warm; Absent rash *Routine Neurological Exam Neurological: Present alert and oriented X3 Results Data Completed and Pending Labs on day of discharge: Labs from last 24 hours 12/22/24 12/22/24 12/21/24 11:09 05:30 20:41 WBC 11.0 H RBC 3.03 L Hgb 10.0 L Hct 32.3 L MCV 106.6 H MCH 33.0 H MCHC 31.0 L RDW 13.3 Plt Count 164 MPV 10.8 H Neut % (Auto) 78.7 Lymph % (Auto) 12.0 [place] % (Auto) 5.6 Eos % (Auto) 2.7 Baso % (Auto) 0.3 Neut # (Auto) 8.7 H Lymph # (Auto) 1.3 [place] # (Auto) 0.6 Eos # (Auto) 0.3 Baso # (Auto) 0.0 Sodium 138 Potassium 3.7 Chloride 106 Carbon Dioxide 26 Anion Gap 9.7 BUN 12 D Creatinine 1.00 Estimated Creat Clear 89 Estimated GFR 75 Est GFR ( Amer) 90 D Glucose 164 H POC Glucose 145 H 168 H 182 H Calcium 7.9 L Total Bilirubin 0.5 AST 26 ALT 18 Alkaline Phosphatase 80 Total Protein 6.7 Albumin 4.1 Globulin 2.6 Albumin/Globulin Ratio 1.6 Vancomycin Trough 12/21/24 18:10 WBC RBC Hgb Hct MCV MCH MCHC RDW Plt Count MPV Neut % (Auto) Lymph % (Auto) [place] % (Auto) Eos % (Auto) Baso % (Auto) Neut # (Auto) Lymph # (Auto) [place] # (Auto) Eos # (Auto) Baso # (Auto) Sodium Potassium Chloride Carbon Dioxide Anion Gap BUN Creatinine Estimated Creat Clear Estimated GFR Est GFR ( Amer) Glucose POC Glucose Calcium Total Bilirubin AST ALT Alkaline Phosphatase Total Protein Albumin Globulin Albumin/Globulin Ratio Vancomycin Trough 10.5 H Preliminary micro results at discharge 12/18/24 15:43 Blood Culture - Preliminary Blood NO GROWTH AFTER 48 HOURS 12/18/24 15:43 Blood Culture - Preliminary Blood NO GROWTH AFTER 48 HOURS DS: Diagnosis Discharge Diagnosis (1) Sepsis: Status: Acute Code(s): A41.9 - Sepsis, unspecified organism (2) Pneumonia: Status: Acute Code(s): J18.9 - Pneumonia, unspecified organism (3) Chronic heart failure with preserved ejection fraction (HFpEF): Status: Acute Code(s): I50.32 - Chronic diastolic (congestive) heart failure (4) Cerebral palsy: Status: Acute Code(s): G80.9 - Cerebral palsy, unspecified (5) Debility: Status: Acute Code(s): R53.81 - Other malaise (6) Diabetes mellitus: Status: Acute Code(s): E11.9 - Type 2 diabetes mellitus without complications (7) Hypothyroid: Status: Acute Code(s): E03.9 - Hypothyroidism, unspecified (8) RAJAN (obstructive sleep apnea): Status: Acute Code(s): G47.33 - Obstructive sleep apnea (adult) (pediatric) (9) GERD (gastroesophageal reflux disease): Status: Acute Code(s): K21.9 - Gastro-esophageal reflux disease without esophagitis (10) Depression: Status: Acute Code(s): F32.A - Depression, unspecified (11) BPH (benign prostatic hyperplasia): Status: Acute Code(s): N40.0 - Benign prostatic hyperplasia without lower urinary tract symptoms (12) CAD (coronary artery disease): Status: Acute Code(s): I25.10 - Atherosclerotic heart disease of [place] coronary artery without angina pectoris Qualifiers: Associated angina: with other forms of angina Coronary Disease-Associated Artery/Lesion type: [place] artery [place] vs. transplanted heart: [place] heart Qualified Code(s): I25.118 - Atherosclerotic heart disease of [place] coronary artery with other forms of angina pectoris (13) HTN (hypertension): Status: Chronic Code(s): I10 - Essential (primary) hypertension Qualifiers: Hypertension type: primary hypertension Qualified Code(s): I10 - Essential (primary) hypertension (14) Complex sleep apnea syndrome: Status: Chronic Code(s): G47.39 - Other sleep apnea Problem details: Noncompliant with BiPAP therapy. 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 (16) Hydrocephalus: Status: Chronic Code(s): G91.9 - Hydrocephalus, unspecified Meds Home Medications and Allergies Home Medications ?Medication ?Instructions ?Recorded ?Confirmed ?Type atorvastatin 40 mg tablet (Lipitor) 40 mg PO HS 03/24/17 12/19/24 History isosorbide mononitrate 30 mg 30 mg PO DAILY 04/11/17 12/19/24 History tablet,extended release 24 hr magnesium oxide 400 mg PO HS 09/30/17 12/19/24 History omeprazole 20 mg capsule,delayed 20 mg PO DAILY Acid Reflux 11/10/17 12/19/24 History release losartan 25 mg tablet (Cozaar) 25 mg PO DAILY 09/29/18 12/19/24 History aspirin 81 mg chewable tablet 81 mg PO DAILY 01/25/19 12/19/24 History trazodone 100 mg tablet 100 mg PO HS 02/24/20 12/19/24 History metformin 500 mg tablet 500 mg PO BIDWMEAL 10/30/20 12/19/24 History duloxetine 60 mg capsule,delayed 60 mg PO DAILY 10/17/21 12/19/24 History release linagliptin 5 mg tablet (Tradjenta) 5 mg PO DAILY 10/17/21 12/19/24 History tiotropium bromide 1.25 2 puff inhalation DAILY 10/17/21 12/19/24 History mcg/actuation mist for inhalation (Spiriva Respimat) multivitamin with folic acid 400 1 tab PO DAILY 03/10/23 12/19/24 History mcg tablet (Tab-A-Laron) levetiracetam 1,000 mg tablet 1,000 mg PO BID 05/01/23 12/19/24 History (Keppra) tamsulosin 0.4 mg capsule (Flomax) 0.4 mg PO DAILY #30 caps 04/05/24 12/19/24 Rx spironolactone 50 mg tablet 25 mg (1/2 x 50 mg) PO DAILY 30 04/12/24 12/19/24 Rx days #0 tabs folic acid 800 mcg tablet 0.8 mg PO DAILY 06/02/24 12/19/24 History cyanocobalamin (vitamin B-12) 250 750 mcg PO DAILY 07/13/24 12/19/24 History mcg tablet levothyroxine 50 mcg tablet 50 mcg PO DAILYDM 07/13/24 12/19/24 History sennosides 8.6 mg tablet (Senna 17.2 mg PO BID 07/13/24 12/19/24 History Laxative) cariprazine 1.5 mg capsule 1.5 mg PO DAILY 11/30/24 12/19/24 History (Vraylar) gabapentin 600 mg tablet 600 mg PO TID #90 tabs 12/07/24 12/19/24 Rx tramadol 50 mg tablet 100 mg (2 x 50 mg) PO Q6H #240 tabs 12/07/24 12/19/24 Rx furosemide 40 mg tablet (Lasix) 40 mg PO MOTUWETHFR PRN Leg 12/22/24 12/19/24 Rx swelling 30 days #0 tabs levofloxacin 750 mg tablet 750 mg PO DAILY 2 days #2 tabs 12/22/24 Rx polyethylene glycol 3350 17 gram 17 g PO BID 30 days #0 ea 12/22/24 12/19/24 Rx oral powder packet New Prescriptions to Start Prescriptions: levofloxacin Connor Riggs Allergies Allergy/AdvReac Type Severity Reaction Status Date / Time morphine (MORPHINE) Allergy Mild HURTS Verified 11/30/24 10:48 STOMACH nitroglycerin AdvReac Mild Nausea Verified 11/30/24 10:48 Discharge Plan Disposition Patient Disposition: er Intermediate Care Fac Condition: Fair Discharge Order Discharge Orders: Discharge Order (Routine); Ordered 12/22/24 Ordered By: Connor Riggs Follow up Plan Prescriptions/Medication Reconciliation: New levofloxacin 750 mg tablet 750 mg PO DAILY 2 Days Qty: 2 0RF Continued atorvastatin [Lipitor] 40 mg tablet 40 mg PO HS losartan [Cozaar] 25 mg tablet 25 mg PO DAILY magnesium oxide 400 mg capsule 400 mg PO HS tamsulosin [Flomax] 0.4 mg capsule 0.4 mg PO DAILY Qty: 30 3RF metformin 500 mg tablet 500 mg PO BIDWMEAL Tradjenta 5 mg tablet 5 mg PO DAILY Spiriva Respimat 1.25 mcg/actuation mist 2 puff inhalation DAILY sennosides [Senna Laxative] 8.6 mg tablet 17.2 mg PO BID cyanocobalamin (vitamin B-12) 250 mcg tablet 750 mcg PO DAILY Vraylar 1.5 mg capsule 1.5 mg PO DAILY isosorbide mononitrate 30 mg tablet extended release 24 hr 30 mg PO DAILY gabapentin 600 mg tablet 600 mg PO TID Qty: 90 3RF tramadol 50 mg tablet 100 mg PO Q6H Qty: 240 2RF aspirin 81 MG tablet,chewable 81 mg PO DAILY levetiracetam [Keppra] 1,000 mg tablet 1,000 mg PO BID spironolactone 50 mg tablet 25 mg PO DAILY 30 Days Qty: 0 0RF omeprazole 20 MG capsule,delayed release(DR/EC) 20 mg PO DAILY levothyroxine 50 mcg tablet 50 mcg PO DAILYDM duloxetine 60 mg capsule,delayed release(DR/EC) 60 mg PO DAILY trazodone 100 MG tablet 100 mg PO HS multivitamin with folic acid [Tab-A-Laron] 400 mcg Tablet 1 tab PO DAILY folic acid 800 mcg tablet 0.8 mg PO DAILY Changed furosemide [Lasix] 40 mg tablet 40 mg PO MOTUWETHFR PRN (Reason: Leg swelling) 30 Days Qty: 0 0RF polyethylene glycol 3350 17 gram powder in packet 17 g PO BID 30 Days Qty: 0 0RF Discontinued cefdinir 300 mg capsule 300 mg PO BID Rx Instructions: STARTED 12/13/24, FOR 7 DAYS Problem Reconciliation Problems Reviewed?: Yes Patient Discharge Instructions Patient Instructions: Pneumonia in Adults, Sepsis, Atypical Pneumonia, Stop Light Pneumonia, Stop Light Infection Print Language: [place] Providers Primary Care Provider: Provider,Referral Admit Provider: Luis Go Attending Provider: Luis Go
--- NOTE | 2024-12-22 12:36 | DIET.NUTRFU ---
RD met with patient, plans to return to [place] today. Continues on [facility], staff is assisting with meals. Talked to patient and staff assists him at [place] also with meals. He reported stable weight and no dietary concerns
[2024-12-23 16:00] LABS: POC Glucose,Bedside 177 gm/dL (70-110)
== END 2024-12-22 16:07 | DRG 871 ==
LOC: ER 17:24 → 2ND 17:42
PROVIDERS: Physician Assistant; Admitting Provider Internal Medicine Adolescent Medicine; Emergency Provider Emergency Medicine; Visit Provider Internal Medicine Adolescent Medicine
DX: A41.9 Sepsis, unspecified organism (principal); G93.41 Metabolic encephalopathy; J18.9 Pneumonia, unspecified organism; J96.21 Acute and chronic respiratory failure with hypoxia; I50.32 Chronic diastolic (congestive) heart failure; G91.9 Hydrocephalus, unspecified; E87.0 Hyperosmolality and hypernatremia; N17.9 Acute kidney failure, unspecified; E87.20 Acidosis, unspecified; G80.1 Spastic diplegic cerebral palsy; E03.9 Hypothyroidism, unspecified; F32.A Depression, unspecified; G40.909 Epilepsy, unspecified, not intractable, without status epilepticus; I11.0 Hypertensive heart disease with heart failure; E66.9 Obesity, unspecified; I25.118 Atherosclerotic heart disease of native coronary artery with other forms of angina pectoris; E11.65 Type 2 diabetes mellitus with hyperglycemia; G47.33 Obstructive sleep apnea (adult) (pediatric); N40.0 Benign prostatic hyperplasia without lower urinary tract symptoms; F17.210 Nicotine dependence, cigarettes, uncomplicated; G47.39 Other sleep apnea; K56.41 Fecal impaction; K21.9 Gastro-esophageal reflux disease without esophagitis; R53.81 Other malaise; Z91.199 Patient's noncompliance with other medical treatment and regimen due to unspecified reason; Z88.5 Allergy status to narcotic agent; Z88.8 Allergy status to other drugs, medicaments and biological substances; Z79.82 Long term (current) use of aspirin; Z79.84 Long term (current) use of oral hypoglycemic drugs; Z79.4 Long term (current) use of insulin; Z79.890 Hormone replacement therapy; Z79.899 Other long term (current) drug therapy; Z68.25 Body mass index [BMI] 25.0-25.9, adult
CPT/HCPCS: 0223U; 36415; 71045; 71275; 74018; 80048; 80053; 80202; 81001; 82803; 82962; 83605; 83735; 83880; 84484; 85025; 85610; 87040; 87086; 89220; 93005; 94640; 94660; 94761; 97162; 97165; 99285; G0378; J1650; J2543; J3373; J3375; J7050; J7070; Q9967

== ENCOUNTER 2025-01-10 08:42 | Outpatient (CLI) | payer MEDICARE, MEDICAID, SELFPAY ==
--- OUTSIDE RECORDS SUMMARY | 2025-01-10 08:46 | XMS_ITS | Clinical Summary ---
Author Organization [facility] [employer] OFFICE Address [facility] [employer] [facility] [address] [place] [address] Care Team Providers Care Instructor Military Science Name Role Phone Unavailable Primary Care Provider [...] ID:Not on file Type:Not on file Address: [facility] [address] [place] [id number]
--- OUTSIDE RECORDS SUMMARY | 2025-01-10 08:46 | XMS_ITS | Clinical Summary ---
Author Organization Healthcare Address [address] [place] [address] Care Team Providers Care Traffic Officer Name Role Phone Roney Travis MD Primary Care Provider + [phone] Allergies Active Allergy Reactions Criticality Noted Date [...] Date Last Done Comments [facility]-Depression Screening 1958 [facility]-/Child/Adol SDOH Screenings 1958 [facility]- SDOH Screenings 1976 [facility]-Adult SDOH Screenings 1976 [facility]-DTaP,Tdap,and Td Vaccines (1 - Tdap) 1977 CT Colonography 12/23/2003 Colonoscopy 12/23/2003 FIT-DNA 12/23/2003 FIT 12/23/2003 FOBT 12/23/2003 Sigmoidoscopy 12/23/2003 [facility]-Colorectal Cancer Screening 12/23/2003 [facility]-Zoster Vaccines (1 of 2) 2008 [facility]-Pneumococcal Vaccine: 50+ Years (2 of 2 - PCV) 03/12/2018 03/12/2017, 11/17/2010 [id number] Vaccine ( season) 2024 03/28/2020, 03/07/2020 [facility]-Influenza [...] this topic Insurance MEDICARE [place] Care Teams Traffic Officer Relationship Specialty Start Date End Date Roney Travis MD [address] [place] [address] PCP - General 06/30/20
--- OUTSIDE RECORDS SUMMARY | 2025-01-10 08:46 | XMS_ITS | Clinical Summary ---
Author Organization [facility] Address [address] [place] [address] Care Team Providers Care Visual Merchandising Coordinator Name Role Phone Unavailable Primary Care Provider [...] 10/2022 Potentially Unsafe Housing Conditions Not on aky e 11/25/2022 Family and Community Support Answer [...]
[2025-01-10 08:57] LABS: Hematocrit 34.8 % (42.0-52.0); Hemoglobin 10.8 g/dL (14.1-18.0); Immature Granulocytes % 1.3 %; Mean Corpuscular HGB Conc 31.0 g/dL (31.8-35.4); Mean Corpuscular Hemoglobin 33.0 pg (27.0-31.2); Mean Corpuscular Volume 106.4 fl (80-94); Nucleated Red Blood Cells % 0 %; Platelet Count 204 K/mm3 (142-424); Red Blood Count 3.27 M/mm3 (4.60-6.20); Red Cell Distribution Width-SD 52.2 fL; White Blood Count 9.7 K/mm3 (4.8-10.8)
[2025-01-10 09:22] LABS: Iron 89 ug/dL (49-181)
[2025-01-10 09:37] LABS: Total Iron Binding Capacity 284 ug/dL (261-462)
[2025-01-10 10:00] LABS: Ferritin 32.7 ng/ml (17.9-464)
[2025-01-10 10:14] LABS: Vitamin B12 944 pg/mL (239-931)
[2025-01-10 10:32] LABS: Folate > 20.00 ng/mL
== END 2025-01-10 23:59 | disposition home or self-care (01) ==
LOC: LAB.DROPOF 08:42
PROVIDERS: PCP Family Medicine; Visit Provider Family Medicine
DX: D64.9 Anemia, unspecified (principal)
CPT/HCPCS: 36415; 82607; 82728; 82746; 83540; 83550; 85025

== ENCOUNTER 2025-02-04 09:13 | Outpatient (CLI) | payer MEDICARE, MEDICAID, SELFPAY ==
--- OUTSIDE RECORDS SUMMARY | 2025-02-04 09:15 | XMS_ITS | Clinical Summary ---
Author Organization Healthcare Address [address] [place] [address] Care Team Providers Care Database Programmer Analyst Name Role Phone Roney Travis MD Primary Care Provider + [phone] Allergies Active Allergy Reactions Criticality Noted Date [...] of 2 - PCV) 03/12/2018 03/12/2017, 11/17/2010 [id number] Vaccine ( season) 2024 03/28/2020, 03/07/2020 [facility]-Influenza Vaccine (#1) 10/18/202403/12, 12/30/2016, 02/17/2013, Additional history exists [facility]-RSV Vaccine: 60+ Years or (1 - 1-dose 75+ series) 2033 HPV Vaccines (No Doses Required) Completed [facility]-HIB Vaccines Aged Out No longer e [...] age to complete this topic [place] [address] [place] Care Teams Database Programmer Analyst Relationship Specialty Start Date End Date Roney Travis MD [address] [facility] [place] [id number] PCP - General 06/30/20
--- OUTSIDE RECORDS SUMMARY | 2025-02-04 09:15 | XMS_ITS | Clinical Summary ---
Author Organization [facility] [employer] OFFICE Address [facility] [employer] [facility] [address] [place] [address] Care Team Providers Care Cutting Room Supervisor Name Role Phone Unavailable Primary Care [...] Plan / Payer ( fective 2015-Present) Name:Lalito Balkely Relation to Subscriber:Self Name:Lalito Blakely Payer ID:Not on file Group ID:Not on file Type:Not on file Address: [facility] [address] [place] [id number]
--- OUTSIDE RECORDS SUMMARY | 2025-02-04 09:15 | XMS_ITS | Clinical Summary ---
Author Organization [facility] ystem Address [address] [place] [address] Care Team Providers Care Blanking Machine Operator Name Role Phone Unavailable Primary Care Provider [...]
[2025-02-04 09:37] LABS: Hematocrit 33.9 % (42.0-52.0); Hemoglobin 10.6 g/dL (14.1-18.0); Immature Granulocytes % 1.7 %; Mean Corpuscular HGB Conc 31.3 g/dL (31.8-35.4); Mean Corpuscular Hemoglobin 33.7 pg (27.0-31.2); Mean Corpuscular Volume 107.6 fl (80-94); Nucleated Red Blood Cells % 0 %; Platelet Count 240 K/mm3 (142-424); Red Blood Count 3.15 M/mm3 (4.60-6.20); Red Cell Distribution Width-SD 53.3 fL; White Blood Count 6.9 K/mm3 (4.8-10.8)
[2025-02-04 09:55] LABS: Alanine Aminotransferase 18 U/L (12-78); Albumin Level 3.6 g/dl (3.5-5.0); Albumin/Globulin Ratio 1.3 (1.1-1.8); Alkaline Phosphatase 63 U/L (38-126); Anion Gap 12.1 mEq/L (5-15); Aspartate Amino Transferase 23 U/L (17-59); Bilirubin,Total 0.4 mg/dl (0.2-1.3); Blood Urea Nitrogen 14 mg/dl (9-20); Calcium 8.5 mg/dl (8.4-10.2); Carbon Dioxide 26 mmol/L (22.0-30.0); Chloride 102 mmol/L (98-107); Creatinine,Serum 1.00 mg/dl (0.66-1.25); Estimated Glomerular Filt Rate 75 ml/min (>60); GFR (African American) 90 ML/MIN (>60); Globulin 2.8 g/dL (1.3-3.2); Glucose 181 mg/dl (74-100); Potassium 4.1 mmoL/L (3.5-5.1); Sodium 136 mmol/L (136-145); Total Protein,Serum 6.4 g/dl (6.3-8.2)
== END 2025-02-04 23:59 | disposition home or self-care (01) ==
LOC: LAB.DROPOF 09:14
PROVIDERS: PCP Family Medicine; Visit Provider Nurse Practitioner Family
DX: I50.20 Unspecified systolic (congestive) heart failure (principal)
CPT/HCPCS: 36415; 80053; 85025